=== PATIENT | female | born 1985 | race African-American/Black ===

== ENCOUNTER 2022-10-08 15:48 | Outpatient (RCR) | payer OTHER, SELFPAY ==
--- NOTE | 2022-10-08 16:32 | HP.PTEVAL ---
Patient's Visit Information MICHAEL CARDENAS is a 37 year old F referred to Physical Therapy by BANG Buchanan with a diagnosis of BPV. Date of Evaluation: 10/08/22 Physical Therapist: Flavio Honeycutt, FIONA, OCS, CSCS - Visit Plan Frequency: 1-2x /Week Duration: 2-4 Weeks Plan: 1-2x/week for 2-4 weeks as needed for. Positional treatments as needed(R baltazar today). monitor oculomotor for need for adaptation ex - Subjective Vertigo for a week since last Friday. Was at work and sat down for lunch and did not feel good. Got dizzy and nauseous and went home that day and dizzyness increased. laid out on in bed as she would spin if she moved. Friday had a friend take [facility] as dizzyness subsided but nausea did not. Gave meclizine and did not help at all. is slowly improving but not fast and has been up and down. Went back to work yesterday and today for 3 hours. Worse as she works. 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 Lays on couch when she goes home. Has handicapped 13 yo dtr and hard to take care of changing her diaper. It is terrrible. works evenings. spinning most of time, no more nausea now. Spinning is worse with turning head, walking, riding in car. Not driving and cannot. has tried Baltazar and does not get dizzy. - Objective Walks slow and not confidently but I back to PT [facility] room. Trasnfers I, holds head very still. Hesitant to move it too much. Cervical aROM is slow but WNL and without pain, feels stiff. - L Hallpike tiffany. + r hallpike tiffany with slight up torsional nystagmus and asyymetrical dizzyness for 15 seconds. Treated with Baltazar and then much better test and feeling. Walked out slowly but more steady than at arrival. - ocular tilt. - skew eye deviation. no nystagmus with gaze or spontaneous. 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 For the Purpose of:: To increase tolerance to activity/condition/position, To improve ability of physical actions for home/community/work/leisure Thank you for the opportunity to evaluate your patient. For Medicare and Medicare HMO plans, please review the plan of care and approve it. It will need to be FAXED BACK to us at [phone] for Medicare purposes. For Medicare only, by signing this I certify the plan of care. Please let me know if there are questions or concerns regarding this plan of care. Physician Signature: Date:
--- NOTE | 2022-12-03 12:59 | HP.PT.NRP ---
MICHAEL CARDENAS was seen in my office for initial evaluation on 10/08/22. The following Plan of Care was established for this patient: Initial Frequency: 1-2x /Week Initial Duration: 2-4 Weeks Patient/Client Instruction: Educate patient on: Condition, Plan of Care For the Purpose of:: To increase tolerance to activity/condition/position, To improve ability of physical actions for home/community/work/leisure, To improve gait and locomotor functions For the Purpose of:: To increase tolerance to activity/condition/position, To improve ability of physical actions for home/community/work/leisure This patient was last seen in our office 10/08/22. Pertinent comments regarding their Physical therapy will appear below: Pt seen for IE and POC set. She was treated with Luis maneuver. She cancelled the rest of her visits. AT this point, it has been over 6 weeks and i will discontinue due to nonattendance. At this point I will be discontinuing this patient from physical therapy. I would be happy to see this patient again in the future if found appropriate by the physician. Thank you! Flavio Honeycutt, DPT, OCS, CSCS Balance/Gait/Functional tests - Balance/Special Test Scores Functional Gait Assessment Score: 19 % Disability: 36.6700 Dizziness Score: 84
== END 2022-10-08 19:00 | disposition home or self-care (01) ==
LOC: PT 15:48
PROVIDERS: Referring Provider Physician Assistant; Visit Provider Physician Assistant
DX: H81.10 Benign paroxysmal vertigo, unspecified ear (principal)
CPT/HCPCS: 97110; 97161

== ENCOUNTER 2022-11-08 19:08 | Emergency (ER) | payer OTHER, SELFPAY ==
[2022-11-08 19:09] VITALS: BP 113/75; PULSE 121; RESP 18; TEMP 37.3; O2SAT 98; BMI 48.1
== END 2022-11-08 21:41 | disposition left against medical advice (07) ==
LOC: ED 21:42
DX: R50.9 Fever, unspecified (principal); Z53.21 Procedure and treatment not carried out due to patient leaving prior to being seen by health care provider; Z20.822 Contact with and (suspected) exposure to COVID-19
CPT/HCPCS: 87811

== ENCOUNTER → 2025-01-27 | Outpatient (CLI) | payer OTHER, SELFPAY ==
--- NOTE | 2025-01-27 09:30 | RAD_ITS ---
PROCEDURE: RIGHT HIP INJECTION UNDER FLUOROSCOPY REASON FOR EXAM: RIGHT HIP PAIN. OSTEOARTHRITIS. NO KNOWN INJURY. TECHNIQUE: I was the proctoring radiologist for Nati Carrillo NP during this hip injection procedure. An overview of the procedure with the patient occurred in the imaging suite. The patient was given ample opportunity to ask questions regarding the procedure. The patient signed the informed consent form. The patient was positioned on the fluoroscopic table in the supine position. The needle puncture site was marked under fluoroscopy. Sterile preparation of the skin was performed as usual. Local anesthesia was accomplished with lidocaine 2%. A 25 gauge, 3-1/2 inch spinal needle was then advanced through the skin until the needle tip touched the hip cortex. A small amount of Isovue-300 contrast was injected to document appropriate position of the needle in the joint capsule. Following documentation of the needle tip position, a mixture of 2 mL (80 mg) Kenalog and 3 mL of 0.5% bupivicaine was injected into the joint capsule. COMPARISON: None. FINDINGS: Unremarkable hip injection under fluoroscopy. RAD/Inj/Asp Jarett Jt Should/Hip/Knee IMPRESSION: 1. SUCCESSFUL RIGHT HIP INJECTION under fluoroscopy as detailed above. Patient tolerated the procedure well. Thank you for this referral. Reading Location: [place] [address]
[2025-01-27] MEDS: Lidocaine 2% (5ml sdv) 5 ML VIAL.MPF INFILT (09:50)
[2025-01-27] MEDS: Triamcinolone Acetonide 40 MG/ML Vial 80 MG INTRAARTIC (09:55)
[2025-01-27] MEDS: Bupivacaine 0.5% PF 10 ML VIAL INTRAARTIC (09:55)
== END | disposition home or self-care (01) ==
PROVIDERS: Referring Provider Orthopaedic Surgery; Visit Provider Orthopaedic Surgery
DX: M25.551 Pain in right hip (principal); M16.11 Unilateral primary osteoarthritis, right hip; G89.29 Other chronic pain
CPT/HCPCS: 20610; 77002

== ENCOUNTER → 2025-05-10 | Outpatient (CLI) | payer OTHER, SELFPAY ==
--- NOTE | 2025-05-10 13:30 | RAD_ITS ---
PROCEDURE: INJ/ASP JARETT JT SHOULD/HIP/KNEE 05/10/2025 REASON FOR EXAM: UNILATERAL PRIMARY OSTEOARTHRITIS, RIGHT HIP TECHNIQUE: INJ/ASP JARETT JT SHOULD/HIP/KNEE. The procedure as well as the benefits and possible complications including infection and bleeding were explained to the patient. Informed consent was obtained. The overlying skin was prepped and draped in the usual sterile fashion. Following local anesthetic application, a 22 gauge spinal needle was placed into the hip joint. 2 cc of Isovue-300 was injected for confirmation. Following this, injection of medication was performed. The patient tolerated the procedure well. 1 minute and 59 seconds of fluoroscopy. 76.3 mGy. 3 spot images were submitted. COMPARISON: None FINDINGS: Successful right shoulder injection. RAD/Inj/Asp Jarett Jt Should/Hip/Knee IMPRESSION: Patient tolerated the procedure well. Reading Location: [place] [address]
[2025-05-10] MEDS: Lidocaine 2% (5ml sdv) 5 ML VIAL.MPF INFILT (13:45)
[2025-05-10] MEDS: Triamcinolone Acetonide 40 MG/ML Vial 80 MG OPERA.SITE (13:49)
[2025-05-10] MEDS: Bupivacaine Mpf 0.5% 30 ML VIAL OPERA.SITE (13:49)
--- NOTE | 2025-05-10 14:01 | PCM.OPRPT ---
Problems Associated Problem List Diagnoses (1) Right hip pain: (2) Unilateral primary osteoarthritis, right hip: Multi Select Codes Radiology Rad Xray Procedures: 18763 Inj Asp major Joint - Hip, Knee and 08974-10 Fluoroscopic guidance for needle placement Operative Report (Standard) Operative Information Date of Procedure: 05/10/25 Pre-Operative Diagnosis: Right hip pain Post-Operative Diagnosis: Right hip pain Surgery/Procedure Performed: Fluoroscopic guided right hip injection manager laundry: No Type of Anesthesia: Local Procedure Start Time: 13:38 Procedure Stop Time: 13:56 Select all DRAINS/GRAFTS/IMPLANTS that apply: None Estimated Blood Loss: 0 Specimen collected: No Description of surgery: PROCEDURE: Fluoroscopic Guided right hip injection ORDERING PROVIDER: Dr. Amado INDICATION: Female, 40 years old. Right hip pain. PROVIDER: ANTOLIN Carrasco FLUOROSCOPY TIME: 1 minutes/59 seconds. 43.5 mGy CONSENT: The risks, benefits, and alternatives to the procedure were explained to the patient. The specific risks of bleeding, infection, and neurovascular injury were detailed and accepted. Witnessed informed consent was obtained. TECHNIQUE: The right hip access site was prepped with chlorhexidine and draped in sterile fashion. 2% Lidocaine was administered subcutaneously for local anesthesia. A 22-gauge spinal needle was positioned under radiographic fluoroscopic localization. Approximately 2 cc of Isovue 300 instilled for localization purposes. Medication was then injected. MEDICATIONS: 80 mg of Kenalog and 3 ml of 0.5% bupivacaine. The spinal needle was removed, and a dressing was applied. The patient tolerated the procedure well without any immediate complications. The procedure was proctored by interventional radiologist Dr. Hemphill. IMPRESSION: Successful fluoroscopic guided right hip injection. Surgical Findings: None Complications Complications: No
== END | disposition home or self-care (01) ==
LOC: RAD 13:12
PROVIDERS: PCP Family Medicine; Referring Provider Orthopaedic Surgery; Visit Provider Orthopaedic Surgery
DX: M16.11 Unilateral primary osteoarthritis, right hip (principal)
CPT/HCPCS: 20610; 77002; Q9967

== ENCOUNTER 2025-05-12 05:30 | Day surgery (SDC) | payer OTHER, SELFPAY ==
--- NOTE | 2025-04-26 12:54 | PCM.HP.BLA ---
History and Physical Date of Admission: 05/12/25 HPI: The patient is a 39 year old female presenting for pre-operative visit. She is scheduled for TLH, bilateral salpingectomy with left oophorectomy, for menorrhagia, fe def anemia, subserous fibroids, dyspareunia on 05/12/25. Procedure discussed along with risks, benefits and complications. Other alternatives discussed for management. Consent form signed? Yes. ? ? PAST MEDICAL HISTORY PAST MEDICAL HISTORYDiagnosisDate?Acute pain of both hips03/01/2022?Cymbalta has helped. 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 Sandoval ?Iron deficiency [id number]/24/2022?Low iron01/23/2021?Muscle spasm05/19/2013?MVP (mitral valve prolapse)02/10/2014?On 2 D echo 01/2014 ?Pain in joint, ankle and foot02/19/2012?Pseudotumor cerebri??Right hip pain06/25/2021?Saw Ortho (Dr. Amado) Told bone on bone.?Routine gynecological examination??Dr Flood?Valvular heart [id number]/10/2014?2D echo 01/2014: 1+ MVI and TI ?Vitamin D mtzolpqobn07/20/2014 ? ? PAST SURGICAL HISTORY PAST SURGICAL HISTORYProcedureLateralityDate?2D ECHO (EXEP)??EF=60%, mild MVP, +1 MVI and TI? DELIVERY ONLY???, low cervical? DELIVERY ONLY?07/07/2017?LIGATE FALLOPIAN TUBE?2017?at csection?PAST SURGICAL HISTORY OF?08/2000?TENDON REPAIR RIGHT WRIST?STRESS ECHO?02/13/2021?normal?TONSILLECTOMY PRIMARY/SECONDARY <AGE 12?02/2014?Tonsillectomy ? ? ? CURRENT MEDICATIONS Current Outpatient MedicationsMedicationSigDispenseRefill?norethindrone (AYGESTIN) 5 mg tabletTAKE 1 TABLET BY MOUTH EVERY DAY90 tablet3?zonisamide (ZONEGRAN) 50 mg capsuleTake 1 capsule by mouth once daily.90 capsule0?acetaminophen (TYLENOL ARTHRITIS ORAL)Take 2 tablets by mouth two times a day as needed.???meloxicam (MOBIC) 15 mg tabletTake 1 tablet by mouth once daily.30 tablet6?No current facility-administered medications for this visit. ? ? ALLERGIES: Diamox [Acetazolamide] ? PERSONAL HISTORY: SOCIAL HISTORY Social History?Tobacco Use?Smoking status:Never?Smokeless tobacco:NeverVaping Use?Vaping status:Never UsedSubstance Use Topics?Alcohol use:Yes??Comment: Occasionally, not while ?Drug use:No ? FAMILY HISTORY: FAMILY HISTORY FAMILY HISTORY ProblemRelationAge of Onset?SeizuresMother?? tonic-clonic, quiescent off medication?No Known ProblemsFather??No Known ProblemsSister??No Known ProblemsSister??No Known ProblemsSister??No Known ProblemsBrother??No Known ProblemsBrother??No Known ProblemsBrother??COPDMaternal Grandmother??DiabetesMaternal Grandfather??HypertensionMaternal Grandfather??HeartMaternal Grandfather?? had a difibulator?HypertensionPaternal Grandmother??other (Other)Paternal Grandmother?? No breast/electrical tech/project manager cancer?AneurysmPaternal Grandfather??other (cask gene mutation)Daughter??Coronary Artery DiseaseNo Family History? ? ? REVIEW OF SYMPTOMS: GENERAL: denies fevers or chills ENDOCRINOLOGY: has not been on steroids Cardiology : denies palpitations or chest pain Respiratory: denies SOB or cough Hematology: denies history of prolonged bleeding or easy bruising or VTE Allergy: Denies history of personal or family history of allergy to anesthesia ? PHYSICAL EXAMINATION: ? VITALS: Blood pressure 134/90, height 157.5 cm (5' 2), weight 104.3 kg (230 lb), last menstrual period 02/10/2025. ? GENERAL: The patient is well nourished, well hydrated in no acute distress. , The patient is oriented to time, place, and person. NECK: Supple. No lynphadenopathy, normal thyroid, no thyromegaly. LUNGS: Clear to auscultation bilaterally. no wheezes, rhonchi or rales HEART: Regular rate and rhythm, Normal heart sounds, and No murmurs or gallops ? Pelvic US: 01/21/25 Uterus Uterus: Visualized Uterus position: anteverted cervix, axial fundus Description of uterine malformations: none Myometrium: heterogeneous Endometrium: homogenous, borders of the endo not well defined Cervix details: cystic lesions identified suggesting superficial Nabothian cysts Uterus length 107 mm Uterus width 58 mm Uterus height 45 mm Uterus Vol 147.0 cm? Endometrial thickness, total 4.0 mm Fibroids: Fibroids identified Uterine fibroid D1 11 mm Uterine fibroid D2 11 mm Uterine fibroid D3 13 mm Uterine fibroid mean 11.7 mm Uterine fibroid vol 0.824 cm? Uterine fibroids findings: Left lateral posterior wall. Subserous Right Ovary Rt ovary: Visualized Rt ovary morphology: premenopausal normal follicular Rt ovary D1 33 mm Rt ovary D2 17 mm Rt ovary D3 14 mm Rt ovary Vol 4.0 cm? Left Ovary Lt ovary: Visualized Lt ovary morphology: premenopausal normal follicular Lt ovary D1 32 mm Lt ovary D2 30 mm Lt ovary D3 19 mm Lt ovary Vol 9.6 cm? Cul de Sac Visualized. no free fluid visualized ? ? IMPRESSION: menorrhagia, dyspareunia, fe def.anemia, subserosal fibroids ? PLAN: The risks/benefits/alternatives and personal involved for the planned TLH, LSO, right salpingectomy were reviewed with the patient. Her questions were answered to her satisfaction and she desires to proceed. Consent was signed. I reviewed with her postop instructions and expectations. ? ? I have reviewed and updated past medical and surgical history, medications and allergies Assessment & Plan Assessment/Plan (1) Menorrhagia: QUALIFIERS: Menorrhagia type: with regular cycle Qualified Code(s): N92.0 - Excessive and frequent menstruation with regular cycle (2) Dyspareunia: (3) Submucous uterine fibroid: (4) Fe deficiency anemia: QUALIFIERS: Iron deficiency anemia type: chronic blood loss Qualified Code(s): D50.0 - Iron deficiency anemia secondary to blood loss (chronic)
--- NOTE | 2025-04-29 10:16 | PAT.ANESEVAL ---
Pre-Assessment Diagnosis/Proposed Procedure Planned Operative Procedure(s): ERAS, Hysterectomy,TLH, bilateral salpingectomy, left oophorectomy, cystoscopy Anesthesia History Anesthesia History - children's counselor: Anesthesia History - children's counselor Hx Hospitalization No 04/29/25 08:25 Any Problems With Anesthesia Yes: PONV 04/29/25 08:25 Cholinesterase deficiency No 04/29/25 08:25 You/Your Family Experience No 04/29/25 08:25 fever (hyperthermia) with Relationship Recent Exposure to Contagious Disease Does patient have nerve No 04/29/25 08:25 stimulator Patient instructed to have device shut off --Does patient have Pacemaker or ICD? When Was Last Pacemaker Check QUESTION #4 FULL TEXT: You/Your Family Experience fever (hyperthermia) with Anesthesia Last Oral Intake Last Oral intake: Last Oral Intake NPO since Meds taken in AM with sips of water? Meds patient instructed to take am of surgery PONV PONV - children's counselor: PONV - children's counselor Female Yes 04/29/25 08:25 HX of Motion Sickness No 04/29/25 08:25 HX of N/V After Surgery No 04/29/25 08:25 Non-Smoker Yes 04/29/25 08:25 Duration of Surgery greater Yes 04/29/25 08:25 than 60 minutes Number of Risk Factors 3 04/29/25 08:25 PONV Score Moderate Risk 04/29/25 08:25 Height & Weight Height & Weight: Anesthesia: Height & Weight Height 5 ft 2 in 11/08/22 19:09 Respiratory Assessment Respiratory Assessment - children's counselor: Respiratory Tract Infection Hx - children's counselor Hx Respiratory Tract Infection No 04/29/25 08:25 STOP Sleep Apnea STOP Sleep Apnea - children's counselor: STOP Sleep Apnea - children's counselor Hx Hypertension No 04/29/25 08:25 Hx Sleep Apnea No 04/29/25 08:25 CPAP BIPAP Do you snore loudly (louder No 04/29/25 08:25 than talking or can be heard Do you often feel tired/ No 04/29/25 08:25 fatigued/ sleepy during daytime? Has anyone observed you stop No 04/29/25 08:25 breathing during sleep? STOP Results Negative 04/29/25 08:25 QUESTION #5 FULL TEXT : Do you snore loudly (louder than talking or can be heard through closed doors)? 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 Specify any problems Hx of Preganancy in last 3 No 04/29/25 08:25 Months Nurse Filling Out Transfusion MGRIKARENITH 04/29/25 08:25 & Questions: Date: 04/29/25 04/29/25 08:25 Time: 08:27 04/29/25 08:25 Patient unable to answer at this time (ie. confused, unrespo /Reproduction History /Reproductive History - children's counselor: /Reproductive Hx- children's counselor Hx Now No 04/29/25 08:25 Gestational Age (in weeks): EDC: Hx Hx Para Hx Section SAB No 04/29/25 08:25 [facility] Medical History (Updated 04/29/25 @ 08:36 by Love Olivo) Wears glasses Alcohol use Rash Low iron Migraine headache Non-smoker History of echocardiogram PONV (postoperative nausea and vomiting) BPPV (benign paroxysmal positional vertigo) Home Medications ?Medication ?Instructions ?Recorded ?Last Taken ?Type kjawuxfcdq-gvgfyuinzglci-gltktbeg 1 tab PO Q6H PRN Headache #40 tabs 07/10/17 Unknown Rx 50 mg-325 mg-40 mg tablet meclizine 25 mg tablet 25 mg PO TID PRN dizziness #30 tabs 10/03/22 Unknown Rx Allergy/AdvReac Type Severity Reaction Status Date / Time No Known Allergies Allergy Verified 04/29/25 08:22 Surgical History (Updated 04/29/25 @ 08:25 by Love Olivo) History of tonsillectomy and adenoidectomy History of Social History (Updated 07/31/18 @ 11:34 by Johnny CUENCA, PA) Smoking Status: Never smoker Audit: Pertinent Findings Pertinent Findings Echo (EF%) pertinent findings: 02/07/2014. EF 60%. Recommendation Anesthesia Recommendation Anesthesia recommendation: OPTIMIZED for anesthesia
[2025-05-05 09:28] LABS: Hematocrit 40.5 % (37-47); Hemoglobin 13.2 g/dL (12.0-15.0); Mean Corp Hgb Conc 32.6 g/dL (32-36); Mean Corpuscular Hgb 28.3 pg (27.0-32.0); Mean Corpuscular Volume 86.7 fL (81-99); Mean Platelet Vol. 10.7 fl (6.2-12.0); Platelet Count 395 K/mm3 (150-450); RBC Distribution Width CV 18.3 % (11.6-14.6); Red Blood Count 4.67 M/mm3 (4.2-5.4)
[2025-05-05 09:32] LABS: Prothrombin Time (Protime)PT. 13.4 SECONDS (11.7-14.9)
[2025-05-05 09:33] LABS: Partial Thromboplast Time 27.5 Seconds (24.1-36.2)
[2025-05-05 09:56] LABS: Magnesium 2.2 mg/dL (1.5-2.2)
[2025-05-12] VITALS (11 sets, daily range): BP systolic 108–158; BP diastolic 70–89; PULSE 65–84; RESP 14–16; TEMP 36.1–36.7; O2SAT 96–100; BMI 42.7
--- OUTSIDE RECORDS SUMMARY | 2025-05-12 05:33 | XMS RPT_ITS | CCD ---
Author Organization [facility] Care Team Providers Care Elastic Tape Inserter Name Role Phone Sanket Cruz MD Primary Care Provider MD Romulo Templeton Primary Care Provider Unavaila MD Romulo Valdez Referring Provider Unavailable BANG Elliott Attending Provider Sanket Cruz MD Primary Care Provider Sanket Cruz MD Primary Care Provider Sanket Cruz MD Primary Care Provider Milind DEPOSITING MACHINE OPERATOR.Funmilayo FELIX Unavailable Shena Dwyer PA-C Unavailable Mine Doty MD Unavailable Care Physician, No Primary Primary Care Provider Unavailable Dr. Erick Brownlee MD Attending Provider Dr. Erick Brownlee MD Referring Provider Sanket Cruz MD Primary Care Provider Sanket Cruz MD Primary Care Provider Draganhaussabiha DEPOSITING MACHINE OPERATOR.TYPESETTERS PRINTERAbadTanya Unavailable Milind DEPOSITING MACHINE OPERATOR.TYPESETTERS PRINTER Funmilayo Unavailable Heenaoble DEPOSITING MACHINE OPERATOR.ELVIRA Funmilayo Unavailable Shena Dwyer PA-C Unavailable SANKET CRUZ Primary Care Unavailable SANKET CRUZ Primary Care Unavailable FUNMILAYO DAVIES Referring Unavailable SANKET CRUZ Primary Care Unavailable FUNMILAYO DAVIES Referring Unavailable SANKET CRUZ Primary Care Unavailable MINE DOTY Referring Unavailable NANCY, SANKET A Primary Care Unavailable TANYA VERNON Attending Unavailable NANCY, SANKET A Primary Care Unavailable SORENMINE Referring Unavailable MINE DOTY Attending Unavailable NANCY, SANKET A Primary Care Unavailable SHENA DWYER Referring Unavailable GRANT, PETRA Attending Unavailable NANCY, SANKET A Primary Care Unavailable GRANT, PETRA Referring Unavailable NANCY, SANKET A Primary Care Unavailable GRANT, PETRA Referring Unavailable NANCY, SANKET A Primary Care Unavailable NANCY, SANKET A Attending Unavailable NANCY, SANKET A Primary Care Unavailable NANCY, SANKET A Primary Care Unavailable GRANT, PETRA Referring Unavailable NANCY, SANKET A Primary Care Unavailable GRANT, PETRA Referring Unavailable NANCY, SANKET A Primary Care Unavailable SOREN, MINE Referring Unavailable TIM YIP Attending Unavailable NANCY, SANKET A Primary Care Unavailable SHENA DWYER Attending Unavailable NANCY, SANKET A Primary Care Unavailable SHENA DWYER Referring Unavailable NANCY, SANKET A Primary Care Unavailable NANCY, SANKET A Attending Unavailable NANCY, SANKET A Primary Care Unavailable TIM YIP Attending Unavailable NANCY, SANKET A Primary Care Unavailable NANCY, SANKET A Primary Care Unavailable NANCY, SANKET A Referring Unavailable NANCY, SANKET A Primary Care Unavailable NANCY, SANKET A Referring Unavailable ERICK BROWNLEE Attending Unavailable NANCY, SANKET A Primary Care Unavailable MINE DOTY Attending Unavailable NANCY, SANKET A Primary Care Unavailable SOREN, MINE Referring Unavailable NANCY, SANKET A Primary Care Unavailable GRANT, PETRA Referring Unavailable NANCY, SANKET A Primary Care Unavailable GRANT, PETRA Referring Unavailable Nancy, Sanket Primary Care Unavailable Tim Yip Attending Unavailable Tim Yip Referring Unavailable Care Physician, No Primary Primary Care Unava ilable Erick Brownlee Attending Unavailable Erick Brownlee Referring Unavailable Nancy, Sanket Primary Care Unavailable Erick Brownlee Attending Unavailable Erick Brownlee Referring Unavailable BROOKE DUNCAN Attending Unavailable NANCY, SANKET A Primary Care Unavailable DAKAVITHAHAUSSABIHA, TANYA Referring Unavailable BROOKE DUNCAN Attending Unavailable NANCY, SANKET A Primary Care Unavailable NANCY, SANKET A Primary Care Unavailable ABAD VERNONISTEN Referring Unavailable Shena Dwyer PA-C Unavailable [phone] Allergies Allergy Classification Reported Allergen(s) Allergy Type Date of Onset Reaction(s) Facility (20 sources) acetaZOLAMIDE; Translations: [ACETAZOLAMIDE] Drug Allergy 05-16-2016 Other: See Comments [facility] Work Phone: Medications Current Medications Medication Drug Class(es) Dates Sig (Normalized) Sig (Original) acetaminophen 325 mg / butalbital 50 mg / caffeine 40 mg oral tablet (3 sources) Barbiturate, Central Nervous System Stimulant, Methylxanthine Start: 07-10-2017 Butalbital-Aceta minophen-Caff 1 TABLET tablet Active 1 {tbl} PO EVERY 6 HOURS as needed for Headache July 10, 2017 12:00am Start: 07-10-2017 take 1 tablet by king th every six hours Nlnkxtnyhp-Zfpvtmxjxtwna-Hxmo Active 1 T ABLET PO EVERY 6 HOURS July 09, 2017 11:00pm amoxicillin 875 mg / clavulanate 125 mg oral tablet (2 sources) Penicillin-class Antibacterial Start: 02-25-2025 End: 03-04-2025 take 1 tablet by mouth twice daily amoxicillin-clavulanate potassium (AUGMENTIN) 875-125 mg per tablet Indications: Acute otitis media, left Take 1 tablet by mouth two times a day for 7 days. 14 tablet 02/25/2025 03/04/2025 Active cefadroxil 500 mg oral capsule (1 source) Cephalosporin Antibacterial Start: 10-24-2022 End: 10-31-2022 take 1 capsule by mouth twice daily cefADROxil (DURICEF) 500 mg capsule Take 1 capsule by mouth twice daily for 7 days. 14 capsule 0 10/24/2022 10/31/2022 Active Comment on above: Take 1 capsule by mouth twice daily for 7 days. colistin 3 mg/ml / hydrocortisone 10 mg/ml / neomycin 3.3 mg/ml / thonzonium bromide 0.5 mg/ml otic suspension (1 source) Aminoglycoside Antibacterial, Corticosteroid Start: 10-24-2022 End: 10-31-2022 Ajwvwyoi-Ssemhl-JG-Thonz onium (CORTISPORIN-TC) otic suspension Use 3 Drops in the right ear three times daily for 7 days. (Disp 1 bottle) 10 mL 0 10/24/2022 10/31/2022 Active Comment on above: Use 3 Drops in the right ear three times daily for 7 days. (Disp 1 bottle) iv contrast (will be provided with radiology test) (2 sources) Start: 02-17-2025 End: 02-18-2025 inject 1 dose intravenously once iv contrast (will be provided with radiology test) MRI Brain Inject, intravenously, once for 1 dose.No IV access, insert saline lock prior to beginning of sedation, infusion, injection of imaging exam.Discontinue saline lock post exam. If Pt. has a central line or IVAD, may access for administration according to line specific nursing protocol.Once exam is complete flush line and de-access according to line specific nursing protocol in the MR contrast administration guidelines link 1 Each 02/17/2025 02/18/2025 Active Start: 02-17-2025 End: 02-18-2025 iv contrast (will be provide d with radiology test) MRV Brain Inject, intravenously, once for 1 dose. No IV access, insert saline lock prior to the beginning of sedation, infusion, injection of imaging exam. Discontinue saline lock post exam. If Pt. has a central line or IVAD, may access for administration according to line specific nursing protocol. Once exam is complete flush line and de-access according to line specific nursing protocol in the MR contrast administration guidelines link. 1 Each 02/17/2025 02/18/2025 Active meclizine hydrochloride 25 mg oral tablet (3 sources) Antiemetic Start: 10-03-2022 take 1 tablet by mouth three times daily as needed for dizziness Meclizine 25 mg tablet Active 25 mg PO THREE TIMES A DAY as needed for dizziness October 03, 2022 1:00am meloxicam 15 mg oral tablet (20 sources) Nonsteroidal Anti-inflammatory Drug Start: 12-02-2024 take 1 tablet by mouth once daily meloxicam (MOBIC) 15 mg tablet Take 1 tablet by mouth once daily. 30 tablet 6 12/02/2024 Active norethindrone acetate 5 mg oral tablet (20 sources) Start: 02-03-2025 End: 03-29-2025 take 1 tablet by mouth once daily norethindrone (AYGESTIN) 5 mg tablet TAKE 1 TABLET BY MOUTH EVERY DAY 90 tablet 3 03/29/2025 Active oxyCODONE hydrochloride 5 mg oral tablet (3 sources) Opioid Agonist Start: 07-11-2017 take 1 tablet by mouth every six hours as needed for pain Oxycodone 5 MG tablet Active 5 mg PO EVERY 6 HOURS NEEDED as needed for Pain July 11, 2017 12:00am DO NOT TAKE WITHIN 6 HOURS OF FIORICET perflutren lipid microspheres 1.3 mL in NaCl (PF) 0.9% 10 mL injection (DEFINITY) (6 sources) Start: 12-20-2020 End: 03-21-2022 perflutren lipid microspheres 1.3 mL in NaCl (PF) 0.9% 10 mL injection (DEFINITY) Prenatabs FA (3 sources) Start: 07-07-2017 Prenatabs FA Active 1 {tbl} PO DAILY July 07, 2017 12:00am Start: 07-07-2017 take 1 tablet by king th once daily Prenatabs FA Active 1 TABLET PO DAILY July 06, 2017 11:00pm 125 ml sodium chloride 9 mg/ml prefilled syringe (6 sources) Start: 12-20-2020 End: 03-21-2022 sodium chloride 0.9 % (flush) 10 mL (BD POSIFLUSH) zonisamide 50 mg oral capsule (20 sources) Anti-epileptic Agent Start: 02-17-2025 End: 06-09-2025 take 1 capsule by mouth once daily zonisamide (ZONEGRAN) 50 mg capsule Take 1 capsule by mouth once daily. 90 capsule 03/11/2025 06/09/2025 Active Start: 08-15-2022 End: 10-24-2022 take 1 capsule by mouth once daily zonisamide (ZONEGRAN) 25 mg capsule Take 1 capsule by mouth once daily for 10 days. 10 capsule 0 08/15/2022 10/24/2022 Discontinued Start: 07-02-2022 End: 09-30-2022 take 1 capsule by mouth once daily zonisamide (ZONEGRAN) 100 mg capsule Indications: Pseudotumor cerebri , Chronic intractable headache, unspecified headache type Take 1 capsule by mouth once daily. 30 capsule 2 07/02/2022 08/15/2022 Discontinued Start: 04-29-2022 End: 07-02-2022 zonisamide (ZONEGRAN) 50 mg capsule Indications: Pseudotumor cerebri , Chronic intractable headache, unspecified headache type Take 1 capsule at bedtime for 2 weeks. After 2 weeks increase to 2 capsules at bedtime. 60 capsule 2 04/29/2022 07/02/2022 Discontinued Comment on above: Take 1 capsule at be dtime for 2 weeks. After 2 weeks increase to 2 capsules at bedtime. Take 1 capsule by mo uth once daily. Take 1 capsule by mo uth once daily for 10 days. Completed/Discontinued Medications Medication Drug Class(es) Dates Sig (Normalized) Sig (Original) acetaminophen 500 mg oral tablet (20 sources) Start: 02-14-2022 End: 12-02-2024 take 2 tablets by mouth every six hours as needed acetaminophen (TYLENOL EXTRA STRENGTH) 500 mg tablet Take 2 tablets by mouth every 6 hours as needed (pain). FOR PAIN. 02/14/2022 12/02/2024 Discontinued (Other) take 2 tablets by mo uth twice daily as needed acetaminophen (TYLENOL ARTHRITIS ORAL) T luzmaria 2 tablets by mouth two times a day as needed. Active Comment on above: Take 2 tablets by mo uth every 6 hours as needed (pain). FOR PAIN. cholecalciferol 0.05 mg oral capsule (20 sources) Vitamin D Start: End: take 1 capsule by mouth once daily Cholecalciferol, Vitamin D3, 50 mcg (2,000 unit) cap Take 1 capsule by mouth once daily. 07/26/2021 12/02/2024 Discontinued (Other) Comment on above: Take 1 capsule by mo uth once daily. ciprofloxacin 3 mg/ml ophthalmic solution (12 sources) Quinolone Antimicrobial Start: End: take 3 drop(s) into the eye(s) twice daily ciprofloxacin HCl (CILOXAN) 0.3 % ophthalmic solution 3 drops to affected ear twice a day for 7 days 10 mL 11/08/2022 10/20/2024 Discontinued Comment on above: 3 drops to affected ear twice a day for 7 days DULoxetine 30 mg delayed release oral capsule (20 sources) Serotonin and Norepinephrine Reuptake Inhibitor Start: End: take 1 capsule by mouth once daily DULoxetine (CYMBALTA) 30 mg capsule Indications: Anxiety with depression Take 1 capsule by mouth once daily. 90 capsule 1 10/24/2022 12/02/2024 Discontinued (Other) Comment on above: Take 1 capsule by [facility] once daily. 24 hr ferrous sulfate 142 mg extended release oral tablet (20 sources) Start: End: take 1 tablet by mouth once daily Ferrous Sulfate (SLOW FE) 142 mg (45 mg iron) TbER Take 1 tablet by mouth once daily. 01/23/2021 12/02/2024 Discontinued (Other) Comment on above: Take 1 tablet by [facility] once daily. ibuprofen 600 mg oral tablet (20 sources) Nonsteroidal Anti-inflammatory Drug Start: End: take 1 tablet by mouth every six hours as needed ibuprofen (MOTRIN) 600 mg tablet Take 1 tablet by mouth every 6 hours as needed (pain). FOR PAIN. 02/14/2022 12/02/2024 Discontinued (Other) Comment on above: Take 1 tablet by [facility] every 6 hours as needed (pain). FOR PAIN. 10 ml iron sucrose 20 mg/ml injection (5 sources) Parenteral Iron Replacement Start: End: 200 mg, INTRAVENOUS, ONCE, 1 dose, On Fri02/25/25 at 1330, Please conduct a 30 minute post dose observation. Start: 02-23-2025 End: 02-23-2025 200 mg, INTRAVENOUS, ONCE, 1 dose, On Fri02/23/25 at 1330, Please conduct a 30 minute post dose observation. Start: 02-21-2025 End: 02-21-2025 200 mg, INTRAVENOUS, ONCE, 1 dose, On Fri02/21/25 at 1430, Please conduct a 30 minute post dose observation. Start: 02-16-2025 End: 02-16-2025 200 mg, INTRAVENOUS, ONCE, 1 dose, On Fri02/16/25 at 1030, Please conduct a 30 minute post dose observation. Start: 02-14-2025 End: 02-14-2025 200 mg, INTRAVENOUS, ONCE, 1 dose, On Fri02/14/25 at 0830, Please conduct a 30 minute post dose observation. methylPREDNISolone (10 sources) Corticosteroid Start: 04-29-2022 End: 10-24-2022 methylPREDNISolone (MEDROL, SHEILA,) 4 mg Dose-Pack Take as directed on package. 1 Package 0 04/29/2022 10/24/2022 Discontinued Start: 04-29-2022 methylPREDNISo lone (MEDROL, SHEILA,) 4 mg Dose-Pack Take as directed on package. 1 Package 0 04/29/2022 Suspended Start: 04-29-2022 methylPREDNISo lone (MEDROL, SHEILA,) 4 mg Dose-Pack Take as directed on package. 1 Package 0 04/29/2022 Active Comment on above: Take as directed on package. omeprazole 20 mg delayed release oral capsule (16 sources) Proton Pump Inhibitor Start: 06-25-20 End: 10-24-20 take 1 capsule by mouth once daily before breakfast omeprazole (PRILOSEC) 20 mg capsule Indications: GERD without esophagitis Take 1 capsule by mouth daily before breakfast. 1/2 hr before meal. 30 capsule 5 06/25/2021 10/24/2022 Discontinued Comment on above: Take 1 capsule by mo [facility] daily before breakfast. 1/2 hr before meal. prednisoLONE acetate 10 mg/ml ophthalmic suspension (12 sources) Corticosteroid Start: 11-08-20 End: 10-20-20 prednisoLONE acetate (PRED FORTE) 1 % ophthalmic suspension 3 drops to affected ear three times a day. For 7 days 10 mL 11/08/2022 10/20/2024 Discontinued Comment on above: 3 drops to affected ear three times a day. For 7 days topiramate 25 mg oral tablet (14 sources) Start: 11-19-20 End: 10-20-20 take 1 tablet by mouth twice daily topiramate (TOPAMAX) 25 mg tablet TAKE 1 TABLET BY MOUTH TWICE DAILY. START TOPAMAX AFTER STOPPING ZONEGRAN. 60 tablet 2 11/19/2022 10/20/2024 Discontinued Start: 08-15-2022 End: 11-13-2022 take 1 tablet by mouth twice daily topiramate (TOPAMAX) 25 mg tablet Take 1 tablet by mouth twice daily. Start Topamax after stopping Zonegran. 60 tablet 2 08/15/2022 11/13/2022 Active Comment on above: [facility] Start Topamax after stopping Zonegran. Problems Active Problems Problem Classification Problem Date Documented Date Episodic/Chronic Abdominal pain (20 sources) Pain in female pelvis; Translations: [Pelvic and perineal pain] Onset: 02-24-2025 Episodic Anxiety disorders (20 sources) Mixed anxiety and depressive disorder; Translations: [Other specified anxiety disorders] Onset: 06-25-2021 09-25-2021 Chronic Benign neoplasm of uterus (20 sources) Subserous leiomyoma of uterus; Translations: [Subserosal leiomyoma of uterus] Onset: 02-24-2025 02-24-2025 Episodic Conditions associated with dizziness or vertigo (5 sources) Benign paroxysmal positional vertigo; Translations: [Benign paroxysmal vertigo, unspecified ear] Episodic Deficiency and other anemia (20 sources) Iron deficiency anemia due to blood loss; Translations: [Iron deficiency anemia secondary to blood loss (chronic)] Onset: 10-24-2022 02-14-2025 Chronic Deficiency and other anemia (2 sources) Iron deficiency anemia secondary to blood loss (chronic); Translations: [Iron deficiency anemia due to chronic blood loss] Onset: 02-14-2025 Chronic Deficiency and other anemia (20 sources) Iron deficiency anemia; Translations: [Iron deficiency anemia, unspecified] Onset: 10-24-2022 Episodic Esophageal disorders (20 sources) Gastroesophageal reflux disease without esophagitis; Translations: [Gastro-esophageal reflux disease without esophagitis] Onset: 06-25-2021 09-25-2021 Chronic Fever of unknown origin (1 source) Fever; Translations: [Fever, unspecified] 10-20-2024 Episodic Headache; including migraine (8 sources) Headache; Translations: [Headaches] Episodic Headache; including migraine (1 source) Headache; including migraine; Translations: [Chronic intractable headache, unspecified headache type] Onset: 02-17-2025 Heart valve disorders (20 sources) Mitral valve prolapse; Translations: [Nonrheumatic mitral (valve) prolapse] Onset: 02-10-2014 11-19-2021 Chronic Malaise and fatigue (2 sources) Fatigue; Translations: [Chronic fatigue, unspecified] Onset: 01-31-2025 01-31-2025 Chronic Nutritional deficiencies (20 sources) Vitamin D deficiency; Translations: [Vitamin D deficiency, unspecified] Onset: 02-10-2014 08-04-2014 Chronic Osteoarthritis (20 sources) Arthritis of right hip; Translations: [Unilateral primary osteoarthritis, right hip] Onset: 12-30-2024 12-30-2024 Chronic Other ear and sense organ disorders (1 source) Acute otitis externa of right ear; Translations: [Unspecified acute noninfective otitis externa, right ear] Episodic Other ear and sense organ disorders (3 sources) Otalgia, right ear; Translations: [Otalgia, unspecified] Onset: 03-03-2025 10-20-2024 Episodic Other ear and sense organ disorders (1 source) Tinnitus of vascular origin; Translations: [Pulsatile tinnitus, left ear] 04-07-2025 Episodic Other ear and sense organ disorders (1 source) Pulsatile tinnitus, left ear; Translations: [Pulsatile tinnitus, left ear] Onset: 04-07-2025 Episodic Other female genital disorders (20 sources) Dyspareunia; Translations: [Dyspareunia] Onset: 04-05-2013 08-04-2014 Chronic Other female genital disorders (3 sources) Abnormal uterine bleeding; Translations: [Abnormal uterine and vaginal bleeding, unspecified] 01-20-2025 Chronic Other female genital disorders (20 sources) Deep pain on intercourse; Translations: [Deep dyspareunia] Onset: 04-05-2013 02-24-2025 Chronic Other female genital disorders (1 source) Abnormal uterine and vaginal bleeding, unspecified; Translations: [Abnormal uterine bleeding (AUB)] Onset: 01-21-2025 Chronic Other nervous system disorders (20 sources) Benign intracranial hypertension; Translations: [Benign intracranial hypertension] Onset: 11-14-2015 06-25-2021 Chronic Other nervous system disorders (2 sources) Mass of body structure; Translations: [Benign intracranial hypertension] Chronic Other nervous system disorders (3 sources) Benign intracranial hypertension; Translations: [IIH (idiopathic intracranial hypertension)] Onset: 05-06-2022 Chronic Other nervous system disorders (2 sources) Other chronic pain; Translations: [Chronic intractable headache, unspecified headache type] Onset: 12-02-2024 Chronic Other non-traumatic joint disorders (2 sources) Pain in right hip; Translations: [Chronic right hip pain] Onset: 12-02-2024 Episodic Other nutritional; endocrine; and metabolic disorders (20 sources) Morbid obesity; Translations: [Morbid (severe) obesity due to excess calories] Onset: 08-04-2014 08-17-2015 Chronic Other nutritional; endocrine; and metabolic disorders (1 source) Severe obesity; Translations: [Class 3 severe obesity with serious comorbidity and body mass index (BMI) of 40.0 to 44.9 in adult, unspecified obesity type] 04-07-2025 Chronic Other nutritional; endocrine; and metabolic disorders (1 source) Body mass index (BMI) 40.0-44.9, adult; Translations: [Class 3 severe obesity with serious comorbidity and body mass index (BMI) of 40.0 to 44.9 in adult, unspecified obesity type] Onset: 04-07-2025 Chronic Other nutritional; endocrine; and metabolic disorders (2 sources) Weight loss; Translations: [Abnormal weight loss] 01-31-2025 Episodic Other screening for suspected conditions (not mental disorders or infectious disease) (4 sources) MRI scan abnormal; Translations: [Abnormal findings on diagnostic imaging of other specified body structures] Onset: 04-07-2025 03-25-2025 Chronic Other screening for suspected conditions (not mental disorders or infectious disease) (13 sources) Mammography abnormal; Translations: [Other abnormal and inconclusive findings on diagnostic imaging of breast] Onset: 01-31-2025 09-16-2023 Episodic Otitis media and related conditions (4 sources) Acute right otitis media; Translations: [Otitis media, unspecified, right ear] Onset: 03-03-2025 Episodic Leanna-; endo-; and myocarditis; cardiomyopathy (except that caused by tuberculosis or sexually transmitted disease) (20 sources) Heart valve disorder; Translations: [Endocarditis, valve unspecified] Onset: 02-10-2014 11-19-2021 Chronic Residual codes; unclassified (1 source) Behavior finding; Translations: [Other sleep apnea] Chronic Residual codes; unclassified (1 source) Intolerant of heat; Translations: [Other general symptoms and signs] Episodic Rheumatoid arthritis and related disease (20 sources) Inflammatory polyarthropathy; Translations: [Inflammatory polyarthropathy] Onset: 02-10-2014 06-25-2021 Chronic Unclassified (1 source) Class 3 severe obesity with serious comorbidity and body mass index (BMI) of 40.0 to 44.9 in adult, unspecified obesity type; Translations: [Class 3 severe obesity with serious comorbidity and body mass index (BMI) of 40.0 to 44.9 in adult, unspecified obesity type] Onset: 04-07-2025 Past or Other Problems Problem Classification Problem Date Documented Date Episodic/Chronic Contraceptive and procreative management (20 sources) Sterilization requested; Translations: [Encounter for sterilization] Onset: 05-09-2017 Resolved: 08-12-2017 08-12-2017 Episodic Deficiency and other anemia (1 source) Iron deficiency anemia, unspecified; Translations: [Iron deficiency anemia, unspecified iron deficiency anemia type] Onset: 10-24-2022 Episodic Diabetes mellitus without complication (20 sources) High hemoglobin A1c level; Translations: [Other abnormal glucose] Onset: 07-26-2021 07-26-2021 Episodic Early or threatened labor (20 sources) False labor before 37 completed weeks of gestation, unspecified trimester; Translations: [Threatened premature labor, antepartum condition or complication] Onset: 10-04-2008 Resolved: 12-28-2008 12-28-2008 Episodic Malaise and fatigue (3 sources) Malaise and fatigue; Translations: [Other malaise] Onset: 01-20-2025 01-20-2025 Episodic Menstrual disorders (20 sources) Menorrhagia; Translations: [Excessive and frequent menstruation with regular cycle] Onset: 05-16-2016 Resolved: 04-28-2017 04-28-2017 Chronic Nonmalignant breast conditions (5 sources) Lump in left breast; Translations: [Unspecified lump in the left breast, unspecified quadrant] Onset: 11-03-2024 10-09-2023 Episodic Nutritional deficiencies (20 sources) Serum iron low; Translations: [Iron deficiency] Onset: 01-23-2021 01-23-2021 Episodic Other aftercare (20 sources) Patient encounter status; Translations: [salvage determiner (current) use of non-steroidal anti-inflammatories (NSAID)] Onset: 08-04-2014 08-04-2014 Episodic Other aftercare (20 sources) salvage determiner current use of non-steroidal anti-inflammatory drug; Translations: [salvage determiner (current) use of non-steroidal anti-inflammatories (NSAID)] Onset: 08-04-2014 08-04-2014 Episodic Other circulatory disease (20 sources) H/O: heart disorder; Translations: [Personal history of other diseases of the circulatory system] Onset: 12-12-2016 12-20-2020 Episodic Other complications of (3 sources) Nausea and vomiting; Translations: [Vomiting of , unspecified] Onset: 12-12-2016 Resolved: 08-12-2017 08-12-2017 Episodic Other complications of (20 sources) Vomiting of , unspecified; Translations: [Unspecified vomiting of , unspecified as to episode of care or not applicable] Onset: 12-12-2016 Resolved: 08-12-2017 08-12-2017 Episodic Other connective tissue disease (20 sources) Spasm; Translations: [Other muscle spasm] Onset: 05-19-2013 06-25-2021 Episodic Other female genital disorders (20 sources) History of premature labor; Translations: [Personal history of pre-term labor] Onset: 12-12-2016 Resolved: 08-12-2017 08-12-2017 Episodic Other infections; including parasitic (20 sources) Personal history of other infectious and parasitic diseases; Translations: [History of 2019 novel coronavirus disease (COVID-19)] Onset: 11-01-2020 12-20-2020 Episodic Other non-traumatic joint disorders (20 sources) Arthralgia of the ankle and/or foot; Translations: [Pain in unspecified ankle and joints of unspecified foot] Onset: 02-19-2012 06-25-2021 Episodic Other non-traumatic joint disorders (20 sources) Pain in right hip joint; Translations: [Pain in right hip] Onset: 06-25-2021 06-25-2021 Episodic Other non-traumatic joint disorders (20 sources) Hip pain; Translations: [Pain in right hip] Onset: 06-25-2021 Episodic Other and delivery including normal (20 sources) Normal in primigravida; Translations: [Encounter for supervision of normal first , unspecified trimester] Onset: 04-08-2008 Resolved: 12-28-2008 12-28-2008 Episodic Residual codes; unclassified (20 sources) Family history of hereditary disease; Translations: [Family history of other specified conditions] Onset: 12-12-2016 12-20-2020 Episodic Results Test Name Value Interpretation Reference Range Facility DBT Breast - left diagnostic for implanton 05-10-2025 IMPRESSION: There is no mammographic or sonographic evidence of malignancy. Return to annual screening mammogram is recommended. Annual mammogram will be due in 1 year. BI-RADS Category 2: Benign RISK: Based on the Tyrer-Cuzick (TC) risk assessment model, this patient has a 11.4% lifetime risk of developing breast cancer, meaning they are at average risk for developing breast cancer. However, this is only an estimate based on available history provided on the patient's questionnaire. We encourage all patients to talk with their providers about these results, further recommendations for managing breast health, and appropriate supplemental screening options if the patient has dense breast tissue. Interpreting Radiologist: Yanci Segura M.D. Electronically signed on: 05/10/2025 Director Of Partner Marketing: TULIO Transcribe Date/Time: May 10 2025 8:17A Dictated by: YANCI SEGURA MD This examination was interpreted and the report reviewed and electronically signed by: YANCI SEGURA MD on May 10 2025 9:02AM [facility] DIVISION OF RADIOLOGY * * *Final Report* * * DATE OF EXAM: May 10 2025 8:29AM [facility] 0628 - [facility] [employer] LT / PROCEDURE REASON: Abnormal mammogram * * * * Physician Interpretation * * * * RESULT: [place] [address] #[id number] - [facility] [employer] #[id number] - [facility] [employer] BREAST LTD LT HISTORY: 40 year-old patient presents for short term follow-up of left breast findings described on prior mammogram. Patient states no personal history of breast cancer. COMPARISON STUDIES: The present examination has been compared to prior imaging studies dated 10/08/2023 (mammogram), 04/13/2024 (ultrasound), 04/13/2024 (mammogram), 11/03/2024 (ultrasound) and 11/03/2024 (mammogram). MAMMOGRAM TECHNIQUE: The study was acquired using full field digital technology and interpreted from soft copy. Digital Breast Tomosynthesis (DBT) images were obtained and used to assist in the interpretation of this examination. MAMMOGRAM FINDINGS: The breast is heterogeneously dense, which may obscure small masses. There is a stable focal asymmetry measuring 0.6 cm in the left breast at 3 o'clock. No suspicious masses, calcifications or other abnormalities are seen in the left breast. ULTRASOUND TECHNIQUE: Targeted ultrasound of the indicated area was performed. Nava scale images were saved. ULTRASOUND FINDINGS: Ultrasound demonstrates a stable complicated cyst measuring 0.6 cm in the left breast at 3 o'clock. There are no suspicious findings in the imaged area. DIVISION OF RADIOLOGY Provider, Dayanna Almarazfrancis garcia Bowdle - 05/10/2025 * * *Final Report* * * DATE OF EXAM: May 10 2025 8:29AM [facility] 0628 - [facility] DI[facility] W DIANN LT / PROCEDURE REASON: Abnormal mammogram * * * * Physician Interpretation * * * * RESULT: [place] [address] #[id number] - [facility] DIAG W DIANN LT #[id number] - [facility] US BREAST LTD LT HISTORY: 40 year-old patient presents for short term follow-up of left breast findings described on prior mammogram. Patient states no personal history of breast cancer. COMPARISON STUDIES: The present examination has been compared to prior imaging studies dated 10/08/2023 (mammogram), 04/13/2024 (ultrasound), 04/13/2024 (mammogram), 11/03/2024 (ultrasound) and 11/03/2024 (mammogram). MAMMOGRAM TECHNIQUE: The study was acquired using full field digital technology and interpreted from soft copy. Digital Breast Tomosynthesis (DBT) images were obtained and used to assist in the interpretation of this examination. MAMMOGRAM FINDINGS: The breast is heterogeneously dense, which may obscure small masses. There is a stable focal asymmetry measuring 0.6 cm in the left breast at 3 o'clock. No suspicious masses, calcifications or other abnormalities are seen in the left breast. ULTRASOUND TECHNIQUE: Targeted ultrasound of the indicated area was performed. Nava scale images were saved. ULTRASOUND FINDINGS: Ultrasound demonstrates a stable complicated cyst measuring 0.6 cm in the left breast at 3 o'clock. There are no suspicious findings in the imaged area. IMPRESSION IMPRESSION: There is no mammographic or sonographic evidence of malignancy. Return to annual screening mammogram is recommended. Annual mammogram will be due in 1 year. BI-RADS Category 2: Benign RISK: Based on the Tyrer-Cuzick (TC) risk assessment model, this patient has a 11.4% lifetime risk of developing breast cancer, meaning they are at average risk for developing breast cancer. However, this is only an estimate based on available history provided on the patient's questionnaire. We encourage all patients to talk with their providers about these results, further recommendations for managing breast health, and appropriate supplemental screening options if the patient has dense breast tissue. Interpreting Radiologist: Yanci Segura M.D. Electronically signed on: 05/10/2025 Director Of Partner Marketing: TULIO Transcribe Date/Time: May 10 2025 8:17A Dictated by: YANCI SEGURA MD This examination was interpreted and the report reviewed and electronically signed by: YANCI SEGURA MD on May 10 2025 9:02AM EST [facility] No Panel InformationOrdered By: [facility] Provider on 05-10-2025 [facility] No Panel Informationon 05-10 Radiology Study observation (narrative) [facility] US Breast - left limitedon 0 05-10-2025 IMPRESSION: There is no mammographic or sonographic evidence of malignancy. Return to annual screening mammogram is recommended. Annual mammogram will be due in 1 year. BI-RADS Category 2: Benign RISK: Based on the Tyrer-Cuzick (TC) risk assessment model, this patient has a 11.4% lifetime risk of developing breast cancer, meaning they are at average risk for developing breast cancer. However, this is only an estimate based on available history provided on the patient's questionnaire. We encourage all patients to talk with their providers about these results, further recommendations for managing breast health, and appropriate supplemental screening options if the patient has dense breast tissue. Interpreting Radiologist: Yanci Segura M.D. Electronically signed on: 05/10/2025 Director Of Partner Marketing: TULIO Transcribe Date/Time: May 10 2025 8:47A Dictated by : YANCI SEGURA MD This examination was interpreted and the report reviewed and electronically signed by: YANCI SEGURA MD on May 10 2025 9:02AM EST DIVISION OF RADIOLOGY * * *Final Report* * * DATE OF EXAM: May 10 2025 8:57AM [facility] 0593 - [facility] BREAST LTD LT / PROCEDURE REASON: Abnormal mammogram * * * * Physician Interpretation * * * * [facility] [address] [place] [address] #[id number] - [facility] DIAG W DIANN LT #[id number] - [facility] [employer] BREAST LTD LT HISTORY: 40 year-old patient presents for short term follow-up of left breast findings described on prior mammogram. Patient states no personal history of breast cancer. COMPARISON STUDIES: The present examination has been compared to prior imaging studies dated 10/08/2023 (mammogram), 04/13/2024 (ultrasound), 04/13/2024 (mammogram), 11/03/2024 (ultrasound) and 11/03/2024 (mammogram). MAMMOGRAM TECHNIQUE: The study was acquired using full field digital technology and interpreted from soft copy. Digital Breast Tomosynthesis (DBT) images were obtained and used to assist in the interpretation of this examination. MAMMOGRAM FINDINGS: The breast is heterogeneously dense, which may obscure small masses. There is a stable focal asymmetry measuring 0.6 cm in the left breast at 3 o'clock. No suspicious masses, calcifications or other abnormalities are seen in the left breast. ULTRASOUND TECHNIQUE: Targeted ultrasound of the indicated area was performed. Nava scale images were saved. ULTRASOUND FINDINGS: Ultrasound demonstrates a stable complicated cyst measuring 0.6 cm in the left breast at 3 o'clock. There are no suspicious findings in the imaged area. DIVISION OF RADIOLOGY Provider, [facility] - 05/10/2025 * * *Final Report* * * DATE OF EXAM: May 10 2025 8:57AM [facility] 0593 - [facility] [employer] BREAST [employer] LT / PROCEDURE REASON: Abnormal mammogram * * * * Physician Interpretation * * * * [facility] [address] [place] [address] #[id number] - [facility] DIAG W DIANN LT #[id number] - [facility] [employer] BREAST LTD LT HISTORY: 40 year-old patient presents for short term follow-up of left breast findings described on prior mammogram. Patient states no personal history of breast cancer. COMPARISON STUDIES: The present examination has been compared to prior imaging studies dated 10/08/2023 (mammogram), 04/13/2024 (ultrasound), 04/13/2024 (mammogram), 11/03/2024 (ultrasound) and 11/03/2024 (mammogram). MAMMOGRAM TECHNIQUE: The study was acquired using full field digital technology and interpreted from soft copy. Digital Breast Tomosynthesis (DBT) images were obtained and used to assist in the interpretation of this examination. MAMMOGRAM FINDINGS: The breast is heterogeneously dense, which may obscure small masses. There is a stable focal asymmetry measuring 0.6 cm in the left breast at 3 o'clock. No suspicious masses, calcifications or other abnormalities are seen in the left breast. ULTRASOUND TECHNIQUE: Targeted ultrasound of the indicated area was performed. Nava scale images were saved. ULTRASOUND FINDINGS: Ultrasound demonstrates a stable complicated cyst measuring 0.6 cm in the left breast at 3 o'clock. There are no suspicious findings in the imaged area. IMPRESSION IMPRESSION: There is no mammographic or sonographic evidence of malignancy. Return to annual screening mammogram is recommended. Annual mammogram will be due in 1 year. BI-RADS Category 2: Benign RISK: Based on the Tyrer-Cuzick (TC) risk assessment model, this patient has a 11.4% lifetime risk of developing breast cancer, meaning they are at average risk for developing breast cancer. However, this is only an estimate based on available history provided on the patient's questionnaire. We encourage all patients to talk with their providers about these results, further recommendations for managing breast health, and appropriate supplemental screening options if the patient has dense breast tissue. Interpreting Radiologist: Yanci Segura M.D. Electronically signed on: 05/10/2025 Director Of Partner Marketing: TULIO Transcribe Date/Time: May 10 2025 8:47A Dictated by : YANCI SEGURA MD This examination was interpreted and the report reviewed and electronically signed by: YANCI SEGURA MD on May 10 2025 9:02AM EST [facility] CBC-Complete Blood Cnt No Di ffon 05-05-2025 Erythrocyte distribution width (RBC) [Ratio] 18.3 % High 11.6-14.6 [facility] Comment on above: Performed By: #### B TSPAT, L300.4310, L100.0500, L501.5200, L300.3900 #### [facility] Laboratory [address] [place], [address] Hematocrit (Bld) [Volume fraction] 40.5 % Normal 37-47 [facility] Comment on above: Performed By: #### B TSPAT, L300.4310, L100.0500, L501.5200, L300.3900 #### [facility] [address] [place], [address] Hemoglobin (Bld) [Mass/Vol] 13.2 g/dL Normal 12.0-15.0 [facility] Comment on above: Performed By: #### B TSPAT, L300.4310, L100.0500, L501.5200, L300.3900 #### [facility] [address] [place], [address] MCH (RBC) [Entitic mass] 28.3 pg Normal 27.0-32.0 [facility] Comment on above: Performed By: #### B TSPAT, L300.4310, L100.0500, L501.5200, L300.3900 #### [facility] [address] [place], [address] MCHC (RBC) [Mass/Vol] 32.6 g/dL Normal 32-36 [facility] Comment on above: Performed By: #### B TSPAT, L300.4310, L100.0500, L501.5200, L300.3900 #### [facility] [address] [place], [address] MCV (RBC) [Entitic vol] 86.7 fL Normal 81-99 [facility] Comment on above: Performed By: #### B TSPAT, L300.4310, L100.0500, L501.5200, L300.3900 #### [facility] [address] [place], [address] Platelet mean volume (Bld) [Entitic vol] 10.7 fL Normal 6.2-12.0 [facility] Comment on above: Performed By: #### B TSPAT, L300.4310, L100.0500, L501.5200, L300.3900 #### [facility] [address] [place], [address] Platelets (Bld) [#/Vol] 395 10*3/uL Normal 150-450 [facility] Comment on above: Performed By: #### B TSPAT, L300.4310, L100.0500, L501.5200, L300.3900 #### [facility] [address] [place], [address] RBC (Bld) [#/Vol] 4.67 10*6/uL Normal 4.2-5.4 [facility] Comment on above: Performed By: #### B TSPAT, L300.4310, L100.0500, L501.5200, L300.3900 #### [facility] [address] [place], [address] RDW SD 58.0 fl High 35.1-43.9 [facility] Comment on above: Performed By: #### B TSPAT, L300.4310, L100.0500, L501.5200, L300.3900 #### [facility] [address] [place], [address] WBC (Bld) [#/Vol] 9.0 10*3/uL Normal 4.4-11.0 [facility] Comment on above: Performed By: #### B TSPAT, L300.4310, L100.0500, L501.5200, L300.3900 #### [facility] [address] [place], [address] Magnesiumon 05-05-2025 Magnesium [Mass/Vol] 2.2 mg/dL Normal 1.5-2.2 [facility] Comment on above: Performed By: #### B TSPAT, L300.4310, L100.0500, L501.5200, L300.3900 #### [facility] [address] [place], [address] Partial Thromboplast Timeon 05-05-2025 aPTT Coag (Bld) [Time] 27.5 s Normal 24.1-36.2 [facility] Comment on above: Performed By: #### B TSPAT, L300.4310, L100.0500, L501.5200, L300.3900 #### [facility] [address] [place], [address] Prothrombin Time w/INRon INR Coag (PPP) [Relative time] 1.0 {INR} Normal [facility] Comment on above: Performed By: #### B TSPAT, L300.4310, L100.0500, L501.5200, L300.3900 #### [facility] [address] [place], [address] PT Coag (PPP) [Time] 13.4 s Normal 11.7-14.9 [facility] Comment on above: Performed By: #### B TSPAT, L300.4310, L100.0500, L501.5200, L300.3900 #### [facility] [address] [place], [address] Type AND Screen - PAT ONLYon 05-05-2025 ABO and Rh group Nom (Bld) Blood group O Rh(D) positive Normal [facility] Comment on above: Order Comment: Surge ry Date: 05/12/25 Reason for Laboratory Test PREOP [id number] No N N S HYSTERECTOMY Performed By: #### B TSPAT, L300.4310, L100.0500, L501.5200, L300.3900 #### [facility] [address] [place], [address] MR/PATAayushTrista 04-29-2025 MR/SINDHU [facility] Medical Records Department [address] [place] [address] PAT - Anesthesia 04/29/25 1016 MR#: [id number] Acct: [id number] Name: MICHAEL CASTRO Rep #: [id number] : 1985 40 From: Eligio Khan MD PCP: Dr. Sanket Cruz MD Status:PRE SDC Y Race: AA [place] [facility] [place]-Assessment Diagnosis/Proposed Procedure Planned Operative Procedure(s): ERAS, Hysterectomy,TLH, bilateral salpingectomy, left oophorectomy, cystoscopy Anesthesia History Anesthesia History - media intern: Anesthesia History - media intern Hx Hospitalization No 04/29/25 08:25 Any Problems With Anesthesia Yes: PONV 04/29/25 08:25 Cholinesterase deficiency No 04/29/25 08:25 You/Your Family Experience No 04/29/25 08:25 fever (hyperthermia) with Relationship Recent Exposure to Contagious Disease Does patient have nerve No 04/29/25 08:25 stimulator Patient instructed to have device shut off --Does patient have Pacemaker or ICD? When Was Last Pacemaker Check QUESTION #4 FULL TEXT: You/Your Family Experience fever (hyperthermia) with Anesthesia Last Oral Intake Last Oral intake: Last Oral Intake NPO since Meds taken in AM with sips of water? Meds patient instructed to take am of surgery PONV PONV - media intern: PONV - media intern Female Yes 04/29/25 08:25 HX of Motion Sickness No 04/29/25 08:25 HX of N/V After Surgery No 04/29/25 08:25 Non-Smoker Yes 04/29/25 08:25 Duration of Surgery greater Yes 04/29/25 08:25 than 60 minutes Number of Risk Factors 3 04/29/25 08:25 PONV Score Moderate Risk 04/29/25 08:25 Height Weight Height Weight: Anesthesia: Height Weight Height 5 ft 2 in 11/08/22 19:09 Respiratory Assessment Respiratory Assessment - media intern: Respiratory Tract Infection Hx - media intern Hx Respiratory Tract Infection No 04/29/25 08:25 STOP Sleep Apnea STOP Sleep Apnea - media intern: STOP Sleep Apnea - media intern Hx Hypertension No 04/29/25 08:25 Hx Sleep Apnea No 04/29/25 08:25 CPAP BIPAP Do you snore loudly (louder No 04/29/25 08:25 than talking or can be heard Do you often feel tired/ No 04/29/25 08:25 fatigued/ sleepy during daytime? Has anyone observed you stop No 04/29/25 08:25 breathing during sleep? STOP Results Negative 04/29/25 08:25 QUESTION #5 FULL TEXT : Do you snore loudly (louder than talking or can be heard through closed doors)? 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 Specify any problems Hx of Preganancy in last 3 No 04/29/25 08:25 Months Nurse Filling Out Transfusion MARGO 04/29/25 08:25 Questions: Date: 04/29/25 04/29/25 08:25 Time: 08:27 04/29/25 08:25 Patient unable to answer at this time (ie. confused, unrespo /Reproductio n History /Reproductiv e History - media intern: /Reproductiv e Hx- media intern Hx Now No 04/29/25 08:25 Gestational Age (in weeks): EDC: Hx Hx Para Hx Section SAB No 04/29/25 08:25 PFSH Medical History (Updated 04/29/25 @ 08:36 by Love Olivo) Wears glasses Alcohol use Rash Low iron Migraine headache Non-smoker History of echocardiogram PONV (postoperative nausea and vomiting) BPPV (benign paroxysmal positional vertigo) Home Medications ???Medication ???Instructions ???Recorded ???Last Taken ???Type butalbital-acetaminop hen-caffeine 1 tab PO Q6H PRN Headache #40 tab s 07/10/17 Unknown Rx 50 mg-325 mg-40 mg tablet meclizine 25 mg tablet 25 mg PO TID PRN dizziness #30 tab s 10/03/22 Unknown Rx Allergy/AdvReac Type Severity Reaction Status Date / Time No Known Allergies Allergy Verified 04/29/25 08:22 Surgical History (Updated 04/29/25 @ 08:25 by Love Olivo) History of tonsillectomy and adenoidectomy History of Social History (Updated 07/31/18 @ 11:34 by Johnny CUENCA, BANG) Smoking Status: Never smoker (more content not included)... [facility] 04-28-2025 [facility] Telephone ([facility]) MICHAEL CASTRO ([id number]) 1985 F Date Time Provider Department 04/28/25 [facility] During your visit today, we recorded the following information about you: Candice Powell RN 04/28/2025 9:00 AM Signed Received message from pt, pt had LP on 04/26, yesterday around 3 pm when waking from a nap, pt experience intense headache, lowed whirring sound, like a helicopter in my head. Pain worse when standing or sitting, some relief when laying, whirring noise does not stop. Pt has slight neck stiffness, waves of nausea, light sensitivity and dizziness. Candice Powell RN 04/28/2025 12:12 PM Signed Spoke with pt, reviewed message from provider- Please have her stay preferentially supine and hydrate for the next 1-2 days for starters. Caffeine ok. OP was 17. Probably low pressure. Pt verbalized understanding, will call pt tomorrow with update. Brooke Duncan MD 04/29/2025 6:53 AM Signed Maya's LP shows an OP of 17 cm H2O. Post procedurally she has headaches with characteristics suggestive of low intracranial pressure. It is unclear to me that venous sinus stenting is indicated at this point in time if her OP is well within normal. Zonisamide seems to be working to lower the pressure to the targeted range at this time, and further lowering of ICP with CSF drainage appears to have worsened her symptoms. We will set up a follow up to discuss this but at this time I would hold back on pursuing venous stenting as it may cause other issues if her presenting symptoms at this time are not associated with an increased pressure. Brooke Duncan MD Staff, Neuroendovascular Intervention Candice Powell RN 04/29/2025 11:18 AM Signed Spoke with pt, pt states pain slightly less, still unable to sit for long periods of time. Advise pt as discussed yesterday to lay supine for today and tomorrow. Schedule pt VV f/u with Dr Duncan on 05/05 at 10:00 Joss Melvin 04/29/2025 3:42 PM Signed Received clinical notes from [facility]. Scanned in chart. Brooke Duncan MD 04/30/2025 3:12 PM Signed Optometry notes reviewed. Bilateral optic disc elevation noted. OCT done but findings not detailed. Stated impression of papilledema based on findings. Significance and chronicity of the stated findings are both unclear to me based on the report. This is particularly in consideration of her normal OP on the recent LP. She will be seeing Dr Gomez on 06/06. Brooke Duncan MD Staff, Neuroendovascular Intervention Allergies As of Date: 04/28/2025 Noted Allergy Reaction DIAMOX (ACETAZOLAMIDE) 05/16/2016 14 - Other: See Comments Comments: Numbness in hands and feet Date Reviewed: 04/26/2025 Reviewed by: Angie Crawford, RN - Fully Assessed Reason for Visit: Senior Manager Mmcoe - Other [4503] Cmt: message Prescriptions as of 04/30/2025 - norethindrone (AYGESTIN) 5 mg tablet TAKE 1 TABLET BY MOUTH EVERY DAY - zonisamide (ZONEGRAN) 50 mg capsule Take 1 capsule by mouth once daily. - acetaminophen (TYLENOL ARTHRITIS ORAL) Take 2 tablets by mouth two times a day as needed. - meloxicam (MOBIC) 15 mg tablet Take 1 tablet by mouth once daily. 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] 10/04/2008 12/28/2008 Pain in joint, ankle and foot [M25.579] 02/19/2012 Deep dyspareunia [N94.12] 04/05/2013 Muscle spasm [M62.838] 05/19/2013 Routine gynecological examination [Z01.419] 10/26/2014 Inflammatory polyarthropathy (HCC) [M06.4] 02/10/2014 Vitamin D deficiency [E55.9] 02/10/2014 MVP (mitral valve prolapse) [I34.1] 02/10/2014 Valvular heart disease [I38] 02/10/2014 Well adult exam [Z00.00] 08/04/2014 NSAID long-term use [Z79.1] 08/04/2014 Morbid obesity (HCC) [E66.01] 08/04/2014 Pseudotumor cerebri [G93.2] 11/14/2015 Menorrhagia with regular cycle [N92.0] 05/16/2016 04/28/2017 Encounter for screening for cardiovascular diso*05/16/2016 History of delivery, currently pregnan*12/12/2016 08/12/2017 History of labor [Z87.51] 12/12/2016 08/12/2017 Family history of genetic disease [Z84.89] 12/12/2016 Nausea and vomiting during [O21.9] 12/12/2016 08/12/2017 History of mitral valve disorder [Z86.79] 12/12/2016 Patient requested diagnostic testing [Z01.89] 12/12/2016 01/14/2017 Request for sterilization [Z30.2] 05/09/2017 08/12/2017 History of 2019 novel coronavirus disease (COVI*11/01/2020 Low iron [E61.1] 01/23/2021 Right hip pain [M25.551] 06/25/2021 Anxiety with depression [F41.8] 06/25/2021 GERD without esophagitis [K21.9] 06/25/2021 Elevated hemoglobin A1c [R73.09] 07/26/2021 Acute pain of both hips [M25.551, M25.552] 03/01/2022 Medication management [Z79.899] 03/01/2022 Iron deficiency anemia due to chronic blood los*12 (more content not included)... Normal [facility] BRIEF OP NOTon 04-26-2025 BRIEF OP NOT HNO ID: [id number] Author: SHARI TEE PA-C Service: Interventional Radiology Author Type: Physician Balcony Worker Type: Brief Op Note Filed: 04/26/2025 11:00 Note Text: LUMBAR PUNCTURE BRIEF OPERATIVE / PROCEDURE NOTE LOG ID: [id number] SURGERY/PROCEDURE DATE: 04/26/25 Incision/Procedure Start Time: 10:38 AM Incision Close/Procedure End Time: 10:52 AM PROCEDURALIST(S) AND RAIL CAR PAINTER/SANDBLASTER(S): Surgeon(s) and Role: Shari Tee PA-C SURGERY/PROCEDURE(S): fluoroscopic guided LP ANESTHESIA: Local 5cc of 1% lidocaine FINDINGS: successful LP at L3-4. [place] to clear CSF. OP 17. ESTIMATED BLOOD LOSS: <1 mls SPECIMENS: 3.5cc of clear CSF sent in 1 vial. Specimen obtained, labeled and verified with Knockup Worker (RT); RT verbalized specimen sent to lab. COMPLICATIONS: None CLOSURE TECHNIQUE: N/A PRE-OP/PRE-PROCEDURE DIAGNOSIS: IIH (idiopathic intracranial hypertension) [G93.2] POST-OP/POST-PROCEDUR E DIAGNOSIS: Same as Preop SIGNATURE: Shari Tee PA-C PATIENT NAME: Michael Castro DATE: 04/26/25 TIME: 10:57 AM Normal [facility] CSF MANUAL DIFFon 04-26-2025 DIF TTL, CSF 100 cells counted Normal [facility] Comment on above: Order Comment: Speci men Type: CEREBROSPINAL FLUID SPECIMENOrdering Facility: [facility] Address: [address] [place] [address] Performed By: #### L [id number], 11528-6 ####[facility] LABCLIA [id number] [address] [place] [address] [place] LYMPH%, CSF 72 % Normal 50-90 [facility] Comment on above: Order Comment: Speci men Type: CEREBROSPINAL FLUID SPECIMENOrdering Facility: [facility] Address: [address] [place] [address] Performed By: #### L [id number], 90638-1 ####[facility] LABCLIA [id number] [address] [place] [address] [place] MONO%, CSF 4 % Low 10-50 [facility] Comment on above: Order Comment: Speci men Type: CEREBROSPINAL FLUID SPECIMENOrdering Facility: [facility] Address: [address] [place] [address] Performed By: #### L [id number], 04386-5 ####[facility] LABCLIA [id number] [address], [place] [address] [place] NEUT%, CSF 24 % High 0-3 [facility] Comment on above: Order Comment: Speci men Type: CEREBROSPINAL FLUID SPECIMENOrdering Facility: [facility] Address: [address] [place] [address] Performed By: #### L [id number], 86599-3 ####[facility] LABCLIA [id number] [address], [place] [address] [place] Cell count panel (CSF)on Clarity (CSF) Clear Normal Clear [facility] Comment on above: Order Comment: Speci men Type: CEREBROSPINAL FLUID SPECIMENOrdering Facility: [facility] Address: [address] [place] [address] Performed By: #### L [id number], 00367-5 ####[facility] LABCLIA [id number] [address], [facility] [place] Clarity (Unsp spec) Not Indicated Normal Clear Cl [facility] Comment on above: Order Comment: Speci men Type: CEREBROSPINAL FLUID SPECIMENOrdering Facility: [facility] Address: [address] [place] [address] Performed By: #### L [id number], 46627-3 ####[facility] LABCLIA [id number] [address] Color (CSF) Colorless Normal Colorless [facility] Comment on above: Order Comment: Speci men Type: CEREBROSPINAL FLUID SPECIMENOrdering Facility: [facility] Address: [address] [place] [address] Performed By: #### L [id number], 57398-1 ####[facility] LABCLIA [id number] [place] [address] [place] Color (Spun CSF) Not Indicated Normal Colorless [facility] Comment on above: Order Comment: Speci men Type: CEREBROSPINAL FLUID SPECIMENOrdering Facility: [facility] Address: [address] [place] [address] Performed By: #### L UL8915, 23003-7 ####[facility] LABCLIA [id number] [place] [address] [place] CSF TUBE NUMBER Tube 1 Normal [facility] Comment on above: Order Comment: Speci men Type: CEREBROSPINAL FLUID SPECIMENOrdering Facility: [facility] Address: [address] [place] [address] Performed By: #### L [id number], 22098-1 ####[facility] LABCLIA [id number] [place] [address] [place] RBC Manual cnt (CSF) [#/Vol] 514 cells/uL High 0-5 [facility] Comment on above: Order Comment: Speci men Type: CEREBROSPINAL FLUID SPECIMENOrdering Facility: [facility] Address: [address] [place] [address] Performed By: #### L [id number], 00344-9 ####[facility] LABCLIA [id number] [address] [place] WBC Manual cnt (CSF) [#/Vol] 1 cells/uL Normal 0-5 [facility] Comment on above: Order Comment: Speci men Type: CEREBROSPINAL FLUID SPECIMENOrdering Facility: [facility] Address: [address] [place] [address] Performed By: #### L [id number], 32147-3 ####[facility] LABIA [id number] [address] [place] Glucose CSF-mCncon 5 Glucose (CSF) [Mass/Vol] 59 mg/dL Normal 40-70 [facility] Comment on above: Order Comment: Speci men Type: CEREBROSPINAL FLUID SPECIMENOrdering Facility: [facility] Address: [address] [place] [address] Result Comment: Lumb ar CSF glucose values of healthy patients are approximately 60% of the plasma values and must always be compared with a concurrently measured plasma value for adequate clinical interpretation. References: 1. Glucose HK (GLUC3) [package insert V 12.0 [place] Citizen]. [employer], [place], [place]. March 2016. 2. Levi Vazquez, Gonzalo, H. (2015). Chapter 7: Glucose and Lactate. Noe Estrada al.(eds.), Cerebrospinal Fluid in Clinical Neurology. [place]: [employer]. Performed By: #### 2 880-3, 2342-4 ####[facility] LABCLIA [id number] [place] [address] [place] IR LP FOR DRAINAGE (PRESSURE )on 04-26-2025 IR LP FOR DRAINAGE (PRESSURE) * * *Final Report* * * * * * SEE BOTTOM OF REPORT FOR ADDENDED TEXT * * * DATE OF EXAM: Apr 26 2025 11:01AM NDA 0853 - IR LP FOR DRAINAGE (PRESSURE) / PROCEDURE REASON: IIH (idiopathic intracranial hypertension) [G93.2 (ICD-10-CM)] * * * * Physician Interpretation * * * * * * * * * * * * ORIGINAL REPORT * * * * * * * * PROCEDURE: Diagnostic Lumbar Puncture Under Fluoroscopic Guidance HISTORY: The patient is a 40 years year old Female who presented with IIH- idiopathic intracranial hypertension . Consent: The risks, benefits, treatment options, potential complications, equipment, and personnel to be involved were discussed with the patient. All of her questions were answered and consent was obtained prior to procedure. The patient indicated she was willing to proceed. General: A) Medication Reconciliation: The patient's medications and allergies were reviewed in the electronic medical record and reconciled to the proposed procedure/treatment. B) Pre-Procedure Medications: Medication #1: None C) Positioning: The patient was placed Prone on the fluoroscopy table. D) The Lumbar dorsal soft tissues. were then sterile prepped and draped. E) Time Out: A time out was performed immediately prior to procedure start with the nursing, and interventional team, correctly identifying the name, medical record number, procedure, anatomy (including marking of site and side), patient position, procedure consent form, relevant diagnostic and radiology test results, antibiotic administration, safety precautions, and procedure-specific equipment needs. Timeout Affirmation (if attending not present): PA, RN, and RT present. F) Anesthesia Type: administration of local anesthesia. Local Anesthesia: 5 mL 1% Lidocaine G) Anesthesia Was Administered For A Total Of None. H) Patient Monitoring: N/A TECHNIQUE/RESULT: A) Access Site: 15 cm 20 gauge spinal needle from a L3-4 approach at the L4-L5 level. B) Counting reference: Lumbosacral junction. For the purposes of this report, L4-5 is considered the level of the iliac crest. C) Procedure Details: Using sterile procedure, local anesthesia was introduced to the skin and subcutaneous tissues as outlined above. Diagnostic Volume: 3.5 mL of CSF was withdrawn and forwarded to the lab for analysis. Opening pressure was recorded at 17 cm H2O CSF Color: Clear D) Estimated Blood Loss: <1 mL E) Type of Removed Specimens: CSF F) Number of Specimens vials: 1 Fluoroscopic Radiation Summary: Fluoroscopic guidance was performed in conjunction with the machine technician. Plane A, Air Kerma: 25.6 mGy Dose Area Product (DAP): 1481.7 mGy*cm2 Fluoro time: 0:05 min: sec Post-Procedure: Conclusion: The patient was transferred to the Radiology Recovery Room in stable condition and observed for approximately 60 minutes. Immediate Complications: None. Delayed Complications (will be reported as an addendum to the original report): None apparent at this time Timeout Time and Procedure Start Time: 1038 Procedure End Time and Sign Out Time: 1052 IMPRESSION: TECHNICALLY SUCCESSFUL DIAGNOSTIC LUMBAR PUNCTURE. The procedure was performed by: Shari Tee PA-C * * * * * * * * ADDENDUM #1 * * * * * * * * addendum: 15 cm ?20 gauge spinal needle ?from a left paramedian approach at the L3-L4 level. Director Of Partner Marketing: JACKIE Transcribe Date/Time: Apr 26 2025 3:30P Dictated by : SHARI TEE PA-C This examination was interpreted and the report reviewed and electronically signed by: SHARI TEE PA-C on Apr 26 2025 1:06PM EST This document has been addended by: SHARI TEE PA-C on Apr 26 2025 3:30PM EST Normal [facility] NURSING PROGon 04-26-2025 NURSING PROG HNO ID: [id number] Author: JANINE DIXON RN Service: ? Author Type: Registered Nurse Type: Nursing Progress Note Filed: 04/27/2025 11:07 Note Text: Completed post procedure phone call. Michael Castro is feeling well and has returned to her baseline diet and activity. Denies questions or concerns related to her appointment on 04/26/2025 and had no surgical site concerns. Janine Dixon RN, BSN Normal [facility] PT EDon 04-26-2025 PT ED HNO ID: [id number] Author: SHAWN METZGER RN Service: Nursing Author Type: Registered Nurse Type: Patient Education Filed: 04/26/2025 10:44 Note Text: AMBULATORY PATIENT EDUCATION TOPIC: Survival Skills: SURVIVAL SKILLS: Complication Prevention READINESS TO LEARN COGNITIVE ABILITY: Alert and oriented MOTIVATION TO LEARN: Interested FAMILY SUPPORT: High - Very involved in pt care INSTRUCTION PROVIDED TO: Patient PATIENT LEARNS BEST BY: Verbal Instruction FACTORS AFFECTING LEARNING: None PHYSICAL LIMITATIONS AFFECTING LEARNING: None LEARNING RESPONSE DIAGNOSIS: IIH (idiopathic intracranial hypertension) [G93.2] METHOD OF INSTRUCTION: Verbal instruction PATIENT / FAMILY RESPONSE: Verbalizes understanding of: POST-PROCEDURE INSTRUCTIONS-Correct actions to take to reduce post procedure complications FOLLOW-UP PLAN: Reinforce - Repeat previous content SUPPLEMENTAL MATERIAL: None REFERRAL (RECOMMENDATION): None Electronically Signed By: Shawn Metzger RN In Department: HOSP MAIN [id number] Normal [facility] Prot CSF-mCncon 04-26-2025 Protein (CSF) [Mass/Vol] 22 mg/dL Normal 15-45 [facility] Comment on above: Order Comment: Speci men Type: CEREBROSPINAL FLUID SPECIMENOrdering Facility: [facility] Address: [address] [place] [address] Result Comment: The sample contains red blood cells, which may indicate blood contamination due to a traumatic lumbar puncture. This may falsely increase the concentration of protein in CSF and invalidate the protein result. Interpret CSF protein with caution and within the context of the red blood cell count, if available. Performed By: #### 2 880-3, 2342-4 ####[facility] LABCLIA [id number] [place] [address] [place] CBC W Auto Differential pane l (Bld)on 04-22-2025 Basophils (Bld) [#/Vol] 0.05 10*3/uL Normal <0.11 [facility] Comment on above: Order Comment: Speci men Type: BLOOD SPECIMENOrdering Facility: [facility] Address: [address] [place] [address] Performed By: #### 5 7021-8 ####[facility] [id number] [place] [address] [place] Basophils/100 WBC (Bld) 0.5 % Normal [facility] Comment on above: Order Comment: Speci men Type: BLOOD SPECIMENOrdering Facility: [facility] Address: [address] [place] [address] Performed By: #### 5 7021-8 ####[facility] [id number] [place] [address] [place] Differential cell count method Nom (Bld) Auto Normal [facility] Comment on above: Order Comment: Speci men Type: BLOOD SPECIMENOrdering Facility: [facility] Address: [address] [place] [address] Performed By: #### 5 7021-8 ####[facility]ITALJOSH [id number] [place] [address] [place] Eosinophils (Bld) [#/Vol] 0.12 10*3/uL Normal <0.46 [facility] Comment on above: Order Comment: Speci men Type: BLOOD SPECIMENOrdering Facility: [facility] Address: [address] [place] [address] Performed By: #### 5 7021-8 ####[facility]ITALGARCIABEAVER VALLEY [facility] [id number] [place] [address] [place] Eosinophils/100 WBC (Bld) 1.2 % Normal [facility] Comment on above: Order Comment: Speci men Type: BLOOD SPECIMENOrdering Facility: [facility] Address: [address] [place] [address] Performed By: #### 5 7021-8 ####[facility] [id number] [place] [address] [place] Erythrocyte distribution width (RBC) [Ratio] 20.2 % High 11.5-15.0 [facility] Comment on above: Order Comment: Speci men Type: BLOOD SPECIMENOrdering Facility: [facility] Address: [address] [place] [address] Performed By: #### 5 7021-8 ####[facility]ITALNCLIA [id number] [place] [address] [place] Hematocrit (Bld) [Volume fraction] 39.8 % Normal 36.0-46.0 [facility] Comment on above: Order Comment: Speci men Type: BLOOD SPECIMENOrdering Facility: [facility] Address: [address] [place] [address] Performed By: #### 5 7021-8 ####[facility] HALLEWNVLIA [id number] [place] [address] [place] Hemoglobin (Bld) [Mass/Vol] 12.8 g/dL Normal 11.5-15.5 [facility] Comment on above: Order Comment: Speci men Type: BLOOD SPECIMENOrdering Facility: [facility] Address: [address] [place] [address] Performed By: #### 5 7021-8 ####[facility] HOSPITALLIA [id number] [place] [address] [place] Immature granulocytes (Bld) [#/Vol] 10*3/uL Normal <0.10 [facility] Comment on above: Order Comment: Speci men Type: BLOOD SPECIMENOrdering Facility: [facility] Address: [address] [place] [address] Performed By: #### 5 7021-8 ####[facility] [id number] [place] [address] [place] Immature granulocytes/100 WBC (Bld) 0.2 % Normal [facility] Comment on above: Order Comment: Speci men Type: BLOOD SPECIMENOrdering Facility: [facility] Address: [address] [place] [address] Performed By: #### 5 7021-8 ####[facility] [id number] [place] [address] [place] Lymphocytes (Bld) [#/Vol] 3.61 10*3/uL Normal 1.00-4.00 [facility] Comment on above: Order Comment: Speci men Type: BLOOD SPECIMENOrdering Facility: [facility] Address: [address] [place] [address] Performed By: #### 5 7021-8 ####[facility] HOSPITALLIA [id number] [place] [address] [place] Lymphocytes/100 WBC (Bld) 37.3 % Normal [facility] Comment on above: Order Comment: Speci men Type: BLOOD SPECIMENOrdering Facility: [facility] Address: [address] [place] [address] Performed By: #### 5 7021-8 ####[facility]ITALNCBEAVER [facility] [id number] [address] [place] [facility] MCH (RBC) [Entitic mass] 27.4 pg Normal 26.0-34.0 [facility] Comment on above: Order Comment: Speci men Type: BLOOD SPECIMENOrdering Facility: [facility] Address: [address] [place] [address] Performed By: #### 5 7021-8 ####[facility] [id number] [place] [address] [place] MCHC (RBC) [Mass/Vol] 32.2 g/dL Normal 30.5-36.0 [facility] Comment on above: Order Comment: Speci men Type: BLOOD SPECIMENOrdering Facility: [facility] Address: [address] [place] [address] Performed By: #### 5 7021-8 ####[facility] [id number] [place] [address] [place] MCV (RBC) [Entitic vol] 85.0 fL Normal 80.0-100.0 [facility] Comment on above: Order Comment: Speci men Type: BLOOD SPECIMENOrdering Facility: [facility] Address: [address] [place] [address] Performed By: #### 5 7021-8 ####[facility]OSPITALNCLI [id number] [place] [address] [place] Monocytes (Bld) [#/Vol] 0.56 10*3/uL Normal <0.87 [facility] Comment on above: Order Comment: Speci men Type: BLOOD SPECIMENOrdering Facility: [facility] Address: [address] [place] [address] Performed By: #### 5 7021-8 ####[facility] HOSPITALRINAA [id number] [place] [address] [place] Monocytes/100 WBC (Bld) 5.8 % Normal [facility] Comment on above: Order Comment: Speci men Type: BLOOD SPECIMENOrdering Facility: [facility] Address: [address] [place] [address] Performed By: #### 5 7021-8 ####[facility]OSPITALNCJENA [id number] [place] [address] [place] Neutrophils (Bld) [#/Vol] 5.33 10*3/uL Normal 1.45-7.50 [facility] Comment on above: Order Comment: Speci men Type: BLOOD SPECIMENOrdering Facility: [facility] Address: [address] [place] [address] Performed By: #### 5 7021-8 ####[facility] [id number] [place] [address] [place] Neutrophils/100 WBC (Bld) 55.0 % Normal [facility] Comment on above: Order Comment: Speci men Type: BLOOD SPECIMENOrdering Facility: [facility] Address: [address] [place] [address] Performed By: #### 5 7021-8 ####[facility] HOSPITALLIA [id number] [place] [address] [place] Nucleated RBC (Bld) [#/Vol] 10*3/uL Normal <0.01 [facility] Comment on above: Order Comment: Speci men Type: BLOOD SPECIMENOrdering Facility: [facility] Address: [address] [place] [address] Performed By: #### 5 7021-8 ####[facility] ERTOWNCLIA [id number] [place] [address] [place] Nucleated RBC/100 WBC (Bld) [Ratio] 0.0 /100 WBC Normal [facility] Comment on above: Order Comment: Speci men Type: BLOOD SPECIMENOrdering Facility: [facility] Address: [address] [place] [address] Performed By: #### 5 7021-8 ####[facility] HALLEALIQUIPPARINAA [id number] [place] [address] [place] Platelet mean volume (Bld) [Entitic vol] 10.6 fL Normal 9.0-12.7 [facility] Comment on above: Order Comment: Speci men Type: BLOOD SPECIMENOrdering Facility: [facility] Address: [address] [place] [address] Performed By: #### 5 7021-8 ####[facility] HOSPITALGARCIAA [id number] [place] [address] [place] Platelets (Bld) [#/Vol] 357 10*3/uL Normal 150-400 [facility] Comment on above: Order Comment: Speci men Type: BLOOD SPECIMENOrdering Facility: [facility] Address: [address] [place] [address] Performed By: #### 5 7021-8 ####[facility] HALLEALIQUIPPAGARCIALIA [id number] [place] [address] [place] RBC (Bld) [#/Vol] 4.68 10*6/uL Normal 3.90-5.20 [facility] Comment on above: Order Comment: Speci men Type: BLOOD SPECIMENOrdering Facility: [facility] Address: [address] [place] [address] Performed By: #### 5 7021-8 ####[facility]ITALNCLIA [id number] [place] [address] [place] WBC (Bld) [#/Vol] 9.69 10*3/uL Normal 3.70-11.00 [facility] Comment on above: Order Comment: Speci men Type: BLOOD SPECIMENOrdering Facility: [facility] Address: [address] [place] [address] Performed By: #### 5 7021-8 ####[facility] [id number] [place] [address] [place] Ferritin SerPl-ncon 2024 Ferritin [Mass/Vol] 79.9 ng/mL Normal 14.7-205.1 [facility] Comment on above: Order Comment: Speci men Type: BLOOD SPECIMENOrdering Facility: [facility] Address: [address] [place] [address] Performed By: #### 5 0190-8, 2275-4 ####[facility] LABCLIA [id number] [place] [address] [place] Iron and Iron binding capaci panelon 04-22-2025 Iron [Mass/Vol] 88 ug/dL Normal 41-186 [facility] Comment on above: Order Comment: Speci men Type: BLOOD SPECIMENOrdering Facility: [facility] Address: [address] [place] [address] Performed By: #### 5 0190-8, 2275-4 ####[facility] LABCLIA [id number] [place] [address] [place] Iron binding capacity [Mass/Vol] 407 ug/dL High 232-386 [facility] Comment on above: Order Comment: Speci men Type: BLOOD SPECIMENOrdering Facility: [facility] Address: [address] [place] [address] Performed By: #### 5 0190-8, 2275- ####[facility] LABCLIA [id number] [place] [address] [place] Iron/TIBC [Molar ratio] 21.6 % Normal 15.0-57.[address] [facility] Comment on above: Order Comment: Speci men Type: BLOOD SPECIMENOrdering Facility: [facility] Address: [address] [place] [address] Performed By: #### 5 0190-8, 2276-4 ####[facility] LABCLIA [id number] [address] STATES OF [facility] Pathology biopsy report Jacob (Tiss)Ordered By: Angela Ashraf on 04-22-2025 Case Report Surgical Pathology Report Case: [id number] Authorizing Provider: Tim Yip MD Collected: 04/21/2025 03:27 PM Ordering Location: OB/Gynecology Received: 04/21/2025 04:21 PM Pathologist: Angela Ashraf MD Specimen: Endometrium, Biopsy [facility] Work Phone: Clinical History [id number] b XGvDaLjIzArDvXsKqt7DL FzjxA1Ffw3EUBtDCopjL9 lZRPfXVkpC2ibvtUzgNOz GTFgIRa9nN0hkQupnY6fL uVyFyJuVJDcVQ2xcrSxRO wbUYJ9aAXfGNYgH4TvEVJ iJ1jwsKJwTZNpbnI4 [facility] Work Phone: Disclaimer x6kzbTZpIPRwz4tkJJVv b GFuZzEwMzNcZnRuYmpcdW MxIHtccnRmMVxlcGljMTE oHPIhl3rmq5wcjUKqHBEx p1vdw5XpoSSudWQjUAehg LVxrpIoxt34dGX4gS42GJ 5yVIHqSmU0AUAiztV9Utj 3CFMgFEKtaIOlM679u5uv r9fsreOsnXY8UWArKMBcA 7EcLX6pWEKiuPVjP91sqT IlUNM2WMQzGQKmmMWuKNV vKCC1GNNqdKUoS7peTYDg UR1xkpkeWTicTJyzYZDxw CQ5QNZnlAXwB4LgRDRvKS bbBDRvgeq4TbFpFa0prOS yhHxiYQifX7eerL9rEqY1 KPzfQ8vkeF0dPJj5NElcV QOcyXC0rxX4WFXsbGJmL1 ZgkR4mNYLiAC8utjo1t0h pGKK6UXwaRCMtZeE1wiS2 NDBccGFyZFxwbGFpblxiX KUzAVCbH5WoNAwmRz7dJC DcnhdcKAY7EZoyoZWhMSL sg1ZqVMrBDAnlMUwzD8so pH0wtgxmhWWlVGSbTAFeC KBKWXKcu6BkBA9cNPYitU AaMQF4CLTxz4HgL7Dgd5B uaF2igE6jjWtzvV6hbGWm oXCgyJrtmG9bjS5qKmh5d 1Chl6KsfmZtQXHwBEZffK NhtV0rDD7mLkYbib6czOC 0WKx0XyYpVTx0SGEvv32m gZZepRKalZW3KLKzKTLfR GRldGVybWluZWQgYnkgdG viOZKhzgVlkq8kdhzmhKQ ta2NllB9unOI1vKZexM6j J6kiztNeWD3eXVTnzV2vH ydzIFJvYmVydCBKLiBUb2 4tzNGpJCCzmCcrgS8nuBB kozHwRUKyc2OzsT5cdESX KEUmV1vqKTUKGDScirLgV P73HIxGXGkgOBYcqAG8sf GYp2KloBIoeSagKHqvz46 yW2GcOLOedRSCi5YobGDk eTgwVwkovymyLMARUEL7l 31cVK2ywGb4FMqlCO8nnw K1JEnho2XudASgZTJMdyW bXB4vAzb0VBRyHUSanLIx kRTQGF10QENvRJ6eihAzt zAMMIKzzYzgTe5nqQpgHP 9bxFe0JZtgHB5xHJKgtA6 kNPput6OmtQWuIPGubgHn TP0wbb2lxsDdp09ndFO8E C39KRdewEtnD7rMCQRxDG J1fWFysKIxdHIgEG8dWQE wnfBml6PiZC0fLNFdJINj QDUxj9DtXU2leQGdp4Sud ZV4TYOdYMUzFTGsBTPrIV Awz8EkQMNrjl93BPMyWra apSstMTASAN9iHlLnGYxD GHrgECGuH9ZvVACmBZM0a mFsbrLLYWrIGOZuXMA5XV zeTjnqDAB6scYaYTWth1S jTVplN6pcJ50xmZfzqSw5 dFR3ZBY6vN9mRuTEcXLoM LJ9YPL6hiYqolCnlBNpLZ Hea1WkC5cyhzfdMUuasII pjA8vSRFuMSRhYYDnAVPg y8IyXGVym2HlLyUxpvArQ TIlLNRrRJBbuH64KIS8oG zdyMgejpKlYH3dYMLgxxW bADIgCORmwP4sNH1vmKGn tsZsBA4vAH8lN7H9tUDtD SJzagUez9xdXZE5MMepGL FwcHJvcHJpYXRlbHkuXHB hcn19 [facility] Work Phone: FINAL DIAGNOSIS i4rhoBKkNXQwvEAcOQNd N jquezQqQIOavJIpR1Ffss gsFImcMB7zMP2gyDjmwNU zgZIhKQUjCdXsa7roh250 zRBbp6tkGFDPwroyiMs6u DdfJ90vj4G6VkjpT78wjT WfNUW1CYBiEOSodQGhRRF mNRK9SIYyuPLsQ4dpVEOe XL1gkmfbMThlFMweZAEsi BC3CYPrhTMfN7DzWSNzVZ asMWEahfg5PkLpGa5msDD yeTcyMFxwYXJkXHBsYWlu CHOzDdFeHW6ff01kmFKrq V9hMSGew4LorRmzACRdSV 9cfO6qxoHtaRHfrJE7ugR 7mJVfTHZeSS34NGE7aXHx GuoafXDxRUCiKVspQW83x yRmHfMcqmMvwRh1EVQhla HpuQG1muk9mTRlcpYbHH6 xi8OcuvEzmN8bcGPmoP== [facility] Work Phone: Gross Description i9oxpBVtNZPkrYVFGYNi M GXdFK2snWwvsIt6mRnxLJ GpjgH6mMAaSIsve6bdYPI 2c3fumqYJPzooLWEzXP1p TVpdIUMrNA0qVeRzXCJtM mYxXHBhcGVydzEyMjQwXH ZecCDwhLU7MZEtJL9iodm qPNdpWXqlJPKxpzJ4FMXj xELaJ9IjWKOyII5toqmlQ BU5VLVYBpbyKa2vvSSbnE tcZjFcZmNoYXJzZXQwXGZ zk8yfebMHuqieaJw5uQ4E IFMhS4GeTR4Yj2ooNGInf BNmPPM1FBcsg7snBNkhFJ X4VFBvXPGmBBHaEB0CThZ wVQe9OxuqIdgfItO0QVp1 JEFFDZToTEO2LCT3QYQtB Es2AUwkMHeffSRwEBOmNW JcBUAwBIxowsP3d2reSUC pnWKyWMN7VEtkx8gwHZmy YDB7ZKCgWxTaJWBhYU4PO pGxLEn5StgwFqliVnL3IQ j2WYDDNkEcTmUaQsQfMrC gCGccHSt6SMf9KWtDQxZu TZurSoe8QoG6DMC9IMS8H yBcXHQgMiBcXHNzIDMgXF hspLZsOB4qsJftXIRxGY1 KMVOqKEiwVJEjFkPrPC7m IZ6cg30feYIrpG3zZWIuo 3BzeVxsdHJjaFxmczIyXH KbksDANuudCLUdZL8SWLY jNLenJMv0txLwFKAvLaHy ECEhY90rr5YSi8ZqIV8NN Ba0ikKwgqIGYcfxksDuXJ NcL4XbhiEzFOktYBDdjr2 boWfmBYVjTDQebLs0fHOv CFD5XI8du3avwKRnxN5jr XZlMSRka8jjSUKaw4W2VR UdHBBjMXF2DSLhX26wvdD eRC9cUVSrp5R9KBEyJN3o uFJoOCyqnDgvsJYhqX6tp RJxXQ7rTWcpwTL7qK3pxV JuzMB1JINfYGpeOMlbwqA jSJMvvpaumF2aYE07TMcb ZP17BVobEK1zZONgNzBKq 0AnmQz2TOX7Lm3kiPOdRX DdlePnhhRcX0Gvo6T2qFX wIIimPDSlVUjvyUHcCV5K UYJdGZU3JGL5ULYqLEE5Q Fa6SnnlVY5mfGGvIM5SYT BhciANClxzYTMwXGVwaWN Bg0MvKHANFeotv6PwHFI9 QY4ebcG4lD8lKDGcpxErm s4bZRWklTNSfKC5UQfduq VnG6lzrtpcZKK3MFGsHKA 7B7yaYPRKrcCbTZBJqWY8 BZyhhaVeCU0FNMR8AXv2U SysOSGrN12wu9VOo1Krg8 dxdEfrc1YjfCHhPJ63KOX lxZQrKMB1GQ5ocWqxAUOf DQpccGFyZCANClxwbGFpb iANCn0= [facility] Work Phone: Performing Lab n8wlmOMcAUOrdBHzTSZo M whsypLfTNTakWUtV6Ajdv jrLKzeEX3eFR4mbZfrbOX pfDXmLZMpKeXfr0hoo680 uDScg6rjAMIVghzfwQj1w BtwA24ox6T1YddhV38fwW OtHTL6VKYtCSGpsCPeQWJ oLCP2DQZvjYIwI1poQEMs OX5zhlkaOWfeZIlfHQEqy UU9UKJxhZJwH4ZnMBZuBU xwBGLmjwe6EqJpDb7ewBB agKfwAZtlW1knyA5jAoH5 FTaaO0auhA7rEPw6NQjlP ZFcpRP4rwF0QZWpeNBkU1 YziH3cTWQuQJ2ktrh5v6i nUHT3TKjmTXTgAnZ9ofI3 NDBccGFyZFxwbGFpblxmc vBtQHNjVInrh7C5kAJgqL 81BTLhpjS9RPCpy22bwSH eEf9ieXFuCAG6GvBTxIV6 WQtujqPwG1gpjjkwEK0rt O1aV6WrjNXhZGpyi5CpqU ApEWznYr1cDAUseegaNPl 9PSMcWHYexGvkMKS3QZ88 ZSwgRGVzayBMMjEsIENsZ DCzsYSmUZURYJG7GXM3VE YlAWSWFHEjDDJ7CJV6KBE wOTRccGFyIFxwYXIgTGFi g9UkoX9kmYDCiUZkB9Mdx beaM6FfbOVyGEuzpjViH0 tzLCBNRFxwYXJ9 [facility] Work Phone: [facility] Work Phone: CNOVon 04-21-2025 CNOV Office Visit (OBGYWM ) MICHAEL CASTRO ([id number]) 1985 F Date Time Provider Department 04/21/25 2:50 PM TIM YIP OBGYWCandace During your visit today, we recorded the following information about you: Blood pressure Weight Height Last Period 134/90 104.3 kg 1.575 m 02/10/25 Tim Yip MD 04/26/2025 12:53 PM Signed Pre-Op History and Physical HPI: The patient is a 39 year old female presenting for pre-operative visit. She is scheduled for TLH, bilateral salpingectomy with left oophorectomy, for menorrhagia, fe def anemia, subserous fibroids, dyspareunia on 05/12/25. Procedure discussed along with risks, benefits and complications. Other alternatives discussed for management. Consent form signed? Yes. PAST MEDICAL HISTORY Diagnosis Date Acute pain of both hips 03/01/2022 Cymbalta has helped. Anxiety with depression 06/25/2021 Arthritis of right hip 12/30/2024 X-ray 12/2024: mild Elevated hemoglobin A1c 07/26/2021 GERD without esophagitis 06/25/2021 Hip pain 07/11/2014 History of 2019 novel coronavirus disease (COVID-19) 11/01/2020 10/27/2020 Inflammatory polyarthropathy (HCC) 02/10/[address] Sandoval Iron deficiency anemia 10/24/2022 Low iron 01/23/2021 Muscle spasm 05/19/2013 MVP (mitral valve prolapse) 02/10/2014 On 2 D echo 01/2014 Pain in joint, ankle and foot 02/19/2012 Pseudotumor cerebri Right hip pain 06/25/2021 Saw Ortho (Dr. Brownlee) Told bone on bone. Routine gynecological examination Dr Doty Valvular heart disease 02/10/2014 2D echo 01/2014: 1+ MVI and TI Vitamin D deficiency 02/10/2014 PAST SURGICAL HISTORY Procedure Laterality Date 2D ECHO (EXEP) 3'17'2014 EF=60%, mild MVP, +1 MVI and TI DELIVERY ONLY , low cervical DELIVERY ONLY 07/07/2017 LIGATE FALLOPIAN TUBE 2017 at [facility] PAST SURGICAL HISTORY OF 08/2000 TENDON REPAIR RIGHT WRIST STRESS ECHO 02/13/2021 normal TONSILLECTOMY PRIMARY/SECONDARY Tonsillectomy Current Outpatient Medications Medication Sig Dispense Refill norethindrone (AYGESTIN) 5 mg tablet TAKE 1 TABLET BY MOUTH EVERY DAY 90 tablet 3 zonisamide (ZONEGRAN) 50 mg capsule Take 1 capsule by mouth once daily. 90 capsule 0 acetaminophen (TYLENOL ARTHRITIS ORAL) Take 2 tablets by mouth two times a day as needed. meloxicam (MOBIC) 15 mg tablet Take 1 tablet by mouth once daily. 30 tablet 6 No current facility-administered medications for this visit. ALLERGIES: Diamox [Acetazolamide] PERSONAL HISTORY: Social History Tobacco Use Smoking status: Never Smokeless tobacco: Never Vaping Use Vaping status: Never Used Substance Use Topics Alcohol use: Yes Comment: Occasionally, not while Drug use: No FAMILY HISTORY: FAMILY HISTORY Problem Relation Age of Onset Seizures Mother tonic-clonic, quiescent off medication No Known Problems Father No Known Problems Sister No Known Problems Sister No Known Problems Sister No Known Problems Brother No Known Problems Brother No Known Problems Brother COPD Maternal Grandmother Diabetes Maternal Grandfather Hypertension Maternal Grandfather Heart Maternal Grandfather had a difibulator Hypertension Paternal Grandmother other (Other) Paternal Grandmother 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 GENERAL: The patient is well nourished, well hydrated in no acute distress. , The patient is oriented to time, place, and person. NECK: Supple. No lynphadenopathy, normal thyroid, no thyromegaly. LUNGS: Clear to auscultation bilaterally. no wheezes, rhonchi or rales HEART: Regular rate and rhythm, Normal heart sounds, and No murmurs or gallops Pelvic US: 01/21/25 Uterus Uterus: Visualized Uterus position: anteverted cervix, axial fundus Description of uterine malformations: none Myometrium: heterogeneous Endometrium: homogenous, borders of the endo not well defined Cervix details: cystic lesions identified suggesting superficial Nabothian cysts Uterus length 107 mm Uterus width 58 mm Uterus height 45 mm Uterus Vol 147.0 cm? Endometrial thickness, total 4.0 mm Fibroids: Fibroids identified Uterine fibroid D1 11 mm Uterine fibroid D2 11 mm Uterine fibroid D3 13 mm Uterine fibroid mean 11.7 mm Uterine fibroid vol 0.824 cm? Uterin (more content not included)... Normal [facility] HISTORY PHYSICALon HISTORY PHYSICAL HNO ID: [id number] Author: TIM YIP MD Service: ? Author Type: Physician Type: H&P Filed: 04/26/2025 12:53 Note Text: Pre-Op History and Physical HPI: The patient is a 39 year old female presenting for pre-operative visit. She is scheduled for TLH, bilateral salpingectomy with left oophorectomy, for menorrhagia, fe def anemia, subserous fibroids, dyspareunia on 05/12/25. Procedure discussed along with risks, benefits and complications. Other alternatives discussed for management. Consent form signed? Yes. PAST MEDICAL HISTORY Diagnosis Date Acute pain of both hips 03/01/2022 Cymbalta has helped. Anxiety with depression 06/25/2021 Arthritis of right hip 12/30/2024 X-ray 12/2024: mild Elevated hemoglobin A1c 07/26/2021 GERD without esophagitis 06/25/2021 Hip pain 07/11/2014 History of 2019 novel coronavirus disease (COVID-19) 11/01/2020 10/27/2020 Inflammatory polyarthropathy (HCC) 02/10/[address] Sandoval Iron deficiency anemia 10/24/2022 Low iron 01/23/2021 Muscle spasm 05/19/2013 MVP (mitral valve prolapse) 02/10/2014 On 2 D echo 01/2014 Pain in joint, ankle and foot 02/19/2012 Pseudotumor cerebri Right hip pain 06/25/2021 Saw Ortho (Dr. Brownlee) Told bone on bone. Routine gynecological examination Dr Doty Valvular heart disease 02/10/2014 2D echo 01/2014: 1+ MVI and TI Vitamin D deficiency 02/10/2014 PAST SURGICAL HISTORY Procedure Laterality Date 2D ECHO (EXEP) ' EF=60%, mild MVP, +1 MVI and TI DELIVERY ONLY , low cervical DELIVERY ONLY 07/07/2017 LIGATE FALLOPIAN TUBE [facility] PAST SURGICAL HISTORY OF 08/2000 TENDON REPAIR RIGHT WRIST STRESS ECHO 02/13/2021 normal TONSILLECTOMY PRIMARY/SECONDARY Tonsillectomy Current Outpatient Medications Medication Sig Dispense Refill norethindrone (AYGESTIN) 5 mg tablet TAKE 1 TABLET BY MOUTH EVERY DAY 90 tablet 3 zonisamide (ZONEGRAN) 50 mg capsule Take 1 capsule by mouth once daily. 90 capsule 0 acetaminophen (TYLENOL ARTHRITIS ORAL) Take 2 tablets by mouth two times a day as needed. meloxicam (MOBIC) 15 mg tablet Take 1 tablet by mouth once daily. 30 tablet 6 No current facility-administered medications for this visit. ALLERGIES: Diamox [Acetazolamide] PERSONAL HISTORY: Social History Tobacco Use Smoking status: Never Smokeless tobacco: Never Vaping Use Vaping status: Never Used Substance Use Topics Alcohol use: Yes Comment: Occasionally, not while Drug use: No FAMILY HISTORY: FAMILY HISTORY Problem Relation Age of Onset Seizures Mother tonic-clonic, quiescent off medication No Known Problems Father No Known Problems Sister No Known Problems Sister No Known Problems Sister No Known Problems Brother No Known Problems Brother No Known Problems Brother COPD Maternal Grandmother Diabetes Maternal Grandfather Hypertension Maternal Grandfather Heart Maternal Grandfather had a difibulator Hypertension Paternal Grandmother other (Other) Paternal Grandmother 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 GENERAL: The patient is well nourished, well hydrated in no acute distress. , The patient is oriented to time, place, and person. NECK: Supple. No lynphadenopathy, normal thyroid, no thyromegaly. LUNGS: Clear to auscultation bilaterally. no wheezes, rhonchi or rales HEART: Regular rate and rhythm, Normal heart sounds, and No murmurs or gallops Pelvic US: 01/21/25 Uterus Uterus: Visualized Uterus position: anteverted cervix, axial fundus Description of uterine malformations: none Myometrium: heterogeneous Endometrium: homogenous, borders of the endo not well defined Cervix details: cystic lesions identified suggesting superficial Nabothian cysts Uterus length 107 mm Uterus width 58 mm Uterus height 45 mm Uterus Vol 147.0 cm? Endometrial thickness, total 4.0 mm Fibroids: Fibroids identified Uterine fibroid D1 11 mm Uterine fibroid D2 11 mm Uterine fibroid D3 13 mm Uterine fibroid mean 11.7 mm Uterine fibroid vol 0.824 cm? Uterine fibroids findings: Left lateral posterior wall. Subserous Right Ovary Rt ovary: Visualized Rt ovary morphology: premenopausal normal follicular Rt ovary D1 33 mm Rt ovary D2 17 mm Rt ovary D3 14 mm Rt ovary Vol 4.0 cm? Left Ovary Lt ovary: Visualized Lt ovary morphology (more content not included)... Normal [facility] Pathology biopsy report Jacob (Tiss)on 04-21-2025 AP DISCLAIMER Normal [facility] Comment on above: Order Comment: Speci men Type: TISSUE SPECIMENOrdering Facility: [facility] Address: [address] [place] [address] Result Comment: Rach glez Developed Test (LDT) Disclaimer: Performance characteristics of immunohistochemical, immunofluorescent, and chromogenic in-situ hybridization tests have been determined by the performing laboratory within [facility]'s [facility] Pathology and Laboratory Medicine Department ([facility], [facility], [facility], [facility], [facility], [facility], or [facility]) in a manner consistent with CLIA requirements. One or more of these tests may not have been cleared or approved by the FDA. [facility] is regulated under CLIA as qualified to perform high-complexity testing. These tests are used for clinical purposes. These should not be regarded as investigational or for research. Positive and negative controls stain appropriately. Performed By: #### 6 6121-5 ####[facility] LABCLIA [id number] [place] [address] [place] CASE REPORT Normal [facility] Comment on above: Order Comment: Speci men Type: TISSUE SPECIMENOrdering Facility: [facility] Address: [address] [place] [address] Result Comment: [facility] Pathology Report Case: [id number] Authorizing Provider: Tim Yip MD Collected: 04/21/2025 03:27 PM Ordering Location: OB/Gynecology Received: 04/21/2025 04:21 PM Pathologist: Angela Ashraf MD Specimen: Endometrium, Biopsy Performed By: #### 6 6121-5 ####[facility] LABIA [id number] [address] STATES OF [place] CLINICAL HISTORY menorrhagia with regular cycles Normal [facility] Comment on above: Order Comment: Speci men Type: TISSUE SPECIMENOrdering Facility: [facility] Address: [address] [place] [address] Performed By: #### 6 6121-5 ####[facility] LABIA [id number] [address] OF [facility] FINAL DIAGNOSIS Normal [facility] Comment on above: Order Comment: Speci men Type: TISSUE SPECIMENOrdering Facility: [facility] Address: [address] [place] [address] Result Comment: Endo metrium, biopsy: Predominantly mucus with scant superficial fragments of inactive endometrium and endocervix. at 1546 EDT Performed By: #### 6 6121-5 ####[facility] LABCLIA [id number] [place] [id number] [place] FINAL PERFORMING LAB Normal [facility] Comment on above: Order Comment: Speci men Type: TISSUE SPECIMENOrdering Facility: [facility] Address: [address] [place] [address] Result Comment: Diag nostic interpretation performed at: [facility], [address] [place] [address], Desk [place] [address] CLIA# [id number] Research Software Engineer: James Caicedo MD Performed By: #### 6 6121-5 ####[facility] LABCLIA [id number] [place] [address] [place] GROSS DESCRIPTION Normal [facility] Comment on above: Order Comment: Speci men Type: TISSUE SPECIMENOrdering Facility: [facility] Address: [address] [place] [address] Result Comment: A. E ndometrium, Biopsy Received in formalin are multiple morales-white to morales-brown, soft feathery segments of tissue admixed with mucinous and gelatinous material aggregating to 1.9 x 1.8 x 0.2 cm. Totally submitted in one cassette. DB April 21, 2025 9:38 PM Gross examination performed at [facility], [address] [place] [address] Performed By: #### 6 6121-5 ####[facility] LABCLIA [id number] [address] OF [place] CNOVon 04-07-2025 CNOV Office Visit (NEV) MICHAEL CASTRO ([id number]) 1985 F Date Time Provider Department 04/07/25 8:00 AM [facility] During your visit today, we recorded the following information about you: Pulse Blood pressure Weight Height 71/minute 131/82 104.8 kg 1.575 m Brooke Duncan MD 04/24/2025 11:21 AM Signed [facility] Initial Visit Michael Castro CC#: [id number] Date of Service: 04/07/2025 Primary Care Provider: Sanket Cruz MD The patient was referred by Tanya Vernon AP* for opinion regarding IIH with venous stenosis. I will provide a written report of my findings to the referring through letter, e communication, or epic. OUTPATIENT CONSULTATION Reason for Visit: Maya is a 39-year-old female with a history of idiopathic intracranial hypertension (IIH), presenting for evaluation of chronic headaches, pulsatile tinnitus, and visual disturbances. Handedness: Right Hypertension N Coronary Artery Disease N Diabetes N Obesity NA Dyslipidemia NA Tobacco Use (Please Update Smoking History) NA Stroke NA Intracranial Aneurysm NA Onset of symptoms: - Date: May 2015 - The patient initially experienced right > left retro-orbital and bitemporal headaches, pulsatile tinnitus with straining and when supine, and episodic left facial spasms. Episodes of facial drooping and paralysis lasted 30 seconds to 1 minute, accompanied by blurry vision and vertigo. - Facial spasm resolved by early 2015. She had two episodes of disabling vertigo since 2014. Otherwise not an on-going symptom. - In late 2014, an MRI of the brain identified findings consistent with idiopathic intracranial hypertension. She was on Diamox at the time. Routinely followed up by ophthalmology for visual field assessments. She had difficulty tolerating Diamox due to numbness and tingling; discontinued by her PCP in 2014. - By early 2015, she had persistent pulsatile tinnitus with interval resolution of facial twitching and numbness. She was seen by ophthalmology in summer 2015 and did not have papilledema at that time. During her in 2016, her headaches largely resolved, and her symptoms improved. She had an epidural which was complicated by a spinal leak but an EBP was not offered due to concerns for increased ICP after patch. - Her headaches resumed and did not resolve since then. However she does experience relief in severe headaches for about 6 months after each LP. - In 2019, she had a COVID infection, after which her headaches worsened. She was placed on topiramate but discontinued it due to adverse effects. She was then started on zonisamide 50 mg daily, titrated up to 100 mg daily, which she could not tolerate, leading to a reduction back to 50 mg daily. - By January 2025, she experienced worsening headaches through 2023 to 2024. She continues to have daily headaches associated with photophobia, dizziness, and visual burring about twice weekly, and bright visual scotomata described as starbursts. - Pulsatile tinnitus is primarily on the left, worsening with supine posture, lifting or straining. - She has two daughters, aged 16 (Vidhya) and 7 years. Vidhya is disabled and weighs 90 lb, so Maya does have to lift her as part of her care. She and her work different shifts. When alone, her friend Fiorella comes by to help her. 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 Needs hip injections which provide relief for 6 weeks to 2 months. Takes Meloxicam. - Zonegran does not touch her headaches. Caffeine does. She takes up to 8 shots of espresso / day. Down to 1 after LP. Weight history: Current BMI: 42.07 kg/m2 Notable vascular risk factors: impaired glucose tolerance Lumbar puncture history: Date: 10/20/2015 Opening pressure: 24.5 cmH2O Closing pressure: 16 cmH2O CSF normal: Yes Complicated by CSF leak Date: 05/30/22 Opening pressure: 29 cmH2O Closing pressure: <15 cmH2O CSF normal: Yes Relief in symptoms post LP Another one requested by ELVIRA Vernon (Headache); pending Diagnosis of Idiopathic Intracranial Hypertension (IIH) - Modified Dandy criteria Symptoms/ signs of intracranial hypertension (headaches, nausea/ vomiting, transient visual obscuration, papilledema): Yes No localizing neurological signs except for abducens palsy, unilateral or bilateral: Yes Elevated ICP (CSF opening pressure >25 cmH2O) on lumbar puncture with a normal CSF composition: Yes Neuroimaging without alternate etiology for intracranial hypertension: Yes Patient awake and alert: Yes No other explanation for increased intracranial hypertension: Yes Current symptoms: Cerebral Venous Disorder Severity Scale Symptoms Scores Headache Head / eye pressure, base of head pain 3 - Severe or debilitating sympto (more content not included)... Normal [facility]28-[facility] MICHAEL CASTRO ([id number]) 1985 F Date Time Provider Department 03/28/25 [facility] today, we recorded the following information about you: Yadi Johnson 03/28/2025 6:20 PM Signed ENDOVASCULAR INTAKE Patient name: Michael Castro When was triage completed? 03.28.25 What diagnosis are you looking to be seen for within our center? 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 (referring provider) Tanya Vernon, JOSUÉ.TYPESETTERS PRINTER Has your referring provider recommended a specific provider in our department? no Is this a second opinion? Have you been recommended for surgery or procedure for this condition? No + yes a LP If yes, have you scheduled this procedure at another facility? No as order hasn't been placed yet If yes, when is the procedure scheduled? no Where have you had any imaging for this diagnosis in the past year? These include images such as ultrasounds, MRIs, CTs, or angiograms of the head, brain, neck, carotids, or spine. [facility] Have you had any surgeries or procedures for this condition? yes If yes, where was it done and when? Who performed the surgery or procedure? 2021 possibly LP at [facility] Does any of the following pertain to you? Family history of brain aneurysm? no Polycystic kidney disease or other genetic kidney disease? Not applicable if chronic kidney disease. no Connective tissue disease such as fibromuscular dysplasia or Dylon-Danlos Syndrome? no Do you prefer in-person or virtual appointment? Out of state residents must be in [place] at the time of their virtual visit. In person Specific day of the week or time of day? Mondays preferred but will make anything work Do you prefer to be notified of your appointment by phone or Boxxethart message? Phone + ok to LVM Thank you for speaking with me today. Your information will now be forwarded to our [facility] practice provider team to review and provide scheduling recommendations. Please allow 3 business days to hear back from us. If you do not, feel free to call back [phone] for an update. Yadi Johnson 03/28/2025 6:20 PM Signed OSH imaging/records received from [facility]: March 28, 2025 -Records AND Imaging available in Chart Allergies As of Date: 03/28/2025 Noted Allergy Reaction DIAMOX (ACETAZOLAMIDE) 05/16/2016 14 - Other: See Comments Comments: Numbness in hands and feet Date Reviewed: 03/24/2025 Reviewed by: Tanya Vernon APRN.TYPESETTERS PRINTER - Fully Assessed Reason for Visit: Future Appointment [256] Cmt: New Patient [place] Any Prescriptions as of 03/29/2025 - norethindrone (AYGESTIN) 5 mg tablet TAKE 1 TABLET BY MOUTH EVERY DAY - zonisamide (ZONEGRAN) 50 mg capsule Take 1 capsule by mouth once daily. - acetaminophen (TYLENOL ARTHRITIS ORAL) Take 2 tablets by mouth two times a day as needed. - meloxicam (MOBIC) 15 mg tablet Take 1 tablet by mouth once daily. Problem List As Of Date 03/28/2025 Noted Resolved SUPERVIS NORMAL 1ST PREG [Z34.00] 04/08/2008 12/28/2008 THRT [facility]LEY LABOR-ANTEPART [O47.00] 10/04/2008 12/28/2008 Pain in joint, ankle and foot [M25.579] 02/19/2012 Deep dyspareunia [N94.12] 04/05/2013 Muscle spasm [M62.838] 05/19/2013 Routine gynecological examination [Z01.419] 10/26/2014 Inflammatory polyarthropathy (HCC) [M06.4] 02/10/2014 Vitamin D deficiency [E55.9] 02/10/2014 MVP (mitral valve prolapse) [I34.1] 02/10/2014 Valvular heart disease [I38] 02/10/2014 Well adult exam [Z00.00] 08/04/2014 NSAID long-term use [Z79.1] 08/04/2014 Morbid obesity (HCC) [E66.01] 08/04/2014 Pseudotumor cerebri [G93.2] 11/14/2015 Menorrhagia with regular cycle [N92.0] 05/16/2016 04/28/2017 Encounter for screening for cardiovascular diso*05/16/2016 History of delivery, currently pregnan*12/12/2016 08/12/2017 History of labor [Z87.51] 12/12/2016 08/12/2017 Family history of genetic disease [Z84.89] 12/12/2016 Nausea and vomiting during [O21.9] 12/12/2016 08/12/2017 History of mitral valve disorder [Z86.79] 12/12/2016 Patient requested diagnostic testing [Z01.89] 12/12/2016 01/14/2017 Request for sterilization [Z30.2] 05/09/2017 08/12/2017 History of 2019 novel coronavirus disease (COVI*11/01/2020 Low iron [E61.1] 01/23/2021 Right hip pain [M25.551] 06/25/2021 Anxiety with depression [F41.8] 06/25/2021 GERD without esophagitis [K21.9] 06/25/2021 Elevated hemoglobin A1c [R73.09] 07/26/2021 Acute pain of both hips [M25.551, M25.552] 03/01/2022 Medication managem (more content not included)... Normal [facility] MRA BRAIN WO IVCONon 025 MRA BRAIN WO IVCON * * *Final Report* * * DATE OF EXAM: Mar 18 2025 2:14PM LDM 0272 - MRA BRAIN WO IVCON / PROCEDURE REASON: IIH (idiopathic intracranial hypertension) * * * * Physician Interpretation * * * * EXAMINATION: MRI BRAIN WO/W IVCON, MRV BRAIN WO/W IVCON, MRA BRAIN WO IVCON CLINICAL HISTORY: Chronic headaches, unilateral tinnitus, and idiopathic intracranial hypertension. Left facial paralysis. TECHNIQUE: Intracranial mass protocol with and without gadolinium with supplemental fat-suppressed 2-D axial T2 and high-resolution 3-D T2 images of the posterior fossa. Intracranial 3D mohj-sz-hezmzf MRA, 2-D kuuj-rs-dlrhoc intracranial MRV and gadolinium enhanced sagittal gradient echo volume acquisition of the intracranial venous circulation with post-processing performed at the modality and 2D multiplanar and 3D maximum intensity projections were created, reviewed and archived. MQ: MRAB_4 Contrast: 20 (accession [id number]), 20ml (accession [id number]), 20 (accession [id number]) mL Dotarem IV COMPARISON: 05/13/2022. RESULT: BRAIN: Acute Change: There is no evidence of an acute intracranial process. Hemorrhage: No evidence of prior parenchymal hemorrhage on the gradient echo images. Mass Lesion/ Mass Effect: There is no evidence of an intracranial mass or extra-axial fluid collection. No abnormal parenchymal or leptomeningeal enhancement is noted otherwise following gadolinium administration. Chronic Change: The white matter remains within normal limits of signal intensity for age. Parenchyma: No significant volume loss for age. The brain parenchyma is otherwise within normal limits of signal intensity and morphology. Ventricles: Normal caliber and morphology. Skull Base: Again noted is a partially empty sella and distention of the sheath of each optic nerve as reported in setting of idiopathic intracranial hypertension. The inner ear structures are within normal limits of morphology on the high-resolution 3-D T2 images. No evidence of a soft tissue mass in either IAC region. No abnormal enhancement is noted otherwise along the course of the 7/8 cranial nerve complexes or inner ear complexes. Craniocervical junction is normal. No significant marrow replacement process in the skull base. Vasculature: There appears to be short segment severe luminal narrowing in the distal left transverse sinus and long segment severe luminal narrowing in the mid and distal right transverse sinus on the gadolinium-enhanced volume acquisition. The ventral superior the superior sagittal sinus also appears to be diminutive if patent. Other: A moderate amount of retained fluid is noted in left mastoid air cells. INTRACRANIAL MRA: The distal vertebral arteries are patent and essentially equivalent in caliber. The distal vertebral and basilar arteries are within normal limits of caliber and configuration. The PICAs, AICAs, SCA's and outreach director are patent without evidence of focal significant stenosis, abrupt vessel occlusion, aneurysm or vascular malformation in the posterior intracranial circulation. Each PCOM is patent but relatively small in caliber. The distal ICAs are patent and within normal limits of caliber and configuration. The proximal ACAs and MCAs are patent. Left A1 segment is mildly hypoplastic. The proximal ACAs and MCAs are within normal limits of caliber and configuration. No evidence of focal significant stenosis, abrupt vessel occlusion, aneurysm or vascular malformation in the anterior intracranial circulation. INTRACRANIAL MRV: The ventral third of the superior sagittal sinus is again noted to be diminutive in caliber while there is normal flow-related enhancement in the dorsal two thirds of the superior sagittal sinus. There is also flow-related enhancement in the straight sinus and both transverse and both sigmoid sinuses but there appears to be persistent short segment moderate luminal narrowing in the distal left transverse and proximal left sigmoid sinuses and long segment severe luminal narrowing in the distal right transverse and proximal right sigmoid sinuses. On the gadolinium-enhanced acquisition, the ventral third of the superior sagittal sinus is diminutive in caliber and apparently supplemented by cortical veins but there is normal uniform enhancement of the dorsal two thirds of the superior sagittal sinus and straight sinus. There appears to be short segment severe luminal narrowing in the distal left transverse and proximal left sigmoid sinuses and long segment severe luminal narrowing in the distal right transverse and proximal right sigmoid sinuses. There is uniform enhancement of the vein of Edilberto, internal cerebral veins, each basal vein of Rober, and the proximal internal jugular veins. IMPRESSION: Findings compatible with the clinical history of idiopathic intracranial hypertension without significant change since 2021. Oth (more content not included)... Normal [facility] MRI BRAIN WO/W IVCONon 03-18 MRI BRAIN WO/W IVCON * * *Final Report* * * DATE OF EXAM: Mar 18 2025 2:11PM LD 0295 - MRI BRAIN WO/W IVCON / PROCEDURE REASON: IIH (idiopathic intracranial hypertension) * * * * Physician Interpretation * * * * EXAMINATION: MRI BRAIN WO/W IVCON, MRV BRAIN WO/W IVCON, MRA BRAIN WO IVCON CLINICAL HISTORY: Chronic headaches, unilateral tinnitus, and idiopathic intracranial hypertension. Left facial paralysis. TECHNIQUE: Intracranial mass protocol with and without gadolinium with supplemental fat-suppressed 2-D axial T2 and high-resolution 3-D T2 images of the posterior fossa. Intracranial 3D ygiy-lz-uvgbwb MRA, 2-D khsy-ds-cicqkz intracranial MRV and gadolinium enhanced sagittal gradient echo volume acquisition of the intracranial venous circulation with post-processing performed at the modality and 2D multiplanar and 3D maximum intensity projections were created, reviewed and archived. MQ: MRAB_4 Contrast: 20 (accession [id number]), 20ml (accession [id number]), 20 (accession [id number]) mL Dotarem IV COMPARISON: 05/13/2022. RESULT: BRAIN: Acute Change: There is no evidence of an acute intracranial process. Hemorrhage: No evidence of prior parenchymal hemorrhage on the gradient echo images. Mass Lesion/ Mass Effect: There is no evidence of an intracranial mass or extra-axial fluid collection. No abnormal parenchymal or leptomeningeal enhancement is noted otherwise following gadolinium administration. Chronic Change: The white matter remains within normal limits of signal intensity for age. Parenchyma: No significant volume loss for age. The brain parenchyma is otherwise within normal limits of signal intensity and morphology. Ventricles: Normal caliber and morphology. Skull Base: Again noted is a partially empty sella and distention of the sheath of each optic nerve as reported in setting of idiopathic intracranial hypertension. The inner ear structures are within normal limits of morphology on the high-resolution 3-D T2 images. No evidence of a soft tissue mass in either IAC region. No abnormal enhancement is noted otherwise along the course of the 7/8 cranial nerve complexes or inner ear complexes. Craniocervical junction is normal. No significant marrow replacement process in the skull base. Vasculature: There appears to be short segment severe luminal narrowing in the distal left transverse sinus and long segment severe luminal narrowing in the mid and distal right transverse sinus on the gadolinium-enhanced volume acquisition. The ventral superior the superior sagittal sinus also appears to be diminutive if patent. Other: A moderate amount of retained fluid is noted in left mastoid air cells. INTRACRANIAL MRA: The distal vertebral arteries are patent and essentially equivalent in caliber. The distal vertebral and basilar arteries are within normal limits of caliber and configuration. The PICAs, AICAs, SCA's and outreach director are patent without evidence of focal significant stenosis, abrupt vessel occlusion, aneurysm or vascular malformation in the posterior intracranial circulation. Each PCOM is patent but relatively small in caliber. The distal ICAs are patent and within normal limits of caliber and configuration. The proximal ACAs and MCAs are patent. Left A1 segment is mildly hypoplastic. The proximal ACAs and MCAs are within normal limits of caliber and configuration. No evidence of focal significant stenosis, abrupt vessel occlusion, aneurysm or vascular malformation in the anterior intracranial circulation. INTRACRANIAL MRV: The ventral third of the superior sagittal sinus is again noted to be diminutive in caliber while there is normal flow-related enhancement in the dorsal two thirds of the superior sagittal sinus. There is also flow-related enhancement in the straight sinus and both transverse and both sigmoid sinuses but there appears to be persistent short segment moderate luminal narrowing in the distal left transverse and proximal left sigmoid sinuses and long segment severe luminal narrowing in the distal right transverse and proximal right sigmoid sinuses. On the gadolinium-enhanced acquisition, the ventral third of the superior sagittal sinus is diminutive in caliber and apparently supplemented by cortical veins but there is normal uniform enhancement of the dorsal two thirds of the superior sagittal sinus and straight sinus. There appears to be short segment severe luminal narrowing in the distal left transverse and proximal left sigmoid sinuses and long segment severe luminal narrowing in the distal right transverse and proximal right sigmoid sinuses. There is uniform enhancement of the vein of Edilberto, internal cerebral veins, each basal vein of Robre, and the proximal internal jugular veins. IMPRESSION: Findings compatible with the clinical history of idiopathic intracranial hypertension without significant change since 2021. O (more content not included)... Normal [facility] MRV BRAIN WO/W IVCONon 03-18 MRV BRAIN WO/W IVCON * * *Final Report* * * DATE OF EXAM: Mar 18 2025 2:21PM [facility] 0336 - MRV BRAIN WO/W IVCON / PROCEDURE REASON: IIH (idiopathic intracranial hypertension) * * * * Physician Interpretation * * * * EXAMINATION: MRI BRAIN WO/W IVCON, MRV BRAIN WO/W IVCON, MRA BRAIN WO IVCON CLINICAL HISTORY: Chronic headaches, unilateral tinnitus, and idiopathic intracranial hypertension. Left facial paralysis. TECHNIQUE: Intracranial mass protocol with and without gadolinium with supplemental fat-suppressed 2-D axial T2 and high-resolution 3-D T2 images of the posterior fossa. Intracranial 3D pxph-ke-nyzluj MRA, 2-D gowb-iq-vgdrji intracranial MRV and gadolinium enhanced sagittal gradient echo volume acquisition of the intracranial venous circulation with post-processing performed at the modality and 2D multiplanar and 3D maximum intensity projections were created, reviewed and archived. MQ: MRAB_4 Contrast: 20 (accession [id number]), 20ml (accession [id number]), 20 (accession [id number]) mL Dotarem IV COMPARISON: 05/13/2022. RESULT: BRAIN: Acute Change: There is no evidence of an acute intracranial process. Hemorrhage: No evidence of prior parenchymal hemorrhage on the gradient echo images. Mass Lesion/ Mass Effect: There is no evidence of an intracranial mass or extra-axial fluid collection. No abnormal parenchymal or leptomeningeal enhancement is noted otherwise following gadolinium administration. Chronic Change: The white matter remains within normal limits of signal intensity for age. Parenchyma: No significant volume loss for age. The brain parenchyma is otherwise within normal limits of signal intensity and morphology. Ventricles: Normal caliber and morphology. Skull Base: Again noted is a partially empty sella and distention of the sheath of each optic nerve as reported in setting of idiopathic intracranial hypertension. The inner ear structures are within normal limits of morphology on the high-resolution 3-D T2 images. No evidence of a soft tissue mass in either IAC region. No abnormal enhancement is noted otherwise along the course of the 7/8 cranial nerve complexes or inner ear complexes. Craniocervical junction is normal. No significant marrow replacement process in the skull base. Vasculature: There appears to be short segment severe luminal narrowing in the distal left transverse sinus and long segment severe luminal narrowing in the mid and distal right transverse sinus on the gadolinium-enhanced volume acquisition. The ventral superior the superior sagittal sinus also appears to be diminutive if patent. Other: A moderate amount of retained fluid is noted in left mastoid air cells. INTRACRANIAL MRA: The distal vertebral arteries are patent and essentially equivalent in caliber. The distal vertebral and basilar arteries are within normal limits of caliber and configuration. The PICAs, AICAs, SCA's and outreach director are patent without evidence of focal significant stenosis, abrupt vessel occlusion, aneurysm or vascular malformation in the posterior intracranial circulation. Each PCOM is patent but relatively small in caliber. The distal ICAs are patent and within normal limits of caliber and configuration. The proximal ACAs and MCAs are patent. Left A1 segment is mildly hypoplastic. The proximal ACAs and MCAs are within normal limits of caliber and configuration. No evidence of focal significant stenosis, abrupt vessel occlusion, aneurysm or vascular malformation in the anterior intracranial circulation. INTRACRANIAL MRV: The ventral third of the superior sagittal sinus is again noted to be diminutive in caliber while there is normal flow-related enhancement in the dorsal two thirds of the superior sagittal sinus. There is also flow-related enhancement in the straight sinus and both transverse and both sigmoid sinuses but there appears to be persistent short segment moderate luminal narrowing in the distal left transverse and proximal left sigmoid sinuses and long segment severe luminal narrowing in the distal right transverse and proximal right sigmoid sinuses. On the gadolinium-enhanced acquisition, the ventral third of the superior sagittal sinus is diminutive in caliber and apparently supplemented by cortical veins but there is normal uniform enhancement of the dorsal two thirds of the superior sagittal sinus and straight sinus. There appears to be short segment severe luminal narrowing in the distal left transverse and proximal left sigmoid sinuses and long segment severe luminal narrowing in the distal right transverse and proximal right sigmoid sinuses. There is uniform enhancement of the vein of Edilberto, internal cerebral veins, each basal vein of Rober, and the proximal internal jugular veins. IMPRESSION: Findings compatible with the clinical history of idiopathic intracranial hypertension without significant change since 2021. O (more content not included)... Normal [facility] CNOVon 03-03-2025 CNOV Office Visit (FAMPWS ) NAVEEDMICHAEL YANG ([id number]) 1985 F Date Time Provider Department 03/03/25 2:20 [facility] During your visit today, we recorded the following information about you: Pulse Blood pressure Weight Height 82/minute 118/76 103.3 kg 1.563 m Sanket Cruz MD 03/03/2025 8:52 PM Signed Chief Complaint Patient presents with: Follow Up HPI Michaelmaciej Castro is a 39 year old female who presents here today for follow up. Patient with hx of Iron def anemia and has seen hematology and had iron infusions every other day for two weeks. Has not noted much improvement in her fatigue. However still bleeding heavily and has her Hyst set up for May 12 Has a MRI scheduled on 03/18/2025. Has been having increasing head pressure and pressure behind her eyes. Has been on antibiotics for a double ear infection and does not feel like the meds have helped the right at all. The left feels better. No drainage, chills. Last night felt hot in her face and ears. Office visit 01/31/2025 yearly Recently saw PCP and was referred to ortho. Injection was done last week. Has been dealing with chronic fatigue. Ready to come up with a definitive cause and plans to follow up on the testing. Recent labs +anemia. Recently told to start iron. However she has never been able to tolerate oral iron. Being worked up for frequent heavy menstrual bleeding. Recent US showed fibroids. 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 Has had significant weight loss over the years. . States she has not specifically been trying. Really struggling with her day to day tasks. Some days struggling to care for her child. She also has a follow up with neuro. Reports chronic daily Headaches. Suspects she will end up needed another spinal puncture to release excess fluid. Last one in 2021 Past medical history, appointments, medications, allergies reviewed. Previous Medical History PAST MEDICAL HISTORY Diagnosis Date Acute pain of both hips 03/01/2022 Cymbalta has helped. Anxiety with depression 06/25/2021 Arthritis of right hip 12/30/2024 X-ray 12/2024: mild Elevated hemoglobin A1c 07/26/2021 GERD without esophagitis 06/25/2021 Hip pain 07/11/2014 History of 2019 novel coronavirus disease (COVID-19) 11/01/2020 10/27/2020 Inflammatory polyarthropathy (HCC) 02/10/[address] Sandoval Iron deficiency anemia 10/24/2022 Low iron 01/23/2021 Muscle spasm 05/19/2013 MVP (mitral valve prolapse) 02/10/2014 On 2 D echo 01/2014 Pain in joint, ankle and foot 02/19/2012 Pseudotumor cerebri Right hip pain 06/25/2021 Saw Ortho (Dr. Brownlee) Told bone on bone. Routine gynecological examination Dr Doty Valvular heart disease 02/10/2014 2D echo 01/2014: 1+ MVI and TI Vitamin D deficiency 02/10/2014 Previous Surgical History PAST SURGICAL HISTORY Procedure Laterality Date 2D ECHO (EXEP) EF=60%, mild MVP, +1 MVI and TI DELIVERY ONLY , low cervical DELIVERY ONLY 07/07/2017 LIGATE FALLOPIAN TUBE 2017 at [facility] PAST SURGICAL HISTORY OF 08/2000 TENDON REPAIR RIGHT WRIST STRESS ECHO 02/13/2021 normal TONSILLECTOMY PRIMARY/SECONDARY Tonsillectomy Family History FAMILY HISTORY Problem Relation Age of Onset Seizures Mother tonic-clonic, quiescent off medication No Known Problems Father No Known Problems Sister No Known Problems Sister No Known Problems Sister No Known Problems Brother No Known Problems Brother No Known Problems Brother COPD Maternal Grandmother Diabetes Maternal Grandfather Hypertension Maternal Grandfather Heart Maternal Grandfather had a difibulator Hypertension Paternal Grandmother other (Other) Paternal Grandmother No breast/hand bobbin cleaner cancer Aneurysm Paternal Grandfather other (cask gene mutation) Daughter Coronary Artery Disease No Family History Patient Allergies ALLERGIES Allergen Reactions Diamox [Acetazolami* Other: See Comments Numbness in hands and feet Current Medications Current Outpatient Medications on File Prior to Visit Medication Sig amoxicillin-clavulana te potassium (AUGMENTIN) 875-125 mg per tablet Take 1 tablet by mouth two times a day for 7 days. zonisamide (ZONEGRAN) 50 mg capsule Take 1 capsule by mouth once daily. norethindrone (AYGESTIN) 5 mg tablet Take 1 tablet by mouth once daily. acetaminophen (TYLENOL ARTHRITIS ORAL) Take 2 tablets by mouth two times a day as needed. meloxicam (MOBIC) 15 mg tablet Take 1 tablet by mouth once daily. No current facility-administered medications on file prior to visit. Social History Social History Tobacco Use Smoking status: Never Smokeless tobacco: Never Vaping Use Vaping status: Never Used Substance Use Topics Alcohol use: Yes Comment: Occasionally, not while pregnan (more content not included)... Normal [facility] CNOVon 02-25-2025 CNOV Office Visit (UCWSTR ) MICHAEL CASTRO ([id number]) 1985 F Date Time Provider Department 02/25/25 2:30 PM [facility] During your visit today, we recorded the following information about you: Temperature Pulse Respiration Blood pressure 97.7 degrees 79/minute 18/minute 154/89 Weight 104.8 kg Sidra Doty APRN.TYPESETTERS PRINTER 02/25/2025 2:36 PM Signed [facility] Subjective Michael Castro is a 39 year old female. Patient presents with: Ear Problem: Bilateral pain, L feels full of water x6 days Patient came in with complaints of bilateral ear pain. Patient says the left hurts worse than the right. Patient says they feel full. Patient denies any other symptoms. The history is provided by the patient. No service loss control consultant was used. Ear Problem Review of Systems Constitutional: Negative. HENT: Positive for ear pain. Objective BP 154/89 Pulse 79 Temp 36.5 ?C (97.7 ?F) Resp 18 Wt 104.8 kg (231 lb 0.7 oz) LMP 01/18/2025 (Exact Date) SpO2 100% BMI 42.93 kg/m? Physical Exam Constitutional: Appearance: Normal appearance. HENT: Right Ear: External ear normal. Tympanic membrane is erythematous. Left Ear: External ear normal. Tympanic membrane is erythematous and bulging. Mouth/Throat: Mouth: Mucous membranes are moist. Eyes: Pupils: Pupils are equal, round, and reactive to light. Cardiovascular: Rate and Rhythm: Normal rate and regular rhythm. Heart sounds: Normal heart sounds. Pulmonary: Effort: Pulmonary effort is normal. Breath sounds: Normal breath sounds. Neurological: Mental Status: She is alert. PAST MEDICAL HISTORY Diagnosis Date Acute pain of both hips 03/01/2022 Cymbalta has helped. Anxiety with depression 06/25/2021 Arthritis of right hip 12/30/2024 X-ray 12/2024: mild Elevated hemoglobin A1c 07/26/2021 GERD without esophagitis 06/25/2021 Hip pain 07/11/2014 History of 2019 novel coronavirus disease (COVID-19) 11/01/2020 10/27/2020 Inflammatory polyarthropathy (HCC) 02/10/[address] Sandoval Iron deficiency anemia 10/24/2022 Low iron 01/23/2021 Muscle spasm 05/19/2013 MVP (mitral valve prolapse) 02/10/2014 On 2 D echo 01/2014 Pain in joint, ankle and foot 02/19/2012 Pseudotumor cerebri Right hip pain 06/25/2021 Saw Ortho (Dr. Brownlee) Told bone on bone. Routine gynecological examination Dr Doty Valvular heart disease 02/10/2014 2D echo 01/2014: 1+ MVI and TI Vitamin D deficiency 02/10/2014 PAST SURGICAL HISTORY Procedure Laterality Date 2D ECHO (EXEP) EF=60%, mild MVP, +1 MVI and TI DELIVERY ONLY , low cervical DELIVERY ONLY 07/07/2017 LIGATE FALLOPIAN TUBE 2017 at csection PAST SURGICAL HISTORY OF 08/2000 TENDON REPAIR RIGHT WRIST STRESS ECHO 02/13/2021 normal TONSILLECTOMY PRIMARY/SECONDARY Tonsillectomy ALLERGIES Diamox [Acetazolamide] MEDICATIONS zonisamide (ZONEGRAN) 50 mg capsule Take 1 capsule by mouth once daily. norethindrone (AYGESTIN) 5 mg tablet Take 1 tablet by mouth once daily. acetaminophen (TYLENOL ARTHRITIS ORAL) Take 2 tablets by mouth two times a day as needed. meloxicam (MOBIC) 15 mg tablet Take 1 tablet by mouth once daily. amoxicillin-clavulana te potassium (AUGMENTIN) 875-125 mg per tablet Take 1 tablet by mouth two times a day for 7 days. FAMILY HISTORY Problem Relation Age of Onset Seizures Mother tonic-clonic, quiescent off medication No Known Problems Father No Known Problems Sister No Known Problems Sister No Known Problems Sister No Known Problems Brother No Known Problems Brother No Known Problems Brother COPD Maternal Grandmother Diabetes Maternal Grandfather Hypertension Maternal Grandfather Heart Maternal Grandfather had a difibulator Hypertension Paternal Grandmother other (Other) Paternal Grandmother No breast/hand bobbin cleaner cancer Aneurysm Paternal Grandfather other (cask gene mutation) Daughter Coronary Artery Disease No Family History Social History Tobacco Use Smoking status: Never Smokeless tobacco: Never Vaping Use Vaping status: Never Used Substance Use Topics Alcohol use: Yes Comment: Occasionally, not while Drug use: No {ASSESSMENT/PLAN: 1. Acute otitis media, left - ICD9: 382.9, ICD10: H66.92 - Will begin treatment with as per antibiotic as written, see orders - Supportive care with plenty of fluids, rest, and analgesia prn. - AMOXICILLIN 875 MG-POTASSIUM CLAVULANATE 125 MG TABLET Sidra Doty APRN.TYPESETTERS PRINTER History and Record Review External record(s) reviewed: no prior records. Disposition The patient was discharged. Procedures Referring Provider: PETRA GRANT [[id number]] Allergies As of Date: 02/25/2025 Noted Allergy Reaction DIAMOX (ACETAZOLAMIDE) 05/16/2016 14 - Other: See Comments Comments: Numbness in hands and feet Date Revi (more content not included)... Normal [facility] CNOVon 02-24-2025 CNOV Office Visit (OBGYWM ) NAVEEDMICHAEL YANG ([id number]) 1985 F Date Time Provider Department 02/24/25 11:10 AM TIM YIP OBGYWM During your visit today, we recorded the following information about you: Blood pressure Weight 132/86 102.5 kg Tim Yip MD 02/24/2025 1:56 PM Signed Michael Lucioparas is a 39 year old female who presents for problem visit for f/u heavy menses. . HPI: Menses have always been heavy but worse since AUG. and having anemia, low fe and fatigue. Had iron transfusions. Has some edema around menses, cramping and breast tenderness. Cramping limits activity. Meloxicam. USes tylenol as well but doesn't help as much. Some pain w/ intercourse on left side, crampign worse on left as well. Pain w/ orgasm. No bleeding after intercourse. Menses last 7-8 days and change protection q 2 hrs at heaviest. Taking aygestin and helped this cycle (still taking it and on menses now) No pain w/ urination or BM. WHen on period constipation. Has tried IUD and couldn't get it in, tried preprocedure meds and still couldn't get it in. Not a good combined hormonal contraceptive candate w/ her medical comorbidities and she declines. OB History Gravida4 Para2 Term1 Preterm1 AB2 Living2 SAB1 IAB0 Ectopic0 Multiple0 Live Births2 Convex Grinder History LMP: 01/18/2025 (Exact Date), Having periods Age at Menarche: 8 Age at First : Age at Menopause: Convex Grinder History Comments: Sexual Activity: Yes; Male; one clean tatoo, no transfusions Contraception: Tubal Ligation Menstrual Tracking History Flowsheet Row Office Visit from 01/20/2025 in OB/Gynecology Period Cycle (Days) 6 Period Duration (Days) 6 Menstrual Flow Heavy PAST MEDICAL HISTORY Diagnosis Date Acute pain of both hips 03/01/2022 Cymbalta has helped. Anxiety with depression 06/25/2021 Arthritis of right hip 12/30/2024 X-ray 12/2024: mild Elevated hemoglobin A1c 07/26/2021 GERD without esophagitis 06/25/2021 Hip pain 07/11/2014 History of 2019 novel coronavirus disease (COVID-19) 11/01/2020 10/27/2020 Inflammatory polyarthropathy (HCC) 02/10/[address] Sandoval Iron deficiency anemia 10/24/2022 Low iron 01/23/2021 Muscle spasm 05/19/2013 MVP (mitral valve prolapse) 02/10/2014 On 2 D echo 01/2014 Pain in joint, ankle and foot 02/19/2012 Pseudotumor cerebri Right hip pain 06/25/2021 Saw Ortho (Dr. Brownlee) Told bone on bone. Routine gynecological examination Dr Doty Valvular heart disease 02/10/2014 2D echo 01/2014: 1+ MVI and TI Vitamin D deficiency 02/10/2014 PAST SURGICAL HISTORY Procedure Laterality Date 2D ECHO (EXEP) ''2013 EF=60%, mild MVP, +1 MVI and TI DELIVERY ONLY , low cervical DELIVERY ONLY 07/07/2017 LIGATE FALLOPIAN TUBE 2017 at csection PAST SURGICAL HISTORY OF 08/2000 TENDON REPAIR RIGHT WRIST STRESS ECHO 02/13/2021 normal TONSILLECTOMY PRIMARY/SECONDARY Tonsillectomy FAMILY HISTORY Problem Relation Age of Onset Seizures Mother tonic-clonic, quiescent off medication No Known Problems Father No Known Problems Sister No Known Problems Sister No Known Problems Sister No Known Problems Brother No Known Problems Brother No Known Problems Brother COPD Maternal Grandmother Diabetes Maternal Grandfather Hypertension Maternal Grandfather Heart Maternal Grandfather had a difibulator Hypertension Paternal Grandmother other (Other) Paternal Grandmother No breast/hand bobbin cleaner cancer Aneurysm Paternal Grandfather other (cask gene mutation) Daughter Coronary Artery Disease No Family History Social History Tobacco Use Smoking status: Never Smokeless tobacco: Never Vaping Use Vaping status: Never Used Substance Use Topics Alcohol use: Yes Comment: Occasionally, not while Drug use: No Current Outpatient Medications Medication Sig zonisamide (ZONEGRAN) 50 mg capsule Take 1 capsule by mouth once daily. norethindrone (AYGESTIN) 5 mg tablet Take 1 tablet by mouth once daily. acetaminophen (TYLENOL ARTHRITIS ORAL) Take 2 tablets by mouth two times a day as needed. meloxicam (MOBIC) 15 mg tablet Take 1 tablet by mouth once daily. No current facility-administered medications for this visit. Allergies As of Date: 02/24/2025 Allergen Noted Reaction DIAMOX [ACETAZOLAMIDE] 05/16/2016 Other: See Comments Fully Assessed 02/24/2025 REAllergies and current medication updated:Yes SENSITIVE EXAM: The sensitive examination was discussed with the Patient or Patient's Authorized Purchasing Internship. As applicable, any other physician, advance practice provider, medical student, or other health professional student that will be observing or involved in the sensitive examination for educational or training purposes was discussed with the Patient or Authorized Purchasing Internship. The Patient or Authorized Purchasing Internship has (more content not included)... [facility] Telephone (NOAH) MICHAEL CASTRO ([id number]) 1985 F Date Time Provider Department 02/22/25 ADELINA ELMORE During your visit today, we recorded the following information about you: Adelina Elmore LISW 02/22/2025 11:06 AM Signed [facility] 1st time treatment report. Pt has a non-oncology regimen. No social work follow up indicated. PAULINE Montes-Lety Allergies As of Date: 02/22/2025 Noted Allergy Reaction DIAMOX (ACETAZOLAMIDE) 05/16/2016 14 - Other: See Comments Comments: Numbness in hands and feet Date Reviewed: 02/17/2025 Reviewed by: Tanya Vernon APRN.TYPESETTERS PRINTER - Fully Assessed Reason for Visit: Social Work Services [507] 1st Time Treatment Report [Other] Prescriptions as of 02/22/2025 - zonisamide (ZONEGRAN) 50 mg capsule Take 1 capsule by mouth once daily. - norethindrone (AYGESTIN) 5 mg tablet Take 1 tablet by mouth once daily. - acetaminophen (TYLENOL ARTHRITIS ORAL) Take 2 tablets by mouth two times a day as needed. - meloxicam (MOBIC) 15 mg tablet Take 1 tablet by mouth once daily. Meds Comments as of 04/08/2008: All medications reviewed April 08, 2008 Sara Akers Rn Problem List As Of Date 02/22/2025 Noted Resolved SUPERVIS NORMAL 1ST PREG [Z34.00] 04/08/2008 12/28/2008 THRT RILEY LABOR-ANTEPART [O47.00] 10/04/2008 12/28/2008 Pain in joint, ankle and foot [M25.579] 02/19/2012 Dyspareunia [TJQ0680] 04/05/2013 Muscle spasm [M62.838] 05/19/2013 Routine gynecological examination [Z01.419] 10/26/2014 Inflammatory polyarthropathy (HCC) [M06.4] 02/10/2014 Vitamin D deficiency [E55.9] 02/10/2014 MVP (mitral valve prolapse) [I34.1] 02/10/2014 Valvular heart disease [I38] 02/10/2014 Well adult exam [Z00.00] 08/04/2014 NSAID long-term use [Z79.1] 08/04/2014 Morbid obesity (HCC) [E66.01] 08/04/2014 Pseudotumor cerebri [G93.2] 11/14/2015 Menorrhagia with regular cycle [N92.0] 05/16/2016 04/28/2017 Encounter for screening for cardiovascular diso*05/16/2016 History of delivery, currently pregnan*12/12/2016 08/12/2017 History of labor [Z87.51] 12/12/2016 08/12/2017 Family history of genetic disease [Z84.89] 12/12/2016 Nausea and vomiting during [O21.9] 12/12/2016 08/12/2017 History of mitral valve disorder [Z86.79] 12/12/2016 Patient requested diagnostic testing [Z01.89] 12/12/2016 01/14/2017 Request for sterilization [Z30.2] 05/09/2017 08/12/2017 History of 2019 novel coronavirus disease (COVI*11/01/2020 Low iron [E61.1] 01/23/2021 Right hip pain [M25.551] 06/25/2021 Anxiety with depression [F41.8] 06/25/2021 GERD without esophagitis [K21.9] 06/25/2021 Elevated hemoglobin A1c [R73.09] 07/26/2021 Acute pain of both hips [M25.551, M25.552] 03/01/2022 Medication management [Z79.899] 03/01/2022 Iron deficiency anemia due to chronic blood los*10/24/2022 Arthritis of right hip [M16.11] 12/30/2024 Encounter Status:Closed by ADELINA ELMORE on 02/22/25 Normal [facility] CNCOon 02-15-2025 CNCO Letter Text Normal [facility] CNPNon 02-15-2025 CNPN Telephone (ABDON) MICHAEL CASTRO ([id number]) 1985 F Date Time Provider Department 02/15/25 DAMIEN SHAVER JR During your visit today, we recorded the following information about you: Raquel Shannon 02/15/2025 1:11 PM Signed LVM for the patient about canceled appt. gave the patient ph# [phone] to call to reschedule appt Sent the patient a MyChart message. Shalonda Guerrero LPN 02/15/2025 1:30 PM Signed Patient calling to reschedule her appt with Neurology if possible to see someone on 02/18/2025. Assisted with transfer to home care scheduler to get appt set up. Merlene Pineda 02/15/2025 1:58 PM Signed Scheduled patient with neurology PAUL at [facility] on 02/17/25. Please notify patient if scheduled incorrectly and needs to be seen elsewhere. Allergies As of Date: 02/15/2025 Noted Allergy Reaction DIAMOX (ACETAZOLAMIDE) 05/16/2016 14 - Other: See Comments Comments: Numbness in hands and feet Date Reviewed: 02/14/2025 Reviewed by: Shalonda Duff RN - Fully Assessed Reason for Visit: Appointment Rescheduled [1024] Appointment Cancelled [1023] Prescriptions as of 02/15/2025 - norethindrone (AYGESTIN) 5 mg tablet Take 1 tablet by mouth once daily. - acetaminophen (TYLENOL ARTHRITIS ORAL) Take 2 tablets by mouth two times a day as needed. - meloxicam (MOBIC) 15 mg tablet Take 1 tablet by mouth once daily. Meds Comments as of 04/08/2008: All medications reviewed /April 08, 2008 Sara Akers Rn Problem List As Of Date 02/15/2025 Noted Resolved SUPERVIS NORMAL 1ST PREG [Z34.00] 04/08/2008 12/28/2008 THRT RILEY LABOR-ANTEPART [O47.00] 10/04/2008 12/28/2008 Pain in joint, ankle and foot [M25.579] 02/19/2012 Dyspareunia [MVT5374] 04/05/2013 Muscle spasm [M62.838] 05/19/2013 Routine gynecological examination [Z01.419] 10/26/2014 Inflammatory polyarthropathy (HCC) [M06.4] 02/10/2014 Vitamin D deficiency [E55.9] 02/10/2014 MVP (mitral valve prolapse) [I34.1] 02/10/2014 Valvular heart disease [I38] 02/10/2014 Well adult exam [Z00.00] 08/04/2014 NSAID long-term use [Z79.1] 08/04/2014 Morbid obesity (HCC) [E66.01] 08/04/2014 Pseudotumor cerebri [G93.2] 11/14/2015 Menorrhagia with regular cycle [N92.0] 05/16/2016 04/28/2017 Encounter for screening for cardiovascular diso*05/16/2016 History of delivery, currently pregnan*12/12/2016 08/12/2017 History of labor [Z87.51] 12/12/2016 08/12/2017 Family history of genetic disease [Z84.89] 12/12/2016 Nausea and vomiting during [O21.9] 12/12/2016 08/12/2017 History of mitral valve disorder [Z86.79] 12/12/2016 Patient requested diagnostic testing [Z01.89] 12/12/2016 01/14/2017 Request for sterilization [Z30.2] 05/09/2017 08/12/2017 History of 2019 novel coronavirus disease (COVI*11/01/2020 Low iron [E61.1] 01/23/2021 Right hip pain [M25.551] 06/25/2021 Anxiety with depression [F41.8] 06/25/2021 GERD without esophagitis [K21.9] 06/25/2021 Elevated hemoglobin A1c [R73.09] 07/26/2021 Acute pain of both hips [M25.551, M25.552] 03/01/2022 Medication management [Z79.899] 03/01/2022 Iron deficiency anemia due to chronic blood los*10/24/2022 Arthritis of right hip [M16.11] 12/30/2024 Encounter Status:Closed by RAQUEL SHANNON on 02/15/25 [facility] CNOVSPon 02-10-2025 CNOVSP Visit (SP) Office (HEMAWS) MICHAEL CASTRO ([id number]) 1985 F Date Time Provider Department 3/20/25 10:30 AM PETRA GRANT During your visit today, we recorded the following information about you: Temperature Pulse Blood pressure Weight 98.1 degrees 75/minute 144/86 105.7 kg Height 1.563 m Petra Grant 02/14/2025 9:59 AM Signed Progress Note Michael Castro 1985 Encounter date: 02/10/2025 HPI: Michael Castro is a 39 year old female presenting as a new referral for iron deficiency. She is fatigued. Feels that it is worse lately. She has tried PO iron in several formulations for several years. Unable to tolerate due to GI symptoms. Feels like lead sitting in stomach. Causes nausea and vomiting. Heavy menses. Periods are every 3 weeks last 7 days. Saturating 1 pad/hr. Passing large clots. 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 She is on norethindrone in efforts to slow bleeding. Planning for possible hysterectomy. She does have lower abd pains on a regular basis, generalized, stable. Constipation. Denies hematuria or hematochezia. Denies hx of abd surgeries, no GERD. No prior colonoscopy. Ice cravings all day long for as long as I can remember. Does not follow any particular dietary restrictions. Tried to eat primarily iron rich foods. No RLS. No hx of iron infusions or blood transfusions. No known personal or family hx of blood disorders or cancers. No PAST MEDICAL HISTORY Diagnosis Date Acute pain of both hips 03/01/2022 Cymbalta has helped. Anxiety with depression 06/25/2021 Arthritis of right hip 12/30/2024 X-ray 12/2024: mild Elevated hemoglobin A1c 07/26/2021 GERD without esophagitis 06/25/2021 Hip pain 07/11/2014 History of 2019 novel coronavirus disease (COVID-19) 11/01/2020 10/27/2020 Inflammatory polyarthropathy (HCC) 02/10/[address] Sandoval Iron deficiency anemia 10/24/2022 Low iron 01/23/2021 Muscle spasm 05/19/2013 MVP (mitral valve prolapse) 02/10/2014 On 2 D echo 01/2014 Pain in joint, ankle and foot 02/19/2012 Pseudotumor cerebri Right hip pain 06/25/2021 Saw Ortho (Dr. Brownlee) Told bone on bone. Routine gynecological examination Dr Doty Valvular heart disease 02/10/2014 2D echo 01/2014: 1+ MVI and TI Vitamin D deficiency 02/10/2014 PAST SURGICAL HISTORY Procedure Laterality Date 2D ECHO (EXEP) EF=60%, mild MVP, +1 MVI and TI DELIVERY ONLY , low cervical DELIVERY ONLY 07/07/2017 LIGATE FALLOPIAN TUBE 2017 at csection PAST SURGICAL HISTORY OF 08/2000 TENDON REPAIR RIGHT WRIST STRESS ECHO 02/13/2021 normal TONSILLECTOMY PRIMARY/SECONDARY Tonsillectomy Current Outpatient Medications Medication Sig Dispense Refill norethindrone (AYGESTIN) 5 mg tablet Take 1 tablet by mouth once daily. 50 tablet 1 acetaminophen (TYLENOL ARTHRITIS ORAL) Take 2 tablets by mouth two times a day as needed. meloxicam (MOBIC) 15 mg tablet Take 1 tablet by mouth once daily. 30 tablet 6 No current facility-administered medications for this visit. 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 Appears well. HEENT: Normocephalic, no sclera icterus, external ears normal Neck: Supple, No JVD Chest: Clear bilaterally, no wheezes, not labored. Heart: Normal S1 and S2, no abnormal sounds Abdomen: Soft, nontender, nondistended Extremities: No cyanosis, clubbing, gross deformities Neurological: Cranial nerves II through XII are intact bilaterally no focal deficits. Skin: Warm and dry with no rashes or ulcerations. Nodes: No palpable adenopathy in the cervical, supraclavicular, infraclavicular regions. Hematologic: no bruising or petechiae. Psychiatric: Alert and oriented x3. I have performed the physical exam today (02/10/2025) and have edited the note to correlate with current findings. Lab Results Component Value Date WBC 12.17 (H) 01/31/2025 HB 10.1 (L) 01/31/2025 MCV 77.2 (L) 01/31/2025 PLT 478 (H) 01/31/2025 Lab Re (more content not included)... Normal [facility] CNOVon 02-03-2025 CNOV Office Visit (OBGYWM ) MICHAEL CASTRO ([id number]) 1985 F Date Time Provider Department 02/03/25 9:20 AM MINE DOTY OBLISBET During your visit today, we recorded the following information about you: Blood pressure Weight Height 136/74 104.8 kg 1.556 m Mine Doty MD 02/03/2025 12:39 PM Signed Maya is a 39 year old who presents for a pap and follow up. HPI: Patient states she is unable to tolerate PO iron. She has tried different formulations in the past. Patient reports pelvic pain in addition to her heavy menses. OB History Gravida4 Para2 Term1 Preterm1 AB2 Living2 SAB1 IAB0 Ectopic0 Multiple0 Live Births2 Convex Grinder History LMP: 01/18/2025 (Exact Date), Having periods Age at Menarche: 8 Age at First : Age at Menopause: Convex Grinder History Comments: Sexual Activity: Yes; Male; one clean tatoo, no transfusions Contraception: Tubal Ligation Menstrual Tracking History Flowsheet Row Office Visit from 01/20/2025 in OB/Gynecology Period Cycle (Days) 6 Period Duration (Days) 6 Menstrual Flow Heavy PAST MEDICAL HISTORY Diagnosis Date Acute pain of both hips 03/01/2022 Cymbalta has helped. Anxiety with depression 06/25/2021 Arthritis of right hip 12/30/2024 X-ray 12/2024: mild Elevated hemoglobin A1c 07/26/2021 GERD without esophagitis 06/25/2021 Hip pain 07/11/2014 History of 2019 novel coronavirus disease (COVID-19) 11/01/2020 10/27/2020 Inflammatory polyarthropathy (HCC) 02/10/[address] Sandoval Iron deficiency anemia 10/24/2022 Low iron 01/23/2021 Muscle spasm 05/19/2013 MVP (mitral valve prolapse) 02/10/2014 On 2 D echo 01/2014 Pain in joint, ankle and foot 02/19/2012 Pseudotumor cerebri Right hip pain 06/25/2021 Saw Ortho (Dr. Brownlee) Told bone on bone. Routine gynecological examination Dr Doty Valvular heart disease 02/10/2014 2D echo 01/2014: 1+ MVI and TI Vitamin D deficiency 02/10/2014 PAST SURGICAL HISTORY Procedure Laterality Date 2D ECHO (EXEP) EF=60%, mild MVP, +1 MVI and TI DELIVERY ONLY , low cervical DELIVERY ONLY 07/07/2017 LIGATE FALLOPIAN TUBE 2017 at csection PAST SURGICAL HISTORY OF 08/2000 TENDON REPAIR RIGHT WRIST STRESS ECHO 02/13/2021 normal TONSILLECTOMY PRIMARY/SECONDARY Tonsillectomy FAMILY HISTORY Problem Relation Age of Onset Seizures Mother tonic-clonic, quiescent off medication No Known Problems Father Diabetes Maternal Grandfather Hypertension Maternal Grandfather Heart Maternal Grandfather had a difibulator Hypertension Paternal Grandmother other (Other) Paternal Grandmother 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 No bloating, early satiety, indigestion, or increased flatulence. Bladder: No dysuria, gross hematuria, urinary frequency, urinary urgency, or incontinence. Breast: No breast lumps, nipple d/c, overlying skin changes, redness or skin retraction. Allergies and current medication updated:Yes SENSITIVE EXAM: The sensitive examination was discussed with the Patient or Patient's Authorized Purchasing Internship. As applicable, any other physician, advance practice provider, medical student, or other health professional student that will be observing or involved in the sensitive examination for educational or training purposes was discussed with the Patient or Authorized Purchasing Internship. The Patient or Authorized Purchasing Internship has agreed to proceed with the sensitive examination. (Sensitive examination includes inspection and/or palpation of the breasts, pelvis, prostate and anorectal regions). EXAM: BP 136/74 Ht 5' 1.25 (1.56m) Wt 231 lb (104.8kg) LMP 01/18/2025 BMI 43.28 kg/(m2). GENERAL: pleasant, female in no apparent distress BREAST: soft, non-tender, symmetric, no dominant mass, normal nipple-areolar complex, no lymphadenopathy, and no nipple discharge CHEST: Normal inspiratory effort ABDOMEN: soft, non-tender, and no masses PELVIC: external genitalia normal, normal Bartholin's glands, urethra, [place]'s glands, no vulvar lesions, no cervical lesions, good vaginal support, physiologic discharge present, normal appearing perineal body and perianal region BIMANUAL: uterus normal size, shape and consistency, no adnexal masses, and non-tender RECTOVAGINAL: deferred. NEURO: alert and oriented x3,exam grossly non-focal EXTREMITIES: normal ASSESSMENT/PLAN: 1) Health maintenance: Pap done with HPV. (more content not included)... Normal [facility] HIGH RISK HUMAN PAPILLOMA AMENA (HPV), PCR FOR DETECTION AND GENOTYPINGon 02-03-2025 HPV 16 Ag Ql (Unsp spec) Not detected Normal Not detected [facility] Comment on above: Order Comment: Speci men Type: FLUID SPECIMENOrdering Facility: [facility] Address: [address] [place] [address] Performed By: #### H PVHRT ####[facility] LABCLIA [id number] [place] [address] [place] HPV 18 Ag Ql (Unsp spec) Not detected Normal Not detected [facility] Comment on above: Order Comment: Speci men Type: FLUID SPECIMENOrdering Facility: [facility] Address: [address] [place] [address] Performed By: #### H PVHRT ####[facility] LABCLIA [id number] [place] [address] [place] HPV 31+33+35+39+45+51+52+56 +58+59+66+68 DNA AURA+probe Ql (Cvx) Not detected Normal Not detected [facility] Comment on above: Order Comment: Speci men Type: FLUID SPECIMENOrdering Facility: [facility] Address: [address] [place] [address] Result Comment: High Risk HPV Other Type includes HPV types 31, 33, 35, 39, 45, 51, 52, 56, 58, 59, 66 and 68. Performed By: #### H PVHRT ####[facility] LABCLIA [id number] [place] [address] [place] PAP TESTon 02-03-2025 ADEQUACY Normal [facility] Comment on above: Order Comment: Speci men Type: FLUID SPECIMENOrdering Facility: [facility] Address: [address] [place] [address] Result Comment: Sati sfactory for interpretation. No endocervical component Performed By: #### L [id number] ####[facility] LABCLIA [id number] [address] [place] CASE REPORT Normal [facility] Comment on above: Order Comment: Speci men Type: FLUID SPECIMENOrdering Facility: [facility] Address: [address] [place] [address] Result Comment: Gyne cologic Cytology Report Case: [id number] Authorizing Provider: Mine Doty MD Collected: 02/03/2025 10:06 AM Ordering Location: OB/Gynecology Received: 02/03/2025 11:42 AM First Screen: Carol Ann Hernández, CT, ASCP Rescreen: Lisa Nugent, CT, ASCP Specimen: Pap Test, ThinPrep, Cervix Performed By: #### L [id number] ####[facility] LABCLIA [id number] [address] [address] [place] CLINICAL HISTORY, CYTOLOGY, HEAD GOLF COACH Routine Exam Normal [facility] Comment on above: Order Comment: Speci men Type: FLUID SPECIMENOrdering Facility: [facility] Address: [address] [place], [place] [address] Performed By: #### L [id number] ####[facility] LABCLIA [id number] [address] [address] [place] CYTOLOGY PAP OTHER INTERPRETATION Predominance of coccobacilli consistent with shift in vaginal zainab. Normal [facility] Comment on above: Order Comment: Speci men Type: FLUID SPECIMENOrdering Facility: [facility] Address: [address] [place] [address] Performed By: #### L [id number] ####[facility] LABCLIA [id number] [place] [id number] [place] FINAL PERFORMING LAB Normal [facility] Comment on above: Order Comment: Speci men Type: FLUID SPECIMENOrdering Facility: [facility] Address: [address] [place] [address] Result Comment: Tech nical component, sales correspondence clerk screening performed at [facility], [address] [place] [address] [place] [address] CLIA# [id number] Diagnostic interpretation performed at [facility], [address] [place] [address] [place] [address] CLIA# [id number] Research Software Engineer: James Caicedo M.D. Performed By: #### L [id number] ####[facility] LABCLIA [id number] [address] [address] [place] INTERPRETATION, CYTOLOGY, HEAD GOLF COACH Normal [facility] Comment on above: Order Comment: Speci men Type: FLUID SPECIMENOrdering Facility: [facility] Address: [address] [place], [place] [address] Result Comment: Nega tive for intraepithelial lesion or malignancy. at 1251 EDT Performed By: #### L [id number] ####[facility] LABCLIA [id number] [address] [place] [address] [place] LMP 01/18/2025 Normal [facility] Comment on above: Order Comment: Speci men Type: FLUID SPECIMENOrdering Facility: [facility] Address: [address] [place] [address] Performed By: #### L [id number] ####[facility] LABCLIA [id number] [address] [place] [address] [place] PAP DISCLAIMER COMMENT The Pap Smear is a screening test for cervical cancer. False negative results occur with all screening tests, emphasizing the need for rescreening at recommended intervals, and clinical correlation. Normal [facility] Comment on above: Order Comment: Speci men Type: FLUID SPECIMENOrdering Facility: [facility] Address: [address] [place] [address] Performed By: #### L [id number] ####[facility] LABCLIA [id number] [address] [place] [address] [place] PAP SLICER MACHINE OPERATOR COMMENT This specimen has been analyzed by the ThinPrep Imaging System, an automated imaging and review system, which assists the laboratory in evaluating cells on ThinPrep Pap tests. Following automated imaging, selected gutierres from every slide are reviewed by a sales correspondence clerk. Normal [facility] Comment on above: Order Comment: Speci men Type: FLUID SPECIMENOrdering Facility: [facility] Address: [address] [place] [address] Performed By: #### L [id number] ####[facility] LABIA [id number] [address] [address] [place] 25([place])D3 [facility] 2024 25-hydroxyvitamin D3 [Mass/Vol] 38.1 ng/mL Normal 31.0-80.0 [facility] Comment on above: Order Comment: Speci men Type: BLOOD SPECIMENOrdering Facility: [facility] Address: [address] [place] [address] Result Comment: Clas sification of 25 [place] Vitamin D status: Deficiency/Insufficiency: < or = 30 ng/ml. Sufficiency/Optimal Levels: 31-80 ng/mL Toxicity: > 100 ng/mL. Test performed by chemiluminescent immunoassay. Performed By: #### 1 989-3 ####[facility] [id number] [place] [address] [place] BREANN BY IFA WITH REFLEXon Nuclear Ab Ql (S) Negative Normal Negative [facility] Comment on above: Order Comment: Speci men Type: BLOOD SPECIMENOrdering Facility: [facility] Address: [address] [place] [address] Result Comment: Anti -nuclear antibody test is used as an aid in diagnosis of systemic autoimmune diseases. Where positive and clinically warranted, follow-up using disease-specific testing is recommended. Low positive titers are not uncommon with advanced age, certain chronic infections, and malignancies among others. Test methodology: Indirect fluorescence immunoassay (IFA) using HEp-2 cells. Performed By: #### A NAIFR ####[facility] [id number] [place] [address] [place] CBC W Auto Differential pane l (Bld)on 01-31-2025 Basophils (Bld) [#/Vol] 0.05 10*3/uL Normal <0.11 [facility] Comment on above: Order Comment: Speci men Type: BLOOD SPECIMENOrdering Facility: [facility] Address: [address] [place] [address] Performed By: #### 5 7021-8 ####[facility] LABIA [id number] [place] [address] [place] Basophils/100 WBC (Bld) 0.4 % Normal C [facility] Comment on above: Order Comment: Speci men Type: BLOOD SPECIMENOrdering Facility: [facility] Address: [address] [place] [address] Performed By: #### 5 7021-8 ####[facility] LABCLIA [id number] [place] [address] [place] Differential cell count method Nom (Bld) Auto Normal [facility] Comment on above: Order Comment: Speci men Type: BLOOD SPECIMENOrdering Facility: [facility] Address: [address] [place] [address] Performed By: #### 5 7021-8 ####[facility] LABCLIA [id number] [place] [address] [place] Eosinophils (Bld) [#/Vol] 0.07 10*3/uL Normal <0.46 [facility] Comment on above: Order Comment: Speci men Type: BLOOD SPECIMENOrdering Facility: [facility] Address: [address] [place] [address] Performed By: #### 5 7021-8 ####[facility] LABCLIA [id number] [place] [address] [place] Eosinophils/100 WBC (Bld) 0.6 % Normal [facility] Comment on above: Order Comment: Speci men Type: BLOOD SPECIMENOrdering Facility: [facility] Address: [address] [place] [address] Performed By: #### 5 7021-8 ####[facility] LABCLIA [id number] [place] [address] [place] Erythrocyte distribution width (RBC) [Ratio] 18.4 % High 11.5-15.0 [facility] Comment on above: Order Comment: Speci men Type: BLOOD SPECIMENOrdering Facility: [facility] Address: [address] [place] [address] Performed By: #### 5 7021-8 ####[facility] LABCLIA [id number] [place] [id number] [place] Hematocrit (Bld) [Volume fraction] 34.6 % Low 36.0-46.0 [facility] Comment on above: Order Comment: Speci men Type: BLOOD SPECIMENOrdering Facility: [facility] Address: [address] [place] [address] Performed By: #### 5 7021-8 ####[facility] LABCLIA [id number] [address] [address] [place] Hemoglobin (Bld) [Mass/Vol] 10.1 g/dL Low 11.5-15.5 [facility] Comment on above: Order Comment: Speci men Type: BLOOD SPECIMENOrdering Facility: [facility] Address: [address] [place] [address] Performed By: #### 5 7021-8 ####[facility] LABCLIA [id number] [place] [address] [place] Immature granulocytes (Bld) [#/Vol] 0.04 10*3/uL Normal <0.10 [facility] Comment on above: Order Comment: Speci men Type: BLOOD SPECIMENOrdering Facility: [facility] Address: [address] [place] [address] Performed By: #### 5 7021-8 ####[facility] LABCLIA [id number] [place] [address] [place] Immature granulocytes/100 WBC (Bld) 0.3 % Normal [facility] Comment on above: Order Comment: Speci men Type: BLOOD SPECIMENOrdering Facility: [facility] Address: [address] [place] [address] Performed By: #### 5 7021-8 ####[facility] LABCLIA [id number] [place] [address] [place] Lymphocytes (Bld) [#/Vol] 3.18 10*3/uL Normal 1.00-4.00 [facility] Comment on above: Order Comment: Speci men Type: BLOOD SPECIMENOrdering Facility: [facility] Address: [address] [place] [address] Performed By: #### 5 7021-8 ####[facility] LABCLIA [id number] [place] [address] [place] Lymphocytes/100 WBC (Bld) 26.1 % Normal [facility] Comment on above: Order Comment: Speci men Type: BLOOD SPECIMENOrdering Facility: [facility] Address: [address] [place] [address] Performed By: #### 5 7021-8 ####[facility] LABIA [id number] [place] [address] [place] MCH (RBC) [Entitic mass] 22.5 pg Low 26.0-34.0 [facility] Comment on above: Order Comment: Speci men Type: BLOOD SPECIMENOrdering Facility: [facility] Address: [address] [place] [address] Performed By: #### 5 7021-8 ####[facility] LABIA [id number] [place] [address] [place] MCHC (RBC) [Mass/Vol] 29.2 g/dL Low 30.5-36.0 Enrique [facility] Comment on above: Order Comment: Speci men Type: BLOOD SPECIMENOrdering Facility: [facility] Address: [address] [place] [address] Performed By: #### 5 7021-8 ####[facility] LABIA [id number] [place] [address] [place] MCV (RBC) [Entitic vol] 77.2 fL Low 80.0-100.[address] [facility] Comment on above: Order Comment: Speci men Type: BLOOD SPECIMENOrdering Facility: [facility] Address: [address] [place] [address] Performed By: #### 5 7021-8 ####[facility] LABIA [id number] [place] [address] [place] Monocytes (Bld) [#/Vol] 0.66 10*3/uL Normal <0.87 [facility] Comment on above: Order Comment: Speci men Type: BLOOD SPECIMENOrdering Facility: [facility] Address: [address] [place] [address] Performed By: #### 5 7021-8 ####[facility] LABCLIA [id number] [place] [address] [place] Monocytes/100 WBC (Bld) 5.4 % Normal [facility] Comment on above: Order Comment: Speci men Type: BLOOD SPECIMENOrdering Facility: [facility] Address: [address] [place] [address] Performed By: #### 5 7021-8 ####[facility] LABCLIA [id number] [place] [address] [place] Neutrophils (Bld) [#/Vol] 8.17 10*3/uL High 1.45-7.50 [facility] Comment on above: Order Comment: Speci men Type: BLOOD SPECIMENOrdering Facility: [facility] Address: [address] [place] [address] Performed By: #### 5 7021-8 ####[facility] LABCLIA [id number] [place] [address] [place] Neutrophils/100 WBC (Bld) 67.2 % Normal [facility] Comment on above: Order Comment: Speci men Type: BLOOD SPECIMENOrdering Facility: [facility] Address: [address] [place] [address] Performed By: #### 5 7021-8 ####[facility] LABCLIA [id number] [place] [address] [place] Nucleated RBC (Bld) [#/Vol] 10*3/uL Normal <0.01 [facility] Comment on above: Order Comment: Speci men Type: BLOOD SPECIMENOrdering Facility: [facility] Address: [address] [place] [address] Performed By: #### 5 7021-8 ####[facility] LABCLIA [id number] [address] [place] [address] [place] Nucleated RBC/100 WBC (Bld) [Ratio] 0.0 /100 WBC Normal [facility] Comment on above: Order Comment: Speci men Type: BLOOD SPECIMENOrdering Facility: [facility] Address: [address] [place] [address] Performed By: #### 5 7021-8 ####[facility] LABCLIA [id number] [address], [place] [address] [place] Platelet mean volume (Bld) [Entitic vol] 11.4 fL Normal 9.0-12.7 [facility] Comment on above: Order Comment: Speci men Type: BLOOD SPECIMENOrdering Facility: [facility] Address: [address] [place] [address] Performed By: #### 5 7021-8 ####[facility] LABCLIA [id number] [place] [id number] [place] Platelets (Bld) [#/Vol] 478 10*3/uL High 150-400 [facility] Comment on above: Order Comment: Speci men Type: BLOOD SPECIMENOrdering Facility: [facility] Address: [address] [place] [address] Performed By: #### 5 7021-8 ####[facility] LABCLIA [id number] [address] [place] [address] [place] RBC (Bld) [#/Vol] 4.48 10*6/uL Normal 3.90-5.20 [facility] Comment on above: Order Comment: Speci men Type: BLOOD SPECIMENOrdering Facility: [facility] Address: [address] [place] [address] Performed By: #### 5 7021-8 ####[facility] LABCLIA [id number] [place] [address] [place] WBC (Bld) [#/Vol] 12.17 10*3/uL High 3.70-11.00 [facility] Comment on above: Order Comment: Speci men Type: BLOOD SPECIMENOrdering Facility: [facility] Address: [address] [place] [address] Performed By: #### 5 7021-8 ####[facility] LABCLIA [id number] [place] [id number] [place] CNCOon 01-31-2025 CNCO Letter Text Normal [facility] CNOVon 01-31-2025 CNOV Office Visit (ROSA MARIAPWS ) MICHAEL CASTRO ([id number]) 1985 F Date Time Provider Department 01/31/25 11:40 AM SHENA DWYER During your visit today, we recorded the following information about you: Temperature Pulse Respiration Blood pressure 97.3 degrees 80/minute 18/minute 112/82 Weight Height 104.3 kg 1.555 m Shena Dwyer PA-C 01/31/2025 11:52 AM Addendum Chief Complaint Patient presents with: Yearly Exam HPI Michael Castro is a 39 year old female who presents here today for physical. Patient with hx as below. Recently saw PCP and was referred to ortho. Injection was done last week. Has been dealing with chronic fatigue. Ready to come up with a definitive cause and plans to follow up on the testing. Recent labs +anemia. Recently told to start iron. However she has never been able to tolerate oral iron. Being worked up for frequent heavy menstrual bleeding. Recent US showed fibroids. 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 Has had significant weight loss over the years. . States she has not specifically been trying. Really struggling with her day to day tasks. Some days struggling to care for her child. She also has a follow up with neuro. Reports chronic daily Headaches. Suspects she will end up needed another spinal puncture to release excess fluid. Last one in 2021 Last 10 Encounter Wt Readings: Date: Wt: 01/31/2025 104.3 kg (230 lb) 10/20/2024 108.5 kg (239 lb 3.2 oz) 02/26/2023 119.4 kg (263 lb 3.2 oz) Past medical history, appointments, medications, allergies reviewed. Previous Medical History PAST MEDICAL HISTORY Diagnosis Date Acute pain of both hips 03/01/2022 Cymbalta has helped. Anxiety with depression 06/25/2021 Arthritis of right hip 12/30/2024 X-ray 12/2024: mild Elevated hemoglobin A1c 07/26/2021 GERD without esophagitis 06/25/2021 Hip pain 07/11/2014 History of 2019 novel coronavirus disease (COVID-19) 11/01/2020 10/27/2020 Inflammatory polyarthropathy (HCC) 02/10/[address] Sandoval Iron deficiency anemia 10/24/2022 Low iron 01/23/2021 Muscle spasm 05/19/2013 MVP (mitral valve prolapse) 02/10/2014 On 2 D echo 01/2014 Pain in joint, ankle and foot 02/19/2012 Pseudotumor cerebri Right hip pain 06/25/2021 Saw Ortho (Dr. Brownlee) Told bone on bone. Routine gynecological examination Dr Doty Valvular heart disease 02/10/2014 2D echo 01/2014: 1+ MVI and TI Vitamin D deficiency 02/10/2014 Previous Surgical History PAST SURGICAL HISTORY Procedure Laterality Date 2D ECHO (EXEP) EF=60%, mild MVP, +1 MVI and TI DELIVERY ONLY , low cervical DELIVERY ONLY 07/07/2017 LIGATE FALLOPIAN TUBE 2017 at csection PAST SURGICAL HISTORY OF 08/2000 TENDON REPAIR RIGHT WRIST STRESS ECHO 02/13/2021 normal TONSILLECTOMY PRIMARY/SECONDARY Tonsillectomy Family History FAMILY HISTORY Problem Relation Age of Onset Seizures Mother tonic-clonic, quiescent off medication No Known Problems Father Diabetes Maternal Grandfather Hypertension Maternal Grandfather Heart Maternal Grandfather had a difibulator Hypertension Paternal Grandmother other (Other) Paternal Grandmother No 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 meloxicam (MOBIC) 15 mg tablet Take 1 tablet by mouth once daily. No current facility-administered medications on file prior to visit. Social History Social History Tobacco Use Smoking status: Never Smokeless tobacco: Never Vaping Use Vaping status: Never Used Substance Use Topics Alcohol use: Yes Comment: Occasionally, not while Drug use: No Review of Symptoms REVIEW OF SYSTEMS See HPI No chest pain or shortness of breath. EXAM: BP 112/82 (BP Site: Left Arm, BP Position: Sitting, BP Cuff Size: Regular Adult) Pulse 80 Temp 36.3 ?C (97.3 ?F) Resp 18 Ht 155.5 cm (5' 1.22) Wt 104.3 kg (230 lb) LMP 01/18/2025 (Exact Date) SpO2 100% BMI 43.15 kg/m? General Appearance: Well appearing, alert, in no acute distress, well-hydrated, well nourished. and Obese. Skin: Skin color, texture, turgor normal, no suspicious rashes or lesions. Head: Normocephalic, no masses, lesions, tenderness or abnormalities. Eyes: Anicteric sclera. Pupils are equally round and reactive to light. Extraocular movements are intact. . Ears: External ears normal, canals clear, TMs pearly barnett. Nose/Sinuses: (more content not included)... Normal [facility] 01-31-2025 CNPN Telephone (4CQ) MICHAEL CASTRO ([id number]) 1985 F Date Time Provider Department 01/31/25 ANKUR SEARS 4CQ During your visit today, we recorded the following information about you: Ankur Sears, PSS 01/31/2025 11:41 AM Signed Patient was referred to Hematology by Shena Dywer for Iron deficiency anemia, unspecified iron deficiency anemia type [D50.9]; Weight loss [R63.4]. Please advise. Kala Kay 01/31/2025 12:30 PM Signed This has been scheduled for02/10, date and time per pt. Kala Kay Allergies As of Date: 01/31/2025 Noted Allergy Reaction DIAMOX (ACETAZOLAMIDE) 05/16/2016 14 - Other: See Comments Comments: Numbness in hands and feet Date Reviewed: 01/31/2025 Reviewed by: Sarah Evans LPN - Fully Assessed Prescriptions as of 01/31/2025 - acetaminophen (TYLENOL ARTHRITIS ORAL) Take 2 tablets by mouth two times a day as needed. - meloxicam (MOBIC) 15 mg tablet Take 1 tablet by mouth once daily. Meds Comments as of 04/08/2008: All medications reviewed today/April 08, 2008 Sara Akers Rn Problem List As Of Date 01/31/2025 Noted Resolved SUPERVIS NORMAL 1ST PREG [Z34.00] 04/08/2008 12/28/2008 THRT [facility]-ANTEPART [O47.00] 10/04/2008 12/28/2008 Pain in joint, ankle and foot [M25.579] 02/19/2012 Dyspareunia [BWG3355] 04/05/2013 Muscle spasm [M62.838] 05/19/2013 Routine gynecological examination [Z01.419] 10/26/2014 Inflammatory polyarthropathy (HCC) [M06.4] 02/10/2014 Vitamin D deficiency [E55.9] 02/10/2014 MVP (mitral valve prolapse) [I34.1] 02/10/2014 Valvular heart disease [I38] 02/10/2014 Well adult exam [Z00.00] 08/04/2014 NSAID long-term use [Z79.1] 08/04/2014 Morbid obesity (HCC) [E66.01] 08/04/2014 Pseudotumor cerebri [G93.2] 11/14/2015 Menorrhagia with regular cycle [N92.0] 05/16/2016 04/28/2017 Encounter for screening for cardiovascular diso*05/16/2016 History of delivery, currently pregnan*12/12/2016 08/12/2017 History of labor [Z87.51] 12/12/2016 08/12/2017 Family history of genetic disease [Z84.89] 12/12/2016 Nausea and vomiting during [O21.9] 12/12/2016 08/12/2017 History of mitral valve disorder [Z86.79] 12/12/2016 Patient requested diagnostic testing [Z01.89] 12/12/2016 01/14/2017 Request for sterilization [Z30.2] 05/09/2017 08/12/2017 History of 2019 novel coronavirus disease (COVI*11/01/2020 Low iron [E61.1] 01/23/2021 Right hip pain [M25.551] 06/25/2021 Anxiety with depression [F41.8] 06/25/2021 GERD without esophagitis [K21.9] 06/25/2021 Elevated hemoglobin A1c [R73.09] 07/26/2021 Acute pain of both hips [M25.551, M25.552] 03/01/2022 Medication management [Z79.899] 03/01/2022 Iron deficiency anemia [D50.9] 10/24/2022 Arthritis of right hip [M16.11] 12/30/2024 Encounter Status:Closed by KALA KAY on 01/31/25 Normal [facility] Comprehensive metabolic 2000 panelon 01-31-2025 Albumin [Mass/Vol] 4.5 g/dL Normal 3.9-4.9 [facility] Comment on above: Order Comment: Speci men Type: BLOOD SPECIMENOrdering Facility: [facility] Address: [address] [place] [address] [place] [address] Performed By: #### 2 4323-8, 2132-9, 2284-8, LIPNF ####[facility] LABCLIA [id number] [place] [address] [place] ALP [Catalytic activity/Vol] 80 U/L Normal 34-123 [facility] Comment on above: Order Comment: Speci men Type: BLOOD SPECIMENOrdering Facility: [facility] Address: [address] [place] [address] Performed By: #### 2 4323-8, 2132-07, 2284-06, LIPNF ####[facility]CL[facility] [id number] [place] [address] [place] ALT [Catalytic activity/Vol] 14 U/L Normal 7-38 [facility] Comment on above: Order Comment: Speci men Type: BLOOD SPECIMENOrdering Facility: [facility] Address: [address] [place] [address] Performed By: #### 2 432-8, 2132-07, 2284-06, LIPNF ####[facility]CLIA [id number] [place] [address] [place] Anion gap [Moles/Vol] 12 mmol/L Normal 8-15 [facility] Comment on above: Order Comment: Speci men Type: BLOOD SPECIMENOrdering Facility: [facility] Address: [address] [place] [address] Performed By: #### 2 432-8, 2132-07, 2284-06, LIPNF ####[facility]CLIA [id number] [place] [address] [place] AST [Catalytic activity/Vol] 15 U/L Normal 13-35 [facility] Comment on above: Order Comment: Speci men Type: BLOOD SPECIMENOrdering Facility: [facility] Address: [address] [place] [address] Performed By: #### 2 4323-8, 2132-07, 2284-06, LIPNF ####[facility]CL[facility] [id number] [address] [address] [place] Bilirubin [Mass/Vol] 0.4 mg/dL Normal 0.2-1.3 [facility] Comment on above: Order Comment: Speci men Type: BLOOD SPECIMENOrdering Facility: [facility] Address: [address] [place] [address] Performed By: #### 2 4323-8, 2132-07, 2284-06, LIPNF ####[facility] [id number] [address] [address] [place] Calcium [Mass/Vol] 9.2 mg/dL Normal 8.5-10.2 [facility] Comment on above: Order Comment: Speci men Type: BLOOD SPECIMENOrdering Facility: [facility] Address: [address] [place], [place] [address] Performed By: #### 2 4323-8, 2132-07, 2284-06, LIPNF ####[facility]CL[facility] [id number] [address] [address] [place] Chloride [Moles/Vol] 101 mmol/L Normal 98-107 [facility] Comment on above: Order Comment: Speci men Type: BLOOD SPECIMENOrdering Facility: [facility] Address: [address] [place] [address] Performed By: #### 2 432-8, 2132-07, 2284-06, LIPNF ####[facility]CL[facility] [id number] [address] [address] [place] CO2 [Moles/Vol] 26 mmol/L Normal 22-30 [facility] Comment on above: Order Comment: Speci men Type: BLOOD SPECIMENOrdering Facility: [facility] Address: [address] [place] [address] Performed By: #### 2 4323-8, 2132-07, 2284-06, LIPNF ####[facility]CL[facility] [id number] [address] [address] [place] Creatinine [Mass/Vol] 0.78 mg/dL Normal 0.58-0.96 [facility] Comment on above: Order Comment: Speci men Type: BLOOD SPECIMENOrdering Facility: [facility] Address: [address] [place] [address] Performed By: #### 2 4323-8, 2131-9, 8, LIPNF ####[facility]CLIA [id number] [place] [address] [place] Creatinine and Glomerular filtration rate.predicted panel (S/P/Bld) 98 mL/min/1.73m??? Normal >=60 [facility] Comment on above: Order Comment: Demetrio kenneth Type: BLOOD SPECIMENOrdering Facility: [facility] Address: [address] [place] [address] Result Comment: Brandy mated Glomerular Filtration Rate (eGFR) is calculated using the 2020 CKD-EPI creatinine equation. This equation utilizes serum creatinine, sex, and age as parameters. The creatinine assay has traceable calibration to isotope dilution-mass spectrometry. Refer to KDIGO guidelines for clinical interpretation. In patients with unstable renal function, e.g. those with acute kidney injury, the eGFR may not accurately reflect actual GFR. Performed By: #### 2 4323-8, 2131-9, 8, LIPNF ####[facility] LABCLIA [id number] [place] [address] [place] Glucose [Mass/Vol] 79 mg/dL Normal 74-99 [facility] Comment on above: Order Comment: Demetrio kenneht Type: BLOOD SPECIMENOrdering Facility: [facility] Address: [address] [place] [address] Result Comment: The [place] Diabetes Association (ADA) provides guidance for cutoff values for fasting glucose and random glucose. The ADA defines fasting as no caloric intake for at least 8 hours. Fasting plasma glucose results between 100 to 125 mg/dL indicate increased risk for diabetes (prediabetes). Fasting plasma glucose results greater than or equal to 126 mg/dL meet the criteria for diagnosis of diabetes. In the absence of unequivocal hyperglycemia, results should be confirmed by repeat testing. In a patient with classic symptoms of hyperglycemia or hyperglycemic crisis, random plasma glucose results greater than or equal to 200 mg/dL meet the criteria for diagnosis of diabetes. Reference: Standards of Medical Care in Diabetes 2016, [place] Diabetes Association. Diabetes Care. 2016.39(Suppl 1). Performed By: #### 2 3-8, 2132-07, 2284-06, LIPNF ####[facility]CLIA [id number] [address] [place] [address] [place] Potassium [Moles/Vol] 4.5 mmol/L Normal 3.7-5.1 [facility] Comment on above: Order Comment: Speci men Type: BLOOD SPECIMENOrdering Facility: [facility] Address: [address] [place], [place] [address] Performed By: #### 2 4323-8, 2132-07, 2284-06, LIPNF ####[facility]CL[facility] [id number] [address] [address] [place] Protein [Mass/Vol] 7.5 g/dL Normal 6.3-8.0 [facility] Comment on above: Order Comment: Speci men Type: BLOOD SPECIMENOrdering Facility: [facility] Address: [address] [place], [place] [address] Performed By: #### 2 432-8, 2132-07, 2284-06, LIPNF ####[facility] LABIA [id number] [address] [address] [place] Sodium [Moles/Vol] 139 mmol/L Normal 136-144 [facility] Comment on above: Order Comment: Speci men Type: BLOOD SPECIMENOrdering Facility: [facility] Address: [address] [place] [address] Performed By: #### 2 4323-8, 2132-07, 2284-06, LIPNF ####[facility]CL[facility] [id number] [address] [address] [place] Urea nitrogen [Mass/Vol] 13 mg/dL Normal 7-21 [facility] Comment on above: Order Comment: Speci men Type: BLOOD SPECIMENOrdering Facility: [facility] Address: [address] [place] [address] Performed By: #### 2 4323-8, 9, 2284-06, LIPNF ####[facility] LABIA [id number] [address] [address] [place] Folate SerPl-mCncon 02-01-20 25 Folate [Mass/Vol] 8.7 ng/mL Normal >4.7 [facility] Comment on above: Order Comment: Demetrio men Type: BLOOD SPECIMENOrdering Facility: [facility] Address: [address] [place] [address] Performed By: #### 2 4323-8, 2132-07, 2284-06, LIPNF ####[facility] LABIA [id number] [address] [place] [address] [place] HbA1c (Bld)on 01-31-2025 Average glucose Estimated from glycated hemoglobin (Bld) [Mass/Vol] 114 mg/dL Normal [facility] Comment on above: Order Comment: Demetrio cooper Type: BLOOD SPECIMENOrdering Facility: [facility] Address: [address] [place] [address] Result Comment: eAG: (Estimated average glucose) is a calculated value from HgbA1c and is accounts payable representative of the average blood glucose level in the last 2-3 month period. Performed By: #### 5 5454-3 ####[facility] [id number] [place] [id number] [place] [facility] HbA1c (Bld) [Mass fraction] 5.6 % Normal 4.3-5.6 [facility] Comment on above: Order Comment: Demetrio cooper Type: BLOOD SPECIMENOrdering Facility: [facility] Address: [address] [place] [address] Result Comment: [place] Diabetes Association guidelines indicate that patients with HgbA1c in the range 5.7-6.4% are at increased risk for development of diabetes, and intervention by lifestyle modification may be beneficial. HgbA1c greater or equal to 6.5% is considered diagnostic of diabetes. Performed By: #### 5 5454-3 ####[facility]CLIA [id number] [place] [address] [place] LIPID PANEL, NONFASTINGon Cholesterol [Mass/Vol] 200 mg/dL High <200 [facility] Comment on above: Order Comment: Speci men Type: BLOOD SPECIMENOrdering Facility: [facility] Address: [address] [place] [address] Result Comment: <200 mg/dL, Desirable 200-239 mg/dL, Borderline high >239 mg/dL, High Performed By: #### 2 4323-8, 2132-07, 2284-06, LIPNF ####[facility]CLIA [id number] [address] STATES OF [facility] HDL CHOLESTEROL, NF 63 mg/dL Normal >39 [facility] Comment on above: Order Comment: Speci men Type: BLOOD SPECIMENOrdering Facility: [facility] Address: [address] [place] [address] Result Comment: 40-5 9 mg/dL, Acceptable >59 mg/dL, High: Negative risk factor for coronary heart disease <40 mg/dL, Low: Positive risk factor for coronary heart disease Performed By: #### 2 4323-8, 2132-07, 2284-06, LIPNF ####[facility] LABIA [id number] [place] [address] [place] LDL CHOLESTEROL, NF 120 mg/dL High <100 [facility] Comment on above: Order Comment: Speci [facility] Type: BLOOD SPECIMENOrdering Facility: [facility] Address: [address] [place] [address] Result Comment: <100 mg/dL, Optimal 100-129 mg/dL, Near optimal/above optimal 130-159 mg/dL, Borderline high 160-189 mg/dL, High >189 mg/dL, Very high Secondary prevention optimal LDL Cholesterol levels are recommended to be < 70 mg/dL Performed By: #### 2 3-8, 2132-07, 2284-06, LIPNF ####[facility]CLIA [id number] [address] [address] [place] LDL/HDL RATIO, NF 1.90 mg/dL Normal <2.54 [facility] Comment on above: Order Comment: Speci men Type: BLOOD SPECIMENOrdering Facility: [facility] Address: [address] [place] [address] Result Comment: Refe rence: 1. National Cholesterol Education Program ATP III Guideline At-A-Glance Quick Desk Reference: National Heart, Lung, and Blood Bowdle. National Institutes of Health. 2001: NIH Publication No. 01-3305. 2. An International Atherosclerosis Society position paper: global recommendations for the management of dyslipidemia: executive summary, Atherosclerosis. 2014: 232(2):410-413. Performed By: #### 2 3-8, 2132-07, 2284-06, LIPNF ####[facility] LABIA [id number] [place] [address] [place] NON HDL CHOL, NF 137 mg/dL High <130 [facility] Comment on above: Order Comment: Speci men Type: BLOOD SPECIMENOrdering Facility: [facility] Address: [address] [place] [address] Result Comment: <130 mg/dL, Optimal 130-159 mg/dL, Near optimal/above optimal 160-189 mg/dL, Borderline high 190-219 mg/dL, High >219 mg/dL, Very high Secondary prevention optimal non HDL Cholesterol levels are recommended to be <100 mg/dL Performed By: #### 2 4323-8, 9, 2284-06, LIPNF ####[facility] LABIA [id number] [address] [address] [place] T CHOL/HDL RATIO NF 3.17 mg/dL Normal <5.10 [facility] Comment on above: Order Comment: Speci men Type: BLOOD SPECIMENOrdering Facility: [facility] Address: [address] [place] [address] Performed By: #### 2 4323-8, 9, 2284-06, LIPNF ####[facility] LABCLIA [id number] [facility] [address] [place] [address] [place] TRIGLYCERIDES, NF 86 mg/dL Normal <150 [facility] Comment on above: Order Comment: Speci men Type: BLOOD SPECIMENOrdering Facility: [facility] Address: [address] [place] [address] Result Comment: <150 mg/dL, Normal 150-199 mg/dL, Borderline high 200-499 mg/dL, High >499 mg/dL, Very high Performed By: #### 2 4323-8, 9, 2284-06, LIPNF ####[facility]CLIA [id number] [address], [facility] [place] VLDL CHOLESTEROL, NF 17 mg/dL Normal <30 [facility] Comment on above: Order Comment: Speci men Type: BLOOD SPECIMENOrdering Facility: [facility] Address: [address] [place] [address] Performed By: #### 2 4323-8, 9, 2284-06, LIPNF ####[facility] LABCLIA [id number] [place] [address] [place] Urinalysis complete panel (U )on 01-31-2025 BACTERIA UL 3634.2 uL High Negative [facility] Comment on above: Order Comment: Speci men Type: URINE SPECIMENOrdering Facility: [facility] Address: [address] [place] [address] Performed By: #### 2 4356-8 ####[facility] LABCLIA [id number] [place] [id number] [place] Bilirubin Ql (U) Negative Normal Negative [facility] Comment on above: Order Comment: Speci men Type: URINE SPECIMENOrdering Facility: [facility] Address: [address] [place] [address] Performed By: #### 2 4356-8 ####[facility]CL[facility] [id number] [place] [address] [place] Clarity (Unsp spec) Clear Normal Clear [facility] Comment on above: Order Comment: Speci men Type: URINE SPECIMENOrdering Facility: [facility] Address: [address] [place] [address] Performed By: #### 2 4356-8 ####[facility]CL[facility] [id number] [place] [address] [place] Color (U) Yellow Normal Yellow [facility] Comment on above: Order Comment: Speci men Type: URINE SPECIMENOrdering Facility: [facility] Address: [address] [place] [address] Performed By: #### 2 4356-8 ####[facility] LABIA [id number] [place] [address] [place] Epithelial cells LM.HPF (Urine sed) [#/Area] Moderate Normal [facility] Comment on above: Order Comment: Speci men Type: URINE SPECIMENOrdering Facility: [facility] Address: [address] [place] [address] Performed By: #### 2 4356-8 ####[facility] LABCLIA [id number] [place] [address] [place] Glucose Test strip (U) [Mass/Vol] Negative Normal Negative [facility] Comment on above: Order Comment: Speci men Type: URINE SPECIMENOrdering Facility: [facility] Address: [address] [place] [address] Performed By: #### 2 4356-8 ####[facility] LABCLIA [id number] [place] [id number] [place] Hemoglobin Ql (U) Negative Normal Negative [facility] Comment on above: Order Comment: Speci men Type: URINE SPECIMENOrdering Facility: [facility] Address: [address] [place] [address] Performed By: #### 2 4356-8 ####[facility]CLIA [id number] [address], [place] [address] [place] Hyaline casts (Urine sed) [#/Area] 0 /[LPF] Normal 0 /LPF [facility] Comment on above: Order Comment: Speci men Type: URINE SPECIMENOrdering Facility: [facility] Address: [address] [place] [address] Performed By: #### 2 4356-8 ####[facility]CLIA [id number] [place] [address] [place] Ketones Ql (U) Negative Normal Negative [facility] Comment on above: Order Comment: Speci men Type: URINE SPECIMENOrdering Facility: [facility] Address: [address] [place] [address] Performed By: #### 2 4356-8 ####[facility]CLIA [id number] [address], [place] [address] [place] Leukocyte esterase Test strip Ql (U) Negative Normal Negative [facility] Comment on above: Order Comment: Speci men Type: URINE SPECIMENOrdering Facility: [facility] Address: [address] [place] [address] Performed By: #### 2 4356-8 ####[facility] LABCLIA [id number] [place] [id number] [place] Nitrite Ql (U) Negative Normal Negative [facility] Comment on above: Order Comment: Speci men Type: URINE SPECIMENOrdering Facility: [facility] Address: [address] [place] [address] Performed By: #### 2 4356-8 ####[facility] LABCLIA [id number] [place] [id number] [place] pH (U) 6.0 [pH] Normal <8.5 [facility] Comment on above: Order Comment: Speci men Type: URINE SPECIMENOrdering Facility: [facility] Address: [address] [place] [address] Performed By: #### 2 4356-8 ####[facility] LABIA [id number] [place] [address] [place] Protein (U) [Mass/Vol] Negative Normal Negative [facility] Comment on above: Order Comment: Speci men Type: URINE SPECIMENOrdering Facility: [facility] Address: [address] [place] [address] Performed By: #### 2 4356-8 ####[facility] [id number] [place] [address] [place] RBC LM.HPF (Urine sed) [#/Area] 0-2 /HPF Normal 0-2 /HPF [facility] Comment on above: Order Comment: Speci men Type: URINE SPECIMENOrdering Facility: [facility] Address: [address] [place] [address] Performed By: #### 2 4356-8 ####[facility] [id number] [place] [address] [place] Specific gravity (U) [Rel density] 1.025 Normal 1.005-1.030 [facility] Comment on above: Order Comment: Speci men Type: URINE SPECIMENOrdering Facility: [facility] Address: [address] [place] [address] Performed By: #### 2 4356-8 ####[facility] LABIA [id number] [place] [address] [place] Urobilinogen Ql (U) 0.2 EU/dL Normal 0.2-1.0 EU/dL [facility] Comment on above: Order Comment: Speci men Type: URINE SPECIMENOrdering Facility: [facility] Address: [address] [place] [address] Performed By: #### 2 4356-8 ####[facility] LABCLIA [id number] [place] [id number] [place] WBC LM.HPF (Urine sed) [#/Area] 0-5 /HPF Normal 0-5 /HPF [facility] Comment on above: Order Comment: Speci men Type: URINE SPECIMENOrdering Facility: [facility] Address: [address] [place] [address] Performed By: #### 2 4356-8 ####[facility]CL[facility] [id number] [address] [address] [place] Vit B12 SerPl-mCncon 025 Cobalamin (Vitamin B12) [Mass/Vol] 984 pg/mL Normal 232-1245 [facility] Comment on above: Order Comment: Speci men Type: BLOOD SPECIMENOrdering Facility: [facility] Address: [address] [place] [address] Performed By: #### 2 4323-8, 2132-9, 2284-8, LIPNF ####[facility] [id number] [place] [id number] [place] Inj/Asp Jarett Jt Should/Hip/Kn eeon 01-27-2025 Inj/Asp Jarett Jt Should/Hip/Knee [facility] [address] [place] [id number] Inj/Asp Jarett Jt Should/Hip/Knee MR#: [id number] Acct: [id number] Name: MICHAEL CASTRO Rep #: [id number] : 1985 F 39 From: Flavio Cloud MD PCP: Care Physician,No Primary Status: REG CLI Study: Inj/Asp Jarett Jt Should/Hip/Knee Date of Exam: 0 01/27/25 Exam# [id number] Ordering Dr: Erick Brownlee MD PROCEDURE: RIGHT HIP INJECTION UNDER FLUOROSCOPY REASON FOR EXAM: RIGHT HIP PAIN. OSTEOARTHRITIS. NO KNOWN INJURY. TECHNIQUE: I was the proctoring radiologist for Nati Carrillo NP during this hip injection procedure. An overview of the procedure with the patient occurred in the imaging suite. The patient was given ample opportunity to ask questions regarding the procedure. The patient signed the informed consent form. The patient was positioned on the fluoroscopic table in the supine position. The needle puncture site was marked under fluoroscopy. Sterile preparation of the skin was performed as usual. Local anesthesia was accomplished with lidocaine 2%. A 25 gauge, 3-1/2 inch spinal needle was then advanced through the skin until the needle tip touched the hip cortex. A small amount of Isovue-300 contrast was injected to document appropriate position of the needle in the joint capsule. Following documentation of the needle tip position, a mixture of 2 mL (80 mg) Kenalog and 3 mL of 0.5% bupivicaine was injected into the joint capsule. COMPARISON: None. FINDINGS: Unremarkable hip injection under fluoroscopy. RAD/Inj/Asp Jarett Jt Should/Hip/Knee IMPRESSION: 1. SUCCESSFUL RIGHT HIP INJECTION under fluoroscopy as detailed above. Patient tolerated the procedure well. Thank you for this referral. Reading Location: [place] [address] CC: Dr. Erick Brownlee MD; No Primary Care Physician Director Of Partner Marketing: Signed Normal [facility] 01-24-2025 Indication Abnormal uterine bleeding Impression Anteverted cervix, axial fundus fibroid uterus that measures 107 mm x 45 mm x 58 mm. The largest fibroids are described below. Fibroid(s): Size 11 mm x 11 mm x 13 mm. Mean 11.7 mm. Vol 0.824 cm . Left lateral posterior wall. Subserous Endometrium measures 4 mm. Both ovaries are visualized and appear normal with follicular change. No adnexal masses were observed. There is no free fluid visualized in the peritoneal cavity. Recommendations Follow up as clinically indicated. History Medical History Surgery: section x 2 Surgery: Tubal ligation Menstrual History LMP on 01/17/2025. Cycle: irregular cycle. Contraception: tubal sterilization Method Transabdominal, transvaginal, 3D ultrasound examination, Color Doppler examination. View: Suboptimal view: due to axial uterine orientation Uterus Uterus: Visualized Uterus position: anteverted cervix, axial fundus Description of uterine malformations: none Myometrium: heterogeneous Endometrium: homogenous, borders of the endo not well defined Cervix details: cystic lesions identified suggesting superficial Nabothian cysts Uterus length 107 mm Uterus width 58 mm Uterus height 45 mm Uterus Vol 147.0 cm Endometrial thickness, total 4.0 mm Fibroids: Fibroids identified Uterine fibroid D1 11 mm Uterine fibroid D2 11 mm Uterine fibroid D3 13 mm Uterine fibroid mean 11.7 mm Uterine fibroid vol 0.824 cm Uterine fibroids findings: Left lateral posterior wall. Subserous Right Ovary Rt ovary: Visualized Rt ovary morphology: premenopausal normal follicular Rt ovary D1 33 mm Rt ovary D2 17 mm Rt ovary D3 14 mm Rt ovary Vol 4.0 cm Left Ovary Lt ovary: Visualized Lt ovary morphology: premenopausal normal follicular Lt ovary D1 32 mm Lt ovary D2 30 mm Lt ovary D3 19 mm Lt ovary Vol 9.6 cm Cul de Sac Visualized. no free fluid visualized Performed By: Sarah Duggan RDMS Read By: Ela Croft M.D. MATERNAL MEDICINE [facility] US [place] 01-21-2025 Radiology Study observation (narrative) [facility] CBC W Auto Differential pane l (Bld)on 01-20-2025 Basophils (Bld) [#/Vol] 0.06 10*3/uL [facility] Basophils/100 WBC (Bld) 0.7 % [facility] Differential cell count method Nom (Bld) Auto [facility] Eosinophils (Bld) [#/Vol] 0.15 10*3/uL [facility] Eosinophils/100 WBC (Bld) 1.8 % [facility] Erythrocyte distribution width (RBC) [Ratio] 18.3 % High 11.5 - 15.0 % [facility] Hematocrit (Bld) [Volume fraction] 32.4 % Low 36.0 - 46.0 % [facility] Hemoglobin (Bld) [Mass/Vol] 9.6 g/dL Low 11.5 - 15.5 g/dL [facility] Immature granulocytes (Bld) [#/Vol] [facility] Immature granulocytes/100 WBC (Bld) 0.2 % [facility] Interpretation and review of laboratory results Abnormal [facility] Lymphocytes (Bld) [#/Vol] 2.16 10*3/uL [facility] Lymphocytes/100 WBC (Bld) 25.4 % [facility] MCH (RBC) [Entitic mass] 22.4 pg Low 26.0 - 34.0 pg [facility] MCHC (RBC) [Mass/Vol] 29.6 g/dL Low 30.5 - 36.0 g/dL [facility] MCV (RBC) [Entitic vol] 75.5 fL Low 80.0 - 100.0 fL [facility] Monocytes (Bld) [#/Vol] 0.59 10*3/uL [facility] Monocytes/100 WBC (Bld) 6.9 % [facility] Neutrophils (Bld) [#/Vol] 5.52 10*3/uL [facility] Neutrophils/100 WBC (Bld) 65 % [facility] Nucleated RBC (Bld) [#/Vol] NINF [facility] Nucleated RBC/100 WBC (Bld) [Ratio] 0 % /100 WBC [facility] Platelet mean volume (Bld) [Entitic vol] 9.8 fL 9.0 - 12.7 fL [facility] Platelets (Bld) [#/Vol] 454 10*3/uL High [facility] RBC (Bld) [#/Vol] 4.29 10*6/uL 3.90 - 5.2 0 m/uL [facility] WBC (Bld) [#/Vol] 8.5 10*3/uL [facility] Basophils (Bld) [#/Vol] 0.06 10*3/uL Normal <0.11 [facility] Comment on above: Order Comment: Speci men Type: BLOOD SPECIMENOrdering Facility: [facility] Address: [address] [place] [address] Performed By: #### 5 7021-8 ####[facility] [id number] [address] STATES OF [facility] Basophils/100 WBC (Bld) 0.7 % Normal C [facility] Comment on above: Order Comment: Speci men Type: BLOOD SPECIMENOrdering Facility: [facility] Address: [address] [place] [address] Performed By: #### 5 7021-8 ####[facility] [id number] [place] [address] [place] Differential cell count method Nom (Bld) Auto Normal [facility] Comment on above: Order Comment: Speci men Type: BLOOD SPECIMENOrdering Facility: [facility] Address: [address] [place] [address] Performed By: #### 5 7021-8 ####[facility] [id number] [place] [address] [place] Eosinophils (Bld) [#/Vol] 0.15 10*3/uL Normal <0.46 [facility] Comment on above: Order Comment: Speci men Type: BLOOD SPECIMENOrdering Facility: [facility] Address: [address] [place] [address] Performed By: #### 5 7021-8 ####[facility] [id number] [place] [address] [place] Eosinophils/100 WBC (Bld) 1.8 % Normal [facility] Comment on above: Order Comment: Speci men Type: BLOOD SPECIMENOrdering Facility: [facility] Address: [address] [place] [address] Performed By: #### 5 7021-8 ####[facility] [id number] [place] [address] [place] Erythrocyte distribution width (RBC) [Ratio] 18.3 % High 11.5-15.0 [facility] Comment on above: Order Comment: Speci men Type: BLOOD SPECIMENOrdering Facility: [facility] Address: [address] [place] [address] Performed By: #### 5 7021-8 ####[facility] [id number] [place] [address] [place] Hematocrit (Bld) [Volume fraction] 32.4 % Low 36.0-46.0 [facility] Comment on above: Order Comment: Speci men Type: BLOOD SPECIMENOrdering Facility: [facility] Address: [address] [place] [address] Performed By: #### 5 7021-8 ####[facility] [id number] [place] [address] [place] Hemoglobin (Bld) [Mass/Vol] 9.6 g/dL Low 11.5-15.5 [facility] Comment on above: Order Comment: Speci men Type: BLOOD SPECIMENOrdering Facility: [facility] Address: [address] [place] [address] Performed By: #### 5 7021-8 ####[facility] [id number] [place] [address] [place] Immature granulocytes (Bld) [#/Vol] 10*3/uL Normal <0.10 [facility] Comment on above: Order Comment: Speci men Type: BLOOD SPECIMENOrdering Facility: [facility] Address: [address] [place] [address] Performed By: #### 5 7021-8 ####[facility] [id number] [place] [address] [place] Immature granulocytes/100 WBC (Bld) 0.2 % Normal [facility] Comment on above: Order Comment: Speci men Type: BLOOD SPECIMENOrdering Facility: [facility] Address: [address] [place] [address] Performed By: #### 5 7021-8 ####[facility] HOSPITALLIA [id number] [place] [address] [place] Lymphocytes (Bld) [#/Vol] 2.16 10*3/uL Normal 1.00-4.00 [facility] Comment on above: Order Comment: Speci men Type: BLOOD SPECIMENOrdering Facility: [facility] Address: [address] [place] [address] Performed By: #### 5 7021-8 ####[facility] HALLEVICKYA [id number] [place] [address] [place] Lymphocytes/100 WBC (Bld) 25.4 % Normal [facility] Comment on above: Order Comment: Speci men Type: BLOOD SPECIMENOrdering Facility: [facility] Address: [address] [place] [address] Performed By: #### 5 7021-8 ####[facility]OSPITALGARCIASHAI [id number] [place] [address] [place] MCH (RBC) [Entitic mass] 22.4 pg Low 26.0-34.0 [facility] Comment on above: Order Comment: Speci men Type: BLOOD SPECIMENOrdering Facility: [facility] Address: [address] [place] [address] Performed By: #### 5 7021-8 ####[facility] HOSPITALGARCIASeema [id number] [place] [address] [place] MCHC (RBC) [Mass/Vol] 29.6 g/dL Low 30.5-36.0 Enrique [facility] Comment on above: Order Comment: Speci men Type: BLOOD SPECIMENOrdering Facility: [facility] Address: [address] [place] [address] Performed By: #### 5 7021-8 ####[facility]ITALJOSH [id number] [place] [address] [place] MCV (RBC) [Entitic vol] 75.5 fL Low 80.0-100.[address] [facility] Comment on above: Order Comment: Speci men Type: BLOOD SPECIMENOrdering Facility: [facility] Address: [address] [place] [address] Performed By: #### 5 7021-8 ####[facility] HOSPITALNCLIA [id number] [place] [address] [place] Monocytes (Bld) [#/Vol] 0.59 10*3/uL Normal <0.87 [facility] Comment on above: Order Comment: Speci men Type: BLOOD SPECIMENOrdering Facility: [facility] Address: [address] [place] [address] Performed By: #### 5 7021-8 ####[facility] HOSPITALNCA [id number] [place] [address] [place] Monocytes/100 WBC (Bld) 6.9 % Normal [facility] Comment on above: Order Comment: Speci men Type: BLOOD SPECIMENOrdering Facility: [facility] Address: [address] [place] [address] Performed By: #### 5 7021-8 ####[facility] HOSPITALNCLI [id number] [place] [address] [place] Neutrophils (Bld) [#/Vol] 5.52 10*3/uL Normal 1.45-7.50 [facility] Comment on above: Order Comment: Speci men Type: BLOOD SPECIMENOrdering Facility: [facility] Address: [address] [place] [address] Performed By: #### 5 7021-8 ####[facility] [id number] [place] [address] [place] Neutrophils/100 WBC (Bld) 65.0 % Normal [facility] Comment on above: Order Comment: Speci men Type: BLOOD SPECIMENOrdering Facility: [facility] Address: [address] [place] [address] Performed By: #### 5 7021-8 ####[facility]ITALNCLIA [id number] [place] [address] [place] Nucleated RBC (Bld) [#/Vol] 10*3/uL Normal <0.01 [facility] Comment on above: Order Comment: Speci men Type: BLOOD SPECIMENOrdering Facility: [facility] Address: [address] [place] [address] Performed By: #### 5 7021-8 ####[facility] [id number] [place] [address] [place] Nucleated RBC/100 WBC (Bld) [Ratio] 0.0 /100 WBC Normal [facility] Comment on above: Order Comment: Speci men Type: BLOOD SPECIMENOrdering Facility: [facility] Address: [address] [place] [address] Performed By: #### 5 7021-8 ####[facility] HALLEALIQUIPPANCLIA [id number] [place] [address] [place] Platelet mean volume (Bld) [Entitic vol] 9.8 fL Normal 9.0-12.7 [facility] Comment on above: Order Comment: Speci men Type: BLOOD SPECIMENOrdering Facility: [facility] Address: [address] [place] [address] Performed By: #### 5 7021-8 ####[facility]ITALNCLIA [id number] [place] [address] [place] Platelets (Bld) [#/Vol] 454 10*3/uL High 150-400 [facility] Comment on above: Order Comment: Speci men Type: BLOOD SPECIMENOrdering Facility: [facility] Address: [address] [place] [address] Performed By: #### 5 7021-8 ####[facility]ITALNCLIA [id number] [place] [address] [place] RBC (Bld) [#/Vol] 4.29 10*6/uL Normal 3.90-5.20 [facility] Comment on above: Order Comment: Speci men Type: BLOOD SPECIMENOrdering Facility: [facility] Address: [address] [place] [address] Performed By: #### 5 7021-8 ####[facility] ISA MILLTOWNCLIA [id number] [place] [address] [place] WBC (Bld) [#/Vol] 8.50 10*3/uL Normal 3.70-11.00 [facility] Comment on above: Order Comment: Speci men Type: BLOOD SPECIMENOrdering Facility: [facility] Address: [address] [place] [address] Performed By: #### 5 7021-8 ####[facility] ISAALECIA NERITOWNCLIA [id number] [place], [place] [id number] [place] [address] [place] CNOVon 01-20-2025 CNOV Office Visit (OBGYWM ) MICHAEL CASTRO ([id number]) 1985 F Date Time Provider Department 01/20/25 8:30 AM MINE DOTY During your visit today, we recorded the following information about you: Blood pressure Weight Height Last Period 124/82 104.8 kg 1.562 m 01/18/25 Mine Doty MD 01/20/2025 10:13 AM Signed Michael Lucioparas is a 39 year old female who presents for problem visit. HPI: Patient presents with menses concerns. Last 2 menses were 12/26 and then 01/17. Menses are about every 3 weeks since July. Menses last about 5 days. Flow is heavy and she changes a pad every 2-4 hours. Patient also reports pain with menses and orgasm. She reports feeling drained. Her iron levels are low. OB History Gravida4 Para2 Term1 Preterm1 AB2 Living2 SAB1 IAB0 Ectopic0 Multiple0 Live Births2 Convex Grinder History LMP: 01/18/2025 (Exact Date), Having periods Age at Menarche: 8 Age at First : Age at Menopause: Convex Grinder History Comments: Sexual Activity: Yes; Male; one clean tatoo, no transfusions Contraception: Tubal Ligation Menstrual Tracking History Flowsheet Row Office Visit from 01/20/2025 in OB/Gynecology Period Cycle (Days) 6 Period Duration (Days) 6 Menstrual Flow Heavy PAST MEDICAL HISTORY Diagnosis Date Acute pain of both hips 03/01/2022 Cymbalta has helped. Anxiety with depression 06/25/2021 Arthritis of right hip 12/30/2024 X-ray 12/2024: mild Elevated hemoglobin A1c 07/26/2021 GERD without esophagitis 06/25/2021 Hip pain 07/11/2014 History of 2019 novel coronavirus disease (COVID-19) 11/01/2020 10/27/2020 Inflammatory polyarthropathy (HCC) 02/10/[address] Sandoval Iron deficiency anemia 10/24/2022 Low iron 01/23/2021 Muscle spasm 05/19/2013 MVP (mitral valve prolapse) 02/10/2014 On 2 D echo 01/2014 Pain in joint, ankle and foot 02/19/2012 Pseudotumor cerebri Right hip pain 06/25/2021 Saw Ortho (Dr. Brownlee) Told bone on bone. Routine gynecological examination Dr Doty Valvular heart disease 02/10/2014 2D echo 01/2014: 1+ MVI and TI Vitamin D deficiency 02/10/2014 PAST SURGICAL HISTORY Procedure Laterality Date 2D ECHO (EXEP) ''2013 EF=60%, mild MVP, +1 MVI and TI DELIVERY ONLY , low cervical DELIVERY ONLY 07/07/2017 LIGATE FALLOPIAN TUBE 2017 at csection PAST SURGICAL HISTORY OF 08/2000 TENDON REPAIR RIGHT WRIST STRESS ECHO 02/13/2021 normal TONSILLECTOMY PRIMARY/SECONDARY Tonsillectomy FAMILY HISTORY Problem Relation Age of Onset Seizures Mother tonic-clonic, quiescent off medication No Known Problems Father Diabetes Maternal Grandfather Hypertension Maternal Grandfather Heart Maternal Grandfather had a difibulator Hypertension Paternal Grandmother other (Other) Paternal Grandmother No breast/hand 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 meloxicam (MOBIC) 15 mg tablet Take 1 tablet by mouth once daily. No current facility-administered medications for this visit. Allergies As of Date: 01/20/2025 Allergen Noted Reaction DIAMOX [ACETAZOLAMIDE] 05/16/2016 Other: See Comments Fully Assessed 01/20/2025 Allergies and current medication updated:Yes SENSITIVE EXAM: Sensitive exam not performed. EXAM: BP 124/82 Ht 5' 1.5 (1.56m) Wt 231 lb (104.8kg) LMP 01/18/2025 BMI 42.95 kg/(m2). GENERAL: pleasant, female in no apparent distress ASSESSMENT AND PLAN: Assessment AND Plan Abnormal mammogram Orders: SARATH DIAGNOSTIC LEFT; Future US BREAST LTD LEFT; Future Abnormal uterine bleeding (AUB) Orders: PELVIC US WHI; Future IRON AND TIBC; Future FERRITIN; Future THYROID STIMULATING HORMONE; Future COMPLETE BLOOD COUNT AND DIFFERENTIAL; Future Malaise and fatigue Orders: IRON AND TIBC; Future FERRITIN; Future THYROID STIMULATING HORMONE; Future COMPLETE BLOOD COUNT AND DIFFERENTIAL; Future Pap AND pelvic exam at next visit. Medical Decision Making: Problems: Moderate: New problem with uncertain prognosis Data: Unique test(s) ordered: 3+ Risk: Low: Low risk from testing/treatment Medical Decision Making Level: 4 - Moderate Mine Doty MD Allergies As of Date: 01/20/2025 Noted Allergy Reaction DIAMOX (ACETAZOLAMIDE) 05/16/2016 14 - Other: See Comments Comments: Numbness in hands and feet Date Reviewed: 01/20/2025 Reviewed by: Mine Doty MD - Fully Assessed Reason for Visit: excessive menses [Other] P (more content not included)... Normal [facility] Ferritin SerPl-mCncon 2024 Ferritin [Mass/Vol] 9.4 ng/mL Low 14.7-205.1 [facility] Comment on above: Order Comment: Speci men Type: BLOOD SPECIMENOrdering Facility: [facility] Address: [address] [place] [address] Performed By: #### 2 276-4, 06708-2, 3016-3 ####[facility] LABORATORYCLIA [id number] [place] [address] [place] Iron and Iron binding capaci ty panelon 01-20-2025 Iron [Mass/Vol] 24 ug/dL Low 41-186 [facility] Comment on above: Order Comment: Speci men Type: BLOOD SPECIMENOrdering Facility: [facility] Address: [address] [place] [address] Performed By: #### 2 276-4, 09344-0, 3016-3 ####[facility] LABORATORYCLIA [id number] [address] STATES [place] Iron binding capacity [Mass/Vol] 439 ug/dL High 232-386 [facility] Comment on above: Order Comment: Demetrio cooper Type: BLOOD SPECIMENOrdering Facility: [facility] Address: [address] [place] [address] Performed By: #### 2 276-4, 74620-4, 3016-3 ####[facility] LABORATORYCLIA [id number] [address] STATES [facility] Iron saturation [Mass fraction] 5.5 % Low 15.0-57.0 [facility] Comment on above: Order Comment: Speci men Type: BLOOD SPECIMENOrdering Facility: [facility] Address: [address] [place] [address] Performed By: #### 2 276-4, 05406-7, 3016-3 ####[facility] LABORATORYCLIA [id number] [place] [id number] [place] TSH SerPl-aCncon 01-20-2025 TSH Qn 0.985 m[IU]/L Normal 0.270-4.200 [facility] Comment on above: Order Comment: Speci men Type: BLOOD SPECIMENOrdering Facility: [facility] Address: [address] [place] [address] Result Comment: If t he patient is , TSH reference range varies by gestational period: First Trimester (weeks 9-12): 0.180-2.990 mIU/L Second Trimester: 0.110-3.980 mIU/L Third Trimester: 0.480-4.710 mIU/L Sivakumar Hidalgo et al. A Practical Approach for the Verifications and Determination of Site- and Trimester-Specific Reference Intervals for Thyroid Function tests in . Thyroid, 2019:29:3:412-420. Josiah Atkinson et al. 2017 Guidelines of the [place] [employer] for the Diagnosis and Management of Thyroid Disease during and the . Thyroid, 2017:27:3:315-389. Performed By: #### 2 276-4, 16151-8, 3016-3 ####[facility] LABORATORYCLIA [id number] [address] CNOVon 01-03-2025 CNOV Office Visit (ORTHWS ) MICHAEL CASTRO ([id number]) 1985 F Date Time Provider Department 01/03/25 2:15 PM ERICK BROWNLEE During your visit today, we recorded the following information about you: Erick Brownlee MD 01/17/2025 12:57 PM Signed Erick Brownlee MD Department of Orthopaedics Orthopaedics [address] [place] [address] Dept: [phone] Dept January 03, 2025 CHIEF COMPLAINT: New and Pain of the Right Hip (Referred by Dr Cruz /Last seen 07/11/14 Right ankle and hip pain) HPI Patient here for evaluation right hip pain. Patient states her pain is on the lateral aspect. Some days her hips are tight that she has difficulty sitting. 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 She does do a lot of heavy lifting at work. Her 16 year old daughter is a special needs child that weighs 88 pounds and has difficulty carrying her. Taking Mobic for the pain and feels helps her pain some. Feels it makes her pain duller. Has been getting monthly massages and feels those help as well. X-rays done on 12/28/24. ASSESSMENT: M16.11 Primary osteoarthritis of right hip (primary encounter diagnosis) M25.551, G89.29 Chronic right hip pain PLAN: Patient does have a bit of dysplasia and arthritic changes in the right hip. She would like to try a cortisone injection first. Will get her scheduled for that at the local hospital. FOLLOW UP INSTRUCTIONS: See how things respond to an initial injection. Will continue to monitor patient for Chronic right hip pain Primary osteoarthritis of right hip (primary encounter diagnosis), patient to schedule visit as per follow up discussed. Ms. Michael Castro was advised as to contrast therapies and/or to take analgesics/anti-infla mmatories as needed and all contraindications were reviewed. OBJECTIVE: Ms. Michael Castro is a pleasant 39 year old in no apparent distress. Gen:LMP 04/21/2022 nl development, obese, no deformities ENT: Normocephalic, normal hearing, moist mucosa CV: Pulses:Radial= 2+ and symmetric, capillary refill < 2 secs, no peripheral edema/varicosities Skin: no rash, bruising or lesions. Good turgor. Psych: cooperative and appropriate, alert and oriented x 3, good mood and affect. Musculoskeletal: Antalgia to the right. She has overall good range of motion but does have some pain with endrange of flexion and internal rotation of about 110 degrees and 25 degrees. IMAGING: Impression IMPRESSION: No acute osseous abnormality Director Of Partner Marketing: [facility] Transcribe Date/Time: Dec 30 2024 1:52P Dictated by : LILIYA DENTON MD This examination was interpreted and the report reviewed and electronically signed by: LILIYA DENTON MD on Dec 30 2024 1:54PM EST Results-Findings * * *Final Report* * * DATE OF EXAM: Dec 28 2024 2:25PM WOX [id number] - XR HIP 3V PELV+ AP/LAT RT / PROCEDURE REASON: multiple diagnoses * * * * Physician Interpretation * * * * EXAMINATION: XR HIP 3V PELV+ AP/LAT RT CLINICAL HISTORY: Chronic right hip pain Technique: XR HIP 3V PELV+ AP/LAT RT -- RIGHT with 3 views on 3 images Comparison: X-ray pelvis 03/07/2014 RESULT: No acute fracture or dislocation. Mild right hip joint space narrowing with a superior acetabular osteophyte. Supporting Subjective Information Below: Past Medical History: PAST MEDICAL HISTORY Diagnosis Date Acute pain of both hips 03/01/2022 Cymbalta has helped. Anxiety with depression 06/25/2021 Arthritis of right hip 12/30/2024 X-ray 12/2024: mild Elevated hemoglobin A1c 07/26/2021 GERD without esophagitis 06/25/2021 Hip pain 07/11/2014 History of 2019 novel coronavirus disease (COVID-19) 11/01/2020 10/27/2020 Inflammatory polyarthropathy (HCC) 02/10/[address] Sandoval Iron deficiency anemia 10/24/2022 Low iron 01/23/2021 Muscle spasm 05/19/2013 MVP (mitral valve prolapse) 02/10/2014 On 2 D echo 01/2014 Pain in joint, ankle and foot 02/19/2012 Pseudotumor cerebri Right hip pain 06/25/2021 Saw Ortho (Dr. Brownlee) Told bone on bone. Routine gynecological examination Dr Doty Valvular heart disease 02/10/2014 2D echo 01/2014: 1+ MVI and TI Vitamin D deficiency 02/10/2014 Past Surgical History: PAST SURGICAL HISTORY Procedure Laterality Date 2D ECHO (EXEP) ''2013 EF=60%, mild MVP, +1 MVI and TI DELIVERY ONLY , low cervical DELIVERY ONLY 07/07/2017 PAST SURGICAL HISTORY OF 08/2000 TENDON REPAIR RIGHT WRIST STRESS ECHO 02/13/2021 normal TONSILLECTOMY PRIMARY/SECONDARY Tonsillectomy Family History: FAMILY HISTORY Problem Relation Age of Onset Seizures Mother tonic-clonic, quiescent off medication No Known Problems Father Diabetes Maternal Grandfather Hypertension Maternal Grandfather Heart Maternal Grandfather (more content not included)... Normal [facility] CNPNon 12-30-2024 [facility] MICHAEL CASTRO ([id number]) 1985 F Date Time Provider Department 12/30/24 SANKET CRUZ During your visit today, we recorded the following information about you: Sanket Cruz MD 12/30/2024 8:42 PM Signed Let patient know the hip x-ray shows mild arthritis. Sarah Evans LPN 12/31/2024 8:39 AM Signed Left message for pt to contact office. CHACORTA Brown Michelle, RN 12/31/2024 8:42 AM Signed PATIENT NOTIFIED OF INFORMATION Allergies As of Date: 12/30/2024 Noted Allergy Reaction DIAMOX (ACETAZOLAMIDE) 05/16/2016 14 - Other: See Comments Comments: Numbness in hands and feet Date Reviewed: 12/02/2024 Reviewed by: Sanket Cruz MD - Fully Assessed Reason for Visit: Results [95] Primary Visit Diagnosis:Arthritis of right hip [M16.11] Prescriptions as of 12/31/2024 - meloxicam (MOBIC) 15 mg tablet Take 1 tablet by mouth once daily. 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] 10/04/2008 12/28/2008 Pain in joint, ankle and foot [M25.579] 02/19/2012 Dyspareunia [[id number]] 04/05/2013 Muscle spasm [M62.838] 05/19/2013 Routine gynecological examination [Z01.419] 10/26/2014 Inflammatory polyarthropathy (HCC) [M06.4] 02/10/2014 Vitamin D deficiency [E55.9] 02/10/2014 MVP (mitral valve prolapse) [I34.1] 02/10/2014 Valvular heart disease [I38] 02/10/2014 Well adult exam [Z00.00] 08/04/2014 NSAID long-term use [Z79.1] 08/04/2014 Morbid obesity (HCC) [E66.01] 08/04/2014 Pseudotumor cerebri [G93.2] 11/14/2015 Menorrhagia with regular cycle [N92.0] 05/16/2016 04/28/2017 Encounter for screening for cardiovascular diso*05/16/2016 History of delivery, currently pregnan*12/12/2016 08/12/2017 History of labor [Z87.51] 12/12/2016 08/12/2017 Family history of genetic disease [Z84.89] 12/12/2016 Nausea and vomiting during [O21.9] 12/12/2016 08/12/2017 History of mitral valve disorder [Z86.79] 12/12/2016 Patient requested diagnostic testing [Z01.89] 12/12/2016 01/14/2017 Request for sterilization [Z30.2] 05/09/2017 08/12/2017 History of 2019 novel coronavirus disease (COVI*11/01/2020 Low iron [E61.1] 01/23/2021 Right hip pain [M25.551] 06/25/2021 Anxiety with depression [F41.8] 06/25/2021 GERD without esophagitis [K21.9] 06/25/2021 Elevated hemoglobin A1c [R73.09] 07/26/2021 Acute pain of both hips [M25.551, M25.552] 03/01/2022 Medication management [Z79.899] 03/01/2022 Iron deficiency anemia [D50.9] 10/24/2022 Arthritis of right hip [M16.11] 12/30/2024 Encounter Status:Closed by DILAN JONES on 12/31/24 [facility] XR HIP 3V PELV+ AP/LAT RTon 12-28-2024 XR HIP 3V PELV+ AP/LAT RT * * *Final Report* * * DATE OF EXAM: Dec 28 2024 2:25PM [id number] - XR HIP 3V PELV+ AP/LAT RT / PROCEDURE REASON: multiple diagnoses * * * * Physician Interpretation * * * * EXAMINATION: XR HIP 3V PELV+ AP/LAT RT CLINICAL HISTORY: Chronic right hip pain Technique: XR HIP 3V PELV+ AP/LAT RT -- RIGHT with 3 views on 3 images Comparison: X-ray pelvis 03/07/2014 RESULT: No acute fracture or dislocation. Mild right hip joint space narrowing with a superior acetabular osteophyte. IMPRESSION: No acute osseous abnormality Director Of Partner Marketing: JACKIE Transcribe Date/Time: Dec 30 2024 1:52P Dictated by : LILIYA DENTON MD This examination was interpreted and the report reviewed and electronically signed by: LILIYA DENTON MD on Dec 30 2024 1:54PM EST [id number] Normal [facility] CNOVon 12-02-2024 CNOV Office Visit ([facility] ) MICHAEL CASTRO ([id number]) 1985 F Date Time Provider Department 12/02/24 11:00 AM [facility] CR[facility]Z [facility] During your visit today, we recorded the following information about you: Pulse Blood pressure Weight Height 71/minute 136/80 105.2 kg 1.588 m Sanket Cruz MD 12/02/2024 8:11 PM Signed Chief Complaint No chief complaint on file. LIZZETTE Castro is a 39 year old female who presents here today for patient requesting referral for ortho for hip. Which Hip? left Has been a constant issue since about 2013. She did see ortho and was told she may need a hip replacement at some time but advised to loose weight and to try to manage the pain with NSAID's for as long as possible and that was just over 10 years ago. Now she is to the point where the hip will lock up and has pain at 10/10 and it will bring tears to her eyes. She is also having episodes where it feels like the hip gives out and it's week and almost falls. Patient has not been seen in office since 2021. Needs physical scheduled. Past medical history, appointments, medications, allergies reviewed. Previous Medical History PAST MEDICAL HISTORY Diagnosis Date Acute pain of both hips 03/01/2022 Cymbalta has helped. Anxiety with depression 06/25/2021 Elevated hemoglobin A1c 07/26/2021 GERD without esophagitis 06/25/2021 Hip pain 07/11/2014 History of 2019 novel coronavirus disease (COVID-19) 11/01/2020 10/27/2020 Inflammatory polyarthropathy (HCC) 02/10/[address] Sandoval Iron deficiency anemia 10/24/2022 Low iron 01/23/2021 Muscle spasm 05/19/2013 MVP (mitral valve prolapse) 02/10/2014 On 2 D echo 01/2014 Pain in joint, ankle and foot 02/19/2012 Pseudotumor cerebri Right hip pain 06/25/2021 Saw Ortho (Dr. Brownlee) Told bone on bone. Routine gynecological examination Dr Doty Valvular heart disease 02/10/2014 2D echo 01/2014: 1+ MVI and TI Vitamin D deficiency 02/10/2014 Previous Surgical History PAST SURGICAL HISTORY Procedure Laterality Date 2D ECHO (EXEP) EF=60%, mild MVP, +1 MVI and TI DELIVERY ONLY , low cervical DELIVERY ONLY 07/07/2017 PAST SURGICAL HISTORY OF 08/2000 TENDON REPAIR RIGHT WRIST STRESS ECHO 02/13/2021 normal TONSILLECTOMY PRIMARY/SECONDARY Tonsillectomy Family History FAMILY HISTORY Problem Relation Age of Onset Seizures Mother tonic-clonic, quiescent off medication Diabetes Maternal Grandfather Hypertension Maternal Grandfather Heart Maternal Grandfather had a difibulator Hypertension Paternal Grandmother other (Other) Paternal Grandmother No breast/hand bobbin 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 acetaminophen (TYLENOL EXTRA STRENGTH) 500 mg tablet Take 2 tablets by mouth every 6 hours as needed (pain). FOR PAIN. ibuprofen (MOTRIN) 600 mg tablet Take 1 tablet by mouth every 6 hours as needed (pain). FOR PAIN. Cholecalciferol, Vitamin D3, 50 mcg (2,000 unit) cap Take 1 capsule by mouth once daily. Ferrous Sulfate (SLOW FE) 142 mg (45 mg iron) TbER Take 1 tablet by mouth once daily. No current facility-administered medications on file prior to visit. Social History Social History Tobacco Use Smoking status: Never Smokeless tobacco: Never Vaping Use Vaping status: Never Used Substance Use Topics Alcohol use: Yes Comment: Occasionally, not while Drug use: No Review of Symptoms REVIEW OF SYSTEMS See HPI EXAM: BP 136/80 Pulse 71 Ht 158.8 cm (5' 2.5) Wt 105.2 kg (232 lb) LMP 04/21/2022 (Exact Date) SpO2 98% BMI 41.76 kg/m? General Appearance: Well appearing, alert, in no acute distress, well-hydrated, well nourished.. Musculoskeletal: right hip: has pain with palpation to the anterior hip joint and over the lateral greater trochanter. Has pain with flexion, extention, internal/external rotation and abduction of the hip. No crepitus. . Health Maintenance List Cervical Cancer Screening due on 02/24/2024 Influenza Vaccine(1) due on 07/25/2024 Covid-19 Vaccine(3 - 2023- season) due on 07/25/2024 Mammogram Screening due on 11/03/2025 DTaP,Tdap,Td Vaccine(2 - Td or Tdap) due on 06/05/2027 HIV Screening Completed HPV Vaccine Aged Out Hepatitis B Vaccine Discontinued Hepatitis C Screening Discontinued Data reviewed A/P ASSESSMENT/PLAN: 1. Chronic right hip pain - ICD9: 719.45, 338.29, ICD10: M25.551, G89.29 Check - XR HIP GENERAL 3V PELV/AP/LAT RIGHT - place on Mobic 15 mg a (more content not included)... Normal [facility] [place] 11-04-2024 CNPN Telephone ([facility]) MICHAEL CASTRO ([id number]) 1985 F Date Time Provider Department 11/04/24 FUNMILAYO DAVIES During your visit today, we recorded the following information about you: Funmilayo Davies APRN.[employer] 11/04/2024 8:58 AM Signed Please let patient know her mammogram shows a stable cyst. 6 month follow up recommended. I have placed order for patient to schedule. Scott Patterson MA 11/04/2024 9:53 AM Signed Pt notified and verbalized understanding Scott Patterson MA Allergies As of Date: 11/04/2024 Noted Allergy Reaction DIAMOX (ACETAZOLAMIDE) 05/16/2016 14 - Other: See Comments Comments: Numbness in hands and feet Date Reviewed: 10/20/2024 Reviewed by: Beatriz Serrano MA - Fully Assessed Reason for Visit: Results [95] Primary Visit Diagnosis:Breast cyst, left [N60.02] Order(s):[facility] SCREENING W DIANN [[id number]] Order #: [id number] FUTURE Prescriptions as of 11/04/2024 - DULoxetine (CYMBALTA) 30 mg capsule Take 1 capsule by mouth once daily. - acetaminophen (TYLENOL EXTRA STRENGTH) 500 mg tablet Take 2 tablets by mouth every 6 hours as needed (pain). FOR PAIN. - ibuprofen (MOTRIN) 600 mg tablet Take 1 tablet by mouth every 6 hours as needed (pain). FOR PAIN. - Cholecalciferol, Vitamin D3, 50 mcg (2,000 unit) cap Take 1 capsule by mouth once daily. - Ferrous Sulfate (SLOW FE) 142 mg (45 mg iron) TbER Take 1 tablet by mouth once daily. 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] 10/04/2008 12/28/2008 Pain in joint, ankle and foot [M25.579] 02/19/2012 Dyspareunia [[id number]] 04/05/2013 Muscle spasm [M62.838] 05/19/2013 Routine gynecological examination [Z01.419] 10/26/2014 Inflammatory polyarthropathy (HCC) [M06.4] 02/10/2014 Vitamin D deficiency [E55.9] 02/10/2014 MVP (mitral valve prolapse) [I34.1] 02/10/2014 Valvular heart disease [I38] 02/10/2014 Well adult exam [Z00.00] 08/04/2014 NSAID long-term use [Z79.1] 08/04/2014 Morbid obesity (HCC) [E66.01] 08/04/2014 Pseudotumor cerebri [G93.2] 11/14/2015 Menorrhagia with regular cycle [N92.0] 05/16/2016 04/28/2017 Encounter for screening for cardiovascular diso*05/16/2016 History of delivery, currently pregnan*12/12/2016 08/12/2017 History of labor [Z87.51] 12/12/2016 08/12/2017 Family history of genetic disease [Z84.89] 12/12/2016 Nausea and vomiting during [O21.9] 12/12/2016 08/12/2017 History of mitral valve disorder [Z86.79] 12/12/2016 Patient requested diagnostic testing [Z01.89] 12/12/2016 01/14/2017 Request for sterilization [Z30.2] 05/09/2017 08/12/2017 History of 2019 novel coronavirus disease (COVI*11/01/2020 Low iron [E61.1] 01/23/2021 Right hip pain [M25.551] 06/25/2021 Anxiety with depression [F41.8] 06/25/2021 GERD without esophagitis [K21.9] 06/25/2021 Elevated hemoglobin A1c [R73.09] 07/26/2021 Acute pain of both hips [M25.551, M25.552] 03/01/2022 Medication management [Z79.899] 03/01/2022 Iron deficiency anemia [D50.9] 10/24/2022 Encounter Status:Closed by SCOTT PATTERSON CMA on 11/04/24 Normal [facility] SARATH DIAG W DIANN Dong 2023 [facility] DIAG W DIANN BLAYNE * * *Final Report* * * DATE OF EXAM: Nov 03 2024 8:20AM [id number] - [facility] DIAG W DIANN BLAYNE / PROCEDURE REASON: Mass of left breast, unspecified quadrant * * * * Physician Interpretation * * * * RESULT: [facility] [address] [place] [address] #[id number] - [facility] YOUSUF CISNEROS #[id number] - [facility] US BREAST LTD LT HISTORY: Patient is 39 years old and is seen for diagnostic evaluation of is asymptomatic in the right breast and area of clinical concern in the left breast. Patient states no personal history of breast cancer. Patient states no personal history of other cancers. COMPARISON STUDIES: The present examination has been compared to prior imaging studies dated 09/15/2023 (mammogram), 10/08/2023 (ultrasound), 10/08/2023 (mammogram), 04/13/2024 (mammogram) and 04/13/2024 (ultrasound). MAMMOGRAM TECHNIQUE: The study was acquired using full field digital technology and interpreted from soft copy. Digital Breast Tomosynthesis (DBT) images were obtained and used to assist in the interpretation of this examination. Computer-aided detection was utilized by the radiologist in the interpretation of this examination. MAMMOGRAM FINDINGS: The breasts are heterogeneously dense, which may obscure small masses. There is a stable isodense focal asymmetry measuring 0.6 cm with circumscribed margins in the left breast at 3 o'clock. No suspicious masses, calcifications or other abnormalities are seen in the right breast. ULTRASOUND TECHNIQUE: Targeted ultrasound of the indicated area was performed. Nava scale images were saved. ULTRASOUND FINDINGS: Ultrasound demonstrates a stable oval complicated cyst measuring 0.6 cm in the left breast at 3 o'clock. Internal echotexture is hypoechoic. Color flow imaging demonstrates vascularity is not present. IMPRESSION: Stable complicated cyst in the left breast is probably benign. A follow-up in 6 months is recommended. BI-RADS Category 3: Probably Benign RISK: Based on the Tyrer-Cuzick (TC) risk assessment model, this patient has a 11.5% lifetime risk of developing breast cancer, meaning they are at average risk for developing breast cancer. However, this is only an estimate based on available history provided on the patient's questionnaire. We encourage all patients to talk with their providers about these results, further recommendations for managing breast health, and appropriate supplemental screening options if the patient has dense breast tissue. Interpreting Radiologist: Yanci Segura M.D. Electronically signed on: 11/03/2024 Director Of Partner Marketing: TULIO Transcribe Date/Time: Nov 03 2024 8:01A Dictated by: YANCI SEGURA MD This examination was interpreted and the report reviewed and electronically signed by: YANCI SEGURA MD on Nov 03 2024 9:04AM EST [id number] Normal [facility] US BREAST LTD LTon 11-03 [facility] US BREAST LTD LT * * *Final Report* * * DATE OF EXAM: Nov 03 2024 8:58AM [id number] - [facility] DeepField BREAST LTD LT / PROCEDURE REASON: Mass of left breast, unspecified quadrant * * * * Physician Interpretation * * * * [place] [address] #[id number] - [facility] DIAG W DIANN BLAYNE #[id number] - [facility] DeepField BREAST LTD LT HISTORY: Patient is 39 years old and is seen for diagnostic evaluation of is asymptomatic in the right breast and area of clinical concern in the left breast. Patient states no personal history of breast cancer. Patient states no personal history of other cancers. COMPARISON STUDIES: The present examination has been compared to prior imaging studies dated 09/15/2023 (mammogram), 10/08/2023 (ultrasound), 10/08/2023 (mammogram), 04/13/2024 (mammogram) and 04/13/2024 (ultrasound). MAMMOGRAM TECHNIQUE: The study was acquired using full field digital technology and interpreted from soft copy. Digital Breast Tomosynthesis (DBT) images were obtained and used to assist in the interpretation of this examination. Computer-aided detection was utilized by the radiologist in the interpretation of this examination. MAMMOGRAM FINDINGS: The breasts are heterogeneously dense, which may obscure small masses. There is a stable isodense focal asymmetry measuring 0.6 cm with circumscribed margins in the left breast at 3 o'clock. No suspicious masses, calcifications or other abnormalities are seen in the right breast. ULTRASOUND TECHNIQUE: Targeted ultrasound of the indicated area was performed. Nava scale images were saved. ULTRASOUND FINDINGS: Ultrasound demonstrates a stable oval complicated cyst measuring 0.6 cm in the left breast at 3 o'clock. Internal echotexture is hypoechoic. Color flow imaging demonstrates vascularity is not present. IMPRESSION: Stable complicated cyst in the left breast is probably benign. A follow-up in 6 months is recommended. BI-RADS Category 3: Probably Benign RISK: Based on the Tyrer-Cuzick (TC) risk assessment model, this patient has a 11.5% lifetime risk of developing breast cancer, meaning they are at average risk for developing breast cancer. However, this is only an estimate based on available history provided on the patient's questionnaire. We encourage all patients to talk with their providers about these results, further recommendations for managing breast health, and appropriate supplemental screening options if the patient has dense breast tissue. Interpreting Radiologist: Yanci Segura M.D. Electronically signed on: 11/03/2024 Director Of Partner Marketing: TULIO Transcribe Date/Time: Nov 03 2024 8:57A Dictated by : YANCI SEGURA MD This examination was interpreted and the report reviewed and electronically signed by: YANCI SEGURA MD on Nov 03 2024 9:04AM EST [id number] Normal [facility] CNOVon 10-20-2024 CNOV Office Visit (WSTR ) MICHAEL CASTRO ([id number]) 1985 F Date Time Provider Department 10/20/24 1:30 PM [facility] During your visit today, we recorded the following information about you: Temperature Pulse Respiration Blood pressure 97.9 degrees 78/minute 16/minute 122/80 Weight 108.5 kg Chapo Shore MD 10/20/2024 2:20 PM Signed Patient presents with: Ear Pain: right x 1 week, fever x 2 days HPI: Feeling right ear pain for 1 week. Fever up to 101 today. Positive symptoms: Right Earache, pain radiates to the right neck, Fever, Negative symptoms: Cough, Sore throat, Nasal Congestion, Rhinorrhea, hearing change, otorrhea, dental pain OTC: Tylenol MEDICATIONS: Current Outpatient Medications Medication Sig DULoxetine (CYMBALTA) 30 mg capsule Take 1 capsule by mouth once daily. acetaminophen (TYLENOL EXTRA STRENGTH) 500 mg tablet Take 2 tablets by mouth every 6 hours as needed (pain). FOR PAIN. ibuprofen (MOTRIN) 600 mg tablet Take 1 tablet by mouth every 6 hours as needed (pain). FOR PAIN. Cholecalciferol, Vitamin D3, 50 mcg (2,000 unit) cap Take 1 capsule by mouth once daily. Ferrous Sulfate (SLOW FE) 142 mg (45 mg iron) TbER Take 1 tablet by mouth once daily. No current facility-administered medications for this visit. ALLERGIES: ALLERGIES Allergen Reactions Diamox [Acetazolami* Other: See Comments Numbness in hands and feet VITALS: BP 122/80 Pulse 78 Temp 36.6 ?C (97.9 ?F) Resp 16 Wt 108.5 kg (239 lb 3.2 oz) LMP 04/21/2022 (Exact Date) SpO2 100% BMI 43.40 kg/m? PHYSICAL EXAM: GEN: Pleasant, in no acute distress. HEENT: PERRL, EOMI, conjunctiva clear Ears: canals clear. TMs without erythema, bulge, or effusion. TMJs non-tender to palpation. Sinuses: non-tender frontal sinus, non-tender maxillary sinuses Throat: moist mucous membranes, mild erythema, no exudate Neck: supple, no thyromegaly, no lymphadenopathy HEART: regular rate and rhythm, no murmurs LUNGS: clear to auscultation, no wheezes or crackles, no increased WOB ASSESSMENT/PLAN: 1. Otalgia, right ear - ICD9: 388.70, ICD10: H92.01 (primary diagnosis) 2. Fever, unspecified fever cause - ICD9: 780.60, ICD10: R50.9 - STREP A MOLECULAR (POC) - negative. Unclear source of otalgia. Exam is benign. Consider dentist evaluation if pain persists. Continue supportive care with ibuprofen, acetaminophen, and heat. No obvious source for fever. Monitor for additional symptoms. Chapo Shore MD Allergies As of Date: 10/20/2024 Noted Allergy Reaction DIAMOX (ACETAZOLAMIDE) 05/16/2016 14 - Other: See Comments Comments: Numbness in hands and feet Date Reviewed: 10/20/2024 Reviewed by: Beatriz Serrano MA - Fully Assessed Reason for Visit: Ear Pain [817] Cmt: right x 1 week, fever x 2 days Primary Visit Diagnosis:Otalgia, right ear [H92.01] Other Visit Diagnosis:Fever, unspecified fever cause [R50.9] Order(s):STREP A MOLECULAR (POC) [[id number]] Order #: [id number]. #:[id number] Prescriptions as of 10/20/2024 - DULoxetine (CYMBALTA) 30 mg capsule Take 1 capsule by mouth once daily. - acetaminophen (TYLENOL EXTRA STRENGTH) 500 mg tablet Take 2 tablets by mouth every 6 hours as needed (pain). FOR PAIN. - ibuprofen (MOTRIN) 600 mg tablet Take 1 tablet by mouth every 6 hours as needed (pain). FOR PAIN. - Cholecalciferol, Vitamin D3, 50 mcg (2,000 unit) cap Take 1 capsule by mouth once daily. - Ferrous Sulfate (SLOW FE) 142 mg (45 mg iron) TbER Take 1 tablet by mouth once daily. Meds Comments as of 04/08/2008: All medications reviewed April 08, 2008 Sara Akers Rn Problem List As Of Date 10/20/2024 Noted Resolved SUPERVIS NORMAL 1ST PREG [Z34.00] 04/08/2008 12/28/2008 THRT RILEY LABOR-ANTEPART [O47.00] 10/04/2008 12/28/2008 Pain in joint, ankle and foot [M25.579] 02/19/2012 Dyspareunia [[id number]] 04/05/2013 Muscle spasm [M62.838] 05/19/2013 Routine gynecological examination [Z01.419] 10/26/2014 Inflammatory polyarthropathy (HCC) [M06.4] 02/10/2014 Vitamin D deficiency [E55.9] 02/10/2014 MVP (mitral valve prolapse) [I34.1] 02/10/2014 Valvular heart disease [I38] 02/10/2014 Well adult exam [Z00.00] 08/04/2014 NSAID long-term use [Z79.1] 08/04/2014 Morbid obesity (HCC) [E66.01] 08/04/2014 Pseudotumor cerebri [G93.2] 11/14/2015 Menorrhagia with regular cycle [N92.0] 05/16/2016 04/28/2017 Encounter for screening for cardiovascular diso*05/16/2016 History of delivery, currently pregnan*12/12/2016 08/12/2017 History of labor [Z87.51] 12/12/2016 08/12/2017 Family history of genetic disease [Z84.89] 12/12/2016 Nausea and vomiting during [O21.9] 12/12/2016 08/12/2017 History of mitral valve disorder [Z86.79] 12/12/2016 Patient requested diagnostic testing [Z01.89] 12/12/2016 01/14/2017 Request for steriliza (more content not included)... Normal [facility] STREP A MOLECULAR (POC)on Procedural Control Valid [facility] Strep A (POCT) Negative Negative [facility] DBT Breast - left diagnostic for implanton 04-13-2024 * * *Final Report* * * DATE OF EXAM: Apr 13 2024 8:30AM [id number] - SARATH cVidyaG W DIANN LT / PROCEDURE REASON: multiple diagnoses * * * * Physician Interpretation * * * * RESULT: #[id number] - [facility] cVidyaG W DIANN LT #[id number] - [facility] BREAST [facility] LT UNILATERAL LEFT DIGITAL DIAGNOSTIC MAMMOGRAM TOMOSYNTHESIS WITH CAD: 04/13/2024 HISTORY: 6 month follow up no issues /priors available for comparison Multiple Diagnoses Multiple Diagnoses. RESULT: TECHNIQUE: The study was acquired using full field digital technology and interpreted from soft copy. Digital Breast Tomosynthesis (DBT) images were obtained and used to assist in the interpretation of this examination. Current study was also evaluated with a Computer Aided Detection (CAD). Comparison is made to exams dated: 10/08/2023 mammogram and 09/15/2023 mammogram - [facility]. The left breast is heterogeneously dense, which may obscure small masses. There is a stable 6 mm oval asymmetry in the left breast at 3 o'clock middle depth. No other significant masses or calcifications are seen in the breast. DIVISION OF RADIOLOGY Provider, [facility] - 04/13/2024 * * *Final Report* * * DATE OF EXAM: Apr 13 2024 8:30AM [id number] - [facility] GENNAROG W DIANN LT / PROCEDURE REASON: multiple diagnoses * * * * Physician Interpretation * * * * RESULT: #[id number] - [facility] DIAG W DIANN LT #[id number] - [facility] US BREAST LTD LT UNILATERAL LEFT DIGITAL DIAGNOSTIC MAMMOGRAM TOMOSYNTHESIS WITH CAD: 04/13/2024 HISTORY: 6 month follow up no issues /priors available for comparison Multiple Diagnoses Multiple Diagnoses. RESULT: TECHNIQUE: The study was acquired using full field digital technology and interpreted from soft copy. Digital Breast Tomosynthesis (DBT) images were obtained and used to assist in the interpretation of this examination. Current study was also evaluated with a Computer Aided Detection (CAD). Comparison is made to exams dated: 10/08/2023 mammogram and 09/15/2023 mammogram - [facility]. The left breast is heterogeneously dense, which may obscure small masses. There is a stable 6 mm oval asymmetry in the left breast at 3 o'clock middle depth. No other significant masses or calcifications are seen in the breast. IMPRESSION IMPRESSION: PROBABLY BENIGN - SHORT TERM INTERVAL FOLLOW-UP RECOMMENDED The stable 6 mm oval asymmetry in the left breast is probably benign. LIMITED ULTRASOUND OF LEFT BREAST: 04/13/2024 RESULT: Comparison is made to exams dated: 10/08/2023 mammogram and 09/15/2023 mammogram - [facility]. Color flow and real-time ultrasound of the left breast 3 o'clock region were performed. Nava scale images of the real-time examination were reviewed. There is a 0.7 cm x 0.4 cm x 0.4 cm lobulated cyst in the left breast at 3 o'clock middle depth. This lobulated cyst is hypoechoic. This abnormality is not significantly changed and correlates with mammography findings. Color flow imaging demonstrates that there is no vascularity present. IMPRESSION: PROBABLY BENIGN - SHORT TERM INTERVAL FOLLOW-UP RECOMMENDED The 0.7 cm x 0.4 cm x 0.4 cm lobulated cyst in the left breast is consistent with a complicated cyst and is probably benign. A follow-up mammogram and an ultrasound in 6 months is recommended to demonstrate stability. Yanci garnett/claudia:04/13/2024 09:52:30 Multiple national specialty organizations have released breast cancer screening guidelines for women at average risk for developing breast cancer - guidelines that are based on both evidence and opinion, yet differ on when to start and how often to screen for breast cancer. With representation from Breast Imaging, Internal Medicine, Women's Health, Family Medicine, and Medical/Surgical Oncology, the [facility] has carefully reviewed the data and reached the following consensus: 1) All women should engage in shared decision-making with their providers to decide when to start and how often to screen; 2) All women should have the opportunity to start screening mammography at age 40; 3) For women ages 45-55, we recommend annual screening mammograms; 4) For women ages 55 and over, we support both the transition from an annual to a biennial interval if this aligns more with patient's values and preferences, or continuation with annual screening; 5) All women should discuss with their providers when to stop screening mammograms. Occupational Therapy Director(s): Jeana Cochran, [facility]; RT Rossana(R)(M), [facility] OVERALL STUDY BIRADS: 3 Probably benign finding - short term interval follow-up recommended Director Of Partner Marketing: Claudia Transcribe Date/Time: Apr 13 2024 8:01A Dictated by: YANCI SEGURA MD This examination was interpreted and the report reviewed and electronically signed by: YANCI SEGURA MD on Apr 13 2024 9:52AM [facility] No Panel Informationon 04-13 IMPRESSION: PROBABLY BENIGN - SHORT TERM INTERVAL FOLLOW-UP RECOMMENDED The stable 6 mm oval asymmetry in the left breast is probably benign. LIMITED ULTRASOUND OF LEFT BREAST: 04/13/2024 RESULT: Comparison is made to exams dated: 10/08/2023 mammogram and 09/15/2023 mammogram - [facility]. Color flow and real-time ultrasound of the left breast 3 o'clock region were performed. Nava scale images of the real-time examination were reviewed. There is a 0.7 cm x 0.4 cm x 0.4 cm lobulated cyst in the left breast at 3 o'clock middle depth. This lobulated cyst is hypoechoic. This abnormality is not significantly changed and correlates with mammography findings. Color flow imaging demonstrates that there is no vascularity present. IMPRESSION: PROBABLY BENIGN - SHORT TERM INTERVAL FOLLOW-UP RECOMMENDED The 0.7 cm x 0.4 cm x 0.4 cm lobulated cyst in the left breast is consistent with a complicated cyst and is probably benign. A follow-up mammogram and an ultrasound in 6 months is recommended to demonstrate stability. Yanci garnett/claudia:04/13/2024 09:52:30 Multiple national specialty organizations have released breast cancer screening guidelines for women at average risk for developing breast cancer - guidelines that are based on both evidence and opinion, yet differ on when to start and how often to screen for breast cancer. With representation from Breast Imaging, Internal Medicine, Women's Health, Family Medicine, and Medical/Surgical Oncology, the [facility] has carefully reviewed the data and reached the following consensus: 1) All women should engage in shared decision-making with their providers to decide when to start and how often to screen; 2) All women should have the opportunity to start screening mammography at age 40; 3) For women ages 45-55, we recommend annual screening mammograms; 4) For women ages 55 and over, we support both the transition from an annual to a biennial interval if this aligns more with patient's values and preferences, or continuation with annual screening; 5) All women should discuss with their providers when to stop screening mammograms. Occupational Therapy Director(s): Jeana Cochran, [facility]; Ginny Tijerina RT(R)(M), [facility] OVERALL STUDY BIRADS: 3 Probably benign finding - short term interval follow-up recommended Director Of Partner Marketing: Claudia Transcribe Date/Time: Apr 13 2024 8:01A Dictated by : YANCI SEGURA MD This examination was interpreted and the report reviewed and electronically signed by: YANCI SEGURA MD on Apr 13 2024 9:52AM [facility] DIVISION OF RADIOLOGY Radiology Study observation (narrative) [facility] Panel InformationOrdered By: [facility] Provider on 04-13-2024 [facility] US Breast - left limitedon 0 04-13-2024 * * *Final Report* * * DATE OF EXAM: Apr 13 2024 8:40AM U [id number] - [facility] BREAST LTD LT / PROCEDURE REASON: multiple diagnoses * * * * Physician Interpretation * * * * #[id number] - [facility] DIAG W DIANN LT #[id number] - [facility] DeepField BREAST LTD LT UNILATERAL LEFT DIGITAL DIAGNOSTIC MAMMOGRAM TOMOSYNTHESIS WITH CAD: 04/13/2024 HISTORY: 6 month follow up no issues /priors available for comparison Multiple Diagnoses Multiple Diagnoses. RESULT: TECHNIQUE: The study was acquired using full field digital technology and interpreted from soft copy. Digital Breast Tomosynthesis (DBT) images were obtained and used to assist in the interpretation of this examination. Current study was also evaluated with a Computer Aided Detection (CAD). Comparison is made to exams dated: 10/08/2023 mammogram and 09/15/2023 mammogram - [facility]. The left breast is heterogeneously dense, which may obscure small masses. There is a stable 6 mm oval asymmetry in the left breast at 3 o'clock middle depth. No other significant masses or calcifications are seen in the breast. DIVISION OF RADIOLOGY Provider, [facility] - 04/13/2024 * * *Final Report* * * DATE OF EXAM: Apr 13 2024 8:40AM U [id number] - Mobile Location, IP BREAST [facility] LT / PROCEDURE REASON: multiple diagnoses * * * * Physician Interpretation * * * * #[id number] - [facility] DIAG W DIANN LT #[id number] - [facility] DeepField BREAST LTD LT UNILATERAL LEFT DIGITAL DIAGNOSTIC MAMMOGRAM TOMOSYNTHESIS WITH CAD: 04/13/2024 HISTORY: 6 month follow up no issues /priors available for comparison Multiple Diagnoses Multiple Diagnoses. RESULT: TECHNIQUE: The study was acquired using full field digital technology and interpreted from soft copy. Digital Breast Tomosynthesis (DBT) images were obtained and used to assist in the interpretation of this examination. Current study was also evaluated with a Computer Aided Detection (CAD). Comparison is made to exams dated: 10/08/2023 mammogram and 09/15/2023 mammogram - [facility]. The left breast is heterogeneously dense, which may obscure small masses. There is a stable 6 mm oval asymmetry in the left breast at 3 o'clock middle depth. No other significant masses or calcifications are seen in the breast. IMPRESSION IMPRESSION: PROBABLY BENIGN - SHORT TERM INTERVAL FOLLOW-UP RECOMMENDED The stable 6 mm oval asymmetry in the left breast is probably benign. LIMITED ULTRASOUND OF LEFT BREAST: 04/13/2024 RESULT: Comparison is made to exams dated: 10/08/2023 mammogram and 09/15/2023 mammogram - [facility]. Color flow and real-time ultrasound of the left breast 3 o'clock region were performed. Nava scale images of the real-time examination were reviewed. There is a 0.7 cm x 0.4 cm x 0.4 cm lobulated cyst in the left breast at 3 o'clock middle depth. This lobulated cyst is hypoechoic. This abnormality is not significantly changed and correlates with mammography findings. Color flow imaging demonstrates that there is no vascularity present. IMPRESSION: PROBABLY BENIGN - SHORT TERM INTERVAL FOLLOW-UP RECOMMENDED The 0.7 cm x 0.4 cm x 0.4 cm lobulated cyst in the left breast is consistent with a complicated cyst and is probably benign. A follow-up mammogram and an ultrasound in 6 months is recommended to demonstrate stability. Yanci garnett/claudia:04/13/2024 09:52:30 Multiple national specialty organizations have released breast cancer screening guidelines for women at average risk for developing breast cancer - guidelines that are based on both evidence and opinion, yet differ on when to start and how often to screen for breast cancer. With representation from Breast Imaging, Internal Medicine, Women's Health, Family Medicine, and Medical/Surgical Oncology, the [facility] has carefully reviewed the data and reached the following consensus: 1) All women should engage in shared decision-making with their providers to decide when to start and how often to screen; 2) All women should have the opportunity to start screening mammography at age 40; 3) For women ages 45-55, we recommend annual screening mammograms; 4) For women ages 55 and over, we support both the transition from an annual to a biennial interval if this aligns more with patient's values and preferences, or continuation with annual screening; 5) All women should discuss with their providers when to stop screening mammograms. Occupational Therapy Director(s): Jeana Cochran, [facility]; RT Rossana(R)(M)[facility] OVERALL STUDY BIRADS: 3 Probably benign finding - short term interval follow-up recommended Director Of Partner Marketing: Claudia Transcribe Date/Time: Apr 13 2024 8:01A Dictated by : YANCI SEGURA MD This examination was interpreted and the report reviewed and electronically signed by: YANCI SEGURA MD on Apr 13 2024 9:52AM EST [facility] SARATH DIAG W DIANN LEFTon 10-08 [facility] US BREAST LTD LEFTon 023 [facility] SARATH SCREENINGon 09-15-2023 [facility] GLUCOSE CSFon 05-30-2022 Glucose (CSF) [Mass/Vol] 60 mg/dL 40 - 70 mg/dL [facility] PROTEIN CSFon 05-30-2022 Protein (CSF) [Mass/Vol] 18 mg/dL 15 - 45 mg/dL [facility] No Panel Informationon 05-13 [facility] No Panel Informationon 02-15 [facility] COVID-19 virus antigen assay SARS-CoV-2 (COVID-19) Ag IA.rapid Ql (Resp) [facility] Work Phone: Vital Signs Date Time Vital Sign Value Performing Clinician Facility 04-21-2025 14:42-0400 Body height 157.5 cm Tim Yip MD Work Phone: [facility] 04-21-2025 14:42-0400 Body mass index (BMI) [Ratio] 42.07 kg/m2 Tim Yip MD Work Phone: [facility] 04-21-2025 14:42-0400 Body weight 104.33 kg Tim Yip MD Work Phone: [facility] 04-21-2025 14:42-0400 Diastolic blood pressure 90 mm[Hg] Tim Yip MD Work Phone: [facility] 04-21-2025 14:42-0400 Systolic blood pressure 134 mm[Hg] Tim Yip MD Work Phone: [facility] 04-07-2025 08:02-0400 Body height 157.5 cm Brooke Duncan MD Work Phone: [facility] 04-07-2025 08:02-0400 Body mass index (BMI) [Ratio] 42.26 kg/m2 Brooke Duncan MD Work Phone: [facility] 04-07-2025 08:02-0400 Body weight 104.8 kg Brooke Duncan MD Work Phone: [facility] 04-07-2025 08:02-0400 Diastolic blood pressure 82 mm[Hg] Brooke Duncan MD Work Phone: [facility] 04-07-2025 08:02-0400 Heart rate 71 /min Brooke Duncan MD Work Phone: [facility] 04-07-2025 08:02-0400 SaO2% (BldA) [Mass fraction] 99 % Brooke Duncan MD Work Phone: [facility] 04-07-2025 08:02-0400 Systolic blood pressure 131 mm[Hg] Brooke Duncan MD Work Phone: [facility] 03-03-2025 14:05-0400 Body height 156.3 cm Sanket Cruz MD Work Phone: [facility] 03-03-2025 14:05-0400 Body mass index (BMI) [Ratio] 42.32 kg/m2 Sanket Cruz MD Work Phone: [facility] 03-03-2025 14:05-0400 Body weight 103.33 kg Sanket Cruz MD Work Phone: [facility] 03-03-2025 14:05-0400 Diastolic blood pressure 76 mm[Hg] Sanket Cruz MD Work Phone: [facility] 03-03-2025 14:05-0400 Heart rate 82 /min Sanket Cruz MD Work Phone: [facility] 03-03-2025 14:05-0400 SaO2% (BldA) [Mass fraction] 98 % Sanket Cruz MD Work Phone: [facility] 03-03-2025 14:05-0400 Systolic blood pressure 118 mm[Hg] Sanket Cruz MD Work Phone: [facility] 02-25-2025 14:07-0400 Body mass index (BMI) [Ratio] 42.93 kg/m2 Sidra Doty APRN.[employer]ETTER[employer]INTER Work Phone: [facility] 02-25-2025 14:070400 Body temperature 97.7 [degF] Sidra Doty APRN.TYP[employer]ETTER[employer] PRINTER Work Phone: [facility] 02-25-2025 14:07-0400 Body weight 104.8 kg Sidra Doty APRN.T[employer]ETTER[employer] PRINTER Work Phone: [facility] 02-25-2025 14:07-0400 Diastolic blood pressure 89 mm[Hg] Sidra Doty APRN.T[employer]ETTER[employer] PRINTER Work Phone: [facility] 02-25-2025 14:07-0400 Heart rate 79 /min Sidra Doty APRN.[employer] PRINTER Work Phone: [facility] 02-25-2025 14:07-0400 Respiratory rate 18 /min Sidra Doty APRN.T[employer] PRINTER Work Phone: [facility] 02-25-2025 14:07-0400 SaO2% (BldA) [Mass fraction] 100 % Sidra Doty APRN.T[employer]ETTER[employer] PRINTER Work Phone: [facility] 02-25-2025 14:07-0400 Systolic blood pressure 154 mm[Hg] Sidra Doty APRN.TYP[employer]ETTER[employer] PRINTER Work Phone: [facility] 02-25-2025 13:22-0400 Body temperature 98.6 [degF] Treatment Wstr Work Phone: [facility] 02-25-2025 13:22-0400 Diastolic blood pressure 85 mm[Hg] Treatment Wstr Work Phone: [facility] 02-25-2025 13:22-0400 Heart rate 80 /min Treatment Wstr Work Phone: [facility] 02-25-2025 13:22-0400 Respiratory rate 18 /min Treatment Wstr Work Phone: [facility] 02-25-2025 13:22-0400 SaO2% (BldA) [Mass fraction] 99 % Treatment Wstr Work Phone: [facility] 02-25-2025 13:22-0400 Systolic blood pressure 132 mm[Hg] Treatment Wstr Work Phone: [facility] 02-24-2025 11:20-0400 Body mass index (BMI) [Ratio] 41.99 kg/m2 Tim Yip MD Work Phone: [facility] 02-24-2025 11:20-0400 Body weight 102.51 kg Tim Yip MD Work Phone: [facility] 02-24-2025 11:20-0400 Diastolic blood pressure 86 mm[Hg] Tim Yip MD Work Phone: [facility] 02-24-2025 11:20-0400 Systolic blood pressure 132 mm[Hg] Tim Yip MD Work Phone: [facility] 02-23-2025 13:18-0400 Body temperature 98.2 [degF] Treatment Wstr Work Phone: [facility] 02-23-2025 13:18-0400 Diastolic blood pressure 76 mm[Hg] Treatment Wstr Work Phone: [facility] 02-23-2025 13:18-0400 Heart rate 85 /min Treatment Wstr Work Phone: [facility] 02-23-2025 13:18-0400 Respiratory rate 16 /min Treatment Wstr Work Phone: [facility] 02-23-2025 13:18-0400 SaO2% (BldA) [Mass fraction] 100 % Treatment Wstr Work Phone: [facility] 02-23-2025 13:18-0400 Systolic blood pressure 108 mm[Hg] Treatment Wstr Work Phone: [facility] 02-21-2025 13:59-0400 Body temperature 98.6 [degF] Treatment Wstr Work Phone: [facility] 02-21-2025 13:59-0400 Diastolic blood pressure 85 mm[Hg] Treatment Wstr Work Phone: [facility] 02-21-2025 13:59-0400 Heart rate 89 /min Treatment Wstr Work Phone: [facility] 02-21-2025 13:59-0400 SaO2% (BldA) [Mass fraction] 98 % Treatment Wstr Work Phone: [facility] 02-21-2025 13:59-0400 Systolic blood pressure 146 mm[Hg] Treatment Wstr Work Phone: [facility] 02-16-2025 10:35-0400 Body temperature 98.71 [degF] Treatment Wstr Work Phone: [facility] 02-16-2025 10:35-0400 Diastolic blood pressure 84 mm[Hg] Treatment Wstr Work Phone: [facility] 02-16-2025 10:35-0400 Heart rate 66 /min Treatment Wstr Work Phone: [facility] 02-16-2025 10:35-0400 SaO2% (BldA) [Mass fraction] 100 % Treatment Wstr Work Phone: [facility] 02-16-2025 10:35-0400 Systolic blood pressure 135 mm[Hg] Treatment Wstr Work Phone: [facility] 02-14-2025 07:47-0400 Body temperature 97.39 [degF] Treatment Wstr Work Phone: [facility] 02-14-2025 07:47-0400 Diastolic blood pressure 83 mm[Hg] Treatment Wstr Work Phone: [facility] 02-14-2025 07:47-0400 Heart rate 79 /min Treatment Wstr Work Phone: [facility] 02-14-2025 07:47-0400 SaO2% (BldA) [Mass fraction] 100 % Treatment Wstr Work Phone: [facility] 02-14-2025 07:47-0400 Systolic blood pressure 137 mm[Hg] Treatment Wstr Work Phone: [facility] 02-10-2025 10:23-0400 Body height 156.3 cm Petramckenna Grant Work Phone: [facility] 02-10-2025 10:23-0400 Body mass index (BMI) [Ratio] 43.29 kg/m2 Petramckenna Grant Work Phone: [facility] 02-10-2025 10:23-0400 Body temperature 98.1 [degF] Petarmckenna Grant Work Phone: [facility] 02-10-2025 10:23-0400 Body weight 105.69 kg Petra Grant Work Phone: [facility] 02-10-2025 10:23-0400 Diastolic blood pressure 86 mm[Hg] Petramckenna Grant Work Phone: [facility] 02-10-2025 10:23-0400 Heart rate 75 /min Petramckenna Grant Work Phone: [facility] 02-10-2025 10:23-0400 SaO2% (BldA) [Mass fraction] 100 % Petra Grant Work Phone: [facility] 02-10-2025 10:23-0400 Systolic blood pressure 144 mm[Hg] Petra Grant Work Phone: [facility] 02-03-2025 09:29-0400 Body height 155.6 cm Mine Doty MD Work Phone: [facility] 02-03-2025 09:29-0400 Body mass index (BMI) [Ratio] 43.29 kg/m2 Mine Doty MD Work Phone: [facility] 02-03-2025 09:29-0400 Body weight 104.78 kg Mine Doty MD Work Phone: [facility] 02-03-2025 09:29-0400 Diastolic blood pressure 74 mm[Hg] Mine Doty MD Work Phone: [facility] 02-03-2025 09:29-0400 Systolic blood pressure 136 mm[Hg] Mine Doty MD Work Phone: [facility] 01-31-2025 10:51-0400 Body height 155.5 cm Shena Dwyer PA-C Work Phone: [facility] 01-31-2025 10:51-0400 Body mass index (BMI) [Ratio] 43.15 kg/m2 Shena Dwyer PA-C Work Phone: [facility] 01-31-2025 10:51-0400 Body temperature 97.3 [degF] Shena Dwyer PA-C Work Phone: [facility] 01-31-2025 10:51-0400 Body weight 104.33 kg Shena Dwyer PA-C Work Phone: [facility] 01-31-2025 10:51-0400 Diastolic blood pressure 82 mm[Hg] Shena Dwyer PA-C Work Phone: [facility] 01-31-2025 10:51-0400 Heart rate 80 /min Shena Dwyer PA-C Work Phone: [facility] 01-31-2025 10:51-0400 Respiratory rate 18 /min Shena Dwyer PA-C Work Phone: [facility] 01-31-2025 10:51-0400 SaO2% (BldA) [Mass fraction] 100 % Shena Dwyer PA-C Work Phone: [facility] 01-31-2025 10:51-0400 Systolic blood pressure 112 mm[Hg] Shena Dwyer PA-C Work Phone: [facility] 01-20-2025 08:27-0500 Body height 156.2 cm Mine Doty MD Work Phone: [facility] 01-20-2025 08:27-0500 Body mass index (BMI) [Ratio] 42.94 kg/m2 Mine Doty MD Work Phone: [facility] 01-20-2025 08:27-0500 Body weight 104.78 kg Mine Doty MD Work Phone: [facility] 01-20-2025 08:27-0500 Diastolic blood pressure 82 mm[Hg] Mine Doty MD Work Phone: [facility] 01-20-2025 08:27-0500 Systolic blood pressure 124 mm[Hg] Mine Doty MD Work Phone: [facility] 12-02-2024 11:42-0500 Body height 158.8 cm Sanket Cruz MD Work Phone: [facility] 12-02-2024 11:42-0500 Body mass index (BMI) [Ratio] 41.76 kg/m2 Sanket Cruz MD Work Phone: [facility] 12-02-2024 11:42-0500 Body weight 105.23 kg Sanket Cruz MD Work Phone: [facility] 12-02-2024 11:42-0500 Diastolic blood pressure 80 mm[Hg] Sanket Cruz MD Work Phone: [facility] 12-02-2024 11:42-0500 Heart rate 71 /min Sanket Cruz MD Work Phone: [facility] 12-02-2024 11:42-0500 SaO2% (BldA) [Mass fraction] 98 % Sanket Cruz MD Work Phone: [facility] 12-02-2024 11:42-0500 Systolic blood pressure 136 mm[Hg] Sanket Cruz MD Work Phone: [facility] 10-20-2024 13:43-0500 Body mass index (BMI) [Ratio] 43.4 kg/m2 Chapo Shore MD Work Phone: [facility] 10-20-2024 13:43-0500 Body temperature 97.9 [degF] Chapo Shore MD Work Phone: [facility] 10-20-2024 13:43-0500 Body weight 108.5 kg Chapo Shore MD Work Phone: [facility] 10-20-2024 13:43-0500 Diastolic blood pressure 80 mm[Hg] Chapo Shore MD Work Phone: [facility] 10-20-2024 13:43-0500 Heart rate 78 /min Chapo Shore MD Work Phone: [facility] 10-20-2024 13:43-0500 Respiratory rate 16 /min Chapo Shore MD Work Phone: [facility] 10-20-2024 13:43-0500 SaO2% (BldA) [Mass fraction] 100 % Chapo Shore MD Work Phone: [facility] 10-20-2024 13:43-0500 Systolic blood pressure 122 mm[Hg] Chapo Shore MD Work Phone: [facility] 11-08-2022 19:09-0500 Body height 157.48 cm MD Romulo Templeton [facility] Work Phone: 11-08-2022 19:09-0500 Body mass index (BMI) [Ratio] 48.1 kg/m2 MD Romulo Templeton [facility] Work Phone: 11-08-2022 19:09-0500 Body temperature 99.1 [degF] MD Romulo Templeton [facility] Work Phone: 11-08-2022 19:09-0500 Body weight 119.29 kg MD Romulo [place] [facility] Work Phone: 11-08-2022 19:09-0500 Diastolic blood pressure 75 mm[Hg] MD Romulo Templeton [facility] Work Phone: 11-08-2022 19:09-0500 Heart rate 121 /min MD Romulo Templeton [facility] Work Phone: 11-08-2022 19:09-0500 Respiratory rate 18 /min MD Romulo Templeton [facility] Work Phone: 11-08-2022 19:09-0500 SaO2% (BldA) [Mass fraction] 98 % MD Romulo Templeton [facility] Work Phone: 11-08-2022 19:09-0500 Systolic blood pressure 113 mm[Hg] MD Romulo Templeton [facility] Work Phone: 10-24-2022 10:30-0500 Body height 158.1 cm Sanket Cruz MD Work Phone: [facility] 10-24-2022 10:30-0500 Body weight 119.3 kg Sanket Cruz MD Work Phone: [facility] 10-24-2022 10:30-0500 Diastolic blood pressure 86 mm[Hg] Sanket Cruz MD Work Phone: [facility] 10-24-2022 10:30-0500 Heart rate 70 /min Sanket Cruz MD Work Phone: [facility] 10-24-2022 10:30-0500 Respiratory rate 16 /min Sanket Cruz MD Work Phone: [facility] 10-24-2022 10:30-0500 Systolic blood pressure 118 mm[Hg] Sanket Cruz MD Work Phone: [facility] 10-03-2022 15:45-0500 Body temperature 98 [degF] MD Romulo Templeton [facility] Work Phone: 10-03-2022 15:45-0500 Diastolic blood pressure 78 mm[Hg] MD Romulo Templeton [facility] Work Phone: 10-03-2022 15:45-0500 Heart rate 97 /min MD Romulo Templeton [facility] Work Phone: 10-03-2022 15:45-0500 Respiratory rate 14 /min MD Romulo Templeton [facility] Work Phone: 10-03-2022 15:45-0500 SaO2% (BldA) [Mass fraction] 99 % MD Romulo Templeton [facility] Work Phone: 10-03-2022 15:45-0500 Systolic blood pressure 124 mm[Hg] MD Romulo Templeton [facility] Work Phone: 05-30-2022 11:20-0400 Diastolic blood pressure 60 mm[Hg] Zenobia Sullinger DEPOSITING MACHINE OPERATOR.[employer] Work Phone: [facility] 05-30-2022 11:20-0400 Heart rate 64 /min Zenobia Sullinger DEPOSITING MACHINE OPERATOR.TYPESETTERS PRINTER Work Phone: [facility] 05-30-2022 11:20-0400 Respiratory rate 18 /min Zenobia Sullinger DEPOSITING MACHINE OPERATOR.T[employer]ETTER[employer] PRINTER Work Phone: [facility] 05-30-2022 11:20-0400 SaO2% (BldA) [Mass fraction] 98 % Zenobia Sullinger DEPOSITING MACHINE OPERATOR.T[employer]ETTER[employer] PRINTER Work Phone: [facility] 05-30-2022 11:20-0400 Systolic blood pressure 128 mm[Hg] Zenobia Sullinger DEPOSITING MACHINE OPERATOR.T[employer]ETTER[employer] PRINTER Work Phone: [facility] 05-30-2022 08:38-0400 Body temperature 98.2 [degF] Zenobia Sullinger DEPOSITING MACHINE OPERATOR.TYP[employer]ETTER[employer] PRINTER Work Phone: [facility] 03-01-2022 09:52-0400 Body weight 120.66 kg Sanket Cruz MD Work Phone: [facility] 03-01-2022 09:52-0400 Diastolic blood pressure 84 mm[Hg] Sanket Cruz MD Work Phone: [facility] 03-01-2022 09:52-0400 Heart rate 78 /min Sanket Cruz MD Work Phone: [facility] 03-01-2022 09:52-0400 Respiratory rate 12 /min Sanket Cruz MD Work Phone: [facility] 03-01-2022 09:52-0400 Systolic blood pressure 126 mm[Hg] Sanket Cruz MD Work Phone: [facility] 02-14-2022 08:18-0400 Body weight 121.11 kg Mine Doty MD Work Phone: [facility] 02-14-2022 08:18-0400 Diastolic blood pressure 90 mm[Hg] Mine Doty MD Work Phone: [facility] 02-14-2022 08:18-0400 Systolic blood pressure 120 mm[Hg] Mine Doty MD Work Phone: [facility] Encounters Encounter Date Encounter Type Care Provider Facility Start: 05-12-2025 ambulatory [facility] Facility :[facility] Start: 05-10-2025 ambulatory [facility] Facility :[facility] Start: 05-10-2025 End: 05-10-2025 Subsequent hospital visit by physician [facility] Work Phone: Radiology Comment on above: Abnormal mammogram [ R92.8] Start: 05-05-2025 End: 05-05-2025 ambulatory BROOKE DUNCAN Facility:[facility] Start: 05-05-2025 Encounter for other preprocedural examination Tim Yip [facility] Start: 04-29-2025 End: 04-29-2025 Orders Only Petra Grant Work Phone: Hematology/Oncology Comment on above: Low iron (Primary Dx ); Iron deficiency anemia, unspecified iron deficiency anemia type; Iron deficiency anemia due to chronic blood loss Start: 04-28-2025 End: 04-28-2025 ambulatory Brooke Duncan MD Work Phone: NEUROLOGY Comment on above: Symptoms Start: 04-28-2025 End: 04-28-2025 Telephone encounter Brooke Duncan MD Work Phone: [facility] Comment on above: Senior Manager Mmcoe - O ther (MC message) Start: 04-26-2025 End: 04-26-2025 [facility]ulatory [facility] Facility[facility] Start: 04-22-2025 End: 04-22-2025 ambulatory [facility] Start: 04-21-2025 End: 04-21-2025 Patient encounter procedure Tim Yip MD Work Phone: OB/Gynecology Comment on above: Menorrhagia with reg ular cycle (Primary Dx); Iron deficiency anemia due to chronic blood loss; Fibroids, subserous; Deep dyspareunia Start: 04-21-2025 End: 04-21-2025 ambulatory SANKET CRUZ Facility:[facility] Start: 04-07-2025 End: 04-07-2025 Patient encounter procedure Brooke Duncan MD Work Phone: NEUROLOGY Comment on above: IIH (idiopathic intr acranial hypertension) (Primary Dx); Abnormal MRI; Pulsatile tinnitus, left ear; 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; Class 3 severe obesity with serious comorbidity and body mass index (BMI) of 40.0 to 44.9 in adult, unspecified obesity type Start: 04-07-2025 End: 04-07-2025 ambulatory BROOKE DUNCAN Facility:[facility] Start: 03-28-2025 End: 04-07-2025 ambulatory Tanya Vernon APRN.[employer] Work Phone: Neurology Comment on above: Lumbar Puncture Injection Start: 03-28-2025 End: 03-29-2025 Refill Mine Doty MD Work Phone: OB/Gynecology Comment on above: Med Change Request Start: 03-28-2025 End: 03-29-2025 Telephone encounter Neurology Provider [facility] Comment on above: Future Appointment ( New Patient [place] Any) Start: 03-24-2025 End: 03-25-2025 Follow-up encounter Tanya Vernon APRN.[employer] PR[employer] Work Phone: Neurology Start: 03-18-2025 ambulatory SANKET Martínez ty:[facility] Start: 03-11-2025 End: 03-11-2025 Refill Tanya Vernon APRN.[employer] PRINTER Work Phone: Neurology Comment on above: Med Change Request Start: 03-03-2025 End: 03-03-2025 Patient encounter procedure Sanket Cruz MD Work Phone: [facility] Comment on above: Acute otitis media, bilateral (Primary Dx); Right ear pain; Iron deficiency anemia due to chronic blood loss; Pseudotumor cerebri; Vitamin D deficiency; Inflammatory polyarthropathy (HCC); Fibroids, subserous Start: 03-03-2025 End: 03-03-2025 ambulatory [facility] Start: 03-02-2025 End: 03-23-2025 Admission to same day surgery center Tim Yip MD Work Phone: OB/Gynecology Comment on above: Surgery scheduling Start: 03-02-2025 End: 03-23-2025 ambulatory Tim Yip MD Work Phone: OB/Gynecology Start: 02-25-2025 End: 02-25-2025 Patient encounter procedure Sidra Doty APRN.[facility] Work Phone: [facility] Comment on above: Acute otitis media, left (Primary Dx) Start: 02-25-2025 End: 04-05-2025 ambulatory Treatment Rm 14 [facility] Work Phone: Hematology/Oncology Comment on above: Iron deficiency anem ia due to chronic blood loss (Primary Dx); Low iron Primary osteoarthrit is of right hip (Primary Dx); Iron deficiency anemia due to chronic blood loss; Low iron Start: 02-24-2025 End: 02-24-2025 ambulatory [facility] Start: 02-24-2025 End: 02-24-2025 Patient encounter procedure Tim Yip MD Work Phone: OB/Gynecology Comment on above: Iron deficiency anem ia due to chronic blood loss (Primary Dx); Menorrhagia with regular cycle; Fibroids, subserous; Deep dyspareunia; Chronic pelvic pain in female Start: 02-23-2025 End: 02-23-2025 ambulatory Treatment Rm 14 [facility] Work Phone: Hematology/Oncology Comment on above: Iron deficiency anem ia due to chronic blood loss (Primary Dx); Low iron Start: 02-22-2025 End: 02-22-2025 Telephone encounter Adelina CARPENTER Hematology/Oncology Comment on above: Social Work Services ; 1st Time Treatment Report Start: 02-21-2025 End: 02-21-2025 ambulatory Treatment Rm 15 [facility] [employer] Work Phone: Hematology/Oncology Comment on above: Iron deficiency anem ia due to chronic blood loss (Primary Dx); Low iron Start: 02-17-2025 End: 02-17-2025 ambulatory Tanya Vernon APRN.[employer] Work Phone: Neurology Comment on above: IIH (idiopathic intr acranial hypertension) (Primary Dx); Chronic intractable headache, unspecified headache type Start: 02-17-2025 End: 02-17-2025 Telemedicine consultation with patient Tanya Vernon APRN.[employer] Work Phone: Neurology Start: 02-16-2025 End: 02-16-2025 ambulatory Treatment Rm 15 [facility] [employer] Work Phone: Hematology/Oncology Comment on above: Iron deficiency anem ia due to chronic blood loss (Primary Dx); Low iron Start: 02-15-2025 End: 02-15-2025 Telephone encounter Damien Shaver MD Work Phone: Neurology Comment on above: Appointment Reschedu led; Appointment Cancelled Start: 02-14-2025 End: 02-14-2025 ambulatory Treatment Rm 14 [facility] [employer] Work Phone: Hematology/Oncology Comment on above: Iron deficiency anem ia due to chronic blood loss (Primary Dx); Low iron Start: 02-10-2025 End: 02-10-2025 ambulatory Petra Grant Work Phone: Hematology/Oncology Comment on above: Iron deficiency anem ia due to chronic blood loss (Primary Dx); Iron deficiency anemia, unspecified iron deficiency anemia type Start: 02-10-2025 End: 02-10-2025 Patient encounter procedure Petra Grant Work Phone: Hematology/Oncology Start: 02-09-2025 End: 02-09-2025 ambulatory Amaris Hopper RNdeck cadet [place] [id number] Comment on above: Blood Management Start: 02-03-2025 End: 02-03-2025 ambulatory SANKET CRUZ Facility:[facility] Start: 02-03-2025 End: 02-03-2025 Patient encounter procedure Mine Doty MD Work Phone: OB/Gynecology Comment on above: Encounter for screen ing for malignant neoplasm of cervix (Primary Dx); Special screening examination for human papillomavirus (HPV); Encounter for gynecological examination (general) (routine) without abnormal findings; Iron deficiency anemia, unspecified iron deficiency anemia type Start: 02-03-2025 End: 02-03-2025 Patient encounter status Mine Doty MD Work Phone: [facility] Start: 02-02-2025 End: 02-02-2025 ambulatory Shena Dwyer PA-C Work Phone: [facility] Comment on above: Urine test result Start: 02-01-2025 End: 02-01-2025 Follow-up encounter Shena Dwyer PA-C Work Phone: [facility] Start: 01-31-2025 End: 01-31-2025 Telephone encounter Ankur Sears [address] Start: 01-31-2025 End: 01-31-2025 Patient encounter procedure Shena Dwyer PA-C Work Phone: [facility] Comment on above: Well adult exam ([place] Dx); Vitamin D deficiency; Low iron; Morbid obesity (HCC); Inflammatory polyarthropathy (HCC); Elevated hemoglobin A1c; MVP (mitral valve prolapse); Anxiety with depression; Medication management; Chronic fatigue; Iron deficiency anemia, unspecified iron deficiency anemia type; Encounter for lipid screening for cardiovascular disease; Weight loss; Pseudotumor cerebri Start: 01-31-2025 End: 01-31-2025 Patient encounter status Shena Dwyer PA-C Work Phone: [facility] Start: 01-31-2025 End: 01-31-2025 ambulatory SANKET CRUZ Facility:[facility] Start: 01-27-2025 End: 01-27-2025 ambulatory Primary Care Physician [facility] Work Phone: Start: 01-27-2025 End: 01-27-[address] Erick Brownlee MD -Radiology, [facility] Work Phone: Start: 01-27-2025 End: 01-27-2025 ambulatory No Primary Care Physician Facility:[facility] Start: 01-21-2025 End: 03-23-2025 Follow-up encounter Mine Doty MD Work Phone: OB/Gynecology Start: 01-21-2025 End: 01-21-2025 ambulatory Physician Ne[facility] [employer] Work Phone: OB/Gynecology Start: 01-21-2025 End: 01-21-2025 Patient encounter procedure [employer] [facility] OB/Gynecology Start: 01-20-2025 End: 01-20-2025 ambulatory SANKET CRUZ Facility:[facility] Start: 01-20-2025 End: 01-20-2025 Patient encounter procedure Mine Doty MD Work Phone: OB/Gynecology Comment on above: Abnormal mammogram ( Primary Dx); Abnormal uterine bleeding (AUB); Malaise and fatigue Start: 01-03-2025 End: 01-03-2025 ambulatory SANKET CRUZ Facility:[facility] Start: 01-03-2025 End: 01-03-2025 Patient encounter procedure Erick Brownlee MD Work Phone: Orthopaedics Comment on above: Primary osteoarthrit is of right hip (Primary Dx); Chronic right hip pain Start: 12-30-2024 End: 12-31-2024 Telephone encounter Sanket Cruz MD Work Phone: [facility] Comment on above: Results Start: 12-28-2024 End: 12-28-2024 ambulatory SANKET CRUZ Facility:[facility] Start: 12-28-2024 End: 12-28-2024 Subsequent hospital visit by physician [facility] Work Phone: Radiology Comment on above: Chronic right hip pa in [M25.551, G89.29] Start: 12-02-2024 End: 12-02-2024 Patient encounter procedure Sanket Cruz MD Work Phone: [facility] Comment on above: Chronic right hip pa in (Primary Dx) Start: 12-02-2024 End: 12-02-2024 ambulatory SANKET CRUZ Facility:[facility] Start: 11-04-2024 End: 11-04-2024 Telephone encounter Funmilayo Davies APRN.[employer] Work Phone: [facility] Comment on above: Results Start: 11-03-2024 End: 11-03-2024 ambulatory SANKET Seema NANCY Facility:[facility] Start: 10-20-2024 End: 10-20-2024 ambulatory [facility]ET [facility] Facility:[facility] Start: 10-20-2024 End: 10-20-2024 Office outpatient visit 15 minutes Chapo Shore MD Work Phone: [facility] Comment on above: Otalgia, right ear ( Primary Dx); Fever, unspecified fever cause Start: 04-13-2024 Telephone encounter Funmilayo smith APRN.[employer]ET[employer] PRINTER Work Phone: [facility] Comment on above: Results Start: 04-13-2024 End: 04-13-2024 Subsequent hospital visit by physician [facility] Work Phone: Radiology Comment on above: Mass of left breast, unspecified quadrant [N63.20] Start: 10-08-2023 Telephone encounter Sanket Cruz MD Work Phone: [facility] Comment on above: Results Start: 10-08-2023 End: 10-08-2023 Subsequent hospital visit by physician [facility] 1 Work Phone: Radiology Comment on above: Abnormal mammogram [ R92.8] Start: 09-16-2023 Documentation procedure Mammog daniel Coordinator [facility] Start: 09-16-2023 Letter encounter Mammography Coordinator [facility] Department Start: 09-16-2023 Telephone encounter Sanket Cruz MD Work Phone: [facility] Comment on above: Results; Appointment Start: 09-15-2023 End: 09-15-2023 Subsequent hospital visit by physician Screen Mammo [facility] Mammogram Comment on above: Encounter for screen ing mammogram for breast cancer [Z12.31] Start: 11-16-2022 Refill Tanya johnson APRN.[employer] PRINTER Work Phone: Neurology Comment on above: Refill Request Start: 11-08-2022 End: 11-08-2022 Emergency department patient visit MD [facility] Start: 11-07-2022 ambulatory Sanket bojorquez MD Work Phone: [facility] Comment on above: Vertigo Start: 10-24-2022 End: 10-24-2022 Patient encounter procedure Sanket Cruz MD Work Phone: [facility] Comment on above: Well adult exam ([facility] Dx); Anxiety with depression; GERD without esophagitis; Elevated hemoglobin A1c; Inflammatory polyarthropathy (HCC); Pseudotumor cerebri; MVP (mitral valve prolapse); Acute otitis externa of right ear, unspecified type; Acute otitis media, right; Iron deficiency anemia, unspecified iron deficiency anemia type Start: 10-24-2022 End: 10-24-2022 Patient encounter status Sanket Cruz MD Work Phone: [facility] Start: 10-08-2022 End: 10-08-2022 ambulatory [facility] Work Phone: Start: 10-08-2022 End: 10-08-2022 Discharged Recurring MD Sebastian [facility] Therapy Start: 10-08-2022 Registered Recurring MD Sebastian [facility] Start: 10-03-2022 End: 10-03-2022 Patient encounter procedure MD Romulo Templeton [facility] Start: 09-07-2022 Refill Tanya johnson APRN.[employer] Work Phone: Neurology Comment on above: Refill Request Start: 08-15-2022 End: 08-15-2022 ambulatory Tanya Vernon APRN.[employer] Work Phone: Neurology Comment on above: Chronic intractable headache, unspecified headache type (Primary Dx); Pseudotumor cerebri; Sleep apnea-like behavior Start: 08-15-2022 End: 08-15-2022 Telemedicine consultation with patient Tanya Vernon APRN.[employer] PR[employer] Work Phone: [facility] Start: 07-01-2022 Refill Damien ahmadi MD Work Phone: Neurology Comment on above: Med Change Request Start: 05-30-2022 Telephone encounter Damien Shaver MD Work Phone: Neurology Comment on above: Results Start: 05-30-2022 End: 05-30-2022 Subsequent hospital visit by physician Zenobia Wetzel APRN.[employer] PR[employer] Work Phone: [id number] Comment on above: Pseudotumor cerebri [G93.2] Start: 05-23-2022 Orders Only Damien ahmadi MD Work Phone: Neurology Comment on above: Chronic intractable headache, unspecified headache type (Primary Dx); Pseudotumor Start: 05-23-2022 Refill Damien ahmadi MD Work Phone: Neurology Comment on above: error Start: 05-15-2022 Telephone encounter Damien Shaver MD Work Phone: Neurology Comment on above: Results - Mri Start: 05-13-2022 End: 05-13-2022 Subsequent hospital visit by physician Mri [facility] (I-Stat/1.5t) Work Phone: Radiology Comment on above: Pseudotumor cerebri [G93.2] Start: 03-01-2022 End: 03-01-2022 Patient encounter procedure Sanket Cruz MD Work Phone: [facility] Comment on above: GERD without esophag itis (Primary Dx); Anxiety with depression; Elevated hemoglobin A1c; Pseudotumor cerebri; Inflammatory polyarthropathy (HCC); Acute pain of both hips; Vitamin D deficiency; Morbid obesity (HCC); Low iron; Headaches; Heat intolerance; Encounter for screening for cardiovascular disorders; Medication management Start: 02-15-2022 ambulatory Mine Cardoso Work Phone: OB/Gynecology Comment on above: Question regarding U S FEMALE PELVIS TRANSVAG Start: 02-15-2022 Telephone encounter Mine boogie MD Work Phone: OB/Gynecology Comment on above: Fever Start: 02-15-2022 End: 02-15-2022 Subsequent hospital visit by physician [facility] Work Phone: Radiology Comment on above: Pelvic pain in femal e [R10.2] Start: 02-14-2022 End: 02-14-2022 Patient encounter procedure Mine Doty MD Work Phone: OB/Gynecology Comment on above: Pelvic pain in femal e (Primary Dx) Start: 02-11-2022 E-mail encounter fro m caregiver Mine Doty MD Work Phone: [facility] Start: 02-11-2022 Patient encounter procedure Mine Doty MD Work Phone: OB/Gynecology Comment on above: Request an Appointme nt Start: 06-25-2021 Patient encounter status Julien Doty MD Work Phone: [facility] Work Phone: Start: 12-12-2016 End: 01-14-2017 Patient requested procedure Funmilayo Davies APRN.[employer] PR[employer] Work Phone: [facility] End: 10-26-2014 Patient encounter status Funmilayo Davies APRN.[employer] PRINTER Work Phone: [facility] Procedures Date Procedure Procedure Detail Performing Clinician Start: 05-10-2025 Us breast uni real t eli with image limited Mine Doty MD Work Phone: Start: 05-10-2025 Digital breast tomosynthesis unilateral Mine Doty MD Work Phone: Start: 04-21-2025 Level iv surg pathol ogy gross&microscopic exam Tim Yip MD Work Phone: Start: 01-27-2025 Procedure on extremity No Primary Care Physician Start: 01-21-2025 Us pelvic nonobstetr ic real-time image complete Mine Doty MD Work Phone: Start: 10-20-2024 STREP A MOLECULAR (POC) Chapo Shore MD Work Phone: Start: 04-13-2024 Digital breast tomosynthesis unilateral Sanket Cruz MD Work Phone: Start: 10-08-2023 Us breast uni real t eli with image limited Sanket Cruz MD Work Phone: Start: 10-08-2023 Digital breast tomosynthesis unilateral Sanket Cruz MD Work Phone: Start: 09-15-2023 Screening mammograph y bi 2-view breast inc cad Bulk Order Provider Start: 05-30-2022 Glucose body fluid o ther than blood Damien Shaver MD Work Phone: Start: 05-13-2022 Mra head w/o contrst material Damien Shaver MD Work Phone: Start: 02-15-2022 Us pelvic nonobstetr ic image dcmtn limited/f/u Mine Doty MD Work Phone: Start: 12-12-2016 End: 08-12-2017 H/O: section History of delivery, currently Funmilayo Davies [employer] PRINTER Work Phone: Viral antigen assay MD Romulo Templeton Plan of Treatment Date Care Activity Detail Author Start: 02-03-2030 Screening for malign ant neoplasm of cervix Cervical Cancer Screening [facility] Start: 06-05-2027 Urine microalbumin profile [facility] Start: 02-07-2026 End: 02-07-2026 Patient encounter procedure 02/07/2026 1:20 PM EDT Office Visit OB/Gynecology [address] [place] [address] Mine Doty MD [address] [place] [id number] Annual OB/Gynecology Comment on above: Annual Start: 01-31-2026 Covid-19 Vaccine ( season) Covid-19 Vaccine ( season) [facility] Comment on above: Postponed from 07/25 (Declined at this time) Start: 11-03-2025 Screening for malign ant neoplasm of breast Mammogram Screening [facility] Start: 09-05-2025 End: 09-05-2025 Patient encounter procedure 09/05/2025 2:00 PM EDT Office Visit Family [facility] [address] [place], [place] [id number] Sanket Cruz MD [address] [place], [place] [address] 6 month follow up [facility] Comment on above: 6 month follow up Start: 07-25-2025 Influenza vaccination Influenz a Vaccine (Season Ended) [facility] Start: 06-22-2025 End: 06-22-2025 Patient encounter procedure 06/22/2025 10:50 AM EDT Office Visit OB/Gynecology [address] [place], [place] [id number] Tim Yip MD [address] [place], [place] [id number] POST OP OB/Gynecology Comment on above: POST OP Start: 06-06-2025 End: 06-06-2025 Patient encounter procedure 06/06/2025 9:00 AM EDT Office Visit [facility] Ophthalmology [address] [address] Ashkan Gomez, DO [address] [place], [place] [id number] [facility] Ophthalmology Comment on above: [facility] Start: 05-23-2025 Influenza vaccination Influenza Vacc ine (#1) [facility] Comment on above: Postponed from 07/25 (Declined at this time) Start: 05-19-2025 End: 05-19-2025 Patient encounter procedure 05/19/2025 9:20 AM EDT Office Visit OB/Gynecology [address] [place], [place] [id number] Tim Yip MD [address] [place], [place] [id number] POST OP OB/Gynecology Comment on above: POST OP Start: 05-10-2025 End: 05-10-2025 Patient encounter procedure Mammogram Comment on above: Abnormal mammogram [ R92.8] Comp- LT 6 month f/u Start: 05-05-2025 End: 05-05-2025 ambulatory 05/05/2025 10:20 AM EDT [facility] NEUROLOGY [address] [place] [address] Brooke Duncan MD [address] [place] [address] vv per JT NEUROLOGY Comment on above: vv per JT Start: 05-02-2025 End: 05-02-2025 Patient encounter procedure 05/02/2025 7:30 AM EDT Appointment Mammogram [address] [place] [address] Mammogram Start: 04-26-2025 End: 04-26-2025 Admission to same day surgery center 04/26/2025 10:30 AM EDT - 04/26/2025 11:30 AM EDT Surgery Angio [address] [place] [address] BACK JOINER [address] [place] [address] SPINAL PUNCTURE LUMBAR DIAGNOSTIC Angio Comment on above: SPINAL PUNCTURE LUMB AR DIAGNOSTIC Start: 04-26-2025 Subsequent hospital visit by physician 04/26/2025 10:30 AM EDT Hospital Encounter Angio [address] [place] [address] BACK JOINER [address] [place] [address] IIH (idiopathic intracranial hypertension) [G93.2] Angio Comment on above: IIH (idiopathic intr acranial hypertension) [G93.2] Start: 04-26-2025 End: 04-26-2025 Diagnostic lumbar spinal puncture MC ANGIO HB6 Start: 04-22-2025 End: 04-22-2025 ambulatory 04/22/2025 7:00 AM EDT Results Only Isa Reynoldswn [facility] Laboratory [address] [place] [address] CBC/IRON STUDIES/FERRITIN Isa [facility] Comment on above: CBC/IRON STUDIES/RADHAMES RITIN Start: 04-21-2025 End: 04-21-2025 Patient encounter procedure 04/21/2025 2:50 PM EDT Office Visit OB/Gynecology [address] [place] [address] Tim Yip MD [address] [place] [address] surgery 05/12 @ [facility] OB/Gynecology Comment on above: surgery 05/12 @ [facility] Start: 04-07-2025 End: 04-07-2025 Patient encounter procedure 04/07/2025 8:00 AM EDT Office Visit NEUROLOGY [address] [facility] [place] [address] Brooke Duncan MD [address] [place] [address] [facility] NEUROLOGY Comment on above: [facility] Start: 03-18-2025 End: 03-18-2025 Patient encounter procedure 03/18/2025 1:15 PM EDT Appointment [facility] [address] [place], [place] [id number] MRI BRAIN WO/W IVCON [facility] Comment on above: MRI BRAIN WO/W IVCON Start: 03-03-2025 End: 03-03-2025 Patient encounter procedure 03/03/2025 2:20 PM EDT Office Visit Family Medicine Isa [address] [place] [address] Sanket Cruz MD [address] [facility] [address] follow up Family Medicine Isa Comment on above: follow up Start: 02-25-2025 End: 02-25-2025 ambulatory 02/25/2025 1:30 PM EDT [facility] Hematology/Oncology [address] [place], [place] [address] 2ND FLOOR Hematology/Oncology Comment on above: 2ND FLOOR Start: 02-24-2025 End: 02-24-2025 Patient encounter procedure 02/24/2025 11:10 AM EDT Office Visit OB/Gynecology [address] [place] [address] Tim Yip MD [address] [place] [address] Consult for hysterectomy (02/08/25 [facility] OB/Gynecology Comment on above: Consult for hysterec nancy (02/08/25 [facility]) Start: 02-23-2025 End: 02-23-2025 ambulatory 02/23/2025 1:30 PM EDT Infusion Center Hematology/Oncology [address] [place] [address] 2ND FLOOR Hematology/Oncology Comment on above: 2ND FLOOR Start: 02-21-2025 End: 02-21-2025 ambulatory 02/21/2025 2:00 PM EDT Infusion Center Hematology/Oncology [address] [place], [place] [address] 2ND FLOOR Hematology/Oncology Comment on above: 2ND FLOOR Start: 02-18-2025 End: 02-18-2025 Patient encounter procedure 02/18/2025 3:20 PM EDT Office Visit Neurology [address] [place] [address] Damien Shaver Jr., MD [address] [place], [place] [id number] Pressure and fluid built back up in head Neurology Comment on above: Pressure and fluid b uilt back up in head Start: 02-17-2025 End: 02-17-2025 Patient encounter procedure 02/17/2025 8:00 AM EDT Office Visit Neurology [address] [phone] Brianna Rush APRN.TYPESETTERS PRINTER [address] [place] [address] Pressure and fluid built back up in head (no availability with established neurology team until June 2025) Neurology Comment on above: Pressure and fluid b uilt back up in head (no availability with established neurology team until June 2025) Start: 02-17-2025 End: 02-17-2025 ambulatory 02/17/2025 7:00 AM EDT [facility] Neurology [address] [address] Tanya Vernon APRN.TYPESETTERS PRINTER [address] [address] Pressure and fluid built back up in head (no availability with established neurology team until June 2025) Neurology Comment on above: Pressure and fluid b uilt back up in head (no availability with established neurology team until June 2025) Start: 02-16-2025 End: 02-16-2025 ambulatory 02/16/2025 10:30 AM EDT [facility] Hematology/Oncology [address] [place] [address] 2ND FLOOR Hematology/Oncology Comment on above: 2ND FLOOR Start: 02-10-2025 End: 02-10-2025 ambulatory Hematology/Oncology Comment on above: 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 [address] US follow up OB/Gynecology Comment on above: US follow up Start: 01-31-2025 End: 05-02-2025 25-hydroxyvitamin D3 [Mass/volume] in Serum or Plasma [facility] Comment on above: Expected: 01/31/2025 , Expires: 05/02/2025 Start: 01-31-2025 End: 05-02-2025 BREANN BY IFA WITH REFLEX [facility] Comment on above: Expected: 01/31/2025 , Expires: 05/02/2025 Start: 01-31-2025 End: 05-02-2025 CBC W Auto Differential panel - Blood [facility] Work Phone: Comment on above: Expected: 01/31/2025 , Expires: 05/02/2025 Start: 01-31-2025 End: 05-02-2025 Cobalamin (Vitamin B12) [Mass/volume] in Serum or Plasma [facility] Comment on above: Expected: 01/31/2025 , Expires: 05/02/2025 Start: 01-31-2025 End: 05-02-2025 Comprehensive metabolic 2000 panel - Serum or Plasma [facility] Comment on above: Expected: 01/31/2025 , Expires: 05/02/2025 Start: 01-31-2025 End: 05-02-2025 Folate [Mass/volume] in Serum or Plasma [facility] Comment on above: Expected: 01/31/2025 , Expires: 05/02/2025 Start: 01-31-2025 End: 05-02-2025 Hemoglobin A1c in Blood [facility] Comment on above: Expected: 01/31/2025 , Expires: 05/02/2025 Start: 01-31-2025 End: 05-02-2025 LIPID PANEL, NONFASTING [facility] Comment on above: Expected: 01/31/2025 , Expires: 05/02/2025 Start: 01-31-2025 End: 05-02-2025 Urinalysis complete panel - Urine [facility] Comment on above: Expected: 01/31/2025 , Expires: 05/02/2025 Start: 01-31-2025 End: 01-31-2025 Patient encounter procedure 01/31/2025 11:40 AM EDT Office Visit Family Medicine Isa [address] [place] [id number] Shena Dwyer PA-C [address] [facility] [place] [phone] physical Family Medicine Isa Comment on above: physical Start: 01-21-2025 End: 01-21-2025 ambulatory 01/21/2025 8:30 AM EST Procedure OB/Gynecology [address] [place] [address] Remote, Physician Neonatology [facility] [address] [place] [address] Abnormal uterine bleeding (AUB) [N93.9] OB/Gynecology Comment on above: Abnormal uterine ble eding (AUB) [N93.9] Start: 01-20-2025 End: 04-21-2025 Ferritin [Mass/volume] in Serum or Plasma [facility] Comment on above: Expected: 01/20/2025 , Expires: 04/21/2025 Start: 01-20-2025 End: 04-21-2025 Iron and Iron binding capacity panel - Serum or Plasma [facility] Comment on above: Expected: 01/20/2025 , Expires: 04/21/2025 Start: 01-20-2025 End: 04-21-2025 Thyrotropin [Units/volume] in Serum or Plasma [facility] Comment on above: Expected: 01/20/2025 , Expires: 04/21/2025 Start: 01-20-2025 End: 01-20-2026 US Pelvis PELVIC US [facility] Anc Imaging Routine Abnormal uterine bleeding (AUB) Expected: 01/20/2025, Expires: 01/20/2026 [facility] Comment on above: Expected: 01/20/2025 , Expires: 01/20/2026 Start: 01-20-2025 End: 01-20-2025 Patient encounter procedure 01/20/2025 8:30 AM EST Office Visit OB/Gynecology [address] [place] [address] Mine Doty MD [address] [place] [id number] annual, last seen 2019 OB/Gynecology Comment on above: annual, last seen Start: 01-03-2025 End: 01-03-2025 Patient encounter procedure 01/03/2025 2:15 PM EST Office Visit Orthopaedics [address] [place] [id number] Erick Brownlee MD [address] [place] [address] Chronic right hip pain [M25.551, G89.29] Orthopaedics Comment on above: Chronic right hip pa in [M25.551, G89.29] Start: 11-03-2024 End: 11-03-2024 Patient encounter procedure Mammogram Comment on above: Comp- 6 month fu, BL now due, Mass of left breast, unspecified quadrant [N63.20] Mass of left breast, unspecified quadrant [N63.20] Start: 10-14-2024 End: 05-13-2025 MG Breast - bilateral Diagnostic SARATH DIAGNOSTIC BILATERAL Radiology Routine Mass of left breast, unspecified quadrant Expected: 10/14/2024, Expires: 05/13/2025 [facility] Work Phone: Comment on above: Expected: 10/14/2024 , Expires: 05/13/2025 Start: 10-14-2024 End: 05-13-2025 US Breast - left limited US BREAST LTD LEFT Radiology Routine Mass of left breast, unspecified quadrant Expected: 10/14/2024, Expires: 05/13/2025 [facility] Comment on above: Expected: 10/14/2024 , Expires: 05/13/2025 Start: 09-15-2024 Mammography Mammogram Screening [facility] Start: 09-15-2024 Screening for malign ant neoplasm of breast Mammogram Screening [facility] Start: 07-25-2024 Covid-19 Vaccine ( season) Covid-19 Vaccine () [facility] Start: 07-25-2024 Influenza vaccination [facility] Start: 04-08-2024 End: 11-07-2024 SARATH DIAGNOSTIC LEFT SARATH DIAGNOSTIC LEFT Radiology Routine Mass of left breast, unspecified quadrant Abnormal mammogram Expected: 04/08/2024, Expires: 11/07/2024 [facility] Work Phone: Comment on above: Expected: 04/08/2024 , Expires: 11/07/2024 Start: 04-08-2024 End: 11-07-2024 US BREAST LTD LEFT US BREAST LTD LEFT Radiology Routine Mass of left breast, unspecified quadrant Abnormal mammogram Expected: 04/08/2024, Expires: 11/07/2024 [facility] Work Phone: Comment on above: Expected: 04/08/2024 , Expires: 11/07/2024 Start: 02-24-2024 HPV TESTING HPV TESTING [facility] Start: 02-24-2024 PAP TESTING PAP TESTING [facility] Start: 02-24-2024 Screening for malign ant neoplasm of cervix [facility] Start: 10-24-2023 COVID-19 VACCINE (3 - Booster for Pfizer series) COVID-19 VACCINE (3 - Booster for Pfizer series) [facility] Comment on above: Postponed from 06/01 (Declined at this time) Start: 07-25-2023 Covid-19 Vaccine () Covid-19 Vaccine () [facility] Start: 07-25-2023 Influenza vaccination Influenza Vacc ine (#1) [facility] Start: 04-11-2023 End: 06-11-2023 CBC W Auto Differential panel - Blood CBC + DIFF Lab Routine Iron deficiency anemia, unspecified iron deficiency anemia type Expected: 04/11/2023, Expires: 06/11/2023 [facility] Work Phone: Comment on above: Expected: 04/11/2023 , Expires: 06/11/2023 Start: 04-11-2023 End: 06-11-2023 Hemoglobin A1c in Blood HGB A1C Lab Routine Elevated hemoglobin A1c Expected: 04/11/2023, Expires: 06/11/2023 [facility] Work Phone: Comment on above: Expected: 04/11/2023 , Expires: 06/11/2023 Start: 04-11-2023 End: 06-11-2023 Iron and Iron binding capacity panel - Serum or Plasma IRON + TIBC Lab Routine Iron deficiency anemia, unspecified iron deficiency anemia type Expected: 04/11/2023, Expires: 06/11/2023 [facility] Work Phone: Comment on above: Expected: 04/11/2023 , Expires: 06/11/2023 Start: 11-24-2022 End: 01-24-2023 Iron and Iron binding capacity panel - Serum or Plasma IRON + TIBC Lab Routine Iron deficiency anemia, unspecified iron deficiency anemia type Expected: 11/24/2022, Expires: 01/24/2023 [facility] Work Phone: Comment on above: Expected: 11/24/2022 , Expires: 01/24/2023 Start: 11-08-2022 [facility] Work Phone: Start: 10-03-2022 Patient referral [facility] Work Phone: Start: 08-16-2022 End: 10-16-2022 CBC W Auto Differential panel - Blood CBC + DIFF Lab Routine Low iron Medication management Expected: 08/16/2022, Expires: 10/16/2022 [facility] Work Phone: Comment on above: Expected: 08/16/2022 , Expires: 10/16/2022 Start: 08-16-2022 End: 10-16-2022 Hemoglobin A1c/Hemoglobin.total in Blood HGB A1C Lab Routine Elevated hemoglobin A1c Expected: 08/16/2022, Expires: 10/16/2022 [facility] Work Phone: Comment on above: Expected: 08/16/2022 , Expires: 10/16/2022 Start: 08-16-2022 End: 10-16-2022 IRON + TIBC IRON + TIBC Lab Routine Low iron Expected: 08/16/2022, Expires: 10/16/2022 [facility] Work Phone: Comment on above: Expected: 08/16/2022 , Expires: 10/16/2022 Start: 08-16-2022 End: 10-16-2022 LIPID PANEL, NONFASTING LIPID PANEL, NONFASTING Lab Routine Encounter for screening for cardiovascular disorders Expected: 08/16/2022, Expires: 10/16/2022 [facility] Work Phone: Comment on above: Expected: 08/16/2022 , Expires: 10/16/2022 Start: 08-16-2022 End: 10-16-2022 Magnesium [Mass/volume] in Serum or Plasma MAGNESIUM BLD Lab Routine GERD without esophagitis Medication management Expected: 08/16/2022, Expires: 10/16/2022 [facility] Work Phone: Comment on above: Expected: 08/16/2022 , Expires: 10/16/2022 Start: 08-16-2022 End: 10-16-2022 VITAMIN B12 BLOOD VITAMIN B12 BLOOD Lab Routine Medication management Expected: 08/16/2022, Expires: 10/16/2022 [facility] Work Phone: Comment on above: Expected: 08/16/2022 , Expires: 10/16/2022 Start: 08-16-2022 End: 10-16-2022 VITAMIN D 25 HYDROXY VITAMIN D 25 HYDROXY Lab Routine Vitamin D deficiency Expected: 08/16/2022, Expires: 10/16/2022 [facility] Work Phone: Comment on above: Expected: 08/16/2022 , Expires: 10/16/2022 Start: 07-25-2022 Influenza vaccination [facility] Start: 05-23-2022 End: 07-23-2022 Glucose [Mass/volume] in Cerebral spinal fluid GLUCOSE CSF Lab Routine Chronic intractable headache, unspecified headache type Pseudotumor Expected: 05/23/2022, Expires: 07/23/2022 [facility] Work Phone: Comment on above: Expected: 05/23/2022 , Expires: 07/23/2022 Start: 05-23-2022 End: 07-23-2022 Protein [Mass/volume] in Cerebral spinal fluid PROTEIN CSF Lab Routine Chronic intractable headache, unspecified headache type Pseudotumor Expected: 05/23/2022, Expires: 07/23/2022 [facility] Work Phone: Comment on above: Expected: 05/23/2022 , Expires: 07/23/2022 Start: 03-01-2022 End: 05-01-2022 Hemoglobin A1c/Hemoglobin.total in Blood [facility] Work Phone: Comment on above: Expected: 03/01/2022 , Expires: 05/01/2022 Start: 03-01-2022 End: 05-01-2022 T4 FREE/FREE THYROX [facility] Work Phone: Comment on above: Expected: 03/01/2022 , Expires: 05/01/2022 Start: 03-01-2022 End: 05-01-2022 Thyrotropin [Units/volume] in Serum or Plasma [facility] Work Phone: Comment on above: Expected: 03/01/2022 , Expires: 05/01/2022 Start: 09-06-2021 COVID-19 VACCINE (3 - Booster for Pfizer series) COVID-19 VACCINE (3 - Booster for Pfizer series) [facility] Start: 07-25-2021 Influenza vaccination INFLUENZA (#1) [facility] Start: 06-01-2021 COVID-19 VACCINE (3 - Booster for Pfizer series) COVID-19 VACCINE (3 - Booster for Pfizer series) [facility] Start: 1985 HEPATITIS B (1 of 3 - 3-dose series) HEPATITIS B (1 of 3 - 3-dose series) [facility] End: 04-29-2026 CBC W Auto Differential panel - Blood COMPLETE BLOOD COUNT AND DIFFERENTIAL Lab STAT Low iron Iron deficiency anemia, unspecified iron deficiency anemia type Iron deficiency anemia due to chronic blood loss Every 3 months for 4 Occurrences starting 04/29/2025 until 04/29/2026 [facility] Work Phone: Comment on above: Every 3 months for 4 Occurrences starting 04/29/2025 until 04/29/2026 Cell count panel - Cerebral spinal fluid CSF CELL COUNT Lab Routine Chronic intractable headache, unspecified headache type Pseudotumor Ordered: 05/23/2022 [facility] Work Phone: Comment on above: Ordered: 05/23/2022 Cell count panel - Cerebral spinal fluid CSF CELL COUNT Lab Routine IIH (idiopathic intracranial hypertension) Ordered: 03/29/2025 [facility] Comment on above: Ordered: 03/29/2025 CSF ROUT ANALYSIS CSF ROUT JOSÉ SIS Lab Routine IIH (idiopathic intracranial hypertension) Ordered: 03/29/2025 [facility] Work Phone: Comment on above: Ordered: 03/29/2025 End: 12-04-2025 DBT Breast - bilateral screening SARATH SCREENING W DIANN Radiology Routine Breast cyst, left 1 Occurrences starting 11/04/2024 until 12/04/2025 [facility] Work Phone: Comment on above: 1 Occurrences starti ng 11/04/2024 until 12/04/2025 Endometrial bx w/wo endocervix bx w/o dilat spx ENDOMETRIAL BIOPSY Procedures Routine Menorrhagia with regular cycle Ordered: 04/21/2025 [facility] Work Phone: Comment on above: Ordered: 04/21/2025 End: 04-29-2026 Ferritin [Mass/volume] in Serum or Plasma FERRITIN Lab Routine Low iron Iron deficiency anemia, unspecified iron deficiency anemia type Iron deficiency anemia due to chronic blood loss Every 3 months for 4 Occurrences starting 04/29/2025 until 04/29/2026 [facility] Comment on above: Every 3 months for 4 Occurrences starting 04/29/2025 until 04/29/2026 Glucose [Mass/volume ] in Cerebral spinal fluid GLUCOSE CSF Lab Routine IIH (idiopathic intracranial hypertension) Ordered: 03/29/2025 [facility] Comment on above: Ordered: 03/29/2025 End: 01-31-2026 Guidance for injection of Hip IMAGING GUIDED HIP INJECTION RIGHT Radiology Routine Chronic right hip pain Primary osteoarthritis of right hip 1 Occurrences starting 01/03/2025 until 01/31/2026 [facility] Work Phone: Comment on above: 1 Occurrences starti ng 01/03/2025 until 01/31/2026 End: 05-06-2026 Guidance for injection of Hip IMAGING GUIDED HIP INJECTION RIGHT Radiology Routine Primary osteoarthritis of right hip 1 Occurrences starting 04/05/2025 until 05/06/2026 [facility] Work Phone: Comment on above: 1 Occurrences starti ng 04/05/2025 until 05/06/2026 End: 04-29-2026 Iron and Iron binding capacity panel - Serum or Plasma IRON AND TIBC Lab Routine Low iron Iron deficiency anemia, unspecified iron deficiency anemia type Iron deficiency anemia due to chronic blood loss Every 3 months for 4 Occurrences starting 04/29/2025 until 04/29/2026 [facility] Comment on above: Every 3 months for 4 Occurrences starting 04/29/2025 until 04/29/2026 End: 10-15-2024 SARATH DIAGNOSTIC LEFT SARATH DIAGNOSTIC LEFT Radiology Routine Abnormal mammogram 1 Occurrences starting 09/16/2023 until 10/15/2024 [facility] Work Phone: Comment on above: 1 Occurrences starti ng 09/16/2023 until 10/15/2024 End: 02-19-2026 MG Breast - left Diagnostic for implant SARATH DIAGNOSTIC LEFT Radiology Routine Abnormal mammogram 1 Occurrences starting 01/20/2025 until 02/19/2026 [facility] Work Phone: Comment on above: 1 Occurrences starti ng 01/20/2025 until 02/19/2026 End: 03-19-2026 MR Brain WO and W contrast IV MRI BRAIN WO/W IVCON Radiology Routine IIH (idiopathic intracranial hypertension) 1 Occurrences starting 02/17/2025 until 03/19/2026 [facility] Work Phone: Comment on above: 1 Occurrences starti ng 02/17/2025 until 03/19/2026 End: 03-19-2026 MRA Head veins WO and W contrast IV MRV BRAIN WO/W IVCON Radiology Routine IIH (idiopathic intracranial hypertension) 1 Occurrences starting 02/17/2025 until 03/19/2026 [facility] Comment on above: 1 Occurrences starti ng 02/17/2025 until 03/19/2026 End: 03-19-2026 MRA Head vessels WO contrast MRA BRAIN WO IVCON Radiology Routine IIH (idiopathic intracranial hypertension) 1 Occurrences starting 02/17/2025 until 03/19/2026 [facility] Comment on above: 1 Occurrences starti ng 02/17/2025 until 03/19/2026 PAP TEST PAP TEST Lab Jeny kearns Encounter for screening for malignant neoplasm of cervix Special screening examination for human papillomavirus (HPV) 02/03/2025 10:06 AM EDT [facility] Work Phone: Patient referral [facility] Work Phone: PELVIC US WHI PELVIC US WHI An c Imaging Routine Pelvic pain in female Ordered: 02/14/2022 [facility] Work Phone: Comment on above: Ordered: 02/14/2022 Protein [Mass/volume ] in Cerebral spinal fluid PROTEIN CSF Lab Routine IIH (idiopathic intracranial hypertension) Ordered: 03/29/2025 [facility] Comment on above: Ordered: 03/29/2025 RF Guidance for flui d aspiration of Lumbar spine space IR LP FOR DRAINAGE (PRESSURE) Radiology Routine IIH (idiopathic intracranial hypertension) Ordered: 04/15/2025 [facility] Work Phone: Comment on above: Ordered: 04/15/2025 Therapeutic spinal puncture drainage csf LUMBAR PUNCTURE Procedures Routine Pseudotumor cerebri Ordered: 05/16/2022 [facility] Work Phone: Comment on above: Ordered: 05/16/2022 Therapeutic spinal puncture drainage csf LUMBAR PUNCTURE Procedures Routine IIH (idiopathic intracranial hypertension) Ordered: 03/29/2025 [facility] Comment on above: Ordered: 03/29/2025 End: 02-19-2026 US Breast - left limited US BREAST LTD LEFT Radiology Routine Abnormal mammogram 1 Occurrences starting 01/20/2025 until 02/19/2026 [facility] Comment on above: 1 Occurrences starti ng 01/20/2025 until 02/19/2026 End: 10-15-2024 US BREAST LTD LEFT US BREAST LTD LEFT Radiology Routine Abnormal mammogram 1 Occurrences starting 09/16/2023 until 10/15/2024 [facility] Work Phone: Comment on above: 1 Occurrences starti ng 09/16/2023 until 10/15/2024 End: 03-16-2023 Us pelvic nonobstetric image dcmtn limited/f/u US FEMALE PELVIS TRANSABD LTD Radiology Routine Pelvic pain in female 1 Occurrences starting 02/14/2022 until 03/16/2023 [facility] Work Phone: Comment on above: 1 Occurrences starti ng 02/14/2022 until 03/16/2023 End: 03-16-2023 Us transvaginal US FEMALE PELVIS TRANSVAG Radiology Routine Pelvic pain in female 1 Occurrences starting 02/14/2022 until 03/16/2023 [facility] Work Phone: Comment on above: 1 Occurrences starti ng 02/14/2022 until 03/16/2023 End: 01-01-2026 XR Pelvis and Hip - right AP and Lateral frog XR HIP GENERAL 3V PELV/AP/LAT RIGHT Radiology Routine Chronic right hip pain 1 Occurrences starting 12/02/2024 until 01/01/2026 [facility] Work Phone: Comment on above: 1 Occurrences starti ng 12/02/2024 until 01/01/2026 XR Pelvis and Hip - right AP and Lateral frog XR HIP GENERAL 3V PELV/AP/LAT RIGHT Radiology Routine Chronic right hip pain 12/28/2024 2:25 PM EST [facility] Work Phone: [facility] Immunizations Immunization Date Immunization Notes Care Provider Fa [facility] 08-24-2022 influenza, seasonal, injectable Sanket Cruz MD Work Phone: [facility] 08-24-2022 influenza virus vaccine, unspecified formulation Sanket Cruz MD Work Phone: [facility] 08-31-2020 influenza virus vaccine, unspecified formulation Sanket Cruz MD Work Phone: [facility] 09-17-2019 influenza virus vaccine, unspecified formulation Sanket Cruz MD Work Phone: [facility] 08-24-2018 influenza virus vaccine, unspecified formulation Sanket Cruz MD Work Phone: [facility] 06-05-2017 tetanus toxoid, redu jeff diphtheria toxoid, and acellular pertussis vaccine, adsorbed Mine Doty MD Work Phone: [facility] 10-12-2008 influenza virus vaccine, unspecified formulation Mine Doty MD Work Phone: [facility] Work Phone: Payers Date Payer Category Payer Self-pay [id number] 2023 Private Health Insurance [id number] 2019 Private Health Insurance AETNA A ETNA CHOICE POS II [id number] 2019-Present [phone] [address] [place] [address] POS [id number] 2019 Private Health Insurance [id number] Private Health Insurance AETNA [id number] Unknown ANTHEM [id number] Unknown [id number] Unknown [id number] Unknown [id number] Social History Date Type Detail Facility Start: 12-17-2011 End: 09-23-2022 Tobacco smoking status VAIS Never smoked tobacco [facility] Work Phone: Start: 02-14-2022 End: 05-05-2025 Alcohol intake Current drinker of alcohol (finding) [facility] Start: 04-18-2021 End: 10-23-2022 History SDOH Alcohol Frequency 2 [facility] Start: 04-18-2021 End: 10-23-2022 History SDOH Alcohol Std Drinks 1 [facility] Start: 12-12-2016 History SDOH Alcohol Comment Occasionally, not while [facility] Start: 04-18-2021 End: 10-23-2022 History SDOH Social Connections Living 3 [facility] Start: 04-18-2021 End: 10-23-2022 History SDOH Financial 4 [facility] Start: 04-17-2021 Education 15 [facility] Start: 1985 Sex Assigned At Not on file [facility] Start: 02-04-2022 End: 10-24-2022 Exposure to SARS-CoV-2 (event) Not sure [facility] Start: 12-17-2011 End: 09-23-2022 Tobacco use and exposure Smokeless tobacco non-user [facility] Work Phone: Start: 10-23-2022 History SDOH Social Connections Meetings 98 [facility] Start: 10-03-2022 Tobacco smoking status NHIS Unknown if ever smoked [facility] Work Phone: Start: 07-07-2017 None [facility] Start: 1985 Sex Assigned At Female [facility] Work Phone: Start: 10-22-2022 End: 04-24-2023 History of Social function [facility] Start: 10-22-2022 End: 04-24-2023 Social connection and isolation panel [facility] Do you belong to any clubs or organizations such as temple groups, unions, fraternal or athletic groups, or school groups? No [facility] How often do you att end meetings of the clubs or organizations you belong to? Patient refused [facility] Are you now , , , , never or living with a partner? [facility] How often to you hav e a drink containing alcohol? Monthly or less [facility] How many standard dr inks containing alcohol do you have on a typical day? 1 or 2 [facility] How often do you hav e 6 or more drinks on 1 occasion? Never [facility] How hard is it for y ou to pay for the very basics like food, housing, medical care, and heating Not very hard [facility] Do you feel stress - tense, restless, nervous, or anxious, or unable to sleep at night because your mind is troubled all the time - these days [OSQ] To some extent [facility] (I/We) worried wheildefonso er (my/our) food would run out before (I/we) got money to buy more. Never true [facility] The food that (I/we) bought just didn't last, and (I/we) didn't have money to get more. Sometimes true [facility] In the past 12 month s, was there a time when you were not able to pay the mortgage or rent on time? Yes [facility] Start: 04-06-2024 Gender identity Identifies as female gender (finding) [facility] Start: 04-06-2024 Sexual orientation Heterosexual (finding) [facility] How hard is it for y ou to pay for the very basics like food, housing, medical care, and heating Somewhat hard [facility] Do you feel stress - tense, restless, nervous, or anxious, or unable to sleep at night because your mind is troubled all the time - these days [OSQ] Rather much [facility] Start: 02-08-2025 Sex Female (finding) [facility] Functional Status Date Assessment Result Facility 06-23-2015 Are you deaf, or do you have serious difficulty hearing No 06/23/2015 8:44 AM Jordyn Biggs Ma No [facility] 06-23-2015 Are you blind, or do you have serious difficulty seeing, even when wearing glasses No 06/23/2015 8:44 AM Jordyn Biggs Ma No [facility] 06-23-2015 Do you have serious difficulty walking or climbing stairs No 06/23/2015 8:44 AM Jordyn Biggs Ma No [facility] 06-23-2015 Do you have difficul ty dressing or bathing No 06/23/2015 8:44 AM Jordyn Biggs Ma No [facility] 06-23-2015 Because of a physica l, mental, or emotional condition, do you have difficulty doing errands alone such as visiting a physician's office or shopping No 06/23/2015 8:44 AM Jordyn Biggs Ma No [facility] Mental Status Date Assessment Result Facility 06-23-2015 Because of a physica l, mental, or emotional condition, do you have serious difficulty concentrating, remembering, or making decisions No 06/23/2015 8:44 AM Jordyn Biggs Ma No [facility] Clinical Notes 05-09-2017 to 05-10-2025 Jeana Cochran RDMS - 05/10/2025 8:30 AM Lyla Fernandez Mammo Tech - 05/10/2025 8:00 AM EDTTelephone Encounter - Candice Powell RN - 04/28/2025 12:09 PM EDTPatient Instructions Note Date & Type Note Facility 05-10-2025 History of Present illness Narrative Radiology Service Progress Note PATIENT NAME: Michael Castro DATE OF SERVICE: May 10, 2025 TIME: 2:52 PM PATIENT IDENTITY VERIFICATION COMPLETED USING TWO (2) IDENTIFIERS: Name and Date of confirmed by patient verbally. FALL SCREENING: Has the patient had 2 falls in the last year or 1 fall with injury or currently using an Ambulatory Assistive Device (Walker, Cane, Wheelchair, Crutches, etc.)? No PATIENT GENDER DATA: Assigned female at . status: : No status: NO. PATIENT RELEVANT IMPLANT DATA REVIEWED: Not Applicable PATIENT PRESENTS WITH AN IMPLANTABLE OR ATTACHED HVAC MECHANIC: No RADIOLOGY DEPARTMENT: Ultrasound PERIPHERAL IV DATA: Not applicable SIGNED BY: Jeana Cochran RDMS RVT May 10, 2025 2:52 PM documented in this encounter [facility] 05-10-2025 History of Present illness Narrative Radiology Service Progress Note PATIENT NAME: Michael Castro DATE OF SERVICE: May 10, 2025 TIME: 9:13 AM PATIENT IDENTITY VERIFICATION COMPLETED USING TWO (2) IDENTIFIERS: Name and Date of confirmed by patient verbally. FALL SCREENING: Has the patient had 2 falls in the last year or 1 fall with injury or currently using an Ambulatory Assistive Device (Walker, Cane, Wheelchair, Crutches, etc.)? No PATIENT GENDER DATA: Assigned female at . status: : No status: NO. PATIENT RELEVANT IMPLANT DATA REVIEWED: Not Applicable PATIENT PRESENTS WITH AN IMPLANTABLE OR ATTACHED HVAC MECHANIC: No RADIOLOGY DEPARTMENT: Mammography PERIPHERAL IV DATA: Not applicable SIGNED BY: Karen Morales Tech May 10, 2025 9:13 AM documented in this encounter [facility] 04-28-2025 Telephone encounter Note Spoke with pt, reviewed message from provider- Please have her stay preferentially supine and hydrate for the next 1-2 days for starters. Caffeine ok. OP was 17. Probably low pressure. Pt verbalized understanding, will call pt tomorrow with update. [facility] 04-28-2025 Miscellaneous Notes Spoke with pt, reviewed message from provider- Please have her stay preferentially supine and hydrate for the next 1-2 days for starters. Caffeine ok. OP was 17. Probably low pressure. Pt verbalized understanding, will call pt tomorrow with update. Received MC message from pt, pt had LP on 04/26, yesterday around 3 pm when waking from a nap, pt experience intense headache, lowed whirring sound, like a helicopter in my head. Pain worse when standing or sitting, some relief when laying, whirring noise does not stop. Pt has slight neck stiffness, waves of nausea, light sensitivity and dizziness. documented in this encounter [facility] 04-28-2025 Telephone encounter Note See telephone encounter [facility] 04-28-2025 Miscellaneous Notes See telephone encounter documented in this encounter [facility] 04-28-2025 Telephone encounter Note Received MC message from pt, pt had LP on 04/26, yesterday around 3 pm when waking from a nap, pt experience intense headache, lowed whirring sound, like a helicopter in my head. Pain worse when standing or sitting, some relief when laying, whirring noise does not stop. Pt has slight neck stiffness, waves of nausea, light sensitivity and dizziness. [facility] 04-26-2025 Note [facility] Medical Records Department [address] [place] [address] History Physical Exam 04/26/25 1254 MR#: [id number] Acct: [id number] Name: MICHAEL CASTRO Rep #: [id number] : 1985 40 From: Tim Yip MD PCP: Care Physician,No Primary Status:PRE [place] [facility] [place] and Physical Date of Admission: 05/12/25 HPI: The patient is a 39 year old female presenting for pre-operative visit. She is scheduled for TLH, bilateral salpingectomy with left oophorectomy, for menorrhagia, fe def anemia, subserous fibroids, dyspareunia on 05/12/25. Procedure discussed along with risks, benefits and complications. Other alternatives discussed for management. Consent form signed? Yes. ? PAST MEDICAL HISTORY PAST MEDICAL HISTORYDiagnosisDate???Acute pain of both hips03/01/2022???Cymbalta has helped. ???Anxiety with dhzeitaega72/02/2021???Arthritis of right hip12/30/2024???X-ray 12/2024: mild?Elevated hemoglobin A1c07/26/2021???GERD without zdtsjiggrwq01/02/2021???Hip pain07/11/2014???History of 2019 novel coronavirus disease (COVID-19)11/01/2020???10/27/2020?? ?Inflammatory polyarthropathy (HCC)02/10/2014???Sees Dr. Sandoval ???Iron deficiency [id number]/24/2022???Low iron01/23/2021???Muscle spasm05/19/2013???MVP (mitral valve prolapse)02/10/2014???On 2 D echo 01/2014 ???Pain in joint, ankle and foot02/19/2012???Pseudotumor cerebri?Right hip pain06/25/2021???Saw Ortho (Dr. Brownlee) Told bone on bone.???Routine gynecological examination?Dr Doty???Valvular heart jhiokjr7502/10/2014???2D echo 01/2014: 1+ MVI and TI ???Vitamin D gpezviyvzz19/20/2014 ? PAST SURGICAL HISTORY PAST SURGICAL HISTORYProcedureLateralityDate???2 D ECHO (EXEP)?EF=60%, mild MVP, +1 MVI and TI??? DELIVERY ONLY?, low cervical??? DELIVERY ONLY???07/07/2017???LIGATE FALLOPIAN TUBE???2017???at csection???PAST SURGICAL HISTORY OF???08/2000???TENDON REPAIR RIGHT WRIST???STRESS ECHO???02/13/2021???normal???TONSI LLECTOMY PRIMARY/SECONDARY ? CURRENT MEDICATIONS Current Outpatient MedicationsMedicationSigDispenseRe fill???norethindrone (AYGESTIN) 5 mg tabletTAKE 1 TABLET BY MOUTH EVERY DAY90 tablet3???zonisamide (ZONEGRAN) 50 mg capsuleTake 1 capsule by mouth once daily.90 capsule0???acetaminophen (TYLENOL ARTHRITIS ORAL)Take 2 tablets by mouth two times a day as needed.?meloxicam (MOBIC) 15 mg tabletTake 1 tablet by mouth once daily.30 tablet6???No current facility-administered medications for this visit. ? ALLERGIES: Diamox [Acetazolamide] ??? PERSONAL HISTORY: SOCIAL HISTORY Social History???Tobacco Use???Smoking status:Never???Smokeless tobacco:NeverVaping Use???Vaping status:Never UsedSubstance Use Topics???Alcohol use:Yes?Comment: Occasionally, not while ???Drug use:No ??? FAMILY HISTORY: FAMILY HISTORY FAMILY HISTORY ProblemRelationAge of Onset???SeizuresMother? tonic-clonic, quiescent off medication???No Known ProblemsFather?No Known ProblemsSister?No Known ProblemsSister?No Known ProblemsSister?No Known ProblemsBrother?No Known ProblemsBrother?No Known ProblemsBrother?COPDMaternal Grandmother?DiabetesMaternal Grandfather?HypertensionMater nal Grandfather?HeartMaternal Grandfather? had a difibulator???HypertensionPaternal Grandmother?other (Other)Paternal Grandmother? No breast/hand bobbin cleaner cancer???AneurysmPaternal Grandfather?other (cask gene mutation)Daughter?Coronary Artery DiseaseNo Family History? REVIEW OF SYMPTOMS: GENERAL: denies fevers or chills ENDOCRINOLOGY: has not been on steroids Cardiology : denies palpitations or chest pain Respiratory: denies SOB or cough Hematology: denies history of prolonged bleeding or easy bruising or VTE Allergy: Denies history of personal or family history of allergy to anesthesia ??? PHYSICAL EXAMINATION: ??? VITALS: Blood pressure 134/90, height 157.5 cm (5' 2), weight 104.3 kg (230 lb), last menstrual period 02/10/2025. ??? GENERAL: The patient is well nourished, well hydrated in no acute distress. , The patient is oriented to time, place, and person. NECK: Supple. No lynphadenopathy, normal thyroid, no thyromegaly. LUNGS: Clear to auscultation bilaterally. no wheezes, rhonchi or rales HEART: Regular rate and rhythm, Normal heart sounds, and No murmurs or gallops ??? Pelvic US: 01/21/25 Uterus Uterus: Visualized Uterus position: anteverted cervix, axial fundus Description of uterine malformations: none Myometrium: heterogeneous Endometrium: homogenous, borders of the endo not well defined Cervix details: cystic lesions identified suggesting superficial Nabothian cysts Uterus length 107 mm Uterus width 58 mm Uterus heig (more content not included)... [facility] 04-26-2025 History of Present illness Narrative Michael Castro is a 40 year old female who presents for problem visit for discussion of heavy menses.. HPI: 40 YOf w/ heavy menses, cram;ping, deep dyspareunia. No new c/o today. Aygestin helped slow bleeding. No new c/o. OB History Gravida4 Para2 Term1 Preterm1 AB2 Living2 SAB1 IAB0 Ectopic0 Multiple0 Live Births2 Convex Grinder History LMP: 02/10/2025 (Exact Date), Having periods Age at Menarche: 8 Age at First : Age at Menopause: Convex Grinder History Comments: Sexual Activity: Yes; Male; one clean tatoo, no transfusions Contraception: Tubal Ligation Menstrual Tracking History Flowsheet Row Office Visit from 01/20/2025 in OB/Gynecology Period Cycle (Days) 6 Period Duration (Days) 6 Menstrual Flow Heavy PAST MEDICAL HISTORY Diagnosis Date Acute pain of both hips 03/01/2022 Cymbalta has helped. Anxiety with depression 06/25/2021 Arthritis of right hip 12/30/2024 X-ray 12/2024: mild Elevated hemoglobin A1c 07/26/2021 GERD without esophagitis 06/25/2021 Hip pain 07/11/2014 History of 2019 novel coronavirus disease (COVID-19) 11/01/2020 10/27/2020 Inflammatory polyarthropathy (HCC) 02/10/[address] Sandoval Iron deficiency anemia 10/24/2022 Low iron 01/23/2021 Muscle spasm 05/19/2013 MVP (mitral valve prolapse) 02/10/2014 On 2 D echo 01/2014 Pain in joint, ankle and foot 02/19/2012 Pseudotumor cerebri Right hip pain 06/25/2021 Saw Ortho (Dr. Brownlee) Told bone on bone. Routine gynecological examination Dr Doty Valvular heart disease 02/10/2014 2D echo 01/2014: 1+ MVI and TI Vitamin D deficiency 02/10/2014 PAST SURGICAL HISTORY Procedure Laterality Date 2D ECHO (EXEP) EF=60%, mild MVP, +1 MVI and TI DELIVERY ONLY , low cervical DELIVERY ONLY 07/07/2017 LIGATE FALLOPIAN TUBE 2017 at csection PAST SURGICAL HISTORY OF 08/2000 TENDON REPAIR RIGHT WRIST STRESS ECHO 02/13/2021 normal TONSILLECTOMY PRIMARY/SECONDARY <AGE 12 02/2014 Tonsillectomy FAMILY HISTORY Problem Relation Age of Onset Seizures Mother tonic-clonic, quiescent off medication No Known Problems Father No Known Problems Sister No Known Problems Sister No Known Problems Sister No Known Problems Brother No Known Problems Brother No Known Problems Brother COPD Maternal Grandmother Diabetes Maternal Grandfather Hypertension Maternal Grandfather Heart Maternal Grandfather had a difibulator Hypertension Paternal Grandmother other (Other) Paternal Grandmother No breast/hand bobbin cleaner cancer Aneurysm Paternal Grandfather other (cask gene mutation) Daughter Coronary Artery Disease No Family History Social History Tobacco Use Smoking status: Never Smokeless tobacco: Never Vaping Use Vaping status: Never Used Substance Use Topics Alcohol use: Yes Comment: Occasionally, not while Drug use: No No current facility-administered medications for this visit. No current outpatient medications on file. Facility-Administered Medications Ordered in Other Visits Medication Dose Route Frequency acetaminophen 650 mg tab(s) (TYLENOL) 650 mg ORAL q 4 H PRN ondansetron orally disintegrating 4 mg tab(s) (ZOFRAN ODT) 4 mg ORAL q 6 H PRN Allergies As of Date: 04/21/2025 Allergen Noted Reaction DIAMOX [ACETAZOLAMIDE] 05/16/2016 Other: See Comments Fully Assessed 04/07/2025 Allergies and current medication updated:Yes SENSITIVE EXAM: The sensitive examination was discussed with the Patient or Patient's Authorized Purchasing Internship. As applicable, any other physician, advance practice provider, medical student, or other health professional student that will be observing or involved in the sensitive examination for educational or training purposes was discussed with the Patient or Authorized Purchasing Internship. The Patient or Authorized Purchasing Internship has agreed to proceed with the sensitive examination. (Sensitive examination includes inspection and/or palpation of the breasts, pelvis, prostate and anorectal regions). EXAM: BP 134/90 Ht 5' 2 (1.58m) Wt 230 lb (104.3kg) LMP 02/10/2025 BMI 42.06 kg/(m^2). GENERAL: pleasant, female in no apparent distress HEENT: Normocephalic, atraumatic, mucus membranes moist, and no lesions ABDOMEN: soft, non-tender, no hernia, and no masses PELVIC: external genitalia normal, normal Bartholin's glands, urethra, [place]'s glands, no vulvar lesions, no cervical lesions, good vaginal support, physiologic discharge present, normal appearing perineal body and perianal region BIMANUAL: uterus normal size, shape and consistency, no adnexal masses, and non-tender ASSESSMENT AND PLAN: Assessment & Plan Iron deficiency anemia due to chronic blood loss cont. aygestin to control bleeding s/p IV fe Orders: SURGICAL PATHOLOGY Menorrhagia with regular cycle r/b/a to various options reviewed, desires to proceed w/ hysterectomy, decision for surgery today. Orders: ENDOMETRIAL BIOPSY SURGICAL PATHOLOGY Fibroids, subserous Orders: SURGICAL PATHOLOGY Tim Yip MD documented in this encounter [facility] 04-26-2025 Note HNO ID: [id number] Author: TIM YIP MD Service: ? Author Type: Physician Type: Progress Notes Filed: 04/26/2025 12:53 Note Text: Michael Castro is a 40 year old female who presents for problem visit for discussion of heavy menses.. HPI: 40 YOf w/ heavy menses, cram;ping, deep dyspareunia. No new c/o today. Aygestin helped slow bleeding. No new c/o. OB History Gravida4 Para2 Term1 Preterm1 AB2 Living2 SAB1 IAB0 Ectopic0 Multiple0 Live Births2 Convex Grinder History LMP: 02/10/2025 (Exact Date), Having periods Age at Menarche: 8 Age at First : Age at Menopause: Convex Grinder History Comments: Sexual Activity: Yes; Male; one clean tatoo, no transfusions Contraception: Tubal Ligation Menstrual Tracking History Flowsheet Row Office Visit from 01/20/2025 in OB/Gynecology Period Cycle (Days) 6 Period Duration (Days) 6 Menstrual Flow Heavy PAST MEDICAL HISTORY Diagnosis Date Acute pain of both hips 03/01/2022 Cymbalta has helped. Anxiety with depression 06/25/2021 Arthritis of right hip 12/30/2024 X-ray 12/2024: mild Elevated hemoglobin A1c 07/26/2021 GERD without esophagitis 06/25/2021 Hip pain 07/11/2014 History of 2019 novel coronavirus disease (COVID-19) 11/01/2020 10/27/2020 Inflammatory polyarthropathy (HCC) 02/10/[address] Sandoval Iron deficiency anemia 10/24/2022 Low iron 01/23/2021 Muscle spasm 05/19/2013 MVP (mitral valve prolapse) 02/10/2014 On 2 D echo 01/2014 Pain in joint, ankle and foot 02/19/2012 Pseudotumor cerebri Right hip pain 06/25/2021 Saw Ortho (Dr. Brownlee) Told bone on bone. Routine gynecological examination Dr Doty Valvular heart disease 02/10/2014 2D echo 01/2014: 1+ MVI and TI Vitamin D deficiency 02/10/2014 PAST SURGICAL HISTORY Procedure Laterality Date 2D ECHO (EXEP) EF=60%, mild MVP, +1 MVI and TI DELIVERY ONLY , low cervical DELIVERY ONLY 07/07/2017 LIGATE FALLOPIAN TUBE 2017 at csection PAST SURGICAL HISTORY OF 08/2000 TENDON REPAIR RIGHT WRIST STRESS ECHO 02/13/2021 normal TONSILLECTOMY PRIMARY/SECONDARY Tonsillectomy FAMILY HISTORY Problem Relation Age of Onset Seizures Mother tonic-clonic, quiescent off medication No Known Problems Father No Known Problems Sister No Known Problems Sister No Known Problems Sister No Known Problems Brother No Known Problems Brother No Known Problems Brother COPD Maternal Grandmother Diabetes Maternal Grandfather Hypertension Maternal Grandfather Heart Maternal Grandfather had a difibulator Hypertension Paternal Grandmother other (Other) Paternal Grandmother No breast/hand bobbin cleaner cancer Aneurysm Paternal Grandfather other (cask gene mutation) Daughter Coronary Artery Disease No Family History Social History Tobacco Use Smoking status: Never Smokeless tobacco: Never Vaping Use Vaping status: Never Used Substance Use Topics Alcohol use: Yes Comment: Occasionally, not while Drug use: No No current facility-administered medications for this visit. No current outpatient medications on file. Facility-Administered Medications Ordered in Other Visits Medication Dose Route Frequency acetaminophen 650 mg tab(s) (TYLENOL) 650 mg ORAL q 4 H PRN ondansetron orally disintegrating 4 mg tab(s) (ZOFRAN ODT) 4 mg ORAL q 6 H PRN Allergies As of Date: 04/21/2025 Allergen Noted Reaction DIAMOX [ACETAZOLAMIDE] 05/16/2016 Other: See Comments Fully Assessed 04/07/2025 Allergies and current medication updated:Yes SENSITIVE EXAM: The sensitive examination was discussed with the Patient or Patient's Authorized Purchasing Internship. As applicable, any other physician, advance practice provider, medical student, or other health professional student that will be observing or involved in the sensitive examination for educational or training purposes was discussed with the Patient or Authorized Purchasing Internship. The Patient or Authorized Purchasing Internship has agreed to proceed with the sensitive examination. (Sensitive examination includes inspection and/or palpation of the breasts, pelvis, prostate and anorectal regions). EXAM: BP 134/90 Ht 5' 2 (1.58m) Wt 230 lb (104.3kg) LMP 02/10/2025 BMI 42.06 kg/(m2). GENERAL: pleasant, female in no apparent distress HEENT: Normocephalic, atraumatic, mucus membranes moist, and no lesions ABDOMEN: soft, non-tender, no hernia, and no masses PELVIC: external genitalia normal, normal Bartholin's glands, urethra, [place]'s glands, no vulvar lesions, no cervical lesions, good vaginal support, physiologic discharge present, normal appearing perineal body and perianal region BIMANUAL: uterus normal size, shape and consistency, no adnexal masses, and non-tender ASSESSMENT AND PLAN: Assessment AND Plan Iron deficiency anemia due to chronic blood loss cont. aygestin to control bleeding s/p IV fe Orders: SURGICAL PATHOLOGY Menorrhagia with reg (more content not included)... [facility] 04-21-2025 History and physical note Pre-Op History and Physical HPI: The patient is a 39 year old female presenting for pre-operative visit. She is scheduled for TLH, bilateral salpingectomy with left oophorectomy, for menorrhagia, fe def anemia, subserous fibroids, dyspareunia on 05/12/25. Procedure discussed along with risks, benefits and complications. Other alternatives discussed for management. Consent form signed? Yes. PAST MEDICAL HISTORY Diagnosis Date Acute pain of both hips 03/01/2022 Cymbalta has helped. Anxiety with depression 06/25/2021 Arthritis of right hip 12/30/2024 X-ray 12/2024: mild Elevated hemoglobin A1c 07/26/2021 GERD without esophagitis 06/25/2021 Hip pain 07/11/2014 History of 2019 novel coronavirus disease (COVID-19) 11/01/2020 10/27/2020 Inflammatory polyarthropathy (HCC) 02/10/[address] Sandoval Iron deficiency anemia 10/24/2022 Low iron 01/23/2021 Muscle spasm 05/19/2013 MVP (mitral valve prolapse) 02/10/2014 On 2 D echo 01/2014 Pain in joint, ankle and foot 02/19/2012 Pseudotumor cerebri Right hip pain 06/25/2021 Saw Ortho (Dr. Brownlee) Told bone on bone. Routine gynecological examination Dr Doty Valvular heart disease 02/10/2014 2D echo 01/2014: 1+ MVI and TI Vitamin D deficiency 02/10/2014 PAST SURGICAL HISTORY Procedure Laterality Date 2D ECHO (EXEP) EF=60%, mild MVP, +1 MVI and TI DELIVERY ONLY , low cervical DELIVERY ONLY 07/07/2017 LIGATE FALLOPIAN TUBE 2017 at csection PAST SURGICAL HISTORY OF 08/2000 TENDON REPAIR RIGHT WRIST STRESS ECHO 02/13/2021 normal TONSILLECTOMY PRIMARY/SECONDARY Tonsillectomy Current Outpatient Medications Medication Sig Dispense Refill norethindrone (AYGESTIN) 5 mg tablet TAKE 1 TABLET BY MOUTH EVERY DAY 90 tablet 3 zonisamide (ZONEGRAN) 50 mg capsule Take 1 capsule by mouth once daily. 90 capsule 0 acetaminophen (TYLENOL ARTHRITIS ORAL) Take 2 tablets by mouth two times a day as needed. meloxicam (MOBIC) 15 mg tablet Take 1 tablet by mouth once daily. 30 tablet 6 No current facility-administered medications for this visit. ALLERGIES: Diamox [Acetazolamide] PERSONAL HISTORY: Social History Tobacco Use Smoking status: Never Smokeless tobacco: Never Vaping Use Vaping status: Never Used Substance Use Topics Alcohol use: Yes Comment: Occasionally, not while Drug use: No FAMILY HISTORY: FAMILY HISTORY Problem Relation Age of Onset Seizures Mother tonic-clonic, quiescent off medication No Known Problems Father No Known Problems Sister No Known Problems Sister No Known Problems Sister No Known Problems Brother No Known Problems Brother No Known Problems Brother COPD Maternal Grandmother Diabetes Maternal Grandfather Hypertension Maternal Grandfather Heart Maternal Grandfather had a difibulator Hypertension Paternal Grandmother other (Other) Paternal Grandmother 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 GENERAL: The patient is well nourished, well hydrated in no acute distress. , The patient is oriented to time, place, and person. NECK: Supple. No lynphadenopathy, normal thyroid, no thyromegaly. LUNGS: Clear to auscultation bilaterally. no wheezes, rhonchi or rales HEART: Regular rate and rhythm, Normal heart sounds, and No murmurs or gallops Pelvic US: 01/21/25 Uterus Uterus: Visualized Uterus position: anteverted cervix, axial fundus Description of uterine malformations: none Myometrium: heterogeneous Endometrium: homogenous, borders of the endo not well defined Cervix details: cystic lesions identified suggesting superficial Nabothian cysts Uterus length 107 mm Uterus width 58 mm Uterus height 45 mm Uterus Vol 147.0 cm Endometrial thickness, total 4.0 mm Fibroids: Fibroids identified Uterine fibroid D1 11 mm Uterine fibroid D2 11 mm Uterine fibroid D3 13 mm Uterine fibroid mean 11.7 mm Uterine fibroid vol 0.824 cm Uterine fibroids findings: Left lateral posterior wall. Subserous Right Ovary Rt ovary: Visualized Rt ovary morphology: premenopausal normal follicular Rt ovary D1 33 mm Rt ovary D2 17 mm Rt ovary D3 14 mm Rt ovary Vol 4.0 cm Left Ovary Lt ovary: Visualized Lt ovary morphology: premenopausal normal follicular Lt ovary D1 32 mm Lt ovary D2 30 mm Lt ovary D3 19 mm Lt ovary Vol 9.6 cm Cul de Sac Visualized. no free fluid visualized IMPRESSION: menorrhagia, dyspareunia, fe def.anemia, subserosal fibroids PLAN: The risks/benefits/alternatives and personal involved for the planned TLH, LSO, right salpingectomy were reviewed with the patient. Her questions were answered to her satisfaction and she desires to proceed. Consent was signed. I reviewed with her postop instructions and expectations. I have reviewed and updated past medical and surgical history, medications and allergies Tim Yip M.D. [facility] 04-21-2025 History and physical note Pre-Op History and Physical HPI: The patient is a 39 year old female presenting for pre-operative visit. She is scheduled for TLH, bilateral salpingectomy with left oophorectomy, for menorrhagia, fe def anemia, subserous fibroids, dyspareunia on 05/12/25. Procedure discussed along with risks, benefits and complications. Other alternatives discussed for management. Consent form signed? Yes. PAST MEDICAL HISTORY Diagnosis Date Acute pain of both hips 03/01/2022 Cymbalta has helped. Anxiety with depression 06/25/2021 Arthritis of right hip 12/30/2024 X-ray 12/2024: mild Elevated hemoglobin A1c 07/26/2021 GERD without esophagitis 06/25/2021 Hip pain 07/11/2014 History of 2019 novel coronavirus disease (COVID-19) 11/01/2020 10/27/2020 Inflammatory polyarthropathy (HCC) 02/10/[address] Sandoval Iron deficiency anemia 10/24/2022 Low iron 01/23/2021 Muscle spasm 05/19/2013 MVP (mitral valve prolapse) 02/10/2014 On 2 D echo 01/2014 Pain in joint, ankle and foot 02/19/2012 Pseudotumor cerebri Right hip pain 06/25/2021 Saw Ortho (Dr. Brownlee) Told bone on bone. Routine gynecological examination Dr Doty Valvular heart disease 02/10/2014 2D echo 01/2014: 1+ MVI and TI Vitamin D deficiency 02/10/2014 PAST SURGICAL HISTORY Procedure Laterality Date 2D ECHO (EXEP) ' EF=60%, mild MVP, +1 MVI and TI DELIVERY ONLY , low cervical DELIVERY ONLY 07/07/2017 LIGATE FALLOPIAN TUBE 2017 at [facility] PAST SURGICAL HISTORY OF 08/2000 TENDON REPAIR RIGHT WRIST STRESS ECHO 02/13/2021 normal TONSILLECTOMY PRIMARY/SECONDARY <AGE 10 02/2014 Tonsillectomy Current Outpatient Medications Medication Sig Dispense Refill norethindrone (AYGESTIN) 5 mg tablet TAKE 1 TABLET BY MOUTH EVERY DAY 90 tablet 3 zonisamide (ZONEGRAN) 50 mg capsule Take 1 capsule by mouth once daily. 90 capsule 0 acetaminophen (TYLENOL ARTHRITIS ORAL) Take 2 tablets by mouth two times a day as needed. meloxicam (MOBIC) 15 mg tablet Take 1 tablet by mouth once daily. 30 tablet 6 No current facility-administered medications for this visit. ALLERGIES: Diamox [Acetazolamide] PERSONAL HISTORY: Social History Tobacco Use Smoking status: Never Smokeless tobacco: Never Vaping Use Vaping status: Never Used Substance Use Topics Alcohol use: Yes Comment: Occasionally, not while Drug use: No FAMILY HISTORY: FAMILY HISTORY Problem Relation Age of Onset Seizures Mother tonic-clonic, quiescent off medication No Known Problems Father No Known Problems Sister No Known Problems Sister No Known Problems Sister No Known Problems Brother No Known Problems Brother No Known Problems Brother COPD Maternal Grandmother Diabetes Maternal Grandfather Hypertension Maternal Grandfather Heart Maternal Grandfather had a difibulator Hypertension Paternal Grandmother other (Other) Paternal Grandmother 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 GENERAL: The patient is well nourished, well hydrated in no acute distress. , The patient is oriented to time, place, and person. NECK: Supple. No lynphadenopathy, normal thyroid, no thyromegaly. LUNGS: Clear to auscultation bilaterally. no wheezes, rhonchi or rales HEART: Regular rate and rhythm, Normal heart sounds, and No murmurs or gallops Pelvic US: 01/21/25 Uterus Uterus: Visualized Uterus position: anteverted cervix, axial fundus Description of uterine malformations: none Myometrium: heterogeneous Endometrium: homogenous, borders of the endo not well defined Cervix details: cystic lesions identified suggesting superficial Nabothian cysts Uterus length 107 mm Uterus width 58 mm Uterus height 45 mm Uterus Vol 147.0 cm Endometrial thickness, total 4.0 mm Fibroids: Fibroids identified Uterine fibroid D1 11 mm Uterine fibroid D2 11 mm Uterine fibroid D3 13 mm Uterine fibroid mean 11.7 mm Uterine fibroid vol 0.824 cm Uterine fibroids findings: Left lateral posterior wall. Subserous Right Ovary Rt ovary: Visualized Rt ovary morphology: premenopausal normal follicular Rt ovary D1 33 mm Rt ovary D2 17 mm Rt ovary D3 14 mm Rt ovary Vol 4.0 cm Left Ovary Lt ovary: Visualized Lt ovary morphology: premenopausal normal follicular Lt ovary D1 32 mm Lt ovary D2 30 mm Lt ovary D3 19 mm Lt ovary Vol 9.6 cm Cul de Sac Visualized. no free fluid visualized IMPRESSION: menorrhagia, dyspareunia, fe def.anemia, subserosal fibroids PLAN: The risks/benefits/alternatives and personal involved for the planned TLH, LSO, right salpingectomy were reviewed with the patient. Her questions were answered to her satisfaction and she desires to proceed. Consent was signed. I reviewed with her postop instructions and expectations. I have reviewed and updated past medical and surgical history, medications and allergies Tim Yip M.D. documented in this encounter [facility] 04-07-2025 Instructions Brooke Duncan MD - 04/07/2025 9:33 AM EDT We discussed your idiopathic intracranial hypertension (IIH) and associated symptoms: - We discussed the possibility of a stent placement to address venous narrowing seen on imaging, which may be contributing to your symptoms. This would involve a diagnostic procedure to confirm the narrowing and assess pressure gradients, followed by stent placement if indicated. - The stent procedure would require pre-procedure blood thinners (Plavix and aspirin) and post-procedure management of post-procedure headaches. Recovery typically involves at least 2 weeks of reduced activity. - We also discussed the risks of the procedure, including bleeding, vein injury, and stroke, though these risks are low. We discussed your upcoming medical procedures and timeline: - Please schedule for a hip injection in April to manage pain from degenerative joint disease. - You are scheduled for a hysterectomy on May 12 due to fibroids and heavy bleeding. Blood thinners for the stent procedure will not be started until you are fully cleared by your medical billing coder. - A lumbar puncture will be scheduled at [facility] to provide temporary symptom relief ahead of your hysterectomy. We discussed additional considerations: - Please schedule for an eye exam fore your stenting procedure - We discussed reducing your caffeine intake (currently 8 cups daily) in the [place] [facility] to lower your risk of osteoporosis and improve overall health. Next steps: - Proceed with your scheduled hip injection and hysterectomy. Ensure you follow up with your medical billing coder for post-operative clearance. - My team will coordinate with [facility] to schedule your lumbar puncture after your hysterectomy recovery. - Once cleared, we will proceed with the stent evaluation and potential placement. My team will assist with scheduling and pre-procedure instructions. - Continue to monitor your symptoms and notify us of any significant changes. Please reach out with any questions or concerns as we move forward with your care plan. documented in this encounter [facility] 04-07-2025 History of Present illness Narrative Images from the original note were not included. [facility] Initial Visit Michael Castro CC#: [id number] Date of Service: 04/07/2025 Primary Care Provider: Sanket Cruz MD The patient was referred by Tanya Vernon AP* for opinion regarding IIH with venous stenosis. I will provide a written report of my findings to the referring through letter, e communication, or epic. OUTPATIENT CONSULTATION Reason for Visit: Maya is a 39-year-old female with a history of idiopathic intracranial hypertension (IIH), presenting for evaluation of chronic headaches, pulsatile tinnitus, and visual disturbances. Handedness: Right Hypertension N Coronary Artery Disease N Diabetes N Obesity NA Dyslipidemia NA Tobacco Use (Please Update Smoking History) NA Stroke NA Intracranial Aneurysm NA Onset of symptoms: - Date: May 2015 - The patient initially experienced right > left retro-orbital and bitemporal headaches, pulsatile tinnitus with straining and when supine, and episodic left facial spasms. Episodes of facial drooping and paralysis lasted 30 seconds to 1 minute, accompanied by blurry vision and vertigo. - Facial spasm resolved by early 2015. She had two episodes of disabling vertigo since 2014. Otherwise not an on-going symptom. - In late 2014, an MRI of the brain identified findings consistent with idiopathic intracranial hypertension. She was on Diamox at the time. Routinely followed up by ophthalmology for visual field assessments. She had difficulty tolerating Diamox due to numbness and tingling; discontinued by her PCP in 2014. - By early 2015, she had persistent pulsatile tinnitus with interval resolution of facial twitching and numbness. She was seen by ophthalmology in summer 2015 and did not have papilledema at that time. During her in 2016, her headaches largely resolved, and her symptoms improved. She had an epidural which was complicated by a spinal leak but an EBP was not offered due to concerns for increased ICP after patch. - Her headaches resumed and did not resolve since then. However she does experience relief in severe headaches for about 6 months after each LP. - In 2019, she had a COVID infection, after which her headaches worsened. She was placed on topiramate but discontinued it due to adverse effects. She was then started on zonisamide 50 mg daily, titrated up to 100 mg daily, which she could not tolerate, leading to a reduction back to 50 mg daily. - By January 2025, she experienced worsening headaches through 2023 to 2024. She continues to have daily headaches associated with photophobia, dizziness, and visual burring about twice weekly, and bright visual scotomata described as starbursts. - Pulsatile tinnitus is primarily on the left, worsening with supine posture, lifting or straining. - She has two daughters, aged 16 (Vidhya) and 7 years. Vidhya is disabled and weighs 90 lb, so Maya does have to lift her as part of her care. She and her work different shifts. When alone, her friend Fiorella comes by to help her. 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 Needs hip injections which provide relief for 6 weeks to 2 months. Takes Meloxicam. - Zonegran does not touch her headaches. Caffeine does. She takes up to 8 shots of espresso / day. Down to 1 after LP. Weight history: Current BMI: 42.07 kg/m2 Notable vascular risk factors: impaired glucose tolerance Lumbar puncture history: Date: 10/20/2015 Opening pressure: 24.5 cmH2O Closing pressure: 16 cmH2O CSF normal: Yes Complicated by CSF leak Date: 05/30/22 Opening pressure: 29 cmH2O Closing pressure: <15 cmH2O CSF normal: Yes Relief in symptoms post LP Another one requested by ELVIRA Vernon (Headache); pending Diagnosis of Idiopathic Intracranial Hypertension (IIH) - Modified Dandy criteria Symptoms/ signs of intracranial hypertension (headaches, nausea/ vomiting, transient visual obscuration, papilledema): Yes No localizing neurological signs except for abducens palsy, unilateral or bilateral: Yes Elevated ICP (CSF opening pressure >25 cmH2O) on lumbar puncture with a normal CSF composition: Yes Neuroimaging without alternate etiology for intracranial hypertension: Yes Patient awake and alert: Yes No other explanation for increased intracranial hypertension: Yes Current symptoms: Cerebral Venous Disorder Severity Scale Symptoms Scores Headache Head / eye pressure, base of head pain 3 - Severe or debilitating symptoms that interfere with ability to function / work most days Cognitive dysfunction Brain fog, poor memory, difficulty thinking, word-finding difficulty 3 - Severe or debilitating symptoms that interfere with ability to function / work most days Tinnitus Sound in ear, including whooshing or high-pitched ring 2 - Moderate symptoms that interfere with ability to work or ADLs, but still able to function most days Dizziness Balance difficulties, vertigo, disequilibrium 1 - Mild symptoms that interfere slightly with ADLs but still able to function 2 episodes in the last 2 years that were limiting Visual symptoms Blurry or cloudy vision, visual spotting, loss of vision 2 - Moderate symptoms that interfere with ability to work or ADLs, but still able to function most days Involuntary motor episodes Catatonia, seizures, locked-in, shaking spells 0 - Not present Disability due to symptoms Receiving disability benefits, inability to work or attend school full-time due to symptoms 4 - Yes Total score Mild (0-5); Moderate (6-12); Severe (>12) 15 Treatment history: Acetazolamide Current dose: NA Max Dose: unknown Adverse effects: Sensory symptoms Tolerated: No, discontinued in early 2015 Topiramate Current dose: 0 mg AM / 0 mg PM Max Dose: 50 mg BID Adverse effects: night terrors and nightmares Tolerated: No Zonisamide - for headache Current dose: 50 mg daily Max Dose: 100 mg daily Adverse effects: None at current dose Tolerated: Yes but not effective, even at high dose Has not tried diuretic Current treatment team: - Headache: Tanya Vernon [employer] - Neuro-ophthalmology / Ophthalmology: Patricia FUENTES, appointment in May - Neurosurgery: NA - Weight management (Endocrinology / Bariatric surgery): NA - Neuroendovascular: Brooke Duncan MD - 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: Dr Tim Yip MD Past Medical History: ACTIVE PROBLEM LIST Pain in Joint, Ankle and Foot Deep Dyspareunia Muscle Spasm Inflammatory Polyarthropathy (Hcc) Vitamin D Deficiency Mvp (Mitral Valve Prolapse) Valvular Heart Disease Well Adult Exam Nsaid Long-Term Use Morbid Obesity (Hcc) Pseudotumor Cerebri Encounter for Screening for Cardiovascular Disorders Family History of Genetic Disease History of Mitral Valve Disorder History of 2019 Novel Coronavirus Disease (Covid-19) Low Iron Right Hip Pain Anxiety With Depression Gerd Without Esophagitis Elevated Hemoglobin A1c Acute Pain of Both Hips Medication Management Iron Deficiency Anemia Due to Chronic Blood Loss Arthritis of Right Hip Chronic Pelvic Pain in Female Fibroids, Subserous PAST SURGICAL HISTORY Procedure Laterality Date 2D ECHO (EXEP) EF=60%, mild MVP, +1 MVI and TI DELIVERY ONLY , low cervical DELIVERY ONLY 07/07/2017 LIGATE FALLOPIAN TUBE 2017 at csection PAST SURGICAL HISTORY OF 08/2000 TENDON REPAIR RIGHT WRIST STRESS ECHO 02/13/2021 normal TONSILLECTOMY PRIMARY/SECONDARY <AGE 10 02/2014 Tonsillectomy Allergies: Diamox [Acetazolamide] Medications: Current Outpatient Medications Medication Sig norethindrone (AYGESTIN) 5 mg tablet TAKE 1 TABLET BY MOUTH EVERY DAY zonisamide (ZONEGRAN) 50 mg capsule Take 1 capsule by mouth once daily. acetaminophen (TYLENOL ARTHRITIS ORAL) Take 2 tablets by mouth two times a day as needed. meloxicam (MOBIC) 15 mg tablet Take 1 tablet by mouth once daily. No current facility-administered medications for this visit. Social History Tobacco Use Smoking status: Never Smokeless tobacco: Never Vaping Use Vaping status: Never Used Substance Use Topics Alcohol use: Yes Comment: Occasionally, not while Drug use: No Review of Systems Head: (+) daily headaches (temporal, retro-orbital) Eyes: (+) blurred vision, (+) photophobia, (+) starburst Ears/Nose/Mouth/Throat: (+) pulsatile tinnitus (left) Musculoskeletal: (+) right hip pain Neurological: (+) dizziness/vertigo, (+) memory difficulty, (+) cognitive difficulty Patient Entered Questionnaires 04/04/2025 Health Status Impact by Stroke or CVD Impact Somewhat PROMIS/NeuroQoL Score Percentiles 04/04/2025 Physical Health Physical Function Percentile 8 Sleep Percentile 24* Fatigue Percentile 14 Pain Interference Percentile 4 04/04/2025 PROMIS SOCIAL ROLE SCORE Social Role Satisfaction Percentile 31 04/04/2025 Mental Health General Self-Efficacy Percentile 38 02/24/2025 12/01/2024 10/22/2022 PROMIS Global Health Scale Physical Health Percentile 10 10 41 Mental Health Percentile 3 9 13 Patient-reported Percentiles provide an indication of how a patient's score ranks in relation to the [place] general population. > 31st percentile is within normal limits or better * < 31st percentile is at least SD worse than population, which may be clinically relevant < 16th percentile is at least 1 SD worse than population and warrants attention Descriptive Summary for PROMIS Physical Function T-score = 36 (Percentile 8) Much difficulty - Carry a laundry basket up a flight of stairs. Some difficulty - Walk at a normal speed. Unable - Walk more than a mile (1.6 km). Depression Screenin04/04/2025 12/01/2024 10/22/2022 PHQ-9 Score 5 6 6 Self-Harm Response Not at all Not at all Not at all PHQ-9 Scores: PHQ-9 Self-Harm (Item 9) Response: 0 - 9 No to Mild depression 0 - Not at all 10 - 14 Moderate depression 1 - Several Days > 15 Severe depression 2 - More than half the days 3 - Nearly every day 02/15/2025 Sleep Apnea Probability Score Probability (%) 20 (Sleep study not recommended) PHYSICAL EXAMINATION BP 131/82 (BP Site: Left Arm, BP Position: Sitting, BP Cuff Size: Extra Large Adult) Pulse 71 Ht 157.5 cm (5' 2) Wt 104.8 kg (231 lb 0.7 oz) LMP 01/18/2025 (Exact Date) SpO2 99% BMI 42.26 kg/m General: The patient was well-groomed, appeared to be of stated age, and was in no acute distress. Cardiovascular: Regular heart rate and rhythm. Radial pulses normal. Respiratory: Normal breaths and breathing effort. No apparent dyspnea on exam. Head and neck: Atraumatic and normocephalic. Normal and symmetric cervical range of motion. With left neck pressure, decreased/ resolved PT. With right jugular pressure, no change in left PT. Integuments: No hematoma or ecchymoses. Neurological exam: - Awake, alert, aware of events. Oriented to date/ month/ year; self; place. Provided own history. - Language normal in fluency, conversational comprehension and to 2-step crossed commands, word and sentence repetition, and naming. No paraphasias. - Normal visual gutierres OU to confrontation. DARIO. Extraocular movements full, conjugate, and with normal accomodation and no nystagmus or drift. - Facial movements normal. Normal speech; no dysarthria. Normal and symmetric palate rise. Normal head turn and sternocleidomastoid activation. Midline tongue protrusion. - Normal tone, bulk and power in bilateral upper and lower extremities. No pronator drift. No adventitious movements. - Normal primary sensory modalities (proprioception, touch). No spatial inattention or extinction. - Normal truncal and appendicular coordination. - Normal stance and gait RESULTS IMAGING I have independently reviewed and interpreted the following imaging studies and laboratory test results. MRI brain wo/w con MRA brain wo con MRV brain wo/w con (03/18/2025) Findings compatible with the clinical history of idiopathic intracranial hypertension without significant change since 2021. Otherwise normal study. Normal intracranial MRA. No evidence of intracranial aneurysm, vascular malformation or significant large vessel intracranial occlusive disease. MRI/V brain wo con (05/13/2025) 1. No acute intracranial findings. 2. Constellation of findings suggestive of intracranial hypertension, including flattening of the pituitary, dilation of the bilateral optic nerve sheaths, and narrowing of the dural venous sinuses. Labs Glucose (mg/dL) Date Value 01/31/2025 79 12/20/2020 76 Potassium (mmol/L) Date Value 01/31/2025 4.5 12/20/2020 3.9 Sodium (mmol/L) Date Value 01/31/2025 139 12/20/2020 139 Chloride (mmol/L) Date Value 01/31/2025 101 12/20/2020 100 CO2 (mmol/L) Date Value 01/31/2025 26 12/20/2020 27 Creatinine (mg/dL) Date Value 01/31/2025 0.78 12/20/2020 0.78 BUN (mg/dL) Date Value 01/31/2025 13 12/20/2020 14 Anion Gap (mmol/L) Date Value 01/31/2025 12 12/20/2020 12 Calcium (mg/dL) Date Value 12/20/2020 9.4 Calcium, Total (mg/dL) Date Value 01/31/2025 9.2 Protein, Total (g/dL) Date Value 01/31/2025 7.5 12/20/2020 7.7 Albumin (g/dL) Date Value 01/31/2025 4.5 12/20/2020 4.4 Bilirubin, Total (mg/dL) Date Value 01/31/2025 0.4 12/20/2020 0.3 Alkaline Phosphatase (U/L) Date Value 01/31/2025 80 12/20/2020 80 AST (U/L) Date Value 01/31/2025 15 12/20/2020 24 ALT (U/L) Date Value 01/31/2025 14 12/20/2020 18 Hemoglobin (g/dL) Date Value 04/22/2025 12.8 09/25/2021 12.6 Hematocrit (%) Date Value 04/22/2025 39.8 09/25/2021 41.9 WBC (k/uL) Date Value 04/22/2025 9.69 09/25/2021 8.19 Stroke Mechanism and Scales IMPRESSION # IIH (idiopathic intracranial hypertension) (G93.2) Chronic condition with persistent symptoms including daily headaches, photophobia, dizziness, and visual disturbances. Previous treatments with acetazolamide, topiramate, and zonisamide were poorly tolerated or ineffective. Lumbar punctures provided temporary relief. Recent MRI shows venous sinus stenosis. - Discussed potential for venous sinus stenting to alleviate symptoms. We would wait until after her neuro-ophthalmology consultation with Dr Gomez to confirm this. - Will coordinate with patient's medical billing coder Dr. Yip to schedule the procedure after recovery from upcoming hysterectomy. Per Dr. Yip, she may initiate dual antiplatelet therapy 1 week after the hysterectomy. (High risk patient would be eligible for anticoagulation as early as 2 days after the procedure.) - Ordered lumbar puncture to be performed at [facility] prior to stenting procedure. - May consider Lasix as interim management, though less effective than the carbonic anhydrase inhibitors. - Advised patient to reduce caffeine intake to prevent potential osteoporosis. # Abnormal MRI (R93.89) MRI reveals venous sinus stenosis contributing to increased intracranial pressure. - Confirmed findings with diagnostic venography and pressure measurements during stenting procedure. # Pulsatile tinnitus, left ear (H93.A2) Chronic symptom exacerbated by changes in head position and physical exertion, likely related to increased intracranial pressure. - Anticipate improvement post-venous sinus stenting. # 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 (M16.31) Degenerative condition requiring periodic corticosteroid injections for pain management. - Scheduled for next corticosteroid injection on April 29 at [facility]. - Will coordinate timing of stenting procedure to minimize interruption of pain management. # Class 3 severe obesity with serious comorbidity and body mass index (BMI) of 40.0 to 44.9 in adult, unspecified obesity type (E66.813) Current weight 231 lbs, BMI 40.0-44.9. Previous weight loss of 70 lbs over the last 3 years did not significantly impact IIH symptoms. - Continue weight management efforts. - Discussed potential benefits of further weight loss on intracranial pressure. Recording using [employer] software for draft documentation of the visit was discussed with the patient/authorized accounts payable representative; all questions welcomed and answered. Patient/authorized accounts payable representative agreed to proceed SIGNATURE Brooke Duncan MD Staff, Neuroendovascular Intervention documented in this encounter [facility] 04-07-2025 Note HNO ID: [id number] Author: BROOKE DUNCAN MD Service: ? Author Type: Physician Type: Progress Notes Filed: 04/24/2025 11:21 Note Text: [facility] Initial Visit Michael S Gloria [facility]#: [id number] Date of Service: 04/07/2025 Primary Care Provider: Sanket Cruz MD The patient was referred by Tanya Vernon AP* for opinion regarding IIH with venous stenosis. I will provide a written report of my findings to the referring through letter, e communication, or epic. OUTPATIENT CONSULTATION Reason for Visit: Maya is a 39-year-old female with a history of idiopathic intracranial hypertension (IIH), presenting for evaluation of chronic headaches, pulsatile tinnitus, and visual disturbances. Handedness: Right Hypertension N Coronary Artery Disease N Diabetes N Obesity NA Dyslipidemia NA Tobacco Use (Please Update Smoking History) NA Stroke NA Intracranial Aneurysm NA Onset of symptoms: - Date: May 2015 - The patient initially experienced right > left retro-orbital and bitemporal headaches, pulsatile tinnitus with straining and when supine, and episodic left facial spasms. Episodes of facial drooping and paralysis lasted 30 seconds to 1 minute, accompanied by blurry vision and vertigo. - Facial spasm resolved by early 2015. She had two episodes of disabling vertigo since 2014. Otherwise not an on-going symptom. - In late 2014, an MRI of the brain identified findings consistent with idiopathic intracranial hypertension. She was on Diamox at the time. Routinely followed up by ophthalmology for visual field assessments. She had difficulty tolerating Diamox due to numbness and tingling; discontinued by her PCP in 2014. - By early 2015, she had persistent pulsatile tinnitus with interval resolution of facial twitching and numbness. She was seen by ophthalmology in summer 2015 and did not have papilledema at that time. During her in 2016, her headaches largely resolved, and her symptoms improved. She had an epidural which was complicated by a spinal leak but an EBP was not offered due to concerns for increased ICP after patch. - Her headaches resumed and did not resolve since then. However she does experience relief in severe headaches for about 6 months after each LP. - In 2019, she had a COVID infection, after which her headaches worsened. She was placed on topiramate but discontinued it due to adverse effects. She was then started on zonisamide 50 mg daily, titrated up to 100 mg daily, which she could not tolerate, leading to a reduction back to 50 mg daily. - By January 2025, she experienced worsening headaches through 2023 to 2024. She continues to have daily headaches associated with photophobia, dizziness, and visual burring about twice weekly, and bright visual scotomata described as starbursts. - Pulsatile tinnitus is primarily on the left, worsening with supine posture, lifting or straining. - She has two daughters, aged 16 (Vidhya) and 7 years. Vidhya is disabled and weighs 90 lb, so Maya does have to lift her as part of her care. She and her work different shifts. When alone, her friend Fiorella comes by to help her. 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 Needs hip injections which provide relief for 6 weeks to 2 months. Takes Meloxicam. - Zonegran does not touch her headaches. Caffeine does. She takes up to 8 shots of espresso / day. Down to 1 after LP. Weight history: Current BMI: 42.07 kg/m2 Notable vascular risk factors: impaired glucose tolerance Lumbar puncture history: Date: 10/20/2015 Opening pressure: 24.5 cmH2O Closing pressure: 16 cmH2O CSF normal: Yes Complicated by CSF leak Date: 05/30/22 Opening pressure: 29 cmH2O Closing pressure: <15 cmH2O CSF normal: Yes Relief in symptoms post LP Another one requested by ELVIRA Vernon (Headache); pending Diagnosis of Idiopathic Intracranial Hypertension (IIH) - Modified Dandy criteria Symptoms/ signs of intracranial hypertension (headaches, nausea/ vomiting, transient visual obscuration, papilledema): Yes No localizing neurological signs except for abducens palsy, unilateral or bilateral: Yes Elevated ICP (CSF opening pressure >25 cmH2O) on lumbar puncture with a normal CSF composition: Yes Neuroimaging without alternate etiology for intracranial hypertension: Yes Patient awake and alert: Yes No other explanation for increased intracranial hypertension: Yes Current symptoms: Cerebral Venous Disorder Severity Scale Symptoms Scores Headache Head / eye pressure, base of head pain 3 - Severe or debilitating symptoms that interfere with ability to function / work most days Cognitive dysfunction Brain fog, poor memory, difficulty thinking, word-finding difficulty 3 - Severe or debilitating symptoms that interfere with ability to function / work most days Tinnitus Sound in ear, i (more content not included)... [facility] 03-29-2025 Telephone encounter Note LP order placed. [facility] 03-29-2025 Miscellaneous Notes LP order placed. New LP order needed. documented in this encounter [facility] 03-28-2025 Telephone encounter Note OSH imaging/records received from [facility]: March 28, 2025 -Records & Imaging available in Chart [facility] 03-28-2025 Miscellaneous Notes OSH imaging/records received from [facility]: March 28, 2025 -Records & Imaging available in Chart ENDOVASCULAR INTAKE Patient name: Michael Castro When was triage completed? 03.28.25 What diagnosis are you looking to be seen for within our center? 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 (referring provider) Tanya Vernon APRN.ELVIRA Has your referring provider recommended a specific provider in our department? no Is this a second opinion? Have you been recommended for surgery or procedure for this condition? No + yes a LP If yes, have you scheduled this procedure at another facility? No as order hasn't been placed yet If yes, when is the procedure scheduled? no Where have you had any imaging for this diagnosis in the past year? These include images such as ultrasounds, MRIs, CTs, or angiograms of the head, brain, neck, carotids, or spine. [facility] Have you had any surgeries or procedures for this condition? yes If yes, where was it done and when? Who performed the surgery or procedure? 2021 possibly LP at [facility] Does any of the following pertain to you? Family history of brain aneurysm? no Polycystic kidney disease or other genetic kidney disease? Not applicable if chronic kidney disease. no Connective tissue disease such as fibromuscular dysplasia or Dylon-Danlos Syndrome? no Do you prefer in-person or virtual appointment? Out of state residents must be in [place] at the time of their virtual visit. In person Specific day of the week or time of day? Mondays preferred but will make anything work Do you prefer to be notified of your appointment by phone or Boxxethart message? Phone + ok to M Thank you for speaking with me today. Your information will now be forwarded to our endovascular advance practice provider team to review and provide scheduling recommendations. Please allow 3 business days to hear back from us. If you do not, feel free to call back [phone] for an update. documented in this encounter [facility] 03-28-2025 Telephone encounter Note ENDOVASCULAR INTAKE Patient name: Michael Castro When was triage completed? 5.5.25 What diagnosis are you looking to be seen for within our center? 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 (referring provider) Tanya Vernon APRN.TYPESETTERS PRINTER Has your referring provider recommended a specific provider in our department? no Is this a second opinion? Have you been recommended for surgery or procedure for this condition? No + yes a LP If yes, have you scheduled this procedure at another facility? No as order hasn't been placed yet If yes, when is the procedure scheduled? no Where have you had any imaging for this diagnosis in the past year? These include images such as ultrasounds, MRIs, CTs, or angiograms of the head, brain, neck, carotids, or spine. [facility] Have you had any surgeries or procedures for this condition? yes If yes, where was it done and when? Who performed the surgery or procedure? 2021 possibly LP at [facility] Does any of the following pertain to you? Family history of brain aneurysm? no Polycystic kidney disease or other genetic kidney disease? Not applicable if chronic kidney disease. no Connective tissue disease such as fibromuscular dysplasia or Dylon-Danlos Syndrome? no Do you prefer in-person or virtual appointment? Out of state residents must be in [place] at the time of their virtual visit. In person Specific day of the week or time of day? Mondays preferred but will make anything work Do you prefer to be notified of your appointment by phone or Boxxethart message? Phone + ok to [facility] Thank you for speaking with me today. Your information will now be forwarded to our endovascular advance practice provider team to review and provide scheduling recommendations. Please allow 3 business days to hear back from us. If you do not, feel free to call back [phone] for an update. T [facility] 03-28-2025 Telephone encounter Note New LP order needed. [facility] 03-28-2025 Telephone encounter Note Pharmacy requesting 90 days. Last annual 02/03/25 with JEREMY Requested Prescriptions Pending Prescriptions Disp Refills norethindrone (AYGESTIN) 5 mg tablet [Pharmacy Med Name: NORETHINDRONE 5 MG TABLET] 90 tablet 3 Sig: TAKE 1 TABLET BY MOUTH EVERY DAY Beena Marvin RN [facility] 03-28-2025 Miscellaneous Notes Pharmacy requesting 90 days. Last annual 02/03/25 with KJ Requested Prescriptions Pending Prescriptions Disp Refills norethindrone (AYGESTIN) 5 mg tablet [Pharmacy Med Name: NORETHINDRONE 5 MG TABLET] 90 tablet 3 Sig: TAKE 1 TABLET BY MOUTH EVERY DAY Beena Marvin RN documented in this encounter [facility] 03-24-2025 Telephone encounter Note Call to patient. Informed her of message from provider. She is OK with cerebrovascular consult. She states she has an appointment with her established entry level software developer at the end of April but that was the soonest she could get in with them. I provided her with the number to [facility] scheduling to see if any appointments were available sooner whether it is with ophthalmology or neuro-ophthalmology. She verbalized understanding. [facility] 03-24-2025 Miscellaneous Notes Call to patient. Informed her of message from provider. She is OK with cerebrovascular consult. She states she has an appointment with her established entry level software developer at the end of April but that was the soonest she could get in with them. I provided her with the number to [facility] scheduling to see if any appointments were available sooner whether it is with ophthalmology or neuro-ophthalmology. She verbalized understanding. documented in this encounter [facility] 03-18-2025 Note HNO ID: [id number] Author: CHAPO MINAYA RT(Dana) Service: ? Author Type: Technologist Type: Progress Notes Filed: 03/18/2025 14:07 Note Text: Radiology Service Progress Note DATE OF SERVICE: March 18, 2025 TIME: 2:05 PM PATIENT IDENTITY VERIFICATION COMPLETED USING TWO (2) STANDARD IDENTIFIERS: Name and Date of confirmed by patient verbally. FALL SCREENING: Has the patient had 2 falls in the last year or 1 fall with injury or currently using an Ambulatory Assistive Device (Walker, Cane, Wheelchair, Crutches, etc.)? No PATIENT GENDER DATA: Assigned female at . status: : No status: NO. PATIENT RELEVANT IMPLANT DATA REVIEWED: Not Applicable PATIENT PRESENTS WITH AN IMPLANTABLE OR ATTACHED HVAC MECHANIC: No ALLERGIES: Reviewed and unchanged CONTRAST ALLERGY: NO. EXAM: MRI - CONTRAST TYPE: GROUP II PERIPHERAL IV DATA: Ambulatory: A peripheral IV was started in the Right antecubital site with a Butterfly: 22 gauge. RADIOLOGY DEPARTMENT: MR; Exam(s) Completed: Head: Routine Brain IAC/CPA [place] MRA Sagittal Sinus MRV. Lavender Administered: No SIGNATURE: RT Alvaro(R) PATIENT NAME: Michael Castro DATE: March 18, 2025 TIME: 2:05 PM [facility] 03-11-2025 Telephone encounter Note Prescription Refill Information The patient has been identified by name and date of : Yes Caregiver verified no other encounters exist for this prescription request: Yes Caregiver confirmed with patient/requestor that no other refills are due, in the near future, with this provider at this time: Yes The last office visit in the department: 02/17/2025 w/Tanya Vernon CNP Does the patient have a future office visit with this provider/department: No Requested Prescriptions Pending Prescriptions Disp Refills zonisamide (ZONEGRAN) 50 mg capsule [Pharmacy Med Name: ZONISAMIDE 50 MG CAPSULE] 90 capsule 1 Sig: TAKE 1 CAPSULE BY MOUTH EVERY DAY Last ordered: 02/17/2025 Routing to provider. Evangelina Matos RN March 11, 2025 8:51 AM [facility] 03-11-2025 Miscellaneous Notes Prescription Refill Information The patient has been identified by name and date of : Yes Caregiver verified no other encounters exist for this prescription request: Yes Caregiver confirmed with patient/requestor that no other refills are due, in the near future, with this provider at this time: Yes The last office visit in the department: 02/17/2025 w/Tanya Vernon CNP Does the patient have a future office visit with this provider/department: No Requested Prescriptions Pending Prescriptions Disp Refills zonisamide (ZONEGRAN) 50 mg capsule [Pharmacy Med Name: ZONISAMIDE 50 MG CAPSULE] 90 capsule 1 Sig: TAKE 1 CAPSULE BY MOUTH EVERY DAY Last ordered: 02/17/2025 Routing to provider. Evangelina Matos RN March 11, 2025 8:51 AM documented in this encounter [facility] 03-03-2025 History of Present illness Narrative Chief Complaint Patient presents with: Follow Up HPI Michael Castro is a 39 year old female who presents here today for follow up. Patient with hx of Iron def anemia and has seen hematology and had iron infusions every other day for two weeks. Has not noted much improvement in her fatigue. However still bleeding heavily and has her Hyst set up for May 12 Has a MRI scheduled on 03/18/2025. Has been having increasing head pressure and pressure behind her eyes. Has been on antibiotics for a double ear infection and does not feel like the meds have helped the right at all. The left feels better. No drainage, chills. Last night felt hot in her face and ears. Office visit 01/31/2025 yearly Recently saw PCP and was referred to ortho. Injection was done last week. Has been dealing with chronic fatigue. Ready to come up with a definitive cause and plans to follow up on the testing. Recent labs +anemia. Recently told to start iron. However she has never been able to tolerate oral iron. Being worked up for frequent heavy menstrual bleeding. Recent US showed fibroids. 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 Has had significant weight loss over the years. . States she has not specifically been trying. Really struggling with her day to day tasks. Some days struggling to care for her child. She also has a follow up with neuro. Reports chronic daily Headaches. Suspects she will end up needed another spinal puncture to release excess fluid. Last one in 2021 Past medical history, appointments, medications, allergies reviewed. Previous Medical History PAST MEDICAL HISTORY Diagnosis Date Acute pain of both hips 03/01/2022 Cymbalta has helped. Anxiety with depression 06/25/2021 Arthritis of right hip 12/30/2024 X-ray 12/2024: mild Elevated hemoglobin A1c 07/26/2021 GERD without esophagitis 06/25/2021 Hip pain 07/11/2014 History of 2019 novel coronavirus disease (COVID-19) 11/01/2020 10/27/2020 Inflammatory polyarthropathy (HCC) 02/10/[address] Sandoval Iron deficiency anemia 10/24/2022 Low iron 01/23/2021 Muscle spasm 05/19/2013 MVP (mitral valve prolapse) 02/10/2014 On 2 D echo 01/2014 Pain in joint, ankle and foot 02/19/2012 Pseudotumor cerebri Right hip pain 06/25/2021 Saw Ortho (Dr. Brownlee) Told bone on bone. Routine gynecological examination Dr Doty Valvular heart disease 02/10/2014 2D echo 01/2014: 1+ MVI and TI Vitamin D deficiency 02/10/2014 Previous Surgical History PAST SURGICAL HISTORY Procedure Laterality Date 2D ECHO (EXEP) EF=60%, mild MVP, +1 MVI and TI DELIVERY ONLY , low cervical DELIVERY ONLY 07/07/2017 LIGATE FALLOPIAN TUBE 2017 at csection PAST SURGICAL HISTORY OF 08/2000 TENDON REPAIR RIGHT WRIST STRESS ECHO 02/13/2021 normal TONSILLECTOMY PRIMARY/SECONDARY <AGE 12 02/2014 Tonsillectomy Family History FAMILY HISTORY Problem Relation Age of Onset Seizures Mother tonic-clonic, quiescent off medication No Known Problems Father No Known Problems Sister No Known Problems Sister No Known Problems Sister No Known Problems Brother No Known Problems Brother No Known Problems Brother COPD Maternal Grandmother Diabetes Maternal Grandfather Hypertension Maternal Grandfather Heart Maternal Grandfather had a difibulator Hypertension Paternal Grandmother other (Other) Paternal Grandmother No breast/hand bobbin cleaner cancer Aneurysm Paternal Grandfather other (cask gene mutation) Daughter Coronary Artery Disease No Family History Patient Allergies ALLERGIES Allergen Reactions Diamox [Acetazolami* Other: See Comments Numbness in hands and feet Current Medications Current Outpatient Medications on File Prior to Visit Medication Sig amoxicillin-clavulanate potassium (AUGMENTIN) 875-125 mg per tablet Take 1 tablet by mouth two times a day for 7 days. zonisamide (ZONEGRAN) 50 mg capsule Take 1 capsule by mouth once daily. norethindrone (AYGESTIN) 5 mg tablet Take 1 tablet by mouth once daily. acetaminophen (TYLENOL ARTHRITIS ORAL) Take 2 tablets by mouth two times a day as needed. meloxicam (MOBIC) 15 mg tablet Take 1 tablet by mouth once daily. No current facility-administered medications on file prior to visit. Social History Social History Tobacco Use Smoking status: Never Smokeless tobacco: Never Vaping Use Vaping status: Never Used Substance Use Topics Alcohol use: Yes Comment: Occasionally, not while Drug use: No Review of Symptoms REVIEW OF SYSTEMS See HPI EXAM: BP 118/76 Pulse 82 Ht 156.3 cm (5' 1.52) Wt 103.3 kg (227 lb 12.8 oz) LMP 01/18/2025 (Exact Date) SpO2 98% BMI 42.32 kg/m Last 15 Encounter Wt Readings: Date: Wt: 03/03/2025 103.3 kg (227 lb 12.8 oz) 02/25/2025 104.8 kg (231 lb 0.7 oz) 02/24/2025 102.5 kg (226 lb) 02/10/2025 105.7 kg (233 lb) 02/03/2025 104.8 kg (231 lb) 01/31/2025 104.3 kg (230 lb) 01/20/2025 104.8 kg (231 lb) 12/02/2024 105.2 kg (232 lb) 10/20/2024 108.5 kg (239 lb 3.2 oz) 02/26/2023 119.4 kg (263 lb 3.2 oz) 10/24/2022 119.3 kg (263 lb) 09/23/2022 119.3 kg (263 lb) 04/29/2022 120.7 kg (266 lb) 03/01/2022 120.7 kg (266 lb) 02/14/2022 121.1 kg (267 lb) General Appearance: Well appearing, alert, in no acute distress, well-hydrated, well nourished.. Ears: External ears normal, canals clear, on the right there is a small area of irritation that is tender to touch on the inferior wall. Not infected and looks like either some dry wax or dry skin may have been pulled away. The TM's are normal except on the right slightly opaque but light reflex is normal and no erythema. . Neck: Supple, no adenopathy; thyroid symmetric, normal size, no bruits. Lungs: Lungs clear to auscultation. No wheezing, rhonchi, rales.. Heart: RRR without murmur, gallop, or rubs. No ectopy. Abdomen: Normal abdominal exam, Abdomen soft, non-tender. Bowel sounds normal. No masses, organomegaly. Extremities: No deformities, edema, skin discoloration,Good capillary refill. . Health Maintenance List Influenza Vaccine(1) due on 05/23/2025 Covid-19 Vaccine(3 - season) due on 01/31/2026 Mammogram Screening due on 11/03/2025 DTaP,Tdap,Td Vaccine(2 - Td or Tdap) due on 06/05/2027 Cervical Cancer Screening due on 02/03/2030 HIV Screening Completed Hepatitis B Vaccine Discontinued Hepatitis C Screening Discontinued Data reviewed Latest Ref Rng 01/20/2025 01/31/2025 Protein, Total 6.3 - 8.0 g/dL 7.5 Albumin 3.9 - 4.9 g/dL 4.5 Calcium 8.5 - 10.2 mg/dL 9.2 Bilirubin, Total 0.2 - 1.3 mg/dL 0.4 Alkaline Phosphatase 34 - 123 U/L 80 AST 13 - 35 U/L 15 ALT 7 - 38 U/L 14 Glucose 74 - 99 mg/dL 79 BUN 7 - 21 mg/dL 13 Creatinine 0.58 - 0.96 mg/dL 0.78 Sodium 136 - 144 mmol/L 139 Potassium 3.7 - 5.1 mmol/L 4.5 Chloride 98 - 107 mmol/L 101 CO2 22 - 30 mmol/L 26 Anion Gap 8 - 15 mmol/L 12 eGFR >=60 mL/min/1.73m 98 Total Cholesterol, Nonfasting <200 mg/dL 200 (H) Triglycerides, Nonfasting <150 mg/dL 86 HDL Cholesterol, Nonfasting >39 mg/dL 63 LDL Cholesterol, Nonfasting <100 mg/dL 120 (H) Non HDL Cholesterol, Nonfasting <130 mg/dL 137 (H) VLDL Cholesterol, Nonfasting <30 mg/dL 17 Total Chol/HDL Ratio, Nonfasting <5.10 mg/dL 3.17 LDL/HDL Ratio, Nonfasting <2.54 mg/dL 1.90 Iron 41 - 186 ug/dL 24 (L) TIBC 232 - 386 ug/dL 439 (H) Transferrin Saturation 15.0 - 57.0 % 5.5 (L) Hemoglobin A1C 4.3 - 5.6 % 5.6 Estimated Average Glucose mg/dL 114 Vitamin B12 232 - 1,245 pg/mL 984 BREANN Negative Negative Folate >4.7 ng/mL 8.7 Vitamin D 25 Hydroxy 31.0 - 80.0 ng/mL 38.1 A/P ASSESSMENT/PLAN: 1. Acute otitis media, bilateral - ICD9: 382.9, ICD10: H66.93 (primary diagnosis) Resolving. Patient to complete Augmentin 2. Right ear pain - ICD9: 388.70, ICD10: H92.01 - new issue, advised her it does not look infected but just irritated and should resolve. 3. Iron deficiency anemia due to chronic blood loss - ICD9: 280.0, ICD10: D50.0 - seeing hematology, S/P iron infusions. - as per #7 4. Pseudotumor cerebri - ICD9: 348.2, ICD10: G93.2 - following with Neuro and has MRI in the near future. 5. Vitamin D deficiency - ICD9: 268.9, ICD10: E55.9 - level is good. Not needing replacement 6. Inflammatory polyarthropathy (HCC) - ICD9: 714.9, ICD10: M06.4 - BREANN ok will monitor 7. Fibroids, subserous - ICD9: 218.2, ICD10: D25.2 - most like source of Iron def anemia. Gen surg eval being held off on until hyst completed on 05/12/2025 to see if this correct the iron def anemia. F/u 6 months routine. Sooner if issues. Sanket Cruz MD documented in this encounter [facility] 03-03-2025 Note HNO ID: [id number] Author: SANKET CRUZ MD Service: ? Author Type: Physician Type: Progress Notes Filed: 03/03/2025 20:52 Note Text: Chief Complaint Patient presents with: Follow Up HPI Michael Castro is a 39 year old female who presents here today for follow up. Patient with hx of Iron def anemia and has seen hematology and had iron infusions every other day for two weeks. Has not noted much improvement in her fatigue. However still bleeding heavily and has her Hyst set up for May 12 Has a MRI scheduled on 03/18/2025. Has been having increasing head pressure and pressure behind her eyes. Has been on antibiotics for a double ear infection and does not feel like the meds have helped the right at all. The left feels better. No drainage, chills. Last night felt hot in her face and ears. Office visit 01/31/2025 yearly Recently saw PCP and was referred to ortho. Injection was done last week. Has been dealing with chronic fatigue. Ready to come up with a definitive cause and plans to follow up on the testing. Recent labs +anemia. Recently told to start iron. However she has never been able to tolerate oral iron. Being worked up for frequent heavy menstrual bleeding. Recent US showed fibroids. 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 Has had significant weight loss over the years. . States she has not specifically been trying. Really struggling with her day to day tasks. Some days struggling to care for her child. She also has a follow up with neuro. Reports chronic daily Headaches. Suspects she will end up needed another spinal puncture to release excess fluid. Last one in 2021 Past medical history, appointments, medications, allergies reviewed. Previous Medical History PAST MEDICAL HISTORY Diagnosis Date Acute pain of both hips 03/01/2022 Cymbalta has helped. Anxiety with depression 06/25/2021 Arthritis of right hip 12/30/2024 X-ray 12/2024: mild Elevated hemoglobin A1c 07/26/2021 GERD without esophagitis 06/25/2021 Hip pain 07/11/2014 History of 2019 novel coronavirus disease (COVID-19) 11/01/2020 10/27/2020 Inflammatory polyarthropathy (HCC) 02/10/[address] Sandoval Iron deficiency anemia 10/24/2022 Low iron 01/23/2021 Muscle spasm 05/19/2013 MVP (mitral valve prolapse) 02/10/2014 On 2 D echo 01/2014 Pain in joint, ankle and foot 02/19/2012 Pseudotumor cerebri Right hip pain 06/25/2021 Saw Ortho (Dr. Brownlee) Told bone on bone. Routine gynecological examination Dr Doty Valvular heart disease 02/10/2014 2D echo 01/2014: 1+ MVI and TI Vitamin D deficiency 02/10/2014 Previous Surgical History PAST SURGICAL HISTORY Procedure Laterality Date 2D ECHO (EXEP) EF=60%, mild MVP, +1 MVI and TI DELIVERY ONLY , low cervical DELIVERY ONLY 07/07/2017 LIGATE FALLOPIAN TUBE 2017 at csection PAST SURGICAL HISTORY OF 08/2000 TENDON REPAIR RIGHT WRIST STRESS ECHO 02/13/2021 normal TONSILLECTOMY PRIMARY/SECONDARY Tonsillectomy Family History FAMILY HISTORY Problem Relation Age of Onset Seizures Mother tonic-clonic, quiescent off medication No Known Problems Father No Known Problems Sister No Known Problems Sister No Known Problems Sister No Known Problems Brother No Known Problems Brother No Known Problems Brother COPD Maternal Grandmother Diabetes Maternal Grandfather Hypertension Maternal Grandfather Heart Maternal Grandfather had a difibulator Hypertension Paternal Grandmother other (Other) Paternal Grandmother No breast/hand bobbin cleaner cancer Aneurysm Paternal Grandfather other (cask gene mutation) Daughter Coronary Artery Disease No Family History Patient Allergies ALLERGIES Allergen Reactions Diamox [Acetazolami* Other: See Comments Numbness in hands and feet Current Medications Current Outpatient Medications on File Prior to Visit Medication Sig amoxicillin-clavulanate potassium (AUGMENTIN) 875-125 mg per tablet Take 1 tablet by mouth two times a day for 7 days. zonisamide (ZONEGRAN) 50 mg capsule Take 1 capsule by mouth once daily. norethindrone (AYGESTIN) 5 mg tablet Take 1 tablet by mouth once daily. acetaminophen (TYLENOL ARTHRITIS ORAL) Take 2 tablets by mouth two times a day as needed. meloxicam (MOBIC) 15 mg tablet Take 1 tablet by mouth once daily. No current facility-administered medications on file prior to visit. Social History Social History Tobacco Use Smoking status: Never Smokeless tobacco: Never Vaping Use Vaping status: Never Used Substance Use Topics Alcohol use: Yes Comment: Occasionally, not while Drug use: No Review of Symptoms REVIEW OF SYSTEMS See HPI EXAM: BP 118/76 Pulse 82 Ht 156.3 cm (5' 1.52) Wt 103.3 kg (227 lb 12.8 oz) LMP 01/18/2025 (Exact Date) SpO2 98% BMI 42.32 kg/m? Last 15 Encounter Wt Readings: Date: Wt: 03/03/2025 (more content not included)... [facility] 02-25-2025 Note HNO ID: [id number] Author: SIDRA DOTY APRN.TYPESETTERS PRINTER Service: ? Author Type: Nurse Practitioner Type: Progress Notes Filed: 02/25/2025 14:36 Note Text: [facility] Subjective Michael Castro is a 39 year old female. Patient presents with: Ear Problem: Bilateral pain, L feels full of water x6 days Patient came in with complaints of bilateral ear pain. Patient says the left hurts worse than the right. Patient says they feel full. Patient denies any other symptoms. The history is provided by the patient. No service loss control consultant was used. Ear Problem Review of Systems Constitutional: Negative. HENT: Positive for ear pain. Objective BP 154/89 Pulse 79 Temp 36.5 ?C (97.7 ?F) Resp 18 Wt 104.8 kg (231 lb 0.7 oz) LMP 01/18/2025 (Exact Date) SpO2 100% BMI 42.93 kg/m? Physical Exam Constitutional: Appearance: Normal appearance. HENT: Right Ear: External ear normal. Tympanic membrane is erythematous. Left Ear: External ear normal. Tympanic membrane is erythematous and bulging. Mouth/Throat: Mouth: Mucous membranes are moist. Eyes: Pupils: Pupils are equal, round, and reactive to light. Cardiovascular: Rate and Rhythm: Normal rate and regular rhythm. Heart sounds: Normal heart sounds. Pulmonary: Effort: Pulmonary effort is normal. Breath sounds: Normal breath sounds. Neurological: Mental Status: She is alert. PAST MEDICAL HISTORY Diagnosis Date Acute pain of both hips 03/01/2022 Cymbalta has helped. Anxiety with depression 06/25/2021 Arthritis of right hip 12/30/2024 X-ray 12/2024: mild Elevated hemoglobin A1c 07/26/2021 GERD without esophagitis 06/25/2021 Hip pain 07/11/2014 History of 2019 novel coronavirus disease (COVID-19) 11/01/2020 10/27/2020 Inflammatory polyarthropathy (HCC) 02/10/[address] Sandoval Iron deficiency anemia 10/24/2022 Low iron 01/23/2021 Muscle spasm 05/19/2013 MVP (mitral valve prolapse) 02/10/2014 On 2 D echo 01/2014 Pain in joint, ankle and foot 02/19/2012 Pseudotumor cerebri Right hip pain 06/25/2021 Saw Ortho (Dr. Brownlee) Told bone on bone. Routine gynecological examination Dr Doty Valvular heart disease 02/10/2014 2D echo 01/2014: 1+ MVI and TI Vitamin D deficiency 02/10/2014 PAST SURGICAL HISTORY Procedure Laterality Date 2D ECHO (EXEP) EF=60%, mild MVP, +1 MVI and TI DELIVERY ONLY , low cervical DELIVERY ONLY 07/07/2017 LIGATE FALLOPIAN TUBE 2017 at csection PAST SURGICAL HISTORY OF 08/2000 TENDON REPAIR RIGHT WRIST STRESS ECHO 02/13/2021 normal TONSILLECTOMY PRIMARY/SECONDARY Tonsillectomy ALLERGIES Diamox [Acetazolamide] MEDICATIONS zonisamide (ZONEGRAN) 50 mg capsule Take 1 capsule by mouth once daily. norethindrone (AYGESTIN) 5 mg tablet Take 1 tablet by mouth once daily. acetaminophen (TYLENOL ARTHRITIS ORAL) Take 2 tablets by mouth two times a day as needed. meloxicam (MOBIC) 15 mg tablet Take 1 tablet by mouth once daily. amoxicillin-clavulanate potassium (AUGMENTIN) 875-125 mg per tablet Take 1 tablet by mouth two times a day for 7 days. FAMILY HISTORY Problem Relation Age of Onset Seizures Mother tonic-clonic, quiescent off medication No Known Problems Father No Known Problems Sister No Known Problems Sister No Known Problems Sister No Known Problems Brother No Known Problems Brother No Known Problems Brother COPD Maternal Grandmother Diabetes Maternal Grandfather Hypertension Maternal Grandfather Heart Maternal Grandfather had a difibulator Hypertension Paternal Grandmother other (Other) Paternal Grandmother No breast/hand bobbin cleaner cancer Aneurysm Paternal Grandfather other (cask gene mutation) Daughter Coronary Artery Disease No Family History Social History Tobacco Use Smoking status: Never Smokeless tobacco: Never Vaping Use Vaping status: Never Used Substance Use Topics Alcohol use: Yes Comment: Occasionally, not while Drug use: No {ASSESSMENT/PLAN: 1. Acute otitis media, left - ICD9: 382.9, ICD10: H66.92 - Will begin treatment with as per antibiotic as written, see orders - Supportive care with plenty of fluids, rest, and analgesia prn. - AMOXICILLIN 875 MG-POTASSIUM CLAVULANATE 125 MG TABLET Sidra Doty APRN.TYPESETTERS PRINTER History and Record Review External record(s) reviewed: no prior records. Disposition The patient was discharged. Procedures [facility] 02-25-2025 History of Present illness Narrative [facility] Subjective Michael Castro is a 39 year old female. Patient presents with: Ear Problem: Bilateral pain, L feels full of water x6 days Patient came in with complaints of bilateral ear pain. Patient says the left hurts worse than the right. Patient says they feel full. Patient denies any other symptoms. The history is provided by the patient. No service loss control consultant was used. Ear Problem Review of Systems Constitutional: Negative. HENT: Positive for ear pain. Objective BP 154/89 Pulse 79 Temp 36.5 C (97.7 F) Resp 18 Wt 104.8 kg (231 lb 0.7 oz) LMP 01/18/2025 (Exact Date) SpO2 100% BMI 42.93 kg/m Physical Exam Constitutional: Appearance: Normal appearance. HENT: Right Ear: External ear normal. Tympanic membrane is erythematous. Left Ear: External ear normal. Tympanic membrane is erythematous and bulging. Mouth/Throat: Mouth: Mucous membranes are moist. Eyes: Pupils: Pupils are equal, round, and reactive to light. Cardiovascular: Rate and Rhythm: Normal rate and regular rhythm. Heart sounds: Normal heart sounds. Pulmonary: Effort: Pulmonary effort is normal. Breath sounds: Normal breath sounds. Neurological: Mental Status: She is alert. PAST MEDICAL HISTORY Diagnosis Date Acute pain of both hips 03/01/2022 Cymbalta has helped. Anxiety with depression 06/25/2021 Arthritis of right hip 12/30/2024 X-ray 12/2024: mild Elevated hemoglobin A1c 07/26/2021 GERD without esophagitis 06/25/2021 Hip pain 07/11/2014 History of 2019 novel coronavirus disease (COVID-19) 11/01/2020 10/27/2020 Inflammatory polyarthropathy (HCC) 02/10/[address] Sandoval Iron deficiency anemia 10/24/2022 Low iron 01/23/2021 Muscle spasm 05/19/2013 MVP (mitral valve prolapse) 02/10/2014 On 2 D echo 01/2014 Pain in joint, ankle and foot 02/19/2012 Pseudotumor cerebri Right hip pain 06/25/2021 Saw Ortho (Dr. Brownlee) Told bone on bone. Routine gynecological examination Dr Doty Valvular heart disease 02/10/2014 2D echo 01/2014: 1+ MVI and TI Vitamin D deficiency 02/10/2014 PAST SURGICAL HISTORY Procedure Laterality Date 2D ECHO (EXEP) EF=60%, mild MVP, +1 MVI and TI DELIVERY ONLY , low cervical DELIVERY ONLY 07/07/2017 LIGATE FALLOPIAN TUBE 2017 at csection PAST SURGICAL HISTORY OF 08/2000 TENDON REPAIR RIGHT WRIST STRESS ECHO 02/13/2021 normal TONSILLECTOMY PRIMARY/SECONDARY <AGE 10 02/2014 Tonsillectomy ALLERGIES Diamox [Acetazolamide] MEDICATIONS zonisamide (ZONEGRAN) 50 mg capsule Take 1 capsule by mouth once daily. norethindrone (AYGESTIN) 5 mg tablet Take 1 tablet by mouth once daily. acetaminophen (TYLENOL ARTHRITIS ORAL) Take 2 tablets by mouth two times a day as needed. meloxicam (MOBIC) 15 mg tablet Take 1 tablet by mouth once daily. amoxicillin-clavulanate potassium (AUGMENTIN) 875-125 mg per tablet Take 1 tablet by mouth two times a day for 7 days. FAMILY HISTORY Problem Relation Age of Onset Seizures Mother tonic-clonic, quiescent off medication No Known Problems Father No Known Problems Sister No Known Problems Sister No Known Problems Sister No Known Problems Brother No Known Problems Brother No Known Problems Brother COPD Maternal Grandmother Diabetes Maternal Grandfather Hypertension Maternal Grandfather Heart Maternal Grandfather had a difibulator Hypertension Paternal Grandmother other (Other) Paternal Grandmother No breast/hand bobbin cleaner cancer Aneurysm Paternal Grandfather other (cask gene mutation) Daughter Coronary Artery Disease No Family History Social History Tobacco Use Smoking status: Never Smokeless tobacco: Never Vaping Use Vaping status: Never Used Substance Use Topics Alcohol use: Yes Comment: Occasionally, not while Drug use: No {ASSESSMENT/PLAN: 1. Acute otitis media, left - ICD9: 382.9, ICD10: H66.92 - Will begin treatment with as per antibiotic as written, see orders - Supportive care with plenty of fluids, rest, and analgesia prn. - AMOXICILLIN 875 MG-POTASSIUM CLAVULANATE 125 MG TABLET Sidra Doty APRN.TYPESETTERS PRINTER History and Record Review External record(s) reviewed: no prior records. Disposition The patient was discharged. Procedures documented in this encounter [facility] 02-24-2025 Note HNO ID: [id number] Author: TIM YIP MD Service: ? Author Type: Physician Type: Progress Notes Filed: 02/24/2025 13:56 Note Text: Michael Castro is a 39 year old female who presents for problem visit for f/u heavy menses. . HPI: Menses have always been heavy but worse since AUG. and having anemia, low fe and fatigue. Had iron transfusions. Has some edema around menses, cramping and breast tenderness. Cramping limits activity. Meloxicam. USes tylenol as well but doesn't help as much. Some pain w/ intercourse on left side, crampign worse on left as well. Pain w/ orgasm. No bleeding after intercourse. Menses last 7-8 days and change protection q 2 hrs at heaviest. Taking aygestin and helped this cycle (still taking it and on menses now) No pain w/ urination or BM. WHen on period constipation. Has tried IUD and couldn't get it in, tried preprocedure meds and still couldn't get it in. Not a good combined hormonal contraceptive candate w/ her medical comorbidities and she declines. OB History Gravida4 Para2 Term1 Preterm1 AB2 Living2 SAB1 IAB0 Ectopic0 Multiple0 Live Births2 Convex Grinder History LMP: 01/18/2025 (Exact Date), Having periods Age at Menarche: 8 Age at First : Age at Menopause: Convex Grinder History Comments: Sexual Activity: Yes; Male; one clean tatoo, no transfusions Contraception: Tubal Ligation Menstrual Tracking History Flowsheet Row Office Visit from 01/20/2025 in OB/Gynecology Period Cycle (Days) 6 Period Duration (Days) 6 Menstrual Flow Heavy PAST MEDICAL HISTORY Diagnosis Date Acute pain of both hips 03/01/2022 Cymbalta has helped. Anxiety with depression 06/25/2021 Arthritis of right hip 12/30/2024 X-ray 12/2024: mild Elevated hemoglobin A1c 07/26/2021 GERD without esophagitis 06/25/2021 Hip pain 07/11/2014 History of 2019 novel coronavirus disease (COVID-19) 11/01/2020 10/27/2020 Inflammatory polyarthropathy (HCC) 02/10/[address] Sandoval Iron deficiency anemia 10/24/2022 Low iron 01/23/2021 Muscle spasm 05/19/2013 MVP (mitral valve prolapse) 02/10/2014 On 2 D echo 01/2014 Pain in joint, ankle and foot 02/19/2012 Pseudotumor cerebri Right hip pain 06/25/2021 Saw Ortho (Dr. Brownlee) Told bone on bone. Routine gynecological examination Dr Doty Valvular heart disease 02/10/2014 2D echo 01/2014: 1+ MVI and TI Vitamin D deficiency 02/10/2014 PAST SURGICAL HISTORY Procedure Laterality Date 2D ECHO (EXEP) EF=60%, mild MVP, +1 MVI and TI DELIVERY ONLY , low cervical DELIVERY ONLY 07/07/2017 LIGATE FALLOPIAN TUBE 2017 at csection PAST SURGICAL HISTORY OF 08/2000 TENDON REPAIR RIGHT WRIST STRESS ECHO 02/13/2021 normal TONSILLECTOMY PRIMARY/SECONDARY Tonsillectomy FAMILY HISTORY Problem Relation Age of Onset Seizures Mother tonic-clonic, quiescent off medication No Known Problems Father No Known Problems Sister No Known Problems Sister No Known Problems Sister No Known Problems Brother No Known Problems Brother No Known Problems Brother COPD Maternal Grandmother Diabetes Maternal Grandfather Hypertension Maternal Grandfather Heart Maternal Grandfather had a difibulator Hypertension Paternal Grandmother other (Other) Paternal Grandmother No breast/hand bobbin cleaner cancer Aneurysm Paternal Grandfather other (cask gene mutation) Daughter Coronary Artery Disease No Family History Social History Tobacco Use Smoking status: Never Smokeless tobacco: Never Vaping Use Vaping status: Never Used Substance Use Topics Alcohol use: Yes Comment: Occasionally, not while Drug use: No Current Outpatient Medications Medication Sig zonisamide (ZONEGRAN) 50 mg capsule Take 1 capsule by mouth once daily. norethindrone (AYGESTIN) 5 mg tablet Take 1 tablet by mouth once daily. acetaminophen (TYLENOL ARTHRITIS ORAL) Take 2 tablets by mouth two times a day as needed. meloxicam (MOBIC) 15 mg tablet Take 1 tablet by mouth once daily. No current facility-administered medications for this visit. Allergies As of Date: 02/24/2025 Allergen Noted Reaction DIAMOX [ACETAZOLAMIDE] 05/16/2016 Other: See Comments Fully Assessed 02/24/2025 REAllergies and current medication updated:Yes SENSITIVE EXAM: The sensitive examination was discussed with the Patient or Patient's Authorized Purchasing Internship. As applicable, any other physician, advance practice provider, medical student, or other health professional student that will be observing or involved in the sensitive examination for educational or training purposes was discussed with the Patient or Authorized Purchasing Internship. The Patient or Authorized Purchasing Internship has agreed to proceed with the sensitive examination. (Sensitive examination includes inspection and/or palpation of the breasts, pelvis, prostate and anorectal regions). EXAM: BP 132/86 Wt 226 lb (102.5kg) LMP 01/18/2025 GENERAL: pl (more content not included)... [facility] 02-24-2025 History of Present illness Narrative Michael Castro is a 39 year old female who presents for problem visit for f/u heavy menses. . HPI: Menses have always been heavy but worse since AUG. and having anemia, low fe and fatigue. Had iron transfusions. Has some edema around menses, cramping and breast tenderness. Cramping limits activity. Meloxicam. USes tylenol as well but doesn't help as much. Some pain w/ intercourse on left side, crampign worse on left as well. Pain w/ orgasm. No bleeding after intercourse. Menses last 7-8 days and change protection q 2 hrs at heaviest. Taking aygestin and helped this cycle (still taking it and on menses now) No pain w/ urination or BM. WHen on period constipation. Has tried IUD and couldn't get it in, tried preprocedure meds and still couldn't get it in. Not a good combined hormonal contraceptive candate w/ her medical comorbidities and she declines. OB History Gravida4 Para2 Term1 Preterm1 AB2 Living2 SAB1 IAB0 Ectopic0 Multiple0 Live Births2 Convex Grinder History LMP: 01/18/2025 (Exact Date), Having periods Age at Menarche: 8 Age at First : Age at Menopause: Convex Grinder History Comments: Sexual Activity: Yes; Male; one clean tatoo, no transfusions Contraception: Tubal Ligation Menstrual Tracking History Flowsheet Row Office Visit from 01/20/2025 in OB/Gynecology Period Cycle (Days) 6 Period Duration (Days) 6 Menstrual Flow Heavy PAST MEDICAL HISTORY Diagnosis Date Acute pain of both hips 03/01/2022 Cymbalta has helped. Anxiety with depression 06/25/2021 Arthritis of right hip 12/30/2024 X-ray 12/2024: mild Elevated hemoglobin A1c 07/26/2021 GERD without esophagitis 06/25/2021 Hip pain 07/11/2014 History of 2019 novel coronavirus disease (COVID-19) 11/01/2020 10/27/2020 Inflammatory polyarthropathy (HCC) 02/10/[address] Sandoval Iron deficiency anemia 10/24/2022 Low iron 01/23/2021 Muscle spasm 05/19/2013 MVP (mitral valve prolapse) 02/10/2014 On 2 D echo 01/2014 Pain in joint, ankle and foot 02/19/2012 Pseudotumor cerebri Right hip pain 06/25/2021 Saw Ortho (Dr. Brownlee) Told bone on bone. Routine gynecological examination Dr Doty Valvular heart disease 02/10/2014 2D echo 01/2014: 1+ MVI and TI Vitamin D deficiency 02/10/2014 PAST SURGICAL HISTORY Procedure Laterality Date 2D ECHO (EXEP) ' EF=60%, mild MVP, +1 MVI and TI DELIVERY ONLY , low cervical DELIVERY ONLY 07/07/2017 LIGATE FALLOPIAN TUBE 2017 at csection PAST SURGICAL HISTORY OF 08/2000 TENDON REPAIR RIGHT WRIST STRESS ECHO 02/13/2021 normal TONSILLECTOMY PRIMARY/SECONDARY <AGE 10 02/2014 Tonsillectomy FAMILY HISTORY Problem Relation Age of Onset Seizures Mother tonic-clonic, quiescent off medication No Known Problems Father No Known Problems Sister No Known Problems Sister No Known Problems Sister No Known Problems Brother No Known Problems Brother No Known Problems Brother COPD Maternal Grandmother Diabetes Maternal Grandfather Hypertension Maternal Grandfather Heart Maternal Grandfather had a difibulator Hypertension Paternal Grandmother other (Other) Paternal Grandmother No breast/hand bobbin cleaner cancer Aneurysm Paternal Grandfather other (cask gene mutation) Daughter Coronary Artery Disease No Family History Social History Tobacco Use Smoking status: Never Smokeless tobacco: Never Vaping Use Vaping status: Never Used Substance Use Topics Alcohol use: Yes Comment: Occasionally, not while Drug use: No Current Outpatient Medications Medication Sig zonisamide (ZONEGRAN) 50 mg capsule Take 1 capsule by mouth once daily. norethindrone (AYGESTIN) 5 mg tablet Take 1 tablet by mouth once daily. acetaminophen (TYLENOL ARTHRITIS ORAL) Take 2 tablets by mouth two times a day as needed. meloxicam (MOBIC) 15 mg tablet Take 1 tablet by mouth once daily. No current facility-administered medications for this visit. Allergies As of Date: 02/24/2025 Allergen Noted Reaction DIAMOX [ACETAZOLAMIDE] 05/16/2016 Other: See Comments Fully Assessed 02/24/2025 REAllergies and current medication updated:Yes SENSITIVE EXAM: The sensitive examination was discussed with the Patient or Patient's Authorized Purchasing Internship. As applicable, any other physician, advance practice provider, medical student, or other health professional student that will be observing or involved in the sensitive examination for educational or training purposes was discussed with the Patient or Authorized Purchasing Internship. The Patient or Authorized Purchasing Internship has agreed to proceed with the sensitive examination. (Sensitive examination includes inspection and/or palpation of the breasts, pelvis, prostate and anorectal regions). EXAM: BP 132/86 Wt 226 lb (102.5kg) LMP 01/18/2025 GENERAL: pleasant, female in no apparent distress ABDOMEN: soft, non-tender, no hernia, no masses, and c/s is low transverse on abd. wall PELVIC: external genitalia normal, normal Bartholin's glands, urethra, [place]'s glands, no vulvar lesions, no cervical lesions, good vaginal support, normal appearing perineal body and perianal region, moderate red blood BIMANUAL: uterus normal size, shape and consistency, no adnexal masses, uterus tender, mobile, anteflexed, left adenxa very tender, right nontender, no masses noted ASSESSMENT AND PLAN: Assessment & Plan Iron deficiency anemia due to chronic blood loss Menorrhagia with regular cycle Fibroids, subserous Deep dyspareunia Chronic pelvic pain in female Could not do IUD or EMB due to r/b/a of hysterectomy w/ or w/o LSO. Strongly desires LSO. D/w her there could be underlying endometrial ca that is undiagnosed, low likelihood but cannot biopsy in office and could do hysteroscopy D&C or know that if ca is found at time of surgery may need hand bobbin cleaner onc to do staging later. Elects for TLH, LSO, right salpingectomy and cyso locally. D/w her short and terminal superintendent risks. D/w her that this may not resolve pain/dysparuenia but seems clinically her uterus and ovary are most of her pain on exam. Cont. FE infusions and aygestin to control bleeding until surgery. reviewed CBC/TSH/US/PAP/HRHPV Tim Yip MD . documented in this encounter [facility] 02-22-2025 Telephone encounter Note Pt noted on [facility] 1st time treatment report. Pt has a non-oncology regimen. No social work follow up indicated. DASH Montes [facility] 02-22-2025 Miscellaneous Notes Pt noted on [facility] 1st time treatment report. Pt has a non-oncology regimen. No social work follow up indicated. DASH Montes documented in this encounter [facility] 02-17-2025 Instructions Tanya Vernon APRN.TYPESETTERS PRINTER - 02/17/2025 7:43 AM EDT Schedule MRI, MRA, and MRV brain. Consult placed to ophthalmology to evaluate for papilledema if you are unable to schedule alessandra with your current provider. Begin Zonegran 50mg once daily at bedtime. documented in this encounter [facility] 02-17-2025 History of Present illness Narrative Images from the original note were not included. [facility] [place] Follow-up Visit Follow-up note February 17, 2025 HPI: Ms. Castro presents today for a follow-up visit. Per her previous visit on 08/15/22: R51.9, G89.29 Chronic intractable headache, unspecified headache type (primary encounter diagnosis) G93.2 Pseudotumor cerebri G47.39 Sleep apnea-like behavior Comment: Patient previously seen for history of pseudotumor and headaches with resolution of symptoms in 2016 but recurrence after COVID infection in 2019. MRI/V of brain completed in interim to evaluate further for etiology of headaches (pseudotumor, intracranial lesion, sinus thrombosis). Results suggestive of intracranial hypertension. HSAT also ordered (as untreated SARAN may exacerbate migraines and ICP) and pt reports completion of testing, however, results not available in chart. Will determine why results not available. At time of last appointment she was started on Zonegran 50mg with titration up to 100mg. However, as symptoms persisted she ultimately underwent LP. Following LP she reports significant improvement of headaches and now only occurring two days per week to less severe degree. She does report that upon increasing Zonegran to 100mg she experienced worsening of SE and had to decrease back down to 50mg dose. Today she still notes SE even with 50mg dose and would prefer to trial alternative medication. On further discussion she reports that Topamax managed symptoms in the past upon initial diagnosis and she tolerated medication well without SE. Reports medication was discontinued due to and was not restarted after. After discussion she would like to transition from Zonegran to Topamax. On review of chart appears she was taking 50mg Topamax BID in past. Will transition and titrate up slowly to 50mg BID. If at any time headaches worsen she is aware she is to notify office. Had her last LP in 2021. Things were going well for a while after that. Over the last 6 mos to one year sx became worse. Increased head pressure and headaches behind her eyes. Headaches wake her at night. Does a lot of bending and lifting for work which makes sx worse. Feels fluid buildup is back. HAMMOND behind R eye; stabbing. Also in synagogue. + photophobia. Head feels heavy. Tinnitus in L ear; worse when supine but can happen when upright. Can be pulsatile when laying down nightly. No n/v. Occasional dizziness with headache. Sometimes sees star bursts in visions/dancing lights. No blurred or double vision. No HAMMOND with coughing, sneezing, BM. Sometimes worse with sneezing. Laying down helps her headaches. If a headache becomes severe states her face will freeze in places. L paralysis and will twitch. States this is the same as previous headaches; states last time was more facial drooping whereas now it is more frozen. Otherwise same location. She is not taking Topamax any longer d/t SE. Was drowsy and tired. Now having a headache daily. Last all day. Used to take Excedrin and caffeine which would help but now that she is taking meloxicam she cannot take Excedrin. Over the past two months has been unbearable. Was taking OTC medications daily every 6-8 hours. Relieves sharp stabbing. Was taking daily for about one year. Last eye appt was 03/2024. Cannot recall if she was told she had papilledema. Getting iron infusions which have made the headache worse. States all she does is sleep. Having hysterectomy d/t ongoing bleeding. Job is stressful. Can make headaches worse. No renal stone. No glaucoma hx. PAST MEDICAL HISTORY Diagnosis Date Acute pain of both hips 03/01/2022 Cymbalta has helped. Anxiety with depression 06/25/2021 Arthritis of right hip 12/30/2024 X-ray 12/2024: mild Elevated hemoglobin A1c 07/26/2021 GERD without esophagitis 06/25/2021 Hip pain 07/11/2014 History of 2019 novel coronavirus disease (COVID-19) 11/01/2020 10/27/2020 Inflammatory polyarthropathy (HCC) 02/10/[address] Sandoval Iron deficiency anemia 10/24/2022 Low iron 01/23/2021 Muscle spasm 05/19/2013 MVP (mitral valve prolapse) 02/10/2014 On 2 D echo 01/2014 Pain in joint, ankle and foot 02/19/2012 Pseudotumor cerebri Right hip pain 06/25/2021 Saw Ortho (Dr. Brownlee) Told bone on bone. Routine gynecological examination Dr Doty Valvular heart disease 02/10/2014 2D echo 01/2014: 1+ MVI and TI Vitamin D deficiency 02/10/2014 PAST SURGICAL HISTORY Procedure Laterality Date 2D ECHO (EXEP) EF=60%, mild MVP, +1 MVI and TI DELIVERY ONLY , low cervical DELIVERY ONLY 07/07/2017 LIGATE FALLOPIAN TUBE 2017 at [facility] PAST SURGICAL HISTORY OF 08/2000 TENDON REPAIR RIGHT WRIST STRESS ECHO 02/13/2021 normal TONSILLECTOMY PRIMARY/SECONDARY <AGE 10 02/2014 Tonsillectomy Current Outpatient Medications on File Prior to Visit Medication Sig norethindrone (AYGESTIN) 5 mg tablet Take 1 tablet by mouth once daily. acetaminophen (TYLENOL ARTHRITIS ORAL) Take 2 tablets by mouth two times a day as needed. meloxicam (MOBIC) 15 mg tablet Take 1 tablet by mouth once daily. Current Facility-Administered Medications on File Prior to Visit Medication NaCl 0.9% iv infusion diphenhydrAMINE 50 mg injection (BENADRYL) hydrocortisone sodium succinate (PF) 100 mg injection (Solu-CORTEF) EPINEPHrine HCl (PF) 1 mg/mL (1 mL) 0.3 mg injection Social History Tobacco Use Smoking status: Never Smokeless tobacco: Never Vaping Use Vaping status: Never Used Substance Use Topics Alcohol use: Yes Comment: Occasionally, not while Drug use: No ALLERGIES Allergen Reactions Diamox [Acetazolami* Other: See Comments Numbness in hands and feet Review of Systems: Cardiopulmonary: denies chest pain, palpitations Respiratory: denies shortness of breath GI/: denies recent nausea, vomiting, diarrhea, constipation, incontinence Musculoskeletal: denies weakness Back/spine: denies low back or cervical pains Neuro: denies tremors, loss of feeling, dizziness, seizure, blackout, paresthesia, facial paresthesia, facial weakness, difficulty in speech, slurring of words, dysarthria, dysphagia, memory loss, + headache, vision changes, loss of hearing Physical Exam: There were no vitals filed for this visit. Patient is alert and in no distress. Dress is appropriate. Mood is appropriate Breathing appears regular and unstressed Neurologic examination: Exam is observational at best. General Appearance: well appearing, in no acute distress Mental status evaluation during the interview and examination showed normal level of consciousness, orientation, language, memory, praxis, and higher intellectual function Affect: Normal Speech: normal Cranial Nerves: III, IV, -EOMI: full. VII-face is symmetric without evidence of weakness. VIII-hearing intact. XII-tongue protrudes midline with normal movements. Labs/studies: MRI Report MRI BRAIN WO IVCON Exam End: 05/13/2022 8:48 AM (Final result) Narrative: * * *Final Report* * * DATE OF EXAM: May 13 2022 8:20AM [id number] - MRI BRAIN WO IVCON / PROCEDURE REASON: multiple diagnoses * * * * Physician Interpretation * * * * EXAMINATION: MRI BRAIN WO IVCON, MRV BRAIN WO IVCON CLINICAL HISTORY: Chronic intractable headache. TECHNIQUE: Routine noncontrast MRI protocol including diffusion images. [id number] MRV without contrast was also obtained with 2-D multiplanar and 3-D maximum intensity projections calculated on the imaging workstation under physician supervision. MQ: [id number] COMPARISON: CT/CTA head 07/24/2015 RESULT: Acute Change: There is no evidence of restricted diffusion to suggest an acute infarct. Hemorrhage: No evidence of prior parenchymal hemorrhage on the gradient echo images. Mass Lesion/ Mass Effect: No evidence of an intracranial mass or extra-axial fluid collection. No significant mass effect. Chronic Change: The white matter is within normal limits of signal intensity for age. Parenchyma: No significant volume loss for age. The brain parenchyma is otherwise within normal limits of signal intensity and morphology. Ventricles: Normal caliber and morphology. Skull Base: There is flattening of the pituitary, greater than expected for age. Craniocervical junction is patent. No evidence of pathologic marrow infiltration. Vasculature: Major intracranial arterial structures, and dural venous sinuses show typical flow void, suggesting patency by spin echo criteria. Other: The paranasal sinuses are clear. The optic nerve sheaths are enlarged. The orbits and globes are otherwise unremarkable. Visualized extracranial soft tissues are unremarkable. Incidental hyperostosis frontalis interna. MRV: There is tapered narrowing of the anterior superior sagittal sinus, as well as the bilateral transverse and sigmoid sinuses, which can be seen in the setting of intracranial hypertension. No discrete dural venous sinus thrombosis is identified. Impression: IMPRESSION: 1. No acute intracranial findings. 2. Constellation of findings suggestive of intracranial hypertension, including flattening of the pituitary, dilation of the bilateral optic nerve sheaths, and narrowing of the dural venous sinuses. Director Of Partner Marketing: JACKIE Transcribe Date/Time: May 13 2022 10:36A Dictated by : ALYCIA JERONIMO MD This examination was interpreted and the report reviewed and electronically signed by: ALYCIA JERONIMO MD on May 13 2022 10:45AM EST Assessment/Plan: G93.2 IIH (idiopathic intracranial hypertension) (primary encounter diagnosis) R51.9, G89.29 Chronic intractable headache, unspecified headache type Comment: Patient last seen in 07/2022 for a history of IIH. Initial dx with resolution was in 2016 with recurrence in 2019 after COVID infxn. Last imaging including MRI/V of brain completed in 04/2022 demonstrating findings suggestive of IIH. She underwent LP with OP of 29. Following LP headaches improved. During follow up OV she was transitioned from Zonegran to Topamax 50mg BID. No further follow up at that time. At time of appointment today she reports worsening of headaches over the past 6-12 months (stopped TPX due to SE). Headaches are occurring daily and can last all day. Headaches are localized to R retro-orbital/temporal region. She reports associated photophobia, occasional dizziness, and occasional visual disturbance described as starbursts. She denies blurred vision, double vision, photophobia, N/V. She does endorse L pulsatile tinnitus worse when supine. She also reports paralysis of L face and L facial twitching. Notably, headaches improve when supine. Given history of IIH, concern at this time would be for increased ICP. However, she denies blurred vision, headaches improve when supine, tinnitus is unilateral, and L facial paralysis which would raise suspicion for other alternative process as well including migraine headache or vessel abnormality. It should also be noted that she has dx of KRISTINE (will be undergoing hysterectomy) and has increased stress at work which may contribute to worsening of headaches. After discussion, will proceed with plan below. -MRI/V brain WO/W to evaluate for findings suggestive of IIH. -MRA brain WO given report of unilateral pulsatile tinnitus. -Consult to ophthalmology to evaluate for papilledema. -Begin Zonegran 50mg daily at bedtime (SE with Topamax and Diamox) for management of headaches (consider both migraine and IIH). -Discussed HSAT, however, d/t upcoming surgical procedure and other dx defers until time of follow up. Should headache persist despite medication and imaging/ophthalmology exam suggest IIH, may proceed with LP. She will follow up after completion of imaging and updated eye exam. [facility] on 02/17/25 MRI BRAIN WO/W IVCON MRV BRAIN WO/W IVCON MRA BRAIN WO IVCON CONSULT TO OPHTHALMOLOGY Tanya Vernon APRN.TYPESETTERS PRINTER I spent a total of 40 minutes on the date of the service which included preparing to see the patient, [id number] patient care, completing clinical documentation, obtaining and/or reviewing separately obtained history, performing a medically appropriate examination, counseling and educating the patient/family/caregiver, and ordering medications, tests, or procedures. documented in this encounter [facility] 02-17-2025 Note HNO ID: [id number] Author: TANYA VERNON APRN.CNP Service: ? Author Type: Nurse Practitioner Type: Progress Notes Filed: 02/17/2025 07:43 Note Text: [facility] [place] Follow-up Visit Follow-up note February 17, 2025 HPI: Ms. Castro presents today for a follow-up visit. Per her previous visit on 08/15/22: R51.9, G89.29 Chronic intractable headache, unspecified headache type (primary encounter diagnosis) G93.2 Pseudotumor cerebri G47.39 Sleep apnea-like behavior Comment: Patient previously seen for history of pseudotumor and headaches with resolution of symptoms in 2016 but recurrence after COVID infection in 2019. MRI/V of brain completed in interim to evaluate further for etiology of headaches (pseudotumor, intracranial lesion, sinus thrombosis). Results suggestive of intracranial hypertension. HSAT also ordered (as untreated SARAN may exacerbate migraines and ICP) and pt reports completion of testing, however, results not available in chart. Will determine why results not available. At time of last appointment she was started on Zonegran 50mg with titration up to 100mg. However, as symptoms persisted she ultimately underwent LP. Following LP she reports significant improvement of headaches and now only occurring two days per week to less severe degree. She does report that upon increasing Zonegran to 100mg she experienced worsening of SE and had to decrease back down to 50mg dose. Today she still notes SE even with 50mg dose and would prefer to trial alternative medication. On further discussion she reports that Topamax managed symptoms in the past upon initial diagnosis and she tolerated medication well without SE. Reports medication was discontinued due to and was not restarted after. After discussion she would like to transition from Zonegran to Topamax. On review of chart appears she was taking 50mg Topamax BID in past. Will transition and titrate up slowly to 50mg BID. If at any time headaches worsen she is aware she is to notify office. Had her last LP in 2021. Things were going well for a while after that. Over the last 6 mos to one year sx became worse. Increased head pressure and headaches behind her eyes. Headaches wake her at night. Does a lot of bending and lifting for work which makes sx worse. Feels fluid buildup is back. HAMMOND behind R eye; stabbing. Also in synagogue. + photophobia. Head feels heavy. Tinnitus in L ear; worse when supine but can happen when upright. Can be pulsatile when laying down nightly. No n/v. Occasional dizziness with headache. Sometimes sees star bursts in visions/dancing lights. No blurred or double vision. No HAMMOND with coughing, sneezing, BM. Sometimes worse with sneezing. Laying down helps her headaches. If a headache becomes severe states her face will freeze in places. L paralysis and will twitch. States this is the same as previous headaches; states last time was more facial drooping whereas now it is more frozen. Otherwise same location. She is not taking Topamax any longer d/t SE. Was drowsy and tired. Now having a headache daily. Last all day. Used to take Excedrin and caffeine which would help but now that she is taking meloxicam she cannot take Excedrin. Over the past two months has been unbearable. Was taking OTC medications daily every 6-8 hours. Relieves sharp stabbing. Was taking daily for about one year. Last eye appt was 03/2024. Cannot recall if she was told she had papilledema. Getting iron infusions which have made the headache worse. States all she does is sleep. Having hysterectomy d/t ongoing bleeding. Job is stressful. Can make headaches worse. No renal stone. No glaucoma hx. PAST MEDICAL HISTORY Diagnosis Date Acute pain of both hips 03/01/2022 Cymbalta has helped. Anxiety with depression 06/25/2021 Arthritis of right hip 12/30/2024 X-ray 12/2024: mild Elevated hemoglobin A1c 07/26/2021 GERD without esophagitis 06/25/2021 Hip pain 07/11/2014 History of 2019 novel coronavirus disease (COVID-19) 11/01/2020 10/27/2020 Inflammatory polyarthropathy (HCC) 02/10/[address] Sandoval Iron deficiency anemia 10/24/2022 Low iron 01/23/2021 Muscle spasm 05/19/2013 MVP (mitral valve prolapse) 02/10/2014 On 2 D echo 01/2014 Pain in joint, ankle and foot 02/19/2012 Pseudotumor cerebri Right hip pain 06/25/2021 Saw Ortho (Dr. Brownlee) Told bone on bone. Routine gynecological examination Dr Doty Valvular heart disease 02/10/2014 2D echo 01/2014: 1+ MVI and TI Vitamin D deficiency 02/10/2014 PAST SURGICAL HISTORY Procedure Laterality Date 2D ECHO (EXEP) EF=60%, mild MVP, +1 MVI and TI DELIVERY ONLY , low cervical DELIVERY ONLY 07/07/2017 LIGATE FALLOPIAN TUBE 2017 at csection PAST SURGICAL HISTORY OF 08/2000 TENDON REPAIR RIGHT WRIST STRESS ECHO 02/13/2021 normal TONSILLECTOMY PRIMARY/SECONDARY To (more content not included)... [facility] 02-15-2025 Telephone encounter Note Scheduled patient with neurology PAUL at [facility] on 02/17/25. Please notify patient if scheduled incorrectly and needs to be seen elsewhere. [facility] 02-15-2025 Miscellaneous Notes Scheduled patient with neurology PAUL at [facility] on 02/17/25. Please notify patient if scheduled incorrectly and needs to be seen elsewhere. Patient calling to reschedule her appt with Neurology if possible to see someone on 02/18/2025. Assisted with transfer to home care scheduler to get appt set up. LVM for the patient about canceled appt. gave the patient ph# [phone] to call to reschedule appt Sent the patient a [employer] message. documented in this encounter [facility] 02-15-2025 Telephone encounter Note Patient calling to reschedule her appt with Neurology if possible to see someone on 02/18/2025. Assisted with transfer to home care scheduler to get appt set up. [facility] 02-15-2025 Telephone encounter Note LVM for the patient about canceled appt. gave the patient ph# [phone] to call to reschedule appt Sent the patient a [employer] message. [facility] Work Phone: 02-10-2025 Note HNO ID: [id number] Author: PETRA GRANT, ? Service: ? Author Type: Nurse Practitioner Type: Progress Notes Filed: 02/14/2025 09:59 Note Text: Progress Note Michael Castro 1985 Encounter date: 02/10/2025 HPI: Michael Castro is a 39 year old female presenting as a new referral for iron deficiency. She is fatigued. Feels that it is worse lately. She has tried PO iron in several formulations for several years. Unable to tolerate due to GI symptoms. Feels like lead sitting in stomach. Causes nausea and vomiting. Heavy menses. Periods are every 3 weeks last 7 days. Saturating 1 pad/hr. Passing large clots. 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 She is on norethindrone in efforts to slow bleeding. Planning for possible hysterectomy. She does have lower abd pains on a regular basis, generalized, stable. Constipation. Denies hematuria or hematochezia. Denies hx of abd surgeries, no GERD. No prior colonoscopy. Ice cravings all day long for as long as I can remember. Does not follow any particular dietary restrictions. Tried to eat primarily iron rich foods. No RLS. No hx of iron infusions or blood transfusions. No known personal or family hx of blood disorders or cancers. No PAST MEDICAL HISTORY Diagnosis Date Acute pain of both hips 03/01/2022 Cymbalta has helped. Anxiety with depression 06/25/2021 Arthritis of right hip 12/30/2024 X-ray 12/2024: mild Elevated hemoglobin A1c 07/26/2021 GERD without esophagitis 06/25/2021 Hip pain 07/11/2014 History of 2019 novel coronavirus disease (COVID-19) 11/01/2020 10/27/2020 Inflammatory polyarthropathy (HCC) 02/10/[address] Sandoval Iron deficiency anemia 10/24/2022 Low iron 01/23/2021 Muscle spasm 05/19/2013 MVP (mitral valve prolapse) 02/10/2014 On 2 D echo 01/2014 Pain in joint, ankle and foot 02/19/2012 Pseudotumor cerebri Right hip pain 06/25/2021 Saw Ortho (Dr. Brownlee) Told bone on bone. Routine gynecological examination Dr Doty Valvular heart disease 02/10/2014 2D echo 01/2014: 1+ MVI and TI Vitamin D deficiency 02/10/2014 PAST SURGICAL HISTORY Procedure Laterality Date 2D ECHO (EXEP) ''2013 EF=60%, mild MVP, +1 MVI and TI DELIVERY ONLY , low cervical DELIVERY ONLY 07/07/2017 LIGATE FALLOPIAN TUBE 2017 at csection PAST SURGICAL HISTORY OF 08/2000 TENDON REPAIR RIGHT WRIST STRESS ECHO 02/13/2021 normal TONSILLECTOMY PRIMARY/SECONDARY Tonsillectomy Current Outpatient Medications Medication Sig Dispense Refill norethindrone (AYGESTIN) 5 mg tablet Take 1 tablet by mouth once daily. 50 tablet 1 acetaminophen (TYLENOL ARTHRITIS ORAL) Take 2 tablets by mouth two times a day as needed. meloxicam (MOBIC) 15 mg tablet Take 1 tablet by mouth once daily. 30 tablet 6 No current facility-administered medications for this visit. 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 Appears well. HEENT: Normocephalic, no sclera icterus, external ears normal Neck: Supple, No JVD Chest: Clear bilaterally, no wheezes, not labored. Heart: Normal S1 and S2, no abnormal sounds Abdomen: Soft, nontender, nondistended Extremities: No cyanosis, clubbing, gross deformities Neurological: Cranial nerves II through XII are intact bilaterally no focal deficits. Skin: Warm and dry with no rashes or ulcerations. Nodes: No palpable adenopathy in the cervical, supraclavicular, infraclavicular regions. Hematologic: no bruising or petechiae. Psychiatric: Alert and oriented x3. I have performed the physical exam today (02/10/2025) and have edited the note to correlate with current findings. Lab Results Component Value Date WBC 12.17 (H) 01/31/2025 HB 10.1 (L) 01/31/2025 MCV 77.2 (L) 01/31/2025 PLT 478 (H) 01/31/2025 Lab Results Component Value Date NA 139 01/31/2025 K 4.5 01/31/2025 CO2 26 01/31/2025 BUN 13 01/31/2025 CREAT 0.78 01/31/2025 TBILI 0.4 01/31/2025 TPROT 7.5 01/31/2025 ALB 4.5 01/31/2025 ALKPHOS 80 01/31/2025 ALT 14 01/31/2025 AST 15 01/31/2025 Ferritin Date Value Ref Ran (more content not included)... [facility] 02-10-2025 History of Present illness Narrative Progress Note Michael Castro 1985 Encounter date: 02/10/2025 HPI: Michael Castro is a 39 year old female presenting as a new referral for iron deficiency. She is fatigued. Feels that it is worse lately. She has tried PO iron in several formulations for several years. Unable to tolerate due to GI symptoms. Feels like lead sitting in stomach. Causes nausea and vomiting. Heavy menses. Periods are every 3 weeks last 7 days. Saturating 1 pad/hr. Passing large clots. 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 She is on norethindrone in efforts to slow bleeding. Planning for possible hysterectomy. She does have lower abd pains on a regular basis, generalized, stable. Constipation. Denies hematuria or hematochezia. Denies hx of abd surgeries, no GERD. No prior colonoscopy. Ice cravings all day long for as long as I can remember. Does not follow any particular dietary restrictions. Tried to eat primarily iron rich foods. No RLS. No hx of iron infusions or blood transfusions. No known personal or family hx of blood disorders or cancers. No PAST MEDICAL HISTORY Diagnosis Date Acute pain of both hips 03/01/2022 Cymbalta has helped. Anxiety with depression 06/25/2021 Arthritis of right hip 12/30/2024 X-ray 12/2024: mild Elevated hemoglobin A1c 07/26/2021 GERD without esophagitis 06/25/2021 Hip pain 07/11/2014 History of 2019 novel coronavirus disease (COVID-19) 11/01/2020 10/27/2020 Inflammatory polyarthropathy (HCC) 02/10/[address] Sandoval Iron deficiency anemia 10/24/2022 Low iron 01/23/2021 Muscle spasm 05/19/2013 MVP (mitral valve prolapse) 02/10/2014 On 2 D echo 01/2014 Pain in joint, ankle and foot 02/19/2012 Pseudotumor cerebri Right hip pain 06/25/2021 Saw Ortho (Dr. Brownlee) Told bone on bone. Routine gynecological examination Dr Doty Valvular heart disease 02/10/2014 2D echo 01/2014: 1+ MVI and TI Vitamin D deficiency 02/10/2014 PAST SURGICAL HISTORY Procedure Laterality Date 2D ECHO (EXEP) ''2013 EF=60%, mild MVP, +1 MVI and TI DELIVERY ONLY , low cervical DELIVERY ONLY 07/07/2017 LIGATE FALLOPIAN TUBE 2017 at [facility] PAST SURGICAL HISTORY OF 08/2000 TENDON REPAIR RIGHT WRIST STRESS ECHO 02/13/2021 normal TONSILLECTOMY PRIMARY/SECONDARY <AGE 10 02/2014 Tonsillectomy Current Outpatient Medications Medication Sig Dispense Refill norethindrone (AYGESTIN) 5 mg tablet Take 1 tablet by mouth once daily. 50 tablet 1 acetaminophen (TYLENOL ARTHRITIS ORAL) Take 2 tablets by mouth two times a day as needed. meloxicam (MOBIC) 15 mg tablet Take 1 tablet by mouth once daily. 30 tablet 6 No current facility-administered medications for this visit. 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 Appears well. HEENT: Normocephalic, no sclera icterus, external ears normal Neck: Supple, No JVD Chest: Clear bilaterally, no wheezes, not labored. Heart: Normal S1 and S2, no abnormal sounds Abdomen: Soft, nontender, nondistended Extremities: No cyanosis, clubbing, gross deformities Neurological: Cranial nerves II through XII are intact bilaterally no focal deficits. Skin: Warm and dry with no rashes or ulcerations. Nodes: No palpable adenopathy in the cervical, supraclavicular, infraclavicular regions. Hematologic: no bruising or petechiae. Psychiatric: Alert and oriented x3. I have performed the physical exam today (02/10/2025) and have edited the note to correlate with current findings. Lab Results Component Value Date WBC 12.17 (H) 01/31/2025 HB 10.1 (L) 01/31/2025 MCV 77.2 (L) 01/31/2025 PLT 478 (H) 01/31/2025 Lab Results Component Value Date NA 139 01/31/2025 K 4.5 01/31/2025 CO2 26 01/31/2025 BUN 13 01/31/2025 CREAT 0.78 01/31/2025 TBILI 0.4 01/31/2025 TPROT 7.5 01/31/2025 ALB 4.5 01/31/2025 ALKPHOS 80 01/31/2025 ALT 14 01/31/2025 AST 15 01/31/2025 Ferritin Date Value Ref Range Status 01/20/2025 9.4 (L) 14.7 - 205.1 ng/mL Final 01/22/2021 19.6 14.7 - 205.1 ng/mL Final 05/16/2016 34.2 9.0 - 150.0 ng/mL Final Iron Date Value Ref Range Status 01/20/2025 24 (L) 41 - 186 ug/dL Final 10/22/2022 31 (L) 41 - 186 ug/dL Final 09/25/2021 87 41 - 186 ug/dL Final 07/21/2021 35 (L) 41 - 186 ug/dL Final 01/22/2021 47 41 - 186 ug/dL Final TIBC Date Value Ref Range Status 01/20/2025 439 (H) 232 - 386 ug/dL Final 10/22/2022 398 (H) 232 - 386 ug/dL Final 09/25/2021 390 (H) 232 - 386 ug/dL Final 07/21/2021 425 (H) 232 - 386 ug/dL Final 01/22/2021 390 (H) 232 - 386 ug/dL Final Transferrin Saturation Date Value Ref Range Status 01/20/2025 5.5 (L) 15.0 - 57.0 % Final 10/22/2022 7.8 (L) 15.0 - 57.0 % Final 09/25/2021 22 15 - 57 % Final 07/21/2021 8 (L) 15 - 57 % Final 01/22/2021 12 (L) 15 - 57 % Final Assessment and Plan: Ms. Castro is a pleasant 39 year old woman presenting as a new referral for iron deficiency anemia Iron deficiency anemia - Hgb 10.1 on 3/10/25 - likely due to chronic blood loss associated with menorrhagia, malabsorption - has been iron deficient for several years, unable to tolerate PO iron due to GI side effects - following with [facility] for bleeding - encouraged screening scopes when able - plan for IV iron sucrose 200mg x5 - discussed possible need to repeat series due to ongoing bleeding and severity of iron deficiency, pt acknowledged - advised to call with any questions or concerns. Petra Grant APRN.T[employer]TER[employer] PRINTER I spent a total of 45 minutes on the date of the service which included preparing to see the patient, [id number] patient care, completing clinical documentation, obtaining and/or reviewing separately obtained history, performing a medically appropriate examination, and ordering medications, tests, or procedures. Portions of this note including HPI, ROS, impression/plan may have been copied forward as to provide important historical information essential in contributing to medical decision making. Documentation has been reviewed and edited as necessary to support clinical decision making for today's visit and to reflect my own independent evaluation of this patient. documented in this encounter [facility] 02-09-2025 Note HNO ID: [id number] Author: AMARIS HOPPER, RN Service: ? Author Type: Registered Nurse Type: Progress Notes Filed: 02/09/2025 09:39 Note Text: Blood Management referred on 02/03/2025 - patient has appointment with hematology on 02/10/2025. Anemia management will be deferred to hematology per Blood Management guidelines. Referral closed. [facility] 02-09-2025 History of Present illness Narrative Blood Management referred on 02/03/2025 - patient has appointment with hematology on 02/10/2025. Anemia management will be deferred to hematology per Blood Management guidelines. Referral closed. documented in this encounter [facility] 02-03-2025 Note HNO ID: [id number] Author: MINE DOTY MD Service: ? Author Type: Physician Type: Progress Notes Filed: 02/03/2025 12:39 Note Text: Maya is a 39 year old who presents for a pap and follow up. HPI: Patient states she is unable to tolerate PO iron. She has tried different formulations in the past. Patient reports pelvic pain in addition to her heavy menses. OB History Gravida4 Para2 Term1 Preterm1 AB2 Living2 SAB1 IAB0 Ectopic0 Multiple0 Live Births2 Convex Grinder History LMP: 01/18/2025 (Exact Date), Having periods Age at Menarche: 8 Age at First : Age at Menopause: Convex Grinder History Comments: Sexual Activity: Yes; Male; one clean tatoo, no transfusions Contraception: Tubal Ligation Menstrual Tracking History Flowsheet Row Office Visit from 01/20/2025 in OB/Gynecology Period Cycle (Days) 6 Period Duration (Days) 6 Menstrual Flow Heavy PAST MEDICAL HISTORY Diagnosis Date Acute pain of both hips 03/01/2022 Cymbalta has helped. Anxiety with depression 06/25/2021 Arthritis of right hip 12/30/2024 X-ray 12/2024: mild Elevated hemoglobin A1c 07/26/2021 GERD without esophagitis 06/25/2021 Hip pain 07/11/2014 History of 2019 novel coronavirus disease (COVID-19) 11/01/2020 10/27/2020 Inflammatory polyarthropathy (HCC) 02/10/[address] Sandoval Iron deficiency anemia 10/24/2022 Low iron 01/23/2021 Muscle spasm 05/19/2013 MVP (mitral valve prolapse) 02/10/2014 On 2 D echo 01/2014 Pain in joint, ankle and foot 02/19/2012 Pseudotumor cerebri Right hip pain 06/25/2021 Saw Ortho (Dr. Brownlee) Told bone on bone. Routine gynecological examination Dr Doty Valvular heart disease 02/10/2014 2D echo 01/2014: 1+ MVI and TI Vitamin D deficiency 02/10/2014 PAST SURGICAL HISTORY Procedure Laterality Date 2D ECHO (EXEP) ' EF=60%, mild MVP, +1 MVI and TI DELIVERY ONLY , low cervical DELIVERY ONLY 07/07/2017 LIGATE FALLOPIAN TUBE 2017 at csection PAST SURGICAL HISTORY OF 08/2000 TENDON REPAIR RIGHT WRIST STRESS ECHO 02/13/2021 normal TONSILLECTOMY PRIMARY/SECONDARY Tonsillectomy FAMILY HISTORY Problem Relation Age of Onset Seizures Mother tonic-clonic, quiescent off medication No Known Problems Father Diabetes Maternal Grandfather Hypertension Maternal Grandfather Heart Maternal Grandfather had a difibulator Hypertension Paternal Grandmother other (Other) Paternal Grandmother 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 No bloating, early satiety, indigestion, or increased flatulence. Bladder: No dysuria, gross hematuria, urinary frequency, urinary urgency, or incontinence. Breast: No breast lumps, nipple d/c, overlying skin changes, redness or skin retraction. Allergies and current medication updated:Yes SENSITIVE EXAM: The sensitive examination was discussed with the Patient or Patient's Authorized Purchasing Internship. As applicable, any other physician, advance practice provider, medical student, or other health professional student that will be observing or involved in the sensitive examination for educational or training purposes was discussed with the Patient or Authorized Purchasing Internship. The Patient or Authorized Purchasing Internship has agreed to proceed with the sensitive examination. (Sensitive examination includes inspection and/or palpation of the breasts, pelvis, prostate and anorectal regions). EXAM: BP 136/74 Ht 5' 1.25 (1.56m) Wt 231 lb (104.8kg) LMP 01/18/2025 BMI 43.28 kg/(m2). GENERAL: pleasant, female in no apparent distress BREAST: soft, non-tender, symmetric, no dominant mass, normal nipple-areolar complex, no lymphadenopathy, and no nipple discharge CHEST: Normal inspiratory effort ABDOMEN: soft, non-tender, and no masses PELVIC: external genitalia normal, normal Bartholin's glands, urethra, [place]'s glands, no vulvar lesions, no cervical lesions, good vaginal support, physiologic discharge present, normal appearing perineal body and perianal region BIMANUAL: uterus normal size, shape and consistency, no adnexal masses, and non-tender RECTOVAGINAL: deferred. NEURO: alert and oriented x3,exam grossly non-focal EXTREMITIES: normal ASSESSMENT/PLAN: 1) Health maintenance: Pap done with HPV. Mammogram follow up ordered. Nutrition, exercise and routine health maintenance exams reviewed. 2) Contraception: tubal sterilization. Contraceptive options reviewed and information provided. 3) Heavy menses AND pelvic pain - reviewed pelvic U (more content not included)... [facility] 02-03-2025 History of Present illness Narrative Maya is a 39 year old who presents for a pap and follow up. HPI: Patient states she is unable to tolerate PO iron. She has tried different formulations in the past. Patient reports pelvic pain in addition to her heavy menses. OB History Gravida4 Para2 Term1 Preterm1 AB2 Living2 SAB1 IAB0 Ectopic0 Multiple0 Live Births2 Convex Grinder History LMP: 01/18/2025 (Exact Date), Having periods Age at Menarche: 8 Age at First : Age at Menopause: Convex Grinder History Comments: Sexual Activity: Yes; Male; one clean tatoo, no transfusions Contraception: Tubal Ligation Menstrual Tracking History Flowsheet Row Office Visit from 01/20/2025 in OB/Gynecology Period Cycle (Days) 6 Period Duration (Days) 6 Menstrual Flow Heavy PAST MEDICAL HISTORY Diagnosis Date Acute pain of both hips 03/01/2022 Cymbalta has helped. Anxiety with depression 06/25/2021 Arthritis of right hip 12/30/2024 X-ray 12/2024: mild Elevated hemoglobin A1c 07/26/2021 GERD without esophagitis 06/25/2021 Hip pain 07/11/2014 History of 2019 novel coronavirus disease (COVID-19) 11/01/2020 10/27/2020 Inflammatory polyarthropathy (HCC) 02/10/[address] Sandoval Iron deficiency anemia 10/24/2022 Low iron 01/23/2021 Muscle spasm 05/19/2013 MVP (mitral valve prolapse) 02/10/2014 On 2 D echo 01/2014 Pain in joint, ankle and foot 02/19/2012 Pseudotumor cerebri Right hip pain 06/25/2021 Saw Ortho (Dr. Brownlee) Told bone on bone. Routine gynecological examination Dr Doty Valvular heart disease 02/10/2014 2D echo 01/2014: 1+ MVI and TI Vitamin D deficiency 02/10/2014 PAST SURGICAL HISTORY Procedure Laterality Date 2D ECHO (EXEP) EF=60%, mild MVP, +1 MVI and TI DELIVERY ONLY , low cervical DELIVERY ONLY 07/07/2017 LIGATE FALLOPIAN TUBE 2017 at csection PAST SURGICAL HISTORY OF 08/2000 TENDON REPAIR RIGHT WRIST STRESS ECHO 02/13/2021 normal TONSILLECTOMY PRIMARY/SECONDARY <AGE 10 02/2014 Tonsillectomy FAMILY HISTORY Problem Relation Age of Onset Seizures Mother tonic-clonic, quiescent off medication No Known Problems Father Diabetes Maternal Grandfather Hypertension Maternal Grandfather Heart Maternal Grandfather had a difibulator Hypertension Paternal Grandmother other (Other) Paternal Grandmother 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 No bloating, early satiety, indigestion, or increased flatulence. Bladder: No dysuria, gross hematuria, urinary frequency, urinary urgency, or incontinence. Breast: No breast lumps, nipple d/c, overlying skin changes, redness or skin retraction. Allergies and current medication updated:Yes SENSITIVE EXAM: The sensitive examination was discussed with the Patient or Patient's Authorized Purchasing Internship. As applicable, any other physician, advance practice provider, medical student, or other health professional student that will be observing or involved in the sensitive examination for educational or training purposes was discussed with the Patient or Authorized Purchasing Internship. The Patient or Authorized Purchasing Internship has agreed to proceed with the sensitive examination. (Sensitive examination includes inspection and/or palpation of the breasts, pelvis, prostate and anorectal regions). EXAM: BP 136/74 Ht 5' 1.25 (1.56m) Wt 231 lb (104.8kg) LMP 01/18/2025 BMI 43.28 kg/(m^2). GENERAL: pleasant, female in no apparent distress BREAST: soft, non-tender, symmetric, no dominant mass, normal nipple-areolar complex, no lymphadenopathy, and no nipple discharge CHEST: Normal inspiratory effort ABDOMEN: soft, non-tender, and no masses PELVIC: external genitalia normal, normal Bartholin's glands, urethra, [place]'s glands, no vulvar lesions, no cervical lesions, good vaginal support, physiologic discharge present, normal appearing perineal body and perianal region BIMANUAL: uterus normal size, shape and consistency, no adnexal masses, and non-tender RECTOVAGINAL: deferred. NEURO: alert and oriented x3,exam grossly non-focal EXTREMITIES: normal ASSESSMENT/PLAN: 1) Health maintenance: Pap done with HPV. Mammogram follow up ordered. Nutrition, exercise and routine health maintenance exams reviewed. 2) Contraception: tubal sterilization. Contraceptive options reviewed and information provided. 3) Heavy menses & pelvic pain - reviewed pelvic US. Discussed R/B/A of management options. She will start norethindrone 5mg daily but was advised she can take up to tid for heavy menses. Also patient wishes to schedule a surgical consult to discuss ablation or hysterectomy. 4) Anemia - blood management referral for IV iron. 5) Follow up one year or sooner as needed. Mine Doty MD documented in this encounter [facility] 02-01-2025 Telephone encounter Note Pt notified of results and instructions. Sarah Evans LPN [facility] 02-01-2025 Miscellaneous Notes Pt notified of results and instructions. Sarah Evans LPN Breann was negative. Continue as previously discussed. Pt notified of results with verbalized understanding. Sarah Evans LPN Hemoglobin has improved some. Still anemic. Cholesterol is okay. A1c is normal at 5.6%. this has improved since previous lab checks. Metabolic panel is normal Vitamin levels are wnl. There's one lab that I'm waiting on yet. Thanks. Shena Dwyer PA-C documented in this encounter [facility] 02-01-2025 Telephone encounter Note Breann was negative. Continue as previously discussed. [facility] Work Phone: 02-01-2025 Telephone encounter Note Pt notified of results with verbalized understanding. Sarah Evans LPN [facility] 02-01-2025 Telephone encounter Note Hemoglobin has improved some. Still anemic. Cholesterol is okay. A1c is normal at 5.6%. this has improved since previous lab checks. Metabolic panel is normal Vitamin levels are wnl. There's one lab that I'm waiting on yet. Thanks. Shena Dwyer PA-C [facility] 01-31-2025 Telephone encounter Note This has been scheduled for02/10, date and time per pt. Kala Kay [facility] 01-31-2025 Miscellaneous Notes This has been scheduled for02/10, date and time per pt. Kala Kay Patient was referred to Hematology by Shena Dwyer for Iron deficiency anemia, unspecified iron deficiency anemia type [D50.9]; Weight loss [R63.4]. Please advise. documented in this encounter [facility] 01-31-2025 Telephone encounter Note Patient was referred to Hematology by Shena Dwyer for Iron deficiency anemia, unspecified iron deficiency anemia type [D50.9]; Weight loss [R63.4]. Please advise. [facility] 01-31-2025 Note HNO ID: [id number] Author: SHENA DWYER PA-C Service: ? Author Type: Physician [place] Worker Type: Progress Notes Filed: 01/31/2025 11:52 Note Text: Chief Complaint Patient presents with: Yearly Exam HPI Michael Castro is a 39 year old female who presents here today for physical. Patient with hx as below. Recently saw PCP and was referred to ortho. Injection was done last week. Has been dealing with chronic fatigue. Ready to come up with a definitive cause and plans to follow up on the testing. Recent labs +anemia. Recently told to start iron. However she has never been able to tolerate oral iron. Being worked up for frequent heavy menstrual bleeding. Recent US showed fibroids. 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 Has had significant weight loss over the years. . States she has not specifically been trying. Really struggling with her day to day tasks. Some days struggling to care for her child. She also has a follow up with neuro. Reports chronic daily Headaches. Suspects she will end up needed another spinal puncture to release excess fluid. Last one in 2021 Last 10 Encounter Wt Readings: Date: Wt: 01/31/2025 104.3 kg (230 lb) 10/20/2024 108.5 kg (239 lb 3.2 oz) 02/26/2023 119.4 kg (263 lb 3.2 oz) Past medical history, appointments, medications, allergies reviewed. Previous Medical History PAST MEDICAL HISTORY Diagnosis Date Acute pain of both hips 03/01/2022 Cymbalta has helped. Anxiety with depression 06/25/2021 Arthritis of right hip 12/30/2024 X-ray 12/2024: mild Elevated hemoglobin A1c 07/26/2021 GERD without esophagitis 06/25/2021 Hip pain 07/11/2014 History of 2019 novel coronavirus disease (COVID-19) 11/01/2020 10/27/2020 Inflammatory polyarthropathy (HCC) 02/10/[address] Sandoval Iron deficiency anemia 10/24/2022 Low iron 01/23/2021 Muscle spasm 05/19/2013 MVP (mitral valve prolapse) 02/10/2014 On 2 D echo 01/2014 Pain in joint, ankle and foot 02/19/2012 Pseudotumor cerebri Right hip pain 06/25/2021 Saw Ortho (Dr. Brownlee) Told bone on bone. Routine gynecological examination Dr Doty Valvular heart disease 02/10/2014 2D echo 01/2014: 1+ MVI and TI Vitamin D deficiency 02/10/2014 Previous Surgical History PAST SURGICAL HISTORY Procedure Laterality Date 2D ECHO (EXEP) EF=60%, mild MVP, +1 MVI and TI DELIVERY ONLY , low cervical DELIVERY ONLY 07/07/2017 LIGATE FALLOPIAN TUBE 2017 at csection PAST SURGICAL HISTORY OF 08/2000 TENDON REPAIR RIGHT WRIST STRESS ECHO 02/13/2021 normal TONSILLECTOMY PRIMARY/SECONDARY Tonsillectomy Family History FAMILY HISTORY Problem Relation Age of Onset Seizures Mother tonic-clonic, quiescent off medication No Known Problems Father Diabetes Maternal Grandfather Hypertension Maternal Grandfather Heart Maternal Grandfather had a difibulator Hypertension Paternal Grandmother other (Other) Paternal Grandmother No 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 meloxicam (MOBIC) 15 mg tablet Take 1 tablet by mouth once daily. No current facility-administered medications on file prior to visit. Social History Social History Tobacco Use Smoking status: Never Smokeless tobacco: Never Vaping Use Vaping status: Never Used Substance Use Topics Alcohol use: Yes Comment: Occasionally, not while Drug use: No Review of Symptoms REVIEW OF SYSTEMS See HPI No chest pain or shortness of breath. EXAM: BP 112/82 (BP Site: Left Arm, BP Position: Sitting, BP Cuff Size: Regular Adult) Pulse 80 Temp 36.3 ?C (97.3 ?F) Resp 18 Ht 155.5 cm (5' 1.22) Wt 104.3 kg (230 lb) LMP 01/18/2025 (Exact Date) SpO2 100% BMI 43.15 kg/m? General Appearance: Well appearing, alert, in no acute distress, well-hydrated, well nourished. and Obese. Skin: Skin color, texture, turgor normal, no suspicious rashes or lesions. Head: Normocephalic, no masses, lesions, tenderness or abnormalities. Eyes: Anicteric sclera. Pupils are equally round and reactive to light. Extraocular movements are intact. . Ears: External ears normal, canals clear, TMs pearly barnett. Nose/Sinuses: Nares normal, septum midline, mucosa normal, no drainage or sinus tenderness. Oropharynx: Lips, mucosa, and tongue normal, teeth and gums normal, oropharynx normal. Neck: Supple, no adenopathy; thyroid symmetric, normal size, no bruits. Lungs: Lungs clear to auscultation. No wheezing, rhonchi, rales.. Hea (more content not included)... [facility] 01-31-2025 History of Present illness Narrative Chief Complaint Patient presents with: Yearly Exam HPI Michael Castro is a 39 year old female who presents here today for physical. Patient with hx as below. Recently saw PCP and was referred to ortho. Injection was done last week. Has been dealing with chronic fatigue. Ready to come up with a definitive cause and plans to follow up on the testing. Recent labs +anemia. Recently told to start iron. However she has never been able to tolerate oral iron. Being worked up for frequent heavy menstrual bleeding. Recent US showed fibroids. 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 Has had significant weight loss over the years. . States she has not specifically been trying. Really struggling with her day to day tasks. Some days struggling to care for her child. She also has a follow up with neuro. Reports chronic daily Headaches. Suspects she will end up needed another spinal puncture to release excess fluid. Last one in 2021 Last 10 Encounter Wt Readings: Date: Wt: 01/31/2025 104.3 kg (230 lb) 10/20/2024 108.5 kg (239 lb 3.2 oz) 02/26/2023 119.4 kg (263 lb 3.2 oz) Past medical history, appointments, medications, allergies reviewed. Previous Medical History PAST MEDICAL HISTORY Diagnosis Date Acute pain of both hips 03/01/2022 Cymbalta has helped. Anxiety with depression 06/25/2021 Arthritis of right hip 12/30/2024 X-ray 12/2024: mild Elevated hemoglobin A1c 07/26/2021 GERD without esophagitis 06/25/2021 Hip pain 07/11/2014 History of 2019 novel coronavirus disease (COVID-19) 11/01/2020 10/27/2020 Inflammatory polyarthropathy (HCC) 02/10/[address] Sandoval Iron deficiency anemia 10/24/2022 Low iron 01/23/2021 Muscle spasm 05/19/2013 MVP (mitral valve prolapse) 02/10/2014 On 2 D echo 01/2014 Pain in joint, ankle and foot 02/19/2012 Pseudotumor cerebri Right hip pain 06/25/2021 Saw Ortho (Dr. Brownlee) Told bone on bone. Routine gynecological examination Dr Doty Valvular heart disease 02/10/2014 2D echo 01/2014: 1+ MVI and TI Vitamin D deficiency 02/10/2014 Previous Surgical History PAST SURGICAL HISTORY Procedure Laterality Date 2D ECHO (EXEP) ' EF=60%, mild MVP, +1 MVI and TI DELIVERY ONLY , low cervical DELIVERY ONLY 07/07/2017 LIGATE FALLOPIAN TUBE 2017 at csection PAST SURGICAL HISTORY OF 08/2000 TENDON REPAIR RIGHT WRIST STRESS ECHO 02/13/2021 normal TONSILLECTOMY PRIMARY/SECONDARY <AGE 10 02/2014 Tonsillectomy Family History FAMILY HISTORY Problem Relation Age of Onset Seizures Mother tonic-clonic, quiescent off medication No Known Problems Father Diabetes Maternal Grandfather Hypertension Maternal Grandfather Heart Maternal Grandfather had a difibulator Hypertension Paternal Grandmother other (Other) Paternal Grandmother No 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 meloxicam (MOBIC) 15 mg tablet Take 1 tablet by mouth once daily. No current facility-administered medications on file prior to visit. Social History Social History Tobacco Use Smoking status: Never Smokeless tobacco: Never Vaping Use Vaping status: Never Used Substance Use Topics Alcohol use: Yes Comment: Occasionally, not while Drug use: No Review of Symptoms REVIEW OF SYSTEMS See HPI No chest pain or shortness of breath. EXAM: BP 112/82 (BP Site: Left Arm, BP Position: Sitting, BP Cuff Size: Regular Adult) Pulse 80 Temp 36.3 C (97.3 F) Resp 18 Ht 155.5 cm (5' 1.22) Wt 104.3 kg (230 lb) LMP 01/18/2025 (Exact Date) SpO2 100% BMI 43.15 kg/m General Appearance: Well appearing, alert, in no acute distress, well-hydrated, well nourished. and Obese. Skin: Skin color, texture, turgor normal, no suspicious rashes or lesions. Head: Normocephalic, no masses, lesions, tenderness or abnormalities. Eyes: Anicteric sclera. Pupils are equally round and reactive to light. Extraocular movements are intact. . Ears: External ears normal, canals clear, TMs pearly barnett. Nose/Sinuses: Nares normal, septum midline, mucosa normal, no drainage or sinus tenderness. Oropharynx: Lips, mucosa, and tongue normal, teeth and gums normal, oropharynx normal. Neck: Supple, no adenopathy; thyroid symmetric, normal size, no bruits. Lungs: Lungs clear to auscultation. No wheezing, rhonchi, rales.. Heart: RRR without murmur, gallop, or rubs. No ectopy. Abdomen: Normal abdominal exam, Abdomen soft, non-tender. Bowel sounds normal. No masses, organomegaly. Extremities: No deformities, edema, skin discoloration, clubbing or cyanosis. Good capillary refill. . Musculoskeletal: No joint swelling, deformity, or tenderness. Neurologic: Gait normal. Reflexes normal and symmetric. Sensation grossly intact.. Health Maintenance List Cervical Cancer Screening due on 02/24/2024 Influenza Vaccine(1) due on 05/23/2025 Covid-19 Vaccine(3 - season) due on 01/31/2026 Mammogram Screening due on 11/03/2025 DTaP,Tdap,Td Vaccine(2 - Td or Tdap) due on 06/05/2027 HIV Screening Completed Hepatitis B Vaccine Discontinued Hepatitis C Screening Discontinued Data reviewed Latest Ref Rng 01/20/2025 WBC 3.70 - 11.00 k/uL 8.50 RBC 3.90 - 5.20 m/uL 4.29 Hemoglobin 11.5 - 15.5 g/dL 9.6 (L) Hematocrit 36.0 - 46.0 % 32.4 (L) MCV 80.0 - 100.0 fL 75.5 (L) MCH 26.0 - 34.0 pg 22.4 (L) MCHC 30.5 - 36.0 g/dL 29.6 (L) RDW-CV 11.5 - 15.0 % 18.3 (H) Platelet Count 150 - 400 k/uL 454 (H) MPV 9.0 - 12.7 fL 9.8 Neut% % 65.0 Abs Neut (ANC) 1.45 - 7.50 k/uL 5.52 Lymph% % 25.4 Abs Lymph 1.00 - 4.00 k/uL 2.16 [place]% % 6.9 Abs [place] <0.87 k/uL 0.59 Eosin% % 1.8 Abs Eosin <0.46 k/uL 0.15 Baso% % 0.7 Abs Baso <0.11 k/uL 0.06 Immature Gran % % 0.2 IMMATURE GRANS (ABS) <0.10 k/uL <0.03 NRBC /100 WBC 0.0 Absolute nRBC <0.01 k/uL <0.01 DTYPE Auto Iron 41 - 186 ug/dL 24 (L) TIBC 232 - 386 ug/dL 439 (H) Transferrin Saturation 15.0 - 57.0 % 5.5 (L) Ferritin 14.7 - 205.1 ng/mL 9.4 (L) TSH 0.270 - 4.200 mIU/L 0.985 Legend: (L) Low (H) High ASSESSMENT/PLAN: 1. Well adult exam - ICD9: V70.0, ICD10: Z00.00 (primary diagnosis) - Counseled on healthy diet and regular exercise 2. Vitamin D deficiency - ICD9: 268.9, ICD10: E55.9 check - VITAMIN D 25 HYDROXY 3. Low iron - ICD9: 280.9, ICD10: E61.1 Consult to hematology for help in getting iron levels up. 4. Morbid obesity (HCC) - ICD9: 278.01, ICD10: E66.01 Weight decreasing - Behavioral intervention 5. Inflammatory polyarthropathy (HCC) - ICD9: 714.9, ICD10: M06.4 May need follow up with rheumatology 6. Elevated hemoglobin A1c - ICD9: 790.29, ICD10: R73.09 Check: - HEMOGLOBIN A1C - URINALYSIS, WITH MICROSCOPIC 7. MVP (mitral valve prolapse) - ICD9: 424.0, ICD10: I34.1 No new symptoms 8. Anxiety with depression - ICD9: 300.4, ICD10: F41.8 Stable. Consider change in management in future. 9. Medication management - ICD9: V58.69, ICD10: Z79.899 10. Chronic fatigue - ICD9: 780.79, ICD10: R53.82 Check: - COMPREHENSIVE METABOLIC PANEL - VITAMIN B12 - BREANN BY IFA WITH REFLEX 11. Iron deficiency anemia, unspecified iron deficiency anemia type - ICD9: 280.9, ICD10: D50.9 - COMPLETE BLOOD COUNT AND DIFFERENTIAL - FOLATE, SERUM - CONSULT TO GENERAL SURGERY - CONSULT TO HEMATOLOGY 12. Encounter for lipid screening for cardiovascular disease - ICD9: V77.91, V81.2, ICD10: Z13.220, Z13.6 - LIPID PANEL, NONFASTING 13. Weight loss - ICD9: 783.21, ICD10: R63.4 - CONSULT TO GENERAL SURGERY 14. Pseudotumor cerebri - ICD9: 348.2, ICD10: G93.2 Continue with neuro. FMLA for intermittent leave filled out for patient's multiple specialty appointments. Shena Dwyer PA-C documented in this encounter [facility] 03-06-2025 Radiology Diagnostic study note [facility] Imaging Services [address] [place] [address] Inj/Asp Jarett Jt Should/Hip/Knee MR#: [id number] Acct: [id number] Name: MICHAEL CASTRO Rep #: [id number] : 1985 F 39 From: Jen Cloud MD PCP: Care Physician,No Primary Status: REG CLI Study:Inj/Asp Jarett Jt Should/Hip/Knee Date of Exam: 01/27/25 Exam# [id number] Ordering Dr: Montez Brownlee MD PROCEDURE: RIGHT HIP INJECTION UNDER FLUOROSCOPY REASON FOR EXAM: RIGHT HIP PAIN. OSTEOARTHRITIS. NO KNOWN INJURY. TECHNIQUE: I was the proctoring radiologist for Nati Carrillo NP during this hip injection procedure. An overview of the procedure with the patient occurred in the imaging suite. The patient was given ample opportunity to ask questions regarding the procedure. The patient signed the informed consent form. The patient was positioned on the fluoroscopic table in the supine position. The needle puncture site was marked under fluoroscopy. Sterile preparation of the skin was performed as usual. Local anesthesia was accomplished with lidocaine 2%. A 25 gauge, 3-1/2 inch spinal needle was then advanced through the skin until the needle tip touched the hip cortex. A small amount of Isovue-300 contrast was injected to document appropriate position of the needle in the joint capsule. Following documentation of the needle tip position, a mixture of 2 mL (80 mg) Kenalog and 3 mL of 0.5% bupivicaine was injected into the joint capsule. COMPARISON: None. FINDINGS: Unremarkable hip injection under fluoroscopy. RAD/Inj/Asp Jarett Jt Should/Hip/Knee IMPRESSION: 1. SUCCESSFUL RIGHT HIP INJECTION under fluoroscopy as detailed above. Patient tolerated the procedure well. Thank you for this referral. Reading Location: [place] [address] CC: Dr. Erick Brownlee MD; No Primary Care Physician ~ Director Of Partner Marketing: Signed [facility] 01-24-2025 Note HNO ID: [id number] Author: ELA CROFT MD Service: ? Author Type: Physician Type: Progress Notes Filed: 01/24/2025 14:57 Note Text: Michael Castro is a 39 year old female who presented for hand bobbin cleaner ultrasound today. Encounter Diagnosis ICD-10-CM 1. Abnormal uterine bleeding (AUB) N93.9 Please see report under imaging tab. Ela Croft MD January 24, 2025 2:54 PM [facility] 01-24-2025 History of Present illness Narrative Michael Castro is a 39 year old female who presented for hand bobbin cleaner ultrasound today. Encounter Diagnosis ICD-10-CM 1. Abnormal uterine bleeding (AUB) N93.9 Please see report under imaging tab. Ela Croft MD January 24, 2025 2:54 PM documented in this encounter [facility] 01-20-2025 Note HNO ID: [id number] Author: MINE DOTY MD Service: ? Author Type: Physician Type: Progress Notes Filed: 01/20/2025 10:13 Note Text: Michael Castro is a 39 year old female who presents for problem visit. HPI: Patient presents with menses concerns. Last 2 menses were 12/26 and then 01/17. Menses are about every 3 weeks since July. Menses last about 5 days. Flow is heavy and she changes a pad every 2-4 hours. Patient also reports pain with menses and orgasm. She reports feeling drained. Her iron levels are low. OB History Gravida4 Para2 Term1 Preterm1 AB2 Living2 SAB1 IAB0 Ectopic0 Multiple0 Live Births2 Convex Grinder History LMP: 01/18/2025 (Exact Date), Having periods Age at Menarche: 8 Age at First : Age at Menopause: Convex Grinder History Comments: Sexual Activity: Yes; Male; one clean tatoo, no transfusions Contraception: Tubal Ligation Menstrual Tracking History Flowsheet Row Office Visit from 01/20/2025 in OB/Gynecology Period Cycle (Days) 6 Period Duration (Days) 6 Menstrual Flow Heavy PAST MEDICAL HISTORY Diagnosis Date Acute pain of both hips 03/01/2022 Cymbalta has helped. Anxiety with depression 06/25/2021 Arthritis of right hip 12/30/2024 X-ray 12/2024: mild Elevated hemoglobin A1c 07/26/2021 GERD without esophagitis 06/25/2021 Hip pain 07/11/2014 History of 2019 novel coronavirus disease (COVID-19) 11/01/2020 10/27/2020 Inflammatory polyarthropathy (HCC) 02/10/[address] Sandoval Iron deficiency anemia 10/24/2022 Low iron 01/23/2021 Muscle spasm 05/19/2013 MVP (mitral valve prolapse) 02/10/2014 On 2 D echo 01/2014 Pain in joint, ankle and foot 02/19/2012 Pseudotumor cerebri Right hip pain 06/25/2021 Saw Ortho (Dr. Brownlee) Told bone on bone. Routine gynecological examination Dr Doty Valvular heart disease 02/10/2014 2D echo 01/2014: 1+ MVI and TI Vitamin D deficiency 02/10/2014 PAST SURGICAL HISTORY Procedure Laterality Date 2D ECHO (EXEP) ' EF=60%, mild MVP, +1 MVI and TI DELIVERY ONLY , low cervical DELIVERY ONLY 07/07/2017 LIGATE FALLOPIAN TUBE 2017 at csection PAST SURGICAL HISTORY OF 08/2000 TENDON REPAIR RIGHT WRIST STRESS ECHO 02/13/2021 normal TONSILLECTOMY PRIMARY/SECONDARY Tonsillectomy FAMILY HISTORY Problem Relation Age of Onset Seizures Mother tonic-clonic, quiescent off medication No Known Problems Father Diabetes Maternal Grandfather Hypertension Maternal Grandfather Heart Maternal Grandfather had a difibulator Hypertension Paternal Grandmother other (Other) Paternal Grandmother No breast/hand 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 meloxicam (MOBIC) 15 mg tablet Take 1 tablet by mouth once daily. No current facility-administered medications for this visit. Allergies As of Date: 01/20/2025 Allergen Noted Reaction DIAMOX [ACETAZOLAMIDE] 05/16/2016 Other: See Comments Fully Assessed 01/20/2025 Allergies and current medication updated:Yes SENSITIVE EXAM: Sensitive exam not performed. EXAM: BP 124/82 Ht 5' 1.5 (1.56m) Wt 231 lb (104.8kg) LMP 01/18/2025 BMI 42.95 kg/(m2). GENERAL: pleasant, female in no apparent distress ASSESSMENT AND PLAN: Assessment AND Plan Abnormal mammogram Orders: SARATH DIAGNOSTIC LEFT; Future US BREAST LTD LEFT; Future Abnormal uterine bleeding (AUB) Orders: PELVIC US WHI; Future IRON AND TIBC; Future FERRITIN; Future THYROID STIMULATING HORMONE; Future COMPLETE BLOOD COUNT AND DIFFERENTIAL; Future Malaise and fatigue Orders: IRON AND TIBC; Future FERRITIN; Future THYROID STIMULATING HORMONE; Future COMPLETE BLOOD COUNT AND DIFFERENTIAL; Future Pap AND pelvic exam at next visit. Medical Decision Making: Problems: Moderate: New problem with uncertain prognosis Data: Unique test(s) ordered: 3+ Risk: Low: Low risk from testing/treatment Medical Decision Making Level: 4 - Moderate Mine Doty MD [facility] 01-20-2025 History of Present illness Narrative Michael Castro is a 39 year old female who presents for problem visit. HPI: Patient presents with menses concerns. Last 2 menses were / and then 01/17. Menses are about every 3 weeks since July. Menses last about 5 days. Flow is heavy and she changes a pad every 2-4 hours. Patient also reports pain with menses and orgasm. She reports feeling drained. Her iron levels are low. OB History Gravida4 Para2 Term1 Preterm1 AB2 Living2 SAB1 IAB0 Ectopic0 Multiple0 Live Births2 Convex Grinder History LMP: 01/18/2025 (Exact Date), Having periods Age at Menarche: 8 Age at First : Age at Menopause: Convex Grinder History Comments: Sexual Activity: Yes; Male; one clean tatoo, no transfusions Contraception: Tubal Ligation Menstrual Tracking History Flowsheet Row Office Visit from 01/20/2025 in OB/Gynecology Period Cycle (Days) 6 Period Duration (Days) 6 Menstrual Flow Heavy PAST MEDICAL HISTORY Diagnosis Date Acute pain of both hips 03/01/2022 Cymbalta has helped. Anxiety with depression 06/25/2021 Arthritis of right hip 12/30/2024 X-ray 12/2024: mild Elevated hemoglobin A1c 07/26/2021 GERD without esophagitis 06/25/2021 Hip pain 07/11/2014 History of 2019 novel coronavirus disease (COVID-19) 11/01/2020 10/27/2020 Inflammatory polyarthropathy (HCC) 02/10/[address] Sandoval Iron deficiency anemia 10/24/2022 Low iron 01/23/2021 Muscle spasm 05/19/2013 MVP (mitral valve prolapse) 02/10/2014 On 2 D echo 01/2014 Pain in joint, ankle and foot 02/19/2012 Pseudotumor cerebri Right hip pain 06/25/2021 Saw Ortho (Dr. Brownlee) Told bone on bone. Routine gynecological examination Dr Doty Valvular heart disease 02/10/2014 2D echo 01/2014: 1+ MVI and TI Vitamin D deficiency 02/10/2014 PAST SURGICAL HISTORY Procedure Laterality Date 2D ECHO (EXEP) EF=60%, mild MVP, +1 MVI and TI DELIVERY ONLY , low cervical DELIVERY ONLY 07/07/2017 LIGATE FALLOPIAN TUBE 2017 at csection PAST SURGICAL HISTORY OF 08/2000 TENDON REPAIR RIGHT WRIST STRESS ECHO 02/13/2021 normal TONSILLECTOMY PRIMARY/SECONDARY <AGE 12 02/2014 Tonsillectomy FAMILY HISTORY Problem Relation Age of Onset Seizures Mother tonic-clonic, quiescent off medication No Known Problems Father Diabetes Maternal Grandfather Hypertension Maternal Grandfather Heart Maternal Grandfather had a difibulator Hypertension Paternal Grandmother other (Other) Paternal Grandmother No breast/hand 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 meloxicam (MOBIC) 15 mg tablet Take 1 tablet by mouth once daily. No current facility-administered medications for this visit. Allergies As of Date: 01/20/2025 Allergen Noted Reaction DIAMOX [ACETAZOLAMIDE] 05/16/2016 Other: See Comments Fully Assessed 01/20/2025 Allergies and current medication updated:Yes SENSITIVE EXAM: Sensitive exam not performed. EXAM: BP 124/82 Ht 5' 1.5 (1.56m) Wt 231 lb (104.8kg) LMP 01/18/2025 BMI 42.95 kg/(m^2). GENERAL: pleasant, female in no apparent distress ASSESSMENT AND PLAN: Assessment & Plan Abnormal mammogram Orders: SARATH DIAGNOSTIC LEFT; Future US BREAST LTD LEFT; Future Abnormal uterine bleeding (AUB) Orders: PELVIC US WHI; Future IRON AND TIBC; Future FERRITIN; Future THYROID STIMULATING HORMONE; Future COMPLETE BLOOD COUNT AND DIFFERENTIAL; Future Malaise and fatigue Orders: IRON AND TIBC; Future FERRITIN; Future THYROID STIMULATING HORMONE; Future COMPLETE BLOOD COUNT AND DIFFERENTIAL; Future Pap & pelvic exam at next visit. Medical Decision Making: Problems: Moderate: New problem with uncertain prognosis Data: Unique test(s) ordered: 3+ Risk: Low: Low risk from testing/treatment Medical Decision Making Level: 4 - Moderate Mine Doty MD documented in this encounter [facility] 01-04-2025 Note HNO ID: [id number] Author: MAGGI STALLINGS MA Service: ? Author Type: Odd Job Laborer Type: Progress Notes Filed: 01/17/2025 12:57 Note Text: Referral done in computer. Order faxed to [facility] pharmacy, radiology, and scheduling. [facility] 01-04-2025 History of Present illness Narrative Referral done in computer. Order faxed to [facility] pharmacy, radiology, and scheduling. Erick Brownlee MD Department of Orthopaedics Orthopaedics [address] [facility] [address] Dept: [phone] Dept January 03, 2025 CHIEF COMPLAINT: New and Pain of the Right Hip (Referred by Dr Cruz /Last seen 07/11/14 Right ankle and hip pain) HPI Patient here for evaluation right hip pain. Patient states her pain is on the lateral aspect. Some days her hips are tight that she has difficulty sitting. 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 She does do a lot of heavy lifting at work. Her 16 year old daughter is a special needs child that weighs 88 pounds and has difficulty carrying her. Taking Mobic for the pain and feels helps her pain some. Feels it makes her pain duller. Has been getting monthly massages and feels those help as well. X-rays done on 12/28/24. ASSESSMENT: M16.11 Primary osteoarthritis of right hip (primary encounter diagnosis) M25.551, G89.29 Chronic right hip pain PLAN: Patient does have a bit of dysplasia and arthritic changes in the right hip. She would like to try a cortisone injection first. Will get her scheduled for that at the local hospital. FOLLOW UP INSTRUCTIONS: See how things respond to an initial injection. Will continue to monitor patient for Chronic right hip pain Primary osteoarthritis of right hip (primary encounter diagnosis), patient to schedule visit as per follow up discussed. Ms. Michael Castro was advised as to contrast therapies and/or to take analgesics/anti-inflammatories as needed and all contraindications were reviewed. OBJECTIVE: Ms. Michael Castro is a pleasant 39 year old in no apparent distress. Gen:LMP 04/21/2022 nl development, obese, no deformities ENT: Normocephalic, normal hearing, moist mucosa CV: Pulses:Radial= 2+ and symmetric, capillary refill < 2 secs, no peripheral edema/varicosities Skin: no rash, bruising or lesions. Good turgor. Psych: cooperative and appropriate, alert and oriented x 3, good mood and affect. Musculoskeletal: Antalgia to the right. She has overall good range of motion but does have some pain with endrange of flexion and internal rotation of about 110 degrees and 25 degrees. IMAGING: Impression IMPRESSION: No acute osseous abnormality Director Of Partner Marketing: JACKIE Transcribe Date/Time: Dec 30 2024 1:52P Dictated by : LILIYA DENTON MD This examination was interpreted and the report reviewed and electronically signed by: LILIYA DENTON MD on Dec 30 2024 1:54PM EST Results-Findings * * *Final Report* * * DATE OF EXAM: Dec 28 2024 2:25PM WOX [id number] - XR HIP 3V PELV+ AP/LAT RT / PROCEDURE REASON: multiple diagnoses * * * * Physician Interpretation * * * * EXAMINATION: XR HIP 3V PELV+ AP/LAT RT CLINICAL HISTORY: Chronic right hip pain Technique: XR HIP 3V PELV+ AP/LAT RT -- RIGHT with 3 views on 3 images Comparison: X-ray pelvis 03/07/2014 RESULT: No acute fracture or dislocation. Mild right hip joint space narrowing with a superior acetabular osteophyte. Supporting Subjective Information Below: Past Medical History: PAST MEDICAL HISTORY Diagnosis Date Acute pain of both hips 03/01/2022 Cymbalta has helped. Anxiety with depression 06/25/2021 Arthritis of right hip 12/30/2024 X-ray 12/2024: mild Elevated hemoglobin A1c 07/26/2021 GERD without esophagitis 06/25/2021 Hip pain 07/11/2014 History of 2019 novel coronavirus disease (COVID-19) 11/01/2020 10/27/2020 Inflammatory polyarthropathy (HCC) 02/10/[address] Sandoval Iron deficiency anemia 10/24/2022 Low iron 01/23/2021 Muscle spasm 05/19/2013 MVP (mitral valve prolapse) 02/10/2014 On 2 D echo 01/2014 Pain in joint, ankle and foot 02/19/2012 Pseudotumor cerebri Right hip pain 06/25/2021 Saw Ortho (Dr. Brownlee) Told bone on bone. Routine gynecological examination Dr Doty Valvular heart disease 02/10/2014 2D echo 01/2014: 1+ MVI and TI Vitamin D deficiency 02/10/2014 Past Surgical History: PAST SURGICAL HISTORY Procedure Laterality Date 2D ECHO (EXEP) ' EF=60%, mild MVP, +1 MVI and TI DELIVERY ONLY , low cervical DELIVERY ONLY 07/07/2017 PAST SURGICAL HISTORY OF 08/2000 TENDON REPAIR RIGHT WRIST STRESS ECHO 02/13/2021 normal TONSILLECTOMY PRIMARY/SECONDARY <AGE 10 02/2014 Tonsillectomy Family History: FAMILY HISTORY Problem Relation Age of Onset Seizures Mother tonic-clonic, quiescent off medication No Known Problems Father Diabetes Maternal Grandfather Hypertension Maternal Grandfather Heart Maternal Grandfather had a difibulator Hypertension Paternal Grandmother other (Other) Paternal Grandmother No breast/hand bobbin cleaner cancer Aneurysm Paternal Grandfather other (cask gene mutation) Daughter Coronary Artery Disease No Family History Social History: Social History Tobacco Use Smoking status: Never Smokeless tobacco: Never Vaping Use Vaping status: Never Used Substance Use Topics Alcohol use: Yes Comment: Occasionally, not while Drug use: No Medications: Current Outpatient Medications Medication Sig acetaminophen (TYLENOL ARTHRITIS ORAL) Take 2 tablets by mouth two times a day as needed. meloxicam (MOBIC) 15 mg tablet Take 1 tablet by mouth once daily. No current facility-administered medications for this visit. Allergies: Diamox [Acetazolamide] ROS: General (negative for fatigue, malaise, weight loss/gain) HEENT (negative for headache, earache, recent vision changes, sinus pain, sore throat) Respiratory (no recent shortness of breath, hemoptysis) CV (negative for chest tightness, palpitations) Musculoskeletal (see HPI) Psych (no depression, anxiety) Erick Brownlee MD documented in this encounter [facility] 01-03-2025 Note HNO ID: [id number] Author: ERICK BROWNLEE MD Service: ? Author Type: Physician Type: Progress Notes Filed: 01/17/2025 12:57 Note Text: Erick Brownlee MD Department of Orthopaedics Orthopaedics [address] [facility] [address] Dept: [phone] Dept January 03, 2025 CHIEF COMPLAINT: New and Pain of the Right Hip (Referred by Dr Cruz /Last seen 07/11/14 Right ankle and hip pain) HPI Patient here for evaluation right hip pain. Patient states her pain is on the lateral aspect. Some days her hips are tight that she has difficulty sitting. 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 She does do a lot of heavy lifting at work. Her 16 year old daughter is a special needs child that weighs 88 pounds and has difficulty carrying her. Taking Mobic for the pain and feels helps her pain some. Feels it makes her pain duller. Has been getting monthly massages and feels those help as well. X-rays done on 12/28/24. ASSESSMENT: M16.11 Primary osteoarthritis of right hip (primary encounter diagnosis) M25.551, G89.29 Chronic right hip pain PLAN: Patient does have a bit of dysplasia and arthritic changes in the right hip. She would like to try a cortisone injection first. Will get her scheduled for that at the local hospital. FOLLOW UP INSTRUCTIONS: See how things respond to an initial injection. Will continue to monitor patient for Chronic right hip pain Primary osteoarthritis of right hip (primary encounter diagnosis), patient to schedule visit as per follow up discussed. Ms. Michael Castro was advised as to contrast therapies and/or to take analgesics/anti-inflammatories as needed and all contraindications were reviewed. OBJECTIVE: Ms. Michael Castro is a pleasant 39 year old in no apparent distress. Gen:LMP 04/21/2022 nl development, obese, no deformities ENT: Normocephalic, normal hearing, moist mucosa CV: Pulses:Radial= 2+ and symmetric, capillary refill < 2 secs, no peripheral edema/varicosities Skin: no rash, bruising or lesions. Good turgor. Psych: cooperative and appropriate, alert and oriented x 3, good mood and affect. Musculoskeletal: Antalgia to the right. She has overall good range of motion but does have some pain with endrange of flexion and internal rotation of about 110 degrees and 25 degrees. IMAGING: Impression IMPRESSION: No acute osseous abnormality Director Of Partner Marketing: [facility] Transcribe Date/Time: Dec 30 2024 1:52P Dictated by : LILIYA DENTON MD This examination was interpreted and the report reviewed and electronically signed by: LILIYA DENTON MD on Dec 30 2024 1:54PM EST Results-Findings * * *Final Report* * * DATE OF EXAM: Dec 28 2024 2:25PM WOX [id number] - XR HIP 3V PELV+ AP/LAT RT / PROCEDURE REASON: multiple diagnoses * * * * Physician Interpretation * * * * EXAMINATION: XR HIP 3V PELV+ AP/LAT RT CLINICAL HISTORY: Chronic right hip pain Technique: XR HIP 3V PELV+ AP/LAT RT -- RIGHT with 3 views on 3 images Comparison: X-ray pelvis 03/07/2014 RESULT: No acute fracture or dislocation. Mild right hip joint space narrowing with a superior acetabular osteophyte. Supporting Subjective Information Below: Past Medical History: PAST MEDICAL HISTORY Diagnosis Date Acute pain of both hips 03/01/2022 Cymbalta has helped. Anxiety with depression 06/25/2021 Arthritis of right hip 12/30/2024 X-ray 12/2024: mild Elevated hemoglobin A1c 07/26/2021 GERD without esophagitis 06/25/2021 Hip pain 07/11/2014 History of 2019 novel coronavirus disease (COVID-19) 11/01/2020 10/27/2020 Inflammatory polyarthropathy (HCC) 02/10/[address] Sandoval Iron deficiency anemia 10/24/2022 Low iron 01/23/2021 Muscle spasm 05/19/2013 MVP (mitral valve prolapse) 02/10/2014 On 2 D echo 01/2014 Pain in joint, ankle and foot 02/19/2012 Pseudotumor cerebri Right hip pain 06/25/2021 Saw Ortho (Dr. Brownlee) Told bone on bone. Routine gynecological examination Dr Doty Valvular heart disease 02/10/2014 2D echo 01/2014: 1+ MVI and TI Vitamin D deficiency 02/10/2014 Past Surgical History: PAST SURGICAL HISTORY Procedure Laterality Date 2D ECHO (EXEP) EF=60%, mild MVP, +1 MVI and TI DELIVERY ONLY , low cervical DELIVERY ONLY 07/07/2017 PAST SURGICAL HISTORY OF 08/2000 TENDON REPAIR RIGHT WRIST STRESS ECHO 02/13/2021 normal TONSILLECTOMY PRIMARY/SECONDARY Tonsillectomy Family History: FAMILY HISTORY Problem Relation Age of Onset Seizures Mother tonic-clonic, quiescent off medication No Known Problems Father Diabetes Maternal Grandfather Hypertension Maternal Grandfather Heart Maternal Grandfather had a difibulator Hypertension Paternal Grandmother other (Other) Paternal Grandmother No breast/hand bobbin cleaner cancer Aneurysm Paternal Grandfather other (cask gene mutation) Daughter Coronary Artery (more content not included)... [facility] 12-31-2024 Telephone encounter Note PATIENT NOTIFIED OF INFORMATION [facility] 12-31-2024 Miscellaneous Notes PATIENT NOTIFIED OF INFORMATION Left message for pt to contact office. Sarah Evans LPN Let patient know the hip x-ray shows mild arthritis. documented in this encounter [facility] 12-31-2024 Telephone encounter Note Left message for pt to contact office. Sarah Evans LPN [facility] 12-30-2024 Telephone encounter Note Let patient know the hip x-ray shows mild arthritis. [facility] 12-28-2024 History of Present illness Narrative Radiology Service Progress Note PATIENT NAME: Michael Castro DATE OF SERVICE: December 28, 2024 TIME: 2:17 PM PATIENT IDENTITY VERIFICATION COMPLETED USING TWO (2) IDENTIFIERS: Name and Date of confirmed by patient verbally. FALL SCREENING: Has the patient had 2 falls in the last year or 1 fall with injury or currently using an Ambulatory Assistive Device (Walker, Cane, Wheelchair, Crutches, etc.)? No PATIENT GENDER DATA: Assigned female at . status: : No status: NO. PATIENT RELEVANT IMPLANT DATA REVIEWED: Not Applicable PATIENT PRESENTS WITH AN IMPLANTABLE OR ATTACHED HVAC MECHANIC: No RADIOLOGY DEPARTMENT: General X-ray: Exam(s) Completed: Pelvis X-Ray: Pelvis with Hip Right PERIPHERAL IV DATA: Not applicable SIGNED BY: RT Kristy(R) December 28, 2024 2:17 PM documented in this encounter [facility] 12-28-2024 Note HNO ID: [id number] Author: SARA CANALES RT(Dana) Service: Radiology Author Type: Technologist Type: Progress Notes Filed: 12/28/2024 14:25 Note Text: Radiology Service Progress Note PATIENT NAME: Michael Castro DATE OF SERVICE: December 28, 2024 TIME: 2:17 PM PATIENT IDENTITY VERIFICATION COMPLETED USING TWO (2) IDENTIFIERS: Name and Date of confirmed by patient verbally. FALL SCREENING: Has the patient had 2 falls in the last year or 1 fall with injury or currently using an Ambulatory Assistive Device (Walker, Cane, Wheelchair, Crutches, etc.)? No PATIENT GENDER DATA: Assigned female at . status: : No status: NO. PATIENT RELEVANT IMPLANT DATA REVIEWED: Not Applicable PATIENT PRESENTS WITH AN IMPLANTABLE OR ATTACHED HVAC MECHANIC: No RADIOLOGY DEPARTMENT: General X-ray: Exam(s) Completed: Pelvis X-Ray: Pelvis with Hip Right PERIPHERAL IV DATA: Not applicable SIGNED BY: RT Kristy(R) December 28, 2024 2:17 PM [facility] 12-02-2024 History of Present illness Narrative Chief Complaint No chief complaint on file. HPI Micheal Castro is a 39 year old female who presents here today for patient requesting referral for ortho for hip. Which Hip? left Has been a constant issue since about 2013. She did see ortho and was told she may need a hip replacement at some time but advised to loose weight and to try to manage the pain with NSAID's for as long as possible and that was just over 10 years ago. Now she is to the point where the hip will lock up and has pain at 10/10 and it will bring tears to her eyes. She is also having episodes where it feels like the hip gives out and it's week and almost falls. Patient has not been seen in office since 2021. Needs physical scheduled. Past medical history, appointments, medications, allergies reviewed. Previous Medical History PAST MEDICAL HISTORY Diagnosis Date Acute pain of both hips 03/01/2022 Cymbalta has helped. Anxiety with depression 06/25/2021 Elevated hemoglobin A1c 07/26/2021 GERD without esophagitis 06/25/2021 Hip pain 07/11/2014 History of 2019 novel coronavirus disease (COVID-19) 11/01/2020 10/27/2020 Inflammatory polyarthropathy (HCC) 02/10/[address] Sandoval Iron deficiency anemia 10/24/2022 Low iron 01/23/2021 Muscle spasm 05/19/2013 MVP (mitral valve prolapse) 02/10/2014 On 2 D echo 01/2014 Pain in joint, ankle and foot 02/19/2012 Pseudotumor cerebri Right hip pain 06/25/2021 Saw Ortho (Dr. Brownlee) Told bone on bone. Routine gynecological examination Dr Doty Valvular heart disease 02/10/2014 2D echo 01/2014: 1+ MVI and TI Vitamin D deficiency 02/10/2014 Previous Surgical History PAST SURGICAL HISTORY Procedure Laterality Date 2D ECHO (EXEP) ' EF=60%, mild MVP, +1 MVI and TI DELIVERY ONLY , low cervical DELIVERY ONLY 07/07/2017 PAST SURGICAL HISTORY OF 08/2000 TENDON REPAIR RIGHT WRIST STRESS ECHO 02/13/2021 normal TONSILLECTOMY PRIMARY/SECONDARY <AGE 10 02/2014 Tonsillectomy Family History FAMILY HISTORY Problem Relation Age of Onset Seizures Mother tonic-clonic, quiescent off medication Diabetes Maternal Grandfather Hypertension Maternal Grandfather Heart Maternal Grandfather had a difibulator Hypertension Paternal Grandmother other (Other) Paternal Grandmother No breast/hand bobbin 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 acetaminophen (TYLENOL EXTRA STRENGTH) 500 mg tablet Take 2 tablets by mouth every 6 hours as needed (pain). FOR PAIN. ibuprofen (MOTRIN) 600 mg tablet Take 1 tablet by mouth every 6 hours as needed (pain). FOR PAIN. Cholecalciferol, Vitamin D3, 50 mcg (2,000 unit) cap Take 1 capsule by mouth once daily. Ferrous Sulfate (SLOW FE) 142 mg (45 mg iron) TbER Take 1 tablet by mouth once daily. No current facility-administered medications on file prior to visit. Social History Social History Tobacco Use Smoking status: Never Smokeless tobacco: Never Vaping Use Vaping status: Never Used Substance Use Topics Alcohol use: Yes Comment: Occasionally, not while Drug use: No Review of Symptoms REVIEW OF SYSTEMS See HPI EXAM: BP 136/80 Pulse 71 Ht 158.8 cm (5' 2.5) Wt 105.2 kg (232 lb) LMP 04/21/2022 (Exact Date) SpO2 98% BMI 41.76 kg/m General Appearance: Well appearing, alert, in no acute distress, well-hydrated, well nourished.. Musculoskeletal: right hip: has pain with palpation to the anterior hip joint and over the lateral greater trochanter. Has pain with flexion, extention, internal/external rotation and abduction of the hip. No crepitus. . Health Maintenance List Cervical Cancer Screening due on 02/24/2024 Influenza Vaccine(1) due on 07/25/2024 Covid-19 Vaccine( - 2023- season) due on 07/25/2024 Mammogram Screening due on 11/03/2025 DTaP,Tdap,Td Vaccine(2 - Td or Tdap) due on 06/05/2027 HIV Screening Completed HPV Vaccine Aged Out Hepatitis B Vaccine Discontinued Hepatitis C Screening Discontinued Data reviewed A/P ASSESSMENT/PLAN: 1. Chronic right hip pain - ICD9: 719.45, 338.29, ICD10: M25.551, G89.29 Check - XR HIP GENERAL 3V PELV/AP/LAT RIGHT - place on Mobic 15 mg a day. - CONSULT TO ORTHOPAEDICS: Dr. Brownlee who she has seen in the past. Requested Prescriptions Signed Prescriptions Disp Refills meloxicam (MOBIC) 15 mg tablet 30 tablet 6 Sig: Take 1 tablet by mouth once daily. F/u 2-3 months for WAE. Discussed importance of routine f/u Sanket Cruz MD documented in this encounter [facility] 12-02-2024 Note HNO ID: [id number] Author: SANKET CRUZ MD Service: ? Author Type: Physician Type: Progress Notes Filed: 12/02/2024 20:11 Note Text: Chief Complaint No chief complaint on file. HPI Michael Castro is a 39 year old female who presents here today for patient requesting referral for ortho for hip. Which Hip? left Has been a constant issue since about 2013. She did see ortho and was told she may need a hip replacement at some time but advised to loose weight and to try to manage the pain with NSAID's for as long as possible and that was just over 10 years ago. Now she is to the point where the hip will lock up and has pain at 10/10 and it will bring tears to her eyes. She is also having episodes where it feels like the hip gives out and it's week and almost falls. Patient has not been seen in office since 2021. Needs physical scheduled. Past medical history, appointments, medications, allergies reviewed. Previous Medical History PAST MEDICAL HISTORY Diagnosis Date Acute pain of both hips 03/01/2022 Cymbalta has helped. Anxiety with depression 06/25/2021 Elevated hemoglobin A1c 07/26/2021 GERD without esophagitis 06/25/2021 Hip pain 07/11/2014 History of 2019 novel coronavirus disease (COVID-19) 11/01/2020 10/27/2020 Inflammatory polyarthropathy (HCC) 02/10/[address] Sandoval Iron deficiency anemia 10/24/2022 Low iron 01/23/2021 Muscle spasm 05/19/2013 MVP (mitral valve prolapse) 02/10/2014 On 2 D echo 01/2014 Pain in joint, ankle and foot 02/19/2012 Pseudotumor cerebri Right hip pain 06/25/2021 Saw Ortho (Dr. Brownlee) Told bone on bone. Routine gynecological examination Dr Doty Valvular heart disease 02/10/2014 2D echo 01/2014: 1+ MVI and TI Vitamin D deficiency 02/10/2014 Previous Surgical History PAST SURGICAL HISTORY Procedure Laterality Date 2D ECHO (EXEP) EF=60%, mild MVP, +1 MVI and TI DELIVERY ONLY , low cervical DELIVERY ONLY 07/07/2017 PAST SURGICAL HISTORY OF 08/2000 TENDON REPAIR RIGHT WRIST STRESS ECHO 02/13/2021 normal TONSILLECTOMY PRIMARY/SECONDARY Tonsillectomy Family History FAMILY HISTORY Problem Relation Age of Onset Seizures Mother tonic-clonic, quiescent off medication Diabetes Maternal Grandfather Hypertension Maternal Grandfather Heart Maternal Grandfather had a difibulator Hypertension Paternal Grandmother other (Other) Paternal Grandmother No breast/hand bobbin 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 acetaminophen (TYLENOL EXTRA STRENGTH) 500 mg tablet Take 2 tablets by mouth every 6 hours as needed (pain). FOR PAIN. ibuprofen (MOTRIN) 600 mg tablet Take 1 tablet by mouth every 6 hours as needed (pain). FOR PAIN. Cholecalciferol, Vitamin D3, 50 mcg (2,000 unit) cap Take 1 capsule by mouth once daily. Ferrous Sulfate (SLOW FE) 142 mg (45 mg iron) TbER Take 1 tablet by mouth once daily. No current facility-administered medications on file prior to visit. Social History Social History Tobacco Use Smoking status: Never Smokeless tobacco: Never Vaping Use Vaping status: Never Used Substance Use Topics Alcohol use: Yes Comment: Occasionally, not while Drug use: No Review of Symptoms REVIEW OF SYSTEMS See HPI EXAM: BP 136/80 Pulse 71 Ht 158.8 cm (5' 2.5) Wt 105.2 kg (232 lb) LMP 04/21/2022 (Exact Date) SpO2 98% BMI 41.76 kg/m? General Appearance: Well appearing, alert, in no acute distress, well-hydrated, well nourished.. Musculoskeletal: right hip: has pain with palpation to the anterior hip joint and over the lateral greater trochanter. Has pain with flexion, extention, internal/external rotation and abduction of the hip. No crepitus. . Health Maintenance List Cervical Cancer Screening due on 02/24/2024 Influenza Vaccine(1) due on 07/25/2024 Covid-19 Vaccine(2023- season) due on 07/25/2024 Mammogram Screening due on 11/03/2025 DTaP,Tdap,Td Vaccine(2 - Td or Tdap) due on 06/05/2027 HIV Screening Completed HPV Vaccine Aged Out Hepatitis B Vaccine Discontinued Hepatitis C Screening Discontinued Data reviewed A/P ASSESSMENT/PLAN: 1. Chronic right hip pain - ICD9: 719.45, 338.29, ICD10: M25.551, G89.29 Check - XR HIP GENERAL 3V PELV/AP/LAT RIGHT - place on Mobic 15 mg a day. - CONSULT TO ORTHOPAEDICS: Dr. Brownlee who she has seen in the past. Requested Prescriptions Signed Prescriptions Disp Refills meloxicam (MOBIC) 15 mg tablet 30 tablet 6 Sig: Take 1 tablet by mouth once daily. F/u 2-3 months for WAE. Discussed importance o (more content not included)... [facility] 11-04-2024 Telephone encounter Note Pt notified and verbalized understanding Scott Patterson MA [facility] 11-04-2024 Miscellaneous Notes Pt notified and verbalized understanding Scott Patterson MA Please let patient know her mammogram shows a stable cyst. 6 month follow up recommended. I have placed order for patient to schedule. documented in this encounter [facility] 11-04-2024 Telephone encounter Note Please let patient know her mammogram shows a stable cyst. 6 month follow up recommended. I have placed order for patient to schedule. [facility] 11-03-2024 Note HNO ID: [id number] Author: QI LAWSON RDMS Service: ? Author Type: Cellophane Bath Mixer Type: Progress Notes Filed: 11/03/2024 10:09 Note Text: Radiology Service Progress Note PATIENT NAME: Michael Castro DATE OF SERVICE: November 03, 2024 TIME: 10:09 AM PATIENT IDENTITY VERIFICATION COMPLETED USING TWO (2) IDENTIFIERS: Name and Date of confirmed by patient verbally. FALL SCREENING: Has the patient had 2 falls in the last year or 1 fall with injury or currently using an Ambulatory Assistive Device (Walker, Cane, Wheelchair, Crutches, etc.)? No PATIENT GENDER DATA: Female. status: : No status: NO. PATIENT RELEVANT IMPLANT DATA REVIEWED: Not Applicable PATIENT PRESENTS WITH AN IMPLANTABLE OR ATTACHED HVAC MECHANIC: No RADIOLOGY DEPARTMENT: Ultrasound PERIPHERAL IV DATA: Not applicable SIGNED BY: Qi Lawson RDMS November 03, 2024 10:09 AM [facility] 11-03-2024 Note HNO ID: [id number] Author: TANYA HERRERA RT(R) Service: ? Author Type: Technologist Type: Progress Notes Filed: 11/03/2024 08:23 Note Text: Radiology Service Progress Note PATIENT NAME: Michael Castro DATE OF SERVICE: November 03, 2024 TIME: 8:23 AM PATIENT IDENTITY VERIFICATION COMPLETED USING TWO (2) IDENTIFIERS: Name and Date of confirmed by patient verbally. FALL SCREENING: Has the patient had 2 falls in the last year or 1 fall with injury or currently using an Ambulatory Assistive Device (Walker, Cane, Wheelchair, Crutches, etc.)? No PATIENT GENDER DATA: Female. status: : No status: NO. PATIENT RELEVANT IMPLANT DATA REVIEWED: Not Applicable PATIENT PRESENTS WITH AN IMPLANTABLE OR ATTACHED HVAC MECHANIC: No RADIOLOGY DEPARTMENT: Mammography PERIPHERAL IV DATA: Not applicable SIGNED BY: RT Karely(R) November 03, 2024 8:23 AM [facility] 10-20-2024 Note HNO ID: [id number] Author: CHAPO SHORE MD Service: ? Author Type: Physician Type: Progress Notes Filed: 10/20/2024 14:20 Note Text: Patient presents with: Ear Pain: right x 1 week, fever x 2 days HPI: Feeling right ear pain for 1 week. Fever up to 101 today. Positive symptoms: Right Earache, pain radiates to the right neck, Fever, Negative symptoms: Cough, Sore throat, Nasal Congestion, Rhinorrhea, hearing change, otorrhea, dental pain OTC: Tylenol MEDICATIONS: Current Outpatient Medications Medication Sig DULoxetine (CYMBALTA) 30 mg capsule Take 1 capsule by mouth once daily. acetaminophen (TYLENOL EXTRA STRENGTH) 500 mg tablet Take 2 tablets by mouth every 6 hours as needed (pain). FOR PAIN. ibuprofen (MOTRIN) 600 mg tablet Take 1 tablet by mouth every 6 hours as needed (pain). FOR PAIN. Cholecalciferol, Vitamin D3, 50 mcg (2,000 unit) cap Take 1 capsule by mouth once daily. Ferrous Sulfate (SLOW FE) 142 mg (45 mg iron) TbER Take 1 tablet by mouth once daily. No current facility-administered medications for this visit. ALLERGIES: ALLERGIES Allergen Reactions Diamox [Acetazolami* Other: See Comments Numbness in hands and feet VITALS: BP 122/80 Pulse 78 Temp 36.6 ?C (97.9 ?F) Resp 16 Wt 108.5 kg (239 lb 3.2 oz) LMP 04/21/2022 (Exact Date) SpO2 100% BMI 43.40 kg/m? PHYSICAL EXAM: GEN: Pleasant, in no acute distress. HEENT: PERRL, EOMI, conjunctiva clear Ears: canals clear. TMs without erythema, bulge, or effusion. TMJs non-tender to palpation. Sinuses: non-tender frontal sinus, non-tender maxillary sinuses Throat: moist mucous membranes, mild erythema, no exudate Neck: supple, no thyromegaly, no lymphadenopathy HEART: regular rate and rhythm, no murmurs LUNGS: clear to auscultation, no wheezes or crackles, no increased WOB ASSESSMENT/PLAN: 1. Otalgia, right ear - ICD9: 388.70, ICD10: H92.01 (primary diagnosis) 2. Fever, unspecified fever cause - ICD9: 780.60, ICD10: R50.9 - STREP A MOLECULAR (POC) - negative. Unclear source of otalgia. Exam is benign. Consider dentist evaluation if pain persists. Continue supportive care with ibuprofen, acetaminophen, and heat. No obvious source for fever. Monitor for additional symptoms. Chapo Shore MD [facility] 10-20-2024 History of Present illness Narrative Patient presents with: Ear Pain: right x 1 week, fever x 2 days HPI: Feeling right ear pain for 1 week. Fever up to 101 today. Positive symptoms: Right Earache, pain radiates to the right neck, Fever, Negative symptoms: Cough, Sore throat, Nasal Congestion, Rhinorrhea, hearing change, otorrhea, dental pain OTC: Tylenol MEDICATIONS: Current Outpatient Medications Medication Sig DULoxetine (CYMBALTA) 30 mg capsule Take 1 capsule by mouth once daily. acetaminophen (TYLENOL EXTRA STRENGTH) 500 mg tablet Take 2 tablets by mouth every 6 hours as needed (pain). FOR PAIN. ibuprofen (MOTRIN) 600 mg tablet Take 1 tablet by mouth every 6 hours as needed (pain). FOR PAIN. Cholecalciferol, Vitamin D3, 50 mcg (2,000 unit) cap Take 1 capsule by mouth once daily. Ferrous Sulfate (SLOW FE) 142 mg (45 mg iron) TbER Take 1 tablet by mouth once daily. No current facility-administered medications for this visit. ALLERGIES: ALLERGIES Allergen Reactions Diamox [Acetazolami* Other: See Comments Numbness in hands and feet VITALS: BP 122/80 Pulse 78 Temp 36.6 C (97.9 F) Resp 16 Wt 108.5 kg (239 lb 3.2 oz) LMP 04/21/2022 (Exact Date) SpO2 100% BMI 43.40 kg/m PHYSICAL EXAM: GEN: Pleasant, in no acute distress. HEENT: PERRL, EOMI, conjunctiva clear Ears: canals clear. TMs without erythema, bulge, or effusion. TMJs non-tender to palpation. Sinuses: non-tender frontal sinus, non-tender maxillary sinuses Throat: moist mucous membranes, mild erythema, no exudate Neck: supple, no thyromegaly, no lymphadenopathy HEART: regular rate and rhythm, no murmurs LUNGS: clear to auscultation, no wheezes or crackles, no increased WOB ASSESSMENT/PLAN: 1. Otalgia, right ear - ICD9: 388.70, ICD10: H92.01 (primary diagnosis) 2. Fever, unspecified fever cause - ICD9: 780.60, ICD10: R50.9 - STREP A MOLECULAR (POC) - negative. Unclear source of otalgia. Exam is benign. Consider dentist evaluation if pain persists. Continue supportive care with ibuprofen, acetaminophen, and heat. No obvious source for fever. Monitor for additional symptoms. Chapo Shore MD documented in this encounter [facility] 04-13-2024 Telephone encounter Note Phoned patient and updated her on results and recommendations. Patient voiced understanding. [facility] 04-13-2024 Miscellaneous Notes Phoned patient and updated her on results and recommendations. Patient voiced understanding. Please let patient know her mammogram is negative for malignancy, but does show cyst as identified in previous mammograms. It is recommended patient have mammogram and US in 6 months. documented in this encounter [facility] 04-13-2024 Telephone encounter Note Please let patient know her mammogram is negative for malignancy, but does show cyst as identified in previous mammograms. It is recommended patient have mammogram and US in 6 months. [facility] 04-13-2024 History of Present illness Narrative Radiology Service Progress Note PATIENT NAME: Michael Castro DATE OF SERVICE: April 13, 2024 TIME: 2:15 PM PATIENT IDENTITY VERIFICATION COMPLETED USING TWO (2) IDENTIFIERS: Name and Date of confirmed by patient verbally. FALL SCREENING: Has the patient had 2 falls in the last year or 1 fall with injury or currently using an Ambulatory Assistive Device (Walker, Cane, Wheelchair, Crutches, etc.)? No PATIENT GENDER DATA: Female. status: : No status: NO. PATIENT RELEVANT IMPLANT DATA REVIEWED: Not Applicable PATIENT PRESENTS WITH AN IMPLANTABLE OR ATTACHED HVAC MECHANIC: No RADIOLOGY DEPARTMENT: Ultrasound PERIPHERAL IV DATA: Not applicable SIGNED BY: Jeana Cochran RDMS RVT April 13, 2024 2:15 PM documented in this encounter [facility] 04-13-2024 History of Present illness Narrative Radiology Service Progress Note PATIENT NAME: Michael Castro DATE OF SERVICE: April 13, 2024 TIME: 8:31 AM PATIENT IDENTITY VERIFICATION COMPLETED USING TWO (2) IDENTIFIERS: Name and Date of confirmed by patient verbally. FALL SCREENING: Has the patient had 2 falls in the last year or 1 fall with injury or currently using an Ambulatory Assistive Device (Walker, Cane, Wheelchair, Crutches, etc.)? No PATIENT GENDER DATA: Female. status: : No status: NO. PATIENT RELEVANT IMPLANT DATA REVIEWED: Not Applicable PATIENT PRESENTS WITH AN IMPLANTABLE OR ATTACHED HVAC MECHANIC: No RADIOLOGY DEPARTMENT: Mammography PERIPHERAL IV DATA: Not applicable SIGNED BY: Ginny Tijerina [email or web address] April 13, 2024 8:31 AM documented in this encounter [facility] 10-09-2023 Miscellaneous Notes Pt returned call and notified that orders are placed to repeat mammo/ultrasound in 6 months. Given phone # to call and schedule. TC to pt. LM to call office, ask for triage nurse to get results. Lennie Lr LPN Let patient know I apologies. I did not see the amendment. So thank her for pointing this out. I have placed orders o poncho a repeat mammogram and US in 6 months of the left breast. Pt notified of same. States after she got home she got a call from the [facility] advising that the radiologist had changed his mind and was wanting to recheck again in 6 months. He was going to put an addendum in so Dr Cruz could place orders. Advised pt she would be contacted once Dr Cruz reviews this. Sarah Evans LPN Let patient know the additional images of the left breast showed a benign breast tissue. Can return to normal yearly Mammos. documented in this encounter [facility] 10-08-2023 History of Present illness Narrative Radiology Service Progress Note PATIENT NAME: Michael Castro DATE OF SERVICE: October 08, 2023 TIME: 9:55 AM PATIENT IDENTITY VERIFICATION COMPLETED USING TWO (2) IDENTIFIERS: Name and Date of confirmed by patient verbally. FALL SCREENING: Has the patient had 2 falls in the last year or 1 fall with injury or currently using an Ambulatory Assistive Device (Walker, Cane, Wheelchair, Crutches, etc.)? No PATIENT GENDER DATA: Female. status: : No status: NO. PATIENT RELEVANT IMPLANT DATA REVIEWED: Not Applicable RADIOLOGY DEPARTMENT: Ultrasound PERIPHERAL IV DATA: Not applicable SIGNED BY: Qi Lawson RDMS October 08, 2023 9:55 AM documented in this encounter [facility] 10-08-2023 History of Present illness Narrative Radiology Service Progress Note PATIENT NAME: Michael Castro DATE OF SERVICE: October 08, 2023 TIME: 8:57 AM PATIENT IDENTITY VERIFICATION COMPLETED USING TWO (2) IDENTIFIERS: Name and Date of confirmed by patient verbally. FALL SCREENING: Has the patient had 2 falls in the last year or 1 fall with injury or currently using an Ambulatory Assistive Device (Walker, Cane, Wheelchair, Crutches, etc.)? No PATIENT GENDER DATA: Female. status: : No status: NO. PATIENT RELEVANT IMPLANT DATA REVIEWED: Not Applicable RADIOLOGY DEPARTMENT: Mammography PERIPHERAL IV DATA: Not applicable SIGNED BY: RT Karely(Dana) October 08, 2023 8:57 AM documented in this encounter [facility] 09-16-2023 Miscellaneous Notes Pt called and is notified of providers results and instructions. Pt voices understanding. Transferred to scheduled to set up appt for L breast US and diagnostic. Yady Quezada, RN Let patient know mammogram shows an asymmetry in the left breast and needs additional testing. Orders placed. documented in this encounter [facility] 09-16-2023 Miscellaneous Notes September 16, 2023 PID: [id number] Michael Castro [address] [place] [address] Dear Ms. Castro, Your recent breast imaging exam on 09/15/2023 showed a possible finding that requires additional imaging studies for a complete evaluation. Most such findings are probably benign (not cancer). Your mammogram demonstrates that you have dense breast tissue, which could hide abnormalities. Dense breast tissue, in and of itself, is a relatively common condition. Therefore, this information is not provided to cause undue concern; rather, it is to raise your awareness and promote discussion with your health care provider regarding the presence of dense breast tissue in addition to other risk factors. If you have a healthcare provider who ordered/prescribed your screening mammogram: Please call [phone] or [phone]: [phone] to schedule an appointment for your additional imaging (if you have not already done so). If you DO NOT have a healthcare provider (ie you did not have an order/prescription for your screening mammogram): Please call to schedule an appointment for your additional imaging (if you have not already done so). You must have an order/prescription from your physician when calling to schedule your appointment. If your order/prescription is not electronic, you must bring the hard copy with you on the day of your exam to avoid delays. Your imaging studies and reports are kept on file at [facility] as part of your permanent medical record, and are available for your continuing care. Thank you for allowing us to help in meeting your health care needs. Sincerely, Dr. Dangelo Interpreting Radiologist [facility] (Additional imaging) documented in this encounter [facility] 09-15-2023 History of Present illness Narrative Radiology Service Progress Note PATIENT NAME: Michael Castro DATE OF SERVICE: September 15, 2023 TIME: 2:23 PM PATIENT IDENTITY VERIFICATION COMPLETED USING TWO (2) IDENTIFIERS: Name and Date of confirmed by patient verbally. FALL SCREENING: Has the patient had 2 falls in the last year or 1 fall with injury or currently using an Ambulatory Assistive Device (Walker, Cane, Wheelchair, Crutches, etc.)? No PATIENT GENDER DATA: Female. status: : No status: NO. PATIENT RELEVANT IMPLANT DATA REVIEWED: Not Applicable RADIOLOGY DEPARTMENT: Mammography PERIPHERAL IV DATA: Not applicable SIGNED BY: Nicol TracyMuut Mahnaz September 15, 2023 2:23 PM documented in this encounter [facility] 11-19-2022 Miscellaneous Notes Pharmacy escripts requesting the following refill: Requested Prescriptions Pending Prescriptions Disp Refills topiramate (TOPAMAX) 25 mg tablet [Pharmacy Med Name: TOPIRAMATE 25 MG TABLET] 60 tablet 2 Sig: TAKE 1 TABLET BY MOUTH TWICE DAILY. START TOPAMAX AFTER STOPPING ZONEGRAN. Please review. JONES: 08/15/2022 NOV: None. Hollie Chamberlain CMA documented in this encounter [facility] 11-08-2022 Miscellaneous Notes Patient was notified Aliza Peoples Ma Let patient know I sent two ea drops to the pharmacy. Would not repeat the oral antibiotic at this time. The following approved medication requests have been transmitted electronically. Requested Prescriptions Signed Prescriptions Disp Refills ciprofloxacin HCl (CILOXAN) 0.3 % ophthalmic solution 10 mL 0 Si drops to affected ear twice a day for 7 days prednisoLONE acetate (PRED FORTE) 1 % ophthalmic suspension 10 mL 0 Si drops to affected ear three times a day. For 7 days Sanket Cruz MD documented in this encounter [facility] 10-24-2022 Instructions Sanket Cruz MD - 10/24/2022 11:15 AM EST Please get iron labs drawn on or after 11/24/2022. Do not need to fast. Start taking your Iron every other day. Please get labs done on or after 04/11/2023 prior to your next visit. documented in this encounter [facility] 10-24-2022 History of Present illness Narrative Chief Complaint Patient presents with: Physical HPI Michael Castro is a 37 year old female who presents here today for Physical. Patient with hx of pseudotumor cerebri, MPV, inflammatory polyarthropathy (used to see Dr. Richardson), low Iron, elevated A1c, anxiety with Depression, GERD, low iron, morbid obesity, Vit D def as well as those reviewed and addressed below and in ROS. Patient has been doing well on current dose of the cymbalta just tired after taking it. Patient just had COVID again for the third time back in August. Continues to have right ear pain. Past medical history, appointments, medications, allergies reviewed. Previous Medical History PAST MEDICAL HISTORY Diagnosis Date Acute pain of both hips 03/01/2022 Cymbalta has helped. Anxiety with depression 06/25/2021 Elevated hemoglobin A1c 07/26/2021 GERD without esophagitis 06/25/2021 Hip pain 07/11/2014 History of 2019 novel coronavirus disease (COVID-19) 11/01/2020 10/27/2020 Inflammatory polyarthropathy (HCC) 02/10/[address] Sandoval Low iron 01/23/2021 Muscle spasm 05/19/2013 MVP (mitral valve prolapse) 02/10/2014 On 2 D echo 01/2014 Pain in joint, ankle and foot 02/19/2012 Pseudotumor cerebri Right hip pain 06/25/2021 Saw Ortho (Dr. Brownlee) Told bone on bone. Routine gynecological examination Dr Doty Valvular heart disease 02/10/2014 2D echo 01/2014: 1+ MVI and TI Vitamin D deficiency 02/10/2014 Previous Surgical History PAST SURGICAL HISTORY Procedure Laterality Date 2D ECHO (EXEP) EF=60%, mild MVP, +1 MVI and TI DELIVERY ONLY , low cervical DELIVERY ONLY 07/07/2017 PAST SURGICAL HISTORY OF 08/2000 TENDON REPAIR RIGHT WRIST STRESS ECHO 02/13/2021 normal TONSILLECTOMY PRIMARY/SECONDARY <AGE 12 02/2014 Tonsillectomy Family History FAMILY HISTORY Problem Relation Age of Onset Seizures Mother tonic-clonic, quiescent off medication Diabetes Maternal Grandfather Hypertension Maternal Grandfather Heart Maternal Grandfather had a difibulator Hypertension Paternal Grandmother other (Other) Paternal Grandmother No breast/hand bobbin cleaner cancer Aneurysm Paternal Grandfather other (cask gene mutation) Daughter Coronary Artery Disease No Family History Patient Allergies ALLERGIES Allergen Reactions Diamox [Acetazolami* Other: See Comments Numbness in hands and feet Current Medications Current Outpatient Medications on File Prior to Visit Medication Sig zonisamide (ZONEGRAN) 25 mg capsule Take 1 capsule by mouth once daily for 10 days. topiramate (TOPAMAX) 25 mg tablet Take 1 tablet by mouth twice daily. Start Topamax after stopping Zonegran. methylPREDNISolone (MEDROL, SHEILA,) 4 mg Dose-Pack Take as directed on package. DULoxetine (CYMBALTA) 30 mg capsule Take 1 capsule by mouth once daily. acetaminophen (TYLENOL EXTRA STRENGTH) 500 mg tablet Take 2 tablets by mouth every 6 hours as needed (pain). FOR PAIN. ibuprofen (MOTRIN) 600 mg tablet Take 1 tablet by mouth every 6 hours as needed (pain). FOR PAIN. Cholecalciferol, Vitamin D3, 50 mcg (2,000 unit) cap Take 1 capsule by mouth once daily. omeprazole (PRILOSEC) 20 mg capsule Take 1 capsule by mouth daily before breakfast. 1/2 hr before meal. (Patient not taking: No sig reported) Ferrous Sulfate (SLOW FE) 142 mg (45 mg iron) TbER Take 1 tablet by mouth once daily. No current facility-administered medications on file prior to visit. Social History Social History Tobacco Use Smoking status: Never Smokeless tobacco: Never Vaping Use Vaping Use: Never used Substance Use Topics Alcohol use: Yes Comment: Occasionally, not while Drug use: No Review of Symptoms REVIEW OF SYSTEMS GENERAL: No weight loss, malaise or fevers HEENT: Negative for frequent or significant headaches, No changes in hearing or vision, no nose bleeds or other nasal problems. The right ear has still been painful since having COVID. NECK: Negative for lumps, goiter, pain and significant neck swelling RESPIRATORY: Negative for cough, hemoptysis, wheezing, COPD, dyspnea or shortness of breath CARDIOVASCULAR: Negative for chest pain, leg swelling, hypertension, CHF or palpitations GI: No nausea, vomiting, or diarrhea and No heartburn or reflux symptoms : No history of dysuria, blood MUSCULOSKELETAL: hips have been better over all. SKIN: Negative for lesions, rash, and itching PSYCH: Negative for sleep disturbance, mood disorder and recent psychosocial stressors. See HPI HEMATOLOGY/LYMPHOLOGY: Negative for prolonged bleeding, bruising easily or swollen nodes ENDOCRINE: Negative for cold or heat intolerance, polyuria, polydipsia and goiter NEURO: No history of headaches, syncope, paralysis, seizures or tremors EXAM: BP 118/86 (BP Site: Right Arm, BP Position: Sitting, BP Cuff Size: Large Adult) Pulse 70 Resp 16 Ht 158.1 cm (5' 2.25) Wt 119.3 kg (263 lb) LMP 04/21/2022 (Exact Date) BMI 47.72 kg/m Last 5 Encounter Wt Readings: Date: Wt: 10/24/2022 119.3 kg (263 lb) 09/23/2022 119.3 kg (263 lb) 04/29/2022 120.7 kg (266 lb) 03/01/2022 120.7 kg (266 lb) 02/14/2022 121.1 kg (267 lb) General Appearance: Well appearing, alert, in no acute distress, well-hydrated, well nourished. and Morbidly obese. Skin: Skin color, texture, turgor normal, no suspicious rashes or lesions. Head: Normocephalic, no masses, lesions, tenderness or abnormalities. Eyes: Anicteric sclera. Pupils are equally round and reactive to light. Extraocular movements are intact. . Ears: the left ear, canal and TM were normal. The right canal was tender on exam and with pulling on the helix. The TM was opaque with slightly decreased light reflex compared to the left. TM not erythematous. . Neck: Supple, no adenopathy; thyroid symmetric, normal size, no bruits. Lungs: Lungs clear to auscultation. No wheezing, rhonchi, rales.. Heart: RRR without murmur, gallop, or rubs. No ectopy. Abdomen: Normal abdominal exam, Abdomen soft, non-tender. Bowel sounds normal. No masses, organomegaly. Extremities: No deformities, edema, skin discoloration, Good capillary refill. . Musculoskeletal: Muscular strength intact, No joint swelling, deformity, or tenderness. Peripheral Pulses: Normal. Neurologic: Gait normal. Reflexes normal and symmetric. Sensation to light touch and crainal nerves 2-12 intact.. Health Maintenance List HEPATITIS B(1 of 3 - 3-dose series) Never done COVID-19 VACCINE(3 - Booster for Pfizer series) due on 06/01/2021 INFLUENZA(1) due on 07/25/2022 PAP TESTING due on 02/24/2024 HPV TESTING due on 02/24/2024 DTAP,TDAP,TD(2 - Td or Tdap) due on 06/05/2027 HIV SCREENING Completed HEPATITIS C SCREENING Discontinued Data reviewed Component Latest Ref Rng & Units 09/25/2021 03/01/2022 10/22/2022 WBC 3.70 - 11.00 k/uL 8.19 13.05 (H) RBC 3.90 - 5.20 m/uL 4.89 4.28 Hemoglobin 11.5 - 15.5 g/dL 12.6 11.5 Hematocrit 36.0 - 46.0 % 41.9 36.5 MCV 80.0 - 100.0 fL 85.7 85.3 MCH 26.0 - 34.0 pg 25.8 (L) 26.9 MCHC 30.5 - 36.0 g/dL 30.1 (L) 31.5 RDW-CV 11.5 - 15.0 % 16.5 (H) 14.5 Platelet Count 150 - 400 k/uL 431 (H) 484 (H) MPV 9.0 - 12.7 fL 11.2 10.2 Neut% % 55.4 53.1 Abs Neut (ANC) 1.45 - 7.50 k/uL 4.54 6.94 Lymph% % 36.8 38.8 Abs Lymph 1.00 - 4.00 k/uL 3.01 5.06 (H) [place]% % 5.1 5.4 Abs [place] <0.87 k/uL 0.42 0.71 Eosin% % 2.3 1.5 Abs Eosin <0.46 k/uL 0.19 0.19 Baso% % 0.4 0.8 Abs Baso <0.11 k/uL 0.03 0.10 Immature Gran % % 0.4 IMMATURE GRANS (ABS) <0.10 k/uL 0.05 NRBC /100 WBC 0.0 Absolute nRBC <0.01 k/uL <0.01 <0.01 DTYPE Auto Nucleated Reds 0 /100 WBC 0.0 Diff Type Auto Diff Protein, Total 6.3 - 8.0 g/dL 7.3 Albumin 3.9 - 4.9 g/dL 4.3 Calcium 8.5 - 10.2 mg/dL 9.1 Bilirubin, Total 0.2 - 1.3 mg/dL 0.3 Alkaline Phosphatase 34 - 123 U/L 69 AST 13 - 35 U/L 22 ALT 7 - 38 U/L 22 Glucose 74 - 99 mg/dL 67 (L) BUN 7 - 21 mg/dL 11 Creatinine 0.58 - 0.96 mg/dL 0.65 Sodium 136 - 144 mmol/L 139 Potassium 3.7 - 5.1 mmol/L 4.1 Chloride 97 - 105 mmol/L 100 CO2 22 - 30 mmol/L 24 Anion Gap 9 - 18 mmol/L 15 eGFR >=60 mL/min/1.73m 115 Total Cholesterol, Nonfasting <200 mg/dL 193 Triglycerides, Nonfasting <150 mg/dL 104 HDL Cholesterol, Nonfasting >39 mg/dL 53 LDL Cholesterol, Nonfasting <100 mg/dL 119 (H) Non HDL Cholesterol, Nonfasting <130 mg/dL 140 (H) VLDL Cholesterol, Nonfasting <30 mg/dL 21 Total Chol/HDL Ratio, Nonfasting <5.10 mg/dL 3.64 LDL/HDL Ratio, Nonfasting <2.54 mg/dL 2.25 Iron 41 - 186 ug/dL 87 31 (L) TIBC 232 - 386 ug/dL 390 (H) 398 (H) Transferrin Saturation 15.0 - 57.0 % 22 7.8 (L) Hemoglobin A1C 4.3 - 5.6 % 5.8 (H) 5.7 (H) Estimated Average Glucose mg/dL 120 117 Vitamin D 25 Hydroxy 31.0 - 80.0 ng/mL 38.0 40.3 TSH 0.270 - 4.200 mIU/L 1.650 Magnesium 1.7 - 2.3 mg/dL 1.9 A/P ASSESSMENT/PLAN: 1. Well adult exam - ICD9: V70.0, ICD10: Z00.00 (primary diagnosis) - Counseled on healthy diet and regular exercise - Calcium intake with supplements or by diet of 1000 mg/day for under 50, 8354-7782 mg/day for 50+ - Follow up for annual exam in one year 2. Anxiety with depression - ICD9: 300.4, ICD10: F41.8 Cont - DULOXETINE 30 MG CAPSULE,DELAYED RELEASE (advised trying to take at night to see if fatigue reduces). 3. GERD without esophagitis - ICD9: 530.81, ICD10: K21.9 - controlled with diet. 4. Elevated hemoglobin A1c - ICD9: 790.29, ICD10: R73.09 - improved. Patient to cont work on life style changes. 5. Inflammatory polyarthropathy (HCC) - ICD9: 714.9, ICD10: M06.4 - stable 6. Pseudotumor cerebri - ICD9: 348.2, ICD10: G93.2 - management per neuro 7. MVP (mitral valve prolapse) - ICD9: 424.0, ICD10: I34.1 - no active issues 8. Acute otitis externa of right ear, unspecified type - ICD9: 380.10, ICD10: H60.501 New - will treat with cortisporin Otic 9. Acute otitis media, right - ICD9: 382.9, ICD10: H66.91 New - will Tx with Duricef 500 mg twice ad ay for 7 days 10. Iron deficiency anemia, unspecified iron deficiency anemia type - ICD9: 280.9, ICD10: D50.9 - advised patient to change her Iron to one every other day along with her Vit C. Will recheck Iron levels in a month. The following approved medication requests have been transmitted electronically. Requested Prescriptions Signed Prescriptions Disp Refills DULoxetine (CYMBALTA) 30 mg capsule 90 capsule 1 Sig: Take 1 capsule by mouth once daily. cefADROxil (DURICEF) 500 mg capsule 14 capsule 0 Sig: Take 1 capsule by mouth twice daily for 7 days. Cqstsurn-Tnewxw-DP-Thonzonium (CORTISPORIN-TC) otic suspension 10 mL 0 Sig: Use 3 Drops in the right ear three times daily for 7 days. (Disp 1 bottle) F/u routine 6 month routine check A1c, CBC and Iron prior Sanket Cruz MD documented in this encounter [facility] 09-09-2022 Miscellaneous Notes Still has refills available. Last office visit: 08/15/22 Next appointment scheduled: No future appointments scheduled at this time. Last labs: 03/01/22 Assessment/Plan: R51.9, G89.29 Chronic intractable headache, unspecified headache type (primary encounter diagnosis) G93.2 Pseudotumor cerebri G47.39 Sleep apnea-like behavior Comment: Patient previously seen for history of pseudotumor and headaches with resolution of symptoms in 2016 but recurrence after COVID infection in 2019. MRI/V of brain completed in interim to evaluate further for etiology of headaches (pseudotumor, intracranial lesion, sinus thrombosis). Results suggestive of intracranial hypertension. HSAT also ordered (as untreated SARAN may exacerbate migraines and ICP) and pt reports completion of testing, however, results not available in chart. Will determine why results not available. At time of last appointment she was started on Zonegran 50mg with titration up to 100mg. However, as symptoms persisted she ultimately underwent LP. Following LP she reports significant improvement of headaches and now only occurring two days per week to less severe degree. She does report that upon increasing Zonegran to 100mg she experienced worsening of SE and had to decrease back down to 50mg dose. Today she still notes SE even with 50mg dose and would prefer to trial alternative medication. On further discussion she reports that Topamax managed symptoms in the past upon initial diagnosis and she tolerated medication well without SE. Reports medication was discontinued due to and was not restarted after. After discussion she would like to transition from Zonegran to Topamax. On review of chart appears she was taking 50mg Topamax BID in past. Will transition and titrate up slowly to 50mg BID. If at any time headaches worsen she is aware she is to notify office. Tanya Vernon APRN.[employer] Pharmacy escripts requesting the following refill: Requested Prescriptions Pending Prescriptions Disp Refills topiramate (TOPAMAX) 25 mg tablet [Pharmacy Med Name: TOPIRAMATE 25 MG TABLET] 60 tablet 2 Sig: TAKE 1 TABLET BY MOUTH TWICE DAILY. START TOPAMAX AFTER STOPPING ZONEGRAN. JONES: 08/15/2022 NOV: None Please review. Hollie Chamberlain CMA documented in this encounter [facility] 08-15-2022 History of Present illness Narrative Images from the original note were not included. [facility] Neurologic [place] Follow-up Virtual Visit Follow-up note This visit was conducted via virtual platform. August 15, 2022 HPI: Ms. Castro presents today for a follow-up visit. Per her previous visit with Dr. Shaver on 04/29/22: ASSESSMENT/PLAN: 1. Chronic intractable headache, unspecified headache type - ICD9: 784.0, ICD10: R51.9, G89.29 (primary diagnosis) 2. Pseudotumor cerebri - ICD9: 348.2, ICD10: G93.2 3. Sleep apnea-like behavior - ICD9: 780.59, ICD10: G47.39 Patient with known history of pseudotumor and headaches, with resolution of such symptoms in 2016 at which time the patient was evaluated by neurology as above. However, recurrence of headaches since having COVID in 2020. Etiology of headaches at this time uncertain. History suggestive of migrainous type headaches with headaches primarily involving the R emma cranium and associated with photophobia. That said, exam suggestive of possible mild papilledema. At this time, patient not taking significant vitamin quantities, not taking OCP and not endorsing other risk factors for increased intracranial pressure although noted BMI of 48.9. That said, feel new imaging study appropriate and will get MRI brain to evaluate for pseudotumor or other intracranial lesion that might be cause of headaches as well as MRV to evaluate for possible sinus thrombosis as cause of increased ICP. At this time patient is not wanting LP but will reconsider if headaches were to worsen or not improve with therapy. I will also have patient undergo HSAT as untreated SARAN might provoke ICP as well as migraines. Finally I have asked patient to follow up with her entry level software developer ALESSANDRA to better evaluate for papilledema. From treatment standpoint, will place patient on Zonegran 50mg QHS that will be titrated up to 100mg QHS after 2 weeks. SE and ADRs reviewed with pt. Note that Zonegran may lower ICP but also act as a migraine preventative. In addition will provide medrol dose sheila to break headache cycle and again, possibly lower intracranial pressure. Pt will follow up in 4 weeks of sooner as needed such as for worsening headache or visual changes. Pt understands the need to contact us immediately for any decline in status. Pt agrees with plan above. She states that headaches have been better. Improved directly after lumbar puncture. Did have a mild headache following the LP. Only has a headache a couple of times per week; roughly twice per week. Less severe than prior. Headaches are now much more manageable. She has been taking Zonegran 50mg. Had increased up to 100mg but wasn't doing well with this dose. Had increased SE and ultimately did resume 50mg dose. Reports she felt very out of it and jittery, especially at night/in the evening. Unsure if medication is providing relief of sx at this time. No side effects with past use of Topamax. Had stopped medication due to in 2015 and never restarted the medication after giving . Denies new speech changes, vision changes, weakness, numbness, tingling. Denies other new concerns. PAST MEDICAL HISTORY Diagnosis Date Acute pain of both hips 03/01/2022 Cymbalta has helped. Anxiety with depression 06/25/2021 Elevated hemoglobin A1c 07/26/2021 GERD without esophagitis 06/25/2021 Hip pain 07/11/2014 History of 2019 novel coronavirus disease (COVID-19) 11/01/2020 10/27/2020 Inflammatory polyarthropathy (HCC) 02/10/[address] Sandoval Low iron 01/23/2021 Muscle spasm 05/19/2013 MVP (mitral valve prolapse) 02/10/2014 On 2 D echo 01/2014 Pain in joint, ankle and foot 02/19/2012 Pseudotumor cerebri Right hip pain 06/25/2021 Saw Ortho (Dr. Brownlee) Told bone on bone. Routine gynecological examination Dr Doty Valvular heart disease 02/10/2014 2D echo 01/2014: 1+ MVI and TI Vitamin D deficiency 02/10/2014 PAST SURGICAL HISTORY Procedure Laterality Date 2D ECHO (EXEP) EF=60%, mild MVP, +1 MVI and TI DELIVERY ONLY , low cervical DELIVERY ONLY 07/07/2017 PAST SURGICAL HISTORY OF 08/2000 TENDON REPAIR RIGHT WRIST STRESS ECHO 02/13/2021 normal TONSILLECTOMY PRIMARY/SECONDARY <AGE 12 02/2014 Tonsillectomy Current Outpatient Medications on File Prior to Visit Medication Sig zonisamide (ZONEGRAN) 100 mg capsule Take 1 capsule by mouth once daily. methylPREDNISolone (MEDROL, SHEILA,) 4 mg Dose-Pack Take as directed on package. DULoxetine (CYMBALTA) 30 mg capsule Take 1 capsule by mouth once daily. acetaminophen (TYLENOL EXTRA STRENGTH) 500 mg tablet Take 2 tablets by mouth every 6 hours as needed (pain). FOR PAIN. ibuprofen (MOTRIN) 600 mg tablet Take 1 tablet by mouth every 6 hours as needed (pain). FOR PAIN. Cholecalciferol, Vitamin D3, 50 mcg (2,000 unit) cap Take 1 capsule by mouth once daily. omeprazole (PRILOSEC) 20 mg capsule Take 1 capsule by mouth daily before breakfast. 1/2 hr before meal. (Patient not taking: Reported on 04/29/2022 ) Ferrous Sulfate (SLOW FE) 142 mg (45 mg iron) TbER Take 1 tablet by mouth once daily. No current facility-administered medications on file prior to visit. Social History Tobacco Use Smoking status: Never Smokeless tobacco: Never Vaping Use Vaping Use: Never used Substance Use Topics Alcohol use: Yes Comment: Occasionally, not while Drug use: No ALLERGIES Allergen Reactions Diamox [Acetazolami* Other: See Comments Numbness in hands and feet Review of Systems: Cardiopulmonary: denies chest pain, palpitations Respiratory: denies shortness of breath GI/: denies recent nausea, vomiting, diarrhea, constipation, incontinence Musculoskeletal: denies weakness Neuro: denies tremors, loss of feeling, dizziness, seizure, blackout, paresthesia, facial paresthesia, facial weakness, difficulty in speech, slurring of words, dysarthria, dysphagia, memory loss, + headache, vision changes, loss of hearing unless otherwise noted in HPI. Physical Exam: Patient is alert and in no distress. Dress is appropriate. Mood is appropriate Breathing appears regular and unstressed Neurologic examination: Limited exam due to virtual platform. Cognitively intact. No deficits. No formal MMSE performed. CN: extraocular movements intact with no nystagmus, face is symmetric with no facial droop, hearing intact bilaterally, shoulder shrug is symmetric. Motor exam shows 5/5 strength symmetric through the upper and lower extremities in all groups observed. Coordination: No dysmetria on finger to nose. No tremors noted. No drift seen. Gait normal in stance and pattern. Labs/studies: MRI Report MRI BRAIN WO IVCON Exam End: 05/13/2022 8:48 AM (Final result) Narrative: * * *Final Report* * * DATE OF EXAM: May 13 2022 8:20AM [facility] [id number] - MRI BRAIN WO IVCON / PROCEDURE REASON: multiple diagnoses * * * * Physician Interpretation * * * * EXAMINATION: MRI BRAIN WO IVCON, MRV BRAIN WO IVCON CLINICAL HISTORY: Chronic intractable headache. TECHNIQUE: Routine noncontrast MRI protocol including diffusion images. [id number] MRV without contrast was also obtained with 2-D multiplanar and 3-D maximum intensity projections calculated on the imaging workstation under physician supervision. MQ: [id number] COMPARISON: CT/CTA head 07/24/2015 RESULT: Acute Change: There is no evidence of restricted diffusion to suggest an acute infarct. Hemorrhage: No evidence of prior parenchymal hemorrhage on the gradient echo images. Mass Lesion/ Mass Effect: No evidence of an intracranial mass or extra-axial fluid collection. No significant mass effect. Chronic Change: The white matter is within normal limits of signal intensity for age. Parenchyma: No significant volume loss for age. The brain parenchyma is otherwise within normal limits of signal intensity and morphology. Ventricles: Normal caliber and morphology. Skull Base: There is flattening of the pituitary, greater than expected for age. Craniocervical junction is patent. No evidence of pathologic marrow infiltration. Vasculature: Major intracranial arterial structures, and dural venous sinuses show typical flow void, suggesting patency by spin echo criteria. Other: The paranasal sinuses are clear. The optic nerve sheaths are enlarged. The orbits and globes are otherwise unremarkable. Visualized extracranial soft tissues are unremarkable. Incidental hyperostosis frontalis interna. MRV: There is tapered narrowing of the anterior superior sagittal sinus, as well as the bilateral transverse and sigmoid sinuses, which can be seen in the setting of intracranial hypertension. No discrete dural venous sinus thrombosis is identified. Impression: IMPRESSION: 1. No acute intracranial findings. 2. Constellation of findings suggestive of intracranial hypertension, including flattening of the pituitary, dilation of the bilateral optic nerve sheaths, and narrowing of the dural venous sinuses. Director Of Partner Marketing: [facility] Transcribe Date/Time: May 13 2022 10:36A Dictated by : ALYCIA JERONIMO MD This examination was interpreted and the report reviewed and electronically signed by: ALYCIA JERONIMO MD on May 13 2022 10:45AM EST Component Latest Ref Rng & Units 12/20/2020 09/25/2021 03/01/2022 05/30/2022 WBC 3.70 - 11.00 k/uL 8.19 RBC 3.90 - 5.20 m/uL 4.89 Hemoglobin 11.5 - 15.5 g/dL 12.6 Hematocrit 36.0 - 46.0 % 41.9 MCV 80.0 - 100.0 fL 85.7 MCH 26.0 - 34.0 pG 25.8 (L) MCHC 30.5 - 36.0 g/dL 30.1 (L) RDW-CV 11.5 - 15.0 % 16.5 (H) Platelet Count 150 - 400 k/uL 431 (H) MPV 9.0 - 12.7 fL 11.2 Neut% % 55.4 Abs Neut (ANC) 1.45 - 7.50 k/uL 4.54 Lymph% % 36.8 Abs Lymph 1.00 - 4.00 k/uL 3.01 [place]% % 5.1 Abs [place] <0.87 k/uL 0.42 Eosin% % 2.3 Abs Eosin <0.46 k/uL 0.19 Baso% % 0.4 Abs Baso <0.11 k/uL 0.03 Nucleated Reds 0 /100 WBC 0.0 Absolute nRBC <0.01 k/uL <0.01 Diff Type Auto Diff Protein, Total 6.3 - 8.0 g/dL 7.7 Albumin 3.9 - 4.9 g/dL 4.4 Calcium 8.5 - 10.2 mg/dL 9.4 Bilirubin, Total 0.2 - 1.3 mg/dL 0.3 Alkaline Phosphatase 34 - 123 U/L 80 AST 13 - 35 U/L 24 Glucose 74 - 99 mg/dL 76 BUN 7 - 21 mg/dL 14 Creatinine 0.58 - 0.96 mg/dL 0.78 Sodium 136 - 144 mmol/L 139 Potassium 3.7 - 5.1 mmol/L 3.9 Chloride 97 - 105 mmol/L 100 CO2 22 - 30 mmol/L 27 Anion Gap 9 - 18 mmol/L 12 ALT 7 - 38 U/L 18 eGFR- >60 eGFR-All Other Races . >60 CSF Tube Nbr Tube 2 Color, CSF Colorless Colorless Clarity, CSF Clear Clear Supernatant Color, CSF Colorless Not Indicated Supernatant Clarity, CSF Clear Not Indicated RBC, CSF 0 - 5 cells/uL 1 Total Nucleated Cells, CSF 0 - 5 cells/uL 1 DIF TTL, CSF cells counted 100 Lymph%, CSF 50 - 90 % 88 [place]%, CSF 10 - 50 % 9 (L) Macro%, CSF <1 % 3 (H) Hemoglobin A1C 4.3 - 5.6 % 5.8 (H) Estimated Average Glucose mg/dL 120 TSH 0.270 - 4.200 mIU/L 1.650 Free T4 0.9 - 1.7 ng/dL 1.2 Glucose, CSF 40 - 70 mg/dL 60 Protein, CSF 15 - 45 mg/dL 18 Assessment/Plan: R51.9, G89.29 Chronic intractable headache, unspecified headache type (primary encounter diagnosis) G93.2 Pseudotumor cerebri G47.39 Sleep apnea-like behavior Comment: Patient previously seen for history of pseudotumor and headaches with resolution of symptoms in 2017 but recurrence after COVID infection in 2020. MRI/V of brain completed in interim to evaluate further for etiology of headaches (pseudotumor, intracranial lesion, sinus thrombosis). Results suggestive of intracranial hypertension. HSAT also ordered (as untreated SARAN may exacerbate migraines and ICP) and pt reports completion of testing, however, results not available in chart. Will determine why results not available. At time of last appointment she was started on Zonegran 50mg with titration up to 100mg. However, as symptoms persisted she ultimately underwent LP. Following LP she reports significant improvement of headaches and now only occurring two days per week to less severe degree. She does report that upon increasing Zonegran to 100mg she experienced worsening of SE and had to decrease back down to 50mg dose. Today she still notes SE even with 50mg dose and would prefer to trial alternative medication. On further discussion she reports that Topamax managed symptoms in the past upon initial diagnosis and she tolerated medication well without SE. Reports medication was discontinued due to and was not restarted after. After discussion she would like to transition from Zonegran to Topamax. On review of chart appears she was taking 50mg Topamax BID in past. Will transition and titrate up slowly to 50mg BID. If at any time headaches worsen she is aware she is to notify office. Tanya Vernon APRN.ELVIRA I spent a total of 30 minutes on the date of the service which included preparing to see the patient, [id number] patient care, completing clinical documentation, obtaining and/or reviewing separately obtained history, performing a medically appropriate examination, counseling and educating the patient/family/caregiver, and ordering medications, tests, or procedures. documented in this encounter [facility] 07-02-2022 Miscellaneous Notes PATIENT NOTIFIED OF SAME. TC to patient with update from provider that prescription was changed from 2, 50mg tablets a day to 1, 100 mg tablet a day. No answer. Left VM to return call to office. BLAYNE Thomas Spoke with pt yes she is still taking this medication. Pt states she takes 2 once a day. Evi Dang LPN TC to patient with no answer. Left message to return call to office. Provider wants to check that pt is still taking medication and if so, how much. BLAYNE Thomas Patient has been identified by name and date of : Yes Pharmacy phones for refill(s): Pending Prescriptions Disp Refills ZONISAMIDE 50 MG CAPSULE 180 capsule 1 Sig: TAKE 1 CAPSULE AT BEDTIME FOR 2 WEEKS. AFTER 2 WEEKS INCREASE TO 2 CAPSULES AT BEDTIME. DANNI: Yes Date of last office visit in primary care: JONES 04/29/2022 Appointment scheduled 08/15/2022 Last 2 Encounter Wt Readings: Date: Wt: 04/29/2022 120.7 kg (266 lb) 03/01/2022 120.7 kg (266 lb) Pharmacy is requesting a 90 day prescription with diagnosis codes. Please advise. Thank you. BLAYNE Thomas documented in this encounter [facility] 05-30-2022 Miscellaneous Notes TC to patient who verbalizes understanding of providers message with no questions at this time. BLAYNE Thomas ----- Message from Damien Shaver Jr., MD sent at 05/30/2022 1:31 PM EDT ----- Per record: Successful lumbar puncture at L2-3, 21 cc of clear CSF removed in 4 vials OP: 29 (ELEVATED) CP: <15 documented in this encounter [facility] 05-30-2022 Miscellaneous Notes BRIEF OPERATIVE / PROCEDURE NOTE LOG ID: [id number] SURGERY/PROCEDURE DATE: 05/30/2022 INCISION/PROCEDURE START TIME: 10:49 AM INCISION CLOSE/PROCEDURE END TIME: 11:10 AM SURGEON(S)/PROCEDURALIST(S) AND RAIL CAR PAINTER/SANDBLASTER(S): Surgeon(s) and Role: * Zenobia Wetzel APRN.TYPESETTERS PRINTER - Primary Leighann Sandy PA-C -Balcony Worker No Additional Staff SURGERY/PROCEDURE(S): Diagnostic Lumbar Puncture ANESTHESIA: Local FINDINGS: Successful lumbar puncture at L2-3, 21 cc of clear CSF removed in 4 vials OP: 29 CP: <15 ESTIMATED BLOOD LOSS: Minimal SPECIMENS: 21 cc of clear CSF COMPLICATIONS: None PRE-OP/PRE-PROCEDURE DIAGNOSIS: Psuedotumor cerebri POST-OP/POST-PROCEDURE DIAGNOSIS: Same as Preop SIGNATURE: Leighann Sandy PA-C PATIENT NAME: Michael Castro DATE: May 30, 2022 TIME: 11:14 AM PAGER: [phone] AMBULATORY PATIENT EDUCATION TOPIC: Survival Skills: intraprocedural education READINESS TO LEARN COGNITIVE ABILITY: Alert and oriented MOTIVATION TO LEARN: Interested FAMILY SUPPORT: Moderate - Family present but overwhelmed INSTRUCTION PROVIDED TO: Patient PATIENT LEARNS BEST BY: Verbal Instruction FACTORS AFFECTING LEARNING: None PHYSICAL LIMITATIONS AFFECTING LEARNING: None LEARNING RESPONSE DIAGNOSIS: Dx Lumbar Puncture METHOD OF INSTRUCTION: Individual instruction PATIENT / FAMILY RESPONSE: Information received as demonstrated by interest and questions FOLLOW-UP PLAN: Complete - No need for follow-up SUPPLEMENTAL MATERIAL: None REFERRAL (RECOMMENDATION): None Electronically Signed By: Juan Jacques RN In Department: HB [id number] documented in this encounter [facility] 05-23-2022 Nurse Note IR Lumbar Puncture Pre Procedure Instructions - 05/30/2022 Michael Castro is scheduled for an appointment for LUMBAR PUNCTURE DIAGNOSTIC with local anesthetic scheduled on , May 30, 2022 at [facility], [address] [place] [address]. Arrival: [facility] Entrance. Arrive to [place] [address] Imaging Department by 8:30 am. Please bring your Photo ID and Insurance Card. Chronometer Adjuster/Transportation: If you will be arriving at [facility] via ambulance/medical transportation or public transportation/shuttle, you still need a responsible adult to accompany you to and from the procedure and recommended to stay with you for 24 hours after the procedure. You will need a responsible adult to accompany you to and from the procedure. Your speedboat driver is required to stay with you until you are taken into the procedure room. Please see updated Visitor Guidelines at [email or web address]. Labs: No labs needed per policy. Diet: This procedure is performed with local anesthetic. It is ok to eat a light meal prior to the procedure. Clothing: Wear comfortable clothing, you will not need to change into a hospital gown. Medications: You may take your prescribed medications as usual. Recovery expectations: You will be in the recovery room post procedure for a minimum of 1 hour(s). Special concerns: Can you lay on your stomach? Do you have a Neulasta Onpro Device or will you have one on the day of procedure? - If yes, Imaging Exam should be rescheduled Do you have any medication pumps or monitoring devices on your body? Do you have any questions, concerns? If you have any questions please call [phone], Neuro Interventional Radiology Alisha Agee RN documented in this encounter [facility] 05-16-2022 Miscellaneous Notes TC to patient who says she agrees with provider and would like to have the lumbar puncture. Patient also says that her headaches completely went away when she was taking the Prednisone but came back full force once the package was complete. Just wanted provider to be aware. Please advise. Thank you. BLAYNE Thomas Patient may benefit from lumbar puncture as she had in the past - for diagnosis and treatment. If she would like to schedule, please have her let us know and I can place order. We can also try to increase the Zonegran dose so long as she is not having side effects. However, as patient has not responded to medications or has had side effects from them in the past, and as she has has relief of symptoms will lumbar puncture in the past, then LP might be best option at this time. Damien Shaver MD Patient aware of results and states she is taking the Zonegran as ordered with no real relief noted. Also takes ibuprofen and tylenol PRN for pain and partially effective. Patient requesting DR. Shaver be made aware that patient has Eye Dr appointment on FridayMay 20. Tesha Godinez LPN ----- Message from Damien Shaver Jr., MD sent at 05/14/2022 12:56 PM EDT ----- Pt MRI does suggest intracranial HTN. Please contact pt to confirm still taking Zonegran and whether headaches have improved. If persist, and given side effects on Diamox and Topamax, may benefit from LP (which will also allow for pressure measurement). Damien Shaver MD documented in this encounter [facility] 05-13-2022 History of Present illness Narrative Radiology Service Progress Note PATIENT NAME: Michael Castro DATE OF SERVICE: May 13, 2022 TIME: 8:01 AM PATIENT IDENTITY VERIFICATION COMPLETED USING TWO (2) IDENTIFIERS: Name and Date of confirmed by patient verbally. FALL SCREENING: Has the patient had 2 falls in the last year or 1 fall with injury or currently using an Ambulatory Assistive Device (Walker, Cane, Wheelchair, Crutches, etc.)? No PATIENT GENDER DATA: Female. status: : No status: NO. PATIENT RELEVANT IMPLANT DATA REVIEWED: Yes RADIOLOGY DEPARTMENT: MR; Exam(s) Completed: Head: Routine Brain Sagittal Sinus MRV PERIPHERAL IV DATA: Not applicable SIGNED BY: RT Betzy(R) May 13, 2022 8:01 AM documented in this encounter [facility] 03-01-2022 Instructions Sanket Cruz MD - 03/01/2022 10:16 AM EDT Discussed weaning off the omeprazole 20 mg by doing 1 tab every other day for a month then one twice a week (Mon,Thur) for a month and then stop. Please get labs done on or after 08/16/2022 prior to your next visit. documented in this encounter [facility] 03-01-2022 History of Present illness Narrative Chief Complaint Patient presents with: Recheck: 5 months HPI Michael Castro is a 36 year old female who presents here today for Chronic Medical Conditions and Acute Complaints.. Patient with hx of pseudotumor cerebri, MPV, inflammatory polyarthropathy (used to see Dr. Richardson), low Iron, elevated A1c, anxiety with Depression, GERD, low iron, morbid obesity, Vit D def as well as those reviewed and addressed below and in ROS. No concerns today patient is doing well on omeprazole 20 mg daily. Last appointment was suggested if doing well could discuss weaning medication. Patient is also doing Cymbalta 30 mg and is tolerating well with no issue. Past medical history, appointments, medications, allergies reviewed. Previous Medical History PAST MEDICAL HISTORY Diagnosis Date Anxiety with depression 06/25/2021 Elevated hemoglobin A1c 07/26/2021 GERD without esophagitis 06/25/2021 Hip pain 07/11/2014 History of 2019 novel coronavirus disease (COVID-19) 11/01/2020 10/27/2020 Inflammatory polyarthropathy (HCC) 02/10/[address] Sandoval Low iron 01/23/2021 Muscle spasm 05/19/2013 MVP (mitral valve prolapse) 02/10/2014 On 2 D echo 01/2014 Pain in joint, ankle and foot 02/19/2012 Pseudotumor cerebri Right hip pain 06/25/2021 Saw Ortho (Dr. Brownlee) Told bone on bone. Routine gynecological examination Dr Doty Valvular heart disease 02/10/2014 2D echo 01/2014: 1+ MVI and TI Vitamin D deficiency 02/10/2014 Previous Surgical History PAST SURGICAL HISTORY Procedure Laterality Date 2D ECHO (EXEP) EF=60%, mild MVP, +1 MVI and TI DELIVERY ONLY , low cervical DELIVERY ONLY 07/07/2017 PAST SURGICAL HISTORY OF 08/2000 TENDON REPAIR RIGHT WRIST STRESS ECHO 02/13/2021 normal TONSILLECTOMY PRIMARY/SECONDARY <AGE 12 02/2014 Tonsillectomy Family History FAMILY HISTORY Problem Relation Age of Onset Seizures Mother tonic-clonic, quiescent off medication Diabetes Maternal Grandfather Hypertension Maternal Grandfather Heart Maternal Grandfather had a difibulator Hypertension Paternal Grandmother other (Other) Paternal Grandmother No breast/hand bobbin cleaner cancer Aneurysm Paternal Grandfather other (cask gene mutation) Daughter Coronary Artery Disease No Family History Patient Allergies ALLERGIES Allergen Reactions Diamox [Acetazolami* Other: See Comments Numbness in hands and feet Current Medications Current Outpatient Medications on File Prior to Visit Medication Sig acetaminophen (TYLENOL EXTRA STRENGTH) 500 mg tablet Take 2 tablets by mouth every 6 hours as needed (pain). FOR PAIN. ibuprofen (MOTRIN) 600 mg tablet Take 1 tablet by mouth every 6 hours as needed (pain). FOR PAIN. DULoxetine (CYMBALTA) 30 mg capsule Take 1 capsule by mouth once daily. Cholecalciferol, Vitamin D3, 50 mcg (2,000 unit) cap Take 1 capsule by mouth once daily. omeprazole (PRILOSEC) 20 mg capsule Take 1 capsule by mouth daily before breakfast. 1/2 hr before meal. Ferrous Sulfate (SLOW FE) 142 mg (45 mg iron) TbER Take 1 tablet by mouth once daily. Current Facility-Administered Medications on File Prior to Visit Medication perflutren lipid microspheres 1.3 mL in NaCl (PF) 0.9% 10 mL injection (DEFINITY) sodium chloride 0.9 % (flush) 10 mL (BD POSIFLUSH) Social History Social History Tobacco Use Smoking status: Never Smoker Smokeless tobacco: Never Used Vaping Use Vaping Use: Never used Substance Use Topics Alcohol use: Yes Comment: Occasionally, not while Drug use: No Review of Symptoms REVIEW OF SYSTEMS GENERAL: No weight loss, malaise. Last week of January had a fever and none since. NECK: Negative for lumps, goiter, pain and significant neck swelling RESPIRATORY: Negative for cough, hemoptysis, wheezing, COPD, dyspnea or shortness of breath CARDIOVASCULAR: Negative for chest pain, leg swelling, hypertension, CHF or palpitations GI: No nausea, vomiting, or diarrhea and No heartburn or reflux symptoms PSYCH: Negative for sleep disturbance, mood disorder and recent psychosocial stressors ENDOCRINE: Negative for cold, polyuria, polydipsia, goiter, Positive for heat intolerance: . NEURO: No history of syncope, paralysis, seizures or tremors. Has been getting daily headache's. Has not seen Neuro for her pseudotumor cerebri in several years. Musc: Patient has noted that since she has been on the cymbalta the pain in her hips is less and much more tolerable. EXAM: BP 126/84 Pulse 78 Resp 12 Wt 120.7 kg (266 lb) LMP 02/02/2022 BMI 48.95 kg/m Last 4 Encounter Wt Readings: Date: Wt: 03/01/2022 120.7 kg (266 lb) 02/14/2022 121.1 kg (267 lb) 12/03/2021 121.6 kg (268 lb) 09/25/2021 122.9 kg (271 lb) General Appearance: Well appearing, alert, in no acute distress, well-hydrated, well nourished. and Morbidly obese. Eyes: Anicteric sclera. Pupils are equally round and reactive to light. Extraocular movements are intact. . Neck: Supple, no adenopathy; thyroid symmetric, normal size, no bruits. Lungs: Lungs clear to auscultation. No wheezing, rhonchi, rales.. Heart: RRR without murmur, gallop, or rubs. No ectopy. Abdomen: Normal abdominal exam, Abdomen soft, non-tender. Bowel sounds normal. No masses, organomegaly. Extremities: No deformities, edema, skin discoloration, Peripheral Pulses: Normal. Health Maintenance List COVID-19 VACCINE(3 - Booster for Pfizer series) due on 09/06/2021 INFLUENZA(Season Ended) due on 07/25/2022 PAP TESTING due on 02/24/2024 HPV TESTING due on 02/24/2024 DTAP,TDAP,TD(2 - Td or Tdap) due on 06/05/2027 HIV SCREENING Completed MENINGOCOCCAL CONJUGATE Aged Out HEPATITIS C SCREENING Discontinued Data reviewed Component Latest Ref Rng & Units 07/21/2021 09/25/2021 WBC 3.70 - 11.00 k/uL 8.19 RBC 3.90 - 5.20 m/uL 4.89 Hemoglobin 11.5 - 15.5 g/dL 12.6 Hematocrit 36.0 - 46.0 % 41.9 MCV 80.0 - 100.0 fL 85.7 MCH 26.0 - 34.0 pG 25.8 (L) MCHC 30.5 - 36.0 g/dL 30.1 (L) RDW-CV 11.5 - 15.0 % 16.5 (H) Platelet Count 150 - 400 k/uL 431 (H) MPV 9.0 - 12.7 fL 11.2 Neut% % 55.4 Abs Neut (ANC) 1.45 - 7.50 k/uL 4.54 Lymph% % 36.8 Abs Lymph 1.00 - 4.00 k/uL 3.01 [place]% % 5.1 Abs [place] <0.87 k/uL 0.42 Eosin% % 2.3 Abs Eosin <0.46 k/uL 0.19 Baso% % 0.4 Abs Baso <0.11 k/uL 0.03 Nucleated Reds 0 /100 WBC 0.0 Absolute nRBC <0.01 k/uL <0.01 Diff Type Auto Diff Iron 41 - 186 ug/dL 87 TIBC 232 - 386 ug/dL 390 (H) Transferrin Saturation 15 - 57 % 22 Hemoglobin A1C 4.3 - 5.6 % 5.9 (H) Estimated Average Glucose mg/dL 123 Vitamin D 25 Hydroxy 31.0 - 80.0 ng/mL 38.0 A/P ASSESSMENT/PLAN: 1. GERD without esophagitis - ICD9: 530.81, ICD10: K21.9 (primary diagnosis) - Discussed weaning off the omeprazole 20 mg by doing 1 tab every other day for a month then one twice a week (Mon,Thur) for a month and then stop. 2. Anxiety with depression - ICD9: 300.4, ICD10: F41.8 Doing well. No changes - DULOXETINE 30 MG CAPSULE,DELAYED RELEASE Check - TSH BLD - T4 FREE/FREE THYROX 3. Elevated hemoglobin A1c - ICD9: 790.29, ICD10: R73.09 - Check A1c 4. Pseudotumor cerebri - ICD9: 348.2, ICD10: G93.2 - CONSULT TO NEUROLOGY 5. Inflammatory polyarthropathy (HCC) - ICD9: 714.9, ICD10: M06.4 - Cymbalta seems to be helping. Discussed increasing does to 30 mg twice a day and patient will consider this. 6. Acute pain of both hips - ICD9: 719.45, ICD10: M25.551, M25.552 - As per #5 7. Vitamin D deficiency - ICD9: 268.9, ICD10: E55.9 - Stable with replacement 8. Morbid obesity (HCC) - ICD9: 278.01, ICD10: E66.01 Stable - Behavioral intervention 9. Low iron - ICD9: 280.9, ICD10: E61.1 - Last labs good. No changes. 10. Headaches - ICD9: 784.0, ICD10: R51.9 - CONSULT TO NEUROLOGY 11. Heat intolerance - ICD9: 780.99, ICD10: R68.89 Check - TSH BLD - T4 FREE/FREE THYROX Signed Prescriptions Disp Refills DULoxetine (CYMBALTA) 30 mg capsule 90 capsule 1 Sig: Take 1 capsule by mouth once daily. DANNI: No F/u 6 months WAE check lipid, A1c, CBC, Iron, B12, Mg, Vit D prior Sanket Cruz MD documented in this encounter [facility] 02-15-2022 Miscellaneous Notes Patient notified and voiced understanding of below information and instructions. Suzanne Smith RN Patient's pelvic US is normal. Thus I do not think that any gynecologic process is causing her fever. I am sorry to hear that she is not feeling well. I would encourage her to be seen by primary care for further evaluation. She could go to urgent care today if needed. Mine Doty MD Patient had her pelvic ultrasound this morning for pelvic pain. States as the morning has progressed, she began not feeling well. Took her temperature. It's 100.5. Having chills too. Asking if this could be related to her pain. Ave Gallardo RN documented in this encounter [facility] 02-14-2022 History of Present illness Narrative Michael Castro is a 36 year old female who presents for problem visit. HPI: Patient presents with pain since the end of menses - 02/07/22. Pain is from her belly button to the LLQ. She feels pain with heaviness that something is going to come out. Pain is constant but varies in severity. At times the pain is stabbing and causes her to feel nauseated & dizzy. A hot bathtub and certain positions can make the pain a little better. She typically has pain with menses but this is different pain. OB History T1 L2 SAB1 IAB0 Ectopic0 Multiple0 Live Births2 Convex Grinder History LMP: 02/02/2022, Having periods Age at Menarche: Age at First : Age at Menopause: Convex Grinder History Comments: Sexual Activity: Yes; Male; one clean tatoo, no transfusions Contraception: Tubal Ligation PAST MEDICAL HISTORY Diagnosis Date Anxiety with depression 06/25/2021 Elevated hemoglobin A1c 07/26/2021 GERD without esophagitis 06/25/2021 Hip pain 07/11/2014 History of 2019 novel coronavirus disease (COVID-19) 11/01/2020 10/27/2020 Inflammatory polyarthropathy (HCC) 02/10/[address] Sandoval Low iron 01/23/2021 Muscle spasm 05/19/2013 MVP (mitral valve prolapse) 02/10/2014 On 2 D echo 01/2014 Pain in joint, ankle and foot 02/19/2012 Pseudotumor cerebri Right hip pain 06/25/2021 Saw Ortho (Dr. Brownlee) Told bone on bone. Routine gynecological examination Dr Doty Valvular heart disease 02/10/2014 2D echo 01/2014: 1+ MVI and TI Vitamin D deficiency 02/10/2014 PAST SURGICAL HISTORY Procedure Laterality Date 2D ECHO (EXEP) ' EF=60%, mild MVP, +1 MVI and TI DELIVERY ONLY , low cervical DELIVERY ONLY 07/07/2017 PAST SURGICAL HISTORY OF 08/2000 TENDON REPAIR RIGHT WRIST STRESS ECHO 02/13/2021 normal TONSILLECTOMY PRIMARY/SECONDARY <AGE 12 02/2014 Tonsillectomy FAMILY HISTORY Problem Relation Age of Onset Seizures Mother tonic-clonic, quiescent off medication Diabetes Maternal Grandfather Hypertension Maternal Grandfather Heart Maternal Grandfather had a difibulator Hypertension Paternal Grandmother other (Other) Paternal Grandmother No breast/hand 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 Cholecalciferol, Vitamin D3, 50 mcg (2,000 unit) cap Take 1 capsule by mouth once daily. omeprazole (PRILOSEC) 20 mg capsule Take 1 capsule by mouth daily before breakfast. 1/2 hr before meal. Ferrous Sulfate (SLOW FE) 142 mg (45 mg iron) TbER Take 1 tablet by mouth once daily. Current Facility-Administered Medications Medication Dose Route Frequency perflutren lipid microspheres 1.3 mL in NaCl (PF) 0.9% 10 mL injection (DEFINITY) INTRAVENOUS DIRECTED PRN sodium chloride 0.9 % (flush) 10 mL (BD POSIFLUSH) 10 mL INTRAVENOUS DIRECTED PRN Allergies As of Date: 02/14/2022 Allergen Noted Reaction DIAMOX [ACETAZOLAMIDE] 05/16/2016 Other: See Comments Fully Assessed 02/14/2022 REVIEW OF SYSTEMS Bladder: No dysuria, gross hematuria, urinary frequency, urinary urgency, or incontinence. Allergies and current medication updated:Yes EXAM: BP 120/90 Wt 267 lb (121.1kg) LMP 02/02/2022 GENERAL: pleasant, female in no apparent distress ABDOMEN: soft and no masses, minimal LLQ tenderness PELVIC: external genitalia normal, normal Bartholin's glands, urethra, [place]'s glands, no vulvar lesions, no cervical lesions, good vaginal support, physiologic discharge present, normal appearing perineal body and perianal region BIMANUAL: uterus & adnexa not discretely palpated as exam limited by obesity, patient with mild tenderness on exam ASSESSMENT AND PLAN: 36yo female with pelvic pain Check pelvic US Advised on tylenol & ibuprofen regularly to control pain Medical Decision Making: Problems: Moderate: New problem with uncertain prognosis Data: Unique test(s) ordered: 1 Risk: Low: Low risk from testing/treatment Medical Decision Making Level: 3 - Low Mine Doty MD documented in this encounter [facility] 05-09-2017 History of Past i llness Narrative Problem Noted Date Resolved Date Request for sterilization 05/09/20172016 Overview: 05/09/17 - patient requests tubal ligation - KJ History of delivery, currently 12/12/2016 08/12/2017 Overview: 01/14/17 - Risks/benefits/alternatives discussed with patient regarding trial of labor and potential for uterine rupture. Risks include but are not limited to maternal hemorrhage, risk of injury to adjacent organs including potential hysterectomy. risks discussed as well, including potential for permanent neurologic injury or . Overall uterine rupture risk is less than 1% after one section. Is a trial of labor contraindicated for this patient? No If no, calculate rate of success using pre-labor factors: http://www.bs.[facility].edu/mfmu/vagbirth.html Predicted chance of vaginal after : 23% Patient's plan for delivery mode: Repeat Mine Doty MD 12/12/2016Pt had a previous C section. She desires a . She will discuss this with Dr Doty at NOB appointment. C section operative report in Suite [address] Doty review. TKRN History of labor 12/12/2016 017 Overview: 12/12/2016Pt has a history of labor with her prior . She was given Terbutaline. She went on to deliver term. TKRN Nausea and vomiting during 12/12/2016 08/12/2017 Overview: 12/12/2016Patient is complaining of nausea in . She denies vomiting. Advised patient to call/come in if she is unable to keep any food or fluids down in a 24-hour period. Recommended Vitamin B6.TKRN Patient requested diagnostic testing 12/12/2016 01/14/2017 Overview: 12/12/2016Patient desires nuchal ultrasound. TKRN Menorrhagia with regular cycle 05/16/2016 0 04/28/2017 Threatened premature labor, antepartum(644.03) 1 12/04/2007 12/28/2008 Supervision of normal first 04/08/2008 12/28/2008 Routine gynecological examination 10/26/2014 Overview: Dr. Escobedo documented as of this encounter (statuses as of 02/14/2022) [facility] History of Past illness Narrative* Problem Noted Date Resolved Date Request for sterilization 05/09/20172016 Overview: 05/09/17 - patient requests tubal ligation - KJ History of delivery, currently 12/12/2016 08/12/2017 Overview: 01/14/17 - Risks/benefits/alternatives discussed with patient regarding trial of labor and potential for uterine rupture. Risks include but are not limited to maternal hemorrhage, risk of injury to adjacent organs including potential hysterectomy. risks discussed as well, including potential for permanent neurologic injury or . Overall uterine rupture risk is less than 1% after one section. Is a trial of labor contraindicated for this patient? No If no, calculate rate of success using pre-labor factors: http://www.[facility].edu/mu/vagbirth.html Predicted chance of vaginal after : 23% Patient's plan for delivery mode: Repeat Mine Doty MD 12/12/2016Pt had a previous C section. She desires a . She will discuss this with Dr Doty at NOB appointment. C section operative report in Suite [address] Doty review. TKRN History of labor 12/12/2016 017 Overview: 12/12/2016Pt has a history of labor with her prior . She was given Terbutaline. She went on to deliver term. TKRN Nausea and vomiting during 12/12/2016 08/12/2017 Overview: 12/12/2016Patient is complaining of nausea in . She denies vomiting. Advised patient to call/come in if she is unable to keep any food or fluids down in a 24-hour period. Recommended Vitamin B6.TKRN Patient requested diagnostic testing 12/12/2016 01/14/2017 Overview: 12/12/2016Patient desires nuchal ultrasound. TKRN Menorrhagia with regular cycle 05/16/2016 0 04/28/2017 Threatened premature labor, antepartum(644.03) 1 12/04/2007 12/28/2008 Supervision of normal first 04/08/2008 12/28/2008 Routine gynecological examination 10/26/2014 Overview: Dr. Escobedo documented as of this encounter (statuses as of 02/15/2022) [facility] History of Past illness Narrative* Problem Noted Date Resolved Date Request for sterilization 05/09/20172016 Overview: 05/09/17 - patient requests tubal ligation - KJ History of delivery, currently 12/12/2016 08/12/2017 Overview: 01/14/17 - Risks/benefits/alternatives discussed with patient regarding trial of labor and potential for uterine rupture. Risks include but are not limited to maternal hemorrhage, risk of injury to adjacent organs including potential hysterectomy. risks discussed as well, including potential for permanent neurologic injury or . Overall uterine rupture risk is less than 1% after one section. Is a trial of labor contraindicated for this patient? No If no, calculate rate of success using pre-labor factors: http://www.bs.[email or web address]/mfmu/vagbirth.html Predicted chance of vaginal after : 23% Patient's plan for delivery mode: Repeat Mine Doty MD 12/12/2016Pt had a previous C section. She desires a . She will discuss this with Dr Doty at NOB appointment. C section operative report in Suite [address] Doty review. TKRN History of labor 12/12/2016 017 Overview: 12/12/2016Pt has a history of labor with her prior . She was given Terbutaline. She went on to deliver term. TKRN Nausea and vomiting during 12/12/2016 08/12/2017 Overview: 12/12/2016Patient is complaining of nausea in . She denies vomiting. Advised patient to call/come in if she is unable to keep any food or fluids down in a 24-hour period. Recommended Vitamin B6.TKRN Patient requested diagnostic testing 12/12/2016 01/14/2017 Overview: 12/12/2016Patient desires nuchal ultrasound. TKRN Menorrhagia with regular cycle 05/16/2016 0 04/28/2017 Threatened premature labor, antepartum(644.03) 1 12/04/2007 12/28/2008 Supervision of normal first 04/08/2008 12/28/2008 Routine gynecological examination 10/26/2014 Overview: Dr. Escobedo documented as of this encounter (statuses as of 02/15/2022) [facility] History of Past illness Narrative* Problem Noted Date Resolved Date Request for sterilization 05/09/20172016 Overview: 05/09/17 - patient requests tubal ligation - KJ History of delivery, currently 12/12/2016 08/12/2017 Overview: 01/14/17 - Risks/benefits/alternatives discussed with patient regarding trial of labor and potential for uterine rupture. Risks include but are not limited to maternal hemorrhage, risk of injury to adjacent organs including potential hysterectomy. risks discussed as well, including potential for permanent neurologic injury or . Overall uterine rupture risk is less than 1% after one section. Is a trial of labor contraindicated for this patient? No If no, calculate rate of success using pre-labor factors: http://www.bs.[facility].edu/mfmu/vagbirth.html Predicted chance of vaginal after : 23% Patient's plan for delivery mode: Repeat Mine Doty MD 12/12/2016Pt had a previous C section. She desires a . She will discuss this with Dr Doty at NOB appointment. C section operative report in Suite [address] Doty review. TKRN History of labor 12/12/2016 017 Overview: 12/12/2016Pt has a history of labor with her prior . She was given Terbutaline. She went on to deliver term. TKRN Nausea and vomiting during 12/12/2016 08/12/2017 Overview: 12/12/2016Patient is complaining of nausea in . She denies vomiting. Advised patient to call/come in if she is unable to keep any food or fluids down in a 24-hour period. Recommended Vitamin B6.TKRN Patient requested diagnostic testing 12/12/2016 01/14/2017 Overview: 12/12/2016Patient desires nuchal ultrasound. TKRN Menorrhagia with regular cycle 05/16/2016 0 04/28/2017 Threatened premature labor, antepartum(644.03) 1 12/04/2007 12/28/2008 Supervision of normal first 04/08/2008 12/28/2008 Routine gynecological examination 10/26/2014 Overview: Dr. Escobedo documented as of this encounter (statuses as of 02/15/2022) [facility] History of Past illness Narrative* Problem Noted Date Resolved Date Request for sterilization 05/09/20172016 Overview: 05/09/17 - patient requests tubal ligation - KJ History of delivery, currently 12/12/2016 08/12/2017 Overview: 01/14/17 - Risks/benefits/alternatives discussed with patient regarding trial of labor and potential for uterine rupture. Risks include but are not limited to maternal hemorrhage, risk of injury to adjacent organs including potential hysterectomy. risks discussed as well, including potential for permanent neurologic injury or . Overall uterine rupture risk is less than 1% after one section. Is a trial of labor contraindicated for this patient? No If no, calculate rate of success using pre-labor factors: http://www.bs.[facility].edu/mfmu/vagbirth.html Predicted chance of vaginal after : 23% Patient's plan for delivery mode: Repeat Mine Doty MD 12/12/2016Pt had a previous C section. She desires a . She will discuss this with Dr Doty at NOB appointment. C section operative report in Suite [address] Doty review. TKRN History of labor 12/12/2016 017 Overview: 12/12/2016Pt has a history of labor with her prior . She was given Terbutaline. She went on to deliver term. TKRN Nausea and vomiting during 12/12/2016 08/12/2017 Overview: 12/12/2016Patient is complaining of nausea in . She denies vomiting. Advised patient to call/come in if she is unable to keep any food or fluids down in a 24-hour period. Recommended Vitamin B6.TKRN Patient requested diagnostic testing 12/12/2016 01/14/2017 Overview: 12/12/2016Patient desires nuchal ultrasound. TKRN Menorrhagia with regular cycle 05/16/2016 0 04/28/2017 Threatened premature labor, antepartum(644.03) 1 12/04/2007 12/28/2008 Supervision of normal first 04/08/2008 12/28/2008 Routine gynecological examination 10/26/2014 Overview: Dr. Escobedo documented as of this encounter (statuses as of 02/16/2022) [facility] History of Past illness Narrative* Problem Noted Date Resolved Date Request for sterilization 05/09/20172016 Overview: 05/09/17 - patient requests tubal ligation - KJ History of delivery, currently 12/12/2016 08/12/2017 Overview: 01/14/17 - Risks/benefits/alternatives discussed with patient regarding trial of labor and potential for uterine rupture. Risks include but are not limited to maternal hemorrhage, risk of injury to adjacent organs including potential hysterectomy. risks discussed as well, including potential for permanent neurologic injury or . Overall uterine rupture risk is less than 1% after one section. Is a trial of labor contraindicated for this patient? No If no, calculate rate of success using pre-labor factors: http://www.[email or web address]/mfmu/vagbirth.html Predicted chance of vaginal after : 23% Patient's plan for delivery mode: Repeat Mine Doty MD 12/12/2016Pt had a previous C section. She desires a . She will discuss this with Dr Doty at NOB appointment. C section operative report in Suite [address] Doty review. TKRN History of labor 12/12/2016 017 Overview: 12/12/2016Pt has a history of labor with her prior . She was given Terbutaline. She went on to deliver term. TKRN Nausea and vomiting during 12/12/2016 08/12/2017 Overview: 12/12/2016Patient is complaining of nausea in . She denies vomiting. Advised patient to call/come in if she is unable to keep any food or fluids down in a 24-hour period. Recommended Vitamin B6.TKRN Patient requested diagnostic testing 12/12/2016 01/14/2017 Overview: 12/12/2016Patient desires nuchal ultrasound. TKRN Menorrhagia with regular cycle 05/16/2016 0 04/28/2017 Threatened premature labor, antepartum(644.03) 1 12/04/2007 12/28/2008 Supervision of normal first 04/08/2008 12/28/2008 Routine gynecological examination 10/26/2014 Overview: Dr. Escobedo documented as of this encounter (statuses as of 03/01/2022) [facility] History of Past illness Narrative* Problem Noted Date Resolved Date Request for sterilization 05/09/20172016 Overview: 05/09/17 - patient requests tubal ligation - KJ History of delivery, currently 12/12/2016 08/12/2017 Overview: 01/14/17 - Risks/benefits/alternatives discussed with patient regarding trial of labor and potential for uterine rupture. Risks include but are not limited to maternal hemorrhage, risk of injury to adjacent organs including potential hysterectomy. risks discussed as well, including potential for permanent neurologic injury or . Overall uterine rupture risk is less than 1% after one section. Is a trial of labor contraindicated for this patient? No If no, calculate rate of success using pre-labor factors: http://www.[email or web address]/mfmu/vagbirth.html Predicted chance of vaginal after : 23% Patient's plan for delivery mode: Repeat Mine Doty MD 12/12/2016Pt had a previous C section. She desires a . She will discuss this with Dr Doty at NOB appointment. C section operative report in Suite [address] Doty review. TKRN History of labor 12/12/2016 017 Overview: 12/12/2016Pt has a history of labor with her prior . She was given Terbutaline. She went on to deliver term. TKRN Nausea and vomiting during 12/12/2016 08/12/2017 Overview: 12/12/2016Patient is complaining of nausea in . She denies vomiting. Advised patient to call/come in if she is unable to keep any food or fluids down in a 24-hour period. Recommended Vitamin B6.TKRN Patient requested diagnostic testing 12/12/2016 01/14/2017 Overview: 12/12/2016Patient desires nuchal ultrasound. TKRN Menorrhagia with regular cycle 05/16/2016 0 04/28/2017 Threatened premature labor, antepartum(644.03) 1 12/04/2007 12/28/2008 Supervision of normal first 04/08/2008 12/28/2008 Routine gynecological examination 10/26/2014 Overview: Dr. Escobedo documented as of this encounter (statuses as of 05/14/2022) [facility] History of Past illness Narrative* Problem Noted Date Resolved Date Request for sterilization 05/09/20172016 Overview: 05/09/17 - patient requests tubal ligation - KJ History of delivery, currently 12/12/2016 08/12/2017 Overview: 01/14/17 - Risks/benefits/alternatives discussed with patient regarding trial of labor and potential for uterine rupture. Risks include but are not limited to maternal hemorrhage, risk of injury to adjacent organs including potential hysterectomy. risks discussed as well, including potential for permanent neurologic injury or . Overall uterine rupture risk is less than 1% after one section. Is a trial of labor contraindicated for this patient? No If no, calculate rate of success using pre-labor factors: http://www.[email or web address]/mfmu/vagbirth.html Predicted chance of vaginal after : 23% Patient's plan for delivery mode: Repeat Mine Doty MD 12/12/2016Pt had a previous C section. She desires a . She will discuss this with Dr Doty at NOB appointment. C section operative report in Suite [address] Doty review. TKRN History of labor 12/12/2016 017 Overview: 12/12/2016Pt has a history of labor with her prior . She was given Terbutaline. She went on to deliver term. TKRN Nausea and vomiting during 12/12/2016 08/12/2017 Overview: 12/12/2016Patient is complaining of nausea in . She denies vomiting. Advised patient to call/come in if she is unable to keep any food or fluids down in a 24-hour period. Recommended Vitamin B6.TKRN Patient requested diagnostic testing 12/12/2016 01/14/2017 Overview: 12/12/2016Patient desires nuchal ultrasound. TKRN Menorrhagia with regular cycle 05/16/2016 0 04/28/2017 Threatened premature labor, antepartum(644.03) 1 12/04/2007 12/28/2008 Supervision of normal first 04/08/2008 12/28/2008 Routine gynecological examination 10/26/2014 Overview: Dr. Escobedo documented as of this encounter (statuses as of 05/16/2022) [facility] History of Past illness Narrative* Problem Noted Date Resolved Date Request for sterilization 05/09/20172016 Overview: 05/09/17 - patient requests tubal ligation - KJ History of delivery, currently 12/12/2016 08/12/2017 Overview: 01/14/17 - Risks/benefits/alternatives discussed with patient regarding trial of labor and potential for uterine rupture. Risks include but are not limited to maternal hemorrhage, risk of injury to adjacent organs including potential hysterectomy. risks discussed as well, including potential for permanent neurologic injury or . Overall uterine rupture risk is less than 1% after one section. Is a trial of labor contraindicated for this patient? No If no, calculate rate of success using pre-labor factors: http://www.bs.[facility]/mu/vagbirth.html Predicted chance of vaginal after : 23% Patient's plan for delivery mode: Repeat Mine Doty MD 12/12/2016Pt had a previous C section. She desires a . She will discuss this with Dr Doty at NOB appointment. C section operative report in Suite [address] Doty review. TKRN History of labor 12/12/2016 017 Overview: 12/12/2016Pt has a history of labor with her prior . She was given Terbutaline. She went on to deliver term. TKRN Nausea and vomiting during 12/12/2016 08/12/2017 Overview: 12/12/2016Patient is complaining of nausea in . She denies vomiting. Advised patient to call/come in if she is unable to keep any food or fluids down in a 24-hour period. Recommended Vitamin B6.TKRN Patient requested diagnostic testing 12/12/2016 01/14/2017 Overview: 12/12/2016Patient desires nuchal ultrasound. TKRN Menorrhagia with regular cycle 05/16/2016 0 04/28/2017 Threatened premature labor, antepartum(644.03) 1 12/04/2007 12/28/2008 Supervision of normal first 04/08/2008 12/28/2008 Routine gynecological examination 10/26/2014 Overview: Dr. Escobedo documented as of this encounter (statuses as of 05/23/2022) [facility] History of Past illness Narrative* Problem Noted Date Resolved Date Request for sterilization 05/09/20172016 Overview: 05/09/17 - patient requests tubal ligation - KJ History of delivery, currently 12/12/2016 08/12/2017 Overview: 01/14/17 - Risks/benefits/alternatives discussed with patient regarding trial of labor and potential for uterine rupture. Risks include but are not limited to maternal hemorrhage, risk of injury to adjacent organs including potential hysterectomy. risks discussed as well, including potential for permanent neurologic injury or . Overall uterine rupture risk is less than 1% after one section. Is a trial of labor contraindicated for this patient? No If no, calculate rate of success using pre-labor factors: http://www.bs.[facility]/mfmu/vagbirth.html Predicted chance of vaginal after : 23% Patient's plan for delivery mode: Repeat Mine Doty MD 12/12/2016Pt had a previous C section. She desires a . She will discuss this with Dr Doty at NOB appointment. C section operative report in Suite [address] Doty review. TKRN History of labor 12/12/2016 017 Overview: 12/12/2016Pt has a history of labor with her prior . She was given Terbutaline. She went on to deliver term. TKRN Nausea and vomiting during 12/12/2016 08/12/2017 Overview: 12/12/2016Patient is complaining of nausea in . She denies vomiting. Advised patient to call/come in if she is unable to keep any food or fluids down in a 24-hour period. Recommended Vitamin B6.TKRN Patient requested diagnostic testing 12/12/2016 01/14/2017 Overview: 12/12/2016Patient desires nuchal ultrasound. TKRN Menorrhagia with regular cycle 05/16/2016 0 04/28/2017 Threatened premature labor, antepartum(644.03) 1 12/04/2007 12/28/2008 Supervision of normal first 04/08/2008 12/28/2008 Routine gynecological examination 10/26/2014 Overview: Dr. Escobedo documented as of this encounter (statuses as of 05/30/2022) [facility] History of Past illness Narrative* Problem Noted Date Resolved Date Request for sterilization 05/09/20172016 Overview: 05/09/17 - patient requests tubal ligation - KJ History of delivery, currently 12/12/2016 08/12/2017 Overview: 01/14/17 - Risks/benefits/alternatives discussed with patient regarding trial of labor and potential for uterine rupture. Risks include but are not limited to maternal hemorrhage, risk of injury to adjacent organs including potential hysterectomy. risks discussed as well, including potential for permanent neurologic injury or . Overall uterine rupture risk is less than 1% after one section. Is a trial of labor contraindicated for this patient? No If no, calculate rate of success using pre-labor factors: http://www.bs.[facility]/mfmu/vagbirth.html Predicted chance of vaginal after : 23% Patient's plan for delivery mode: Repeat Mine Doty MD 12/12/2016Pt had a previous C section. She desires a . She will discuss this with Dr Doty at NOB appointment. C section operative report in Suite [address] Doty review. TKRN History of labor 12/12/2016 017 Overview: 12/12/2016Pt has a history of labor with her prior . She was given Terbutaline. She went on to deliver term. TKRN Nausea and vomiting during 12/12/2016 08/12/2017 Overview: 12/12/2016Patient is complaining of nausea in . She denies vomiting. Advised patient to call/come in if she is unable to keep any food or fluids down in a 24-hour period. Recommended Vitamin B6.TKRN Patient requested diagnostic testing 12/12/2016 01/14/2017 Overview: 12/12/2016Patient desires nuchal ultrasound. TKRN Menorrhagia with regular cycle 05/16/2016 0 04/28/2017 Threatened premature labor, antepartum(644.03) 1 12/04/2007 12/28/2008 Supervision of normal first 04/08/2008 12/28/2008 Routine gynecological examination 10/26/2014 Overview: Dr. Escobedo documented as of this encounter (statuses as of 05/31/2022) [facility] History of Past illness Narrative* Problem Noted Date Resolved Date Request for sterilization 05/09/20172016 Overview: 05/09/17 - patient requests tubal ligation - KJ History of delivery, currently 12/12/2016 08/12/2017 Overview: 01/14/17 - Risks/benefits/alternatives discussed with patient regarding trial of labor and potential for uterine rupture. Risks include but are not limited to maternal hemorrhage, risk of injury to adjacent organs including potential hysterectomy. risks discussed as well, including potential for permanent neurologic injury or . Overall uterine rupture risk is less than 1% after one section. Is a trial of labor contraindicated for this patient? No If no, calculate rate of success using pre-labor factors: http://www.[facility].edu/mfmu/vagbirth.html Predicted chance of vaginal after : 23% Patient's plan for delivery mode: Repeat Mine Doty MD 12/12/2016Pt had a previous C section. She desires a . She will discuss this with Dr Doty at NOB appointment. C section operative report in Suite [address] Doty review. TKRN History of labor 12/12/2016 017 Overview: 12/12/2016Pt has a history of labor with her prior . She was given Terbutaline. She went on to deliver term. TKRN Nausea and vomiting during 12/12/2016 08/12/2017 Overview: 12/12/2016Patient is complaining of nausea in . She denies vomiting. Advised patient to call/come in if she is unable to keep any food or fluids down in a 24-hour period. Recommended Vitamin B6.TKRN Patient requested diagnostic testing 12/12/2016 01/14/2017 Overview: 12/12/2016Patient desires nuchal ultrasound. TKRN Menorrhagia with regular cycle 05/16/2016 0 04/28/2017 Threatened premature labor, antepartum(644.03) 1 12/04/2007 12/28/2008 Supervision of normal first 04/08/2008 12/28/2008 Routine gynecological examination 10/26/2014 Overview: Dr. Escobedo documented as of this encounter (statuses as of 07/02/2022) [facility] History of Past illness Narrative* Problem Noted Date Resolved Date Request for sterilization 05/09/20172016 Overview: 05/09/17 - patient requests tubal ligation - KJ History of delivery, currently 12/12/2016 08/12/2017 Overview: 01/14/17 - Risks/benefits/alternatives discussed with patient regarding trial of labor and potential for uterine rupture. Risks include but are not limited to maternal hemorrhage, risk of injury to adjacent organs including potential hysterectomy. risks discussed as well, including potential for permanent neurologic injury or . Overall uterine rupture risk is less than 1% after one section. Is a trial of labor contraindicated for this patient? No If no, calculate rate of success using pre-labor factors: http://www.bs.[facility].edu/mfmu/vagbirth.html Predicted chance of vaginal after : 23% Patient's plan for delivery mode: Repeat Mine Doty MD 12/12/2016Pt had a previous C section. She desires a . She will discuss this with Dr Doty at NOB appointment. C section operative report in Suite [address] Doty review. TKRN History of labor 12/12/2016 017 Overview: 12/12/2016Pt has a history of labor with her prior . She was given Terbutaline. She went on to deliver term. TKRN Nausea and vomiting during 12/12/2016 08/12/2017 Overview: 12/12/2016Patient is complaining of nausea in . She denies vomiting. Advised patient to call/come in if she is unable to keep any food or fluids down in a 24-hour period. Recommended Vitamin B6.TKRN Patient requested diagnostic testing 12/12/2016 01/14/2017 Overview: 12/12/2016Patient desires nuchal ultrasound. TKRN Menorrhagia with regular cycle 05/16/2016 0 04/28/2017 Threatened premature labor, antepartum(644.03) 1 12/04/2007 12/28/2008 Supervision of normal first 04/08/2008 12/28/2008 Routine gynecological examination 10/26/2014 Overview: Dr. Escobedo documented as of this encounter (statuses as of 07/02/2022) [facility] History of Past illness Narrative* Problem Noted Date Resolved Date Request for sterilization 05/09/20172016 Overview: 05/09/17 - patient requests tubal ligation - KJ History of delivery, currently 12/12/2016 08/12/2017 Overview: 01/14/17 - Risks/benefits/alternatives discussed with patient regarding trial of labor and potential for uterine rupture. Risks include but are not limited to maternal hemorrhage, risk of injury to adjacent organs including potential hysterectomy. risks discussed as well, including potential for permanent neurologic injury or . Overall uterine rupture risk is less than 1% after one section. Is a trial of labor contraindicated for this patient? No If no, calculate rate of success using pre-labor factors: http://www.[facility].edu/mfmu/vagbirth.html Predicted chance of vaginal after : 23% Patient's plan for delivery mode: Repeat Mine Doty MD 12/12/2016Pt had a previous C section. She desires a . She will discuss this with Dr Doty at NOB appointment. C section operative report in Suite [address] Doty review. TKRN History of labor 12/12/2016 017 Overview: 12/12/2016Pt has a history of labor with her prior . She was given Terbutaline. She went on to deliver term. TKRN Nausea and vomiting during 12/12/2016 08/12/2017 Overview: 12/12/2016Patient is complaining of nausea in . She denies vomiting. Advised patient to call/come in if she is unable to keep any food or fluids down in a 24-hour period. Recommended Vitamin B6.TKRN Patient requested diagnostic testing 12/12/2016 01/14/2017 Overview: 12/12/2016Patient desires nuchal ultrasound. TKRN Menorrhagia with regular cycle 05/16/2016 0 04/28/2017 Threatened premature labor, antepartum(644.03) 1 12/04/2007 12/28/2008 Supervision of normal first 04/08/2008 12/28/2008 Routine gynecological examination 10/26/2014 Overview: Dr. Escobedo documented as of this encounter (statuses as of 08/15/2022) [facility] History of Past illness Narrative* Problem Noted Date Resolved Date Request for sterilization 05/09/20172016 Overview: 05/09/17 - patient requests tubal ligation - KJ History of delivery, currently 12/12/2016 08/12/2017 Overview: 01/14/17 - Risks/benefits/alternatives discussed with patient regarding trial of labor and potential for uterine rupture. Risks include but are not limited to maternal hemorrhage, risk of injury to adjacent organs including potential hysterectomy. risks discussed as well, including potential for permanent neurologic injury or . Overall uterine rupture risk is less than 1% after one section. Is a trial of labor contraindicated for this patient? No If no, calculate rate of success using pre-labor factors: http://www.[facility].edu/mfmu/vagbirth.html Predicted chance of vaginal after : 23% Patient's plan for delivery mode: Repeat Mine Doty MD 12/12/2016Pt had a previous C section. She desires a . She will discuss this with Dr Doty at NOB appointment. C section operative report in Suite [address] Doty review. TKRN History of labor 12/12/2016 017 Overview: 12/12/2016Pt has a history of labor with her prior . She was given Terbutaline. She went on to deliver term. TKRN Nausea and vomiting during 12/12/2016 08/12/2017 Overview: 12/12/2016Patient is complaining of nausea in . She denies vomiting. Advised patient to call/come in if she is unable to keep any food or fluids down in a 24-hour period. Recommended Vitamin B6.TKRN Patient requested diagnostic testing 12/12/2016 01/14/2017 Overview: 12/12/2016Patient desires nuchal ultrasound. TKRN Menorrhagia with regular cycle 05/16/2016 0 04/28/2017 Threatened premature labor, antepartum(644.03) 1 12/04/2007 12/28/2008 Supervision of normal first 04/08/2008 12/28/2008 Routine gynecological examination 10/26/2014 Overview: Dr. Escobedo documented as of this encounter (statuses as of 09/09/2022) [facility] History of Past illness Narrative* Problem Noted Date Resolved Date Request for sterilization 05/09/20172016 Overview: 05/09/17 - patient requests tubal ligation - KJ History of delivery, currently 12/12/2016 08/12/2017 Overview: 01/14/17 - Risks/benefits/alternatives discussed with patient regarding trial of labor and potential for uterine rupture. Risks include but are not limited to maternal hemorrhage, risk of injury to adjacent organs including potential hysterectomy. risks discussed as well, including potential for permanent neurologic injury or . Overall uterine rupture risk is less than 1% after one section. Is a trial of labor contraindicated for this patient? No If no, calculate rate of success using pre-labor factors: http://www.[facility].edu/mfmu/vagbirth.html Predicted chance of vaginal after : 23% Patient's plan for delivery mode: Repeat Mine Doty MD 12/12/2016Pt had a previous C section. She desires a . She will discuss this with Dr Doty at NOB appointment. C section operative report in Suite [address] Doty review. TKRN History of labor 12/12/2016 017 Overview: 12/12/2016Pt has a history of labor with her prior . She was given Terbutaline. She went on to deliver term. TKRN Nausea and vomiting during 12/12/2016 08/12/2017 Overview: 12/12/2016Patient is complaining of nausea in . She denies vomiting. Advised patient to call/come in if she is unable to keep any food or fluids down in a 24-hour period. Recommended Vitamin B6.TKRN Patient requested diagnostic testing 12/12/2016 01/14/2017 Overview: 12/12/2016Patient desires nuchal ultrasound. TKRN Menorrhagia with regular cycle 05/16/2016 0 04/28/2017 Threatened premature labor, antepartum(644.03) 1 12/04/2007 12/28/2008 Supervision of normal first 04/08/2008 12/28/2008 Routine gynecological examination 10/26/2014 Overview: Dr. Escobedo documented as of this encounter (statuses as of 10/24/2022) [facility] History of Past illness Narrative* Problem Noted Date Resolved Date Request for sterilization 05/09/20172016 Overview: 05/09/17 - patient requests tubal ligation - KJ History of delivery, currently 12/12/2016 08/12/2017 Overview: 2/21/17 - Risks/benefits/alternatives discussed with patient regarding trial of labor and potential for uterine rupture. Risks include but are not limited to maternal hemorrhage, risk of injury to adjacent organs including potential hysterectomy. risks discussed as well, including potential for permanent neurologic injury or . Overall uterine rupture risk is less than 1% after one section. Is a trial of labor contraindicated for this patient? No If no, calculate rate of success using pre-labor factors: http://www.[email or web address]/mfmu/vagbirth.html Predicted chance of vaginal after : 23% Patient's plan for delivery mode: Repeat Mine Doty MD 12/12/2016Pt had a previous C section. She desires a . She will discuss this with Dr Doty at NOB appointment. C section operative report in Suite [address] Doty review. TKRN History of labor 12/12/2016 017 Overview: 12/12/2016Pt has a history of labor with her prior . She was given Terbutaline. She went on to deliver term. TKRN Nausea and vomiting during 12/12/2016 08/12/2017 Overview: 12/12/2016Patient is complaining of nausea in . She denies vomiting. Advised patient to call/come in if she is unable to keep any food or fluids down in a 24-hour period. Recommended Vitamin B6.TKRN Patient requested diagnostic testing 12/12/2016 01/14/2017 Overview: 12/12/2016Patient desires nuchal ultrasound. TKRN Menorrhagia with regular cycle 05/16/2016 0 04/28/2017 Threatened premature labor, antepartum(644.03) 1 12/04/2007 12/28/2008 Supervision of normal first 04/08/2008 12/28/2008 Routine gynecological examination 10/26/2014 Overview: Dr. Escobedo documented as of this encounter (statuses as of 11/08/2022) [facility] History of Past illness Narrative* Problem Noted Date Resolved Date Request for sterilization 05/09/20172016 Overview: 05/09/17 - patient requests tubal ligation - KJ History of delivery, currently 12/12/2016 08/12/2017 Overview: 01/14/17 - Risks/benefits/alternatives discussed with patient regarding trial of labor and potential for uterine rupture. Risks include but are not limited to maternal hemorrhage, risk of injury to adjacent organs including potential hysterectomy. risks discussed as well, including potential for permanent neurologic injury or . Overall uterine rupture risk is less than 1% after one section. Is a trial of labor contraindicated for this patient? No If no, calculate rate of success using pre-labor factors: http://www.bs.[facility].edu/mfmu/vagbirth.html Predicted chance of vaginal after : 23% Patient's plan for delivery mode: Repeat Mine Doty MD 12/12/2016Pt had a previous C section. She desires a . She will discuss this with Dr Doty at NOB appointment. C section operative report in Suite [address] Doty review. TKRN History of labor 12/12/2016 017 Overview: 12/12/2016Pt has a history of labor with her prior . She was given Terbutaline. She went on to deliver term. TKRN Nausea and vomiting during 12/12/2016 08/12/2017 Overview: 12/12/2016Patient is complaining of nausea in . She denies vomiting. Advised patient to call/come in if she is unable to keep any food or fluids down in a 24-hour period. Recommended Vitamin B6.TKRN Patient requested diagnostic testing 12/12/2016 01/14/2017 Overview: 12/12/2016Patient desires nuchal ultrasound. TKRN Menorrhagia with regular cycle 05/16/2016 0 04/28/2017 Threatened premature labor, antepartum(644.03) 1 12/04/2007 12/28/2008 Supervision of normal first 04/08/2008 12/28/2008 Routine gynecological examination 10/26/2014 Overview: Dr. Escobedo documented as of this encounter (statuses as of 11/24/2022) [facility] History of Past illness Narrative* Problem Noted Date Diagnosed Date Resolved Date Request for sterilization 05/09/2017 Overview: 05/09/17 - patient requests tubal ligation - KJ History of delivery , currently 12/12/2016 08/12/2017 Overview: 01/14/17 - Risks/benefits/alternatives discussed with patient regarding trial of labor and potential for uterine rupture. Risks include but are not limited to maternal hemorrhage, risk of injury to adjacent organs including potential hysterectomy. risks discussed as well, including potential for permanent neurologic injury or . Overall uterine rupture risk is less than 1% after one section. Is a trial of labor contraindicated for this patient? No If no, calculate rate of success using pre-labor factors: http://www.bs.[facility]/mfmu/vagbirth.html Predicted chance of vaginal after : 23% Patient's plan for delivery mode: Repeat Mine Doty MD 12/12/2016Pt had a previous C section. She desires a . She will discuss this with Dr Doty at NOB appointment. C section operative report in Suite [address] Doty review. TKRN History of labor 12/12/2016 Overview: 12/12/2016Pt has a history of labor with her prior . She was given Terbutaline. She went on to deliver term. TKRN Nausea and vomiting during 12/12/2016 08/12/2017 Overview: 12/12/2016Patient is complaining of nausea in . She denies vomiting. Advised patient to call/come in if she is unable to keep any food or fluids down in a 24-hour period. Recommended Vitamin B6.TKRN Patient requested diagnostic testing 12/12/2016 01/14/2017 Overview: 12/12/2016Patient desires nuchal ultrasound. TKRN Menorrhagia with regular cycle 05/16/2016 04/28/2017 Threatened premature labor, antepartum(644.03) 10/04/2008 12/28/2008 Supervision of normal first 04/08/2008 12/28/2008 Routine gynecological examination 10/26/2014 Overview: Dr. Escobedo documented as of this encounter (statuses as of 09/16/2023) [facility] History of Past illness Narrative* Problem Noted Date Diagnosed Date Resolved Date Request for sterilization 05/09/2017 Overview: 05/09/17 - patient requests tubal ligation - KJ History of delivery , currently 12/12/2016 08/12/2017 Overview: 01/14/17 - Risks/benefits/alternatives discussed with patient regarding trial of labor and potential for uterine rupture. Risks include but are not limited to maternal hemorrhage, risk of injury to adjacent organs including potential hysterectomy. risks discussed as well, including potential for permanent neurologic injury or . Overall uterine rupture risk is less than 1% after one section. Is a trial of labor contraindicated for this patient? No If no, calculate rate of success using pre-labor factors: http://www.bs.[facility].edu/mfmu/vagbirth.html Predicted chance of vaginal after : 23% Patient's plan for delivery mode: Repeat Mine Doty MD 12/12/2016Pt had a previous C section. She desires a . She will discuss this with Dr Doty at NOB appointment. C section operative report in Suite [address] Doty review. TKRN History of labor 12/12/2016 Overview: 12/12/2016Pt has a history of labor with her prior . She was given Terbutaline. She went on to deliver term. TKRN Nausea and vomiting during 12/12/2016 08/12/2017 Overview: 12/12/2016Patient is complaining of nausea in . She denies vomiting. Advised patient to call/come in if she is unable to keep any food or fluids down in a 24-hour period. Recommended Vitamin B6.TKRN Patient requested diagnostic testing 12/12/2016 01/14/2017 Overview: 12/12/2016Patient desires nuchal ultrasound. TKRN Menorrhagia with regular cycle 05/16/2016 04/28/2017 Threatened premature labor, antepartum(644.03) 10/04/2008 12/28/2008 Supervision of normal first 04/08/2008 12/28/2008 Routine gynecological examination 10/26/2014 Overview: Dr. Escobedo documented as of this encounter (statuses as of 09/18/2023) [facility] History of Past illness Narrative* Problem Noted Date Diagnosed Date Resolved Date Request for sterilization 05/09/2017 Overview: 05/09/17 - patient requests tubal ligation - KJ History of delivery , currently 12/12/2016 08/12/2017 Overview: 01/14/17 - Risks/benefits/alternatives discussed with patient regarding trial of labor and potential for uterine rupture. Risks include but are not limited to maternal hemorrhage, risk of injury to adjacent organs including potential hysterectomy. risks discussed as well, including potential for permanent neurologic injury or . Overall uterine rupture risk is less than 1% after one section. Is a trial of labor contraindicated for this patient? No If no, calculate rate of success using pre-labor factors: http://www.[facility].edu/mfmu/vagbirth.html Predicted chance of vaginal after : 23% Patient's plan for delivery mode: Repeat Mine Doty MD 12/12/2016Pt had a previous C section. She desires a . She will discuss this with Dr Doty at NOB appointment. C section operative report in Suite [address] Doty review. TKRN History of labor 12/12/2016 Overview: 12/12/2016Pt has a history of labor with her prior . She was given Terbutaline. She went on to deliver term. TKRN Nausea and vomiting during 12/12/2016 08/12/2017 Overview: 12/12/2016Patient is complaining of nausea in . She denies vomiting. Advised patient to call/come in if she is unable to keep any food or fluids down in a 24-hour period. Recommended Vitamin B6.TKRN Patient requested diagnostic testing 12/12/2016 01/14/2017 Overview: 12/12/2016Patient desires nuchal ultrasound. TKRN Menorrhagia with regular cycle 05/16/2016 04/28/2017 Threatened premature labor, antepartum(644.03) 10/04/2008 12/28/2008 Supervision of normal first 04/08/2008 12/28/2008 Routine gynecological examination 10/26/2014 Overview: Dr. Escobedo documented as of this encounter (statuses as of 09/28/2023) [facility] History of Past illness Narrative* Problem Noted Date Diagnosed Date Resolved Date Request for sterilization 05/09/2017 Overview: 05/09/17 - patient requests tubal ligation - KJ History of delivery , currently 12/12/2016 08/12/2017 Overview: 01/14/17 - Risks/benefits/alternatives discussed with patient regarding trial of labor and potential for uterine rupture. Risks include but are not limited to maternal hemorrhage, risk of injury to adjacent organs including potential hysterectomy. risks discussed as well, including potential for permanent neurologic injury or . Overall uterine rupture risk is less than 1% after one section. Is a trial of labor contraindicated for this patient? No If no, calculate rate of success using pre-labor factors: http://www.[facility].edu/mfmu/vagbirth.html Predicted chance of vaginal after : 23% Patient's plan for delivery mode: Repeat Mine Doty MD 12/12/2016Pt had a previous C section. She desires a . She will discuss this with Dr Doty at NOB appointment. C section operative report in Suite [address] Doty review. TKRN History of labor 12/12/2016 Overview: 12/12/2016Pt has a history of labor with her prior . She was given Terbutaline. She went on to deliver term. TKRN Nausea and vomiting during 12/12/2016 08/12/2017 Overview: 12/12/2016Patient is complaining of nausea in . She denies vomiting. Advised patient to call/come in if she is unable to keep any food or fluids down in a 24-hour period. Recommended Vitamin B6.TKRN Patient requested diagnostic testing 12/12/2016 01/14/2017 Overview: 12/12/2016Patient desires nuchal ultrasound. TKRN Menorrhagia with regular cycle 05/16/2016 04/28/2017 Threatened premature labor, antepartum(644.03) 10/04/2008 12/28/2008 Supervision of normal first 04/08/2008 12/28/2008 Routine gynecological examination 10/26/2014 Overview: Dr. Escobedo documented as of this encounter (statuses as of 10/09/2023) [facility] History of Past illness Narrative* Problem Noted Date Diagnosed Date Resolved Date Request for sterilization 05/09/2017 Overview: 05/09/17 - patient requests tubal ligation - KJ History of delivery , currently 12/12/2016 08/12/2017 Overview: 01/14/17 - Risks/benefits/alternatives discussed with patient regarding trial of labor and potential for uterine rupture. Risks include but are not limited to maternal hemorrhage, risk of injury to adjacent organs including potential hysterectomy. risks discussed as well, including potential for permanent neurologic injury or . Overall uterine rupture risk is less than 1% after one section. Is a trial of labor contraindicated for this patient? No If no, calculate rate of success using pre-labor factors: http://www.bs.[email or web address]/mfmu/vagbirth.html Predicted chance of vaginal after : 23% Patient's plan for delivery mode: Repeat Mine Doty MD 12/12/2016Pt had a previous C section. She desires a . She will discuss this with Dr Doty at NOB appointment. C section operative report in Suite [address] Doty review. TKRN History of labor 12/12/2016 Overview: 12/12/2016Pt has a history of labor with her prior . She was given Terbutaline. She went on to deliver term. TKRN Nausea and vomiting during 12/12/2016 08/12/2017 Overview: 12/12/2016Patient is complaining of nausea in . She denies vomiting. Advised patient to call/come in if she is unable to keep any food or fluids down in a 24-hour period. Recommended Vitamin B6.TKRN Patient requested diagnostic testing 12/12/2016 01/14/2017 Overview: 12/12/2016Patient desires nuchal ultrasound. TKRN Menorrhagia with regular cycle 05/16/2016 04/28/2017 Threatened premature labor, antepartum(644.03) 10/04/2008 12/28/2008 Supervision of normal first 04/08/2008 12/28/2008 Routine gynecological examination 10/26/2014 Overview: Dr. Escobedo documented as of this encounter (statuses as of 10/09/2023) [facility] History of Past illness Narrative* Problem Noted Date Diagnosed Date Resolved Date Request for sterilization 05/09/2017 Overview: 05/09/17 - patient requests tubal ligation - KJ History of delivery , currently 12/12/2016 08/12/2017 Overview: 01/14/17 - Risks/benefits/alternatives discussed with patient regarding trial of labor and potential for uterine rupture. Risks include but are not limited to maternal hemorrhage, risk of injury to adjacent organs including potential hysterectomy. risks discussed as well, including potential for permanent neurologic injury or . Overall uterine rupture risk is less than 1% after one section. Is a trial of labor contraindicated for this patient? No If no, calculate rate of success using pre-labor factors: http://www.[email or web address]/mu/vagbirth.html Predicted chance of vaginal after : 23% Patient's plan for delivery mode: Repeat Mine Doty MD 12/12/2016Pt had a previous C section. She desires a . She will discuss this with Dr Doty at NOB appointment. C section operative report in Suite [address] Doty review. TKRN History of labor 12/12/2016 Overview: 12/12/2016Pt has a history of labor with her prior . She was given Terbutaline. She went on to deliver term. TKRN Nausea and vomiting during 12/12/2016 08/12/2017 Overview: 12/12/2016Patient is complaining of nausea in . She denies vomiting. Advised patient to call/come in if she is unable to keep any food or fluids down in a 24-hour period. Recommended Vitamin B6.TKRN Patient requested diagnostic testing 12/12/2016 01/14/2017 Overview: 12/12/2016Patient desires nuchal ultrasound. TKRN Menorrhagia with regular cycle 05/16/2016 04/28/2017 Threatened premature labor, antepartum(644.03) 10/04/2008 12/28/2008 Supervision of normal first 04/08/2008 12/28/2008 Routine gynecological examination 10/26/2014 Overview: Dr. Escobedo documented as of this encounter (statuses as of 10/09/2023) [facility] Pelvic pain in female- Primary Unspecified symptom associated with female genital organs [facility] Diagnosis Pelvic pain in female Unspecified symptom associated with female genital organs [facility] Diagnosis GERD without esophagitis- Primary Esophageal reflux Anxiety with depression Elevated hemoglobin A1c Other abnormal blood chemistry Pseudotumor cerebri Benign intracranial hypertension Inflammatory polyarthropathy (HCC) Unspecified inflammatory polyarthropathy Acute pain of both hips Vitamin D deficiency Unspecified vitamin D deficiency Morbid obesity (HCC) Morbid obesity Low iron Iron deficiency anemia, unspecified Headaches Heat intolerance Unspecified effects of heat and light Encounter for screening for cardiovascular disorders Screening for other and unspecified cardiovascular conditions Medication management Encounter for long-term (current) use of other medications [facility]* Diagnosis Pseudotumor cerebri Benign intracranial hypertension Chronic intractable headache, unspecified headache type [facility] Diagnosis Pseudotumor cerebri- Primary Benign intracranial hypertension [facility] Diagnosis Chronic intractable headache, unspecified headache type- Primary Pseudotumor Pseudotumor cerebri Benign intracranial hypertension [facility]* Diagnosis Chronic intractable headache, unspecified headache type Pseudotumor [facility] Diagnosis Pseudotumor cerebri Benign intracranial hypertension Chronic intractable headache, unspecified headache type [facility] Diagnosis Pseudotumor cerebri Benign intracranial hypertension Chronic intractable headache, unspecified headache type [facility] Diagnosis Chronic intractable headache, unspecified headache type- Primary Pseudotumor cerebri Benign intracranial hypertension Sleep apnea-like behavior [facility]* Diagnosis Well adult exam- Primary Routine general medical examination at a health care facility Anxiety with depression GERD without esophagitis Esophageal reflux Elevated hemoglobin A1c Other abnormal blood chemistry Inflammatory polyarthropathy (HCC) Unspecified inflammatory polyarthropathy Pseudotumor cerebri Benign intracranial hypertension MVP (mitral valve prolapse) Mitral valve disorders Acute otitis externa of right ear, unspecified type Acute otitis media, right Unspecified otitis media Iron deficiency anemia, unspecified iron deficiency anemia type documented in this encounter [facility] note* Diagnosis Onset Date Resolution Status BPPV (benign paroxysmal positional vertigo) acute [facility] Work Phone: Evaluation note* Diagnosis Abnormal mammogram- Primary Abnormal mammogram, unspecified documented in this encounter [facility] note* Diagnosis Encounter for screening mammogram for breast cancer documented in this encounter [facility] note* Diagnosis Abnormal mammogram Abnormal mammogram, unspecified documented in this encounter [facility] note* Diagnosis Abnormal mammogram Abnormal mammogram, unspecified documented in this encounter [facility] note* Diagnosis Mass of left breast, unspecified quadrant- Primary Abnormal mammogram Abnormal mammogram, unspecified documented in this encounter [facility] note* Diagnosis Mass of left breast, unspecified quadrant- Primary documented in this encounter [facility] note* Diagnosis Mass of left breast, unspecified quadrant Abnormal mammogram Abnormal mammogram, unspecified documented in this encounter [facility] note* Diagnosis Otalgia, right ear- Primary Fever, unspecified fever cause documented in this encounter [facility] note* Diagnosis Breast cyst, left- Primary documented in this encounter [facility] note* Diagnosis Chronic right hip pain- Primary Pain in joint, pelvic region and thigh documented in this encounter [facility] note* Diagnosis Chronic right hip pain Pain in joint, pelvic region and thigh documented in this encounter [facility] note* Diagnosis Arthritis of right hip- Primary documented in this encounter [facility] note* Diagnosis Primary osteoarthritis of right hip- Primary Primary localized osteoarthrosis, pelvic region and thigh Chronic right hip pain Pain in joint, pelvic region and thigh documented in this encounter [facility] note* Diagnosis Abnormal mammogram- Primary Abnormal mammogram, unspecified Abnormal uterine bleeding (AUB) Malaise and fatigue Other malaise and fatigue documented in this encounter [facility] note* Diagnosis Abnormal uterine bleeding (AUB) documented in this encounter [facility] note* Diagnosis Well adult exam- Primary Routine general medical examination at a health care facility Vitamin D deficiency Unspecified vitamin D deficiency Low iron Iron deficiency anemia, unspecified Morbid obesity (HCC) Morbid obesity Inflammatory polyarthropathy (HCC) Unspecified inflammatory polyarthropathy Elevated hemoglobin A1c Other abnormal blood chemistry MVP (mitral valve prolapse) Mitral valve disorders Anxiety with depression Medication management Encounter for long-term (current) use of other medications Chronic fatigue Other malaise and fatigue Iron deficiency anemia, unspecified iron deficiency anemia type Encounter for lipid screening for cardiovascular disease Screening for lipoid disorders Weight loss Loss of weight Pseudotumor cerebri Benign intracranial hypertension documented in this encounter [facility] note* Diagnosis Encounter for screening for malignant neoplasm of cervix- Primary Screening for malignant neoplasm of the cervix Special screening examination for human papillomavirus (HPV) Encounter for gynecological examination (general) (routine) without abnormal findings Iron deficiency anemia, unspecified iron deficiency anemia type documented in this encounter [facility] note* Diagnosis Iron deficiency anemia due to chronic blood loss- Primary Iron deficiency anemia secondary to blood loss (chronic) Low iron Iron deficiency anemia, unspecified documented in this encounter [facility] note* Diagnosis Iron deficiency anemia due to chronic blood loss- Primary Iron deficiency anemia secondary to blood loss (chronic) Iron deficiency anemia, unspecified iron deficiency anemia type documented in this encounter [facility] note* Diagnosis Iron deficiency anemia due to chronic blood loss- Primary Iron deficiency anemia secondary to blood loss (chronic) Low iron Iron deficiency anemia, unspecified Chronic intractable headache, unspecified headache type- Primary Pseudotumor cerebri Benign intracranial hypertension documented in this encounter [facility] note* Diagnosis IIH (idiopathic intracranial hypertension)- Primary Benign intracranial hypertension Chronic intractable headache, unspecified headache type documented in this encounter [facility] noteNo assessment information [facility] Work Phone: Evaluation [facility]* Diagnosis Iron deficiency anemia due to chronic blood loss- Primary Iron deficiency anemia secondary to blood loss (chronic) Low iron Iron deficiency anemia, unspecified documented in this encounter [facility] note* Diagnosis Iron deficiency anemia due to chronic blood loss- Primary Iron deficiency anemia secondary to blood loss (chronic) Low iron Iron deficiency anemia, unspecified documented in this encounter [facility] note* Diagnosis Iron deficiency anemia due to chronic blood loss- Primary Iron deficiency anemia secondary to blood loss (chronic) Menorrhagia with regular cycle Excessive or frequent menstruation Fibroids, subserous Subserous leiomyoma of uterus Deep dyspareunia Chronic pelvic pain in female Unspecified symptom associated with female genital organs * Assessment & Plan Note - Tim Yip MD - 02/24/2025 11:44 AM EDT Associated Problem(s): Iron deficiency anemia due to chronic blood loss * Assessment & Plan Note - Tim Yip MD - 02/24/2025 11:44 AM EDT Associated Problem(s): Fibroids, subserous * Assessment & Plan Note - Tim Yip MD - 02/24/2025 11:44 AM EDT Associated Problem(s): Deep dyspareunia * Assessment & Plan Note - Tim Yip MD - 02/24/2025 11:44 AM EDT Associated Problem(s): Chronic pelvic pain in female documented in this encounter [facility] note* Diagnosis Iron deficiency anemia due to chronic blood loss- Primary Iron deficiency anemia secondary to blood loss (chronic) Menorrhagia with regular cycle Excessive or frequent menstruation Fibroids, subserous Subserous leiomyoma of uterus Deep dyspareunia Chronic pelvic pain in female Unspecified symptom associated with female genital organs Iron deficiency anemia due to chronic blood loss- Primary Iron deficiency anemia secondary to blood loss (chronic) Low iron Iron deficiency anemia, unspecified documented in this encounter [facility] note* Diagnosis Iron deficiency anemia due to chronic blood loss- Primary Iron deficiency anemia secondary to blood loss (chronic) Menorrhagia with regular cycle Excessive or frequent menstruation Fibroids, subserous Subserous leiomyoma of uterus Deep dyspareunia Chronic pelvic pain in female Unspecified symptom associated with female genital organs Acute otitis media, left- Primary Unspecified otitis media documented in this encounter [facility] note* Diagnosis Iron deficiency anemia due to chronic blood loss- Primary Iron deficiency anemia secondary to blood loss (chronic) Menorrhagia with regular cycle Excessive or frequent menstruation Fibroids, subserous Subserous leiomyoma of uterus Deep dyspareunia Chronic pelvic pain in female Unspecified symptom associated with female genital organs Acute otitis media, bilateral- Primary Unspecified otitis media Right ear pain Otalgia, unspecified Iron deficiency anemia due to chronic blood loss Iron deficiency anemia secondary to blood loss (chronic) Pseudotumor cerebri Benign intracranial hypertension Vitamin D deficiency Unspecified vitamin D deficiency Inflammatory polyarthropathy (HCC) Unspecified inflammatory polyarthropathy Fibroids, subserous Subserous leiomyoma of uterus [facility] Diagnosis Iron deficiency anemia due to chronic blood loss- Primary Iron deficiency anemia secondary to blood loss (chronic) Menorrhagia with regular cycle Excessive or frequent menstruation Fibroids, subserous Subserous leiomyoma of uterus Deep dyspareunia Chronic pelvic pain in female Unspecified symptom associated with female genital organs Abnormal MRI- Primary Other nonspecific (abnormal) findings on radiological and other examinations of body structure IIH (idiopathic intracranial hypertension) Benign intracranial hypertension [facility] Diagnosis Iron deficiency anemia due to chronic blood loss- Primary Iron deficiency anemia secondary to blood loss (chronic) Menorrhagia with regular cycle Excessive or frequent menstruation Fibroids, subserous Subserous leiomyoma of uterus Deep dyspareunia Chronic pelvic pain in female Unspecified symptom associated with female genital organs IIH (idiopathic intracranial hypertension)- Primary Benign intracranial hypertension [facility] Diagnosis Iron deficiency anemia due to chronic blood loss- Primary Iron deficiency anemia secondary to blood loss (chronic) Menorrhagia with regular cycle Excessive or frequent menstruation Fibroids, subserous Subserous leiomyoma of uterus Deep dyspareunia Chronic pelvic pain in female Unspecified symptom associated with female genital organs Primary osteoarthritis of right hip- Primary Primary localized osteoarthrosis, pelvic region and thigh Iron deficiency anemia due to chronic blood loss Iron deficiency anemia secondary to blood loss (chronic) Low iron Iron deficiency anemia, unspecified [facility] Diagnosis Iron deficiency anemia due to chronic blood loss- Primary Iron deficiency anemia secondary to blood loss (chronic) Menorrhagia with regular cycle Excessive or frequent menstruation Fibroids, subserous Subserous leiomyoma of uterus Deep dyspareunia Chronic pelvic pain in female Unspecified symptom associated with female genital organs IIH (idiopathic intracranial hypertension)- Primary Benign intracranial hypertension Abnormal MRI Other nonspecific (abnormal) findings on radiological and other examinations of body structure Pulsatile tinnitus, left ear 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 Secondary localized osteoarthrosis, pelvic region and thigh Class 3 severe obesity with serious comorbidity and body mass index (BMI) of 40.0 to 44.9 in adult, unspecified obesity type IIH (idiopathic intracranial hypertension) Benign intracranial hypertension [facility]* Diagnosis Iron deficiency anemia due to chronic blood loss- Primary Iron deficiency anemia secondary to blood loss (chronic) Menorrhagia with regular cycle Excessive or frequent menstruation Fibroids, subserous Subserous leiomyoma of uterus Deep dyspareunia Chronic pelvic pain in female Unspecified symptom associated with female genital organs Menorrhagia with regular cycle- Primary Excessive or frequent menstruation Iron deficiency anemia due to chronic blood loss Iron deficiency anemia secondary to blood loss (chronic) Fibroids, subserous Subserous leiomyoma of uterus Deep dyspareunia Low iron- Primary Iron deficiency anemia, unspecified Iron deficiency anemia, unspecified iron deficiency anemia type Iron deficiency anemia due to chronic blood loss Iron deficiency anemia secondary to blood loss (chronic) [facility]* Diagnosis Iron deficiency anemia due to chronic blood loss- Primary Iron deficiency anemia secondary to blood loss (chronic) Menorrhagia with regular cycle Excessive or frequent menstruation Fibroids, subserous Subserous leiomyoma of uterus Deep dyspareunia Chronic pelvic pain in female Unspecified symptom associated with female genital organs Menorrhagia with regular cycle- Primary Excessive or frequent menstruation Iron deficiency anemia due to chronic blood loss Iron deficiency anemia secondary to blood loss (chronic) Fibroids, subserous Subserous leiomyoma of uterus Deep dyspareunia * Assessment & Plan Note - Tim Yip MD - 04/26/2025 12:09 PM EDT Associated Problem(s): Iron deficiency anemia due to chronic blood loss cont. aygestin to control bleeding s/p IV fe Orders: SURGICAL PATHOLOGY * Assessment & Plan Note - Tim Yip MD - 04/26/2025 12:09 PM EDT Associated Problem(s): Fibroids, subserous Orders: SURGICAL PATHOLOGY documented in this encounter [facility] note* Diagnosis Iron deficiency anemia due to chronic blood loss- Primary Iron deficiency anemia secondary to blood loss (chronic) Menorrhagia with regular cycle Excessive or frequent menstruation Fibroids, subserous Subserous leiomyoma of uterus Deep dyspareunia Chronic pelvic pain in female Unspecified symptom associated with female genital organs Menorrhagia with regular cycle- Primary Excessive or frequent menstruation Iron deficiency anemia due to chronic blood loss Iron deficiency anemia secondary to blood loss (chronic) Fibroids, subserous Subserous leiomyoma of uterus Deep dyspareunia Abnormal mammogram Abnormal mammogram, unspecified documented in this encounter [facility] note* Diagnosis Iron deficiency anemia due to chronic blood loss- Primary Iron deficiency anemia secondary to blood loss (chronic) Menorrhagia with regular cycle Excessive or frequent menstruation Fibroids, subserous Subserous leiomyoma of uterus Deep dyspareunia Chronic pelvic pain in female Unspecified symptom associated with female genital organs Menorrhagia with regular cycle- Primary Excessive or frequent menstruation Iron deficiency anemia due to chronic blood loss Iron deficiency anemia secondary to blood loss (chronic) Fibroids, subserous Subserous leiomyoma of uterus Deep dyspareunia Abnormal mammogram Abnormal mammogram, unspecified documented in this encounter [facility] for referral (narrative)* Diagnostic Procedure Only (Routine) - Pending Review Specialty Diagnoses / Procedures Referred By Brien scales Referred To Contact US IMAGING Diagnoses Pelvic pain in female Procedures US FEMALE PELVIS TRANSABD LTD US PELVIC NONOBSTETRIC IMAGE [facility] LIMITED/F/U Mine Doty MD [address] [place] [address] Us Imaging Referral ID Status Reason Start Date Expiration Date Visits Requested Visits Authorized [id number] Pending Review Auto-Generat ed Referral 02/14/2022 03/16/2023 1 1 * Diagnostic Procedure Only (Routine) - Authorized Specialty Diagnoses / Procedures Referred By Brien scales Referred To Contact US IMAGING Diagnoses Pelvic pain in female Procedures US FEMALE PELVIS TRANSVAG US TRANSVAGINAL Mine Doty MD [address] [place] [address] Us Imaging Referral ID Status Reason Start Date Expiration Date Visits Requested Visits Authorized [id number] Authorized Auto-Generat ed Referral 02/14/2022 03/16/2023 1 1 * Diagnostic Procedure Only (Routine) - Pending Review Specialty Diagnoses / Procedures Referred By Contac t Referred To Contact [facility] Diagnoses Pelvic pain in female Procedures PELVIC US WHI US PELVIC NONOBSTETRIC REAL-TIME IMAGE COMPLETE Mine Doty MD [address] [place] [address] [facility] [address] [place] [address] Referral ID Status Reason Start Date Expiration Date Visits Requested Visits Authorized [id number] Pending Review Auto-Generat ed Referral 02/14/2022 02/14/2023 1 1 [facility] for referral (narrative)* Diagnostic Procedure Only (Routine) - Closed Specialty Diagnoses / Procedures Referred By Contac t Referred To Contact US IMAGING Diagnoses Pelvic pain in female Procedures US FEMALE PELVIS TRANSABD LTD US PELVIC NONOBSTETRIC IMAGE [facility] LIMITED/F/U Mine Doty MD [address] [place] [address] Us Imaging Referral ID Status Reason Start Date Expiration Date V isits Requested Visits Authorized [id number] Closed Auto-Generate d Referral 02/15/2022 03/17/2022 1 1 * Diagnostic Procedure Only (Routine) - Closed Specialty Diagnoses / Procedures Referred By Contac t Referred To Contact US IMAGING Diagnoses Pelvic pain in female Procedures US FEMALE PELVIS TRANSVAG US TRANSVAGINAL Mine Doty MD [address] [place] [address] Us Imaging Referral ID Status Reason Start Date Expiration Date V isits Requested Visits Authorized [id number] Closed Auto-Generate d Referral 02/14/2022 03/16/2023 1 1 [facility] for referral (narrative)* Diagnostic Procedure Only (Routine) - Authorized Specialty Diagnoses / Procedures Referred By Brien t Referred To Contact BR IMAGING Diagnoses Abnormal mammogram Procedures US BREAST LTD LEFT US BREAST UNI REAL TIME WITH IMAGE LIMITED Sanket Cruz MD [address] [place] [address] Br Imaging [address] [place] [address] Referral ID Status Reason Start Date Expiration Date Visits Requested Visits Authorized [id number] Authorized Auto-Generat ed Referral 3 10/15/2024 1 1 * Diagnostic Procedure Only (Routine) - Authorized Specialty Diagnoses / Procedures Referred By Brien t Referred To Contact BR IMAGING Diagnoses Abnormal mammogram Procedures SARATH DIAGNOSTIC LEFT DIAGNOSTIC MAMMOGRAPHY COMPUTER-AIDED DETCJ UNI Sanket Cruz MD [address] [place] [address] [facility] [address] [address] Referral ID Status Reason Start Date Expiration Date Visits Requested Visits Authorized [id number] Authorized Auto-Generat ed Referral 3 10/15/2024 1 1 [facility] for referral (narrative)* Diagnostic Procedure Only (Routine) - Closed Specialty Diagnoses / Procedures Referred By Brien t Referred To Contact BR IMAGING Diagnoses Encounter for screening mammogram for breast cancer Procedures SARATH SCREENING SCREENING MAMMOGRAPHY BI 2-VIEW BREAST INC CAD Sanket Cruz MD [address] [place] [address] [facility] [address] [place] [address] Referral ID Status Reason Start Date Expiration Date V isits Requested Visits Authorized [id number] Closed Auto-Generate d Referral 05/28/2023 06/26/2024 1 1 [facility] for referral (narrative)* Diagnostic Procedure Only (Routine) - Closed Specialty Diagnoses / Procedures Referred By Brien scales Referred To Contact BR IMAGING Diagnoses Abnormal mammogram Procedures US BREAST LTD LEFT US BREAST UNI REAL TIME WITH IMAGE LIMITED Sanket Cruz MD [address] [place] [address] [facility] [address] [address] Referral ID Status Reason Start Date Expiration Date V isits Requested Visits Authorized [id number] Closed Auto-Generate d Referral 09/16/2023 10/15/2024 1 1 [facility] for referral (narrative)* Diagnostic Procedure Only (Routine) - Authorized Specialty Diagnoses / Procedures Referred By Brien scales Referred To Contact BR IMAGING Diagnoses Mass of left breast, unspecified quadrant Abnormal mammogram Procedures US BREAST LTD LEFT US BREAST UNI REAL TIME WITH IMAGE LIMITED Sanekt Cruz MD [address] [place] [address] [facility] [address] [address] Referral ID Status Reason Start Date Expiration Date Visits Requested Visits Authorized [id number] Authorized Auto-Generat ed Referral 04/08/2024 11/07/2024 1 1 * Diagnostic Procedure Only (Routine) - Authorized Specialty Diagnoses / Procedures Referred By Brien scales Referred To Contact BR IMAGING Diagnoses Mass of left breast, unspecified quadrant Abnormal mammogram Procedures SARATH DIAGNOSTIC LEFT DIAGNOSTIC MAMMOGRAPHY COMPUTER-AIDED DETCJ UNI Sanket Cruz MD [address] [place] [address] [facility] [address] [address] Referral ID Status Reason Start Date Expiration Date Visits Requested Visits Authorized [id number] Authorized Auto-Generat ed Referral 04/08/2024 11/07/2024 1 1 [facility] for referral (narrative)* Diagnostic Procedure Only (Routine) - Pending Review Specialty Diagnoses / Procedures Referred By Brien scales Referred To Contact BR IMAGING Diagnoses Mass of left breast, unspecified quadrant Procedures US BREAST LTD LEFT US BREAST UNI REAL TIME WITH IMAGE LIMITED Funmilayo Davies APRN.[employer] [address] [place], [place] [address] [facility] [address] [place] [address] Referral ID Status Reason Start Date Expiration Date Visits Requested Visits Authorized [id number] Pending Review Auto-Generat ed Referral 4 05/13/2025 1 1 * Diagnostic Procedure Only (Routine) - Pending Review Specialty Diagnoses / Procedures Referred By Brien scales Referred To Contact BR IMAGING Diagnoses Mass of left breast, unspecified quadrant Procedures SARATH DIAGNOSTIC BILATERAL DIAGNOSTIC MAMMOGRAPHY COMPUTER-AIDED DETCJ BI Funmilayo Davies APRN.[employer] PR[employer] [address] [place] [address] [facility] [address] [place] [address] Referral ID Status Reason Start Date Expiration Date Visits Requested Visits Authorized [id number] Pending Review Auto-Generat ed Referral 4 05/13/2025 1 1 [facility] for referral (narrative)* Diagnostic Procedure Only (Routine) - New Request Specialty Diagnoses / Procedures Referred By Brien scales Referred To Contact BR IMAGING Diagnoses Breast cyst, left Procedures SARATH SCREENING W DIANN SCREENING DIGITAL BREAST TOMOSYNTHESIS BI SCREENING MAMMOGRAPHY BI 2-VIEW BREAST INC CAD Funmilayo Davies APRN.[employer] PR[employer] [address] [place] [address] [facility] [address] [place] [address] Referral ID Status Reason Start Date Expiration Date Visits Requested Visits Authorized [id number] New Request Auto-Generat ed Referral 4 12/04/2025 1 1 [facility] for referral (narrative)No reason for referral information availableWThe [facility] Work Phone: Reason for visit Narrative* Diagnostic Procedure Only (Routine) - Closed Specialty Diagnoses / Procedures Referred By Brien t Referred To Contact US IMAGING Diagnoses Pelvic pain in female Procedures US FEMALE PELVIS TRANSVAG US TRANSVAGINAL Mine Doty MD [address] [place] [address] Us Imaging Referral ID Status Reason Start Date Expiration Date V isits Requested Visits Authorized [id number] Closed Auto-Generate d Referral 02/14/2022 03/16/2023 1 1 [facility] for visit Narrative* Auth/Cert Specialty Diagnoses / Procedures [facility] Referred To Contact [facility] Diagnoses Pseudotumor cerebri Procedures DIAGNOSTIC LUMBAR SPINAL PUNCTURE SPINAL PUNCTURE LUMBAR DIAGNOSTIC [facility] [address] [place] [address] Referral ID Status Reason Start Date Expiration Date Visits Re quested Visits Authorized [id number] 1 1 [facility] for visit Narrative* Diagnostic Procedure Only (Routine) - Closed Specialty Diagnoses / Procedures [facility] Referred To Contact BR IM[facility] Diagnoses Encounter for screening mammogram for breast cancer Procedures SARATH SCREENING SCREENING MAMMOGRAPHY BI 2-VIEW BREAST INC CAD Sanket Cruz MD [address] [place] [address] Br Imaging [address] [place] [address] Referral ID Status Reason Start Date Expiration Date V isits Requested Visits Authorized [id number] Closed Auto-Generate d Referral 05/28/2023 06/26/2024 1 1 [facility] for visit Narrative* Diagnostic Procedure Only (Routine) - Closed Specialty Diagnoses / Procedures [facility] Referred To Contact BR [facility] Diagnoses Abnormal mammogram Procedures SARATH DIAGNOSTIC LEFT DIAGNOSTIC MAMMOGRAPHY COMPUTER-AIDED DETCJ UNI Sanket Cruz MD [address] [place] [address] [facility] Imaging [address] [place] [address] Referral ID Status Reason Start Date Expiration Date V isits Requested Visits Authorized [id number] Closed Auto-Generate d Referral 09/16/2023 10/15/2024 1 1 [facility] for visit Narrative* Diagnostic Procedure Only (Routine) - Closed Specialty Diagnoses / Procedures Referred By Contac t Referred To Contact BR IMAGING Diagnoses Mass of left breast, unspecified quadrant Abnormal mammogram Procedures SARATH DIAGNOSTIC LEFT DIAGNOSTIC MAMMOGRAPHY COMPUTER-AIDED DETCJ UNI Sanket Cruz MD [address] [place] [address] [facility] Imaging [address] [place] [address] Referral ID Status Reason Start Date Expiration Date V isits Requested Visits Authorized [id number] Closed Auto-Generate d Referral 04/08/2024 11/07/2024 1 1 [facility] for visit Narrative* Diagnostic Procedure Only (Routine) - Closed Specialty Diagnoses / Procedures Referred By Contac t Referred To Contact XR IMAGING Diagnoses Chronic right hip pain Procedures XR HIP GENERAL 3V PELV/AP/LAT RIGHT RADEX HIP UNILATERAL WITH PELVIS 2-3 VIEWS Sanket Cruz MD [address] [place] [address] [place] [address] Referral ID Status Reason Start Date Expiration Date V isits Requested Visits Authorized [id number] Closed Auto-Generate d Referral 12/02/2024 01/01/2026 1 1 [facility] for visit Narrative* Diagnostic Procedure Only (Routine) - Closed Specialty Diagnoses / Procedures Referred By Contac t Referred To Contact [facility] Diagnoses Abnormal uterine bleeding (AUB) Procedures PELVIC US WHI US PELVIC NONOBSTETRIC REAL-TIME IMAGE COMPLETE Mine Doty MD [address] [place] [address] Phone: tel: fax: [facility] [address] [place] [address] Referral ID Status Reason Start Date Expiration Date V isits Requested Visits Authorized [id number] Closed Auto-Generate d Referral 01/20/2025 01/20/2026 1 1 [facility] for visit Narrative* [place] Prior Authorization (Routine) - Authorized Specialty Diagnoses / Procedures Referred By Brien t Referred To Contact Diagnoses Iron deficiency anemia due to chronic blood loss Low iron Procedures IRON SUCROSE INJECTION PER 1 MG Petra Grant [address] [place] [address] Phone: tel: fax: Petra Grant [address] [place] [address] Phone: tel: fax: Referral ID Status Reason Start Date Expiration Date V isits Requested Visits Authorized [id number] Authorized 02/14/2025 11/23/2025 0 99 [facility] for visit Narrative* Diagnostic Procedure Only (Routine) - Closed Specialty Diagnoses / Procedures Referred By Brien scales Referred To Contact BR IMAGING Diagnoses Abnormal mammogram Procedures SARATH DIAGNOSTIC LEFT DIAGNOSTIC MAMMOGRAPHY COMPUTER-AIDED DETCJ UNI Mine Doty MD [address] [place] [address] Phone: tel: fax: [facility] [address] [place] [address] Referral ID Status Reason Start Date Expiration Date V isits Requested Visits Authorized [id number] Closed Auto-Generate d Referral 01/20/2025 02/19/2026 1 1 [facility] Advance Directives Documents on File Type Date Recorded 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 Internship Expl 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 Advance Directive(s) Documents on File Type Date Recorded 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 Internship Expl anation Advance Directive(s) Documents on File Type Date Recorded 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 Internship Expl anation Advance Directive(s) Advance Directive(s) 05/23/2022 4:24 PM Documents on File Type Date Recorded 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 Internship Expl anation Advance Directive(s) Advance Directive(s) 05/23/2022 4:24 PM Advance Directive Response Recorded Date/ Time Living Will No July 06 7 11:37pm Power of Automobile Parts Assembler No July 06, 017 11:37pm Reason for Referral Specialty Diagnoses / Procedures Referred By Brien t Referred To Contact Neurology Diagnoses Pseudotumor cerebri Headaches Procedures CONSULT TO NEUROLOGY OFFICE/OUTPATIENT [facility] 60-74 MINUTES Sanket Cruz MD [address] [place] [address] Referral ID Status Reason Start Date Expiration Date Visits Requested Visits Authorized [id number] Pending Review PCP Requested Referral 03/01/2022 03/01/2023 1 1 Specialty Diagnoses / Procedures Referred By Contac t Referred To Contact MR IMAGING Diagnoses Pseudotumor cerebri Chronic intractable headache, unspecified headache type Procedures MRV BRAIN WO IVCON MRA, HEAD W/O CONTRAST Damien Shaver Jr., MD [address] [facility] [address] [place] [address] Mr Imaging Referral ID Status Reason Start Date Expiration Date V isits Requested Visits Authorized [id number] Closed Auto-Generate d Referral 04/29/2022 05/29/2023 1 1 Specialty Diagnoses / Procedures Referred By Contac t Referred To Contact MR IMAGING Diagnoses Pseudotumor cerebri Chronic intractable headache, unspecified headache type Procedures MRI BRAIN WO IVCON MRI BRAIN BRAIN STEM W/O CONTRAST MATERIAL Damien Shaver Jr., MD [address] [facility] [address] [place] [address] Mr Imaging Referral ID Status Reason Start Date Expiration Date V isits Requested Visits Authorized [id number] Closed Auto-Generate d Referral 04/29/2022 05/29/2023 1 1 Specialty Diagnoses / Procedures Referred By Contac t Referred To Contact Orthopedics Diagnoses Chronic right hip pain Procedures CONSULT TO ORTHOPAEDICS OFFICE/OUTPATIENT [facility] 60 MINUTES Sanket Cruz MD [address] [place] [address] Referral ID Status Reason Start Date Expiration Date Visits Requested Visits Authorized [id number] Authorized PCP Requested Referral 12/02/2024 12/02/2025 1 1 Specialty Diagnoses / Procedures Referred By Contac t Referred To Contact XR IMAGING Diagnoses Chronic right hip pain Procedures XR HIP GENERAL 3V PELV/AP/LAT RIGHT RADEX HIP UNILATERAL WITH PELVIS 2-3 VIEWS Sanket Cruz MD [address] [place] [address] [place] [address] Referral ID Status Reason Start Date Expiration Date Visits Requested Visits Authorized [id number] New Request Auto-Generat ed Referral 12/02/2024 01/01/2026 1 1 Medications Administered Section Inactive Administered Medications - up to 3 most recent administrations Medication Order MAR Action Action Date Dose Rate Site acetaminophen 650 mg tab(s) (TYLENOL) 650 mg, ORAL, EVERY 4 HOURS NEEDED, Starting on Tosha 05/30/22 at 1130, Until 05/31/22 at 0303, Mild Pain (1-3) - Enteral, If ordered PRN for pain, patient/guardian may elect to receive this medication for higher pain levels INSTEAD of the opioid, if preferred: Yes Given 05/30/2022 11:33 AM EDT 650 mg Chief Complaint and Reason for Visit Chief Complaint DIZZY, NAUSEA, VERTI GO? VERTIGO / RX HERE fever Reason for Visit BPPV (benign paroxys mal positional vertigo) Chief Complaint Admit Date RT HIP PAIN/OA January 27, 2025 8:50 am Summary Purpose Family History No Family History Records FoundNo Family History Records FoundNo Family History Records Found Additional Source Comments Source Comments (unrecognize d section and content) In the event this informatio n is protected by the Federal Confidentiality of Alcohol and Drug Abuse Patient Records regulations: The Federal rules restrict any use of the information to criminally investigate or prosecute any alcohol or drug abuse patient.[facility] the event this information is protected by the Federal Confidentiality of Alcohol and Drug Abuse Patient Records regulations: The Federal rules restrict any use of the information to criminally investigate or prosecute any alcohol or drug abuse patient.[facility] Center[facility] the event this information is protected by the Federal Confidentiality of Alcohol and Drug Abuse Patient Records regulations: The Federal rules restrict any use of the information to criminally investigate or prosecute any alcohol or drug abuse patient.[facility] Center[facility] the event this information is protected by the Federal Confidentiality of Alcohol and Drug Abuse Patient Records regulations: The Federal rules restrict any use of the information to criminally investigate or prosecute any alcohol or drug abuse patient.[facility] the event this information is protected by the Federal Confidentiality of Alcohol and Drug Abuse Patient Records regulations: The Federal rules restrict any use of the information to criminally investigate or prosecute any alcohol or drug abuse patient.[facility] Center[facility] the event this information is protected by the Federal Confidentiality of Alcohol and Drug Abuse Patient Records regulations: The Federal rules restrict any use of the information to criminally investigate or prosecute any alcohol or drug abuse patient.[facility] Center[facility] the event this information is protected by the Federal Confidentiality of Alcohol and Drug Abuse Patient Records regulations: The Federal rules restrict any use of the information to criminally investigate or prosecute any alcohol or drug abuse patient.[facility] Center[facility] the event this information is protected by the Federal Confidentiality of Alcohol and Drug Abuse Patient Records regulations: The Federal rules restrict any use of the information to criminally investigate or prosecute any alcohol or drug abuse patient.[facility] the event this information is protected by the Federal Confidentiality of Alcohol and Drug Abuse Patient Records regulations: The Federal rules restrict any use of the information to criminally investigate or prosecute any alcohol or drug abuse patient.[facility] Center[facility] the event this information is protected by the Federal Confidentiality of Alcohol and Drug Abuse Patient Records regulations: The Federal rules restrict any use of the information to criminally investigate or prosecute any alcohol or drug abuse patient.[facility] Center[facility] the event this information is protected by the Federal Confidentiality of Alcohol and Drug Abuse Patient Records regulations: The Federal rules restrict any use of the information to criminally investigate or prosecute any alcohol or drug abuse patient.[facility] Center[facility] the event this information is protected by the Federal Confidentiality of Alcohol and Drug Abuse Patient Records regulations: The Federal rules restrict any use of the information to criminally investigate or prosecute any alcohol or drug abuse patient.[facility] Center[facility] the event this information is protected by the Federal Confidentiality of Alcohol and Drug Abuse Patient Records regulations: The Federal rules restrict any use of the information to criminally investigate or prosecute any alcohol or drug abuse patient.[facility] Center[facility] the event this information is protected by the Federal Confidentiality of Alcohol and Drug Abuse Patient Records regulations: The Federal rules restrict any use of the information to criminally investigate or prosecute any alcohol or drug abuse patient.[facility] Center[facility] the event this information is protected by the Federal Confidentiality of Alcohol and Drug Abuse Patient Records regulations: The Federal rules restrict any use of the information to criminally investigate or prosecute any alcohol or drug abuse patient.[facility] Center[facility] the event this information is protected by the Federal Confidentiality of Alcohol and Drug Abuse Patient Records regulations: The Federal rules restrict any use of the information to criminally investigate or prosecute any alcohol or drug abuse patient.[facility] Center[facility] the event this information is protected by the Federal Confidentiality of Alcohol and Drug Abuse Patient Records regulations: The Federal rules restrict any use of the information to criminally investigate or prosecute any alcohol or drug abuse patient.[facility] CenterIn the event this information is protected by the Federal Confidentiality of Alcohol and Drug Abuse Patient Records regulations: The Federal rules restrict any use of the information to criminally investigate or prosecute any alcohol or drug abuse patient.[facility] CenterIn the event this information is protected by the Federal Confidentiality of Alcohol and Drug Abuse Patient Records regulations: The Federal rules restrict any use of the information to criminally investigate or prosecute any alcohol or drug abuse patient.[facility] CenterIn the event this information is protected by the Federal Confidentiality of Alcohol and Drug Abuse Patient Records regulations: The Federal rules restrict any use of the information to criminally investigate or prosecute any alcohol or drug abuse patient.[facility] CenterIn the event this information is protected by the Federal Confidentiality of Alcohol and Drug Abuse Patient Records regulations: The Federal rules restrict any use of the information to criminally investigate or prosecute any alcohol or drug abuse patient.[facility] CenterIn the event this information is protected by the Federal Confidentiality of Alcohol and Drug Abuse Patient Records regulations: The Federal rules restrict any use of the information to criminally investigate or prosecute any alcohol or drug abuse patient.[facility] CenterIn the event this information is protected by the Federal Confidentiality of Alcohol and Drug Abuse Patient Records regulations: The Federal rules restrict any use of the information to criminally investigate or prosecute any alcohol or drug abuse patient.[facility] CenterIn the event this information is protected by the Federal Confidentiality of Alcohol and Drug Abuse Patient Records regulations: The Federal rules restrict any use of the information to criminally investigate or prosecute any alcohol or drug abuse patient.[facility] CenterIn the event this information is protected by the Federal Confidentiality of Alcohol and Drug Abuse Patient Records regulations: The Federal rules restrict any use of the information to criminally investigate or prosecute any alcohol or drug abuse patient.[facility] CenterIn the event this information is protected by the Federal Confidentiality of Alcohol and Drug Abuse Patient Records regulations: The Federal rules restrict any use of the information to criminally investigate or prosecute any alcohol or drug abuse patient.[facility] CenterIn the event this information is protected by the Federal Confidentiality of Alcohol and Drug Abuse Patient Records regulations: The Federal rules restrict any use of the information to criminally investigate or prosecute any alcohol or drug abuse patient.[facility] CenterIn the event this information is protected by the Federal Confidentiality of Alcohol and Drug Abuse Patient Records regulations: The Federal rules restrict any use of the information to criminally investigate or prosecute any alcohol or drug abuse patient.[facility] CenterIn the event this information is protected by the Federal Confidentiality of Alcohol and Drug Abuse Patient Records regulations: The Federal rules restrict any use of the information to criminally investigate or prosecute any alcohol or drug abuse patient.[facility] CenterIn the event this information is protected by the Federal Confidentiality of Alcohol and Drug Abuse Patient Records regulations: The Federal rules restrict any use of the information to criminally investigate or prosecute any alcohol or drug abuse patient.[facility] CenterIn the event this information is protected by the Federal Confidentiality of Alcohol and Drug Abuse Patient Records regulations: The Federal rules restrict any use of the information to criminally investigate or prosecute any alcohol or drug abuse patient.[facility] CenterIn the event this information is protected by the Federal Confidentiality of Alcohol and Drug Abuse Patient Records regulations: The Federal rules restrict any use of the information to criminally investigate or prosecute any alcohol or drug abuse patient.[facility] CenterIn the event this information is protected by the Federal Confidentiality of Alcohol and Drug Abuse Patient Records regulations: The Federal rules restrict any use of the information to criminally investigate or prosecute any alcohol or drug abuse patient.[facility] CenterIn the event this information is protected by the Federal Confidentiality of Alcohol and Drug Abuse Patient Records regulations: The Federal rules restrict any use of the information to criminally investigate or prosecute any alcohol or drug abuse patient.[facility] CenterIn the event this information is protected by the Federal Confidentiality of Alcohol and Drug Abuse Patient Records regulations: The Federal rules restrict any use of the information to criminally investigate or prosecute any alcohol or drug abuse patient.[facility] CenterIn the event this information is protected by the Federal Confidentiality of Alcohol and Drug Abuse Patient Records regulations: The Federal rules restrict any use of the information to criminally investigate or prosecute any alcohol or drug abuse patient.[facility] CenterIn the event this information is protected by the Federal Confidentiality of Alcohol and Drug Abuse Patient Records regulations: The Federal rules restrict any use of the information to criminally investigate or prosecute any alcohol or drug abuse patient.[facility] CenterIn the event this information is protected by the Federal Confidentiality of Alcohol and Drug Abuse Patient Records regulations: The Federal rules restrict any use of the information to criminally investigate or prosecute any alcohol or drug abuse patient.[facility] CenterIn the event this information is protected by the Federal Confidentiality of Alcohol and Drug Abuse Patient Records regulations: The Federal rules restrict any use of the information to criminally investigate or prosecute any alcohol or drug abuse patient.[facility] CenterIn the event this information is protected by the Federal Confidentiality of Alcohol and Drug Abuse Patient Records regulations: The Federal rules restrict any use of the information to criminally investigate or prosecute any alcohol or drug abuse patient.[facility] CenterIn the event this information is protected by the Federal Confidentiality of Alcohol and Drug Abuse Patient Records regulations: The Federal rules restrict any use of the information to criminally investigate or prosecute any alcohol or drug abuse patient.[facility] CenterIn the event this information is protected by the Federal Confidentiality of Alcohol and Drug Abuse Patient Records regulations: The Federal rules restrict any use of the information to criminally investigate or prosecute any alcohol or drug abuse patient.[facility] CenterIn the event this information is protected by the Federal Confidentiality of Alcohol and Drug Abuse Patient Records regulations: The Federal rules restrict any use of the information to criminally investigate or prosecute any alcohol or drug abuse patient.[facility] CenterIn the event this information is protected by the Federal Confidentiality of Alcohol and Drug Abuse Patient Records regulations: The Federal rules restrict any use of the information to criminally investigate or prosecute any alcohol or drug abuse patient.[facility] CenterIn the event this information is protected by the Federal Confidentiality of Alcohol and Drug Abuse Patient Records regulations: The Federal rules restrict any use of the information to criminally investigate or prosecute any alcohol or drug abuse patient.[facility] CenterIn the event this information is protected by the Federal Confidentiality of Alcohol and Drug Abuse Patient Records regulations: The Federal rules restrict any use of the information to criminally investigate or prosecute any alcohol or drug abuse patient.[facility] CenterIn the event this information is protected by the Federal Confidentiality of Alcohol and Drug Abuse Patient Records regulations: The Federal rules restrict any use of the information to criminally investigate or prosecute any alcohol or drug abuse patient.[facility] CenterIn the event this information is protected by the Federal Confidentiality of Alcohol and Drug Abuse Patient Records regulations: The Federal rules restrict any use of the information to criminally investigate or prosecute any alcohol or drug abuse patient.[facility] CenterIn the event this information is protected by the Federal Confidentiality of Alcohol and Drug Abuse Patient Records regulations: The Federal rules restrict any use of the information to criminally investigate or prosecute any alcohol or drug abuse patient.[facility] CenterIn the event this information is protected by the Federal Confidentiality of Alcohol and Drug Abuse Patient Records regulations: The Federal rules restrict any use of the information to criminally investigate or prosecute any alcohol or drug abuse patient.[facility] CenterIn the event this information is protected by the Federal Confidentiality of Alcohol and Drug Abuse Patient Records regulations: The Federal rules restrict any use of the information to criminally investigate or prosecute any alcohol or drug abuse patient.[facility] CenterIn the event this information is protected by the Federal Confidentiality of Alcohol and Drug Abuse Patient Records regulations: The Federal rules restrict any use of the information to criminally investigate or prosecute any alcohol or drug abuse patient.[facility] CenterIn the event this information is protected by the Federal Confidentiality of Alcohol and Drug Abuse Patient Records regulations: The Federal rules restrict any use of the information to criminally investigate or prosecute any alcohol or drug abuse patient.[facility] CenterIn the event this information is protected by the Federal Confidentiality of Alcohol and Drug Abuse Patient Records regulations: The Federal rules restrict any use of the information to criminally investigate or prosecute any alcohol or drug abuse patient.[facility] CenterIn the event this information is protected by the Federal Confidentiality of Alcohol and Drug Abuse Patient Records regulations: The Federal rules restrict any use of the information to criminally investigate or prosecute any alcohol or drug abuse patient.[facility] CenterIn the event this information is protected by the Federal Confidentiality of Alcohol and Drug Abuse Patient Records regulations: The Federal rules restrict any use of the information to criminally investigate or prosecute any alcohol or drug abuse patient.[facility] CenterIn the event this information is protected by the Federal Confidentiality of Alcohol and Drug Abuse Patient Records regulations: The Federal rules restrict any use of the information to criminally investigate or prosecute any alcohol or drug abuse patient.[facility] CenterIn the event this information is protected by the Federal Confidentiality of Alcohol and Drug Abuse Patient Records regulations: The Federal rules restrict any use of the information to criminally investigate or prosecute any alcohol or drug abuse patient.[facility] CenterIn the event this information is protected by the Federal Confidentiality of Alcohol and Drug Abuse Patient Records regulations: The Federal rules restrict any use of the information to criminally investigate or prosecute any alcohol or drug abuse patient.[facility] CenterIn the event this information is protected by the Federal Confidentiality of Alcohol and Drug Abuse Patient Records regulations: The Federal rules restrict any use of the information to criminally investigate or prosecute any alcohol or drug abuse patient.[facility] CenterIn the event this information is protected by the Federal Confidentiality of Alcohol and Drug Abuse Patient Records regulations: The Federal rules restrict any use of the information to criminally investigate or prosecute any alcohol or drug abuse patient.[facility] CenterIn the event this information is protected by the Federal Confidentiality of Alcohol and Drug Abuse Patient Records regulations: The Federal rules restrict any use of the information to criminally investigate or prosecute any alcohol or drug abuse patient.[facility] CenterIn the event this information is protected by the Federal Confidentiality of Alcohol and Drug Abuse Patient Records regulations: The Federal rules restrict any use of the information to criminally investigate or prosecute any alcohol or drug abuse patient.[facility] CenterIn the event this information is protected by the Federal Confidentiality of Alcohol and Drug Abuse Patient Records regulations: The Federal rules restrict any use of the information to criminally investigate or prosecute any alcohol or drug abuse patient.[facility] CenterIn the event this information is protected by the Federal Confidentiality of Alcohol and Drug Abuse Patient Records regulations: The Federal rules restrict any use of the information to criminally investigate or prosecute any alcohol or drug abuse patient.[facility] CenterIn the event this information is protected by the Federal Confidentiality of Alcohol and Drug Abuse Patient Records regulations: The Federal rules restrict any use of the information to criminally investigate or prosecute any alcohol or drug abuse patient.[facility] CenterIn the event this information is protected by the Federal Confidentiality of Alcohol and Drug Abuse Patient Records regulations: The Federal rules restrict any use of the information to criminally investigate or prosecute any alcohol or drug abuse patient.[facility] CenterIn the event this information is protected by the Federal Confidentiality of Alcohol and Drug Abuse Patient Records regulations: The Federal rules restrict any use of the information to criminally investigate or prosecute any alcohol or drug abuse patient.[facility] CenterIn the event this information is protected by the Federal Confidentiality of Alcohol and Drug Abuse Patient Records regulations: The Federal rules restrict any use of the information to criminally investigate or prosecute any alcohol or drug abuse patient.[facility] Care Teams (unrecognized sec tion and content) Elastic Tape Inserter Relationship Specialty Start Date End Date Sanket Cruz MD [address] [place] [address] PCP - General Family Practice 08/17/15 Elastic Tape Inserter Relationship Specialty Start Date End Date Sanket Cruz MD [address] [place] [address] PCP - General Family Practice 08/17/15 Elastic Tape Inserter Relationship Specialty Start Date End Date Sanket Cruz MD [address] [place] [address] PCP - General Family Practice 08/17/15 Elastic Tape Inserter Relationship Specialty Start Date End Date Sanket Cruz MD [address] [place] [address] PCP - General Family Practice 08/17/15 Elastic Tape Inserter Relationship Specialty Start Date End Date Sanket Cruz MD [address] [place] [address] PCP - General Family Practice 08/17/15 Elastic Tape Inserter Relationship Specialty Start Date End Date Sanket Cruz MD [address] [place] [address] PCP - General Family Practice 08/17/15 Elastic Tape Inserter Relationship Specialty Start Date End Date Sanket Cruz MD [facility] [place] [address] PCP - General Family Practice 08/17/15 Elastic Tape Inserter Relationship Specialty Start Date End Date Sanket Cruz MD [facility] [place] [address] PCP - General Family Practice 08/17/15 Elastic Tape Inserter Relationship Specialty Start Date End Date Sanket Cruz MD [facility] [place] [address] PCP - General Family Practice 08/17/15 Elastic Tape Inserter Relationship Specialty Start Date End Date Sanket Cruz MD [facility] [place] [address] PCP - General Family Practice 08/17/15 Elastic Tape Inserter Relationship Specialty Start Date End Date Sanket Cruz MD [facility] [place] [address] PCP - General Family Practice 08/17/15 Elastic Tape Inserter Relationship Specialty Start Date End Date Sanket Cruz MD [facility] [place] [address] PCP - General Family Practice 08/17/15 Elastic Tape Inserter Relationship Specialty Start Date End Date Sanket Cruz MD [facility] [place] [address] PCP - General Family Medicine 08/17/15 Elastic Tape Inserter Relationship Specialty Start Date End Date Sanket Cruz MD [address] [place] [address] PCP - General Family Medicine 08/17/15 Elastic Tape Inserter Relationship Specialty Start Date End Date Sanket Cruz MD [address] [place] [address] PCP - General Family Medicine 08/17/15 Elastic Tape Inserter Relationship Specialty Start Date End Date Sanket Cruz MD [address] [place] [address] PCP - General Family Medicine 08/17/15 Elastic Tape Inserter Relationship Specialty Start Date End Date Sanket Cruz MD [address] [place] [address] PCP - General Family Medicine 08/17/15 Elastic Tape Inserter Relationship Specialty Start Date End Date Sanket Cruz MD [address] [place] [address] PCP - General Family Medicine 08/17/15 Elastic Tape Inserter Relationship Specialty Start Date End Date Sanket Cruz MD [address] [place] [address] PCP - General Family Medicine 08/17/15 Elastic Tape Inserter Relationship Specialty Start Date End Date Sanket Cruz MD [address] [place] [address] PCP - General Family Medicine 08/17/15 Elastic Tape Inserter Relationship Specialty Start Date End Date Sanket Cruz MD [address] [place] [address] PCP - General Family Medicine 08/17/15 Elastic Tape Inserter Relationship Specialty Start Date End Date Sanket Cruz MD [address] [place] [address] PCP - General Family Medicine 08/17/15 Elastic Tape Inserter Relationship Specialty Start Date End Date Sanket Cruz MD [address] [place] [address] PCP - General Family Medicine 08/17/15 Elastic Tape Inserter Relationship Specialty Start Date End Date Sanket Cruz MD [address] [place] [address] PCP - General Family Medicine 08/17/15 Elastic Tape Inserter Relationship Specialty Start Date End Date Sanket Cruz MD [address] [place] [address] PCP - General Family Medicine 08/17/15 Elastic Tape Inserter Relationship Specialty Start Date End Date Sanket Cruz MD [address] [place] [address] PCP - General Family Medicine 08/17/15 Funmilayo Davies APRN.TYPESETTERS PRINTER [address] [place] [address] [employer] Family Medicine 10/30/24 Shena Dwyer PA-C [address] [place] [address] [employer] Family Medicine 10/30/24 Elastic Tape Inserter Relationship Specialty Start Date End Date Sanket Cruz MD [address] [place] [address] PCP - General Family Medicine 08/17/15 Funmilayo Davies APRN.TYPESETTERS PRINTER [address] [facility] [place] [address] [employer] Family Medicine 10/30/24 Shena Dwyer PA-C [address] [place] [address] [employer] Family Medicine 10/30/24 Elastic Tape Inserter Relationship Specialty Start Date End Date Sanket Cruz MD [address] [place] [address] PCP - General Family Medicine 08/17/15 Funmilayo Davies APRN.TYPESETTERS PRINTER [address] [place] [address] [employer] Family Medicine 10/30/24 Shena Dwyer PA-C [address] [place] [address] [employer] Family Medicine 10/30/24 Elastic Tape Inserter Relationship Specialty Start Date End Date Sanket Cruz MD [address] [place] [address] PCP - General Family Medicine 08/17/15 Funmilayo Davies, JOSUÉ.TYPESETTERS PRINTER [address] [facility] [place] [address] [employer] Family Medicine 10/30/24 Shena Dwyer PA-C [address] [place] [address] [employer] Family Medicine 10/30/24 Elastic Tape Inserter Relationship Specialty Start Date End Date Sanket Cruz MD [address] [place] [address] PCP - General Family Medicine 08/17/15 Funmilayo Davies APRN.TYPESETTERS PRINTER [address] [place] [address] [employer] Family Medicine 10/30/24 Shena Dwyer PA-C [address] [place] [address] [employer] Family Medicine 10/30/24 Elastic Tape Inserter Relationship Specialty Start Date End Date Sanket Cruz MD [address] [place] [address] PCP - General Family Medicine 08/17/15 Funmilayo Davies APRN.TYPESETTERS PRINTER [address] [place] [address] [employer] Family Medicine 10/30/24 Shena Dwyer PA-C [address] [place] [address] [employer] Family [facility] 10/30/24 Elastic Tape Inserter Relationship Specialty Start Date End Date Sanket Cruz MD [address] [place] [address] PCP - General Family Medicine 08/17/15 Funmilayo Davies DEPOSITING MACHINE OPERATOR.TYPESETTERS PRINTER [address] [place] [address] [employer] Family [facility] 10/30/24 Shena Dwyer PA-C [address] [place] [address] [employer] Family [facility] 10/30/24 Elastic Tape Inserter Relationship Specialty Start Date End Date Sanket Cruz MD [address] [place] [address] PCP - General Family Medicine 08/17/15 Funmilayo Davies, JOSUÉ.TYPESETTERS PRINTER [address] [facility] [place] [address] [employer] Family Medicine 10/30/24 Shena Dwyer PA-C [address] [place] [address] [employer] Family Medicine 10/30/24 Elastic Tape Inserter Relationship Specialty Start Date End Date Sanket Curz MD [address] [place] [address] PCP - General Family Medicine 08/17/15 Funmilayo Davies, DEPOSITING MACHINE OPERATOR.T[employer]ETTER[employer] PRINTER [address] [facility] [place] [address] [employer] Family Medicine 10/30/24 Shena Dwyer PA-C [address] [place] [address] [employer] Family Medicine 10/30/24 Elastic Tape Inserter Relationship Specialty Start Date End Date Sanket Cruz MD [address] [place] [address] PCP - General Family Medicine 08/17/15 Funmilayo Davies APRN.TYPESETTERS PRINTER [address] [facility] [place] [address] [employer] Family [facility] 10/30/24 Shena Dwyer PA-C [address] [place] [address] [employer] Family [facility] 10/30/24 Elastic Tape Inserter Relationship Specialty Start Date End Date Sanket Cruz MD [address] [place] [address] PCP - General Family Medicine 08/17/15 Funmilayo Davies APRN.TYPESETTERS PRINTER [address] [place] [address] [employer] Family [facility] 10/30/24 Shena Dwyer PA-C [address] [place] [address] [employer] [facility] 10/30/24 Elastic Tape Inserter Relationship Specialty Start Date End Date Sanket Cruz MD [address] [place] [address] PCP - General Family Medicine 08/17/15 Funmilayo Davies APRN.TYPESETTERS PRINTER [address] [place] [address] [employer] [facility] 10/30/24 Shena Dwyer PA-C [address] [place] [address] [employer] [facility] 10/30/24 Elastic Tape Inserter Relationship Specialty Start Date End Date Sanket Cruz MD [address] [place] [address] PCP - General Family Medicine 08/17/15 Funmilayo Davies APRN.TYPESETTERS PRINTER [address] [place] [address] [employer] Family [facility] 10/30/24 Shena Dwyer PA-C [address] [place] [address] [facility] 10/30/24 Elastic Tape Inserter Relationship Specialty Start Date End Date Sanket Cruz MD [address] [place] [address] PCP - General Family Medicine 08/17/15 Funmilayo Davies, DEPOSITING MACHINE OPERATOR.TYPESETTERS PRINTER [address] [place] [address] [facility] 10/30/24 Shena Dwyer PA-C [address] [place] [address] [facility] 10/30/24 Mine Doty MD [address] [place] [address] [employer]aratus Repair Mechanic 02/10/25 Elastic Tape Inserter Relationship Specialty Start Date End Date Sanket Cruz MD [address] [place] [address] PCP - General Family Medicine 08/17/15 Funmilayo Davies, DEPOSITING MACHINE OPERATOR.TYPESETTERS PRINTER [address] [place] [address] [facility] 10/30/24 Shena Dwyer PA-C [address] [place] [address] [employer] [facility] 10/30/24 iMne Doty MD [address] [place] [address] Apparatus Repair Mechanic 02/10/25 Elastic Tape Inserter Relationship Specialty Start Date End Date Sanket Cruz MD [address] [place] [address] PCP - General Family Medicine 08/17/15 Funmilayo Davies APRN.TYPESETTERS PRINTER [address] [place] [address] [employer] [facility] 10/30/24 Shena Dwyer PA-C [address] [place] [id number] [employer] [facility] 10/30/24 Mine Doty MD [address] [place] [address] Apparatus Repair Mechanic 02/10/25 Elastic Tape Inserter Relationship Specialty Start Date End Date Sanket Cruz MD [address] [place] [address] PCP - General Family Medicine 08/17/15 Funmilayo Davies, DEPOSITING MACHINE OPERATOR.TYPESETTERS PRINTER [address] [place] [address] [employer] [facility] 10/30/24 Shena Dwyer PA-C [address] [place] [address] [employer] [facility] 10/30/24 Mine Doty MD [address] [place] [address] Apparatus Repair Mechanic 02/10/25 Team Status: Active Member Role Status Dates No Primary Care Physician Primary Care Provider Active Team Status: Inactive Member Role Status Dates No Primary Care Physician Primary Care Provider Active Start: January 27, 2025 End: January 27, 2025 Dr. Erick Brownlee MD Attending Provider Active Start: January 27, 2025 End: January 27, 2025 Dr. Erick Brownlee MD Referring Provider Active Start: January 27, 2025 End: January 27, 2025 Elastic Tape Inserter Relationship Specialty Start Date End Date Sanket Cruz MD [address] [place] [address] PCP - General Family Medicine 08/17/15 Funmilayo Davies, JOSUÉ.TYPESETTERS PRINTER [address] [place] [address] [employer] [facility] 10/30/24 Shena Dwyer PA-C [address] [place] [address] [employer] [facility] 10/30/24 Mine Doty MD [address] [place] [address] Apparatus Repair Mechanic 02/10/25 Elastic Tape Inserter Relationship Specialty Start Date End Date Sanket Cruz MD [address] [place] [address] PCP - General Family Medicine 08/17/15 Funmilayo Davies, DEPOSITING MACHINE OPERATOR.TYPESETTERS PRINTER [address] [place] [address] [employer] [facility] 10/30/24 Shena Dwyer PA-C [address] [place] [address] [employer] [facility] 10/30/24 Mine Doty MD [address] [place] [address] Apparatus Repair Mechanic 02/10/25 Elastic Tape Inserter Relationship Specialty Start Date End Date Sanket Cruz MD [address] [place] [address] PCP - General Family Medicine 08/17/15 Funmilayo Davies APRN.TYPESETTERS PRINTER [address] [place] [address] [employer] [facility] 10/30/24 Shena Dwyer PA-C [address] [place] [address] [employer] [facility] 10/30/24 Mine Doty MD [address] [facility] [place] [address] Apparatus Repair Mechanic 02/10/25 Elastic Tape Inserter Relationship Specialty Start Date End Date Sanket Cruz MD [address] [place] [address] PCP - General Family Medicine 08/17/15 Funmilayo Davies, DEPOSITING MACHINE OPERATOR.TYPESETTERS PRINTER [address] [facility] [place] [address] [employer] [facility] 10/30/24 Shena Dwyer PA-C [address] [place] [address] [employer] [facility] 10/30/24 Mine Doty MD [address] [place] [address] Apparatus Repair Mechanic 02/10/25 Elastic Tape Inserter Relationship Specialty Start Date End Date Sanket Cruz MD [address] [place] [address] PCP - General Family Medicine 08/17/15 Funmilayo Davies APRN.TYPESETTERS PRINTER [address] [place] [address] [employer] [facility] 10/30/24 Shena Dwyer PA-C [address] [place] [address] [employer] [facility] 10/30/24 Mine Doty MD [address] [place] [address] Apparatus Repair Mechanic 02/10/25 Elastic Tape Inserter Relationship Specialty Start Date End Date Sanket Cruz MD [address] [place] [address] PCP - General Family Medicine 08/17/15 Funmilayo Davies APRN.TYPESETTERS PRINTER [address] [place] [address] [employer] [facility] 10/30/24 Shena Dwyer PA-C [address] [place] [address] [employer] [facility] 10/30/24 Mine Doty MD [address] [place] [address] Apparatus Repair Mechanic 02/10/25 Elastic Tape Inserter Relationship Specialty Start Date End Date Sanket Cruz MD [address] [place] [address] PCP - General Family Medicine 02/28/25 Funmilayo Davies APRN.TYPESETTERS PRINTER [address] [place] [address] [employer] [facility] 10/30/24 Shena Dwyer PA-C [address] [place] [address] [employer] [facility] 10/30/24 Mine Doty MD [address] [place] [address] Apparatus Repair Mechanic 02/10/25 Elastic Tape Inserter Relationship Specialty Start Date End Date Sanket Cruz MD [address] [place] [address] PCP - General Family Medicine 02/28/25 Funmilayo Davies APRN.TYPESETTERS PRINTER [address] [place] [address] [employer] [facility] 10/30/24 Shena Dwyer PA-C [address] [place] [address] [employer] [facility] 10/30/24 Mine Doty MD [address] [place] [address] Apparatus Repair Mechanic 02/10/25 Elastic Tape Inserter Relationship Specialty Start Date End Date Sanket Cruz MD [address] [place] [address] PCP - General Family Medicine 08/17/15 02/27/25 Sanket Cruz MD [address] [place] [address] PCP - General Family Medicine 02/28/25 Funmilayo Davies APRN.TYPESETTERS PRINTER [address] [place] [address] [employer] [facility] 10/30/24 Shena Dwyer PA-C [address] [place] [address] [employer] [facility] 10/30/24 Mine Doty MD [address] [place] [address] Apparatus Repair Mechanic 02/10/25 Elastic Tape Inserter Relationship Specialty Start Date End Date Sanket Cruz MD [address] [place] [address] PCP - General Family Medicine 02/28/25 Funmilayo Davies APRN.TYPESETTERS PRINTER [address] [place] [address] [employer] [facility] 10/30/24 Shena Dwyer PA-C [address] [place] [address] [employer] [facility] 10/30/24 Mine Doty MD [address] [place] [address] Apparatus Repair Mechanic 02/10/25 Elastic Tape Inserter Relationship Specialty Start Date End Date Sanket Cruz MD [address] [place] [address] PCP - General Family Medicine 02/28/25 Funmilayo Davies, JOSUÉ.TYPESETTERS PRINTER [address] [place] [address] [employer] [facility] 10/30/24 Shena Dwyer PA-C [address] [place] [address] [employer] [facility] 10/30/24 Mine Doty MD [address] [place] [address] Apparatus Repair Mechanic 02/10/25 Elastic Tape Inserter Relationship Specialty Start Date End Date Sanket Cruz MD [address] [place] [address] PCP - General Family Medicine 02/28/25 Funmilayo Davies APRN.TYPESETTERS PRINTER [address] [place] [address] [employer] [facility] 10/30/24 Shena Dwyer PA-C [address] [place] [address] [employer] [facility] 10/30/24 Mine Doty MD [address] [place] [address] Apparatus Repair Mechanic 02/10/25 Tanya Vernon, JOSUÉ.TYPESETTERS PRINTER [address] [place] [address] Referring Neurology 03/28/25 Elastic Tape Inserter Relationship Specialty Start Date End Date Sanket Cruz MD [address] [place] [address] PCP - General Family Medicine 02/28/25 Funmilayo Davies APRN.TYPESETTERS PRINTER [address] [place] [address] [facility]24 Shena Dwyer PA-C [address] [place] [address] [facility] 10/30/24 Mine Doty MD [address] [place] [address] Apparatus Repair Mechanic 02/10/25 Tanya Vernon, JOSUÉ.TYPESETTERS PRINTER [address] [place] [address] Referring Neurology 03/28/25 Elastic Tape Inserter Relationship Specialty Start Date End Date Sanket Cruz MD [address] [place] [address] PCP - General Family Medicine 02/28/25 Funmilayo Davies, DEPOSITING MACHINE OPERATOR.TYPESETTERS PRINTER [address] [place] [address] [facility] 10/30/24 Shena Dwyer PA-C [address] [place] [address] [facility] 10/30/24 Mine Doty MD [address] [place], [place] [address] Apparatus Repair Mechanic 02/10/25 Tanya Vernon APRN.TYPESETTERS PRINTER [address] [place], [place] [address] Referring Neurology 03/28/25 Elastic Tape Inserter Relationship Specialty Start Date End Date Sanket Cruz MD [address] [place], [place] [address] [phone] PCP - General Family Medicine 08/17/15 02/27/25 Sanket Cruz MD [address] [place] [address] PCP - General Family Medicine 02/28/25 Funmilayo Davies APRN.TYPESETTERS PRINTER [address] [place] [address] [employer] [facility] 10/30/24 Shena Dwyer PA-C [address] [place], [place] 643[address] [employer] [facility] 10/30/24 Mine Doty MD [address] [place] [address] Apparatus Repair Mechanic 02/10/25 Tanya Vernon, DEPOSITING MACHINE OPERATOR.TYPESETTERS PRINTER [address] [place], [place] 0[address]302 [phone] Referring Neurology 03/28/25 Elastic Tape Inserter Relationship Specialty Start Date End Date Sanket Cruz MD [address] [place], [place] [address] PCP - General Family Medicine 02/28/25 Funmilayo Davies APRN.TYPESETTERS PRINTER [address] [place], [place] 226[address] [phone] [facility] 10/[facility]/24 Shena Dwyer PA-C [address] [place] [address] [facility] 10/30/24 Mine Doty MD [address] [place] [address] Apparatus Repair Mechanic 02/10/25 Tanya Vernon APRN.TYPESETTERS PRINTER [facility] [place] [address] Referring Neurology 03/28/25 Elastic Tape Inserter Relationship Specialty Start Date End Date Sanket Cruz MD [address] [place] [address] PCP - General Family Medicine 02/28/25 Funmilayo Davies APRN.TYPESETTERS PRINTER [facility] [place], [place] [address] [facility] 10/30/24 04/10/25 Shena Dwyer PA-C [address] [place] [address] [facility] 10/30/24 Mine Doty MD [address] [place] [address] Apparatus Repair Mechanic 02/10/25 Tanya Vernon APRN.TYPESETTERS PRINTER [address] [place] [address] Referring Neurology 03/28/25 Elastic Tape Inserter Relationship Specialty Start Date End Date Sanket Cruz MD [address] [place] [address] PCP - General Family Medicine 02/28/25 Mine Doty MD [address] [place] [address] Apparatus Repair Mechanic 02/10/25 Tanya Vernon, DEPOSITING MACHINE OPERATOR.TYPESETTERS PRINTER [address] [place] [address] Referring Neurology 03/28/25 Funmilayo Davies DEPOSITING MACHINE OPERATOR.TYPESETTERS PRINTER [address] [place] [address] [employer] [facility] 04/25/25 Shena Dwyer PA-C [address] [place] [address] [employer] [facility] 04/25/25 Elastic Tape Inserter Relationship Specialty Start Date End Date Sanket Cruz MD [address] [place] [address] PCP - General Family Medicine 02/28/25 Mine Doty MD [address] [place] [address] Apparatus Repair Mechanic 02/10/25 Tanya Vernon, DEPOSITING MACHINE OPERATOR.TYPESETTERS PRINTER [address] [place] [address] Referring Neurology 03/28/25 Funmilayo Davies, DEPOSITING MACHINE OPERATOR.TYPESETTERS PRINTER [address] [place], [place] [address] [facility] 04/25/25 Shena Dwyer PA-C [address] [place] [address] [facility] 04/25/25 Elastic Tape Inserter Relationship Specialty Start Date End Date Sanket Cruz MD [address] [place] [address] PCP - General Family Medicine 02/28/25 Mine Doty MD [address] [place] [address] Apparatus Repair Mechanic 02/10/25 Tanya Vernon, DEPOSITING MACHINE OPERATOR.TYPESETTERS PRINTER [address] [place] [address] Referring Neurology 03/28/25 Funmilayo Davies, DEPOSITING MACHINE OPERATOR.TYPESETTERS PRINTER [address] [place] [address] [facility] 04/25/25 Shena Dwyer PA-C [address] [place] [address] [facility] 04/25/25 Elastic Tape Inserter Relationship Specialty Start Date End Date Sanket Cruz MD [address] [place] [address] PCP - General Family Medicine 02/28/25 Shena Dwyer PA-C [address] [place] [address] [employer] [facility] 10/30/24 04/24/25 Mine Doty MD [address] [place] [address] Apparatus Repair Mechanic 02/10/25 Tanya Vernon, DEPOSITING MACHINE OPERATOR.TYPESETTERS PRINTER [address] [place] [address] Referring Neurology 03/28/25 Elastic Tape Inserter Relationship Specialty Start Date End Date Sanket Cruz MD [address] [place] [address] PCP - General Family Medicine 02/28/25 Mine Doty MD [address] [place] [address] Apparatus Repair Mechanic 02/10/25 Tanya Vernon, DEPOSITING MACHINE OPERATOR.TYPESETTERS PRINTER [address] [place] [address] Referring Neurology 03/28/25 Funmilayo Davies APRN.TYPESETTERS PRINTER [address] [place] [address] [employer] [facility] 04/25/25 Shena Dwyer PA-C [address] [place] [address] [employer] [facility] 04/25/25 Elastic Tape Inserter Relationship Specialty Start Date End Date Sanket Cruz MD [address] [place] [address] PCP - General Family Medicine 02/28/25 Mine Doty MD [address] [place], [place] [id number] Apparatus Repair Mechanic 02/10/25 Tanya Vernon APRN.TYPESETTERS PRINTER [address] [place], [place] [address] Referring Neurology 03/28/25 Funmilayo Davies APRN.TYPESETTERS PRINTER [address] [place], [place] [id number] [facility] 04/25/25 Shena Dwyer PA-C [address] [place], [place] [address] [facility] 04/25/25 Reason for Visit (unrecogniz ed section and content) Reason Comments New Patient Specialty Diagnoses / Procedures Referred By Contac t Referred To Contact Neurosurgery Diagnoses Abnormal MRI IIH (idiopathic intracranial hypertension) Procedures CONSULT TO NEUROSURGERY OFFICE/OUTPATIENT NEW HIGH MDM 60 MINUTES Tanya Vernon, JOSUÉ.TYPESETTERS PRINTER [address] [address] Phone: tel: fax: Referral ID Status Reason Start Date Expiration Date V isits Requested Visits Authorized [id number] Closed PCP Requested Referral 03/25/2025 03/25/2026 1 1 Reason Comments Fever Reason Comments Recheck 5 months Specialty Diagnoses / Procedures Referred By Contac t Referred To Contact MR IMAGING Diagnoses Pseudotumor cerebri Chronic intractable headache, unspecified headache type Procedures MRI BRAIN WO IVCON MRI BRAIN BRAIN STEM W/O CONTRAST MATERIAL Damien Shaver Jr., MD [address] [address] Mr Imaging Referral ID Status Reason Start Date Expiration Date V isits Requested Visits Authorized [id number] Closed Auto-Generate d Referral 04/29/2022 05/29/2023 1 1 Reason Comments Results - Mri Reason Comments Results Reason Comments Med Change Request Reason Onset Date Comments error 05/23/2022 Reason Comments Headache Reason Comments Refill Request Reason Comments Physical Reason Comments Results Appointment Reason Comments Radiology US Specialty Diagnoses / Procedures Referred By Contac t Referred To Contact BR IMAGING Diagnoses Abnormal mammogram Procedures US BREAST LTD LEFT US BREAST UNI REAL TIME WITH IMAGE LIMITED Sanket Cruz MD [address] [place] [address] [facility] [address] [place] [address] Referral ID Status Reason Start Date Expiration Date V isits Requested Visits Authorized [id number] Closed Auto-Generate d Referral 09/16/2023 10/15/2024 1 1 Reason Comments Results Reason Comments Radiology US Specialty Diagnoses / Procedures Referred By Contac t Referred To Contact BR IMAGING Diagnoses Mass of left breast, unspecified quadrant Abnormal mammogram Procedures US BREAST LTD LEFT US BREAST UNI REAL TIME WITH IMAGE LIMITED Sanket Cruz MD [address] [place] [address] [facility] [address] [place] [address] Referral ID Status Reason Start Date Expiration Date V isits Requested Visits Authorized [id number] Closed Auto-Generate d Referral 04/08/2024 11/07/2024 1 1 Reason Comments Ear Pain right x 1 week, feve r x 2 days Reason Comments Results Reason Comments Hip Pain Reason Comments New Referred by Dr Tommy shepherd Last seen 07/11/14 Right ankle and hip pain Pain Referred by Dr Tommy shepherd Last seen 07/11/14 Right ankle and hip pain Specialty Diagnoses / Procedures Referred By Contac t Referred To Contact Orthopedics Diagnoses Chronic right hip pain Procedures CONSULT TO ORTHOPAEDICS OFFICE/OUTPATIENT NEW HIGH MDM 60 MINUTES Sanket Cruz MD [address] [place] [address] Phone: tel: fax: Referral ID Status Reason Start Date Expiration Date V isits Requested Visits Authorized [id number] Closed PCP Requested Referral 12/02/2024 12/02/2025 1 1 Reason Comments excessive menses Reason Comments Yearly Exam Reason Comments Follow Up Reason Comments Blood Management Reason Comments Non-Chemotherapy Treatment Specialty Diagnoses / Procedures Referred By Contac t Referred To Contact Diagnoses Iron deficiency anemia due to chronic blood loss Low iron Procedures IRON SUCROSE INJECTION PER 1 MG GrantPetra jimenez [address] [place] [address] Phone: tel: fax: Petra Grant [address] [place] [address] Phone: tel: fax: Referral ID Status Reason Start Date Expiration Date V isits Requested Visits Authorized [id number] Authorized 02/14/2025 11/23/2025 0 99 Specialty Diagnoses / Procedures Referred By Contac t Referred To Contact Hematology Diagnoses Iron deficiency anemia, unspecified iron deficiency anemia type Procedures CONSULT TO HEMATOLOGY OFFICE/OUTPATIENT NEW HIGH [facility] 60 MINUTES Shena Dwyer PA-C [address] [place] [address] Phone: tel: fax: Referral ID Status Reason Start Date Expiration Date V isits Requested Visits Authorized [id number] Closed PCP Requested Referral 01/31/2025 01/31/2026 1 1 Reason Comments Appointment Rescheduled Appointment Cancelled Reason Comments Follow Up Headache Reason Comments Social Work Services 1st Time Treatment Report Reason Comments Consult Hyst for AUB Reason Comments Ear Problem Bilateral pain, L fe els full of water x6 days Reason Comments Future Appointment New Patient [place] Any Reason Comments Senior Manager Mmcoe - Other MC message Reason Comments Pre-Op Visit Specialty Diagnoses / Procedures Referred By Contac t Referred To Contact BR IMAGING Diagnoses Abnormal mammogram Procedures US BREAST LTD LEFT US BREAST UNI REAL TIME WITH IMAGE LIMITED Mine Doty MD [address] [place] [address] Phone: tel: fax: BR IMAGING [address] [place] [address] Referral ID Status Reason Start Date Expiration Date V isits Requested Visits Authorized [id number] Closed Auto-Generate d Referral 01/20/2025 02/19/2026 1 1 PRN Active and Recently Administ ered Medications (unrecognized section and content) Medication Order 05/28/2022 05/29/2022 05/30/2022 acetaminophen 650 mg tab(s) (TYLENOL) 650 mg, ORAL, EVERY 4 HOURS NEEDED, Starting on Tosha 05/30/22 at 1130, Until 05/31/22 at 0303, Mild Pain (1-3) - Enteral, If ordered PRN for pain, patient/guardian may elect to receive this medication for higher pain levels INSTEAD of the opioid, if preferred: Yes 1133 (Given - Provid er: Amaris Nesbitt RN) Goals (unrecognized section and content) Goals may be documented in a n alternate sectionGoals may be documented in an alternate sectionGoals may be documented in an alternate section INFORMATION SOURCE (unrecogn ized section and content) DATE CREATED AUTHOR 05/03/2025 [facility] DATE CREATED AUTHOR AUTHOR'S ORGANIZ ATION 05/07/2025 [facility] DATE CREATED AUTHOR AUTHOR'S ORGANIZ ATION 05/07/2025 [facility] FOR RECORDS PERTAINING TO PATIENTS WHO ARE OR HAVE BEEN ENROLLED IN A CHEMICAL DEPENDENCY/SUBSTANCEABUSE PROGRAM, SOME INFORMATION MAY BE OMITTED. This clinical summary was aggregated from multiple sources. Caution should be exercised in using it in the provision of clinical care. This summary normalizes information from multiple sources, and as a consequence, information in this document may materially change the coding, format and clinical context of patient data. In addition, data may be omitted in some cases. CLINICAL DECISIONS SHOULD BE BASED ON THE PRIMARY CLINICAL RECORDS. [facility]. provides no warranty or guarantee of the accuracy or completeness of information in this document.
[2025-05-12] MEDS: Enoxaparin 40 MG/0.4 ML Syringe SC (06:11)
[2025-05-12] MEDS: Phenazopyridine 95 MG Tablet 190 MG PO (06:12)
[2025-05-12] MEDS: Scopolamine 1mg/72hr Patch 1 PATCH TD (06:12)
[2025-05-12 06:13] LABS: Internal QC Validated? YES +Cl - CLEAR BKGD; Pregnancy, Urine Negative Negative
[2025-05-12] MEDS: Celecoxib 200 MG Capsule 400 MG PO (06:13)
[2025-05-12] MEDS: Acetaminophen 500 MG Tablet 1000 MG PO (06:13)
[2025-05-12] MEDS: metroNIDAZOLE 500 MG/100 ML BAG 100 MG IV (06:14)
[2025-05-12] MEDS: Lactated Ringers 1,000 ML 40 ML IV (06:14)
[2025-05-12] MEDS: Magnesium 1 GM over 15 mins IV (06:15)
--- NOTE | 2025-05-12 06:41 | PCM.PRE.AN2 ---
ASA Classification* ASA Classification ASA Classification: 3 (BMI > 40. Hx PONV, migraines, anemia ) Assessment & Plan Anesthesia* Anesthesia Assessment Anesthesia Assessment: Discussed sedation and/or anesthesia options, risks, benefits, and alternatives with patient/parents/legal guardian/POA. Questions invited. The patient/parents/legal guardian/POA seems to understand and agrees to proceed with anesthesia plan. Reviewed the physical assessment, medical history, allergy history and patient home medications list prior to surgery/procedure/anesthetic and documented any changes. Performed airway and anesthesia risk assessments. Anesthesia Type Anesthesia Type: General (TIVA for PONV ) History Source History Obtained from:: Patient and Chart Anesthesia Focused Assessment* Temperature: 98.1 F Pulse Rate: 76 Blood Pressure: 143/83 Respiratory Rate: 16 Pulse Ox: 99 Oxygen Delivery Method: Room Air Airway Assessment Mouth opens: >3 cm Mallampati Score: III Teeth Condition: Intact Neck Range of motion (ROM): Full ROM Labs Anesthesia Preop lab: CBC WBC 9.0 K/mm3 (4.4-11.0) 05/05/25 08:22 05/05/25 RBC 4.67 M/mm3 (4.2-5.4) 05/05/25 08:22 05/05/25 Hgb 13.2 g/dL (12.0-15.0) 05/05/25 08:22 05/05/25 Hct 40.5 % (37-47) 05/05/25 08:22 05/05/25 Plt Count 395 K/mm3 (150-450) 05/05/25 08:22 05/05/25 CHEMISTRY Potassium 3.8 mmol/L (3.5-5.1) 02/01/14 09:40 02/01/14 Sodium 137 mmol/L (136-145) 02/01/14 09:40 02/01/14 Magnesium 2.2 mg/dL (1.5-2.2) 05/05/25 08:22 05/05/25 BUN 11 mg/dL (7-18) 02/01/14 09:40 02/01/14 Creatinine 0.71 mg/dL (0.55-1.02) 07/07/17 00:35 07/07/17 Glucose 85 mg/dL (74-106) 10/19/18 07:55 10/19/18 COAG PT 13.4 SECONDS (11.7-14.9) 05/05/25 08:22 05/05/25 HCG, Quant 858 mIU/mL (<9 non-preg) H 10/24/14 09:20 10/24/14 Urine Test Negative Negative 05/12/25 05:58 05/12/25 Pre-Assessment Diagnosis/Proposed Procedure Planned Operative Procedure(s): ERAS, Hysterectomy,TLH, bilateral salpingectomy, left oophorectomy, cystoscopy Anesthesia History Anesthesia History - spanish language lecturer: Anesthesia History - spanish language lecturer Hx Hospitalization No 04/29/25 08:25 Any Problems With Anesthesia Yes: PONV 04/29/25 08:25 Cholinesterase deficiency No 04/29/25 08:25 You/Your Family Experience No 04/29/25 08:25 fever (hyperthermia) with Relationship Recent Exposure to Contagious No 05/12/25 06:06 Disease Does patient have nerve No 04/29/25 08:25 stimulator Patient instructed to have device shut off --Does patient have Pacemaker No 05/12/25 06:06 or ICD? When Was Last Pacemaker Check QUESTION #4 FULL TEXT: You/Your Family Experience fever (hyperthermia) with Anesthesia Last Oral Intake Last Oral intake: Last Oral Intake NPO since 20:00 05/12/25 06:06 Meds taken in AM with sips of No 05/12/25 06:06 water? Meds patient instructed to take am of surgery PONV PONV - spanish language lecturer: PONV - spanish language lecturer Female Yes 04/29/25 08:25 HX of Motion Sickness No 04/29/25 08:25 HX of N/V After Surgery No 04/29/25 08:25 Non-Smoker Yes 04/29/25 08:25 Duration of Surgery greater Yes 04/29/25 08:25 than 60 minutes Number of Risk Factors 3 04/29/25 08:25 PONV Score Moderate Risk 04/29/25 08:25 Height & Weight Height & Weight: Anesthesia: Height & Weight Height 5 ft 1.5 in 05/12/25 06:06 Weight: 104.3 kg 05/12/25 06:06 Body Mass Index (BMI) 42.7 05/12/25 06:06 Respiratory Assessment Respiratory Assessment - spanish language lecturer: Respiratory Tract Infection Hx - spanish language lecturer Hx Respiratory Tract Infection No 04/29/25 08:25 STOP Sleep Apnea STOP Sleep Apnea - spanish language lecturer: STOP Sleep Apnea - spanish language lecturer Hx Hypertension No 04/29/25 08:25 Hx Sleep Apnea No 04/29/25 08:25 CPAP BIPAP Do you snore loudly (louder No 04/29/25 08:25 than talking or can be heard Do you often feel tired/ No 04/29/25 08:25 fatigued/ sleepy during daytime? Has anyone observed you stop No 04/29/25 08:25 breathing during sleep? STOP Results Negative 04/29/25 08:25 QUESTION #5 FULL TEXT : Do you snore loudly (louder than talking or can be heard through closed doors)? 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 Specify any problems Hx of Preganancy in last 3 No 04/29/25 08:25 Months Nurse Filling Out Transfusion MGRIGABINO 04/29/25 08:25 & Questions: Date: 04/29/25 04/29/25 08:25 Time: 08:27 04/29/25 08:25 Patient unable to answer at this time (ie. confused, unrespo /Reproduction History /Reproductive History - spanish language lecturer: /Reproductive Hx- spanish language lecturer Hx Now No 04/29/25 08:25 Gestational Age (in weeks): EDC: Hx Hx Para Hx Section SAB No 04/29/25 08:25 Active Medications Active Medications: Current Medications Generic Name Dose Route Start Last Admin Trade Name Freq PRN Reason Stop Dose Admin Acetaminophen 1,000 mg 05/12/25 07:30 05/12/25 06:13 Acetaminophen 500 Mg Tablet PO 05/12/25 07:31 1,000 mg PREOP ONE Administration Celecoxib 400 mg 05/12/25 07:30 05/12/25 06:13 Celecoxib 200 Mg Capsule PO 05/12/25 07:31 400 mg PREOP ONE Administration Dexamethasone Sodium Phosphate 8 mg 05/12/25 07:30 Dexamethasone 4 Mg/Ml Vial IV 05/12/25 07:31 INTRAOP ONE Enoxaparin Sodium 40 mg 05/12/25 07:30 05/12/25 06:11 Enoxaparin 40 Mg/0.4 Ml Syringe SC 05/12/25 07:31 40 mg PREOP ONE Administration Gabapentin 600 mg 05/12/25 07:30 Gabapentin 600 Mg Tablet PO 05/12/25 07:31 PREOP ONE Lactated Ringer's 1,000 mls @ 40 mls/hr 05/12/25 07:30 05/12/25 06:14 IV 40 mls/hr .Q25H KEVIN Administration Cefazolin Sodium 2 gm/ Sodium 110 mls @ 150 mls/hr 05/12/25 07:30 Chloride IV 05/12/25 08:13 INTRAOP ONE Metronidazole 500 mg in 100 mls @ 100 mls/hr 05/12/25 07:30 05/12/25 06:14 Flagyl IV 05/12/25 08:29 100 mls/hr INTRAOP ONE Administration Magnesium Sulfate 1 gm/ 102 mls @ 408 mls/hr 05/12/25 07:30 05/12/25 06:15 Dextrose IV 05/12/25 07:44 408 mls/hr INTRAOP ONE Administration Lactated Ringer's 1,000 mls @ 15 mls/hr 05/12/25 06:00 IV .Q48H KEVIN Insulin Human Lispro 0 unit 05/12/25 07:30 Insulin Lispro 100 Unit/Ml Insuln.Pen SC 05/12/25 13:30 Q4H PRN PRN BG >/= 180, SEE PROTOCOL Protocol Ondansetron HCl 4 mg 05/12/25 07:30 Ondansetron 4 Mg/2 Ml Vial IV 05/12/25 07:31 INTRAOP ONE Phenazopyridine HCl 190 mg 05/12/25 07:30 05/12/25 06:12 Phenazopyridine 95 Mg Tablet PO 05/12/25 07:31 190 mg PREOP ONE Administration Scopolamine HBr 1 patch 05/12/25 07:30 05/12/25 06:12 Scopolamine 1mg/72hr Patch TD 05/12/25 07:31 1 mg PREOP ONE Administration PFSH Medical History (Updated 05/10/25 @ 14:03 by Nati Knapp NP-C) Wears glasses Alcohol use Rash Low iron Migraine headache Non-smoker History of echocardiogram PONV (postoperative nausea and vomiting) BPPV (benign paroxysmal positional vertigo) Home Medications ?Medication ?Instructions ?Recorded ?Last Taken ?Type soqmjikobb-twgjyfjvazpka-vxjultaq 1 tab PO Q6H PRN Headache #40 tabs 07/10/17 Unknown Rx 50 mg-325 mg-40 mg tablet meclizine 25 mg tablet 25 mg PO TID PRN dizziness #30 tabs 10/03/22 Unknown Rx Allergy/AdvReac Type Severity Reaction Status Date / Time No Known Allergies Allergy Verified 04/29/25 08:22 Surgical History (Updated 04/29/25 @ 08:25 by Love Olivo) History of tonsillectomy and adenoidectomy History of Social History (Updated 07/31/18 @ 11:34 by Johnny CUENCA, PA) Smoking Status: Never smoker Review of Systems (Anesthesia) ROS Narrative System reviewed and no additional complaints, except as documented. Physical Exam Const alert and oriented x3 Nutritional Appearance: obese Resp normal respiratory effort, normal air movement and clear to auscultation bilaterally Cardio regular rate, regular rhythm, no murmurs and diaphoretic
[2025-05-12 07:05] LABS: Bedside Glucose 91 mg/dL (74-106)
--- NOTE | 2025-05-12 07:30 | UT_PTH ---
PATIENT: MICHAEL CARDENAS LOC: [facility] [place] U#:[id number] AGE/SX: 40/F ROOM: RE05/12/[address]: Dr. Yuliet Alejo MD : [id number] BED: DIS: 05/12/2025 SPEC #: [id number] RECD: 05/12/25 10:47 STATUS: JADE REQ #: [id number] KELIN: 05/12/25 07:[address]: Yuliet Alejo DEPT: SURGICAL PATHOLOGY RECD BY: Mack Jacobson ENTERED: 05/12/25 12:11 SP TYPE: UTERUS OTHR DR: Dr. Sanket Bennett MD Tissues: A - Uterus, NOS Procedures: Surgery Specimen Level V HEADER OPERATION: ERAS, total hysterectomy, bilateral salpingectomies PRE-OP DIAGNOSIS: Menorrhagia, dyspareunia, submucous uterine fibroid, iron deficiency anemia TISSUE SUBMITTED: A- Uterus, cervix, bilateral fallopian tubes, left ovary MICROSCOPIC DIAGNOSIS A. Uterus, uterine cervix, bilateral fallopian tubes, and left ovary, hysterectomy, bilateral salpingectomies, and left oophorectomy: * Squamous metaplasia and chronic cystic endocervicitis of the uterine cervix * Proliferative endometrium with superficial adenomyosis of the underlying myometrium * Two benign fallopian tubes without active inflammation * Hemorrhagic corpus luteal cyst of the left ovary with a few corpora lutea and albicantia, benign * Intramural leiomyomata of the uterine fundus, benign MICROSCOPIC DESCRIPTION Slides are reviewed. GROSS DESCRIPTION A. Received in formalin labeled with the patient's name and date of .? Designated as uterus, cervix, bilateral fallopian tubes, left ovary is a 91 g, 9.8 x 5.2 x 3.9 cm uterus with attached left adnexa and detached right fallopian tube.? The serosa is morales-pink to red and markedly cauterized (anterior) with patchy granularity and multiple subserosal leiomyomas (0.2 cm - 2.0 cm).? The attached cervix is morales-pink to red, focally sloughing (posterior) and measures 2.7 x 2.6; the 0.5 cm os is probe patent and expelling slightly hemorrhagic mucoid material. ?Mucoid containing cervical cysts are present. The specimen is inked as follows:Nyqzdgfj-zfofdMjmamwxms-pyqkjRobuvlqlqmk-orange. Opening reveals a 6.5 x 2.2 cm endometrial canal lined by morales-pink to red, focally lush and measures up to 0.2 cm thick. The myometrium is morales-pink with multiple intramural leiomyomas, 0.4 cm - 1.5 cm) and measures up to 2.6 cm thick. ? The pink-purple bilateral fallopian tubes are fimbriated and measure 5.6 x 0.4 cm cm (L) and 3.4 x 0.4 cm (R).? No paratubal cysts are identified.? The attached left ovary is morales-pink to red, solid to cystic and intact, 3.5 x 2.5 x 2.7 cm. ?The cut surfaces of the ovary range from morales-pink and solid to cystic containing straw-colored serous fluid. Supervisor Tunnel Heading sections are submitted as follows: A1: Anterior/posterior cervixA2: Anterior/posterior lower uterine segmentA3: Anterior endometrium and myometriumA4: Posterior endometrium and myometriumA5: Right fallopian tubeA6: Left fallopian tubeA7: Left ovaryA8: Subserosal leiomyomas ovaryA9: Intramural leiomyomas lesion DE 05/12/2025 CPT:63974
[2025-05-12] MEDS: dexAMETHasone 4 MG/ML Vial 8 MG IV (07:45)
[2025-05-12] MEDS: Cefazolin 2 GM in 0.9% Normal Saline (100mL Bag) 100 ML IV (08:02)
--- NOTE | 2025-05-12 09:31 | DCINST_ITS ---
Discharge Instructions Diet Discharge Diet: Light diet - advance as tolerated DC O2, CPAP, BIPAP needs Home O2 Discharge instructions: No Dressing / Incision Discharge Activity: May Drive (in 5-7 days when no longer taking narcotic pain medication) May resume sexual activity in: 6-8 weeks and - (Nothing in your vagina for 6 weeks. No vaginal or anal intercourse for 6-8 weeks) Dressing / Incision Call your doctor if your incision/area has: Continuous Slow Oozing, Increased Pain/ Swelling and Foul Smelling Discharge Call your doctor if you observe: Fever of 101 or Higher and Using more than 1 pad per hour Cleanse incision/area with: Soap & Water and - (Your incisions have skin glue, it can get wet, leave the glue on until it falls off. ) Follow Up Care Please Follow Up With: Yuliet Alejo MD When: With my office in 1-2 and 6 weeks or as needed. [phone] call or send a [email or web address] message for questions. Test Results: Test results from this visit will be discussed in further detail at your follow- up appointment, if applicable. Discharge Plan Admission Primary Reason for Your Visit: Total laparoscopic hysterectomy with left oophorectomy Attending Provider: Yuliet Alejo Primary Care Provider: Sanket Bennett Instructions Print Language: Tajik Discharge Orders/Prescriptions Prescriptions: New ibuprofen 600 mg tablet 600 mg PO Q6H PRN (Reason: Pain) 30 Days Qty: 60 1RF oxycodone 5 mg tablet 5 mg PO Q6H PRN PRN (Reason: severe pain) 7 Days Qty: 20 0RF docusate sodium [Colace] 100 mg capsule 100 mg PO BID PRN (Reason: constipation) 30 Days Qty: 60 0RF Rx Instructions: to keep stools soft Continued meclizine 25 mg tablet 25 mg PO TID PRN (Reason: dizziness) Qty: 30 0RF cbndcftqgf-thcswdulxzoze-crfq 1 TABLET tablet 1 tab PO Q6H PRN (Reason: Headache) Qty: 40 0RF Referrals / Follow Up: Care Physician,No Primary [Non-Staff] - Disposition Disposition (needs filled in before D/C Order can be placed): Home, Self Care
--- NOTE | 2025-05-12 09:32 | OP.PCM_ITS ---
Problems Associated Problem List Diagnoses (1) Submucous uterine fibroid: (2) Dyspareunia: (3) Menorrhagia: (4) Fe deficiency anemia: Operative Report (Standard) Operative Information Date of Procedure: 05/12/25 Pre-Operative Diagnosis: fibroid, menorrhagia, dyspareunia, fe def. 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: Yes Regulatory Affairs Strategy Specialist: Isabel De Leon MD, PGY4 Tasks completed by geological survey field assistant: Opening, Closing, Dissecting tissue, Insert Trochanter, Hemostasis: Electrocautery, Trocar and Retracting Additional nurse practitioner physicians assistant?: Yes Additional Hand Stripper #2: Isabel [place] Tasks completed by nurse practitioner physicians assistant #2: Closing, Altering tissue and Retracting Additional nurse practitioner physicians assistant?: No Type of Anesthesia: General RN Documented Start/Stop Times: Operation Date: 05/12/25 07:30 Case Time Into Pre-Op 05/12/25 05:47 Out of Pre-Op 05/12/25 07:26 Anesthesia Start 05/12/25 07:30 Into Room 05/12/25 07:30 Procedure Start 05/12/25 07:59 Procedure Start Time: 07:59 Procedure Stop Time: 09:41 Select all DRAINS/GRAFTS/IMPLANTS that apply: None Estimated Blood Loss: 30 Fluids Replaced: 1000 cc Specimen collected: Yes Description of specimen(s) removed: uterus, cervix, bilateral fallopian tubes, left ovary Description of surgery: The patient was taken to the operating room where she was prepped and draped in the dorsal lithotomy position. Her arms were tucked to the side and padded and her legs were placed in the yellowfin stirrups. Care was taken to ensure that she was placed in a neurologically safe and neutral position. A weighted speculum was placed in the vagina and the anterior lip of the cervix was grasped with a single-tooth tenaculum. The cervix sounded to 10 centimeters. 2-0 Vicryl sutures were secured to the cervix at 3 and 9:00. The Uterine maintenance parts technician was placed into the cervix and the balloon inflated. The stay sutures were placed through the cup and secured down to the cervix. Once the manipulator was secured to the cervix the Allison catheter was placed to straight drain. Attention was turned to the abdominal portion of the case. Before skin incisions were made they were infiltrated with 0.5% Marcaine solution for local anesthetic. A 5 mm intraumbilical incision was made and while tenting the anterior abdominal wall up with towel clamps a 5 mm blade less trocar and sleeve were advanced directly into the peritoneal cavity using the visiport. Peritoneal placement was confirmed with the laparoscope the pneumoperitoneum was created, and the underlying abdominal contents were intact. The patient was placed in Trendelenburg and the above findings were noted. Right and left lateral 5 mm trochars were placed under direct visualization without difficulty. The dense adhesions of the anterior abdominal wall were taken down with the LigaSure device. The entire anterior midline of the uterus was adhered. The adhesions of the anterior abdominal wall to the uterus were then taken down with the LigaSure device. The antimesenteric portion of the tube was clamped sealed and transected serially on the right side with the LigaSure device. The left ureter was identified and then the left infundibulopelvic ligament was clamped, sealed and transected. The round ligaments were clamped sealed and transected and a window was made in the peritoneum. The utero-ovarian ligaments were then clamped sealed and transected with the LigaSure device and the pedicles were hemostatic The bladder flap and any remaining anterior abdominal wall adhesions were dissected down with the LigaSure device and blunt dissection and the uterine arteries were then skeletonized. The uterine arteries were clamped sealed and transected on both sides with the LigaSure device. Then along the cardinal ligament uterine arteries adjacent to the cervix were clamped sealed and transected with the LigaSure device to move them away from the vaginal cuff angle. At this point the pedicles were all examined and found to be hemostatic. The bladder flap was rechecked and found to be adequately down. The monopolar tip of the LigaSure device was then used to enter the anterior vagina. The vaginal manipulator cup was noted in the vaginal colpotomy incision was made circumferentially around the cup. When the 3 and 9:00 positions of the cervicovaginal junction were reached these were clamped sealed and transected with the LigaSure device to secure any small remaining vessels. At this point the pedicles were hemostatic from above and attention was turned to the vaginal portion of the case again. The uterus was brought intact out through the vaginal colpotomy incision along with the tubes There is some bleeding from the left vaginal cuff angle and this was grasped with an Allis clamp. The posterior vaginal cuff was reapproximated to the periotoneum with 2-0 vicryl suture in a running standard fashion. Vaginal angle sutures were placed on both sides with 0 Vicryl sutures and care was taken to en sure that the uterosacral ligament was secured into this stitch. The remainder the vagina was then closed horizontally with interrupted 0 Vicryl sutures. The cuff was hemostatic vaginally. The Allison catheter was removed and a cystoscopy was performed. The bladder appeared normal and was intact. Both ureteral orifices were noted and both ureteral jets were seen. The cystoscope was removed and the Allison catheter was placed back to straight drain. A sponge stick was placed in the vagina to help place traction against the vaginal cuff and the pneumoperitoneum was re-created. The suction gate manager was used to remove any blood and clots from the peritoneal cavity. The pedicles were reexamined and found to be hemostatic. The vaginal cuff was hemostatic. Some Hemablast was placed over the cuff and the pedicles and no active bleeding was noted through the Hemablas. The right and left lateral ports were taken out and the sites were hemostatic. The pneumoperitoneum was released and even under low pressure there was no bleeding of any of the pedicles are vaginal cuff. The umbilical port was removed. The umbilical skin incisions were closed with Monocryl suture and skin glue by t princess assistants. The vaginal instruments were removed by me and a vaginal sweep was completed by me. The surgery was performed by me with assistance and I was present for the entire case. All sponge lap and needle counts were correct and the patient was transferred to the recovery room in stable condition. Surgical Findings: boggy uterus with small subserosal fibroids, adhesions of uterus to anterior abdominal wall, normal bilateral ovaries, tubes normal with evidence of previous partial salpingectomy Complications Complications: No Admit VTE Documentation VTE Present on Admission: No VTE Mechan Device Prophylaxis: SCD's VTE Pharm Prophylaxis ordered?: No Reason prophylaxis not ordered: Treatment Not Indicated
[2025-05-12] MEDS: Bupivacaine Mpf 0.5% 30 ML VIAL (09:35)
--- NOTE | 2025-05-12 10:06 | PCM.POST.ANE ---
Anesthesia: Postop Eval I Current Vital Signs Temperature: 97.1 F Pulse Rate: 77 Blood Pressure: 114/70 Respiratory Rate: 14 Pulse Ox: 96 Oxygen Delivery Method: Room Air Assessment Airway patent: Yes Spontaneous unlabored respirations: Yes Mental status: Awake and Calm nausea: No Vomiting: No Anesthesia Complication: No Fluid Hydration Crystalloid volume administer (ml): 1,000 Total IV fluid infused: 1,000 Progress Note Anesthesia document: Postop Eval 1 completed: Yes
[2025-05-12] MEDS: Lactated Ringers 1,000 ML 75 ML IV (10:08)
--- NOTE | 2025-05-12 11:32 | POSTOPAN2_ITS ---
Anesthesia Postop Eval I Sum Postop Eval Completion status Anesthesia document: Postop Eval 1 completed: Yes Anesthesia Postop Eval I Summary Anesthesia Postop Eval I Summary: Anesthesia Postop Eval I: Assessment Summary Airway patent Yes 05/12/25 10:06 [email or web address] [email or web address] Spontaneous unlabored Yes 05/12/25 10:06 UMBRELLA [email or web address] respirations Mental status Awake,Calm 05/12/25 10:06 UMBRELLA [email or web address] nausea No 05/12/25 10:06 UMBRELLA [email or web address].[email or web address] Vomiting No 05/12/25 10:06 UMBRELLA [email or web address].[email or web address] Anesthesia Postop Eval I: Fluid Summary Crystalloid volume administer 1,000 05/12/25 10:06 UMBRELLA [email or web address] (ml) Colloids volume administered ( ml) Blood Product volume administered (ml) Total IV fluid infused 1,000 05/12/25 10:06 UMBRELLA [email or web address] Anesthesia Postop Eval I: Summary Notes Anesthesia Complication No 05/12/25 10:06 [email or web address] [email or web address] Anesthesia Complication Comment: Post-operative progress note Anesthesia: Postop Eval II Evaluation Mental status: Awake Pain Level: 0 nausea: No Vomiting: No Complications Anesthesia Complication: No
--- NOTE | 2025-05-12 11:32 | PCM.POSTANE2 ---
Anesthesia Postop Eval I Sum Postop Eval Completion status Anesthesia document: Postop Eval 1 completed: Yes Anesthesia Postop Eval I Summary Anesthesia Postop Eval I Summary: Anesthesia Postop Eval I: Assessment Summary Airway patent Yes 05/12/25 10:06 ROUTER [email or web address] Spontaneous unlabored Yes 05/12/25 10:06 ROUTER [email or web address].[email or web address] respirations Mental status Awake,Calm 05/12/25 10:06 ROUTER [email or web address].[email or web address] nausea No 05/12/25 10:06 ROUTER OPERATOR.GDOTT Vomiting No 05/12/25 10:06 ROUTER [email or web address].[email or web address] Anesthesia Postop Eval I: Fluid Summary Crystalloid volume administer 1,000 05/12/25 10:06 ROUTER [email or web address].GDOTT (ml) Colloids volume administered ( ml) Blood Product volume administered (ml) Total IV fluid infused 1,000 05/12/25 10:06 ROUTER [email or web address].GDOTT Anesthesia Postop Eval I: Summary Notes Anesthesia Complication No 05/12/25 10:06 ROUTER OPERATOR.GDOTT Anesthesia Complication Comment: Post-operative progress note Anesthesia: Postop Eval II Evaluation Mental status: Awake Pain Level: 0 nausea: No Vomiting: No Complications Anesthesia Complication: No
[2025-05-12] MEDS: oxyCODONE 5 MG Tablet PO (12:04)
== END 2025-05-12 12:32 | disposition home or self-care (01) ==
LOC: SDC 05:30 → AC 05:31
PROVIDERS: PCP Family Medicine; Referring Provider Obstetrics & Gynecology; Visit Provider Obstetrics & Gynecology
PROC: 0UT94ZZ Resection of Uterus, Percutaneous Endoscopic Approach (ICD-10-PCS; CPT 58552; principal; 2025-05-12 07:10)
DX: D25.1 Intramural leiomyoma of uterus (principal); Z79.4 Long term (current) use of insulin; N92.0 Excessive and frequent menstruation with regular cycle; K66.0 Peritoneal adhesions (postprocedural) (postinfection); D50.0 Iron deficiency anemia secondary to blood loss (chronic); N94.10 Unspecified dyspareunia; K21.9 Gastro-esophageal reflux disease without esophagitis; E66.9 Obesity, unspecified; N87.9 Dysplasia of cervix uteri, unspecified; N72 Inflammatory disease of cervix uteri; N80.03 Adenomyosis of the uterus; N83.202 Unspecified ovarian cyst, left side; N83.12 Corpus luteum cyst of left ovary
CPT/HCPCS: 58552; 00944; 81025; 82962; 83735; 85027; 85610; 85730; 86850; 86900; 86901; 88307; J2405; J3475

== ENCOUNTER 2025-06-04 15:53 | Emergency (ER) | payer OTHER, SELFPAY ==
[2025-06-04 15:53] VITALS: BP 138/96; PULSE 91; RESP 18; TEMP 37.2; O2SAT 100; BMI 44.0
--- NOTE | 2025-06-04 15:57 | ED.VIS.FEGU ---
HPI <BANG Cohen - Last Filed: 06/04/25 18:08> HPI - Female History of Present Illness Chief Complaint: Vag Bleeding Narrative Narrative: 40-year-old female presents with vaginal bleeding. On 05/12/2025 she had a hysterectomy and right salpingectomy by Dr. Yuliet Alejo due to menorrhagia, fibroids, and dyspareunia. She was recovering well and today was on a walk when she felt suprapubic cramping and then had a gush of blood in her underwear and 1 clot. She has not really bled significantly since then. She called the on-call [employer] who recommended she come to the ED. She states she has been following the activity restrictions and has not had sexual intercourse and surgery. She is not on blood thinners. PFSH <BANG Cohen - Last Filed: 06/04/25 18:08> PFSH Medical History (Updated 06/04/25 @ 17:[address] David Marino, DO) Unilateral primary osteoarthritis, right hip Fe deficiency anemia Wears glasses Alcohol use Rash Low iron Migraine headache Non-smoker History of echocardiogram PONV (postoperative nausea and vomiting) BPPV (benign paroxysmal positional vertigo) Home Medications ?Medication ?Instructions ?Recorded ?Last Taken ?Type NK 06/04/25 Unknown History Allergy/AdvReac Type Severity Reaction Status Date / Time No Known Allergies Allergy Verified 06/04/25 15:59 Surgical History (Updated 06/04/25 @ 17:17 by BANG Cohen) History of tonsillectomy and adenoidectomy History of Social History (Updated 07/31/18 @ 11:34 by Johnny CUENCA PA) Smoking Status: Never smoker ROS <BANG Cohen - Last Filed: 06/04/25 18:08> ROS ED ROS Narrative Constitutional: Negative for fever, chills, malaise. GI: Positive for abdominal pain. No nausea, vomiting, diarrhea, constipation, melena, hematochezia. : Negative for dysuria, hematuria or frequency. EXAM <BANG Cohen - Last Filed: 06/04/25 18:08> Physical Exam Narrative Exam Narrative: CONST: Patient sitting in no acute distress. EYES: Normal inspection. NECK: Normal inspection. RESP: No respiratory distress, CTAB. CVS: Regular rate and rhythm, no murmur, no gallop. ABD: Soft and nontender, no guarding or rebound, nondistended. : Normal external genitalia. On speculum exam he is sutures at the vaginal cuff appear intact without dehiscence, small amount of symptoms. Dark brownish-red blood in the vaginal vault but no active hemorrhage. No clots. SKIN: Color normal, no rash, warm, dry, intact. EXTREMITIES: Normal appearance, no pedal edema. NEURO: Alert and answering questions appropriately. PSYCH: Normal affect. Const Vital Signs: 06/04/25 15:53 06/04/25 17:25 Temperature 98.9 F 97.7 F L Temperature Source Oral Pulse Rate 91 78 Respiratory Rate 18 16 Blood Pressure 138/96 H 124/78 H Blood Pressure Mean 110 93 Pulse Ox 100 97 <Dr. David Marino DO - Last Filed: 06/04/25 17:16> Physical Exam Const Vital Signs: 06/04/25 15:53 06/04/25 17:25 Temperature 98.9 F 97.7 F L Temperature Source Oral Pulse Rate 91 78 Respiratory Rate 18 16 Blood Pressure 138/96 H 124/78 H Blood Pressure Mean 110 93 Pulse Ox 100 97 MDM <BANG Cohen - Last Filed: 06/04/25 18:08> [facility] Narrative Medical decision making narrative: Differential: Postop bleeding, cuff dehiscence, UTI Consults: [employer] 40-year-old female is 3 weeks postop from a laparoscopic hysterectomy with Dr. Yuliet Alejo. Today while walking she developed some vaginal bleeding and suprapubic cramping. She appears well and nontoxic. Vital signs stable. Abdomen soft, benign. Speculum exam low cuff sutures appear intact without any active bleeding. I consulted [employer] and Dr. Estela Flood recommended that patient follow-up with their office next week. She did not think additional imaging was indicated. She recommended the patient avoid any type of strenuous activity. Urinalysis is negative. Patient was given a return precautions and discharged in stable condition. I have personally performed a face to face assessment of the patient and have reviewed the PAUL Note. I performed a substantive portion of the visit including all aspects of the following. My donovan findings include: History is [patient presents with vaginal bleeding that started suddenly this afternoon. [place] like she needed to use the restroom and noted large amount of blood in her underwear and a large clot. Patient 3 weeks postop laparoscopic hysterectomy by Dr. Alejo. Mild cramping in the center of her lower abdomen. Patient not anticoagulated. She denies any trauma to her vagina or recent intercourse.] Exam is [HEENT-PERRLA, EOMI. Cranial nerves II through XII grossly intact. TMs clear. Mucous membranes moist. No adenopathy. Cardiovascular-regular rate and rhythm without murmur or ectopy Lungs-clear to auscultation, chest wall stable without crepitus or subcu emphysema Abdomen-normoactive bowel sounds, soft. Mild suprapubic tenderness on palpation. No rebound, rigidity, or peritoneal signs Extremities-intact ?4, normal range of motion, normal pulses, atraumatic] Medical Decison Making [patient presents with vaginal bleeding 3 weeks postop hysterectomy. She clinically looks well. Seen in conjunction with physician preschool assistant principal who performed pelvic exam and was able to visualize the suture line and the cuff appeared intact without any active bleeding. There was some dried old looking brown blood in the vaginal vault. Physician preschool assistant principal discussed case with Dr. Sabiha Flood who is on-call for [employer]. She recommended outpatient follow-up with their office within the next 2 to 3 days. I did obtain a urinalysis and there was grossly no evidence of hematuria. Will discharge patient to home and advised to return if persistent heavy bleeding, worsening pain, or condition should worsen anyway.] Other additions or changes: [None] Lab Data Labs: Laboratory Results - last 24 hr 06/04/25 17:11 Urine Color Straw Urine Clarity Clear Urine pH 6.0 Ur Specific Boling 1.020 Urine Protein Negative Urine Glucose (UA) Normal Urine Ketones Negative Urine Occult Blood 150 H Urine Nitrite Negative Urine Bilirubin Negative Urine Urobilinogen Normal Ur Leukocyte Esterase Negative Urine RBC 0-5 SEEN Urine WBC 0-5 SEEN Ur Squamous Epith Cells 0-5 SEEN Urine Bacteria 0 SEEN Urine Mucus 0 SEEN <Dr. David Marino, DO - Last Filed: 06/04/25 17:16> MDM MDM Narrative Medical decision making narrative: I have personally performed a face to face assessment of the patient and have reviewed the PAUL Note. I performed a substantive portion of the visit including all aspects of the following. My donovan findings include: History is [patient presents with vaginal bleeding that started suddenly this afternoon. [place] like she needed to use the restroom and noted large amount of blood in her underwear and a large clot. Patient 3 weeks postop laparoscopic hysterectomy by Dr. Alejo. Mild cramping in the center of her lower abdomen. Patient not anticoagulated. She denies any trauma to her vagina or recent intercourse.] Exam is [HEENT-PERRLA, EOMI. Cranial nerves II through XII grossly intact. TMs clear. Mucous membranes moist. No adenopathy. Cardiovascular-regular rate and rhythm without murmur or ectopy Lungs-clear to auscultation, chest wall stable without crepitus or subcu emphysema Abdomen-normoactive bowel sounds, soft. Mild suprapubic tenderness on palpation. No rebound, rigidity, or peritoneal signs Extremities-intact ?4, normal range of motion, normal pulses, atraumatic] Medical Decison Making [patient presents with vaginal bleeding 3 weeks postop hysterectomy. She clinically looks well. Seen in conjunction with physician preschool assistant principal who performed pelvic exam and was able to visualize the suture line and the cuff appeared intact without any active bleeding. There was some dried old looking brown blood in the vaginal vault. Physician preschool assistant principal discussed case with Dr. Sabiha Flood who is on-call for [employer]. She recommended outpatient follow-up with their office within the next 2 to 3 days. I did obtain a urinalysis and there was grossly no evidence of hematuria. Will discharge patient to home and advised to return if persistent heavy bleeding, worsening pain, or condition should worsen anyway.] Other additions or changes: [None] Lab Data Labs: Laboratory Results - last 24 hr 06/04/25 17:11 Urine Color Straw Urine Clarity Clear Urine pH 6.0 Ur Specific Boling 1.020 Urine Protein Negative Urine Glucose (UA) Normal Urine Ketones Negative Urine Occult Blood 150 H Urine Nitrite Negative Urine Bilirubin Negative Urine Urobilinogen Normal Ur Leukocyte Esterase Negative Urine RBC 0-5 SEEN Urine WBC 0-5 SEEN Ur Squamous Epith Cells 0-5 SEEN Urine Bacteria 0 SEEN Urine Mucus 0 SEEN Discharge Plan Triage Chief Complaint: Vag Bleeding ED Midlevel Provider: Hollie Denton ED Provider: David Marino Dx/Rx/DC Orders Clinical Impression: Post-op bleeding, History of hysterectomy Instructions: ED Post Op Wound Check, Bleeding Prescriptions: No Action NK Primary Care Provider: Sanket Bennett Referrals: Sanket Bennett MD [Primary Care Provider] - Activity Restrictions/Additional Instructions: Avoid any strenuous activity over the weekend and call your [employer]IVER Friday to see if they would like to move up your postop appointment. If you have any further worsening symptoms like heavy bleeding, worsening abdominal pain etc. over the weekend please come back to the ER. Print Language: Panamanian Disposition Disposition: Home, Self Care Discharge Date/Time: 06/04/25 17:28
--- NOTE | 2025-06-04 16:00 | ED.RN ---
PT HAD A HYSTERECTOMY ON MAY 12, 2025 APROX 3 WEEKS AGO. PT WAS OUT WALKING AT THE [place]OR[place] AND HAD SOME LOWER ABD CRAMPING, SIMILAR TO MENSTRUAL CRAMPING. SHE WENT TO THE BATHROOM AND BLOOD HAD FILLED HER UNDERWEAR AND A LARGE CLOT WAS IN THE TOILET. PT CALLED [facility] AND THEY ADVISED HER TO COME TO THE ER. DR COLON DID THE PROCEDURE.
--- OUTSIDE RECORDS SUMMARY | 2025-06-04 16:21 | XMS RPT_ITS | CCD ---
Author Organization [facility] Care Team Providers Care Sales Support Associate Name Role Phone Sanket Cruz MD Primary Care Provider MD Romulo Templeton Primary Care Provider Unavaila MD Romulo Valdez Referring Provider Unavailable BANG Elliott Attending Provider Sanket Cruz MD Primary Care Provider Sanket Cruz MD Primary Care Provider Sanket Cruz MD Primary Care Provider Samson BRICK OR BLOCK MAKER.Funmilayo FELIX Unavailable Shena Dwyer PA-C Unavailable Mine Doty MD Unavailable Care Physician, No Primary Primary Care Provider Unavailable Dr. Erick Brownlee MD Attending Provider Dr. Erick Brownlee MD Referring Provider Sanket Cruz MD Primary Care Provider Sanket Cruz MD Primary Care Provider Pedro BRICK OR BLOCK MAKER.Tanya FELIX Unavailable Samson BRICK OR BLOCK MAKER.ELVIRA Funmilayo Unavailable Samson BRICK OR BLOCK MAKER.ELVIRA, Funmilayo Unavailable Shena Dwyer PA-C Unavailable BROOKE DUNCAN Attending Unavailable SANKET CRUZ Primary Care Unavailable TANYA VERNON Referring Unavailable BROOKE DUNCAN Attending Unavailable SANKET CRUZ Primary Care Unavailable SANKET CRUZ Primary Care Unavailable TANYA VERNON Referring Unavailable Reymundo SHERIDAN Shena Unavailable Nancy CHOUDHARY, Dr. Coles Primary Care Provider Melo CHOUDHARY, Dr. Horvath Attending Provider [phone] Melo CHOUDHARY, Dr. Horvath Referring Provider [phone] NANCY, SANKET A Primary Care Unavailable GRANT, PETRA Referring Unavailable NANCY, SANKET A Primary Care Unavailable GRANT, PETRA Referring Unavailable NANCY, SANKET A Primary Care Unavailable SOREN, KARMON Referring Unavailable NANCY, SANKET A Primary Care Unavailable NANCY, SANKET A Primary Care Unavailable REYMUNDO, SHENA Referring Unavailable NANCY, SANKET A Primary Care Unavailable SAMSON, FUNMILAYO Referring Unavailable NANCY, SANKET A Primary Care Unavailable KNOBLE, FUNMILAYO Referring Unavailable NANCY, SANKET A Primary Care Unavailable TIM YIP Attending Unavailable NANCY, SANKET A Primary Care Unavailable NANCY, SANEKT A Primary Care Unavailable NANCY, SANKET A Primary Care Unavailable SOREN, KARMON Referring Unavailable NANCY, SANKET A Referring Unavailable NANCY, SANKET A Primary Care Unavailable ERICK BROWNLEE Attending Unavailable NANCY, SANKET A Primary Care Unavailable SOREN, KARMON Referring Unavailable TIM YIP Attending Unavailable NANCY, SANKET A Primary Care Unavailable NANCY, SANKET A Primary Care Unavailable SOREN, KARMON Attending Unavailable NANCY, SANKET A Primary Care Unavailable REYMUNDO, SHENA Attending Unavailable NANCY, SANKET A Primary Care Unavailable TANYA VERNON Attending Unavailable GRANT, PETRA Referring Unavailable NANCY, SANKET A Primary Care Unavailable GRANT, PETRA Referring Unavailable NANCY, SANKET A Primary Care Unavailable TIM YIP Attending Unavailable NANCY, SANKET A Primary Care Unavailable SOREN, KARMON Referring Unavailable NANCY, SANKET A Primary Care Unavailable GRANT, PETRA Referring Unavailable GRANT, PETRA Attending Unavailable NANCY, SANKET A Primary Care Unavailable SHENA DWYER Referring Unavailable NANCY, SANKET A Primary Care Unavailable GRANT, PETRA Referring Unavailable NANCY, SANKET A Primary Care Unavailable SOREN, KARPARAS Attending Unavailable SOREN, KARMON Referring Unavailable NANCY, SANKET A Attending Unavailable NANCY, SANKET A Primary Care Unavailable NANCY, SANKET A Primary Care Unavailable NANCY, SANKET A Referring Unavailable SANKET CRUZ Attending Unavailable SANKET CRUZ Primary Care Unavailable Sanket Cruz Primary Care Unavailable Tim Yip Attending Unavailable Tim Yip Referring Unavailable Erick Brownlee Attending Unavailable Erick Brownlee Referring Unavailable Care Physician, No Primary Primary Care Unava ilable Erick Brownlee Attending Unavailable Erick Brownlee Referring Unavailable Sanket Cruz Primary Care Unavailable Erick Brownlee Consulting Unavailable Erick Brownlee Referring Unavailable Nati Knapp Attending Unavailable Sanket Cruz Primary Care Unavailable Allergies Allergy Classification Reported Allergen(s) Allergy Type Date of Onset Reaction(s) Facility (20 sources) acetaZOLAMIDE; Translations: [ACETAZOLAMIDE] Drug Allergy 05-16-2016 Other: See Comments [facility] Work Phone: Medications Current Medications Medication Drug Class(es) Dates Sig (Normalized) Sig (Original) acetaminophen 325 mg / butalbital 50 mg / caffeine 40 mg oral tablet (5 sources) Barbiturate, Central Nervous System Stimulant, Methylxanthine Start: 07-10-2017 Butalbital-Aceta minophen-Caff 1 TABLET tablet Active 1 {tbl} PO EVERY 6 HOURS as needed for Headache July 10, 2017 12:00am Start: 07-10-2017 take 1 tablet by king th every six hours Hejrckdngs-Jmwaqqgcmsbrs-Lkjb Active 1 T ABLET PO EVERY 6 [...] Aminoglycoside Antibacterial, Corticosteroid Start: 10-24-2022 End: 10-31-2022 Gbbdbdxn-Rwkqkg-QK-Thonzo nium (CORTISPORIN-TC) otic suspension Use 3 Drops in the right ear three times daily for 7 days. (Disp 1 bottle) 10 mL 0 10/24/2022 10/31/2022 Active Comment on above: Use 3 Drops in the right ear three times daily for 7 days. (Disp 1 bottle) docusate sodium 100 mg oral capsule (2 sources) Start: 05-12-2025 take 1 capsule by mouth twice daily as needed for constipation Docusate Sodium (Colace) 100 mg capsule Active 100 mg PO TWICE A DAY as needed for constipation 60 May 12, 2025 7:48am to keep stools soft ibuprofen 600 mg oral tablet (20 sources) Nonsteroidal Anti-inflammatory Drug Start: 05-12-2025 take 1 tablet by mouth every six hours as needed for pain Ibuprofen 600 mg tablet Active 600 mg PO EVERY 6 HOURS as needed for Pain 60 May 12, 2025 12:00am Start: 02-14-2022 End: 12-02-2024 take 1 tablet by mouth every six hours as needed ibuprofen (MOTRIN) 600 mg tablet Take 1 tablet by mouth every 6 hours as needed (pain). FOR PAIN. 02/14/2022 12/02/2024 Discontinued (Other) Comment on above: Take 1 tablet by [facility] every 6 hours as needed (pain). FOR PAIN. iv contrast (will be provided with radiology test) (2 sources) Start: 02-18-20 End: 02-19-20 inject 1 dose intravenously once iv contrast [...] Active meclizine hydrochloride 25 mg oral tablet (5 sources) Antiemetic Start: 10-03-2022 take 1 tablet [...] once daily. 30 tablet 6 12/02/2024 Active oxyCODONE hydrochloride 5 mg oral tablet (7 sources) Opioid Agonist Start: 05-12-2025 take 1 tablet by mouth every six hours as needed for pain Oxycodone 5 mg tablet Active 5 mg PO EVERY 6 HOURS NEEDED as needed for severe pain 12 06May 12, 2025 Start: 07-11-2017 End: 04-29-2025 take 1 tablet by mouth every six hours as needed for pain Oxycodone 5 MG tablet Discontinued 5 mg PO EVERY 6 HOURS NEEDED as needed for Pain July 11, 2017 12:00am April 29, 2025 8:23am DO NOT TAKE WITHIN 6 HOURS OF FIORICET perflutren lipid microspheres 1.3 mL in NaCl (PF) 0.9% 10 mL injection (DEFINITY) (6 sources) Start: 12-20-2020 End: 03-21-2022 perflutren lipid microspheres 1.3 mL in NaCl (PF) 0.9% 10 mL injection (DEFINITY) 125 ml sodium chloride 9 mg/ml prefilled syringe (6 sources) Start: 12-20-2020 End: 03-21-2022 sodium chloride 0.9 % (flush) 10 mL (BD POSIFLUSH) zonisamide 50 mg oral capsule (20 sources) Anti-epilepti c Agent Start: 02-17-2025 End: 06-09-2025 take 1 [...] at bedtime. Take 1 capsule by mo [facility] once daily. Take 1 capsule by mo [facility] once daily for 10 days. Completed/Discontinued Medications [...] Discontinued (Other) take 2 tablets by mo ut twice daily as needed acetaminophen (TYLENOL ARTHRITIS [...] Comment on above: Take 1 capsule by [facility] once daily. ciprofloxacin 3 mg/ml ophthalmic solution [...] Comment on above: Take 1 capsule by [facility] once daily. 24 hr ferrous sulfate 142 mg extended release oral tablet (20 sources) Start: End: take 1 tablet by mouth once daily Ferrous Sulfate (SLOW FE) 142 mg (45 mg iron) TbER Take 1 tablet by mouth once daily. 01/23/2021 12/02/2024 Discontinued (Other) Comment on above: Take 1 tablet by [facility] once daily. 10 ml iron sucrose 20 mg/ml injection [...] 200 mg, INTRAVENOUS, ONCE, 1 dose, On 02/21/25 at 1430, Please conduct a 30 minute post dose observation. Start: 02-16-2025 End: 02-16-2025 200 mg, INTRAVENOUS, ONCE, 1 dose, On 02/16/25 at 1030, Please conduct a 30 minute post dose observation. Start: 02-14-2025 End: 02-14-2025 200 mg, INTRAVENOUS, ONCE, 1 dose, On 02/14/25 at 0830, Please conduct a 30 minute [...] on above: Take as directed on package. norethindrone acetate 5 mg oral tablet (20 sources) Start: End: take 1 tablet by mouth once daily norethindrone (AYGESTIN) 5 mg tablet TAKE 1 TABLET BY MOUTH EVERY DAY 90 tablet 3 03/29/2025 05/19/2025 Discontinued omeprazole 20 mg delayed release oral capsule (16 sources) Proton Pump Inhibitor Start: End: take 1 capsule by mouth once daily before breakfast omeprazole (PRILOSEC) 20 mg capsule Indications: GERD without esophagitis Take 1 capsule by mouth daily before breakfast. 1/2 hr before meal. 30 capsule 5 06/25/2021 10/24/2022 Discontinued Comment on above: Take 1 capsule by mo ut daily before breakfast. 1/2 hr before meal. prednisoLONE acetate 10 mg/ml ophthalmic suspension (12 sources) Corticosteroid Start: 022 End: 024 prednisoLONE acetate (PRED FORTE) 1 % ophthalmic suspension 3 drops to affected ear three times a day. For 7 days 10 mL 11/08/2022 10/20/2024 Discontinued Comment on above: 3 drops to affected ear three times a day. For 7 days Prenatabs FA (5 sources) Start: 017 End: 025 Prenatabs FA Discontinued 1 {tbl} PO DAILY July 07, 2017 12:00am April 29, 2025 8:23am Start: 07-07-2017 Prenatabs FA * * Active 1 {tbl} PO DAILY July 07, 2017 12:00am Start: 07-07-2017 take 1 tablet by king th once daily Prenatabs FA Active 1 TABLET PO DAILY July 06, 2017 11:00pm topiramate 25 mg oral tablet (14 sources) Start: 11-19-2022 End: 10-20-2024 take 1 tablet by mouth twice daily [...] Comment on above: Take 1 tablet by king th twice daily. Start Topamax after stopping Zonegran. Problems Active Problems Problem Classification Problem Date Documented Date Episodic/Chronic Anxiety disorders (20 sources) Mixed anxiety and depressive disorder; Translations: [Other specified anxiety disorders] Onset: 06-25-2021 09-25-2021 Chronic Conditions associated with dizziness or vertigo (7 sources) Benign paroxysmal positional vertigo; Translations: [Benign paroxysmal vertigo, unspecified ear] Episodic Deficiency and other anemia (20 sources) Iron deficiency anemia due to blood loss; Translations: [Iron deficiency anemia secondary to blood loss (chronic)] Onset: 10-24-2022 02-14-2025 Chronic Deficiency and other anemia (1 source) Iron deficiency anemia secondary to blood loss [...] [Chronic fatigue, unspecified] Onset: 01-31-2025 01-31-2025 Chronic Menstrual disorders (20 sources) Menorrhagia; Translations: [Excessive and frequent menstruation with regular cycle] Onset: 05-16-2016 Resolved: 04-28-2017 04-28-2017 Chronic Nutritional deficiencies (20 sources) Vitamin D deficiency; Translations: [Vitamin D deficiency, unspecified] Onset: 02-10-2014 08-04-2014 Chronic Osteoarthritis (20 sources) Arthritis of right hip; Translations: [Unilateral primary osteoarthritis, right hip] Onset: 12-30-2024 12-30-2024 Chronic Other aftercare (1 source) Surgical follow-up; Translations: [Encounter for follow-up examination after completed treatment for conditions other than malignant neoplasm] 05-19-2025 Episodic Other aftercare (1 source) Encounter for follow-up examination after completed treatment for conditions other than malignant neoplasm; Translations: [Postop check] Onset: 05-19-2025 Episodic Other ear and sense organ disorders [...] unspecified; Translations: [Abnormal uterine bleeding (AUB)] Onset: 01-20-2025 Chronic Other nervous system disorders (20 sources) [...] [Chronic intractable headache, unspecified headache type] Onset: 01-03-2025 Chronic Other nervous system disorders (2 sources) Postoperative pain ; Translations: [Other acute postprocedural pain] 05-12-2025 Episodic Other non-traumatic joint disorders (3 sources) Pain in right hip; Translations: [Chronic right hip pain] Onset: 01-03-2025 Episodic Other nutritional; endocrine; and metabolic disorders [...] conditions (not mental disorders or infectious disease) (14 sources) Mammography abnormal; Translations: [Other abnormal and [...] [Pelvic and perineal pain] Onset: 02-24-2025 Episodic Benign neoplasm of uterus (20 sources) Subserous leiomyoma of uterus; Translations: [Subserosal leiomyoma of uterus] Onset: 02-24-2025 02-24-2025 Episodic Contraceptive and procreative management (20 sources) Sterilization [...] Translations: [Other malaise] Onset: 01-20-2025 01-20-2025 Episodic Nonmalignant breast conditions (5 sources) Lump in left breast; Translations: [Unspecified lump in the left breast, unspecified quadrant] Onset: 11-03-2024 10-09-2023 Episodic Nutritional deficiencies (20 sources) Serum iron low; Translations: [Iron deficiency] Onset: 01-23-2021 01-23-2021 Episodic Other aftercare (20 sources) Patient encounter status; Translations: [alf (current) use of non-steroidal anti-inflammatories (NSAID)] Onset: 08-04-2014 08-04-2014 Episodic Other aftercare (20 sources) 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 SURGERY AND DATE: 05/12/25 TLH, LSO PATHOLOGY: pending SUBJECTIVE/INTERVAL HISTORY: Michael Castro reports that she feels well. No fever or chills. Still a little cough, no chest pain. No incisional redness, swelling, or drainage. Patient reports that her appetite is fair. No vaginal bleeding. Denies constipation, urinating well. SENSITIVE EXAM: Sensitive exam not performed. OBJECTIVE: ABDOMEN: Abdomen soft, non-tender, no hepatosplenomegaly. Incisions healing ewll PE ASSESSMENT: postop check PLAN: 1. Discussed results of pathology and implications with patient. 2. Postop restrictions reviewed. Tim Yip MD Allergies As of Date: 05/19/2025 Noted Allergy Reaction DIAMOX (ACETAZOLAMIDE) 05/16/2016 14 - Other: See Comments Comments: Numbness in hands and feet Date Reviewed: 04/26/2025 Reviewed by: Angie Crawford RN - Fully Assessed Reason for Visit: Post-Op Visit [1236] Primary Visit Diagnosis:Postop check [Z09] Prescriptions as of 05/19/2025 - zonisamide (ZONEGRAN) 50 mg capsule Take 1 capsule by mouth once daily. - acetaminophen (TYLENOL ARTHRITIS ORAL) Take 2 tablets by mouth two times a day as needed. - meloxicam (MOBIC) 15 mg tablet Take 1 tablet by mouth once daily. Problem List As Of Date 05/19/2025 Noted Resolved SUPERVIS NORMAL 1ST PREG [Z34.00] [...] los*10/24/2022 Arthritis of right hip [M16.11] 12/30/2024 Chronic pelvic pain in female [R10.2, G89.29] 02/24/2025 Fibroids, subserous [D25.2] 02/24/2025 Medications Discontinued During This Encounter Prescriptions - norethindrone (AYGESTIN) 5 mg tablet (Discontinued) TAKE 1 TABLET BY MOUTH EVERY DAY Encounter Status:Closed by TIM YIP on 05/19/25 Normal [facility] Bedside Glucoseon 05-12-2025 FINGERSTICK GLU 91 mg/dL Normal 74-106 [facility] Comment on above: Result Comment: [place] OF PATIENT CARE PER NURSING PROTOCOL Performed By: #### L 501.080 ####[facility] [id number] [place], [address] CNOPon 05-12-2025 CNOP Operative Note (Enc) (OBGYWM) Encounter Status:Closed by TIM YIP on 05/13/25 Normal [facility] Discharge Instructionon 04-[address] [facility] Medical Records Department [address] [place] [address] Instructions for Home/Discharge Instructions 05/12/25 0931 MR#: [id number] Acct: [id number] Name: MICHAEL CASTRO Rep #: [id number] : 1985 40 From: Tim Yip MD PCP: Dr. Sanekt Cruz MD Status:REG [facility] Discharge Instructions Diet Discharge Diet: Light diet - advance as tolerated DC O2, CPAP, BIPAP needs Home O2 Discharge instructions: No Dressing / Incision Discharge Activity: May Drive (in 5-7 days when no longer taking narcotic pain medication) May resume sexual activity in: 6-8 weeks and - (Nothing in your vagina for 6 weeks. No vaginal or anal intercourse for 6-8 weeks) Dressing / Incision Call your doctor if your incision/area has: Continuous Slow Oozing, Increased Pain/ Swelling and Foul Smelling Discharge Call your doctor if you observe: Fever of 101 or Higher and Using more than 1 pad per hour Cleanse incision/area with: Soap Water and - (Your incisions have skin glue, it can get wet, leave the glue on until it falls off. ) Follow Up Care Please Follow Up With: Tim Yip MD When: With my office in 1-2 and 6 weeks or as needed. [phone] call or send a [employer] message for questions. Test Results: Test results from this visit will be discussed in further detail at your follow-up appointment, if applicable. Discharge Plan Admission Primary Reason for Your Visit: Total laparoscopic hysterectomy with left oophorectomy Attending Provider: Tim Yip Primary Care Provider: Sanket Cruz Instructions Print Language: Danish Discharge Orders/Prescriptions Prescriptions: New ibuprofen 600 mg tablet 600 mg PO Q6H PRN (Reason: Pain) 30 Days Qty: 60 1RF oxycodone 5 mg tablet 5 mg PO Q6H PRN PRN (Reason: severe pain) 7 Days Qty: 20 0RF docusate sodium [Colace] 100 mg capsule 100 mg PO BID PRN (Reason: constipation) 30 Days Qty: 60 0RF Rx Instructions: to keep stools soft Continued meclizine 25 mg tablet 25 mg PO TID PRN (Reason: dizziness) Qty: 30 0RF butalbital-acetaminop hen-caff 1 TABLET tablet 1 tab PO Q6H PRN (Reason: Headache) Qty: 40 0RF Referrals / Follow Up: Care Physician,No Primary [Non-Staff] - Disposition Disposition (needs filled in before D/C Order can be placed): Home, Self Care 05/12/25 0932 Tim Yip MD CC: Dr. Sanket Cruz MD Signed Normal [facility] Glucose measurement at [facility] deOrdered By: Tim Yip on 05-12-2025 Glucose [Mass/Vol] 91 mg/dL 74-106 [facility] Comment on above: MANAGEMENT OF PATIEN T CARE PER NURSING PROTOCOL MR/POSTOP.ANEon 05-12-2025 MR/POSTOP.ANE [facility] Medical Records Department [address] [place] [address] Anesthesia Postop Eval I 05/12/25 1006 MR#: [id number] Acct: [id number] Name: MICHAEL CASTRO Rep #: [id number] : 1985 40 From: Hyacinth Duron CRNA PCP: Dr. Sanket Cruz MD Status:REG SDC Y Race: AA Location: [place] [address] Anesthesia: Postop Eval I Current Vital Signs Temperature: 97.1 F Pulse Rate: 77 Blood Pressure: 114/70 Respiratory Rate: 14 Pulse Ox: 96 Oxygen Delivery Method: Room Air Assessment Airway patent: Yes Spontaneous unlabored respirations: Yes Mental status: Awake and Calm nausea: No Vomiting: No Anesthesia Complication: No Fluid Hydration Crystalloid volume administer (ml): 1,000 Total IV fluid infused: 1,000 Progress Note Anesthesia document: Postop Eval 1 completed: Yes 05/12/25 1006 Date Hyacinth Duron CRNA Cosigner Signature: Date CC: Signed Normal [facility] MR/[id number] 05-12-2025 [facility] Medical Records Department [address] [place] [address] Anesthesia Postop Eval II 05/12/25 1132 MR#: [id number] Acct: [id number] Name: MICHAEL CASTRO Rep #: [id number] : 1985 40 From: Kamron Wing MD PCP: Dr. Sanket Cruz MD Status:REG SDC Y Race: AA Location: [place] [address] Anesthesia Postop Eval I Sum Postop Eval Completion status Anesthesia document: Postop Eval 1 completed: Yes Anesthesia Postop Eval I Summary Anesthesia Postop Eval I Summary: Anesthesia Postop Eval I: Assessment Summary Airway patent Yes 05/12/25 10:06 [email or web address] Spontaneous unlabored Yes 05/12/25 10:06 [email or web address] respirations Mental status Awake,Calm 05/12/25 10:06 [email or web address] nausea No 05/12/25 10:06 BAG [email or web address] Vomiting No 05/12/25 10:06 BAG [email or web address] Anesthesia Postop Eval I: Fluid Summary Crystalloid volume administer 1,000 05/12/25 10:06 BAG [email or web address] (ml) Colloids volume administered ( ml) Blood Product volume administered (ml) Total IV fluid infused 1,000 05/12/25 10:06 BAG [email or web address] Anesthesia Postop Eval I: Summary Notes Anesthesia Complication No 05/12/25 10:06 BAG [email or web address] Anesthesia Complication Comment: Post-operative progress note Anesthesia: Postop Eval II Evaluation Mental status: Awake Pain Level: 0 nausea: No Vomiting: No Complications Anesthesia Complication: No 05/12/25 1132 Date Kamron Wing MD Cosigner Signature: Date CC: Signed Normal [facility] Operative Reporton 5 Operative Report [facility] Medical Records Department [address] [facility] [place] [address] Operative Report 05/12/25 0932 MR#: [id number] Acct: [id number] Name: MICHAEL CASTRO Rep #: [id number] : 1985 40 From: Tim Yip MD PCP: Dr. Sanket Cruz MD Status:REG [facility] Location: [place] [address] Problems Associated Problem List Diagnoses (1) Submucous uterine fibroid: (2) Dyspareunia: (3) Menorrhagia: (4) Fe deficiency anemia: Operative Report (Standard) Operative Information Date of Procedure: 05/12/25 Pre-Operative Diagnosis: fibroid, menorrhagia, dyspareunia, fe def. anemia of chronic blood loss Post-Operative Diagnosis: same Surgery/Procedure Performed: TLH, LSO, right salpingectomy and cystoscopy ux lead: Yes Auto Body Repair Teacher: Isabel De Leon MD, PGY4 Tasks completed by hearing and speech assistant: Opening, Closing, Dissecting tissue, Insert Trochanter, Hemostasis: Electrocautery, Trocar and Retracting Additional account management assistant?: Yes Additional Core Manager #2: Isabel Zee Tasks completed by account management assistant #2: Closing, Altering tissue and Retracting Additional account management assistant?: No Type of Anesthesia: General RN Documented Start/Stop Times: Operation Date: 05/12/25 07:30 Case Time Into Pre-Op 05/12/25 05:47 Out of Pre-Op 05/12/25 07:26 Anesthesia Start 05/12/25 07:30 Into Room 05/12/25 07:30 Procedure Start 05/12/25 07:59 Procedure Start Time: 07:59 Procedure Stop Time: 09:41 Select all DRAINS/GRAFTS/IMPLANT S that apply: None Estimated Blood Loss: 30 Fluids Replaced: 1000 cc Specimen collected: Yes Description of specimen(s) removed: uterus, cervix, bilateral fallopian tubes, left ovary Description of surgery: The patient was taken to the operating room where she was prepped and draped in the dorsal lithotomy position. Her arms were tucked to the side and padded and her legs were placed in the yellowfin stirrups. Care was taken to ensure that she was placed in a neurologically safe and neutral position. A weighted speculum was placed in the vagina and the anterior lip of the cervix was grasped with a single-tooth tenaculum. The cervix sounded to 10 centimeters. 2-0 Vicryl sutures were secured to the cervix at 3 and 9:00. The Uterine student worker was placed into the cervix and the balloon inflated. The stay sutures were placed through the cup and secured down to the cervix. Once the manipulator was secured to the cervix the Allison catheter was placed to straight drain. Attention was turned to the abdominal portion of the case. Before skin incisions were made they were infiltrated with 0.5% Marcaine solution for local anesthetic. A 5 mm intraumbilical incision was made and while tenting the anterior abdominal wall up with towel clamps a 5 mm blade less trocar and sleeve were advanced directly into the peritoneal cavity using the visiport. Peritoneal placement was confirmed with the laparoscope the pneumoperitoneum was created, and the underlying abdominal contents were intact. The patient was placed in Trendelenburg and the above findings were noted. Right and left lateral 5 mm trochars were placed under direct visualization without difficulty. The dense adhesions of the anterior abdominal wall were taken down with the LigaSure device. The entire anterior midline of the uterus was adhered. The adhesions of the anterior abdominal wall to the uterus were then taken down with the LigaSure device. The antimesenteric portion of the tube was clamped sealed and transected serially on the right side with the LigaSure device. The left ureter was identified and then the left infundibulopelvic ligament was clamped, sealed and transected. The round ligaments were clamped sealed and transected and a window was made in the peritoneum. The utero-ovarian ligaments were then clamped sealed and transected with the LigaSure device and the pedicles were hemostatic The bladder flap and any remaining anterior abdominal wall adhesions were dissected down with the LigaSure device and blunt dissection and the uterine arteries were then skeletonized. The uterine arteries were clamped sealed and transected on both sides with the LigaSure device. Then along the cardinal ligament uterine arteries adjacent to the cervix were clamped sealed and transected with the LigaSure device to move them away from the vaginal cuff angle. At this point the pedicles were all examined and found to be hemostatic. The bladder flap was rechecked and found to be adequately down. The monopolar tip of the LigaSure device was then used to enter the anterior vagina. The vaginal manipulator cup was noted in the vaginal colpotomy incision was made circumferentially around the cup. When the 3 and 9:00 positions of the cervicovaginal junction were reached these were clamped sealed and transected with the LigaSure device to secure any small remainin (more content not included)... Normal [facility] ,Urineon 05-12-2025 Beta HCG ( test) Ql (U) Negative [facility] Comment on above: Result Comment: Very dilute urine specimens, as indicated by a low specific gravity, may not contain auto service representative levels of hCG. If is still suspected, a first morning urine specimen should be collected 48 hours later and tested. Performed By: #### L 400.7600 ####[facility] [id number] [place], [address] Surgery Specimen Level Von 0 05-12-2025 Surgery Specimen Level V ------ -------- Patient Age/Sex Location Account Attending Physician -------- MICHAEL CASTRO 40/F [facility] [id number] Dr. Tim Yip MD -------- Specimen: [id number] Received: 05/12/25 Status: JADE Christine Num: [id number] Spec Type: UTERUS Subm Dr: Dr. Tim Yip MD HEADER OPERATION: ERAS, total hysterectomy, bilateral salpingectomies PRE-OP DIAGNOSIS: Menorrhagia, dyspareunia, submucous uterine fibroid, iron deficiency anemia TISSUE SUBMITTED: A- Uterus, cervix, bilateral fallopian tubes, left ovary -------- MICROSCOPIC DIAGNOSIS A. Uterus, uterine cervix, bilateral fallopian tubes, and left ovary, hysterectomy, bilateral salpingectomies, and left oophorectomy: * Squamous metaplasia and chronic cystic endocervicitis of the uterine cervix * Proliferative endometrium with superficial adenomyosis of the underlying myometrium * Two benign fallopian tubes without active inflammation * Hemorrhagic corpus luteal cyst of the left ovary with a few corpora lutea and albicantia, benign * Intramural leiomyomata of the uterine fundus, benign MICROSCOPIC DESCRIPTION Slides are reviewed. GROSS DESCRIPTION A. Received in formalin labeled with the patient's name and date of .??? Designated as uterus, cervix, bilateral fallopian tubes, left ovary is a 91 g, 9.8 x 5.2 x 3.9 cm uterus with attached left adnexa and detached right fallopian tube.??? The serosa is morales-pink to red and markedly cauterized (anterior) with patchy granularity and multiple subserosal leiomyomas (0.2 cm - 2.0 cm).??? The attached cervix is morales-pink to red, focally sloughing (posterior) and measures 2.7 x 2.6; the 0.5 cm os is probe patent and expelling slightly hemorrhagic mucoid material. ???Mucoid containing cervical cysts are present. The specimen is inked as follows:Anterior-gree nPosterior-blackParam etrium-orange. Opening reveals a 6.5 x 2.2 cm endometrial canal lined by morales-pink to red, focally lush and measures up to 0.2 cm thick. The myometrium is morales-pink with multiple intramural leiomyomas, 0.4 cm - 1.5 cm) and measures up to 2.6 cm thick. ??? The pink-purple bilateral fallopian tubes are fimbriated and measure 5.6 x 0.4 cm cm (L) and 3.4 x 0.4 cm (R).??? No paratubal cysts are identified.??? The attached left ovary is morales-pink to red, solid to cystic and intact, 3.5 x 2.5 x 2.7 cm. ???The cut surfaces of the ovary range from morales-pink and solid to cystic containing straw-colored serous fluid. Director Of Human Resources sections are submitted as follows: A1: Anterior/posterior cervixA2: Anterior/posterior lower uterine segmentA3: Anterior endometrium and myometriumA4: Posterior endometrium and myometriumA5: Right fallopian tubeA6: Left fallopian tubeA7: Left ovaryA8: Subserosal leiomyomas ovaryA9: Intramural -------- Patient Age/Sex Location Account Attending Physician -------- MICHAEL CASTRO 40/F [facility] [id number] Dr. Tim Yip MD -------- leiomyomas lesion [place] 05/12/2025 CPT:72498 -------- Patient Age/Sex Location Account Attending Physician -------- MICHAEL CASTRO 40/F [facility] [id number] Dr. Tim Yip MD -------- Signed (signature on file) Dr. Pradeep Juarez MD 05/25/25 1327 -------- Normal [facility] Comment on above: Performed By: #### P SUV #### [facility] Laboratory [facility] [place], [address] Urine testOrdered By: Tim Yip on 05-12-2025 HCG ( test) Ql (U) Negative [facility] Comment on above: Very dilute urine sp ecimens, as indicated by a low specificgravity, may not contain auto service representative levels of hCG. If is still suspected, a first morning urinespecimen should be collected 48 hours later and tested. DBT Breast - left diagnostic for implanton [...] Yanci Segura M.D. Electronically signed on: 05/10/2025 Podiatrist Assistant: TULIO Transcried Date/Time: May 10 2025 8:17A Dictated by: YANCI SEGURA MD This examination was interpreted and the report reviewed and electronically signed by: YANCI SEGURA MD on May 10 2025 9:02AM [facility] DIVISION OF RADIOLOGY * * *Final Report* * * DATE OF EXAM: May 10 2025 8:29AM [facility] 0628 - SARATH DIAG W DIANN LT / PROCEDURE REASON: Abnormal mammogram * * * * Physician Interpretation * * * * RESULT: [place] [address] #[id number] - SARATH [employer] W DIANN LT #[id number] - [facility] BREAST [facility] HISTORY: 40 year-old patient presents for short [...] the imaged area. DIVISION OF RADIOLOGY Provider, Florence Lauri [facility] - 05/10/2025 * * *Final Report* * * DATE OF EXAM: May 10 2025 8:29AM [facility] 0628 - [facility] DIAG W DIANN LT / PROCEDURE REASON: Abnormal mammogram * * * * Physician Interpretation * * * * RESULT: [place] [address] #[id number] - [facility] DIAG W DIANN LT #[id number] - [facility] US BREAST LTD LT HISTORY: 40 year-old [...] Yanci Segura M.D. Electronically signed on: 05/10/2025 Podiatrist Assistant: TULIO Transcribe Date/Time: May 10 2025 8:17A Dictated by: YANCI SEGURA MD This examination was interpreted and the report reviewed and electronically signed by: YANCI SEGURA MD on May 10 2025 9:02AM EST [facility] Inj/Asp Jarett Jt Should/Hip/Kn eeon 05-10-2025 Inj/Asp Jarett Jt Should/Hip/Knee [facility] Imaging Services [address] [place] [address] [id number] Inj/Asp Jarett Jt Should/Hip/Knee MR#: [id number] Acct: [id number] Name: MICHAEL CASTRO Rep #: [id number] : 1985 F 40 From: Luís pantoja MD PCP: Dr. Sanket Cruz MD [facility] Study: Inj/Asp Jarett Jt Should/Hip/Knee Date of Exam: 0 05/10/25 Exam# [id number] Ordering Dr: Erick Brownlee MD PROCEDURE: INJ/ASP JARETT JT SHOULD/HIP/KNEE 05/10/2025 REASON FOR EXAM: UNILATERAL PRIMARY OSTEOARTHRITIS, RIGHT HIP TECHNIQUE: INJ/ASP JARETT JT SHOULD/HIP/KNEE. The procedure as well as the benefits and possible complications including infection and bleeding were explained to the patient. Informed consent was obtained. The overlying skin was prepped and draped in the usual sterile fashion. Following local anesthetic application, a 22 gauge spinal needle was placed into the hip joint. 2 cc of Isovue-300 was injected for confirmation. Following this, injection of medication was performed. The patient tolerated the procedure well. 1 minute and 59 seconds of fluoroscopy. 76.3 mGy. 3 spot images were submitted. COMPARISON: None FINDINGS: Successful right shoulder injection. RAD/Inj/Asp Jarett Jt Should/Hip/Knee IMPRESSION: Patient tolerated the procedure well. Reading Location: [place] [address] CC: Dr. Erick Brownlee MD; Dr. Sanket Cruz MD Podiatrist Assistant: Signed Normal [facility] SARATH DIAG W DIANN LTon 025 SARATH DIAG W DIANN LT * * *Final Report* * * DATE OF EXAM: May 10 2025 8:29AM [facility] 0628 - SARATH DIAG W DIANN LT / PROCEDURE REASON: Abnormal mammogram * * * * Physician Interpretation * * * * RESULT: [place] [address] #[id number] - SARATH DIAG W DIANN LT #[id number] - [facility] US BREAST LTD LT HISTORY: 40 year-old [...] no suspicious findings in the imaged area. IMPRESSION: There is no mammographic or sonographic [...] Yanci Segura M.D. Electronically signed on: 05/10/2025 Podiatrist Assistant: TULIO Transcried Date/Time: May 10 2025 8:17A Dictated by: YANCI SEGURA MD This examination was interpreted and the report reviewed and electronically signed by: YANCI SEGURA MD on May 10 2025 9:02AM EST [id number] Normal [facility] [employer] US BREAST LTD LTon 05-10 [employer] BREAST LTD LT * * *Final Report* * * DATE OF EXAM: May 10 2025 8:57AM [facility] 0593 - [employer] BREAST [employer] LT / PROCEDURE REASON: Abnormal mammogram * * * * Physician Interpretation * * * * [place] [address] #[id number] - [facility] YOUSUF TIDWELL LT #[id number] - [facility] [employer] BREAST [employer] LT HISTORY: 40 year-old patient presents for [...] no suspicious findings in the imaged area. IMPRESSION: There is no mammographic or sonographic [...] Yanci Segura M.D. Electronically signed on: 05/10/2025 Podiatrist Assistant: TULIO Transcribe Date/Time: May 10 2025 8:47A Dictated by : YANCI SEGURA MD This examination was interpreted and the report reviewed and electronically signed by: YANCI SEGURA MD on May 10 2025 9:02AM EST [id number] Normal [facility] No Panel InformationOrdered By: Ccf Provider on 05-10-2025 [facility] No Panel Informationon 05-10 Radiology Study observation (narrative) Joelle cardoso [facility] Operative Reporton Operative Report [facility] Medical Records Department [address] [place] [address] Operative Report 05/10/25 1401 MR#: [id number] Acct: [id number] Name: GLORIAMICHAEL MILLAN Rep #: [id number] : 1985 40 From: Nati SANDRA PCP: Dr. Sanket Cruz MD Status:DEP CLI Location: RAD Problems Associated Problem List Diagnoses (1) Right hip pain: (2) Unilateral primary osteoarthritis, right hip: Multi [facility] Radiology Rad Xray Procedures: 18499 Inj Asp major Joint - Hip, Knee and 54142-63 Fluoroscopic guidance for needle placement Operative Report (Standard) Operative Information Date of Procedure: 05/10/25 Pre-Operative Diagnosis: Right hip pain Post-Operative Diagnosis: Right hip pain Surgery/Procedure Performed: Fluoroscopic guided right hip injection ux lead: No Type of Anesthesia: Local Procedure Start Time: 13:38 Procedure Stop Time: 13:56 Select all DRAINS/GRAFTS/IMPLANT S that apply: None Estimated Blood Loss: 0 Specimen collected: No Description of surgery: PROCEDURE: Fluoroscopic Guided right hip injection ORDERING PROVIDER: Dr. Brownlee INDICATION: Female, 40 years old. Right hip pain. PROVIDER: ANTOLIN Carrasco FLUOROSCOPY TIME: 1 minutes/59 seconds. 43.5 mGy CONSENT: The risks, benefits, and alternatives to the procedure were explained to the patient. The specific risks of bleeding, infection, and neurovascular injury were detailed and accepted. Witnessed informed consent was obtained. TECHNIQUE: The right hip access site was prepped with chlorhexidine and draped in sterile fashion. 2% Lidocaine was administered subcutaneously for local anesthesia. A 22-gauge spinal needle was positioned under radiographic fluoroscopic localization. Approximately 2 cc of Isovue 300 instilled for localization purposes. Medication was then injected. MEDICATIONS: 80 mg of Kenalog and 3 ml of 0.5% bupivacaine. The spinal needle was removed, and a dressing was applied. The patient tolerated the procedure well without any immediate complications. The procedure was proctored by interventional radiologist Dr. Hemphill. IMPRESSION: Successful fluoroscopic guided right hip injection. Surgical Findings: None Complications Complications: No 05/10/25 1409 Cosigner Signature (if applicable): 05/31/25 0743 CC: JOCY Knapp; Dr. Erick Brownlee MD; Dr. Luís Hemphill MD; Dr. Sanket Cruz MD Signed Normal [facility] US Breast - left limitedon 0 05-10-2025 [...] Yanci Segura M.D. Electronically signed on: 05/10/2025 Podiatrist Assistant: TULIO Transcribe Date/Time: May 10 2025 8:47A Dictated by : YANCI SEGURA MD This examination was interpreted and the report reviewed and electronically signed by: YANCI SEGURA MD on May 10 2025 9:02AM [facility] DIVISION OF RADIOLOGY * * *Final Report* * * DATE OF EXAM: May 10 2025 8:57AM [facility] 0593 - [facility] [employer] BREAST LTD LT / PROCEDURE REASON: Abnormal mammogram * * * * Physician Interpretation * * * * [place] [address] #[id number] - [facility] GENNARO W DIANN LT #[id number] - [facility] [employer] BREAST LTD LT HISTORY: 40 year-old patient [...] the imaged area. DIVISION OF RADIOLOGY Provider, [facility] - 05/10/2025 * * *Final Report* * * DATE OF EXAM: May 10 2025 8:57AM [facility] 0593 - [facility] [employer] BREAST LTD LT / PROCEDURE REASON: Abnormal mammogram * * * * Physician Interpretation * * * * [place] [address] #[id number] - SARATH YOU[employer]F [employer] DIANN LT #[id number] - [facility] [employer] BREAST LTD LT HISTORY: 40 year-old patient [...] Yanci Segura M.D. Electronically signed on: 05/10/2025 Podiatrist Assistant: TULIO Transcribe Date/Time: May 10 2025 8:47A Dictated by : YANCI SEGURA MD This examination was interpreted and the report reviewed and electronically signed by: YANCI SEGURA MD on May 10 2025 9:02AM EST [facility] Activated partial thrombopla stin time (aPTT) in platelet poor plasma by coagulation aOrdered By: Tim Yip on 05-05-2025 aPTT Coag (PPP) [Time] 27.5 s 24.1-36.2 [facility] CBC-Complete Blood Cnt No Di ffon 05-05-2025 Erythrocyte distribution width (RBC) [Ratio] 18.3 % High 11.6-14.6 [facility] Comment on above: Performed By: #### L 300.3900, BTSPAT, L300.4310, L100.0500, L501.5200 ####[facility] [address] [place], [place], [id number] Hematocrit (Bld) [Volume fraction] 40.5 % Normal 37-47 [facility] Comment on above: Performed By: #### L 300.3900, BTSPAT, L300.4310, L100.0500, L501.5200 ####[facility] [address] [place], [address] Hemoglobin (Bld) [Mass/Vol] 13.2 g/dL Normal 12.0-15.0 [facility] Comment on above: Performed By: #### L 300.3900, BTSPAT, L300.4310, L100.0500, L501.5200 ####[facility] [address] [place], [address] MCH (RBC) [Entitic mass] 28.3 pg Normal 27.0-32.0 [facility] Comment on above: Performed By: #### L 300.3900, BTSPAT, L300.4310, L100.0500, L501.5200 ####[facility] [address] [place], [address] MCHC (RBC) [Mass/Vol] 32.6 g/dL Normal 32-36 [facility] Comment on above: Performed By: #### L 300.3900, BTSPAT, L300.4310, L100.0500, L501.5200 ####[facility] [address] [place], [address] MCV (RBC) [Entitic vol] 86.7 fL Normal 81-99 [facility] Comment on above: Performed By: #### L 300.3900, BTSPAT, L300.4310, L100.0500, L501.5200 ####[facility] [address] [place], [address] Platelet mean volume (Bld) [Entitic vol] 10.7 fL Normal 6.2-12.0 [facility] Comment on above: Performed By: #### L 300.3900, BTSPAT, L300.4310, L100.0500, L501.5200 ####[facility] [address] [place], [address] Platelets (Bld) [#/Vol] 395 10*3/uL Normal 150-450 [facility] Comment on above: Performed By: #### L 300.3900, BTSPAT, L300.4310, L100.0500, L501.5200 ####[facility] [address] [place], [address] RBC (Bld) [#/Vol] 4.67 10*6/uL Normal 4.2-5.4 [facility] Comment on above: Performed By: #### L 300.3900, BTSPAT, L300.4310, L100.0500, L501.5200 ####[facility] [address] [place], [address] RDW SD 58.0 fl High 35.1-43.9 [facility] Comment on above: Performed By: #### L 300.3900, BTSPAT, L300.4310, L100.0500, L501.5200 ####[facility] [address] [place], [address] WBC (Bld) [#/Vol] 9.0 10*3/uL Normal 4.4-11.0 [facility] Comment on above: Performed By: #### L 300.3900, BTSPAT, L300.4310, L100.0500, L501.5200 ####[facility] [address] [place], [address] Erythrocyte distribution wid th ratioOrdered By: Tim Yip on 05-05-2025 Erythrocyte distribution width (RBC) [Ratio] 18.3 % High 11.6-14.6 [facility] Erythrocyte distribution wid th standard deviationOrdered By: Tim Yip on 05-05-2025 Erythrocyte distribution width (RBC) [Ratio] 58.0 fl High 35.1-43.9 [facility] Hematocrit Auto (Bld) [Volum e fraction]Ordered By: Tim Yip on 05-05-2025 Hematocrit (Bld) [Volume fraction] 40.5 % 37-47 [facility] Hemoglobin measurementOrdere d By: Tim Yip on 05-05-2025 Hemoglobin (Bld) [Mass/Vol] 13.2 g/dL 12.0-15.0 [facility] International normalized rat io (INR) calculationOrdered By: Tim Yip on 05-05-2025 INR Coag (Bld) [Relative time] 1.0 {INR} [facility] MCV (mean corpuscular volume ) determinationOrdered By: Tim Yip on 05-05-2025 MCV (RBC) [Entitic vol] 86.7 fL 81-99 [facility] Magnesiumon 05-05-2025 Magnesium [Mass/Vol] 2.2 mg/dL Normal 1.5-2.2 [facility] Comment on above: Performed By: #### L 300.3900, BTSPAT, L300.4310, L100.0500, L501.5200 ####[facility] [address] [place], [place], [phone] Magnesium measurement (mass/ volume)Ordered By: Tim Yip on 05-05-2025 Magnesium (Unsp spec) [Mass/Vol] 2.2 mg/dL 1.5-2.2 [facility] Mean corpuscular hemoglobin (MCH) determinationOrdered By: Tim Yip on 05-05-2025 MCH (RBC) [Entitic mass] 28.3 pg 27.0-32.0 [facility] Mean corpuscular hemoglobin concentration (MCHC) determinationOrdered By: Tim Yip on 05-05-2025 MCHC (RBC) [Mass/Vol] 32.6 g/dL 32-36 [facility] Mean platelet volume determi nationOrdered By: Tim Yip on 05-05-2025 Platelet mean volume (Bld) [Entitic vol] 10.7 fL 6.2-12.0 [facility] Partial Thromboplast Timeon 05-05-2025 aPTT Coag (Bld) [Time] 27.5 s Normal 24.1-36.2 [facility] Comment on above: Performed By: #### L 300.3900, BTSPAT, L300.4310, L100.0500, L501.5200 ####[facility] [address] [place], [place], [id number] Platelet countOrdered By: Radha Yip on 05-05-2025 Platelets (Bld) [#/Vol] 395 10*3/uL 150-450 [facility] Prothrombin Time w/INRon INR Coag (PPP) [Relative time] 1.0 {INR} Normal [facility] Comment on above: Performed By: #### L 300.3900, BTSPAT, L300.4310, L100.0500, L501.5200 ####[facility] [address] [place], [address] PT Coag (PPP) [Time] 13.4 s Normal 11.7-14.9 [facility] Comment on above: Performed By: #### L 300.3900, BTSPAT, L300.4310, L100.0500, L501.5200 ####[facility] [address] [place], [address] Prothrombin timeOrdered By: Tim Yip on 05-05-2025 PT Coag (PPP) [Time] 13.4 s 11.7-14.9 [facility] RBC Auto (Bld) [#/Vol]Ordere d By: Tim Yip on 05-05-2025 RBC (Bld) [#/Vol] 4.67 10*6/uL 4.2-5.4 [facility] Type AND Screen - PAT ONLYon 05-05-2025 ABO and Rh group Nom (Bld) Blood group O Rh(D) positive Normal [facility] Comment on above: Order Comment: Surge ry Date: 05/12/25Reason for Laboratory Test [id number] Performed By: #### L 300.3900, BTSPAT, L300.4310, L100.0500, L501.5200 ####[facility] [address] [place], [address] White blood cell (WBC) count Ordered By: Tim Yip on 05-05-2025 WBC (Bld) [#/Vol] 9.0 10*3/uL 4.4-11.0 [facility] MR/PAT.Trista 04-29-2025 MR/PAT.ANE [facility] Medical Records Department [address] [place] [address] PAT - Anesthesia 04/29/25 1016 MR#: [id number] Acct: [id number] Name: MICHAEL CASTRO Rep #: [id number] : 1985 40 From: Eligio Khan MD PCP: Dr. 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: Anesthesia History - special education tutor Hx Hospitalization No 04/29/25 08:25 Any Problems [...] take am of surgery PONV PONV - special education tutor: PONV - special education tutor Female Yes 04/29/25 08:25 HX of Motion [...] 11/08/22 19:09 Respiratory Assessment Respiratory Assessment - special education tutor: Respiratory Tract Infection Hx - special education tutor Hx Respiratory Tract Infection No 04/29/25 08:25 STOP Sleep Apnea STOP Sleep Apnea - special education tutor: STOP Sleep Apnea - special education tutor Hx Hypertension No 04/29/25 08:25 Hx Sleep [...] Tobacco Use History Tobacco Use History - special education tutor: Tobacco Use History - special education tutor Tobacco Use Smoking Status Never smoker 04/29/25 08:25 Hx Tobacco Use No 04/29/25 08:25 Years Smoking Packs Smoked per Day Smoking Cessation Date was within the last 15 years Hx Smoking Cessation Date Hx Smoking Cessation Counseling Hematologic Medial History Hematologic Hx - special education tutor: 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 [facility] 04-28-2025 [facility] Telephone ([employer]) MICHAEL CASTRO ([id number]) 1985 F Date Time Provider Department 04/28/25 [facility] During your visit today, we recorded the [...] 3:42 PM Signed Received clinical notes from [facility]. Scanned in chart. 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 Normal [facility] BRIEF OP NOTon 04-26-2025 BRIEF OP NOT HNO ID: [id number] Author: SHARI TEE PA-C Service: Interventional Radiology Author Type: Physician Core Manager Type: Brief Op Note Filed: 04/26/2025 11:00 Note Text: LUMBAR PUNCTURE BRIEF OPERATIVE / PROCEDURE NOTE LOG ID: [id number] SURGERY/PROCEDURE DATE: 04/26/25 Incision/Procedure Start Time: 10:38 AM Incision Close/Procedure End Time: 10:52 AM PROCEDURALIST(S) AND MARINE FUEL DOCK ATTENDANT(S): Surgeon(s) and Role: Shari Tee PA-C SURGERY/PROCEDURE(S): fluoroscopic guided LP ANESTHESIA: Local 5cc of 1% lidocaine FINDINGS: successful LP at L3-4. [place] to clear CSF. OP 17. ESTIMATED BLOOD LOSS: <1 mls SPECIMENS: 3.5cc of clear CSF sent in 1 vial. Specimen obtained, labeled and verified with Instant Print Operator (RT); RT verbalized specimen sent to lab. COMPLICATIONS: None CLOSURE TECHNIQUE: N/A PRE-OP/PRE-PROCEDURE DIAGNOSIS: IIH (idiopathic intracranial hypertension) [G93.2] POST-OP/POST-PROCEDUR E DIAGNOSIS: Same as Preop SIGNATURE: Shari Tee PA-C PATIENT NAME: Michael Castro DATE: 04/26/25 TIME: 10:57 AM Normal [facility] CSF MANUAL DIFFon 04-26-2025 DIF TTL, CSF 100 cells counted Normal [facility] Comment on above: Order Comment: Speci men Type: CEREBROSPINAL FLUID SPECIMENOrdering Facility: [facility] Address: [address] [place] [address] Performed By: #### L [id number], 11690-8 ####[facility] LABCLIA [id number] [place] [address] [place] LYMPH%, CSF 72 % Normal 50-90 [facility] Comment on above: Order Comment: Speci men Type: CEREBROSPINAL FLUID SPECIMENOrdering Facility: [facility] Address: [address] [place] [address] Performed By: #### L [id number], 31059-8 ####[facility] LABCLIA [id number] [place] [address] [place] MONO%, CSF 4 % Low 10-50 [facility] Comment on above: Order Comment: Speci men Type: CEREBROSPINAL FLUID SPECIMENOrdering Facility: [facility] Address: [address] [place] [address] Performed By: #### L [id number], 63007-9 ####[facility] LABCLIA [id number] [place] [address] [place] NEUT%, CSF 24 % High 0-3 [facility] Comment on above: Order Comment: Speci men Type: CEREBROSPINAL FLUID SPECIMENOrdering Facility: [facility] Address: [address] [place] [address] Performed By: #### L [id number], 03324-9 ####[facility] LABCLIA [id number] [place] [id number] [place] Cell count panel (CSF)on Clarity (CSF) Clear Normal Clear [facility] Comment on above: Order Comment: Speci men Type: CEREBROSPINAL FLUID SPECIMENOrdering Facility: [facility] Address: [address] [place] [address] Performed By: #### L [id number], 62050-6 ####[facility] LABCLIA [id number] [address] [place] Clarity (Unsp spec) Not Indicated Normal Clear [facility] Comment on above: Order Comment: Speci men Type: CEREBROSPINAL FLUID SPECIMENOrdering Facility: [facility] Address: [address] [place] [address] Performed By: #### L [id number], 05834-4 ####[facility] LABCLIA [id number] [address] [place] Color (CSF) Colorless Normal Colorless [facility] Comment on above: Order Comment: Speci men Type: CEREBROSPINAL FLUID SPECIMENOrdering Facility: [facility] Address: [address] [place] [address] Performed By: #### L [id number], 33498-2 ####[facility] LABCLIA [id number] [address] [place] Color (Spun CSF) Not Indicated Normal Colorless [facility] Comment on above: Order Comment: Speci men Type: CEREBROSPINAL FLUID SPECIMENOrdering Facility: [facility] Address: [address] [place] [address] Performed By: #### L [id number], 08393-5 ####[facility] LABCLIA [id number] [address] [place] CSF TUBE NUMBER Tube 1 Normal [facility] Comment on above: Order Comment: Speci men Type: CEREBROSPINAL FLUID SPECIMENOrdering Facility: [facility] Address: [address] [place] [address] Performed By: #### L [id number], 73317-2 ####[facility] LABCLIA [id number] [place] [address] [place] RBC Manual cnt (CSF) [#/Vol] 514 cells/uL High 0-5 [facility] Comment on above: Order Comment: Speci men Type: CEREBROSPINAL FLUID SPECIMENOrdering Facility: [facility] Address: [address] [place], [place] [address] Performed By: #### L [id number], 01135-8 ####[facility] LABIA [id number] [place] [address] [place] WBC Manual cnt (CSF) [#/Vol] 1 cells/uL Normal 0-5 [facility] Comment on above: Order Comment: Speci men Type: CEREBROSPINAL FLUID SPECIMENOrdering Facility: [facility] Address: [address] [place] [address] Performed By: #### L [id number], 19163-7 ####[facility] [id number] [address] [place] Glucose CSF-mCncon 5 Glucose (CSF) [Mass/Vol] 59 mg/dL Normal 40-70 [facility] Comment on above: Order Comment: Speci men Type: CEREBROSPINAL FLUID SPECIMENOrdering Facility: [facility] Address: [address] [place] [address] Result Comment: Lumb ar CSF glucose values of healthy patients are approximately 60% of the plasma values and must always be compared with a concurrently measured plasma value for adequate clinical interpretation. References: 1. Glucose HK (GLUC3) [package insert V 12.0 Danish]. [employer], [place], [place]. March 2016. 2. Levi Vazquez, Gonzalo HAayush (2015). Chapter 7: Glucose and Lactate. FAayush Estrada al.(eds.), Cerebrospinal Fluid in Clinical Neurology. [place]: [employer]. Performed By: #### 2 880-3, 2342-4 ####[facility] [id number] [place] [id number] [place] IR LP FOR [...] guidance was performed in conjunction with the radiology physician assistant. Plane A, Air Kerma: 25.6 mGy Dose [...] left paramedian approach at the L3-L4 level. Podiatrist Assistant: JACKIE Transcribe Date/Time: Apr 26 2025 3:30P Dictated by : SHAIR TEE PA-C This examination was interpreted and the report reviewed and electronically signed by: SHARI TEE PA-C on Apr 26 2025 1:06PM EST This document has been addended by: SHARI TEE PA-C on Apr 26 2025 3:30PM EST Normal [facility] NURSING PROGon 04-26-2025 NURSING PROG HNO ID: [id number] Author: JANINE DIXON RN Service: ? Author Type: Registered Nurse Type: Nursing Progress Note Filed: 04/27/2025 11:07 Note Text: Completed post procedure phone call. Michael Castro is feeling well and has returned to her baseline diet and activity. Denies questions or concerns related to her appointment on 04/26/2025 and had no surgical site concerns. Janine Dixon RN, BSN Normal [facility] PT EDon 04-26-2025 PT ED HNO ID: [id number] Author: SHAWN METZGER RN Service: Nursing Author [...] RN In Department: HOSP MAIN FB36 Normal [facility] Prot CSF-mCncon 04-26-2025 Protein (CSF) [Mass/Vol] 22 mg/dL Normal 15-45 [facility] Comment on above: Order Comment: Speci men Type: CEREBROSPINAL FLUID SPECIMENOrdering Facility: [facility] Address: [address] [place] [address] Result Comment: The sample contains red blood cells, which may indicate blood contamination due to a traumatic lumbar puncture. This may falsely increase the concentration of protein in CSF and invalidate the protein result. Interpret CSF protein with caution and within the context of the red blood cell count, if available. Performed By: #### 2 880-3, 2342-4 ####[facility] LABCLIA [id number] [place] [address] [place] CBC W Auto Differential pane l (Bld)on 04-22-2025 Basophils (Bld) [#/Vol] 0.05 10*3/uL Normal <0.11 [facility] Comment on above: Order Comment: Demetrio cooper Type: BLOOD SPECIMENOrdering Facility: [facility] Address: [address] [place] [address] Performed By: #### 5 7021-8 ####[facility] [id number] [place] [address] [place] Basophils/100 WBC (Bld) 0.5 % Normal [facility] Comment on above: Order Comment: Demetrio cooper Type: BLOOD SPECIMENOrdering Facility: [facility] Address: [address] [place] [address] Performed By: #### 5 7021-8 ####[facility] [id number] [place] [address] [place] Differential cell count method Nom (Bld) Auto Normal [facility] Comment on above: Order Comment: Speci men Type: BLOOD SPECIMENOrdering Facility: [facility] Address: [address] [place] [address] Performed By: #### 5 7021-8 ####[facility] [id number] [place] [address] [place] Eosinophils (Bld) [#/Vol] 0.12 10*3/uL Normal <0.46 [facility] Comment on above: Order Comment: Speci men Type: BLOOD SPECIMENOrdering Facility: [facility] Address: [address] [place] [address] Performed By: #### 5 7021-8 ####[facility] [id number] [place] [address] [place] Eosinophils/100 WBC (Bld) 1.2 % Normal [facility] Comment on above: Order Comment: Speci men Type: BLOOD SPECIMENOrdering Facility: [facility] Address: [address] [place] [address] Performed By: #### 5 7021-8 ####[facility] [id number] [place] [address] [place] Erythrocyte distribution width (RBC) [Ratio] 20.2 % High 11.5-15.0 [facility] Comment on above: Order Comment: Speci men Type: BLOOD SPECIMENOrdering Facility: [facility] Address: [address] [place] [address] Performed By: #### 5 7021-8 ####[facility] [id number] [place] [address] [place] Hematocrit (Bld) [Volume fraction] 39.8 % Normal 36.0-46.0 [facility] Comment on above: Order Comment: Speci men Type: BLOOD SPECIMENOrdering Facility: [facility] Address: [address] [place] [address] Performed By: #### 5 7021-8 ####[facility] [id number] [place] [address] [place] Hemoglobin (Bld) [Mass/Vol] 12.8 g/dL Normal 11.5-15.5 [facility] Comment on above: Order Comment: Speci men Type: BLOOD SPECIMENOrdering Facility: [facility] Address: [address] [place] [address] Performed By: #### 5 7021-8 ####[facility] [id number] [place] [address] [place] Immature granulocytes (Bld) [#/Vol] 10*3/uL Normal <0.10 [facility] Comment on above: Order Comment: Speci men Type: BLOOD SPECIMENOrdering Facility: [facility] Address: [address] [place] [address] Performed By: #### 5 7021-8 ####[facility] [id number] [place] [address] [place] Immature granulocytes/100 WBC (Bld) 0.2 % Normal [facility] Comment on above: Order Comment: Speci men Type: BLOOD SPECIMENOrdering Facility: [facility] Address: [address] [place] [address] Performed By: #### 5 7021-8 ####[facility] [id number] [place] [address] [place] Lymphocytes (Bld) [#/Vol] 3.61 10*3/uL Normal 1.00-4.00 [facility] Comment on above: Order Comment: Speci men Type: BLOOD SPECIMENOrdering Facility: [facility] Address: [address] [place] [address] Performed By: #### 5 7021-8 ####[facility] [id number] [place] [address] [place] Lymphocytes/100 WBC (Bld) 37.3 % Normal [facility] Comment on above: Order Comment: Speci men Type: BLOOD SPECIMENOrdering Facility: [facility] Address: [address] [place] [address] Performed By: #### 5 7021-8 ####[facility] [id number] [place] [address] [place] MCH (RBC) [Entitic mass] 27.4 pg Normal 26.0-34.0 [facility] Comment on above: Order Comment: Speci men Type: BLOOD SPECIMENOrdering Facility: [facility] Address: [address] [place] [address] Performed By: #### 5 7021-8 ####[facility] [id number] [place] [address] [place] MCHC (RBC) [Mass/Vol] 32.2 g/dL Normal 30.5-36.0 [facility] Comment on above: Order Comment: Speci men Type: BLOOD SPECIMENOrdering Facility: [facility] Address: [address] [place] [address] Performed By: #### 5 7021-8 ####[facility] [id number] [place] [address] [place] MCV (RBC) [Entitic vol] 85.0 fL Normal 80.0-100.0 [facility] Comment on above: Order Comment: Speci men Type: BLOOD SPECIMENOrdering Facility: [facility] Address: [address] [place] [address] Performed By: #### 5 7021-8 ####[facility] [id number] [place] [address] [place] Monocytes (Bld) [#/Vol] 0.56 10*3/uL Normal <0.87 [facility] Comment on above: Order Comment: Speci men Type: BLOOD SPECIMENOrdering Facility: [facility] Address: [address] [place] [address] Performed By: #### 5 7021-8 ####[facility] [id number] [place] [address] [place] Monocytes/100 WBC (Bld) 5.8 % Normal [facility] Comment on above: Order Comment: Speci men Type: BLOOD SPECIMENOrdering Facility: [facility] Address: [address] [place] [address] Performed By: #### 5 7021-8 ####[facility] [id number] [place] [address] [place] Neutrophils (Bld) [#/Vol] 5.33 10*3/uL Normal 1.45-7.50 [facility] Comment on above: Order Comment: Speci men Type: BLOOD SPECIMENOrdering Facility: [facility] Address: [address] [place] [address] Performed By: #### 5 7021-8 ####[facility] [id number] [place] [address] [place] Neutrophils/100 WBC (Bld) 55.0 % Normal [facility] Comment on above: Order Comment: Speci men Type: BLOOD SPECIMENOrdering Facility: [facility] Address: [address] [place] [address] Performed By: #### 5 7021-8 ####[facility] [id number] [place] [address] [place] Nucleated RBC (Bld) [#/Vol] 10*3/uL Normal <0.01 [facility] Comment on above: Order Comment: Speci men Type: BLOOD SPECIMENOrdering Facility: [facility] Address: [address] [place] [address] Performed By: #### 5 7021-8 ####[facility] [id number] [place] [address] [place] Nucleated RBC/100 WBC (Bld) [Ratio] 0.0 /100 WBC Normal [facility] Comment on above: Order Comment: Speci men Type: BLOOD SPECIMENOrdering Facility: [facility] Address: [address] [place] [address] Performed By: #### 5 7021-8 ####[facility] [id number] [place] [address] [place] Platelet mean volume (Bld) [Entitic vol] 10.6 fL Normal 9.0-12.7 [facility] Comment on above: Order Comment: Speci men Type: BLOOD SPECIMENOrdering Facility: [facility] Address: [address] [place] [address] Performed By: #### 5 7021-8 ####[facility] [id number] [place] [address] [place] Platelets (Bld) [#/Vol] 357 10*3/uL Normal 150-400 [facility] Comment on above: Order Comment: Speci men Type: BLOOD SPECIMENOrdering Facility: [facility] Address: [address] [place] [address] Performed By: #### 5 7021-8 ####[facility] [id number] [place] [address] [place] RBC (Bld) [#/Vol] 4.68 10*6/uL Normal 3.90-5.20 [facility] Comment on above: Order Comment: Speci men Type: BLOOD SPECIMENOrdering Facility: [facility] Address: [address] [place] [address] Performed By: #### 5 7021-8 ####[facility] [id number] [place] [address] [place] WBC (Bld) [#/Vol] 9.69 10*3/uL Normal 3.70-11.00 [facility] Comment on above: Order Comment: Speci men Type: BLOOD SPECIMENOrdering Facility: [facility] Address: [address] [place] [address] Performed By: #### 5 7021-8 ####[facility] [id number] [place] [address] [place] Fer[facility]in [facility] 2024 Ferritin [Mass/Vol] 79.9 ng/mL Normal 14.7-205.1 [facility] Comment on above: Order Comment: Speci men Type: BLOOD SPECIMENOrdering Facility: [facility] Address: [address] [place] [address] Performed By: #### 5 0190-8, 2276-4 ####[facility] LABIA [id number] [place] [address] [place] Iron and Iron binding capaci [facility] 04-22-2025 Iron [Mass/Vol] 88 ug/dL Normal 41-186 [facility] Comment on above: Order Comment: Speci men Type: BLOOD SPECIMENOrdering Facility: [facility] Address: [address] [place] [address] Performed By: #### 5 0190-8, 6-4 ####[facility] [id number] [place] [address] [place] Iron binding capacity [Mass/Vol] 407 ug/dL High 232-386 [facility] Comment on above: Order Comment: Speci men Type: BLOOD SPECIMENOrdering Facility: [facility] Address: [address] [place] [address] Performed By: #### 5 0190-8, 6-4 ####[facility] LABCLIA [id number] [place] [address] [place] [facility] Iron/TIBC [Molar ratio] 21.6 % Normal 15.0-57.0 [facility] Comment on above: Order Comment: Speci men Type: BLOOD SPECIMENOrdering Facility: [facility] Address: [address] [place] [address] Performed By: #### 5 0190-8, 2276-4 ####[facility] LABCLIA [id number] [place] [address] [place] Pathology biopsy report Jacob (Tiss)Ordered By: Angela Ashraf on 04-22-2025 Case Report Surgical Pathology Report Case: [id number] Authorizing Provider: Tim Yip MD Collected: 04/21/2025 03:27 PM Ordering Location: OB/Gynecology Received: 04/21/2025 04:21 PM Pathologist: Angela Ashraf MD Specimen: Endometrium, Biopsy [facility] Work Phone: Clinical History g8pokJDwHRAel9onKSBu b CVyAiYsYiDtVtUsBmh7QK DdswL6Koc0VMNkSDeupV1 mWIZuKXbrL6sxogOyyNUj HKIrINp2mP3hzRqmvQ1nU kIaLbQcXSVrEN1xoxUjHA hzDKP8dLHrTNSnQ2YtDDO bY8meiNAlYMNdhzY1 [facility] Work Phone: Disclaimer c8coeDYkPWZcq9yfZBCh b GFuZzEwMzNcZnRuYmpcdW MxIHtccnRmMVxlcGljMTE yKVTkp0iyl6skrPVcOJFg b4bdd3QdgRYedSSoXLeqp WEkptHxyz19mKK9yJ18OE 9wETZgSzT5IRRakdV6Kdg 1BZZcZSCidFZxC565h7zm s2btpoMpuHP0MVXjUNSjT 1ZkVF6bLFQluUKaI18vpQ NmHBS2GNFvLSEdyOKfLOS xYXX6ZLQlfOReD6neRYEu MU6eusegRNtsCSjuQAEog JP4QSLwgTZtW9PcDDJvIC kvLQJngvq3FsKmBs1rpHL etKigEXenY7kwsR5jJgC3 DNuuH8xpbG5gSQc7ZUlyR KDrsYK4olI0QMHryZLfG9 YcsO1iXVOrGC7gmpa0q6h hJSU4DCllIMZcPoZ7quF6 NDBccGFyZFxwbGFpblxiX UKiDBGxB4BcPNliNl9vTY XzrjgwUYO7REedeBDnSWG tq7SzCGzPQSjgUJaaZ7oy pY9wodeqfKOoPFVgZGMdF BBFITNwm6RnEW8lBAOkbL FwPOU9SXVis5WbM7Qlh8J gbI7buO8zzHerqW7inRKo eHZcjOfumK0etA0qKcd3p 7Rgv4DkexZqRTIvAWWunS XdzP5qHW2zLwAwwr3kaRW 5QAk5HuJqQYs0WIMga83p nHDsxYVqzTA9NTVcXCPhF GRldGVybWluZWQgYnkgdG taOFCfpcCvbl1gyuzkbGS sj3GoiG8ivIE4wEEevM8g O0lqsvPsDU7nXUZrlD8oW ydzIFJvYmVydCBKLiBUb2 5apRLfWWZjdVbptU6fhUF vbcNgGJInj9DicI0mvAXS UVWiK9smFLCXSSEbkbSoE X29FDnEAGvsJKKpjQS5bn IZk6QwtGOfoEfzGAsjv77 iY6RoQTVezOHJw0ReaOPk jZhcEznuoprbQNRFPFA6f 44kDB2hfZb2ISmfPD6eah D7EAsey7AzoOYsXAHYxeS pQP8rHge1DERwRRTchKKk fCPSJL65HMOtLZ6sqnZmd gNHJNNztOdmEk5qpWkzEN 9dgRa9HTriVN2hLUFxvM0 fKPqlz6RlhRFjWOTakhHe ZT2ghn4ufcUov24zpQZ0I H17ZKhgqVjdL9bXLSYyVG R3tWQsbBNkfCFnPH7jPQC vheXrz2MuIE5oBFArHXZs OXHhp5MjCP9qdFDgy5Sfr EB4VMHhFLBoHNOnWWJdSC Nxy6YnRFKxvd09NCBwGzn yzDtbMKGYFF6fGiLqYNdU AYaaUWMwN1PwEXJjJAY1q xPuolBTLGeOEKHdYEE6WP dwAkqaBGS7rpZrTIVbo2G jMIbfE3ccL34uhBdajWm4 lII6VGL7fC0vWdYShSAqX ZK1YJN4yeVhavSxoIJgRO Lar4WnW3mcmkdxPQvjsWZ raD7yBQNgQYKfKGNnVYNo q4MoFGQfz6KzSuUudvYqI XKbBJHkUPLbmI70SAE9cI ocoTrhrrCxXQ8pLDKuttU pTAOlKQSmcY0rAN9ctGHc ryQnQF2vPX4tQ5E2kFWjA QIvljUun3xhVYN6WGibYK FwcHJvcHJpYXRlbHkuXHB hcn19 [facility] Work Phone: FINAL DIAGNOSIS c6oelNGsDDQobJLqWBTg N nrmzgEvUNTvwPZlI4Lhfr cgXRkpTU9uNM3zlTflkWY cbMUnQXPrSoIrx8doo884 dPIaa3siBZNMfyldyDd2f TvwZ37kg5C1FjhbT82xnE HuTSM3TJHbRILhmYAgGTF dKOO8CXLblUWiF3hrVLMg NE6jxfopIMqtRSarZQFbo CY9ABQzwPFdN4UvJNNsBZ djRNSnekz4YwXmBq5vyZH yeTcyMFxwYXJkXHBsYWlu JPBrNfSnWV5ep43cyGGft Z8nRZQfa9GwgCauUROtAC 2jnC5vrdYxoYZtxUC2wkC 6uNHuQAMcQJ36GEO4vXZn JkfipOIsMGBiULcjTN47x mDvHeNjytEadPf5HRJjel XgiXI1qaa5cVYeisDfMU4 lh3XkzvEvdM4acIMgoT== [facility] Work Phone: Gross Description l2gdnNFxOYSisQUPOCIi M FPoHK1sjJcmvRk7hMtvQR EsvyS5rYXsOToys4olDKC 3h2xlnaBDCmlgGTQjBD6m SWplUDLsSH3fWiPgSIMuD mYxXHBhcGVydzEyMjQwXH XlbEXisMP8ZSKwDN4wcvx wYVaxMGzmWHUdawP7IQZb mWDhC6QuXGPyAH5rcvdaC PS9XGCSBrjbCr3puTJbmC tcZjFcZmNoYXJzZXQwXGZ wv5qgxtZYqiwycNj1qH2G BNAdK1DbJR7If6edDUZim UTmECM7IZcwz0hiEDrdCN X9SBOhBTDiVWYaXQ5DIyI nRNc8AkydJoojMnE8AKh8 TKSTAFIsOCC7ROP9YCRwA Rk7HHvvNCcbhUKaWGZkIK ZiSYQsXTakzcW9s0wkOYR ueRZcWEZ7OJiua6mnSCfd YCZ9YXAhHcNoSOQbVU4TL mKzYSr0WdpvLjuuLxW3RV g0WIWTYtWeZwFfDwXzYnD xUHphDCb9FQg4EYlWUmOb UAcnHoe9JnU1CBQ5GGL1A yBcXHQgMiBcXHNzIDMgXF whmUQrBK1fvEygGJZhKX6 DIKMfSNmwJUPoEoBmQA8v VL8qs04wiFMeyY9pKCLda 3BzeVxsdHJjaFxmczIyXH IstsCPQkjjUKDdXO2SXXF hGZjkLBo1ckDkJOOqSdHv NQUiA81vj4BVm0UbBL9ZN Oh9prGpmpBAGhprwqPiRN AyN9AzhjIvGFjqOKSyzl6 nkPzfVJPbOIKtsOy4vBKk WZH6BU2qy7eiqERyoY0br FYkGWZvh1jaNLSmh9A6IZ FlKAWeTZQ8LKKsJ48cqnB fIY0yVQPqp8B6CJJjRU9s eEIpDMvugFkkoGRcmH6ce CCpXS5nNErdbTV1bX8gbP YewDG8WYMmPAahUOqjapP uQIJvjizumP5aBJ10YWqz DN47QBhiQC9hQDJrGgUZi 4TdkEk0KKA7En6cbFKzQS KkhwAedfRaE3Gxb0J7nQY kLVtoXOGfCXdkuTDnDE0T LHLzSKK7IVS6SYNwJZB3M Aq0IvyuHW2gkRYwPZ7ZMZ BhciANClxzYTMwXGVwaWN Rx2CsXZXGOqdkg7KuYMZ8 TE2pfwL1kS6fMQGxhhLcn t1hFRFluTFYvGK3POihyu XcW0ecdvznCOA5LBOwLPU 3N9uwHPLKccTbLTXNxUL5 KUsjpzUyZI6KVAU0KEz8Z CjvBSIiM74sf5VHc3Ytq2 vexHlcg9JfnQLvQA01EFF ckDHaUJT9UP8xmSwkAORb DQpccGFyZCANClxwbGFpb iANCn0= [facility] Work Phone: Performing Lab i9jwfYSbRRBupGEjTNGh M xsrreCcWHTcwOSnP6Rzmp fsJAzkVM3eAO8veWqbdVY mlYVtUAVwKqOct6gsa297 pEJjx0tzUGJOegytbVj3t YjbO61ho7O3GmkxW79zcT KiSUS6ZDUgLBSpfJCfQUA dGDC9IQMkrKEwF0plNOWq PZ3wgmciDRrvUPmyVHPel QF4ZYJfcDXmG8UbWWIxFP ttORRfzco3TgVhNr5hiXV odJreJAwgC5tqtT6aGxC1 OVzkM2pgdF6nZAu0ZSeyJ UKomMU9vwT1EACxqYHxZ6 ZuuC2nTTVaXE0hllr6a1s eYCO3EWywKYHfDxC6ucU5 NDBccGFyZFxwbGFpblxmc gAjCRDjVDgyn5U9uFSefH 43UTGsuzI6VOHsb82xxKJ tZe3ntVJbUTU5BgBMfDH2 PWjggwJcJ6lmatquUP8fn R5sW0XkfZYxEMxwv7WzbB BpEAiaHe8rZVBmdlfcTPf 4NXWgBLZmnFjfGIS7QD92 ZSwgRGVzayBMMjEsIENsZ WVlcRAeSGNFYHU8IEP6TZ GsCFNVLALdSEB1LKD5MXX wOTRccGFyIFxwYXIgTGFi x1JkoU9pnVPHpZKbJ1Myt exuU6KudPChXHfsckLlR0 tzLCBNRFxwYXJ9 [facility] Work Phone: [facility] Work Phone: CNOVon 04-21-2025 CNOV Office Visit (OBGYWM ) MICHAEL CASTRO ([id number]) 1985 F Date Time Provider Department 04/21/25 2:50 PM TIM YIP OBGYWM During your visit today, [...] Paternal Grandmother other (Other) Paternal Grandmother No breast/chauffeur cancer Aneurysm Paternal Grandfather other (cask gene [...] cm? Uterin (more content not included)... Normal [facility] HISTORY PHYSICALon HISTORY PHYSICAL HNO ID: [id number] Author: TIM YIP MD Service: ? Author [...] Paternal Grandmother other (Other) Paternal Grandmother No breast/chauffeur cancer Aneurysm Paternal Grandfather other (cask gene [...] ovary morphology (more content not included)... Normal [facility] Pathology biopsy report Jacob (Tiss)on 04-21-2025 AP DISCLAIMER Normal [facility] Comment on above: Order Comment: Speci men Type: TISSUE SPECIMENOrdering Facility: [facility] Address: [address] [place] [address] Result Comment: Rach Andrade Test (LDT) Disclaimer: Performance characteristics of immunohistochemical, immunofluorescent, and chromogenic in-situ hybridization tests have been determined by the performing laboratory within [facility]'s [facility] Pathology and Laboratory Medicine Department ([facility], [facility], [facility], [facility], [facility], [facility], or [facility]) in a manner consistent with CLIA requirements. One or more of these tests may not have been cleared or approved by the FDA. [facility] is regulated under CLIA as qualified to perform high-complexity testing. These tests are used for clinical purposes. These should not be regarded as investigational or for research. Positive and negative controls stain appropriately. Performed By: #### 6 6121-5 ####[facility] LABIA [id number] [place] [address] [place] CASE REPORT Normal [facility] Comment on above: Order Comment: Speci men Type: TISSUE SPECIMENOrdering Facility: [facility] Address: [address] [place] [address] Result Comment: Surg [facility] Pathology Report Case: [id number] Authorizing Provider: Tim Yip MD Collected: 04/21/2025 03:27 PM Ordering Location: OB/Gynecology Received: 04/21/2025 04:21 PM Pathologist: Angela Ashraf MD Specimen: Endometrium, Biopsy Performed By: #### 6 6121-5 ####[facility] LABIA [id number] [place] [address] [place] CLINICAL HISTORY menorrhagia with regular cycles Normal [facility] Comment on above: Order Comment: Speci men Type: TISSUE SPECIMENOrdering Facility: [facility] Address: [address] [place] [address] Performed By: #### 6 6121-5 ####[facility] LABIA [id number] [place] [id number] [facility] FINAL DIAGNOSIS Normal [facility] Comment on above: Order Comment: Speci men Type: TISSUE SPECIMENOrdering Facility: [facility] Address: [address] [place] [address] Result Comment: Endo metrium, biopsy: Predominantly mucus with scant superficial fragments of inactive endometrium and endocervix. at 1546 EDT Performed By: #### 6 6121-5 ####[facility] LABCLIA [id number] [address] OF [facility] FINAL PERFORMING LAB Normal [facility] Comment on above: Order Comment: Speci men Type: TISSUE SPECIMENOrdering Facility: [facility] Address: [address] [place] [address] Result Comment: Diag nostic interpretation performed at: [facility], [address] [place] [address] CLIA# [id number] Pin Drafting Machine Operator: James Caicedo MD Performed By: #### 6 6121-5 ####[facility] LABCLIA [id number] [address] GROSS DESCRIPTION Normal [facility] Comment on above: Order Comment: Speci men Type: TISSUE SPECIMENOrdering Facility: [facility] Address: [address] [place] [address] Result Comment: A. E ndometrium, Biopsy Received in formalin are multiple morales-white to morales-brown, soft feathery segments of tissue admixed with mucinous and gelatinous material aggregating to 1.9 x 1.8 x 0.2 cm. Totally submitted in one cassette. DB April 21, 2025 9:38 PM Gross examination performed at [facility], [address] [place] [address] Performed By: #### 6 6121-5 ####[facility] LABIA [id number] [address] OF [place] CNOVon 04-07-2025 CNOV Office Visit ([facility]) MICHAEL CASTRO ([id number]) 1985 F Date Time Provider Department 04/07/25 8:00 AM [facility] During your visit today, we recorded the following information about you: Pulse Blood pressure Weight Height 71/minute 131/82 104.8 kg 1.575 m Brokoe Duncan MD 04/24/2025 11:21 AM Signed [facility] Initial Visit Michael Castro CC#: [id number] Date of Service: 04/07/2025 Primary Care Provider: [...] debilitating sympto (more content not included)... Normal [facility] CNPNon 03-28-2025 [facility] MICHAEL CASTRO ([id number]) 1985 F Date Time Provider Department 03/28/25 NEUROLOGY [facility] During your visit today, we recorded the [...] see our center? (referring provider) Tanya Vernon APRN.CNP Has your referring provider recommended a specific [...] the head, brain, neck, carotids, or spine. [facility] Have you had any surgeries or procedures for this condition? yes If yes, where was it done and when? Who performed the surgery or procedure? 2021 possibly LP at [facility] Does any of the following pertain to you? Family history of brain aneurysm? no Polycystic kidney disease or other genetic kidney disease? Not applicable if chronic kidney disease. no Connective tissue disease such as fibromuscular dysplasia or Dylon-Danlos Syndrome? no Do you prefer in-person or virtual appointment? Out of state residents must be in [place] at the time of their virtual visit. In person Specific day of the week or time of day? Mondays preferred but will make anything work Do you prefer to be notified of your appointment by phone or MyChart message? Phone + ok to M Thank you for speaking with me today. Your information will now be forwarded to our [facility] advance practice provider team to review and provide scheduling recommendations. Please allow 3 business days to hear back from us. If you do not, feel free to call back [phone] for an update. Yadi Johnson 03/28/2025 6:20 PM Signed OSH imaging/records received from [facility]: March 28, 2025 -Records AND Imaging available in Chart Allergies As of Date: 03/28/2025 Noted Allergy Reaction DIAMOX (ACETAZOLAMIDE) 05/16/2016 14 - Other: See Comments Comments: Numbness in hands and feet Date Reviewed: 03/24/2025 Reviewed by: Tanya Vernon APRN.GROUP FITNESS ASSISTANT DEPARTMENT HEAD - Fully Assessed Reason for Visit: Future [...] Medication managem (more content not included)... Normal [facility] MRA BRAIN WO IVCONon 025 MRA [...] images of the posterior fossa. Intracranial 3D afpp-nq-ocrmxj MRA, 2-D vdlj-sn-sebnmo intracranial MRV and gadolinium enhanced sagittal gradient echo volume acquisition of the intracranial venous circulation with post-processing performed at the modality and 2D multiplanar and 3D maximum intensity projections were created, reviewed and archived. MQ: MRAB_4 Contrast: 20 (accession [id number]), 20ml (accession [id number]), 20 (accession [id number]) mL Dotarem IV COMPARISON: 05/13/2022. RESULT: BRAIN: [...] and configuration. The PICAs, AICAs, SCA's and performance engineer are patent without evidence of focal significant [...] 2021. Oth (more content not included)... Normal [facility] MRI BRAIN WO/W IVCONon 03-18 MRI BRAIN WO/W IVCON * * *Final Report* * * DATE OF EXAM: Mar 18 2025 2:11PM [facility] 0295 - MRI BRAIN WO/W IVCON / [...] images of the posterior fossa. Intracranial 3D woqb-mc-cookxg MRA, 2-D mkeo-qq-gbgiqo intracranial MRV and gadolinium enhanced sagittal gradient echo volume acquisition of the intracranial venous circulation with post-processing performed at the modality and 2D multiplanar and 3D maximum intensity projections were created, reviewed and archived. MQ: MRAB_4 Contrast: 20 (accession [id number]), 20ml (accession [id number]), 20 (accession [id number]) mL Dotarem IV COMPARISON: 05/13/2022. RESULT: BRAIN: [...] and configuration. The PICAs, AICAs, SCA's and performance engineer are patent without evidence of focal significant [...] 2021. O (more content not included)... Normal [facility] MRV BRAIN WO/W IVCONon 03-18 MRV BRAIN WO/W IVCON * * *Final Report* * * DATE OF EXAM: Mar 18 2025 2:21PM LD 0336 - MRV BRAIN WO/W IVCON / [...] images of the posterior fossa. Intracranial 3D bntj-qr-eesmpg MRA, 2-D lknn-hp-vzhuus intracranial MRV and gadolinium enhanced sagittal gradient echo volume acquisition of the intracranial venous circulation with post-processing performed at the modality and 2D multiplanar and 3D maximum intensity projections were created, reviewed and archived. MQ: MRAB_4 Contrast: 20 (accession [id number]), 20ml (accession [id number]), 20 (accession [id number]) mL Dotarem IV COMPARISON: 05/13/2022. RESULT: BRAIN: [...] and configuration. The PICAs, AICAs, SCA's and performance engineer are patent without evidence of focal significant [...] 2021. O (more content not included)... Normal [facility] CNOVon 03-03-2025 CNOV Office Visit (FAMPWS ) MICHAEL CASTRO ([id number]) 1985 F Date Time Provider Department 03/03[facility]25 2[facility] During your visit today, we recorded [...] US showed fibroids. Has follow up with chauffeur Previously saw rheumatology but that was over [...] ONLY 07/07/2017 LIGATE FALLOPIAN TUBE [facility] PAST SURGICAL HISTORY OF 08/2000 TENDON REPAIR [...] Paternal Grandmother other (Other) Paternal Grandmother No breast/chauffeur cancer Aneurysm Paternal Grandfather other (cask gene [...] while pregnan (more content not included)... Normal [facility] CNOVon 02-25-2025 CNOV Office Visit (UCWSTR ) MICHAEL CASTRO ([id number]) 1985 F Date Time Provider Department 02/25/25 2:30 PM SIDRA DOTY UCWSTR During your visit today, we recorded the following information about you: Temperature Pulse Respiration Blood pressure 97.7 degrees 79/minute 18/minute 154/89 Weight 104.8 kg Sidra Doty APRN.GROUP FITNESS ASSISTANT DEPARTMENT HEAD 02/25/2025 2:36 PM Signed [facility] [...] history is provided by the patient. No historic interpreter was used. Ear Problem Review of Systems [...] Paternal Grandmother other (Other) Paternal Grandmother No breast/chauffeur cancer Aneurysm Paternal Grandfather other (cask gene [...] MG-POTASSIUM CLAVULANATE 125 MG TABLET Sidra Doty APRN.GROUP FITNESS ASSISTANT DEPARTMENT HEAD History and Record Review External record(s) reviewed: no prior records. Disposition The patient was discharged. Procedures Referring Provider: PETRA GRANT [[id number]] Allergies As of Date: 02/25/2025 Noted Allergy Reaction DIAMOX (ACETAZOLAMIDE) 05/16/2016 14 - Other: See Comments Comments: Numbness in hands and feet Date Revi (more content not included)... Normal [facility] CNOVon 02-24-2025 CNOV Office Visit (OBGYWM ) MICHAEL CASTRO ([id number]) 1985 F Date Time Provider Department 02/24/25 11:10 AM TMI YIP OBGYWM During your visit today, we recorded the following information about you: Blood pressure Weight 132/86 102.5 kg Tim Yip MD 02/24/2025 1:56 PM Signed Michael Davidson Gloria is a 39 year old female who presents for problem visit for f/u heavy menses. . HPI: Menses have always been heavy but worse since and having anemia, low fe and fatigue. [...] Living2 SAB1 IAB0 Ectopic0 Multiple0 Live Births2 Eeg Technologist History LMP: 01/18/2025 (Exact Date), Having periods Age at Menarche: 8 Age at First : Age at Menopause: Eeg Technologist History Comments: Sexual Activity: Yes; Male; one [...] Paternal Grandmother other (Other) Paternal Grandmother No breast/chauffeur cancer Aneurysm Paternal Grandfather other (cask gene [...] discussed with the Patient or Patient's Authorized Director Of Human Resources. As applicable, any other physician, advance practice provider, medical student, or other health professional student that will be observing or involved in the sensitive examination for educational or training purposes was discussed with the Patient or Authorized Director Of Human Resources. The Patient or Authorized Director Of Human Resources has (more content not included)... Normal [facility] Cassidy 02-22-2025 [facility] Telephone (NOAH) MICHAEL CASTRO ([id number]) 1985 F Date Time Provider Department 02/22/25 ADELINA ELMORE During your visit today, we recorded the following information about you: Adelina Elmore LISW 02/22/2025 11:06 AM Signed Pt noted on [facility] 1st time treatment report. Pt has a non-oncology regimen. No social work follow up indicated. DASH Montes Allergies As of Date: 02/22/2025 Noted Allergy Reaction DIAMOX (ACETAZOLAMIDE) 05/16/2016 14 - Other: See Comments Comments: Numbness in hands and feet Date Reviewed: 02/17/2025 Reviewed by: Tanya Vernon APRN.GROUP FITNESS ASSISTANT DEPARTMENT HEAD - Fully Assessed Reason for Visit: Social [...] joint, ankle and foot [M25.579] 02/19/2012 Dyspareunia [EFH4771] 04/05/2013 Muscle spasm [M62.838] 05/19/2013 Routine gynecological [...] Status:Closed by ADELINA ELMORE on 02/22/25 Normal [facility] CNCOon 02-15-2025 CNCO Letter Text Normal [facility] CNPNon 02-15-2025 [facility] Telephone (ABDON) MICHAEL CASTRO ([id number]) 1985 F Date Time Provider Department 02/15/25 DAMIEN SHAVER JR During your visit today, we recorded the following information about you: Raquel Shannon 02/15/2025 1:11 PM Signed LVM for the patient about canceled appt. gave the patient # [phone] to call to reschedule appt Sent the patient a [employer] message. Shalonda Guerrero LPN 02/15/2025 1:30 PM Signed Patient calling to reschedule her appt with Neurology if possible to see someone on 02/18/2025. Assisted with transfer to automotive glazier to get appt set up. Merlene Pineda 02/15/2025 1:58 PM Signed Scheduled patient with neurology PAUL at [facility] on 02/17/25. Please notify patient if [...] joint, ankle and foot [M25.579] 02/19/2012 Dyspareunia [[id number]] 04/05/2013 Muscle spasm [M62.838] 05/19/2013 Routine gynecological [...] Encounter Status:Closed by RAQUEL SHANNON on 02/15/25 [facility] CNOVSPon 02-10-2025 CNOVSP Visit (SP) Office (HEMAWS) MICHAEL CASTRO ([id number]) 1985 F Date Time Provider Department 02/10/25 10:30 AM PETRA GRANT During your visit [...] 1 pad/hr. Passing large clots. Following with MECHANIC ASSISTANT. She is on norethindrone in efforts to [...] ONLY 07/07/2017 LIGATE FALLOPIAN TUBE 2017 at [facility] PAST SURGICAL HISTORY OF 08/2000 TENDON REPAIR [...] Paternal Grandmother other (Other) Paternal Grandmother No breast/chauffeur cancer Aneurysm Paternal Grandfather other (cask gene [...] Lab Re (more content not included)... Normal [facility] CNOVon 02-03-2025 CNOV Office Visit (OBGYWM ) MICHAEL CASTRO ([id number]) 1985 F Date Time Provider Department 02/03/25 [...] Living2 SAB1 IAB0 Ectopic0 Multiple0 Live Births2 Eeg Technologist History LMP: 01/18/2025 (Exact Date), Having periods Age at Menarche: 8 Age at First : Age at Menopause: Eeg Technologist History Comments: Sexual Activity: Yes; Male; one [...] Paternal Grandmother other (Other) Paternal Grandmother No breast/chauffeur cancer Aneurysm Paternal Grandfather other (cask gene [...] discussed with the Patient or Patient's Authorized Director Of Human Resources. As applicable, any other physician, advance practice provider, medical student, or other health professional student that will be observing or involved in the sensitive examination for educational or training purposes was discussed with the Patient or Authorized Director Of Human Resources. The Patient or Authorized Director Of Human Resources has agreed to proceed with the sensitive [...] external genitalia normal, normal Bartholin's glands, urethra, Souderton's glands, no vulvar lesions, no cervical lesions, good vaginal support, physiologic discharge present, normal appearing perineal body and perianal region BIMANUAL: uterus normal size, shape and consistency, no adnexal masses, and non-tender RECTOVAGINAL: deferred. NEURO: alert and oriented x3,exam grossly non-focal EXTREMITIES: normal ASSESSMENT/PLAN: 1) Health maintenance: Pap done with HPV. (more content not included)... Normal [facility] HIGH RISK HUMAN PAPILLOMA AMENA (HPV), PCR FOR DETECTION AND GENOTYPINGon 02-03-2025 HPV 16 Ag Ql (Unsp spec) Not detected Normal Not detec marion [facility] Comment on above: Order Comment: Speci men Type: FLUID SPECIMENOrdering Facility: [facility] Address: [address] [place] [address] Performed By: #### H PVHRT ####[facility] LABCLIA [id number] [address] [id number] [address] [place] HPV 18 Ag Ql (Unsp spec) Not detected Normal Not detec marion [facility] Comment on above: Order Comment: Speci men Type: FLUID SPECIMENOrdering Facility: [facility] Address: [address] [place] [address] Performed By: #### H PVHRT ####[facility] LABCLIA [id number] [place] [address] [place] HPV 31+33+35+39+45+51+52+56+ 58+59+66+68 DNA AURA+probe Ql (Cvx) Not detected Normal Not detected [facility] Comment on above: Order Comment: Speci men Type: FLUID SPECIMENOrdering Facility: [facility] Address: [address] [place] [address] Result Comment: High Risk HPV Other Type includes HPV types 31, 33, 35, 39, 45, 51, 52, 56, 58, 59, 66 and 68. Performed By: #### H PVHRT ####[facility] LABIA [id number] [address] [place] PAP TESTon 02-03-2025 ADEQUACY Normal [facility] Comment on above: Order Comment: Speci men Type: FLUID SPECIMENOrdering Facility: [facility] Address: [address] [place] [address] Result Comment: Sati sfactory for interpretation. No endocervical component Performed By: #### L [id number] ####[facility] LABIA [id number] [place] [address] [place] CASE REPORT Normal [facility] Comment on above: Order Comment: Speci men Type: FLUID SPECIMENOrdering Facility: [facility] Address: [address] [place] [address] Result Comment: Gyne cologic Cytology Report Case: [id number] Authorizing Provider: Mine Doty MD Collected: 02/03/2025 10:06 AM Ordering Location: OB/Gynecology Received: 02/03/2025 11:42 AM First Screen: Carol Ann Hernández, CT, ASCP Rescreen: Lisa Nugent, CT, ASCP Specimen: Pap Test, ThinPrep, Cervix Performed By: #### L [id number] ####[facility] LABCLIA [id number] [address] [place] [address] [place] CLINICAL HISTORY, CYTOLOGY, MECHANIC ASSISTANT Routine Exam Normal [facility] Comment on above: Order Comment: Speci men Type: FLUID SPECIMENOrdering Facility: [facility] Address: [address] [place] [address] Performed By: #### L [id number] ####[facility] LABCLIA [id number] [address] [place] [address] [place] CYTOLOGY PAP OTHER INTERPRETATION Predominance of coccobacilli consistent with shift in vaginal zainab. Normal [facility] Comment on above: Order Comment: Speci men Type: FLUID SPECIMENOrdering Facility: [facility] Address: [address] [place] [address] Performed By: #### L [id number] ####[facility] LABCLIA [id number] [address] [place] [address] [place] FINAL PERFORMING LAB Normal [facility] Comment on above: Order Comment: Speci men Type: FLUID SPECIMENOrdering Facility: [facility] Address: [address] [place], [place] [address] Result Comment: Tech nical component, hand surgeon screening performed at [facility], [address] [place] [address] [place] [address] CLIA# [id number] Diagnostic interpretation performed at [facility], [address] [place] [address] [place] [address] CLIA# [id number] Pin Drafting Machine Operator: James Caicedo M.D. Performed By: #### L [id number] ####[facility] LABCLIA [id number] [address] [place] [address] [place] INTERPRETATION, CYTOLOGY, MECHANIC ASSISTANT Normal [facility] Comment on above: Order Comment: Speci men Type: FLUID SPECIMENOrdering Facility: [facility] Address: [address] [place] [address] Result Comment: Nega tive for intraepithelial lesion or malignancy. at 1251 EDT Performed By: #### L [id number] ####[facility] LABCLIA [id number] [address] [place] [address] [place] LMP 01/18/2025 Normal [facility] Comment on above: Order Comment: Speci men Type: FLUID SPECIMENOrdering Facility: [facility] Address: [address] [place] [address] Performed By: #### L [id number] ####[facility] LABCLIA [id number] [address] [place] [address] [place] PAP DISCLAIMER COMMENT The Pap Smear is a screening test for cervical cancer. False negative results occur with all screening tests, emphasizing the need for rescreening at recommended intervals, and clinical correlation. Normal [facility] Comment on above: Order Comment: Speci men Type: FLUID SPECIMENOrdering Facility: [facility] Address: [address] [place] [address] Performed By: #### L [id number] ####[facility] LABCLIA [id number] [facility] [address] [place] [address] [place] PAP UNION REPRESENTATIVE COMMENT This specimen has been analyzed by the ThinPrep Imaging System, an automated imaging and review system, which assists the laboratory in evaluating cells on ThinPrep Pap tests. Following automated imaging, selected gutierres from every slide are reviewed by a hand surgeon. Normal [facility] Comment on above: Order Comment: Speci men Type: FLUID SPECIMENOrdering Facility: [facility] Address: [address] [place] [address] Performed By: #### L [id number] ####[facility] LABCLIA [id number] [address] [place] [address] [place] 25([place])D3 [facility] 2024 25-hydroxyvitamin D3 [Mass/Vol] 38.1 ng/mL Normal 31.0-80.0 [facility] Comment on above: Order Comment: Speci men Type: BLOOD SPECIMENOrdering Facility: [facility] Address: [address] [place] [address] Result Comment: Clas sification of 25 [place] Vitamin D status: Deficiency/Insufficiency: < or = 30 ng/ml. Sufficiency/Optimal Levels: 31-80 ng/mL Toxicity: > 100 ng/mL. Test performed by chemiluminescent immunoassay. Performed By: #### 1 989-3 ####[facility] [id number] [place] [address] [place] BREANN BY IFA WITH REFLEXon Nuclear Ab Ql (S) Negative Normal Negative [facility] Comment on above: Order Comment: Speci men Type: BLOOD SPECIMENOrdering Facility: [facility] Address: [address] [place] [address] Result Comment: Anti -nuclear antibody test is used as an aid in diagnosis of systemic autoimmune diseases. Where positive and clinically warranted, follow-up using disease-specific testing is recommended. Low positive titers are not uncommon with advanced age, certain chronic infections, and malignancies among others. Test methodology: Indirect fluorescence immunoassay (IFA) using HEp-2 cells. Performed By: #### A NAIFR ####[facility] LABIA [id number] [place] [address] [place] CBC W Auto Differential pane l (Bld)on 01-31-2025 Basophils (Bld) [#/Vol] 0.05 10*3/uL Normal <0.11 [facility] Comment on above: Order Comment: Speci men Type: BLOOD SPECIMENOrdering Facility: [facility] Address: [address] [place] [address] Performed By: #### 5 7021-8 ####[facility] LABIA [id number] [place] [address] [place] Basophils/100 WBC (Bld) 0.4 % Normal [facility] Comment on above: Order Comment: Speci men Type: BLOOD SPECIMENOrdering Facility: [facility] Address: [address] [place] [address] Performed By: #### 5 7021-8 ####[facility] LABCLIA [id number] [place] [address] [place] Differential cell count method Nom (Bld) Auto Normal [facility] Comment on above: Order Comment: Speci men Type: BLOOD SPECIMENOrdering Facility: [facility] Address: [address] [place] [address] Performed By: #### 5 7021-8 ####[facility] LABCLIA [id number] [place] [address] [place] Eosinophils (Bld) [#/Vol] 0.07 10*3/uL Normal <0.46 [facility] Comment on above: Order Comment: Speci men Type: BLOOD SPECIMENOrdering Facility: [facility] Address: [address] [place] [address] Performed By: #### 5 7021-8 ####[facility] LABCLIA [id number] [place] [address] [place] Eosinophils/100 WBC (Bld) 0.6 % Normal [facility] Comment on above: Order Comment: Speci men Type: BLOOD SPECIMENOrdering Facility: [facility] Address: [address] [place] [address] Performed By: #### 5 7021-8 ####[facility] LABCLIA [id number] [place] [address] [place] Erythrocyte distribution width (RBC) [Ratio] 18.4 % High 11.5-15.0 [facility] Comment on above: Order Comment: Speci men Type: BLOOD SPECIMENOrdering Facility: [facility] Address: [address] [place] [address] Performed By: #### 5 7021-8 ####[facility] LABCLIA [id number] [place] [address] [place] Hematocrit (Bld) [Volume fraction] 34.6 % Low 36.0-46.0 [facility] Comment on above: Order Comment: Speci men Type: BLOOD SPECIMENOrdering Facility: [facility] Address: [address] [place] [address] Performed By: #### 5 7021-8 ####[facility] LABIA [id number] [place] [address] [place] Hemoglobin (Bld) [Mass/Vol] 10.1 g/dL Low 11.5-15.5 [facility] Comment on above: Order Comment: Speci men Type: BLOOD SPECIMENOrdering Facility: [facility] Address: [address] [place] [address] Performed By: #### 5 7021-8 ####[facility] LABIA [id number] [place] [address] [place] Immature granulocytes (Bld) [#/Vol] 0.04 10*3/uL Normal <0.10 [facility] Comment on above: Order Comment: Speci men Type: BLOOD SPECIMENOrdering Facility: [facility] Address: [address] [place] [address] Performed By: #### 5 7021-8 ####[facility] LABIA [id number] [place] [address] [place] Immature granulocytes/100 WBC (Bld) 0.3 % Normal [facility] Comment on above: Order Comment: Speci men Type: BLOOD SPECIMENOrdering Facility: [facility] Address: [address] [place] [address] Performed By: #### 5 7021-8 ####[facility] LABIA [id number] [place] [address] [place] Lymphocytes (Bld) [#/Vol] 3.18 10*3/uL Normal 1.00-4.00 [facility] Comment on above: Order Comment: Speci men Type: BLOOD SPECIMENOrdering Facility: [facility] Address: [address] [place] [address] Performed By: #### 5 7021-8 ####[facility] LABIA [id number] [place] [address] [place] Lymphocytes/100 WBC (Bld) 26.1 % Normal [facility] Comment on above: Order Comment: Speci men Type: BLOOD SPECIMENOrdering Facility: [facility] Address: [address] [place] [address] Performed By: #### 5 7021-8 ####[facility] [id number] [place] [address] [place] MCH (RBC) [Entitic mass] 22.5 pg Low 26.0-34.0 [facility] Comment on above: Order Comment: Speci men Type: BLOOD SPECIMENOrdering Facility: [facility] Address: [address] [place] [address] Performed By: #### 5 7021-8 ####[facility] LABIA [id number] [place] [address] [place] MCHC (RBC) [Mass/Vol] 29.2 g/dL Low 30.5-36.0 [facility] Comment on above: Order Comment: Speci men Type: BLOOD SPECIMENOrdering Facility: [facility] Address: [address] [place] [address] Performed By: #### 5 7021-8 ####[facility] LABIA [id number] [place] [address] [place] MCV (RBC) [Entitic vol] 77.2 fL Low 80.0-100.0 [facility] Comment on above: Order Comment: Speci men Type: BLOOD SPECIMENOrdering Facility: [facility] Address: [address] [place] [address] Performed By: #### 5 7021-8 ####[facility] LABCLIA [id number] [address] [place] [address] [place] Monocytes (Bld) [#/Vol] 0.66 10*3/uL Normal <0.87 [facility] Comment on above: Order Comment: Speci men Type: BLOOD SPECIMENOrdering Facility: [facility] Address: [address] [place] [address] Performed By: #### 5 7021-8 ####[facility] LABCLIA [id number] [address], [facility]95 [place] Monocytes/100 WBC (Bld) 5.4 % Normal [facility] Comment on above: Order Comment: Speci men Type: BLOOD SPECIMENOrdering Facility: [facility] Address: [address] [place] [address] Performed By: #### 5 7021-8 ####[facility] LABCLIA [id number] [address], [place] [address] [place] Neutrophils (Bld) [#/Vol] 8.17 10*3/uL High 1.45-7.50 [facility] Comment on above: Order Comment: Speci men Type: BLOOD SPECIMENOrdering Facility: [facility] Address: [address] [place] [address] Performed By: #### 5 7021-8 ####[facility] LABCLIA [id number] [place] [address] [place] Neutrophils/100 WBC (Bld) 67.2 % Normal [facility] Comment on above: Order Comment: Speci men Type: BLOOD SPECIMENOrdering Facility: [facility] Address: [address] [place] [address] Performed By: #### 5 7021-8 ####[facility] LABCLIA [id number] [place] [address] [place] Nucleated RBC (Bld) [#/Vol] 10*3/uL Normal <0.01 [facility] Comment on above: Order Comment: Speci men Type: BLOOD SPECIMENOrdering Facility: [facility] Address: [address] [place] [address] Performed By: #### 5 7021-8 ####[facility] LABCLIA [id number] [place] [address] [place] Nucleated RBC/100 WBC (Bld) [Ratio] 0.0 /100 WBC Normal [facility] Comment on above: Order Comment: Speci men Type: BLOOD SPECIMENOrdering Facility: [facility] Address: [address] [place] [address] Performed By: #### 5 7021-8 ####[facility] LABCLIA [id number] [place] [address] [place] Platelet mean volume (Bld) [Entitic vol] 11.4 fL Normal 9.0-12.7 [facility] Comment on above: Order Comment: Speci men Type: BLOOD SPECIMENOrdering Facility: [facility] Address: [address] [place] [address] Performed By: #### 5 7021-8 ####[facility] LABIA [id number] [place] [address] [place] Platelets (Bld) [#/Vol] 478 10*3/uL High 150-400 [facility] Comment on above: Order Comment: Speci men Type: BLOOD SPECIMENOrdering Facility: [facility] Address: [address] [place] [address] Performed By: #### 5 7021-8 ####[facility] LABIA [id number] [place] [address] [place] RBC (Bld) [#/Vol] 4.48 10*6/uL Normal 3.90-5.20 [facility] Comment on above: Order Comment: Speci men Type: BLOOD SPECIMENOrdering Facility: [facility] Address: [address] [place] [id number] Performed By: #### 5 7021-8 ####[facility] [id number] [place] [address] [place] WBC (Bld) [#/Vol] 12.17 10*3/uL High 3.70-11.00 [facility] Comment on above: Order Comment: Speci men Type: BLOOD SPECIMENOrdering Facility: [facility] Address: [address] [place] [id number] Performed By: #### 5 7021-8 ####[facility] [id number] [place] [address] [place] CNCOon 01-31-2025 CNCO Letter Text Normal [facility] CNOVon 01-31-2025 CNOV Office Visit (FAMPWS ) MICHAEL CASTRO ([id number]) 1985 F Date Time Provider Department 01/31/25 11:40 AM [facility] visit today, we recorded the following information about you: Temperature Pulse Respiration Blood pressure 97.3 degrees 80/minute 18/minute 112/82 Weight Height 104.3 kg 1.555 m Shena Dwyer PA-C 01/31/2025 11:52 AM Addendum Chief Complaint Patient presents with: Yearly Exam HPI Michael Lucioparas is a 39 year old [...] US showed fibroids. Has follow up with chauffeur Previously saw rheumatology but that was over [...] Paternal Grandmother other (Other) Paternal Grandmother No breast/chauffeur cancer Aneurysm Paternal Grandfather other (cask gene [...] barnett. Nose/Sinuses: (more content not included)... [facility] Tele[facility] (4CQ) TRAY CASTROOLE Lety ([id number]) 1985 F Date Time Provider Department 01/31/25 ANKUR SEARS 4CQ During your visit today, we recorded the following information about you: Ankur Sears PSS 01/31/2025 11:41 AM Signed Patient was [...] and feet Date Reviewed: 01/31/2025 Reviewed by: Renae Evans LPN - Fully Assessed Prescriptions as [...] joint, ankle and foot [M25.579] 02/19/2012 Dyspareunia [[id number]] 04/05/2013 Muscle spasm [M62.838] 05/19/2013 Routine gynecological [...] Status:Closed by KALA KAY on 01/31/25 Normal [facility] Comprehensive metabolic 2000 panelon 01-31-2025 Albumin [Mass/Vol] 4.5 g/dL Normal 3.9-4.9 [facility] Comment on above: Order Comment: Speci men Type: BLOOD SPECIMENOrdering Facility: [facility] Address: [address] [place] [address] Performed By: #### 2 4323-8, 2132-9, 2284-8, LIPNF ####[facility] LABCLIA [id number] [address] [address] [place] ALP [Catalytic activity/Vol] 80 U/L Normal 34-123 [facility] Comment on above: Order Comment: Speci men Type: BLOOD SPECIMENOrdering Facility: [facility] Address: [address] [place] [address] Performed By: #### 2 4323-8, 9, 2284-06, LIPNF ####[facility] LABIA [id number] [place] [address] [place] ALT [Catalytic activity/Vol] 14 U/L Normal 7-38 [facility] Comment on above: Order Comment: Speci men Type: BLOOD SPECIMENOrdering Facility: [facility] Address: [address] [place] [address] Performed By: #### 2 432-8, 2132-07, 2284-06, LIPNF ####[facility] LABIA [id number] [place] [address] [place] Anion gap [Moles/Vol] 12 mmol/L Normal 8-15 [facility] Comment on above: Order Comment: Speci men Type: BLOOD SPECIMENOrdering Facility: [facility] Address: [address] [place] [address] Performed By: #### 2 4323-8, 2132-07, 2284-06, LIPNF ####[facility] LABIA [id number] [place] [id number] [place] AST [Catalytic activity/Vol] 15 U/L Normal 13-35 [facility] Comment on above: Order Comment: Speci men Type: BLOOD SPECIMENOrdering Facility: [facility] Address: [address] [place] [address] Performed By: #### 2 4323-8, 9, 8, LIPNF ####[facility] LABCLIA [id number] [address] [address] [place] Bilirubin [Mass/Vol] 0.4 mg/dL Normal 0.2-1.3 [facility] Comment on above: Order Comment: Speci men Type: BLOOD SPECIMENOrdering Facility: [facility] Address: [address] [place] [address] Performed By: #### 2 4323-8, 9, 2284-06, LIPNF ####[facility] LABCLIA [id number] [address] [address] [place] Calcium [Mass/Vol] 9.2 mg/dL Normal 8.5-10.2 [facility] Comment on above: Order Comment: Speci men Type: BLOOD SPECIMENOrdering Facility: [facility] Address: [address] [place] [address] Performed By: #### 2 432-8, 2132-07, 2284-06, LIPNF ####[facility] LABCLIA [id number] [place] [address] [place] Chloride [Moles/Vol] 101 mmol/L Normal 98-107 [facility] Comment on above: Order Comment: Speci men Type: BLOOD SPECIMENOrdering Facility: [facility] Address: [address] [place] [address] Performed By: #### 2 4323-8, 2132-07, 2284-06, LIPNF ####[facility] LABCLIA [id number] [place] [address] [place] CO2 [Moles/Vol] 26 mmol/L Normal 22-30 [facility] Comment on above: Order Comment: Speci men Type: BLOOD SPECIMENOrdering Facility: [facility] Address: [address] [place] [address] Performed By: #### 2 4323-8, 9, 2284-06, LIPNF ####[facility] LABCLIA [id number] [place] [id number] [place] Creatinine [Mass/Vol] 0.78 mg/dL Normal 0.58-0.96 [facility] Comment on above: Order Comment: Demetrio cooper Type: BLOOD SPECIMENOrdering Facility: [facility] Address: [address] [place] [address] Performed By: #### 2 4323-8, 2-9, 2284-06, LIPNF ####[facility] LABIA [id number] [place] [address] [place] Creatinine and Glomerular filtration rate.predicted panel (S/P/Bld) 98 mL/min/1.73m??? Normal >=60 [facility] Comment on above: Order Comment: Demetrio cooper Type: BLOOD SPECIMENOrdering Facility: [facility] Address: [address] [place] [address] Result Comment: Brandy mated Glomerular Filtration Rate [...] actual GFR. Performed By: #### 2 4323-8, 9, 2284-06, LIPNF ####[facility] LABIA [id number] [place] [address] [place] Glucose [Mass/Vol] 79 mg/dL Normal 74-99 [facility] Comment on above: Order Comment: Demetrio kenneth Type: BLOOD SPECIMENOrdering Facility: [facility] Address: [address] [place] [address] Result Comment: The [place] Diabetes Association (ADA) provides guidance for cutoff [...] Standards of Medical Care in Diabetes 2016, [place] [employer]. Diabetes Care. 2016.39(Suppl 1). Performed By: #### 2 4323-8, 9, 2284-06, LIPNF ####[facility] LABCLIA [id number] [address] [address] [place] Potassium [Moles/Vol] 4.5 mmol/L Normal 3.7-5.1 [facility] Comment on above: Order Comment: Speci men Type: BLOOD SPECIMENOrdering Facility: [facility] Address: [address] [place] [address] Performed By: #### 2 4328, 2132-07, 2284-06, LIPNF ####[facility] LABIA [id number] [place] [address] [place] Protein [Mass/Vol] 7.5 g/dL Normal 6.3-8.0 [facility] Comment on above: Order Comment: Heaveni kenneth Type: BLOOD SPECIMENOrdering Facility: [facility] Address: [address] [place] [address] Performed By: #### 2 4328, 2132-07, 2284-06, LIPNF ####[facility] LABIA [id number] [place] [address] [place] Sodium [Moles/Vol] 139 mmol/L Normal 136-144 [facility] Comment on above: Order Comment: Speci men Type: BLOOD SPECIMENOrdering Facility: [facility] Address: [address] [place] [address] Performed By: #### 2 4323-8, 2132-07, 2284-06, LIPNF ####[facility] LABCLIA [id number] [address] [address] [place] Urea nitrogen [Mass/Vol] 13 mg/dL Normal 7-21 [facility] Comment on above: Order Comment: Speci men Type: BLOOD SPECIMENOrdering Facility: [facility] Address: [address] [place] [address] Performed By: #### 2 4323-8, 2-9, 2283-8, LIPNF ####[facility] LABCLIA [id number] [place] [address] [place] Folate SerPl-mCncon 02-01-20 25 Folate [Mass/Vol] 8.7 ng/mL Normal >4.7 [facility] Comment on above: Order Comment: Heaveni men Type: BLOOD SPECIMENOrdering Facility: [facility] Address: [address] [place] [address] Performed By: #### 2 4323-8, 2131-9, 8, LIPNF ####[facility] LABCLIA [id number] [place] [address] [place] HbA1c (Bld)on 01-31-2025 Average glucose Estimated from glycated hemoglobin (Bld) [Mass/Vol] 114 mg/dL Normal [facility] Comment on above: Order Comment: Speci men Type: BLOOD SPECIMENOrdering Facility: [facility] Address: [address] [place] [address] Result Comment: eAG: (Estimated average glucose) is a calculated value from HgbA1c and is auto service representative of the average blood glucose level in the last 2-3 month period. Performed By: #### 5 5454-3 ####[facility] LABIA [id number] [place] [id number] [place] HbA1c (Bld) [Mass fraction] 5.6 % Normal 4.3-5.6 [facility] Comment on above: Order Comment: Speci men Type: BLOOD SPECIMENOrdering Facility: [facility] Address: [address] [place] [address] Result Comment: Amer ican Diabetes Association guidelines indicate that patients with HgbA1c in the range 5.7-6.4% are at increased risk for development of diabetes, and intervention by lifestyle modification may be beneficial. HgbA1c greater or equal to 6.5% is considered diagnostic of diabetes. Performed By: #### 5 5454-3 ####[facility] LABCLIA [id number] [address] [address] [place] LIPID PANEL, NONFASTINGon Cholesterol [Mass/Vol] 200 mg/dL High <200 [facility] Comment on above: Order Comment: Demetrio cooper Type: BLOOD SPECIMENOrdering Facility: [facility] Address: [address] [place] [address] Result Comment: <200 mg/dL, Desirable 200-239 mg/dL, Borderline high >239 mg/dL, High Performed By: #### 2 4323-8, 2132-07, 2284-06, LIPNF ####[facility] LABCLIA [id number] [place] [id number] [place] HDL CHOLESTEROL, NF 63 mg/dL Normal >39 [facility] Comment on above: Order Comment: Demetrio cooper Type: BLOOD SPECIMENOrdering Facility: [facility] Address: [address] [place] [address] Result Comment: 40-5 9 mg/dL, Acceptable >59 mg/dL, High: Negative risk factor for coronary heart disease <40 mg/dL, Low: Positive risk factor for coronary heart disease Performed By: #### 2 4323-8, 2132-07, 2284-06, LIPNF ####[facility] LABCLIA [id number] [address] [address] [place] LDL CHOLESTEROL, NF 120 mg/dL High <100 [facility] Comment on above: Order Comment: Demetrio cooper Type: BLOOD SPECIMENOrdering Facility: [facility] Address: [address] [place] [address] Result Comment: <100 mg/dL, Optimal 100-129 mg/dL, Near optimal/above optimal 130-159 mg/dL, Borderline high 160-189 mg/dL, High >189 mg/dL, Very high Secondary prevention optimal LDL Cholesterol levels are recommended to be < 70 mg/dL Performed By: #### 2 3-8, 2132-07, 2284-06, LIPNF ####[facility] LABCLIA [id number] [address] [place] [address] [place] LDL/HDL RATIO, NF 1.90 mg/dL Normal <2.54 [facility] Comment on above: Order Comment: Speci men Type: BLOOD SPECIMENOrdering Facility: [facility] Address: [address] [place] [address] Result Comment: Christina dailey: 1. National Cholesterol Education Program ATP III Guideline At-A-Glance Quick Desk Reference: National Heart, Lung, and Blood [place]. National Institutes of Health. 2001: NIH Publication No. 01-3305. 2. An International Atherosclerosis Society position paper: global recommendations for the management of dyslipidemia: executive summary, Atherosclerosis. 2014: 232(2):410-413. Performed By: #### 2 3-8, 2132-07, 2284-06, LIPNF ####[facility] LABCLIA [id number] [address] [facility] NON HDL CHOL, NF 137 mg/dL High <130 [facility] Comment on above: Order Comment: Heaveni men Type: BLOOD SPECIMENOrdering Facility: [facility] Address: [address] [place] [address] Result Comment: <130 mg/dL, Optimal 130-159 mg/dL, Near optimal/above optimal 160-189 mg/dL, Borderline high 190-219 mg/dL, High >219 mg/dL, Very high Secondary prevention optimal non HDL Cholesterol levels are recommended to be <100 mg/dL Performed By: #### 2 3-8, 2132-07, 2284-06, LIPNF ####[facility] LABCLIA [id number] [address] [place] [address] [facility] [place] T CHOL/HDL RATIO NF 3.17 mg/dL Normal <5.10 [facility] Comment on above: Order Comment: Speci men Type: BLOOD SPECIMENOrdering Facility: [facility] Address: [address] [place] [address] Performed By: #### 2 4323-8, 9, 2284-06, LIPNF ####[facility] LABCLIA [id number] [place] [address] [place] TRIGLYCERIDES, NF 86 mg/dL Normal <150 [facility] Comment on above: Order Comment: Speci men Type: BLOOD SPECIMENOrdering Facility: [facility] Address: [address] [place] [address] Result Comment: <150 mg/dL, Normal 150-199 mg/dL, Borderline high 200-499 mg/dL, High >499 mg/dL, Very high Performed By: #### 2 4323-8, 2132-07, 2284-06, LIPNF ####[facility] LABCLIA [id number] [place] [address] [place] VLDL CHOLESTEROL, NF 17 mg/dL Normal <30 [facility] Comment on above: Order Comment: Speci men Type: BLOOD SPECIMENOrdering Facility: [facility] Address: [address] [place] [address] Performed By: #### 2 4323-8, 9, 2284-06, LIPNF ####[facility] LABCLIA [id number] [place] [address] [place] Urinalysis complete panel (U )on 01-31-2025 BACTERIA UL 3634.2 uL High Negative [facility] Comment on above: Order Comment: Speci men Type: URINE SPECIMENOrdering Facility: [facility] Address: [address] [place] [address] Performed By: #### 2 4356-8 ####[facility] LABCLIA [id number] [place] [address] [place] Bilirubin Ql (U) Negative Normal Negative [facility] Comment on above: Order Comment: Speci men Type: URINE SPECIMENOrdering Facility: [facility] Address: [address] [place] [address] Performed By: #### 2 4356-8 ####[facility] LABCLIA [id number] [facility] [address] [place] [address] [place] Clarity (Unsp spec) Clear Normal Clear [facility] Comment on above: Order Comment: Speci men Type: URINE SPECIMENOrdering Facility: [facility] Address: [address] [place] [address] Performed By: #### 2 4356-8 ####[facility] LABCLIA [id number] [address] [address] [place] Color (U) Yellow Normal Yellow [facility] Comment on above: Order Comment: Speci men Type: URINE SPECIMENOrdering Facility: [facility] Address: [address] [place] [address] Performed By: #### 2 4356-8 ####[facility] LABCLIA [id number] [facility] [address], [facility] [place] Epithelial cells LM.HPF (Urine sed) [#/Area] Moderate Normal [facility] Comment on above: Order Comment: Speci men Type: URINE SPECIMENOrdering Facility: [facility] Address: [address] [place] [address] Performed By: #### 2 4356-8 ####[facility] LABCLIA [id number] [facility] [address] [place] [address] [place] Glucose Test strip (U) [Mass/Vol] Negative Normal Negative [facility] Comment on above: Order Comment: Speci men Type: URINE SPECIMENOrdering Facility: [facility] Address: [address] [place] [address] Performed By: #### 2 4356-8 ####[facility] LABCLIA [id number] [address] [place] [address] [place] Hemoglobin Ql (U) Negative Normal Negative [facility] Comment on above: Order Comment: Speci men Type: URINE SPECIMENOrdering Facility: [facility] Address: [address] [place] [address] Performed By: #### 2 4356-8 ####[facility] LABCLIA [id number] [address], [place] [address] [place] Hyaline casts (Urine sed) [#/Area] 0 /[LPF] Normal 0 /LPF [facility] Comment on above: Order Comment: Speci men Type: URINE SPECIMENOrdering Facility: [facility] Address: [address] [place] [address] Performed By: #### 2 4356-8 ####[facility] LABCLIA [id number] [address], [place] [address] [place] Ketones Ql (U) Negative Normal Negative [facility] Comment on above: Order Comment: Speci men Type: URINE SPECIMENOrdering Facility: [facility] Address: [address] [place] [address] Performed By: #### 2 4356-8 ####[facility] LABCLIA [id number] [address], [place] [address] [place] Leukocyte esterase Test strip Ql (U) Negative Normal Negative [facility] Comment on above: Order Comment: Speci men Type: URINE SPECIMENOrdering Facility: [facility] Address: [address] [place] [address] Performed By: #### 2 4356-8 ####[facility] LABCLIA [id number] [place] [address] [place] Nitrite Ql (U) Negative Normal Negative [facility] Comment on above: Order Comment: Speci men Type: URINE SPECIMENOrdering Facility: [facility] Address: [address] [place] [address] Performed By: #### 2 4356-8 ####[facility] LABCLIA [id number] [place] [address] [place] pH (U) 6.0 [pH] Normal <8.5 [facility] Comment on above: Order Comment: Speci men Type: URINE SPECIMENOrdering Facility: [facility] Address: [address] [place] [address] Performed By: #### 2 4356-8 ####[facility] LABCLIA [id number] [place] [address] [place] Protein (U) [Mass/Vol] Negative Normal Negative [facility] Comment on above: Order Comment: Speci men Type: URINE SPECIMENOrdering Facility: [facility] Address: [address] [place] [address] Performed By: #### 2 4356-8 ####[facility] LABIA [id number] [place] [address] [place] RBC LM.HPF (Urine sed) [#/Area] 0-2 /HPF Normal 0-2 /HPF [facility] Comment on above: Order Comment: Speci men Type: URINE SPECIMENOrdering Facility: [facility] Address: [address] [place] [address] Performed By: #### 2 4356-8 ####[facility] LABIA [id number] [place] [address] [place] Specific gravity (U) [Rel density] 1.025 Normal 1.005-1.030 [facility] Comment on above: Order Comment: Speci men Type: URINE SPECIMENOrdering Facility: [facility] Address: [address] [place] [address] Performed By: #### 2 4356-8 ####[facility] LABCLIA [id number] [place] [address] [place] Urobilinogen Ql (U) 0.2 EU/dL Normal 0.2-1.0 EU/dL [facility] Comment on above: Order Comment: Speci men Type: URINE SPECIMENOrdering Facility: [facility] Address: [address] [place] [address] Performed By: #### 2 4356-8 ####[facility] LABCLIA [id number] [place] [address] [place] WBC LM.HPF (Urine sed) [#/Area] 0-5 /HPF Normal 0-5 /HPF [facility] Comment on above: Order Comment: Speci men Type: URINE SPECIMENOrdering Facility: [facility] Address: [address] [place] [address] Performed By: #### 2 4356-8 ####[facility] LABCLIA [id number] [place] [address] [place] Vit B12 [facility] Cobalamin (Vitamin B12) [Mass/Vol] 984 pg/mL Normal 232-1245 [facility] Comment on above: Order Comment: Speci men Type: BLOOD SPECIMENOrdering Facility: [facility] Address: [address] [place] [address] Performed By: #### 2 4323-8, 2132-9, 2284-8, LIPNF ####[facility] LABCLIA [id number] [place] [address] [place] Inj/Asp Jarett Jt Should/Hip/Kn eeon 01-27-2025 Inj/Asp Jarett Jt Should/Hip/Knee [facility] Imaging Services [address] [place], [place] [address] Inj/Asp Jarett Jt Should/Hip/Knee MR#: [id number] Acct: [id number] Name: MICHAEL CASTRO Rep #: [id number] : 1985 F 39 From: Flavio Cloud MD PCP: Care Physician,No Primary Status: REG CLI Study: Inj/Asp Jarett Jt Should/Hip/Knee Date of Exam: 0 01/27/25 Exam# [id number] Ordering Dr: Erick Brownlee MD PROCEDURE: RIGHT [...] Thank you for this referral. Reading Location: [place] [address] CC: Dr. Erick Brownlee MD; No Primary Care Physician Podiatrist Assistant: Signed [facility] Pelvison 01-24-2025 Indication Abnormal uterine bleeding Impression [...] Read By: Ela Croft M.D. MATERNAL MEDICINE [facility] US Pelvison 01-21-2025 Radiology Study observation (narrative) [facility] CBC W Auto Differential pane l (Bld)on 01-20-2025 Basophils (Bld) [#/Vol] 0.06 10*3/uL [facility] Basophils/100 WBC (Bld) 0.7 % [facility] Differential cell count method Nom (Bld) Auto [facility] Eosinophils (Bld) [#/Vol] 0.15 10*3/uL [facility] Eosinophils/100 WBC (Bld) 1.8 % [facility] Erythrocyte distribution width (RBC) [Ratio] 18.3 % High 11.5 - 15.0 % [facility] Hematocrit (d) [Volume fraction] 32.4 % Low 36.0 - 46.0 % [facility] Hemoglobin (Bld) [Mass/Vol] 9.6 g/dL Low 11.5 - 15.5 g/dL [facility] Immature granulocytes (Bld) [#/Vol] [facility] Immature granulocytes/100 WBC (Bld) 0.2 % [facility] Interpretation and review of laboratory results Abnormal [facility] Lymphocytes (Bld) [#/Vol] 2.16 10*3/uL [facility] Lymphocytes/100 WBC (Bld) 25.4 % [facility] MCH (RBC) [Entitic mass] 22.4 pg Low 26. 0 - 34.0 pg [facility] MCHC (RBC) [Mass/Vol] 29.6 g/dL Low 30.5 - 36.0 g/dL [facility] MCV (RBC) [Entitic vol] 75.5 fL Low 80.0 - 100.0 fL [facility] Monocytes (Bld) [#/Vol] 0.59 10*3/uL [facility] Monocytes/100 WBC (Bld) 6.9 % C [facility] Neutrophils (Bld) [#/Vol] 5.52 10*3/uL [facility] Neutrophils/100 WBC (Bld) 65 % [facility] Nucleated RBC (Bld) [#/Vol] NINF [facility] Nucleated RBC/100 WBC (Bld) [Ratio] 0 % /100 WBC [facility] Platelet mean volume (Bld) [Entitic vol] 9.8 fL 9.0 - 12.7 fL [facility] Platelets (Bld) [#/Vol] 454 10*3/uL High [facility] RBC (Bld) [#/Vol] 4.29 10*6/uL 3.90 - 5.2 0 m/uL [facility] WBC (Bld) [#/Vol] 8.5 10*3/uL [facility] Basophils (Bld) [#/Vol] 0.06 10*3/uL Normal <0.11 [facility] Comment on above: Order Comment: Speci men Type: BLOOD SPECIMENOrdering Facility: [facility] Address: [address] [place] [address] Performed By: #### 5 7021-8 ####[facility] ISA [facility] HOSPITALSeema [id number] [place] [id number] [place] Basophils/100 WBC (Bld) 0.7 % Normal [facility] Comment on above: Order Comment: Speci men Type: BLOOD SPECIMENOrdering Facility: [facility] Address: [address] [place] [address] Performed By: #### 5 7021-8 ####[facility] HALLEYONKERSRINAA [id number] [place] [address] [place] Differential cell count method Nom (Bld) Auto Normal [facility] Comment on above: Order Comment: Speci men Type: BLOOD SPECIMENOrdering Facility: [facility] Address: [address] [place] [address] Performed By: #### 5 7021-8 ####[facility] HOSPITALJEN [id number] [place] [address] [place] Eosinophils (Bld) [#/Vol] 0.15 10*3/uL Normal <0.46 [facility] Comment on above: Order Comment: Speci men Type: BLOOD SPECIMENOrdering Facility: [facility] Address: [address] [place] [address] Performed By: #### 5 7021-8 ####[facility] KISSIMMEEA [id number] [place] [address] [place] Eosinophils/100 WBC (Bld) 1.8 % Normal [facility] Comment on above: Order Comment: Speci men Type: BLOOD SPECIMENOrdering Facility: [facility] Address: [address] [place] [address] Performed By: #### 5 7021-8 ####[facility] KISSIMMEESeema [id number] [place] [address] [place] Erythrocyte distribution width (RBC) [Ratio] 18.3 % High 11.5-15.0 [facility] Comment on above: Order Comment: Speci men Type: BLOOD SPECIMENOrdering Facility: [facility] Address: [address] [place] [address] Performed By: #### 5 7021-8 ####[facility]ILDRENNCLI [id number] [place] [address] [place] Hematocrit (Bld) [Volume fraction] 32.4 % Low 36.0-46.0 [facility] Comment on above: Order Comment: Speci men Type: BLOOD SPECIMENOrdering Facility: [facility] Address: [address] [place] [address] Performed By: #### 5 7021-8 ####[facility] [id number] [place] [address] [place] Hemoglobin (Bld) [Mass/Vol] 9.6 g/dL Low 11.5-15.5 [facility] Comment on above: Order Comment: Speci men Type: BLOOD SPECIMENOrdering Facility: [facility] Address: [address] [place] [address] Performed By: #### 5 7021-8 ####[facility] [id number] [place] [address] [place] Immature granulocytes (Bld) [#/Vol] 10*3/uL Normal <0.10 [facility] Comment on above: Order Comment: Speci men Type: BLOOD SPECIMENOrdering Facility: [facility] Address: [address] [place] [address] Performed By: #### 5 7021-8 ####[facility] [id number] [place] [address] [place] Immature granulocytes/100 WBC (Bld) 0.2 % Normal [facility] Comment on above: Order Comment: Speci men Type: BLOOD SPECIMENOrdering Facility: [facility] Address: [address] [place] [address] Performed By: #### 5 7021-8 ####[facility] [id number] [place] [address] [place] Lymphocytes (Bld) [#/Vol] 2.16 10*3/uL Normal 1.00-4.00 [facility] Comment on above: Order Comment: Speci men Type: BLOOD SPECIMENOrdering Facility: [facility] Address: [address] [place] [address] Performed By: #### 5 7021-8 ####[facility] HALLESujathaNCSHAI [id number] [place] [address] [place] Lymphocytes/100 WBC (Bld) 25.4 % Normal [facility] Comment on above: Order Comment: Speci men Type: BLOOD SPECIMENOrdering Facility: [facility] Address: [address] [place] [address] Performed By: #### 5 7021-8 ####[facility] [id number] [place] [address] [place] MCH (RBC) [Entitic mass] 22.4 pg Low 26.0-34.0 [facility] Comment on above: Order Comment: Speci men Type: BLOOD SPECIMENOrdering Facility: [facility] Address: [address] [place] [address] Performed By: #### 5 7021-8 ####[facility]DRENNCLIA [id number] [place] [address] [place] MCHC (RBC) [Mass/Vol] 29.6 g/dL Low 30.5-36.0 [facility] Comment on above: Order Comment: Speci men Type: BLOOD SPECIMENOrdering Facility: [facility] Address: [address] [place] [address] Performed By: #### 5 7021-8 ####[facility]CL[facility] [id number] [place] [address] [place] MCV (RBC) [Entitic vol] 75.5 fL Low 80.0-100.0 C [facility] Comment on above: Order Comment: Speci men Type: BLOOD SPECIMENOrdering Facility: [facility] Address: [address] [place] [address] Performed By: #### 5 7021-8 ####[facility] MILLWNCLIA [id number] [place] [address] [place] Monocytes (Bld) [#/Vol] 0.59 10*3/uL Normal <0.87 [facility] Comment on above: Order Comment: Speci men Type: BLOOD SPECIMENOrdering Facility: [facility] Address: [address] [place] [address] Performed By: #### 5 7021-8 ####[facility] HOSPITALLIA [id number] [place] [address] [place] Monocytes/100 WBC (Bld) 6.9 % Normal [facility] Comment on above: Order Comment: Speci men Type: BLOOD SPECIMENOrdering Facility: [facility] Address: [address] [place] [address] Performed By: #### 5 7021-8 ####[facility] HOSPITALLIA [id number] [place] [address] [place] Neutrophils (Bld) [#/Vol] 5.52 10*3/uL Normal 1.45-7.50 [facility] Comment on above: Order Comment: Speci men Type: BLOOD SPECIMENOrdering Facility: [facility] Address: [address] [place] [address] Performed By: #### 5 7021-8 ####[facility] MILLWNCLIA [id number] [place] [address] [place] Neutrophils/100 WBC (Bld) 65.0 % Normal [facility] Comment on above: Order Comment: Speci men Type: BLOOD SPECIMENOrdering Facility: [facility] Address: [address] [place] [address] Performed By: #### 5 7021-8 ####[facility]ILDRENNCLIA [id number] [place] [id number] [place] Nucleated RBC (Bld) [#/Vol] 10*3/uL Normal <0.01 [facility] Comment on above: Order Comment: Speci men Type: BLOOD SPECIMENOrdering Facility: [facility] Address: [address] [place] [address] Performed By: #### 5 7021-8 ####[facility] CHILDRENNCSHAI [id number] [place] [address] [place] Nucleated RBC/100 WBC (Bld) [Ratio] 0.0 /100 WBC Normal [facility] Comment on above: Order Comment: Speci men Type: BLOOD SPECIMENOrdering Facility: [facility] Address: [address] [place] [address] Performed By: #### 5 7021-8 ####[facility] CHILDRENNCSeema [id number] [place] [address] [place] Platelet mean volume (Bld) [Entitic vol] 9.8 fL Normal 9.0-12.7 [facility] Comment on above: Order Comment: Speci men Type: BLOOD SPECIMENOrdering Facility: [facility] Address: [address] [place] [address] Performed By: #### 5 7021-8 ####[facility]DRENNCLIA [id number] [place] [address] [place] Platelets (Bld) [#/Vol] 454 10*3/uL High 150-400 [facility] Comment on above: Order Comment: Speci men Type: BLOOD SPECIMENOrdering Facility: [facility] Address: [address] [place] [address] Performed By: #### 5 7021-8 ####[facility]CLIA [id number] [place] [address] [place] RBC (Bld) [#/Vol] 4.29 10*6/uL Normal 3.90-5.20 [facility] Comment on above: Order Comment: Speci men Type: BLOOD SPECIMENOrdering Facility: [facility] Address: [address] [place] [address] [place] [address] Performed By: #### 5 7021-8 ####[facility] ISA HALLETOWNCLIA [id number] [place] [address] [place] WBC (Bld) [#/Vol] 8.50 10*3/uL Normal 3.70-11.00 [facility] Comment on above: Order Comment: Speci men Type: BLOOD SPECIMENOrdering Facility: [facility] Address: [address] [place], [place] [address] [address] Performed By: #### 5 7021-8 ####[facility] ISA HALLETOWNCLIA [id number] [address] [place] CNOVon 01-20-2025 CNOV Office Visit (OBGYWM ) MICHAEL CASTRO ([id number]) 1985 F Date Time Provider Department 01/20/25 8:30 AM MINE DOTY OBMAYLINWCandace During your visit today, we recorded the [...] Living2 SAB1 IAB0 Ectopic0 Multiple0 Live Births2 Eeg Technologist History LMP: 01/18/2025 (Exact Date), Having periods Age at Menarche: 8 Age at First : Age at Menopause: Eeg Technologist History Comments: Sexual Activity: Yes; Male; one [...] Paternal Grandmother other (Other) Paternal Grandmother No breast/chauffeur cancer Aneurysm Paternal Grandfather other (cask gene [...] [Other] P (more content not included)... Normal [facility] Ferritin SerPl-mCncon 2024 Ferritin [Mass/Vol] 9.4 ng/mL Low 14.7-205.1 [facility] Comment on above: Order Comment: Speci men Type: BLOOD SPECIMENOrdering Facility: [facility] Address: [address] [place] [address] Performed By: #### 2 276-4, 64709-3, 3016-3 ####[facility] LABORATORYCLIA [id number] [address] [employer] binding capaci ty panelon 01-20-2025 Iron [Mass/Vol] 24 ug/dL Low 41-186 [facility] Comment on above: Order Comment: Speci men Type: BLOOD SPECIMENOrdering Facility: [facility] Address: [address] [place] [address] Performed By: #### 2 276-4, 41123-6, 3016-3 ####[facility] LABORATORYCLIA [id number] [address] Iron binding capacity [Mass/Vol] 439 ug/dL High 232-386 [facility] Comment on above: Order Comment: Speci men Type: BLOOD SPECIMENOrdering Facility: [facility] Address: [address] [place] [address] Performed By: #### 2 276-4, 60912-5, 6-3 ####[facility] LABORATORYCLIA [id number] [address] Iron saturation [Mass fraction] 5.5 % Low 15.0-57.0 [facility] Comment on above: Order Comment: Speci men Type: BLOOD SPECIMENOrdering Facility: [facility] Address: [address] [place] [address] Performed By: #### 2 276-4, 08534-8, 3016-3 ####[facility] LABORATORYCLIA [id number] [place] [id number] [place] TSH SerPl-aCncon 01-20-2025 TSH Qn 0.985 m[IU]/L Normal 0.270-4.200 [facility] Comment on above: Order Comment: Speci men Type: BLOOD SPECIMENOrdering Facility: [facility] Address: [address], [place] [address] Result Comment: If t he patient is , TSH reference range varies by gestational period: First Trimester (weeks 9-12): 0.180-2.990 mIU/L Second Trimester: 0.110-3.980 mIU/L Third Trimester: 0.480-4.710 mIU/L Sivakumar Hidalgo et al. A Practical Approach for the Verifications and Determination of Site- and Trimester-Specific Reference Intervals for Thyroid Function tests in . Thyroid, 2019:29:3:412-420. Josiah Atkinson et al. 2017 Guidelines of the [place] [employer] for the Diagnosis and Management of Thyroid Disease during and the . Thyroid, 2017:27:3:315-389. Performed By: #### 2 276-4, 37559-3, 3016-3 ####[facility] LABORATORYCLIA [id number] [place] [address] [facility] CNOVon 01-03-2025 CNOV Office Visit (ORTHWS ) MICHAEL CASTRO ([id number]) 1985 F Date Time Provider Department 01/03/25 2:15 PM ERICK BROWNLEE During your visit today, we recorded the following information about you: Erick Brownlee MD 01/17/2025 12:57 PM Signed Erick Brownlee MD Department of Orthopaedics Orthopaedics [address] [facility] [address] Dept: [phone] Dept January 03, 2025 CHIEF COMPLAINT: New and Pain of the Right Hip (Referred by Dr Cruz /Last seen 07/11/14 Right ankle and hip pain) HPI Patient here for evaluation right hip pain. Patient states her pain is on the lateral aspect. Some days her hips are tight that she has difficulty sitting. 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 [...] IMAGING: Impression IMPRESSION: No acute osseous abnormality Podiatrist Assistant: JACKIE Transcribe Date/Time: Dec 30 2024 1:52P [...] Maternal Grandfather (more content not included)... Normal [facility] CNPNon 12-30-2024 CNPN Telephone (FAMPWS) MICHAEL CASTRO ([id number]) 1985 F Date Time Provider Department 12/30/24 SANKET CRUZ During your visit today, we recorded the following information about you: Sanket Cruz MD 12/30/2024 8:42 PM Signed Let patient know the hip x-ray shows mild arthritis. Renae Evans LPN 12/31/2024 8:39 AM Signed Left [...] joint, ankle and foot [M25.579] 02/19/2012 Dyspareunia [JGX3348] 04/05/2013 Muscle spasm [M62.838] 05/19/2013 Routine gynecological [...] Encounter Status:Closed by DILAN JONES on 12/31/24 [facility] XR HIP 3V PELV+ AP/LAT RTon 12-28-2024 [...] acetabular osteophyte. IMPRESSION: No acute osseous abnormality Podiatrist Assistant: PSCB Transcribe Date/Time: Dec 30 2024 1:52P Dictated by : LILIYA DENTON MD This examination was interpreted and the report reviewed and electronically signed by: LILIYA DENTON MD on Dec 30 2024 1:54PM EST [id number] Normal [facility] CNOVon 12-02-2024 CNOV Office Visit (FAMPWS ) MICHAEL CASTRO ([id number]) 1985 F Date Time Provider Department 12/02/24 11:00 AM SANKET CRUZRENEE During your visit today, we recorded the following information about you: Pulse Blood pressure Weight Height 71/minute 136/80 105.2 kg 1.588 m Sanket Cruz MD 12/02/2024 8:11 PM Signed Chief Complaint No chief complaint on file. LIZZETTE Woodward Lety Castro is a 39 year old female [...] Paternal Grandmother other (Other) Paternal Grandmother No breast/chauffeur cancer Aneurysm Paternal Grandfather other (cask gene [...] mg a (more content not included)... Normal [facility] Cassidy 11-04-2024 ELVIRAN Telephone (FAMPWS) GLORIAMICHAEL Lety ([id number]) 1985 F Date Time Provider Department 11/04/24 FUNMILAYO DAVIES During your visit today, we recorded the following information about you: Funmilayo Davies APRN.GROUP FITNESS ASSISTANT DEPARTMENT HEAD 11/04/2024 8:58 AM Signed Please let patient [...] [95] Primary Visit Diagnosis:Breast cyst, left [N60.02] Order(s):[facility] SCREENING W DIANN [[id number]] Order #: [id number] FUTURE Prescriptions as of 11/04/2024 - DULoxetine [...] joint, ankle and foot [M25.579] 02/19/2012 Dyspareunia [DXG5364] 04/05/2013 Muscle spasm [M62.838] 05/19/2013 Routine gynecological [...] deficiency anemia [D50.9] 10/24/2022 Encounter Status:Closed by WORKSCOTT CHIN CMA on 11/04/24 Normal [facility] YOUSUF BEASLEYO BILon 2023 SARATH BEASLEYO BLAYNE * * *Final Report* * * DATE OF EXAM: Nov 03 2024 8:20AM WRW 0627 - SARATH TIDWELL BLAYNE / PROCEDURE REASON: Mass of left breast, unspecified quadrant * * * * Physician Interpretation * * * * RESULT: [place] [address] [place] [address] #[id number] - SARATH TIDWELL BLAYNE #[id number] - [facility] US BREAST LTD HISTORY: Patient is 39 years old and [...] Yanci Segura M.D. Electronically signed on: 11/03/2024 Podiatrist Assistant: TULIO Transcribe Date/Time: Nov 03 2024 8:01A Dictated by: YANCI SEGURA MD This examination was interpreted and the report reviewed and electronically signed by: YANCI SEGURA MD on Nov 03 2024 9:04AM EST [id number] Normal [facility] [facility] [employer] BREAST LTD LTon 11-03 [facility] [employer] * * *Final Report* * * DATE OF EXAM: Nov 03 2024 8:58AM WRU 0593 - UniQure LT / PROCEDURE REASON: Mass of left breast, unspecified quadrant * * * * Physician Interpretation * * * * [facility] [place] [address] #[id number] - [facility] [employer] DIANN CISNEROS #[id number] - UniQure LT HISTORY: Patient is 39 years old [...] Yanci Segura M.D. Electronically signed on: 11/03/2024 Podiatrist Assistant: TULIO Transcribe Date/Time: Nov 03 2024 8:57A Dictated by : YANCI SEGURA MD This examination was interpreted and the report reviewed and electronically signed by: YANCI SEGURA MD on Nov 03 2024 9:04AM EST [id number] Normal [facility] CNOVon 10-20-2024 CNOV Office Visit (WSTR ) MICHAEL CASTRO ([id number]) 1985 F Date Time Provider Department 10/20/24 1:30 PM [facility] During your visit today, we recorded the following information about you: Temperature Pulse Respiration Blood pressure 97.9 degrees 78/minute 16/minute 122/80 Weight 108.5 kg hCapo Shore MD 10/20/2024 2:20 PM Signed Patient [...] fever cause [R50.9] Order(s):STREP A MOLECULAR (POC) [[id number]] Order #: [id number]. #:[id number] Prescriptions as of 10/20/2024 - DULoxetine (CYMBALTA) [...] joint, ankle and foot [M25.579] 02/19/2012 Dyspareunia [WJF9511] 04/05/2013 Muscle spasm [M62.838] 05/19/2013 Routine gynecological [...] for steriliza (more content not included)... Normal [facility] STREP A MOLECULAR (POC)on Procedural Control Valid [facility] Strep A (POCT) Negative Negative [facility] DBT Breast - left diagnostic for implanton 04-13-2024 * * *Final Report* * * DATE OF EXAM: Apr 13 2024 8:30AM WRW 0628 - [facility] [employer]G W DIANN LT / PROCEDURE REASON: multiple diagnoses * * * * Physician Interpretation * * * * RESULT: #[id number] - [facility] DIAG W DIANN LT #[id number] - [facility] BREAST LTD LT UNILATERAL LEFT DIGITAL DIAGNOSTIC [...] in the breast. DIVISION OF RADIOLOGY Provider, Dayanna Carreon [facility] - 04/13/2024 * * *Final Report* * * DATE OF EXAM: Apr 13 2024 8:30AM WRW 0628 - [facility] DIAG W DIANN LT / PROCEDURE REASON: multiple diagnoses * * * * Physician Interpretation * * * * RESULT: #[id number] - [facility] DIAG W DIANN LT #[id number] - [facility] US BREAST LTD LT UNILATERAL LEFT DIGITAL [...] exams dated: 10/08/2023 mammogram and 09/15/2023 mammogram [facility]. Color flow and real-time ultrasound of the [...] Health, Family Medicine, and Medical/Surgical Oncology, the [facility] has carefully reviewed the data [...] their providers when to stop screening mammograms. Stock Controller(s): Jeana Flores, [facility]; Ginny Tijerina RT(R)(M), [facility] OVERALL STUDY BIRADS: 3 Probably benign finding - short term interval follow-up recommended Podiatrist Assistant: Claudia Transcribe Date/Time: Apr 13 2024 8:01A Dictated by: YANCI SEGURA MD This examination was interpreted and the report reviewed and electronically signed by: YANCI SEGURA MD on Apr 13 2024 9:52AM EST [facility] No Panel Informationon 04-13 IMPRESSION: PROBABLY BENIGN [...] Health, Family Medicine, and Medical/Surgical Oncology, the [facility] has carefully reviewed the data [...] their providers when to stop screening mammograms. Stock Controller(s): Jeana Flores, [facility]; RT Rossana(R)(M), [facility] OVERALL STUDY BIRADS: 3 Probably benign finding - short term interval follow-up recommended Podiatrist Assistant: Claudia Transcribe Date/Time: Apr 13 2024 8:01A Dictated by : YANCI SEGURA MD This examination was interpreted and the report reviewed and electronically signed by: YANCI SEGURA MD on Apr 13 2024 9:52AM [facility] DIVISION OF RADIOLOGY Radiology Study observation (narrative) [facility] No Panel InformationOrdered By: [facility] Provider on 04-13-2024 [facility] US Breast - left limitedon 0 04-13-2024 * * *Final Report* * * DATE OF EXAM: Apr 13 2024 8:40AM [facility] 0593 - [facility] US BREAST LTD LT / PROCEDURE REASON: multiple diagnoses * * * * Physician Interpretation * * * * #[id number] - [facility] DIAG W DIANN LT #[id number] - [facility] US BREAST LTD LT UNILATERAL LEFT DIGITAL [...] in the breast. DIVISION OF RADIOLOGY Provider, [facility] - 04/13/2024 * * *Final Report* * * DATE OF EXAM: Apr 13 2024 8:40AM [facility] 0593 - [facility] US BREAST LTD LT / PROCEDURE REASON: multiple diagnoses * * * * Physician Interpretation * * * * #[id number] - [facility] DIAG W DIANN LT #[id number] - [facility] US BREAST LTD LT UNILATERAL LEFT DIGITAL [...] Health, Family Medicine, and Medical/Surgical Oncology, the [facility] has carefully reviewed the data [...] their providers when to stop screening mammograms. Stock Controller(s): Jeana Flores, [facility]; RT Rossana(R)(M), [facility] OVERALL STUDY BIRADS: 3 Probably benign finding - short term interval follow-up recommended Podiatrist Assistant: Claudia Transcribe Date/Time: Apr 13 2024 8:01A Dictated by : YANCI SEGURA MD This examination was interpreted and the report reviewed and electronically signed by: YANCI SEGURA MD on Apr 13 2024 9:52AM EST [facility] SARATH DIAG W DIANN LEFTon 10-08 [facility] US BREAST LTD LEFTon 023 [facility]ATH SCREENINGon 09-15-2023 [facility] GLUCOSE CSFon 05-30-2022 Glucose (CSF) [Mass/Vol] 60 mg/dL 40 - 70 mg/dL [facility] PROTEIN CSFon 05-30-2022 Protein (CSF) [Mass/Vol] 18 mg/dL 15 - 45 mg/dL [facility] No Panel Informationon 05-13 [facility] No Panel Informationon 02-15 [facility] NOVEL CORONAVIRUS NASOPHARYN GEAL - [facility] SPECIMEN ONLYon 02-19-2021 SARS-COV-2 NOT DETECTED Normal NOT DETECTED [facility] Comment on above: Order Comment: Submi tter Name: [facility] Agent Suspected: SARS-COV-2 This test was performed using real time PCR and has been approved for the qualitative detection of SARS-CoV-2 nucleic acid. The test has been authorized by the FDA under an emergency use authorization for use by authorized laboratories. Result Comment: [facility] Negative results do not preclude SARS-CoV-2 infection and should not be used as the sole basis for treatment or other patient management decisions. Optimum specimen types and timing for peak viral levels during infections caused by SARS-CoV-2 has not been determined. The possibility of a false negative result should especially be considered if the patient's recent exposures or clinical presentation suggest that SARS-CoV-2 infection is probable, and diagnostic tests for other causes of illness (e.g., other respiratory illness) are negative. Collection of a new specimen and re-testing may be necessary if the patient is critically ill or clinically deteriorating. Performed By: #### L [id number] #### [facility] (DEFAULT) [address] [place] [id number] NOVEL CORONAVIRUS NASOPHARYN GEAL - [facility] SPECIMEN ONLYon 10-09-2020 SARS-COV-2 NOT DETECTED Normal NOT DETECTED [facility] Comment on above: Order Comment: Submi tter Name: [facility] Agent Suspected: SARS-COV-2 This test was performed using real time PCR and has been approved for the qualitative detection of SARS-CoV-2 nucleic acid. The test has been authorized by the FDA under an emergency use authorization for use by authorized laboratories. Result Comment: Nega tive results do not preclude SARS-CoV-2 infection and should not be used as the sole basis for treatment or other patient management decisions. Optimum specimen types and timing for peak viral levels during infections caused by SARS-CoV-2 has not been determined. The possibility of a false negative result should especially be considered if the patient's recent exposures or clinical presentation suggest that SARS-CoV-2 infection is probable, and diagnostic tests for other causes of illness (e.g., other respiratory illness) are negative. Collection of a new specimen and re-testing may be necessary if the patient is critically ill or clinically deteriorating. Performed By: #### L [id number] #### [facility] (DEFAULT) [address] [address] NOVEL CORONAVIRUS NASOPHARYN GEAL - [facility] SPECIMEN ONLYon 09-25-2020 SARS-COV-2 NOT DETECTED Normal NOT DETECTED [facility] Comment on above: Order Comment: Submi tter Name: [facility] Agent Suspected: SARS-COV-2 This test was performed using real time PCR and has been approved for the qualitative detection of SARS-CoV-2 nucleic acid. The test has been authorized by the FDA under an emergency use authorization for use by authorized laboratories. Result Comment: Nega tive results do not preclude SARS-CoV-2 infection and should not be used as the sole basis for treatment or other patient management decisions. Optimum specimen types and timing for peak viral levels during infections caused by SARS-CoV-2 has not been determined. The possibility of a false negative result should especially be considered if the patient's recent exposures or clinical presentation suggest that SARS-CoV-2 infection is probable, and diagnostic tests for other causes of illness (e.g., other respiratory illness) are negative. Collection of a new specimen and re-testing may be necessary if the patient is critically ill or clinically deteriorating. Performed By: #### L [id number] #### [facility] (DEFAULT) [address] [address] NOVEL CORONAVIRUS NASOPHARYN GEAL - [facility] SPECIMEN ONLYon 07-03-2020 SARS-COV-2 NOT DETECTED Normal NOT DETECTED [facility] Comment on above: Order Comment: Submi tter Name: [facility] Agent Suspected: SARS-COV-2 This test was performed using real time PCR and has been approved for the qualitative detection of SARS-CoV-2 nucleic acid. The test has been authorized by the FDA under an emergency use authorization for use by authorized laboratories. Result Comment: Nega tive results do not preclude SARS-CoV-2 infection and should not be used as the sole basis for treatment or other patient management decisions. Optimum specimen types and timing for peak viral levels during infections caused by SARS-CoV-2 has not been determined. The possibility of a false negative result should especially be considered if the patient's recent exposures or clinical presentation suggest that SARS-CoV-2 infection is probable, and diagnostic tests for other causes of illness (e.g., other respiratory illness) are negative. Collection of a new specimen and re-testing may be necessary if the patient is critically ill or clinically deteriorating. Performed By: #### L [id number] #### [facility] (DEFAULT) [address] [address] COVID-19 virus antigen assay SARS-CoV-2 (COVID-19) Ag IA.rapid Ql (Resp) [facility] Work Phone: Vital Signs Date Time Vital Sign Value Performing Clinician Facility 05-19-2025 09:06-0400 Body mass index (BMI) [Ratio] 41.15 kg/m2 Tim Yip MD Work Phone: [facility] 05-19-2025 09:06-0400 Body weight 102.06 kg Tim Yip MD Work Phone: [facility] 05-19-2025 09:06-0400 Diastolic blood pressure 82 mm[Hg] Tim Yip MD Work Phone: [facility] 05-19-2025 09:06-0400 Systolic blood pressure 124 mm[Hg] Tim Yip MD Work Phone: [facility] 05-12-2025 12:26-0400 Body temperature 97.2 [degF] No Primary Care Physician [facility] 05-12-2025 12:26-0400 Diastolic blood pressure 89 mm[Hg] No Primary Care Physician [facility] 05-12-2025 12:26-0400 Heart rate 84 /min No Primary Care Physician [facility] 05-12-2025 12:26-0400 Respiratory rate 16 /min No Primary Care Physician [facility] 05-12-2025 12:26-0400 SaO2% (BldA) [Mass fraction] 100 % No Primary Care Physician [facility] 05-12-2025 12:26-0400 Systolic blood pressure 158 mm[Hg] No Primary Care Physician [facility] 05-12-2025 10:30-0400 Inhaled oxygen flow rate 4 L/min No Primary Care Physician [facility] 05-12-2025 06:06-0400 Body height 156.21 cm No Primary Care Physician [facility] 05-12-2025 06:06-0400 Body mass index (BMI) [Ratio] 42.7 kg/m2 No Primary Care Physician [facility] 05-12-2025 06:06-0400 Body weight 104.3 kg No Primary Care Physician [facility] 04-21-2025 14:42-0400 Body height 157.5 cm Tim Yip MD Work Phone: [facility] 04-21-2025 14:42-0400 Body mass index (BMI) [Ratio] 42.07 kg/m2 Tim Yip MD Work Phone: [facility] 04-21-2025 14:42-0400 Body weight 104.33 kg Tim Yip MD Work Phone: [facility] 04-21-2025 14:42-0400 Diastolic blood pressure 90 mm[Hg] Tim Yip MD Work Phone: [facility] 04-21-2025 14:42-0400 Systolic blood pressure 134 mm[Hg] Tim Yip MD Work Phone: [facility] 04-07-2025 08:02-0400 Body height 157.5 cm Brooke Duncan MD Work Phone: [facility] 04-07-2025 08:02-0400 Body mass index (BMI) [Ratio] 42.26 kg/m2 Brooke Duncan MD Work Phone: [facility] 04-07-2025 08:02-0400 Body weight 104.8 kg Brooke Duncan MD Work Phone: [facility] 04-07-2025 08:02-0400 Diastolic blood pressure 82 mm[Hg] Brooke Duncan MD Work Phone: [facility] 04-07-2025 08:02-0400 Heart rate 71 /min Brooke Duncan MD Work Phone: [facility] 04-07-2025 08:02-0400 SaO2% (BldA) [Mass fraction] 99 % Brooke Duncan MD Work Phone: [facility] 04-07-2025 08:02-0400 Systolic blood pressure 131 mm[Hg] Brooke Duncan MD Work Phone: [facility] 03-03-2025 14:05-0400 Body height 156.3 cm Sanket Cruz MD Work Phone: [facility] 03-03-2025 14:05-0400 Body mass index (BMI) [Ratio] 42.32 kg/m2 Sanket Cruz MD Work Phone: [facility] 03-03-2025 14:05-0400 Body weight 103.33 kg Sanket Cruz MD Work Phone: [facility] 03-03-2025 14:05-0400 Diastolic blood pressure 76 mm[Hg] Sanket Cruz MD Work Phone: [facility] 03-03-2025 14:05-0400 Heart rate 82 /min Sanket Cruz MD Work Phone: [facility] 03-03-2025 14:05-0400 SaO2% (BldA) [Mass fraction] 98 % Sanket Cruz MD Work Phone: [facility] 03-03-2025 14:05-0400 Systolic blood pressure 118 mm[Hg] Sanket Cruz MD Work Phone: [facility] 02-25-2025 14:07-0400 Body mass index (BMI) [Ratio] 42.93 kg/m2 Sidra Doty APRN.GROUP FITNESS ASSISTANT DEPARTMENT HEAD Work Phone: [facility] 02-25-2025 14:07-0400 Body temperature 97.7 [degF] Sidra Doty APRN.GROUP FITNESS ASSISTANT DEPARTMENT HEAD Work Phone: [facility] 02-25-2025 14:07-0400 Body weight 104.8 kg Sidra Doty APRN.GROUP FITNESS ASSISTANT DEPARTMENT HEAD Work Phone: [facility] 02-25-2025 14:07-0400 Diastolic blood pressure 89 mm[Hg] Sidra Doty APRN.GROUP FITNESS ASSISTANT DEPARTMENT HEAD Work Phone: [facility] 02-25-2025 14:07-0400 Heart rate 79 /min Sidra Doty APRN.GROUP FITNESS ASSISTANT DEPARTMENT HEAD Work Phone: [facility] 02-25-2025 14:07-0400 Respiratory rate 18 /min Sidra Doty APRN.GROUP FITNESS ASSISTANT DEPARTMENT HEAD Work Phone: [facility] 02-25-2025 14:07-0400 SaO2% (BldA) [Mass fraction] 100 % Sidra Doty APRN.GROUP FITNESS ASSISTANT DEPARTMENT HEAD Work Phone: [facility] 02-25-2025 14:07-0400 Systolic blood pressure 154 mm[Hg] Sidra Doty APRN.GROUP FITNESS ASSISTANT DEPARTMENT HEAD Work Phone: [facility] 02-25-2025 13:22-0400 Body temperature 98.6 [degF] Treatment Wstr Work Phone: [facility] 02-25-2025 13:22-0400 Diastolic blood pressure 85 mm[Hg] Treatment Wstr Work Phone: [facility] 02-25-2025 13:22-0400 Heart rate 80 /min Treatment Wstr Work Phone: [facility] 02-25-2025 13:22-0400 Respiratory rate 18 /min Treatment Wstr Work Phone: [facility] 02-25-2025 13:22-0400 SaO2% (BldA) [Mass fraction] 99 % Treatment Wstr Work Phone: [facility] 02-25-2025 13:22-0400 Systolic blood pressure 132 mm[Hg] Treatment Wstr Work Phone: [facility] 02-24-2025 11:20-0400 Body mass index (BMI) [Ratio] 41.99 kg/m2 Tim Yip MD Work Phone: [facility] 02-24-2025 11:20-0400 Body weight 102.51 kg Tim Yip MD Work Phone: [facility] 02-24-2025 11:20-0400 Diastolic blood pressure 86 mm[Hg] Tim Yip MD Work Phone: [facility] 02-24-2025 11:20-0400 Systolic blood pressure 132 mm[Hg] Tim Yip MD Work Phone: [facility] 02-23-2025 13:18-0400 Body temperature 98.2 [degF] Treatment Wstr Work Phone: [facility] 02-23-2025 13:18-0400 Diastolic blood pressure 76 mm[Hg] Treatment Wstr Work Phone: [facility] 02-23-2025 13:18-0400 Heart rate 85 /min Treatment Wstr Work Phone: [facility] 02-23-2025 13:18-0400 Respiratory rate 16 /min Treatment Wstr Work Phone: [facility] 02-23-2025 13:18-0400 SaO2% (BldA) [Mass fraction] 100 % Treatment Wstr Work Phone: [facility] 02-23-2025 13:18-0400 Systolic blood pressure 108 mm[Hg] Treatment Wstr Work Phone: [facility] 02-21-2025 13:59-0400 Body temperature 98.6 [degF] Treatment Wstr Work Phone: [facility] 02-21-2025 13:59-0400 Diastolic blood pressure 85 mm[Hg] Treatment Wstr Work Phone: [facility] 02-21-2025 13:59-0400 Heart rate 89 /min Treatment Wstr Work Phone: [facility] 02-21-2025 13:59-0400 SaO2% (BldA) [Mass fraction] 98 % Treatment Wstr Work Phone: [facility] 02-21-2025 13:59-0400 Systolic blood pressure 146 mm[Hg] Treatment Wstr Work Phone: [facility] 02-16-2025 10:35-0400 Body temperature 98.71 [degF] Treatment Wstr Work Phone: [facility] 02-16-2025 10:35-0400 Diastolic blood pressure 84 mm[Hg] Treatment Wstr Work Phone: [facility] 02-16-2025 10:35-0400 Heart rate 66 /min Treatment Wstr Work Phone: [facility] 02-16-2025 10:35-0400 SaO2% (BldA) [Mass fraction] 100 % Treatment Wstr Work Phone: [facility] 02-16-2025 10:35-0400 Systolic blood pressure 135 mm[Hg] Treatment Wstr Work Phone: [facility] 02-14-2025 07:47-0400 Body temperature 97.39 [degF] Treatment Wstr Work Phone: [facility] 02-14-2025 07:47-0400 Diastolic blood pressure 83 mm[Hg] Treatment Wstr Work Phone: [facility] 02-14-2025 07:47-0400 Heart rate 79 /min Treatment Wstr Work Phone: [facility] 02-14-2025 07:47-0400 SaO2% (BldA) [Mass fraction] 100 % Treatment Wstr Work Phone: [facility] 02-14-2025 07:47-0400 Systolic blood pressure 137 mm[Hg] Treatment Wstr Work Phone: [facility] 02-10-2025 10:23-0400 Body height 156.3 cm Petra Grant Work Phone: [facility] 02-10-2025 10:23-0400 Body mass index (BMI) [Ratio] 43.29 kg/m2 Petra Grant Work Phone: [facility] 02-10-2025 10:23-0400 Body temperature 98.1 [degF] Petra Grant Work Phone: [facility] 02-10-2025 10:23-0400 Body weight 105.69 kg Petra Grant Work Phone: [facility] 02-10-2025 10:23-0400 Diastolic blood pressure 86 mm[Hg] Petra Grant Work Phone: [facility] 02-10-2025 10:23-0400 Heart rate 75 /min Petra Grant Work Phone: [facility] 02-10-2025 10:23-0400 SaO2% (BldA) [Mass fraction] 100 % Petra Grant Work Phone: [facility] 02-10-2025 10:23-0400 Systolic blood pressure 144 mm[Hg] Petra Grant Work Phone: [facility] 02-03-2025 09:29-0400 Body height 155.6 cm Mine Doty MD Work Phone: [facility] 02-03-2025 09:29-0400 Body mass index (BMI) [Ratio] 43.29 kg/m2 Mine Doty MD Work Phone: [facility] 02-03-2025 09:29-0400 Body weight 104.78 kg Mine Doty MD Work Phone: [facility] 02-03-2025 09:29-0400 Diastolic blood pressure 74 mm[Hg] Mine Doty MD Work Phone: [facility] 02-03-2025 09:29-0400 Systolic blood pressure 136 mm[Hg] Mine Doty MD Work Phone: [facility] 01-31-2025 10:51-0400 Body height 155.5 cm Shena Dwyer PA-C Work Phone: [facility] 01-31-2025 10:51-0400 Body mass index (BMI) [Ratio] 43.15 kg/m2 Shena Dwyer PA-C Work Phone: [facility] 01-31-2025 10:51-0400 Body temperature 97.3 [degF] Shena Dwyer PA-C Work Phone: [facility] 01-31-2025 10:51-0400 Body weight 104.33 kg Shena Dwyer PA-C Work Phone: [facility] 01-31-2025 10:51-0400 Diastolic blood pressure 82 mm[Hg] Shena Dwyer PA-C Work Phone: [facility] 01-31-2025 10:51-0400 Heart rate 80 /min Shena Dwyer PA-C Work Phone: [facility] 01-31-2025 10:51-0400 Respiratory rate 18 /min Shena Dwyer PA-C Work Phone: [facility] 01-31-2025 10:51-0400 SaO2% (BldA) [Mass fraction] 100 % Shena Dwyer PA-C Work Phone: [facility] 01-31-2025 10:51-0400 Systolic blood pressure 112 mm[Hg] Shena Dwyer PA-C Work Phone: [facility] 01-20-2025 08:27-0500 Body height 156.2 cm Mine Doty MD Work Phone: [facility] 01-20-2025 08:27-0500 Body mass index (BMI) [Ratio] 42.94 kg/m2 Mine Doty MD Work Phone: [facility] 01-20-2025 08:27-0500 Body weight 104.78 kg Mine Doty MD Work Phone: [facility] 01-20-2025 08:27-0500 Diastolic blood pressure 82 mm[Hg] Mine Doty MD Work Phone: [facility] 01-20-2025 08:27-0500 Systolic blood pressure 124 mm[Hg] Mine Doty MD Work Phone: [facility] 12-02-2024 11:42-0500 Body height 158.8 cm Sanket Cruz MD Work Phone: [facility] 12-02-2024 11:42-0500 Body mass index (BMI) [Ratio] 41.76 kg/m2 Sanket Cruz MD Work Phone: [facility] 12-02-2024 11:42-0500 Body weight 105.23 kg Sanket Cruz MD Work Phone: [facility] 12-02-2024 11:42-0500 Diastolic blood pressure 80 mm[Hg] Sanket Cruz MD Work Phone: [facility] 12-02-2024 11:42-0500 Heart rate 71 /min Sanket Cruz MD Work Phone: [facility] 12-02-2024 11:42-0500 SaO2% (BldA) [Mass fraction] 98 % Sanket Cruz MD Work Phone: [facility] 12-02-2024 11:42-0500 Systolic blood pressure 136 mm[Hg] Sanket Cruz MD Work Phone: [facility] 10-20-2024 13:43-0500 Body mass index (BMI) [Ratio] 43.4 kg/m2 Chapo Shore MD Work Phone: [facility] 10-20-2024 13:43-0500 Body temperature 97.9 [degF] Chapo Shore MD Work Phone: [facility] 10-20-2024 13:43-0500 Body weight 108.5 kg Chapo Shore MD Work Phone: [facility] 10-20-2024 13:43-0500 Diastolic blood pressure 80 mm[Hg] Chapo Shore MD Work Phone: [facility] 10-20-2024 13:43-0500 Heart rate 78 /min Chapo Shore MD Work Phone: [facility] 10-20-2024 13:43-0500 Respiratory rate 16 /min Chapo Shore MD Work Phone: [facility] 10-20-2024 13:43-0500 SaO2% (BldA) [Mass fraction] 100 % Chapo Shore MD Work Phone: [facility] 10-20-2024 13:43-0500 Systolic blood pressure 122 mm[Hg] Chapo Shore MD Work Phone: [facility] 11-08-2022 19:09-0500 Body height 157.48 cm MD Romulo Templeton [facility] Work Phone: 11-08-2022 19:09-0500 Body mass index (BMI) [Ratio] 48.1 kg/m2 MD Romulo Templeton [facility] Work Phone: 11-08-2022 19:09-0500 Body temperature 99.1 [degF] MD Romulo Templeton [facility] Work Phone: 11-08-2022 19:09-0500 Body weight 119.29 kg MD Romulo Templeton [facility] Work Phone: 12-16-2022 19:09-0500 Diastolic blood pressure 75 mm[Hg] MD Romulo Templeton [facility] Work Phone: 11-08-2022 19:09-0500 Heart rate 121 /min MD Romulo Templeton [facility] Work Phone: 11-08-2022 19:09-0500 Respiratory rate 18 /min MD Romulo Templeton [facility] Work Phone: 11-08-2022 19:09-0500 SaO2% (BldA) [Mass fraction] 98 % MD Romulo Templeton [facility] Work Phone: 11-08-2022 19:09-0500 Systolic blood pressure 113 mm[Hg] MD Romulo Templeton [facility] Work Phone: 10-24-2022 10:30-0500 Body height 158.1 cm Sanket Cruz MD Work Phone: [facility] 10-24-2022 10:30-0500 Body weight 119.3 kg Sanket Cruz MD Work Phone: [facility] 10-24-2022 10:30-0500 Diastolic blood pressure 86 mm[Hg] Sanket Cruz MD Work Phone: [facility] 10-24-2022 10:30-0500 Heart rate 70 /min Sanket Cruz MD Work Phone: [facility] 10-24-2022 10:30-0500 Respiratory rate 16 /min Sanket Cruz MD Work Phone: [facility] 10-24-2022 10:30-0500 Systolic blood pressure 118 mm[Hg] Sanket Cruz MD Work Phone: [facility] 10-03-2022 15:45-0500 Body temperature 98 [degF] MD Romulo Templeton [facility] Work Phone: 10-03-2022 15:45-0500 Diastolic blood pressure 78 mm[Hg] MD Romulo Templeton [facility] Work Phone: 10-03-2022 15:45-0500 Heart rate 97 /min MD Romulo Templeton [facility] Work Phone: 10-03-2022 15:45-0500 Respiratory rate 14 /min MD Romulo Templeton [facility] Work Phone: 10-03-2022 15:45-0500 SaO2% (BldA) [Mass fraction] 99 % [facility] Work Phone: 10-03-2022 15:45-0500 Systolic blood pressure 124 mm[Hg] MD Romulo Templeton [facility] Work Phone: 05-30-2022 11:20-0400 Diastolic blood pressure 60 mm[Hg] Zenobia Sullinger BRICK OR BLOCK MAKER.GROUP FITNESS ASSISTANT DEPARTMENT HEAD Work Phone: [facility] 05-30-2022 11:20-0400 Heart rate 64 /min Zenobia Sullinger BRICK OR BLOCK MAKER.GROUP FITNESS ASSISTANT DEPARTMENT HEAD Work Phone: [facility] 05-30-2022 11:20-0400 Respiratory rate 18 /min Zenobia Sullinger BRICK OR BLOCK MAKER.GROUP FITNESS ASSISTANT DEPARTMENT HEAD Work Phone: [facility] 05-30-2022 11:20-0400 SaO2% (BldA) [Mass fraction] 98 % Zenobia Sullinger BRICK OR BLOCK MAKER.GROUP FITNESS ASSISTANT DEPARTMENT HEAD Work Phone: [facility] 05-30-2022 11:20-0400 Systolic blood pressure 128 mm[Hg] Zenobia Sullinger BRICK OR BLOCK MAKER.GROUP FITNESS ASSISTANT DEPARTMENT HEAD Work Phone: [facility] 05-30-2022 08:38-0400 Body temperature 98.2 [degF] Zenobia Sullinger BRICK OR BLOCK MAKER.GROUP FITNESS ASSISTANT DEPARTMENT HEAD Work Phone: [facility] 03-01-2022 09:52-0400 Body weight 120.66 kg Sanket Cruz MD Work Phone: [facility] 03-01-2022 09:52-0400 Diastolic blood pressure 84 mm[Hg] Sankte Cruz MD Work Phone: [facility] 03-01-2022 09:52-0400 Heart rate 78 /min Sanket Cruz MD Work Phone: [facility] 03-01-2022 09:52-0400 Respiratory rate 12 /min Sanket Cruz MD Work Phone: [facility] 03-01-2022 09:52-0400 Systolic blood pressure 126 mm[Hg] Sanket Cruz MD Work Phone: [facility] 02-14-2022 08:18-0400 Body weight 121.11 kg Mine Doty MD Work Phone: [facility] 02-14-2022 08:18-0400 Diastolic blood pressure 90 mm[Hg] Mine Doty MD Work Phone: [facility] 02-14-2022 08:18-0400 Systolic blood pressure 120 mm[Hg] Mine Doty MD Work Phone: [facility] Encounters Encounter Date Encounter Type Care Provider Facility Start: 06-02-2025 End: 06-02-2025 Chart abstracting Sanket Cruz MD Work Phone: [facility] Comment on above: Abstract (Ortho Proc edure) Start: 05-25-2025 End: 05-25-2025 ambulatory Tim Yip MD Work Phone: OB/Gynecology Comment on above: pathology Start: 05-25-2025 End: 05-25-2025 E-mail encounter from caregiver Tim Yip MD Work Phone: OB/Gynecology Start: 05-19-2025 End: 05-19-2025 Patient encounter procedure Tim Yip MD Work Phone: OB/Gynecology Comment on above: Postop check (Primar y Dx) Start: 05-19-2025 End: 05-19-2025 ambulatory TIM YIP Facility:[facility] Start: 05-17-2025 End: 05-17-2025 Chart abstracting Sanket Cruz MD Work Phone: [facility] [place] Comment on above: Outside Ortho Proced ure Start: 05-12-2025 End: 05-13-2025 Patient encounter procedure Tim Yip MD Work Phone: OB/Gynecology Start: 05-12-2025 End: 05-12-2025 Admission to same day surgery center Dr. Tim Yip MD -Surgical Day Care Start: 05-12-2025 End: 05-13-2025 ambulatory No Primary Care Physician [facility] Work Phone: Comment on above: Menorrhagia with reg ular cycle (Primary Dx); Iron deficiency anemia due to chronic blood loss; Deep dyspareunia; Fibroids, subserous Start: 05-10-2025 End: 05-10-2025 ambulatory No Primary Care Physician [facility] Work Phone: Start: 05-10-2025 End: 05-10-[address] Erick Brownlee MD -Radiology [facility] Work Phone: Start: 05-10-2025 ambulatory SANKET CRUZ [facility] ty:[facility] Start: 05-10-2025 End: 05-10-2025 Subsequent hospital visit by physician [facility] Work Phone: Radiology Comment on above: Abnormal mammogram [ R92.8] Start: 05-10-2025 End: 05-10-2025 ambulatory Erick Brownlee Facility: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) Start: 04-26-2025 End: 04-26-2025 ambulatory SANKET CRUZ Facility:[facility] Start: 04-22-2025 End: 04-22-2025 ambulatory SANKET CRUZ Facility:[facility] Start: 04-21-2025 End: 04-21-2025 Patient encounter procedure Tim Yip MD Work Phone: OB/Gynecology Comment on above: Menorrhagia with reg ular cycle (Primary Dx); Iron deficiency anemia due to chronic blood loss; Fibroids, subserous; Deep dyspareunia Start: 04-21-2025 End: 04-21-2025 ambulatory TIM YIP Facility:[facility] Start: 04-07-2025 End: 04-07-2025 Patient encounter procedure Brooke Duncan MD Work Phone: NEUROLOGY Comment on above: IIH (idiopathic intr acranial hypertension) (Primary Dx); Abnormal MRI; Pulsatile tinnitus, left ear; 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; Class 3 severe obesity with serious comorbidity and body mass index (BMI) of 40.0 to 44.9 in adult, unspecified obesity type Start: 04-07-2025 End: 04-07-2025 ambulatory BROOKE DUNCAN Facility:[facility] Start: 03-28-2025 End: 04-07-2025 ambulatory Tanya Vernon APRN.GROUP FITNESS ASSISTANT DEPARTMENT HEAD Work Phone: Neurology Comment on above: Lumbar Puncture Injection Start: 03-28-2025 End: 03-29-2025 Refill Mine Doty MD Work Phone: OB/Gynecology Comment on above: Med Change Request Start: 03-28-2025 End: 03-29-2025 Telephone encounter Neurology Provider [facility] Comment on above: Future Appointment ( New Patient [place] Any) Start: 03-24-2025 End: 03-25-2025 Follow-up encounter Tanya Vernon APRN.GROUP FITNESS ASSISTANT DEPARTMENT HEAD Work Phone: Neurology Start: 03-18-2025 ambulatory SANKET CRUZ [facility] ty:[facility] Start: 03-11-2025 End: 03-11-2025 Refill Tanya Vernon APRN.GROUP FITNESS ASSISTANT DEPARTMENT HEAD Work Phone: Neurology Comment on above: Med Change Request Start: 03-03-2025 End: 03-03-2025 Patient encounter procedure Sanket Cruz MD Work Phone: [facility] Comment on above: Acute otitis media, bilateral (Primary Dx); Right ear pain; Iron deficiency anemia due to chronic blood loss; Pseudotumor cerebri; Vitamin D deficiency; Inflammatory polyarthropathy (HCC); Fibroids, subserous Start: 03-03-2025 End: 03-03-2025 ambulatory SANKET CRUZ Facility:[facility] Start: 03-02-2025 End: 03-23-2025 Admission to same day surgery center Tim Yip MD Work Phone: OB/Gynecology Comment on above: Surgery scheduling Start: 03-02-2025 End: 03-23-2025 ambulatory Tim Yip MD Work Phone: OB/Gynecology Start: 02-25-2025 End: 02-25-2025 Patient encounter procedure Sidra Doty APRN.[facility] Work Phone: [facility] Comment on above: Acute otitis media, left (Primary Dx) Start: 02-25-2025 End: 04-05-2025 ambulatory Treatment [facility] Work Phone: Hematology/Oncology Comment on above: Iron deficiency anem ia due to chronic blood loss (Primary Dx); Low iron Primary osteoarthrit is of right hip (Primary Dx); Iron deficiency anemia due to chronic blood loss; Low iron Start: 02-24-2025 End: 02-24-2025 ambulatory TIM YIP Facility:[facility] Start: 02-24-2025 End: 02-24-2025 Patient encounter procedure Tim Yip MD Work Phone: OB/Gynecology Comment on above: Iron deficiency anem ia due to chronic blood loss (Primary Dx); Menorrhagia with regular cycle; Fibroids, subserous; Deep dyspareunia; Chronic pelvic pain in female Start: 02-23-2025 End: 02-23-2025 ambulatory Treatment 14 [facility] Work Phone: Hematology/Oncology Comment on above: Iron deficiency anem ia due to chronic blood loss (Primary Dx); Low iron Start: 02-22-2025 End: 02-22-2025 Telephone encounter Adelina CARPENTER Hematology/Oncology Comment on above: Social Work Services ; 1st Time Treatment Report Start: 02-21-2025 End: 02-21-2025 ambulatory Treatment Rm 15 [facility] Work Phone: Hematology/Oncology Comment on above: Iron deficiency anem ia due to chronic blood loss (Primary Dx); Low iron Start: 02-17-2025 End: 02-17-2025 ambulatory Tanya Vernon APRN.GROUP FITNESS ASSISTANT DEPARTMENT HEAD Work Phone: Neurology Comment on above: IIH (idiopathic intr acranial hypertension) (Primary Dx); Chronic intractable headache, unspecified headache type Start: 02-17-2025 End: 02-17-2025 Telemedicine consultation with patient Tanya Vernon APRN.GROUP FITNESS ASSISTANT DEPARTMENT HEAD Work Phone: Neurology Start: 02-16-2025 End: 02-16-2025 ambulatory Treatment Rm 15 [facility] Work Phone: Hematology/Oncology Comment on above: Iron deficiency anem ia due to chronic blood loss (Primary Dx); Low iron Start: 02-15-2025 End: 02-15-2025 Telephone encounter Damien Shaver MD Work Phone: Neurology Comment on above: Appointment Reschedu led; Appointment Cancelled Start: 02-14-2025 End: 02-14-2025 ambulatory Treatment Rm 14 [facility] Work Phone: Hematology/Oncology Comment on above: Iron [...] Start: 02-09-2025 End: 02-09-2025 ambulatory Amaris Hopper RNslide developer [place] [id number] Comment on above: Blood Management Start: 02-03-2025 End: 02-03-2025 ambulatory SANKET CRUZ Facility:[facility] Start: 02-03-2025 End: 02-03-2025 Patient encounter procedure Mine Doty MD Work Phone: OB/Gynecology Comment on above: Encounter for screen ing for malignant neoplasm of cervix (Primary Dx); Special screening examination for human papillomavirus (HPV); Encounter for gynecological examination (general) (routine) without abnormal findings; Iron deficiency anemia, unspecified iron deficiency anemia type Start: 02-03-2025 End: 02-03-2025 Patient encounter status Mine Doty MD Work Phone: [facility] Start: 02-02-2025 End: 02-02-2025 ambulatory Shena Dwyer PA-C Work Phone: [facility] Comment on above: Urine test result Start: 02-01-2025 End: 02-01-2025 Follow-up encounter Shena Dwyer PA-C Work Phone: [facility] Start: 01-31-2025 End: 01-31-2025 Telephone encounter Ankur Sears [address] Start: 01-31-2025 End: 01-31-2025 Patient encounter procedure Shena Dwyer PA-C Work Phone: [facility] Comment on above: Well adult exam [...] encounter status Shena Dwyer PA-C Work Phone: [facility] Start: 01-31-2025 End: 01-31-2025 ambulatory SANKET CRUZ Facility:[facility] Start: 01-27-2025 End: 01-27-2025 ambulatory No Primary Care Physician [facility] Work Phone: Start: 01-27-2025 End: 01-27-[address] Erick Brownlee MD -Radiology, [facility] Work Phone: Start: 01-27-2025 End: 01-27-2025 ambulatory Erick Brownlee Facility:[facility] Start: 01-21-2025 End: 03-23-2025 Follow-up encounter Mine Doty MD Work Phone: OB/Gynecology Start: 01-21-2025 End: 01-21-2025 ambulatory Unit Manager [employer] [facility] [employer] Work Phone: OB/Gynecology Start: 01-21-2025 End: 01-21-2025 Patient encounter procedure [employer] [facility] OB/Gynecology Start: 01-20-2025 End: 01-20-2025 ambulatory SANKET CRUZ Facility:[facility] Start: 01-20-2025 End: 01-20-2025 Patient encounter procedure Mine Doty MD Work Phone: OB/Gynecology Comment on above: Abnormal mammogram ( Primary Dx); Abnormal uterine bleeding (AUB); Malaise and fatigue Start: 01-03-2025 End: 01-03-2025 ambulatory SANKET CRUZ Facility:[facility] Start: 01-03-2025 End: 01-03-2025 Patient encounter procedure Erick Brownlee MD Work Phone: Orthopaedics Comment on above: Primary osteoarthrit is of right hip (Primary Dx); Chronic right hip pain Start: 12-30-2024 End: 12-31-2024 Telephone encounter Sanket Cruz MD Work Phone: [facility] Comment on above: Results Start: 12-28-2024 End: 12-28-2024 ambulatory SANKET CRUZ Facility:[facility] Start: 12-28-2024 End: 12-28-2024 Subsequent hospital visit by physician [facility] Work Phone: Radiology Comment on above: Chronic right hip pa in [M25.551, G89.29] Start: 12-02-2024 End: 12-02-2024 Patient encounter procedure Sanket Cruz MD Work Phone: [facility] [place] Comment on above: Chronic right hip pa in (Primary Dx) Start: 12-02-2024 End: 12-02-2024 ambulatory SANKET CRUZ Facility:[facility] Start: 11-04-2024 End: 11-04-2024 Telephone encounter Funmilayo Davies BRICK OR BLOCK MAKER.GROUP FITNESS ASSISTANT DEPARTMENT HEAD Work Phone: [facility] Comment on above: Results Start: 11-03-2024 End: 11-03-2024 ambulatory FUNMILAYO DAVIES Facility:[facility] Start: 10-20-2024 End: 10-20-2024 ambulatory SANKET CRUZ Facility:[facility] Start: 10-20-2024 End: 10-20-2024 Office outpatient visit 15 minutes Chapo Shore MD Work Phone: [facility] Comment on above: Otalgia, right ear ( Primary Dx); Fever, unspecified fever cause Start: 04-13-2024 Telephone encounter Funmilayo smith APRN.GROUP FITNESS ASSISTANT DEPARTMENT HEAD Work Phone: [facility] Comment on above: Results Start: 04-13-2024 End: 04-13-2024 Subsequent hospital visit by physician [facility] Work Phone: Radiology Comment on above: Mass of left breast, unspecified quadrant [N63.20] Start: 10-08-2023 Telephone encounter Sanket Cruz MD Work Phone: [facility] Comment on above: Results Start: 10-08-2023 End: 10-08-2023 [facility] Work Phone: [facility] Comment on above: Abnormal mammogram [ R92.8] Start: 09-16-2023 Documentation procedure [facility]iel [facility] Start: 09-16-2023 Letter encounter Mammography Coordinator [facility] Department Start: 09-16-2023 Telephone encounter Sanket Cruz MD Work Phone: [facility] Comment on above: Results; Appointment Start: 09-15-2023 End: 09-15-2023 Subsequent hospital visit by physician Screen Mammo [facility] Comment on above: Encounter for screen ing mammogram for breast cancer [Z12.31] Start: 11-16-2022 Refill Tanya Rolle usen BRICK OR BLOCK MAKER.GROUP FITNESS ASSISTANT DEPARTMENT HEAD Work Phone: Neurology Comment on above: Refill Request Start: 11-08-2022 End: 11-08-2022 Emergency department patient visit MD Romulo Templeton [facility]Emergency Department Start: 11-07-2022 ambulatory Sanket bojorquez MD Work Phone: [facility] Comment on above: Vertigo Start: 10-24-2022 End: 10-24-2022 Patient encounter procedure Sanket Cruz MD Work Phone: [facility] Comment on above: Well adult exam ([place] the[place] Dx); Anxiety with depression; GERD without esophagitis; Elevated hemoglobin A1c; Inflammatory polyarthropathy (HCC); Pseudotumor cerebri; MVP (mitral valve prolapse); Acute otitis externa of right ear, unspecified type; Acute otitis media, right; Iron deficiency anemia, unspecified iron deficiency anemia type Start: 10-24-2022 End: 10-24-2022 Patient encounter status Sanket Cruz MD Work Phone: [facility] Start: 10-08-2022 End: 10-08-2022 ambulatory MD Romulo [facility] Work Phone: Start: 10-08-2022 End: 10-08-2022 Discharged Recurring MD Romulo Templeton [facility]-Physical Therapy Start: 10-08-2022 Registered Recurring MD Romulo Templeton [facility]-Physical Therapy Start: 10-03-2022 End: 10-03-2022 Patient encounter procedure MD Romulo Templeton [facility] Start: 09-07-2022 Refill Tanya johnson BRICK OR BLOCK MAKER.GROUP FITNESS ASSISTANT DEPARTMENT HEAD Work Phone: Neurology Comment on above: Refill Request Start: 08-15-2022 End: 08-15-2022 ambulatory Tanya Vernon APRN.GROUP FITNESS ASSISTANT DEPARTMENT HEAD Work Phone: Neurology Comment on above: Chronic intractable headache, unspecified headache type (Primary Dx); Pseudotumor cerebri; Sleep apnea-like behavior Start: 08-15-2022 End: 08-15-2022 Telemedicine consultation with patient Tanya Vernon APRN.GROUP FITNESS ASSISTANT DEPARTMENT HEAD Work Phone: [facility] Start: 07-01-2022 Refill Damien ahmadi MD Work Phone: Neurology Comment on above: Med Change Request Start: 05-30-2022 Telephone encounter Damien Shaver MD Work Phone: Neurology Comment on above: Results Start: 05-30-2022 End: 05-30-2022 Subsequent hospital visit by physician Zenobia Wetzel APRN.GROUP FITNESS ASSISTANT DEPARTMENT HEAD Work Phone: [facility] Comment on above: Pseudotumor cerebri [G93.2] Start: [...] Subsequent hospital visit by physician [facility] (I-Stat/1.5t) Work Phone: Radiology Comment on above: Pseudotumor cerebri [G93.2] Start: 03-01-2022 End: 03-01-2022 Patient encounter procedure Sanket Cruz MD Work Phone: [facility] Comment on above: GERD without esophag itis [...] End: 02-15-2022 Subsequent hospital visit by physician [facility] Work Phone: Radiology Comment on above: Pelvic pain in femal e [R10.2] Start: 02-14-2022 End: 02-14-2022 Patient encounter procedure Mine Doty MD Work Phone: OB/Gynecology Comment on above: Pelvic pain in femal e (Primary Dx) Start: 02-11-2022 E-mail encounter fro m caregiver Mine Doty MD Work Phone: [facility] Start: 02-11-2022 Patient encounter procedure Mine Doty MD Work Phone: OB/Gynecology Comment on above: Request an Appointme nt Start: 06-25-2021 Patient encounter status Julien Doty MD Work Phone: [facility] Work Phone: Start: 12-12-2016 End: 01-14-2017 Patient requested procedure Funmilayo Davies APRN.GROUP FITNESS ASSISTANT DEPARTMENT HEAD Work Phone: [facility] End: 10-26-2014 Patient encounter status Funmilayo Davies APRN.GROUP FITNESS ASSISTANT DEPARTMENT HEAD Work Phone: [facility] Procedures Date Procedure Procedure Detail Performing Clinician Start: 05-12-2025 Abdominal hysterectomy No Primary Care Physician Start: 05-10-2025 Procedure on extremity No Primary Care Physician Start: 05-10-2025 Us breast uni real t [...] section History of delivery, currently Funmilayo Davies JOSUÉ.GROUP FITNESS ASSISTANT DEPARTMENT HEAD Work Phone: Viral antigen assay MD Romulo [facility] Plan of Treatment Date Care Activity Detail Author Start: 02-03-2030 Screening for malign ant neoplasm of cervix Cervical Cancer Screening [facility] Start: 06-05-2027 Urine microalbumin profile [facility] Start: 02-07-2026 End: 02-07-2026 Patient encounter procedure 02/07/2026 1:20 PM EDT Office Visit OB/Gynecology [address] [place] [address] Mine Doty MD [address] [place] [address] Annual OB/Gynecology Comment on above: Annual Start: 01-31-2026 Covid-19 Vaccine ( season) Covid-19 Vaccine ( season) [facility] Comment on above: Postponed from 07/25 (Declined at this time) Start: 11-03-2025 Screening for malign ant neoplasm of breast Mammogram Screening [facility] Start: 09-05-2025 End: 09-05-2025 Patient encounter procedure 09/05/2025 2:00 PM EDT Office Visit Family [facility] [address] [place] [address] Sanket Cruz MD [address] [place] [address] 6 month follow up [facility] Comment on above: 6 month follow up Start: 07-25-2025 Influenza vaccination [facility] Start: 06-22-2025 End: 06-22-2025 Patient encounter procedure 06/22/2025 10:50 AM EDT Office Visit OB/Gynecology [address] [place] [address] Tim Yip MD [address] [place] [address] POST OP OB/Gynecology Comment on above: POST OP Start: 06-06-2025 End: 06-06-2025 Patient encounter procedure 06/06/2025 9:00 AM EDT Office Visit OPHT Ophthalmology [address] [address] Ashkan Gomez, [address] [place] [address] [facility] Ophthalmology Comment on above: [facility] Start: 05-23-2025 Influenza vaccination Influenza Vacc ine (#1) [facility] Comment on above: Postponed from 07/25 (Declined at this time) Start: 05-19-2025 End: 05-19-2025 Patient encounter procedure 05/19/2025 9:20 AM EDT Office Visit OB/Gynecology [address] [place] [address] Tim Yip MD [address] [place] [address] POST OP OB/Gynecology Comment on above: POST OP Start: 05-12-[address] [facility] Start: 05-12-2025 Medication education [facility] Start: 05-12-2025 Patient discharge [facility] Start: 05-12-[address] [facility] Start: 05-12-[address] [facility] Start: 05-12-[address] [facility] Start: 05-12-[address] [facility] Start: 05-12-2025 [facility] Start: 05-10-2025 End: 05-10-2025 Patient encounter procedure Mammogram Comment on above: Abnormal mammogram [ R92.8] Comp- LT 6 month f/u Start: 05-05-2025 End: 05-05-2025 ambulatory 05/05/2025 10:20 AM EDT [facility] NEUROLOGY [address] [address] Brooke Duncan MD [address] [place] [address] vv per [facility] NEUROLOGY Comment on above: vv per JT Start: 05-02-2025 End: 05-02-2025 Patient encounter procedure 05/02/2025 7:30 AM EDT Appointment Mammogram [address] [place] [place] [address] Mammogram Start: 04-26-2025 End: 04-26-2025 Admission to same day surgery center 04/26/2025 10:30 AM EDT - 04/26/2025 11:30 AM EDT Surgery Angio [address] [place] [address] FRAME CATCHER [address] [facility] [place] [address] SPINAL PUNCTURE LUMBAR DIAGNOSTIC Angio Comment on above: SPINAL PUNCTURE LUMB AR DIAGNOSTIC Start: 04-26-2025 Subsequent hospital visit by physician 04/26/2025 10:30 AM EDT Hospital Encounter Angio [address] [place] [address] FRAME CATCHER [address] [place] [address] IIH (idiopathic intracranial hypertension) [G93.2] Angio Comment on above: IIH (idiopathic intr acranial hypertension) [G93.2] Start: 04-26-2025 End: 04-26-2025 Diagnostic lumbar spinal puncture [facility] ANGIO HB6 Start: 04-22-2025 End: 04-22-2025 ambulatory 04/22/2025 7:00 AM EDT Results Only [facility] [address] [place] [employer], [place] [id number] CBC/IRON STUDIES/FERRITIN [facility] Comment on above: CBC/IRON STUDIES/RADHAMES RITIN Start: 04-21-2025 End: 04-21-2025 Patient encounter procedure 04/21/2025 2:50 PM EDT Office Visit OB/Gynecology [address] [place] [place] [address] Tim Yip MD [address] [place] [address] surgery 05/12 @ [facility] OB/Gynecology Comment on above: surgery 05/12 @ [facility] Start: 04-07-2025 End: 04-07-2025 Patient encounter procedure 04/07/2025 8:00 AM EDT Office Visit NEUROLOGY [address] [place], [place] [address] Brooke Duncan MD [address] [place] [address] [facility] NEUROLOGY Comment on above: IIH Start: 03-18-2025 End: 03-18-2025 Patient encounter procedure 03/18/2025 1:15 PM EDT Appointment [facility] [address] [place] [address] MRI BRAIN WO/W IVCON [facility] Comment on above: MRI BRAIN WO/W IVCON Start: 03-03-2025 End: 03-03-2025 Patient encounter procedure 03/03/2025 2:20 PM EDT Office Visit [facility] [address] [place] [address] Sanket Cruz MD [address] [facility] [place] [address] follow up [facility] Comment on above: follow up Start: 02-25-2025 End: 02-25-2025 ambulatory 02/25/2025 1:30 PM EDT Infusion Center Hematology/Oncology [address] [place] [address] 2ND FLOOR Hematology/Oncology Comment on above: 2ND FLOOR Start: 02-24-2025 End: 02-24-2025 Patient encounter procedure 02/24/2025 11:10 AM EDT Office Visit OB/Gynecology [address] [place] [address] Tim Yip MD [address] [place] [address] Consult for hysterectomy (02/08/25 MyChart [facility]) OB/Gynecology Comment on above: Consult for hysterec nancy (02/08/25 MyChart [facility]) Start: 02-23-2025 End: 02-23-2025 ambulatory 02/23/2025 1:30 PM EDT Infusion Center Hematology/Oncology [address] [place] [address] 2ND FLOOR Hematology/Oncology Comment on above: 2ND FLOOR Start: 02-21-2025 End: 02-21-2025 ambulatory 02/21/2025 2:00 PM EDT Infusion Center Hematology/Oncology [address] [place] [place] [address] 2ND FLOOR Hematology/Oncology Comment on above: 2ND FLOOR Start: 02-18-2025 End: 02-18-2025 Patient encounter procedure 02/18/2025 3:20 PM EDT Office Visit Neurology [address] [place], [place] [address] Damien Shaver Jr., MD [address] [place], [place] [id number] Pressure and fluid built back up in head Neurology Comment on above: Pressure and fluid b uilt back up in head Start: 02-17-2025 End: 02-17-2025 Patient encounter procedure 02/17/2025 8:00 AM EDT Office Visit Neurology [address] [facility] [address] [place] [address] Brianna Rush APRN.GROUP FITNESS ASSISTANT DEPARTMENT HEAD [address] [place] [address] Pressure and fluid built back up in head (no availability with established neurology team until June 2025) Neurology Comment on above: Pressure and fluid b uilt back up in head (no availability with established neurology team until June 2025) Start: 02-17-2025 End: 02-17-2025 ambulatory 02/17/2025 7:00 AM EDT [facility] Neurology [address] [address] Tanya Vernon APRN.GROUP FITNESS ASSISTANT DEPARTMENT HEAD [address] [address] Pressure and fluid built back up in head (no availability with established neurology team until June 2025) Neurology Comment on above: Pressure and fluid b uilt back up in head (no availability with established neurology team until June 2025) Start: 02-16-2025 End: 02-16-2025 ambulatory 02/16/2025 10:30 AM EDT [facility] Hematology/Oncology [address] [place], [place] [id number] 2ND FLOOR Hematology/Oncology Comment on above: 2ND FLOOR Start: 02-10-2025 End: 02-10-2025 ambulatory Hematology/Oncology Comment on above: 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 [place] [id number] US follow up OB/Gynecology Comment on above: US follow up Start: 01-31-2025 End: 05-02-2025 25-hydroxyvitamin D3 [Mass/volume] in Serum or Plasma [facility] Comment on above: Expected: 01/31/2025 , Expires: 05/02/2025 Start: 01-31-2025 End: 05-02-2025 BREANN BY IFA WITH REFLEX [facility] Comment on above: Expected: 01/31/2025 , Expires: 05/02/2025 Start: 01-31-2025 End: 05-02-2025 CBC W Auto Differential panel - Blood [facility] Work Phone: Comment on above: Expected: 01/31/2025 , Expires: 05/02/2025 Start: 01-31-2025 End: 05-02-2025 Cobalamin (Vitamin B12) [Mass/volume] in Serum or Plasma [facility] Comment on above: Expected: 01/31/2025 , Expires: 05/02/2025 Start: 01-31-2025 End: 05-02-2025 Comprehensive metabolic 2000 panel - Serum or Plasma [facility] Comment on above: Expected: 01/31/2025 , Expires: 05/02/2025 Start: 01-31-2025 End: 05-02-2025 Folate [Mass/volume] in Serum or Plasma [facility] Comment on above: Expected: 01/31/2025 , Expires: 05/02/2025 Start: 01-31-2025 End: 05-02-2025 Hemoglobin A1c in Blood [facility] Comment on above: Expected: 01/31/2025 , Expires: 05/02/2025 Start: 01-31-2025 End: 05-02-2025 LIPID PANEL, NONFASTING [facility] Comment on above: Expected: 01/31/2025 , Expires: 05/02/2025 Start: 01-31-2025 End: 05-02-2025 Urinalysis complete panel - Urine [facility] Comment on above: Expected: 01/31/2025 , Expires: 05/02/2025 Start: 01-31-2025 End: 01-31-2025 Patient encounter procedure 01/31/2025 11:40 AM EDT Office Visit [facility] [place] [address] [place], [place] [address] Shena Dwyer PA-C [address] [place] [address] physical [facility] [place] Comment on above: physical Start: 01-21-2025 End: 01-21-2025 ambulatory 01/21/2025 8:30 AM EST Procedure OB/Gynecology [address] [place] [address] 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, 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 Manager [employer] [address] [place] [address] Abnormal uterine bleeding (AUB) [N93.9] OB/Gynecology Comment on above: Abnormal uterine ble eding (AUB) [N93.9] Start: 01-20-2025 End: 04-21-2025 Ferritin [Mass/volume] in Serum or Plasma [facility] Comment on above: Expected: 01/20/2025 , Expires: 04/21/2025 Start: 01-20-2025 End: 04-21-2025 Iron and Iron binding capacity panel - Serum or Plasma [facility] Comment on above: Expected: 01/20/2025 , Expires: 04/21/2025 Start: 01-20-2025 End: 04-21-2025 Thyrotropin [Units/volume] in Serum or Plasma [facility] Comment on above: Expected: 01/20/2025 , Expires: 04/21/2025 Start: 01-20-2025 End: 01-20-2026 US Pelvis PELVIC US [facility]I Anc Imaging Routine Abnormal uterine bleeding (AUB) Expected: 01/20/2025, Expires: 01/20/2026 [facility] Comment on above: Expected: 01/20/2025 , Expires: 01/20/2026 Start: 01-20-2025 End: 01-20-2025 Patient encounter procedure 01/20/2025 8:30 AM EST Office Visit OB/Gynecology [address] [place], [place] [address] Mine Doty MD [address] [place] [address] annual, last seen 2019 OB/Gynecology Comment on above: annual, last seen Start: 01-03-2025 End: 01-03-2025 Patient encounter procedure 01/03/2025 2:15 PM EST Office Visit Orthopaedics [address] [place], [place] [id number] Erick Brownlee MD [address] [place] [address] Chronic right hip pain [M25.551, G89.29] Orthopaedics [...] breast, unspecified quadrant Expected: 10/14/2024, Expires: 05/13/2025 [facility] Work Phone: Comment on above: Expected: 10/14/2024 , Expires: 05/13/2025 Start: 10-14-2024 End: 05-13-2025 US Breast - left limited US BREAST LTD LEFT Radiology Routine Mass of left breast, unspecified quadrant Expected: 10/14/2024, Expires: 05/13/2025 [facility] Comment on above: Expected: 10/14/2024 , Expires: 05/13/2025 Start: 09-15-2024 Mammography Mammogram Screening [facility] Start: 09-15-2024 Screening for malign ant neoplasm of breast Mammogram Screening [facility] Start: 07-25-2024 Covid-19 Vaccine ( season) Covid-19 Vaccine () [facility] Start: 07-25-2024 Influenza vaccination [facility] Start: 04-08-2024 End: 11-07-2024 SARATH DIAGNOSTIC LEFT SARATH DIAGNOSTIC LEFT Radiology Routine Mass of left breast, unspecified quadrant Abnormal mammogram Expected: 04/08/2024, Expires: 11/07/2024 [facility] Work Phone: Comment on above: Expected: 04/08/2024 , Expires: 11/07/2024 Start: 04-08-2024 End: 11-07-2024 US BREAST LTD LEFT US BREAST LTD LEFT Radiology Routine Mass of left breast, unspecified quadrant Abnormal mammogram Expected: 04/08/2024, Expires: 11/07/2024 [facility] Work Phone: Comment on above: Expected: 04/08/2024 , Expires: 11/07/2024 Start: 02-24-2024 HPV TESTING HPV TESTING [facility] Start: 02-24-2024 PAP TESTING PAP TESTING [facility] Start: 02-24-2024 Screening for malign ant neoplasm of cervix [facility] Start: 10-24-2023 COVID-19 VACCINE (3 - Booster for Pfizer series) COVID-19 VACCINE (3 - Booster for Pfizer series) [facility] Comment on above: Postponed from 06/01 (Declined at this time) Start: 07-25-2023 Covid-19 Vaccine () Covid-19 Vaccine () [facility] Start: 07-25-2023 Influenza vaccination Influenza Vacc ine (#1) [facility] Start: 04-11-2023 End: 06-11-2023 CBC W Auto Differential panel - Blood CBC + DIFF Lab Routine Iron deficiency anemia, unspecified iron deficiency anemia type Expected: 04/11/2023, Expires: 06/11/2023 [facility] Work Phone: Comment on above: Expected: 04/11/2023 , Expires: 06/11/2023 Start: 04-11-2023 End: 06-11-2023 Hemoglobin A1c in Blood HGB A1C Lab Routine Elevated hemoglobin A1c Expected: 04/11/2023, Expires: 06/11/2023 [facility] Work Phone: Comment on above: Expected: 04/11/2023 , Expires: 06/11/2023 Start: 04-11-2023 End: 06-11-2023 Iron and Iron binding capacity panel - Serum or Plasma IRON + TIBC Lab Routine Iron deficiency anemia, unspecified iron deficiency anemia type Expected: 04/11/2023, Expires: 06/11/2023 [facility] Work Phone: Comment on above: Expected: 04/11/2023 , Expires: 06/11/2023 Start: 11-24-2022 End: 01-24-2023 Iron and Iron binding capacity panel - Serum or Plasma IRON + TIBC Lab Routine Iron deficiency anemia, unspecified iron deficiency anemia type Expected: 11/24/2022, Expires: 01/24/2023 [facility] Work Phone: Comment on above: Expected: 11/24/2022 , Expires: 01/24/2023 Start: 11-08-2022 [facility] Work Phone: Start: 10-03-2022 Patient referral [facility] Work Phone: Start: 08-16-2022 End: 10-16-2022 CBC W Auto Differential panel - Blood CBC + DIFF Lab Routine Low iron Medication management Expected: 08/16/2022, Expires: 10/16/2022 [facility] Work Phone: Comment on above: Expected: 08/16/2022 , Expires: 10/16/2022 Start: 08-16-2022 End: 10-16-2022 Hemoglobin A1c/Hemoglobin.total in Blood HGB A1C Lab Routine Elevated hemoglobin A1c Expected: 08/16/2022, Expires: 10/16/2022 [facility] Work Phone: Comment on above: Expected: 08/16/2022 , Expires: 10/16/2022 Start: 08-16-2022 End: 10-16-2022 IRON + TIBC IRON + TIBC Lab Routine Low iron Expected: 08/16/2022, Expires: 10/16/2022 [facility] Work Phone: Comment on above: Expected: 08/16/2022 , Expires: 10/16/2022 Start: 08-16-2022 End: 10-16-2022 LIPID PANEL, NONFASTING LIPID PANEL, NONFASTING Lab Routine Encounter for screening for cardiovascular disorders Expected: 08/16/2022, Expires: 10/16/2022 [facility] Work Phone: Comment on above: Expected: 08/16/2022 , Expires: 10/16/2022 Start: 08-16-2022 End: 10-16-2022 Magnesium [Mass/volume] in Serum or Plasma MAGNESIUM BLD Lab Routine GERD without esophagitis Medication management Expected: 08/16/2022, Expires: 10/16/2022 [facility] Work Phone: Comment on above: Expected: 08/16/2022 , Expires: 10/16/2022 Start: 08-16-2022 End: 10-16-2022 VITAMIN B12 BLOOD VITAMIN B12 BLOOD Lab Routine Medication management Expected: 08/16/2022, Expires: 10/16/2022 [facility] Work Phone: Comment on above: Expected: 08/16/2022 , Expires: 10/16/2022 Start: 08-16-2022 End: 10-16-2022 VITAMIN D 25 HYDROXY VITAMIN D 25 HYDROXY Lab Routine Vitamin D deficiency Expected: 08/16/2022, Expires: 10/16/2022 [facility] Work Phone: Comment on above: Expected: 08/16/2022 , Expires: 10/16/2022 Start: 07-25-2022 Influenza vaccination C [facility] Start: 05-23-2022 End: 07-23-2022 Glucose [Mass/volume] in Cerebral spinal fluid GLUCOSE CSF Lab Routine Chronic intractable headache, unspecified headache type Pseudotumor Expected: 05/23/2022, Expires: 07/23/2022 [facility] Work Phone: Comment on above: Expected: 05/23/2022 , Expires: 07/23/2022 Start: 05-23-2022 End: 07-23-2022 Protein [Mass/volume] in Cerebral spinal fluid PROTEIN CSF Lab Routine Chronic intractable headache, unspecified headache type Pseudotumor Expected: 05/23/2022, Expires: 07/23/2022 [facility] Work Phone: Comment on above: Expected: 05/23/2022 , Expires: 07/23/2022 Start: 03-01-2022 End: 05-01-2022 Hemoglobin A1c/Hemoglobin.total in Blood [facility] Work Phone: Comment on above: Expected: 03/01/2022 , Expires: 05/01/2022 Start: 03-01-2022 End: 05-01-2022 T4 FREE/FREE THYROX [facility] Work Phone: Comment on above: Expected: 03/01/2022 , Expires: 05/01/2022 Start: 03-01-2022 End: 05-01-2022 Thyrotropin [Units/volume] in Serum or Plasma [facility] Work Phone: Comment on above: Expected: 03/01/2022 , Expires: 05/01/2022 Start: 09-06-2021 COVID-19 VACCINE (3 - Booster for Pfizer series) COVID-19 VACCINE (3 - Booster for Pfizer series) [facility] Start: 07-25-2021 Influenza vaccination INFLUENZA (#1) [facility] Start: 06-01-2021 COVID-19 VACCINE (3 - Booster for Pfizer series) COVID-19 VACCINE (3 - Booster for Pfizer series) [facility] Start: 1985 HEPATITIS B (1 of 3 - 3-dose series) HEPATITIS B (1 of 3 - 3-dose series) [facility] End: 04-29-2026 CBC W Auto Differential panel - Blood COMPLETE BLOOD COUNT AND DIFFERENTIAL Lab STAT Low iron Iron deficiency anemia, unspecified iron deficiency anemia type Iron deficiency anemia due to chronic blood loss Every 3 months for 4 Occurrences starting 04/29/2025 until 04/29/2026 [facility] Work Phone: Comment on above: Every 3 months for 4 Occurrences starting 04/29/2025 until 04/29/2026 Cell count panel - Cerebral spinal fluid CSF CELL COUNT Lab Routine Chronic intractable headache, unspecified headache type Pseudotumor Ordered: 05/23/2022 [facility] Work Phone: Comment on above: Ordered: 05/23/2022 Cell count panel - Cerebral spinal fluid CSF CELL COUNT Lab Routine IIH (idiopathic intracranial hypertension) Ordered: 03/29/2025 [facility] Comment on above: Ordered: 03/29/2025 CSF ROUT ANALYSIS CSF ROUT JOSÉ SIS Lab Routine IIH (idiopathic intracranial hypertension) Ordered: 03/29/2025 [facility] Work Phone: Comment on above: Ordered: 03/29/2025 End: 12-04-2025 DBT Breast - bilateral screening SARATH SCREENING W DIANN Radiology Routine Breast cyst, left 1 Occurrences starting 11/04/2024 until 12/04/2025 [facility] Work Phone: Comment on above: 1 Occurrences starti ng 11/04/2024 until 12/04/2025 Endometrial bx w/wo endocervix bx w/o dilat spx ENDOMETRIAL BIOPSY Procedures Routine Menorrhagia with regular cycle Ordered: 04/21/2025 [facility] Work Phone: Comment on above: Ordered: 04/21/2025 End: 04-29-2026 Ferritin [Mass/volume] in Serum or Plasma FERRITIN Lab Routine Low iron Iron deficiency anemia, unspecified iron deficiency anemia type Iron deficiency anemia due to chronic blood loss Every 3 months for 4 Occurrences starting 04/29/2025 until 04/29/2026 [facility] Comment on above: Every 3 months for 4 Occurrences starting 04/29/2025 until 04/29/2026 Glucose [Mass/volume ] in Cerebral spinal fluid GLUCOSE CSF Lab Routine IIH (idiopathic intracranial hypertension) Ordered: 03/29/2025 [facility] Comment on above: Ordered: 03/29/2025 End: 01-31-2026 Guidance for injection of Hip IMAGING GUIDED HIP INJECTION RIGHT Radiology Routine Chronic right hip pain Primary osteoarthritis of right hip 1 Occurrences starting 01/03/2025 until 01/31/2026 [facility] Work Phone: Comment on above: 1 Occurrences starti ng 01/03/2025 until 01/31/2026 End: 05-06-2026 Guidance for injection of Hip IMAGING GUIDED HIP INJECTION RIGHT Radiology Routine Primary osteoarthritis of right hip 1 Occurrences starting 04/05/2025 until 05/06/2026 [facility] Work Phone: Comment on above: 1 Occurrences starti ng 04/05/2025 until 05/06/2026 End: 04-29-2026 Iron and Iron binding capacity panel - Serum or Plasma IRON AND TIBC Lab Routine Low iron Iron deficiency anemia, unspecified iron deficiency anemia type Iron deficiency anemia due to chronic blood loss Every 3 months for 4 Occurrences starting 04/29/2025 until 04/29/2026 [facility] Comment on above: Every 3 months for 4 Occurrences starting 04/29/2025 until 04/29/2026 End: 10-15-2024 SARATH DIAGNOSTIC LEFT SARATH DIAGNOSTIC LEFT Radiology Routine Abnormal mammogram 1 Occurrences starting 09/16/2023 until 10/15/2024 [facility] Work Phone: Comment on above: 1 Occurrences starti ng 09/16/2023 until 10/15/2024 End: 02-19-2026 MG Breast - left Diagnostic for implant SARATH DIAGNOSTIC LEFT Radiology Routine Abnormal mammogram 1 Occurrences starting 01/20/2025 until 02/19/2026 [facility] Work Phone: Comment on above: 1 Occurrences starti ng 01/20/2025 until 02/19/2026 End: 03-19-2026 MR Brain WO and W contrast IV MRI BRAIN WO/W IVCON Radiology Routine IIH (idiopathic intracranial hypertension) 1 Occurrences starting 02/17/2025 until 03/19/2026 [facility] Work Phone: Comment on above: 1 Occurrences starti ng 02/17/2025 until 03/19/2026 End: 03-19-2026 MRA Head veins WO and W contrast IV MRV BRAIN WO/W IVCON Radiology Routine IIH (idiopathic intracranial hypertension) 1 Occurrences starting 02/17/2025 until 03/19/2026 [facility] Comment on above: 1 Occurrences starti ng 02/17/2025 until 03/19/2026 End: 03-19-2026 MRA Head vessels WO contrast MRA BRAIN WO IVCON Radiology Routine IIH (idiopathic intracranial hypertension) 1 Occurrences starting 02/17/2025 until 03/19/2026 [facility] Comment on above: 1 Occurrences starti ng 02/17/2025 until 03/19/2026 PAP TEST PAP TEST Lab Jeny kearns Encounter for screening for malignant neoplasm of cervix Special screening examination for human papillomavirus (HPV) 02/03/2025 10:06 AM EDT [facility] Work Phone: Patient referral [facility] Work Phone: PELVIC US WHI PELVIC US WHI An c Imaging Routine Pelvic pain in female Ordered: 02/14/2022 [facility] Work Phone: Comment on above: Ordered: 02/14/2022 Protein [Mass/volume ] in Cerebral spinal fluid PROTEIN CSF Lab Routine IIH (idiopathic intracranial hypertension) Ordered: 03/29/2025 [facility] Comment on above: Ordered: 03/29/2025 RF Guidance for flui d aspiration of Lumbar spine space IR LP FOR DRAINAGE (PRESSURE) Radiology Routine IIH (idiopathic intracranial hypertension) Ordered: 04/15/2025 [facility] Work Phone: Comment on above: Ordered: 04/15/2025 Therapeutic spinal puncture drainage csf LUMBAR PUNCTURE Procedures Routine Pseudotumor cerebri Ordered: 05/16/2022 [facility] Work Phone: Comment on above: Ordered: 05/16/2022 Therapeutic spinal puncture drainage csf LUMBAR PUNCTURE Procedures Routine IIH (idiopathic intracranial hypertension) Ordered: 03/29/2025 [facility] Comment on above: Ordered: 03/29/2025 End: 02-19-2026 US Breast - left limited US BREAST LTD LEFT Radiology Routine Abnormal mammogram 1 Occurrences starting 01/20/2025 until 02/19/2026 [facility] Comment on above: 1 Occurrences starti ng 01/20/2025 until 02/19/2026 End: 10-15-2024 US BREAST LTD LEFT US BREAST LTD LEFT Radiology Routine Abnormal mammogram 1 Occurrences starting 09/16/2023 until 10/15/2024 [facility] Work Phone: Comment on above: 1 Occurrences starti ng 09/16/2023 until 10/15/2024 End: 03-16-2023 Us pelvic nonobstetric image dcmtn limited/f/u US FEMALE PELVIS TRANSABD LTD Radiology Routine Pelvic pain in female 1 Occurrences starting 02/14/2022 until 03/16/2023 [facility] Work Phone: Comment on above: 1 Occurrences starti ng 02/14/2022 until 03/16/2023 End: 03-16-2023 Us transvaginal US FEMALE PELVIS TRANSVAG Radiology Routine Pelvic pain in female 1 Occurrences starting 02/14/2022 until 03/16/2023 [facility] Work Phone: Comment on above: 1 Occurrences starti ng 02/14/2022 until 03/16/2023 End: 01-01-2026 XR Pelvis and Hip - right AP and Lateral frog XR HIP GENERAL 3V PELV/AP/LAT RIGHT Radiology Routine Chronic right hip pain 1 Occurrences starting 12/02/2024 until 01/01/2026 [facility] Work Phone: Comment on above: 1 Occurrences starti ng 12/02/2024 until 01/01/2026 XR Pelvis and Hip - right AP and Lateral frog XR HIP GENERAL 3V PELV/AP/LAT RIGHT Radiology Routine Chronic right hip pain 12/28/2024 2:25 PM EST [facility] Work Phone: [facility] Immunizations Immunization Date Immunization Notes Care Provider [facility] 08-24-2022 influenza, seasonal, injectable Sanket Cruz MD Work Phone: [facility] 08-24-2022 influenza virus vaccine, unspecified formulation Sanket Cruz MD Work Phone: [facility] 08-31-2020 influenza virus vaccine, unspecified formulation Sanket Cruz MD Work Phone: [facility] 09-17-2019 influenza virus vaccine, unspecified formulation Sanket Cruz MD Work Phone: [facility] 08-24-2018 influenza virus vaccine, unspecified formulation Sanket Cruz MD Work Phone: [facility] 06-05-2017 tetanus toxoid, redu jeff diphtheria toxoid, and acellular pertussis vaccine, adsorbed Mine Doty MD Work Phone: [facility] 10-12-2008 influenza virus vaccine, unspecified formulation Mine Doty MD Work Phone: [facility] Work Phone: Payers Date Payer Category Payer Self-pay [id number] 2023 Private Health Insurance [id number] 2019 Private Health Insurance AET[employer] A ETNA CHOICE POS II [id number] 2019-Present [phone] [address] [place] [address] POS [id number] 2019 Private Health Insurance [id number] Private Health Insurance AETNA [id number] Unknown ANTHEM [id number] Unknown [id number] Unknown [id number] Unknown [id number] Unknown [id number] Social History Date Type Detail Facility Start: 12-17-2011 End: 09-23-2022 Tobacco smoking status NHIS Never smoked tobacco [facility] Work Phone: Start: 02-14-2022 End: 05-19-2025 Alcohol intake Current drinker of alcohol (finding) [facility] Start: 04-18-2021 End: 10-23-2022 History SDOH Alcohol Frequency 2 [facility] Start: 04-18-2021 End: 10-23-2022 History SDOH Alcohol Std Drinks 1 [facility] Start: 12-12-2016 History SDOH Alcohol Comment Occasionally, not while [facility] Start: 04-18-2021 End: 10-23-2022 History SDOH Social Connections Living 3 [facility] Start: 04-18-2021 End: 10-23-2022 History SDOH Financial 4 [facility] Start: 04-17-2021 Education 15 [facility] Start: 1985 Sex Assigned At Not on file C [facility] Start: 02-04-2022 End: 10-24-2022 Exposure to SARS-CoV-2 (event) Not sure [facility] Start: 12-17-2011 End: 09-23-2022 Tobacco use and exposure Smokeless tobacco non-user [facility] Work Phone: Start: 10-23-2022 History SDOH Social Connections Meetings 98 [facility] Start: 10-03-2022 Tobacco smoking stat us NHIS Unknown if ever smoked [facility] Work Phone: Start: 07-07-2017 None [facility] Start: 1985 Sex Assigned At Female [facility] Work Phone: Start: 10-22-2022 End: 06-01-2023 History of Social function [facility] Start: 10-22-2022 End: 04-24-2023 Social connection and isolation panel [facility] Do you belong to any clubs or organizations such as hindu groups, unions, fraternal or athletic groups, or school groups? No [facility] How often do you att end meetings of the clubs or organizations you belong to? Patient refused [facility] Are you now , , , , never or living with a partner? [facility] How often to you hav e a drink containing alcohol? Monthly or less [facility] How many standard drinks containing alcohol do you have on a typical day? 1 or 2 [facility] How often do you hav e 6 or more drinks on 1 occasion? Never [facility] How hard is it for y ou to pay for the very basics like food, housing, medical care, and heating Not very hard [facility] Do you feel stress - tense, restless, nervous, or anxious, or unable to sleep at night because your mind is troubled all the time - these days [OSQ] To some extent [facility] (I/We) worried barby er (my/our) food would run out before (I/we) got money to buy more. Never true [facility] The food that (I/we) bought just didn't last, and (I/we) didn't have money to get more. Sometimes true [facility] In the past 12 month s, was there a time when you were not able to pay the mortgage or rent on time? Yes [facility] Start: 04-06-2024 Gender identity Identifies as female gender (finding) [facility] Start: 04-06-2024 Sexual orientation Heterosexual (angel vo) [facility] How hard is it for y ou to pay for the very basics like food, housing, medical care, and heating Somewhat hard [facility] Do you feel stress - tense, restless, nervous, or anxious, or unable to sleep at night because your mind is troubled all the time - these days [OSQ] Rather much [facility] Start: 02-08-2025 [facility] (finding[facility]: Highlighted row Not [facility] Medical Equipment Procedure Code Equipment Code Equipment Origin al Text Equipment Identifier Dates Laparoscopic abdominal hysterectomy Collagen haemostatic agent, non-antimicrobial ()[id number] FDA Start: 05-12-2025 Goals Date Patient Goal Desired Activity /State Functional Status Date Assessment Result Facility 05-12-2025 Functional status Ambulates;Bath room Privilege [facility] Work Phone: 06-23-2015 Are you deaf, or do you have serious difficulty hearing No 06/23/2015 8:44 AM EDT Jordyn Rodriguez Ma No [facility] 06-23-2015 Are you blind, or do you have serious difficulty seeing, even when wearing glasses No 06/23/2015 8:44 AM EDT Jordyn Rodriguez Ma No [facility] 06-23-2015 Do you have serious difficulty walking or climbing stairs No 06/23/2015 8:44 AM EDT Jordyn Rodriguez Ma No [facility] 06-23-2015 Do you have difficul ty dressing or bathing No 06/23/2015 8:44 AM EDT Jordyn Rodriguez Ma No [facility] 06-23-2015 Because of a physica l, mental, or emotional condition, do you have difficulty doing errands alone such as visiting a physician's office or shopping No 06/23/2015 8:44 AM EDT Jordyn Rodriguez Ma No [facility] Mental Status Date Assessment Result Facility 05-12-2025 Cognitive function Voice/Name [facility] Work Phone: 06-23-2015 Because of a physica l, mental, or emotional condition, do you have serious difficulty concentrating, remembering, or making decisions No 06/23/2015 8:44 AM EDT Jordyn Rodriguez Ma No [facility] Clinical Notes 05-09-2017 to 06-02-2025 Yaneth Haider MA - 06/02/2025 11:15 AM Tim Welsh MD - 05/19/2025 9:03 AM Renae Pascual LPN - 05/17/2025 8:01 AM Tim Welsh MD - 05/13/2025 1:02 PM EDT Note Date & Type Note Facility 06-02-2025 History of Present illness Narrative View External Procedures - Fluoroscopic guided right hip injection [ID [id number]] documented in this encounter [facility] 05-19-2025 Note HNO ID: [id number] Author: TIM YIP MD Service: ? Author Type: Physician Type: Progress Notes Filed: 05/19/2025 09:21 Note Text: DATE OF SERVICE: 05/19/2025 PROBLEM: Michael Castro presents for postop visit. SURGERY AND DATE: 05/12/25 TLH, LSO PATHOLOGY: pending SUBJECTIVE/INTERVAL HISTORY: Michael Castro reports that she feels well. No fever or chills. Still a little cough, no chest pain. No incisional redness, swelling, or drainage. Patient reports that her appetite is fair. No vaginal bleeding. Denies constipation, urinating well. SENSITIVE EXAM: Sensitive exam not performed. OBJECTIVE: ABDOMEN: Abdomen soft, non-tender, no hepatosplenomegaly. Incisions healing ewll PE ASSESSMENT: postop check PLAN: 1. Discussed results of pathology and implications with patient. 2. Postop restrictions reviewed. Tim Yip MD [facility] 05-19-2025 History of Present illness Narrative DATE OF SERVICE: 05/19/2025 PROBLEM: Michael Castro presents for postop visit. SURGERY & DATE: 05/12/25 TLH, LSO PATHOLOGY: pending SUBJECTIVE/INTERVAL HISTORY: Michael Castro reports that she feels well. No fever or chills. Still a little cough, no chest pain. No incisional redness, swelling, or drainage. Patient reports that her appetite is fair. No vaginal bleeding. Denies constipation, urinating well. SENSITIVE EXAM: Sensitive exam not performed. OBJECTIVE: ABDOMEN: Abdomen soft, non-tender, no hepatosplenomegaly. Incisions healing ewll PE ASSESSMENT: postop check PLAN: 1. Discussed results of pathology and implications with patient. 2. Postop restrictions reviewed. Tim iYp MD documented in this encounter [facility] 05-17-2025 Note HNO ID: [id number] Author: RENAE EVANS LPN Service: ? Author Type: LICENSED NURSE Type: Progress Notes Filed: 05/17/2025 08:01 Note Text: Scan on 05/12/2025 9:33 AM by ProviderNora PA-C: Orthopedics [facility] 05-17-2025 History of Present illness Narrative Scan on 05/12/2025 9:33 AM by ProviderNora PA-C: Orthopedics documented in this encounter [facility] 05-13-2025 Note HNO ID: [id number] Author: TIM YIP MD Service: ? Author Type: Physician Type: Progress Notes Filed: 05/13/2025 13:05 Note Text: Patient underwent TLH, LSO, right salpingectomy and cystoscopy for fibroids, dyspareunia and menorrhagia and h/o fe def. anemia. Uterus was suspended from anterior abd. wall due to previous c/s, dense adhesions. Uterus > 250 gm. Pathology pending. D/jeff home same day. Tim Yip MD [facility] 05-13-2025 History of Present illness Narrative Patient underwent TLH, LSO, right salpingectomy and cystoscopy for fibroids, dyspareunia and menorrhagia and h/o fe def. anemia. Uterus was suspended from anterior abd. wall due to previous c/s, dense adhesions. Uterus > 250 gm. Pathology pending. D/jeff home same day. Tim Yip MD documented in this encounter [facility] 05-12-[address] [facility] 05-12-[address] [facility] 05-12-2025 Consult note Note Date/Time May 12, 2025 12:32pm [facility] Medical Records Department [address] [place] [address] Anesthesia Postop Eval I 05/12/25 1006 MR#: [id number] Acct: [id number] Name: MICHAEL CASTRO Rep #:[id number] : 1985 40 From: Hyacinth METZGER PCP: Dr. Sanket Cruz MD Status:REG SDC Y Race: AA Location: [place] [address] Anesthesia: Postop Eval I Current Vital Signs Temperature: 97.1 F Pulse Rate: 77 Blood Pressure: 114/70 Respiratory Rate: 14 Pulse Ox: 96 Oxygen Delivery Method: Room Air Assessment Airway patent: Yes Spontaneous unlabored respirations: Yes Mental status: Awake and Calm nausea: No Vomiting: No Anesthesia Complication: No Fluid Hydration Crystalloid volume administer (ml): 1,000 Total IV fluid infused: 1,000 Progress Note Anesthesia document: Postop Eval 1 completed: Yes 05/12/25 1006 <Electronically signed by Hyacinth Duron CRNA> Date _ Hyacinth Duron CRNA Cosigner Signature: Date CC: ~ Signed [facility] Work Phone: 1(434) 788-502006-19-2025 Discharge summary Author Tim Yip [facility] Note Date/Time May 12, 2025 9:[address] [facility] Medical Records Department [address] [place] [address] Instructions for Home/Discharge Instructions 05/12/25 0931 MR#: [id number] Acct: [id number] Name: MICHAEL CASTRO Rep #:[id number] : 1985 40 From: Tim Yip MD PCP: Dr. Sanket Cruz MD Status:REG SDC Discharge Instructions Diet Discharge Diet: Light diet - advance as tolerated DC O2, CPAP, BIPAP needs Home O2 Discharge instructions: No Dressing / Incision Discharge Activity: May Drive (in 5-7 days when no longer taking narcotic pain medication) May resume sexual activity in: 6-8 weeks and - (Nothing in your vagina for 6 weeks. No vaginal or anal intercourse for 6-8 weeks) Dressing / Incision Call your doctor if your incision/area has: Continuous Slow Oozing, Increased Pain/ Swelling and Foul Smelling Discharge Call your doctor if you observe: Fever of 101 or Higher and Using more than 1 pad per hour Cleanse incision/area with: Soap & Water and - (Your incisions have skin glue, it can get wet, leave the glue on until it falls off. ) Follow Up Care Please Follow Up With: Tim Yip MD When: With my office in 1-2 and 6 weeks or as needed. [phone] call or senda [employer] message for questions. Test Results: Test results from this visit will be discussed in further detail at your follow- up appointment, if applicable. Discharge Plan Admission Primary Reason for Your Visit: Total laparoscopic hysterectomy with left oophorectomy Attending Provider: Tim Yip Primary Care Provider: Sanket Cruz Instructions Print Language: Danish Discharge Orders/Prescriptions Prescriptions: New ibuprofen 600 mg tablet 600 mg PO Q6H PRN (Reason: Pain) 30 Days Qty: 60 1RF oxycodone 5 mg tablet 5 mg PO Q6H PRN PRN (Reason: severe pain) 7 Days Qty: 20 0RF docusate sodium [Colace] 100 mg capsule 100 mg PO BID PRN (Reason: constipation) 30 Days Qty: 60 0RF Rx Instructions: to keep stools soft Continued meclizine 25 mg tablet 25 mg PO TID PRN (Reason: dizziness) Qty: 30 0RF lwhtpydjut-dudwzrfbgqlwe-lytp 1 TABLET tablet 1 tab PO Q6H PRN (Reason: Headache) Qty: 40 0RF Referrals / Follow Up: Care Physician,No Primary [Non-Staff] - Disposition Disposition (needs filled in before D/C Order can be placed): Home, Self Care 05/12/25 0932<Electronically signed by Tim Yip MD>Tim Yip MD CC: Dr. Sanket Cruz MD ~ Signed [facility] Work Phone: 1(972) 506-535806-19-2025 Procedure note [facility] Medical Records Department [address] [place] [address] Operative Report 05/12/25 0932 MR#: [id number] Acct: [id number] Name: MICHAEL CASTRO Rep #:[id number] : 1985 40 From: Tim Yip MD PCP: Dr. Sanket Cruz MD Status:[facility] Location: [place] [address] Problems Associated Problem List Diagnoses (1) Submucous uterine fibroid: (2) Dyspareunia: (3) Menorrhagia: (4) Fe deficiency anemia: Operative Report (Standard) Operative Information Date of Procedure: 05/12/25 Pre-Operative Diagnosis: fibroid, menorrhagia, dyspareunia, fe def. anemia of chronic blood loss Post-Operative Diagnosis: same Surgery/Procedure Performed: TLH, LSO, right salpingectomy and cystoscopy ux lead: Yes [employer] Teacher: Isabel De Leon MD, PGY4 Tasks completed by hearing and speech assistant: Opening, Closing, Dissecting tissue, Insert Trochanter, Hemostasis: Electrocautery, Trocar and Retracting Additional account management assistant?: Yes Additional Core Manager #2: Isabel Beach Tasks completed by account management assistant #2: Closing, Altering tissue and Retracting Additional account management assistant?: No Type of Anesthesia: General RN Documented Start/Stop Times: Operation Date: 05/12/25 07:30 Case Time Into Pre-Op 05/12/25 05:47 Out of Pre-Op 05/12/25 07:26 Anesthesia Start 05/12/25 07:30 Into Room 05/12/25 07:30 Procedure Start 05/12/25 07:59 Procedure Start Time: 07:59 Procedure Stop Time: 09:41 Select all DRAINS/GRAFTS/IMPLANTS that apply: None Estimated Blood Loss: 30 Fluids Replaced: 1000 cc Specimen collected: Yes Description of specimen(s) removed: uterus, cervix, bilateral fallopian tubes, left ovary Description of surgery: The patient was taken to the operating room where she was prepped and draped in the dorsal lithotomy position. Her arms were tucked to the side and padded and her legs were placed in the yellowfin stirrups. Care was taken to ensure that she was placed in a neurologically safe and neutral position. A weighted speculum was placed in the vagina and the anterior lip of the cervix was graspedwith a single-tooth tenaculum. The cervix sounded to 10 centimeters. 2-0 Vicryl sutures were secured to the cervix at 3 and 9:00. The Uterine delineatorwas placed into the cervix and the balloon inflated. The stay sutures were placed through the cup and secured down to the cervix. Once the manipulator wassecured to the cervix the Allison catheter was placed to straight drain. Attention was turned to the abdominal portion of the case. Before skin incisions were made they were infiltrated with 0.5% Marcaine solution for local anesthetic. A 5 mm intraumbilical incision was made and while tenting the anterior abdominal wall up with towel clamps a 5 mm blade less trocar and s leevewere advanced directly into the peritoneal cavity using the visiport. Peritoneal placement wasconfirmed with the laparoscope the pneumoperitoneum wascreated, and the underlying abdominal contents were intact. The patient was placed in Trendelenburg and the above findings were noted. Right andleft lateral 5 mm trochars were placed under direct visualization without difficulty. The dense adhesions of the anterior abdominal wall were taken down with the LigaSure device. The entire anterior midline of the uterus was adhered. The adhesions of the anterior abdominal wall to theuterus were then taken down withthe LigaSure device. The antimesenteric portion of the tube was clamped sealed and transected serially on the right sidewith the LigaSure device. The left ureter was identified and then the left infundibulopelvic ligament was clamped, sealed and transected. The round ligaments were clamped sealed and transected and a w indowwas made in the peritoneum. The utero-ovarian ligaments were then clamped sealed and transected with the LigaSure device and the pedicles were hemostatic The bladder flap and any remaining anterior abdominal wall adhesions were dissected down with the LigaSure device and blunt dissection and the uterine arteries were then skeletonized. The uterine arteries were clamped sealed and transected on both sides with the LigaSure device. Then along the cardinal ligament uterine arteries adjacent to the cervix were clamped sealed and transected with the LigaSure device to move them away from the vaginal cuff angle. At this point the pedicles were all examined and found to be hemostatic. The bladder flap was rechecked and found to be adequately down. The monopolar tip of the LigaSure device was then used to enter the anterior vagina. The vaginal manipulator cup was noted in the vaginal colpotomy incision was made circumferentially around the cup. When the 3 and 9:00 positions of the cervicovaginal junction were reached these were clamped sealed and transected with the LigaSure device to secure any small remaining vessels. At this point the pedicles were hemostatic from above and attention was turned to the vaginal portion of the case again. The uterus was brought intact out through the vaginal colpotomy incision alongwith the tubes There is some bleeding from the left vaginal cuff angle and this was grasped with an Allis clamp. The posterior vaginal cuff was reapproximated to the periotoneum with 2-0 vicryl suture in a running standard fashion. Vaginal anglesutures were placed on both sides with 0 Vicryl sutures and care was taken to ensure that the uterosacral ligament was secured into this stitch. The remainder the vaginawas then closed horizontally with interrupted 0 Vicryl sutures. The cuff was hemostatic vaginally. The Allison catheter was removed and a cystoscopy was performed. The bladder appeared normal and was intact. Both ureteral orifices were noted and both ureteral jets were seen. The cystoscope was removed and the Allison catheter was placed back to straight drain. A sponge stick was placed in the vaginato help place traction against the vaginal cuff and the pneumoperitoneum was re-created. The suction liability claims representative was used to remove any blood and clots from the peritonealcavity. The pedicles were reexamined and found to be hemostatic. The vaginal cuff was hemostatic. Some Hemablast was placed over the cuff and the pedicles and no active bleeding was noted through the Hemablas. The rightand left lateral ports were taken out and the sites were hemostatic. The pneumoperitoneum was released and even under low pressure there was no bleeding of any of the pedicles are vaginal cuff. The umbilical port was removed. The umbilical skin incisions were closed with Monocryl suture and skin glue by the assistants. The vaginal instruments were removed by me and a vaginal sweep was completed by me. The surgery was performed by me with assistance and I was present for the entirecase. All sponge lap and needle counts were correct and the patient was transferred to the recovery room in stable condition. Surgical Findings: boggy uterus with small subserosal fibroids, adhesions of uterus to anterior abdominal wall, normalbilateral ovaries, tubes normal with evidence of previouspartial salpingectomy Complications Complications: No Admit VTE Documentation VTE Present on Admission: No VTE Mechan Device Prophylaxis: SCD's VTE Pharm Prophylaxis ordered?: No Reason prophylaxis not ordered: Treatment Not Indicated 05/12/25940 Cosigner Signature (if applicable): CC: Dr. Sanket Cruz MD; Dr. Tim Yip MD~ Signed [facility]06-19-2025 Discharge summary [facility] Medical Records Department [address] [place] [address] Instructions for Home/Discharge Instructions 05/12/25930 MR#: [id number] Acct: [id number] Name: MICHAEL CASTRO Rep #:[id number] : 1985 40 From: Tim Yip MD PCP: Dr. Sanket Cruz MD Status:REG [facility] Discharge Instructions Diet Discharge Diet: Light diet - advance as tolerated DC O2, CPAP, BIPAP needs Home O2 Discharge instructions: No Dressing / Incision Discharge Activity: May Drive (in 5-7 days when no longer taking narcotic pain medication) May resume sexual activity in: 6-8 weeks and - (Nothing in your vagina for 6 weeks. No vaginal or anal intercourse for 6-8 weeks) Dressing / Incision Call your doctor if your incision/area has: Continuous Slow Oozing, Increased Pain/ Swelling and Foul Smelling Discharge Call your doctor if you observe: Fever of 101 or Higher and Using more than 1 pad per hour Cleanse incision/area with: Soap & Water and - (Your incisions have skin glue, it can get wet, leave the glue on until it falls off. ) Follow Up Care Please Follow Up With: Tim Yip MD When: With my office in 1-2 and 6 weeks or as needed. [phone] call or [facility] [facility] message for questions. Test Results: Test results from this visit will be discussed in further detail at your follow- up appointment, if applicable. Discharge Plan Admission Primary Reason for Your Visit: Total laparoscopic hysterectomy with left oophorectomy Attending Provider: Tim Yip Primary Care Provider: Sanket Cruz Instructions Print Language: Danish Discharge Orders/Prescriptions Prescriptions: New ibuprofen 600 mg tablet 600 mg PO Q6H PRN (Reason: Pain) 30 Days Qty: 60 1RF oxycodone 5 mg tablet 5 mg PO Q6H PRN PRN (Reason: severe pain) 7 Days Qty: 20 0RF docusate sodium [Colace] 100 mg capsule 100 mg PO BID PRN (Reason: constipation) 30 Days Qty: 60 0RF Rx Instructions: to keep stools soft Continued meclizine 25 mg tablet 25 mg PO TID PRN (Reason: dizziness) Qty: 30 0RF raeenptjoe-kloovarodannj-qfew 1 TABLET tablet 1 tab PO Q6H PRN (Reason: Headache) Qty: 40 0RF Referrals / Follow Up: Care Physician,No Primary [Non-Staff] - Disposition Disposition (needs filled in before D/C Order can be placed): Home, Self Care 05/12/25 0932Rephuc Yip MD CC: Dr. Sanket Cruz MD ~ Signed [facility]06-19-2025 History and physical note Author Tim Yip [facility] Note Date/Time May 12, 2025 7:[address] [facility] Medical Records Department [address] [place] [address] History & Physical Exam 04/26/25 1254 MR#: [id number] Acct: [id number] Name: MICHAEL CASTRO Rep #:[id number] : 1985 40 From: Tim Yip MD PCP: Dr. Sanket Cruz MD Status:[facility] Location: [place] [address] History and Physical Date of Admission: 05/12/25 HPI: The patient is a 39 year old female presenting for pre-operative visit. She is scheduled for TLH, bilateral salpingectomy with left oophorectomy, for menorrhagia, fe def anemia, subserous fibroids, dyspareunia on 05/12/25. Procedure discussed along with risks, benefits and complications. Other alternatives discussed for management. Consent form signed? Yes. ? ? PAST MEDICAL HISTORY PAST MEDICAL HISTORYDiagnosisDate?Acute pain of both hips03/01/2022?Cymbalta hashelped. ?Anxiety with xpxlchixpe46/02/2021?Arthritis of right hip12/30/2024?X-ray 12/2024: mild??Elevated hemoglobin A1c07/26/2021?GERD without qgbalxdyens77/02/2021?Hip pain07/11/2014?History of 2019 novel coronavirus disease (COVID-19)11/01/2020?10/27/2020?Inflammatory polyarthropathy (HCC)02/10/2014?Sees Dr. Sandoval ?Iron deficiency aganuw0910/24/2022?Low iron01/23/2021?Muscle spasm05/19/2013?MVP (mitral valve prolapse)02/10/2014?On 2D echo 01/2014 ?Pain in joint, ankle and foot02/19/2012?Pseudotumor cerebri??Right hip pain06/25/2021?Saw Ortho (Dr. Brownlee) Told bone on bone.?Routine gynecological examination??Dr Doty?Valvular heart uvwayyh7602/10/2014?2Decho 01/2014: 1+ MVI and TI ?Vitamin D qgognqhvaf50/20/2014 ? ? PAST SURGICAL HISTORY PAST SURGICAL HISTORYProcedureLateralityDate?2D ECHO (EXEP)??EF=60%, mild MVP, +1 MVI and TI? DELIVERY ONLY???, low cervical? DELIVERY ONLY?07/07/2017?LIGATE FALLOPIAN TUBE?2017?at csection?PAST SURGICAL HISTORY OF?08/2000?TENDON REPAIR RIGHT WRIST?STRESS ECHO?02/13/2021?normal?TONSILLECTOMY PRIMARY/SECONDARY <AGE 12?02/2014?Tonsillectomy ? ? ? CURRENT MEDICATIONS Current Outpatient MedicationsMedicationSigDispenseRefill?norethindrone (AYGESTIN) 5 mg tabletTAKE 1 TABLET BY MOUTH EVERY DAY90 tablet3?zonisamide (ZONEGRAN) 50 mg capsuleTake 1 capsule by mouth once daily.90 capsule0?acetaminophen (TYLENOL ARTHRITIS ORAL)Take 2 tablets by mouth two timesa day as needed.???meloxicam (MOBIC) 15 mg tabletTake 1 tablet by mouth once daily.30 tablet6?No current facility-administered medications for this visit. ? ? ALLERGIES: Diamox [Acetazolamide] ? PERSONAL HISTORY: SOCIAL HISTORY Social History?Tobacco Use?Smoking status:Never?Smokeless tobacco:NeverVaping Use?Vaping status:Never UsedSubstance Use Topics?Alcohol use:Yes??Comment: Occasionally, not while ?Drug use:No ? FAMILY HISTORY: FAMILY HISTORY FAMILY HISTORY ProblemRelationAge of Onset?SeizuresMother?? tonic-clonic, quiescent off medication?No Known ProblemsFather??No Known ProblemsSister??No Known ProblemsSister??No Known ProblemsSister??No Known ProblemsBrother??No Known ProblemsBrother??No Known ProblemsBrother??COPDMaternal Grandmother??DiabetesMaternal Grandfather??HypertensionMaternal Grandfather??HeartMaternal Grandfather?? had a difibulator?HypertensionPaternal Grandmother??other (Other)Paternal Grandmother?? No breast/chauffeur cancer?AneurysmPaternal Grandfather??other (cask gene mutation)Daughter??Coronary Artery DiseaseNo Family History? ? ? REVIEW OF SYMPTOMS: GENERAL: denies fevers or chills ENDOCRINOLOGY: has not been on steroids Cardiology : denies palpitations or chest pain Respiratory: denies SOB or cough Hematology: denies history of prolonged bleeding or easy bruising or VTE Allergy: Denies history of personal or family history of allergy to anesthesia ? PHYSICAL EXAMINATION: ? VITALS: Blood pressure 134/90, height 157.5 cm (5' 2), weight 104.3 kg (230 lb), last menstrual period 02/10/2025. ? GENERAL: The patient is well nourished, well hydrated in no acute distress. , The patient is oriented to time, place, and person. NECK: Supple. No lynphadenopathy, normal thyroid, no thyromegaly. LUNGS: Clear to auscultation bilaterally. no wheezes, rhonchi or rales HEART: Regular rate and rhythm, Normal heart sounds, and No murmurs or gallops ? Pelvic US: 01/21/25 Uterus Uterus: Visualized Uterus [...] D3 19 mm Lt ovary Vol 9.6 cm? Cul de Sac Visualized. no free fluid visualized ? ? IMPRESSION: menorrhagia, dyspareunia, fe def.anemia, subserosal fibroids ? PLAN: The risks/benefits/alternatives and personal involved for the planned TLH, LSO, right salpingectomy were reviewed with the patient. Her questions were answered to her satisfaction and she desires to proceed. Consent was signed. I reviewed with her postop instructions and expectations. ? ? I have reviewed and updated past medical and surgical history, medications and allergies Assessment & Plan Assessment/Plan (1) Menorrhagia: QUALIFIERS: Menorrhagia type: with regular cycle Qualified Code(s): N92.0 - Excessive and frequent menstruation with regular cycle (2) Dyspareunia: (3) Submucous uterine fibroid: (4) Fe deficiency anemia: QUALIFIERS: Iron deficiency anemia type: chronic blood loss Qualified Code(s): D50.0 - Iron deficiency anemia secondary to blood loss (chronic) 04/26/25 1257 <Electronically signed by Tim Yip MD> Cosigner Signature (if applicable): CC: Dr. Sanket Cruz MD; Dr. Tim Yip MD~ Signed ADDENDUM by Dr. Tim Yip MD on 05/12/25 at 0728 Addendum UPDATE- I have seen the patient and performed any clinically relevant updates to the history and physical exam. 05/12/25 0728<Electronically signed by Tim Yip MD> Cosigner Signature (if applicable): cc: Dr. Sanket Cruz MD; Dr. Tim Yip MD ~* Signed [facility] Work Phone: 1(314) 497-169106-19-2025 Radiology Diagnostic study note [facility] Imaging Services [address] [place] [address] Inj/Asp Jarett Jt Should/Hip/Knee MR#: [id number] Acct: [id number] Name: MICHAEL CASTRO Rep #: [id number] : 1985 F 40 From: Luis Carlos Hemphill MD PCP: Dr. Sanket Cruz MD Status: REG CLI Study:Inj/Asp Jarett Jt Should/Hip/Knee Date of Exam: 05/10/25 Exam# [id number] Ordering Dr: Montez Brownlee MD PROCEDURE: INJ/ASP JARETT JT SHOULD/HIP/KNEE 05/10/2025 REASON FOR EXAM: UNILATERAL PRIMARY OSTEOARTHRITIS, RIGHT HIP TECHNIQUE: INJ/ASP JARETT JT SHOULD/HIP/KNEE. The procedure as well as the benefits and possible complications including infection and bleeding were explained to the patient. Informed consent was obtained. The overlying skin was prepped and draped in the usual sterile fashion. Following local anesthetic application, a 22 gauge spinal needle was placed into the hip joint. 2 cc of Isovue-300 was injected for confirmation. Following this, injection of medication was performed. The patient tolerated the procedure well. 1 minute and 59 seconds of fluoroscopy. 76.3 mGy. 3 spot images were submitted. COMPARISON: None FINDINGS: Successful right shoulder injection. RAD/Inj/Asp Jarett Jt Should/Hip/Knee IMPRESSION: Patient tolerated the procedure well. Reading Location: [place] [address] CC: Dr. Erick Brownlee MD; Dr. Sanket Cruz MD ~ Podiatrist Assistant: Signed [facility]06-19-2025 Consult note Author Kamron Wing [facility] Note Date/Time May 12, 2025 6:45 am [facility] Medical Records Department [address] [place] [address] Pre-Anesthesia Evaluation 05/12/25 0641 MR#: [id number] Acct: [id number] Name: MICHAEL CASTRO Rep #:[id number] : 1985 40 From: Kamron Wing MD PCP: Dr. Sanket Cruz MD Status:[facility] Race: AA Location: [place] [address] ASA Classification* ASA Classification ASA Classification: 3 (BMI > 40. Hx PONV, migraines, anemia ) Assessment & Plan Anesthesia* Anesthesia Assessment Anesthesia Assessment: Discussed sedation and/or anesthesia options, risks, benefits, and alternatives with patient/parents/legal guardian/POA. Questions invited. The patient/parents/legal guardian/POA seems to understand and agrees to proceedwith anesthesia plan. Reviewed the physical assessment, medical history, allergy history and patient home medications list prior to surgery/procedure/anesthetic and documented any changes. Performed airway and anesthesia risk assessments. Anesthesia Type Anesthesia Type: General (TIVA for PONV ) History Source History Obtained from:: Patient and Chart Anesthesia Focused Assessment* Temperature: 98.1 F Pulse Rate: 76 Blood Pressure: 143/83 Respiratory Rate: 16 Pulse Ox: 99 Oxygen Delivery Method: Room Air Airway Assessment Mouth opens: >3 cm Mallampati Score: III Teeth Condition: Intact Neck Range of motion (ROM): Full ROM Labs Anesthesia Preop lab: CBC WBC 9.0 K/mm3 (4.4-11.0) 05/05/25 08:22 05/05/25 RBC 4.67 M/mm3 (4.2-5.4) 05/05/25 08:22 05/05/25 Hgb 13.2 g/dL (12.0-15.0) 05/05/25 08:22 05/05/25 Hct 40.5 % (37-47) 05/05/25 08:22 05/05/25 Plt Count 395 K/mm3 (150-450) 05/05/25 08:22 05/05/25 CHEMISTRY Potassium 3.8 mmol/L (3.5-5.1) 02/01/14 09:40 02/01/14 Sodium 137 mmol/L (136-145) 02/01/14 09:40 02/01/14 Magnesium 2.2 mg/dL (1.5-2.2) 05/05/25 08:22 05/05/25 BUN 11 mg/dL (7-18) 02/01/14 09:40 02/01/14 Creatinine 0.71 mg/dL (0.55-1.02) 07/07/17 00:35 07/07/17 Glucose 85 mg/dL (74-106) 10/19/18 07:55 10/19/18 COAG PT 13.4 SECONDS (11.7-14.9) 05/05/25 08:22 HCG, Quant 858 mIU/mL (<9 non-preg) H 10/24/14 09:20 1212/07 Urine Test Negative Negative 05/12/25 05:58 05/12/25 Pre-Assessment Diagnosis/Proposed Procedure Planned Operative Procedure(s): ERAS, Hysterectomy,TLH, bilateral salpingectomy,left oophorectomy, cystoscopy Anesthesia History Anesthesia History - special education tutor: Anesthesia History - special education tutor Hx Hospitalization No 04/29/25 08:25 Any Problems With Anesthesia Yes: PONV 04/29/25 08:25 Cholinesterase deficiency No 04/29/25 08:25 You/Your Family Experience No 04/29/25 08:25 fever (hyperthermia) with Relationship Recent Exposure to Contagious No 05/12/25 06:06 Disease Does patient have nerve No 04/29/25 08:25 stimulator Patient instructed to have device shut off --Does patient have Pacemaker No 05/12/25 06:06 or ICD? When Was Last Pacemaker Check QUESTION #4 FULL TEXT: You/Your Family Experience fever (hyperthermia) with Anesthesia Last Oral Intake Last Oral intake: Last Oral Intake NPO since 20:00 05/12/25 06:06 Meds taken in AM with sips of No 05/12/25 06:06 water? Meds patient instructed to take am of surgery PONV PONV - special education tutor: PONV - special education tutor Female Yes 04/29/25 08:25 HX of Motion Sickness No 04/29/25 08:25 HX of N/V After Surgery No 04/29/25 08:25 Non-Smoker Yes 04/29/25 08:25 Duration of Surgery greater Yes 04/29/25 08:25 than 60 minutes Number of Risk Factors 3 04/29/25 08:25 PONV Score Moderate Risk 04/29/25 08:25 Height & Weight Height & Weight: Anesthesia: Height & Weight Height 5 ft 1.5 in 05/12/25 06:06 Weight: 104.3 kg 05/12/25 06:06 Body Mass Index (BMI) 42.7 05/12/25 06:06 Respiratory Assessment Respiratory Assessment - special education tutor: Respiratory Tract Infection Hx - special education tutor Hx Respiratory Tract Infection No 04/29/25 08:25 STOP Sleep Apnea STOP Sleep Apnea - special education tutor: STOP Sleep Apnea - special education tutor Hx Hypertension No 04/29/25 08:25 Hx Sleep [...] Tobacco Use History Tobacco Use History - special education tutor: Tobacco Use History - special education tutor Tobacco Use Smoking Status Never smoker 04/29/25 08:25 Hx Tobacco Use No 04/29/25 08:25 Years Smoking Packs Smoked per Day Smoking Cessation Date was within the last 15 years Hx Smoking Cessation Date Hx Smoking Cessation Counseling Hematologic Medial History Hematologic Hx - special education tutor: Hematologic Medical Hx - brassiere cup mold cutter Hx of Blood Transfusion No 04/29/25 08:25 Hx of Transfusion in last 3 No 04/29/25 08:25 Months Date of Last Transfusion (if within last 3 months) Ever experience any problems No 04/29/25 08:25 with transfusion(s)? Specify any problems Hx of Preganancy in last 3 No 04/29/25 08:25 Months Nurse Filling Out Transfusion MGRIFFITH 04/29/25 08:25 & Questions: Date: 04/29/25 04/29/25 08:25 Time: 08:27 04/29/25 08:25 Patient unable to answer at this time (ie. confused, unrespo /Reproduction History /Reproductive History - special education tutor: /Reproductive Hx- special education tutor Hx Now No 04/29/25 08:25 Gestational Age (in weeks): EDC: Hx Hx Para Hx Section SAB No 04/29/25 08:25 Active Medications Active Medications: Current Medications Generic Name Dose Route Start Last Admin Trade Name Freq PRN Reason Stop Dose Admin Acetaminophen 1,000 mg 05/12/25 07:30 05/12/25 06:13 Acetaminophen 500 Mg Tablet PO 05/12/25 07:31 1,000 mg PREOP ONE Administration Celecoxib 400 mg 05/12/25 07:30 05/12/25 06:13 Celecoxib 200 Mg Capsule PO 05/12/25 07:31 400 mg PREOP ONE Administration Dexamethasone Sodium Phosphate 8 mg 05/12/25 07:30 Dexamethasone 4 Mg/Ml Vial IV 05/12/25 07:31 INTRAOP ONE Enoxaparin Sodium 40 mg 05/12/25 07:30 05/12/25 06:11 Enoxaparin 40 Mg/0.4 Ml Syringe SC 05/12/25 07:31 40 mg PREOP ONE Administration Gabapentin 600 mg 05/12/25 07:30 Gabapentin 600 Mg Tablet PO 05/12/25 07:31 PREOP ONE Lactated Ringer's 1,000 mls @ 40 mls/hr 05/12/25 07:30 05/12/25 06:14 IV 40 mls/hr .Q25H KEVIN Administration Cefazolin Sodium 2 gm/ Sodium 110 mls @ 150 mls/hr 05/12/25 07:30 Chloride IV 05/12/25 08:13 INTRAOP ONE Metronidazole 500 mg in 100 mls @ 100 mls/hr 05/12/25 07:30 05/12/25 06:14 Flagyl IV 05/12/25 08:29 100 mls/hr INTRAOP ONE Administration Magnesium Sulfate 1 gm/ 102 mls @ 408 mls/hr 05/12/25 07:30 05/12/25 06:15 Dextrose IV 05/12/25 07:44 408 mls/hr INTRAOP ONE Administration Lactated Ringer's 1,000 mls @ 15 mls/hr 05/12/25 06:00 IV .Q48H KEVIN Insulin Human Lispro 0 unit 05/12/25 07:30 Insulin Lispro 100 Unit/Ml Insuln.Pen SC 05/12/25 13:30 Q4H PRN PRN BG >/= 180, SEE PROTOCOL Protocol Ondansetron HCl 4 mg 05/12/25 07:30 Ondansetron 4 Mg/2 Ml Vial IV 05/12/25 07:31 INTRAOP ONE Phenazopyridine HCl 190 mg 06/19/25 07:30 05/12/25 06:12 Phenazopyridine 95 Mg Tablet PO 05/12/25 07:31 190 mg PREOP ONE Administration Scopolamine HBr 1 patch 05/12/25 07:30 05/12/25 06:12 Scopolamine 1mg/72hr Patch TD 05/12/25 07:31 1 mg PREOP ONE Administration PFSH Medical History (Updated 05/10/25 @ 14:03 by Nati Knapp NP-C) Wears glasses Alcohol use Rash Low iron Migraine headache Non-smoker History of echocardiogram PONV (postoperative nausea and vomiting) BPPV (benign paroxysmal positional vertigo) Home Medications ?Medication ?Instructions ?Recorded ?Last Taken ?Type mhyxczgydn-neodscfyaxbea-cofhpiag 1 tab PO Q6H PRN Hea dache #40 tabs 07/10/17 Unknown Rx 50 mg-325 mg-40 mg tablet meclizine 25 mg tablet 25 mg PO TID PRN dizziness # 30 tabs 10/03/22 Unknown Rx Allergy/AdvReac Type Severity Reaction Status Date / Time No Known Allergies Allergy Verified 04/29/25 08:22 Surgical History (Updated 04/29/25 @ 08:25 by Love Olivo) History of tonsillectomy and adenoidectomy History of Social History (Updated 07/31/18 @ 11:34 by BANG Perez) Smoking Status: Never smoker Review of Systems (Anesthesia) ROS Narrative System reviewed and no additional complaints, except as documented. Physical Exam Const alert and oriented x3 Nutritional Appearance: obese Resp normal respiratory effort, normal air movement and clear to auscultation bilaterally Cardio regular rate, regular rhythm, no murmurs and diaphoretic 05/12/25 0645 <Electronically signed by Kamron Wing MD> Date _ Kamron Wing MD Cosigner Signature: Date CC: ~ Signed [facility] Work Phone: 1(235) 286-790306-19-2025 History and physical note [facility] Medical Records Department [address] [place] [address] History & Physical Exam 04/26/25 1254 MR#: [id number] Acct: [id number] Name: MICHAEL CASTRO Rep #:[id number] : 1985 40 From: Tim Yip MD PCP: Dr. Sanket Cruz MD Status:[facility] Location: [place] [address] History and Physical Date of Admission: 05/12/25 HPI: The patient is a 39 year old female presenting for pre-operative visit. She is scheduled for TLH, bilateral salpingectomy with left oophorectomy, for menorrhagia, fe def anemia, subserous fibroids, dyspareunia on 05/12/25. Procedure discussed along with risks, benefits and complications. Other alternatives discussed for management. Consent form signed? Yes. ? ? PAST MEDICAL HISTORY PAST MEDICAL HISTORYDiagnosisDate?Acute pain of both hips03/01/2022?Cymbalta hashelped. 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 Sandoval?Iron deficiency nbmrbh7010/24/2022?Low iron01/23/2021?Muscle spasm05/19/2013?MVP (mitral valve prolapse)02/10/2014?On 2D echo 01/2014 ?Pain in joint, ankle and foot02/19/2012?Pseudotumor cerebri??Righthip pain06/25/2021?Saw Ortho (Dr. Brownlee) Told bone on bone.?Routine gynecological examination??Dr Doty?Valvular heart yzpvrca7902/10/2014?2Decho 01/2014: 1+ MVI and TI ?Vitamin D yezzfzeilz68/20/2014 ? ? PAST SURGICAL HISTORY PAST SURGICAL HISTORYProcedureLateralityDate?2D ECHO (EXEP)??EF=60%, mild MVP, +1 MVI and TI? DELIVERY ONLY???, low cervical? DELIVERY ONLY?07/07/2017?LIGATE FALLOPIAN TUBE?2017?at csection?PAST SURGICAL HISTORY OF?08/2000?TENDON REPAIR RIGHT WRIST?STRESS ECHO?02/13/2021?normal?TONSILLECTOMY PRIMARY/SECONDARY ? ? ? CURRENT MEDICATIONS Current Outpatient MedicationsMedicationSigDispenseRefill?norethindrone (AYGESTIN) 5 mg tabletTAKE 1 TABLET BY MOUTH EVERY DAY90 tablet3?zonisamide (ZONEGRAN) 50 mg capsuleTake 1 capsule by mouth once daily.90 capsule0?acetaminophen (TYLENOL ARTHRITIS ORAL)Take 2 tablets by mouth two timesa day as needed.???meloxicam (MOBIC) 15 mg tabletTake 1 tablet by mouth once daily.30 tablet6?No current facility-administered medications for this visit. ? ? ALLERGIES: Diamox [Acetazolamide] ? PERSONAL HISTORY: SOCIAL HISTORY Social History?Tobacco Use?Smoking status:Never?Smokeless tobacco:NeverVaping Use?Vaping status:Never UsedSubstance Use Topics?Alcohol use:Yes??Comment: Occasionally, not while ?Drug use:No ? FAMILY HISTORY: FAMILY HISTORY FAMILY HISTORY ProblemRelationAge of Onset?SeizuresMother?? tonic-clonic, quiescent off medication?No Known ProblemsFather??No Known ProblemsSister??No Known ProblemsSister??No Known ProblemsSister??No Known ProblemsBrother??No Known ProblemsBrother??No Known ProblemsBrother??COPDMaternal Grandmothe r??DiabetesMaternal Grandfather??HypertensionMaternal Grandfather??HeartMaternal Grandfather?? had a difibulator?HypertensionPaternal Grandmother??other (Other)Paternal Grandmother?? No breast/chauffeur cancer?AneurysmPaternal Grandfather??other (cask gene mutation)Daughter??Coronary Artery DiseaseNo Fami ly History? ? ? REVIEW OF SYMPTOMS: GENERAL: denies fevers or chills ENDOCRINOLOGY: has not been on steroids Cardiology : denies palpitations or chest pain Respiratory: denies SOB or cough Hematology: denies history of prolonged bleeding or easy bruising or VTE Allergy: Denies history of personal or family history of allergy to anesthesia ? PHYSICAL EXAMINATION: ? VITALS: Blood pressure 134/90, height 157.5 cm (5' 2), weight 104.3 kg (230 lb), last menstrual period 02/10/2025. ? GENERAL: The patient is well nourished, well hydrated in no acute distress. , The patient is oriented to time, place, and person. NECK: Supple. No lynphadenopathy, normal thyroid, no thyromegaly. LUNGS: Clear to auscultation bilaterally. no wheezes, rhonchi or rales HEART: Regular rate and rhythm, Normal heart sounds, and No murmurs or gallops ? Pelvic US: 01/21/25 Uterus Uterus: Visualized Uterus [...] D3 19 mm Lt ovary Vol 9.6 cm? Cul de Sac Visualized. no free fluid visualized ? ? IMPRESSION: menorrhagia, dyspareunia, fe def.anemia, subserosal fibroids ? PLAN: The risks/benefits/alternatives and personal involved for the planned TLH, LSO, right salpingectomy were reviewed with the patient. Her questions were answered to her satisfaction and she desires to proceed. Consent was signed. I reviewed with her postop instructions and expectations. ? ? I have reviewed and updated past medical and surgical history, medications and allergies Assessment & Plan Assessment/Plan (1) Menorrhagia: QUALIFIERS: Menorrhagia type: with regular cycle Qualified Code(s): N92.0 - Excessive and frequent menstruation with regular cycle (2) Dyspareunia: (3) Submucous uterine fibroid: (4) Fe deficiency anemia: QUALIFIERS: Iron deficiency anemia type: chronic blood loss Qualified Code(s): D50.0 - Iron deficiency anemia secondary to blood loss (chronic) 04/26/25 1257 Cosigner Signature (if applicable): CC: Dr. Sanket Cruz MD; Dr. Tim Yip MD~ Signed ADDENDUM by Dr. Tim Yip MD on 05/12/25 at 0728 Addendum UPDATE- I have seen the patient and performed any clinically relevant updates to the history and physical exam. 05/12/25 0728 Cosigner Signature (if applicable): cc: Dr. Sanket Cruz MD; Dr. Tim Yip MD ~* Signed [facility]06-19-2025 Consult note [facility] Medical Records Department [address] [place] [address] Pre-Anesthesia Evaluation 05/12/25 0641 MR#: [id number] Acct: [id number] Name: MICHAEL CASTRO Rep #:[id number] : 1985 40 From: Kamron Wing MD PCP: Dr. Sanket Cruz MD Status:REG [facility] Y Race: AA Location: [place] [address] ASA Classification* ASA Classification ASA Classification: 3 (BMI > 40. Hx PONV, migraines, anemia ) Assessment & Plan Anesthesia* Anesthesia Assessment Anesthesia Assessment: Discussed sedation and/or anesthesia options, risks, benefits, and alternatives with patient/parents/legal guardian/POA. Questions invited. The patient/parents/legal guardian/POA seems to understand and agrees to proceedwith anesthesia plan. Reviewed the physical assessment, medical history, allergy history and patient home medications list prior to surgery/procedure/anesthetic and documented any changes. Performed airway and anesthesia risk assessments. Anesthesia Type Anesthesia Type: General (TIVA for PONV ) History Source History Obtained from:: Patient and Chart Anesthesia Focused Assessment* Temperature: 98.1 F Pulse Rate: 76 Blood Pressure: 143/83 Respiratory Rate: 16 Pulse Ox: 99 Oxygen Delivery Method: Room Air Airway Assessment Mouth opens: >3 cm Mallampati Score: III Teeth Condition: Intact Neck Range of motion (ROM): Full ROM Labs Anesthesia Preop lab: CBC WBC 9.0 K/mm3 (4.4-11.0) 05/05/25 08:22 05/05/25 RBC 4.67 M/mm3 (4.2-5.4) 05/05/25 08:22 05/05/25 Hgb 13.2 g/dL (12.0-15.0) 05/05/25 08:22 05/05/25 Hct 40.5 % (37-47) 05/05/25 08:22 05/05/25 Plt Count 395 K/mm3 (150-450) 05/05/25 08:22 05/05/25 CHEMISTRY Potassium 3.8 mmol/L (3.5-5.1) 02/01/14 09:40 02/01/14 Sodium 137 mmol/L (136-145) 02/01/14 09:40 02/01/14 Magnesium 2.2 mg/dL (1.5-2.2) 05/05/25 08:22 05/05/25 BUN 11 mg/dL (7-18) 02/01/14 09:40 02/01/14 Creatinine 0.71 mg/dL (0.55-1.02) 07/07/17 00:35 07/07/17 Glucose 85 mg/dL (74-106) 10/19/18 07:55 10/19/18 COAG PT 13.4 SECONDS (11.7-14.9) 05/05/25 08:22 HCG, Quant 858 mIU/mL (<9 non-preg) H 10/24/14 09:20 1212/07 Urine Test Negative Negative 05/12/25 05:58 05/12/25 Pre-Assessment Diagnosis/Proposed Procedure Planned Operative Procedure(s): ERAS, Hysterectomy,TLH, bilateral salpingectomy,left oophorectomy, cystoscopy Anesthesia History Anesthesia History - special education tutor: Anesthesia History - special education tutor Hx Hospitalization No 04/29/25 08:25 Any Problems With Anesthesia Yes: PONV 04/29/25 08:25 Cholinesterase deficiency No 04/29/25 08:25 You/Your Family Experience No 04/29/25 08:25 fever (hyperthermia) with Relationship Recent Exposure to Contagious No 05/12/25 06:06 Disease Does patient have nerve No 04/29/25 08:25 stimulator Patient instructed to have device shut off --Does patient have Pacemaker No 05/12/25 06:06 or ICD? When Was Last Pacemaker Check QUESTION #4 FULL TEXT: You/Your Family Experience fever (hyperthermia) with Anesthesia Last Oral Intake Last Oral intake: Last Oral Intake NPO since 20:00 05/12/25 06:06 Meds taken in AM with sips of No 05/12/25 06:06 water? Meds patient instructed to take am of surgery PONV PONV - special education tutor: PONV - special education tutor Female Yes 04/29/25 08:25 HX of Motion Sickness No 04/29/25 08:25 HX of N/V After Surgery No 04/29/25 08:25 Non-Smoker Yes 04/29/25 08:25 Duration of Surgery greater Yes 04/29/25 08:25 than 60 minutes Number of Risk Factors 3 04/29/25 08:25 PONV Score Moderate Risk 04/29/25 08:25 Height & Weight Height & Weight: Anesthesia: Height & Weight Height 5 ft 1.5 in 05/12/25 06:06 Weight: 104.3 kg 05/12/25 06:06 Body Mass Index (BMI) 42.7 05/12/25 06:06 Respiratory Assessment Respiratory Assessment - special education tutor: Respiratory Tract Infection Hx - special education tutor Hx Respiratory Tract Infection No 04/29/25 08:25 STOP Sleep Apnea STOP Sleep Apnea - special education tutor: STOP Sleep Apnea - special education tutor Hx Hypertension No 04/29/25 08:25 Hx Sleep [...] than talking or can be heard through closeddoors)? Tobacco Use History Tobacco Use History - special education tutor: Tobacco Use History - special education tutor Tobacco Use Smoking Status Never smoker 04/29/25 08:25 Hx Tobacco Use No 04/29/25 08:25 Years Smoking Packs Smoked per Day Smoking Cessation Date was within the last 15 years Hx Smoking Cessation Date Hx Smoking Cessation Counseling Hematologic Medial History Hematologic Hx - special education tutor: Hematologic Medical Hx - brassiere cup mold cutter Hx of Blood Transfusion No 04/29/25 08:25 Hx of Transfusion in last 3 No 04/29/25 08:25 Months Date of Last Transfusion (if within last 3 months) Ever experience any problems No 04/29/25 08:25 with transfusion(s)? Specify any problems Hx of Preganancy in last 3 No 04/29/25 08:25 Months Nurse Filling Out Transfusion MGRIFFITH 04/29/25 08:25 & Questions: Date: 04/29/25 04/29/25 08:25 Time: 08:27 04/29/25 08:25 Patient unable to answer at this time (ie. confused, unrespo /Reproduction History /Reproductive History - special education tutor: /Reproductive Hx- special education tutor Hx Now No 04/29/25 08:25 Gestational Age (in weeks): EDC: Hx Hx Para Hx Section SAB No 04/29/25 08:25 Active Medications Active Medications: Current Medications Generic Name Dose Route Start Last Admin Trade Name Freq PRN Reason Stop Dose Admin Acetaminophen 1,000 mg 05/12/25 07:30 05/12/25 06:13 Acetaminophen 500 Mg Tablet PO 05/12/25 07:31 1,000 mg PREOP ONE Administration Celecoxib 400 mg 05/12/25 07:30 05/12/25 06:13 Celecoxib 200 Mg Capsule PO 05/12/25 07:31 400 mg PREOP ONE Administration Dexamethasone Sodium Phosphate 8 mg 05/12/25 07:30 Dexamethasone 4 Mg/Ml Vial IV 05/12/25 07:31 INTRAOP ONE Enoxaparin Sodium 40 mg 05/12/25 07:30 05/12/25 06:11 Enoxaparin 40 Mg/0.4 Ml Syringe SC 05/12/25 07:31 40 mg PREOP ONE Administration Gabapentin 600 mg 05/12/25 07:30 Gabapentin 600 Mg Tablet PO 05/12/25 07:31 PREOP ONE Lactated Ringer's 1,000 mls @ 40 mls/hr 05/12/25 07:30 05/12/25 06:14 IV 40 mls/hr .Q25H KEVIN Administration Cefazolin Sodium 2 gm/ Sodium 110 mls @ 150 mls/hr 05/12/25 07:30 Chloride IV 05/12/25 08:13 INTRAOP ONE Metronidazole 500 mg in 100 mls @ 100 mls/hr 05/12/25 07:30 05/12/25 06:14 Flagyl IV 05/12/25 08:29 100 mls/hr INTRAOP ONE Administration Magnesium Sulfate 1 gm/ 102 mls @ 408 mls/hr 05/12/25 07:30 05/12/25 06:15 Dextrose IV 05/12/25 07:44 408 mls/hr INTRAOP ONE Administration Lactated Ringer's 1,000 mls @ 15 mls/hr 05/12/25 06:00 IV .Q48H KEVIN Insulin Human Lispro 0 unit 05/12/25 07:30 Insulin Lispro 100 Unit/Ml Insuln.Pen SC 05/12/25 13:30 Q4H PRN PRN BG >/= 180, SEE PROTOCOL Protocol Ondansetron HCl 4 mg 05/12/25 07:30 Ondansetron 4 Mg/2 Ml Vial IV 05/12/25 07:31 INTRAOP ONE Phenazopyridine HCl 190 mg 05/12/25 07:30 05/12/25 06:12 Phenazopyridine 95 Mg Tablet PO 05/12/25 07:31 190 mg PREOP ONE Administration Scopolamine HBr 1 patch 05/12/25 07:30 05/12/25 06:12 Scopolamine 1mg/72hr Patch TD 05/12/25 07:31 1 mg PREOP ONE Administration PFSH Medical History (Updated 05/10/25 @ 14:03 by JOCY Carrasco) Wears glasses Alcohol use Rash Low iron Migraine headache Non-smoker History of echocardiogram PONV (postoperative nausea and vomiting) BPPV (benign paroxysmal positional vertigo) Home Medications ?Medication ?Instructions ?Recorded ?Last Taken ?Type fdttsfkdod-rbmyzvremkfdq-dhamdmgg 1 tab PO Q6H PRN Hea dache #40 tabs 07/10/17 Unknown Rx 50 mg-325 mg-40 mg tablet meclizine 25 mg tablet 25 mg PO TID PRN dizziness # 30 tabs 10/03/22 Unknown Rx Allergy/AdvReac Type Severity Reaction Status Date / Time No Known Allergies Allergy Verified 04/29/25 08:22 Surgical History (Updated 04/29/25 @ 08:25 by Love Olivo) History of tonsillectomy and adenoidectomy History of Social History (Updated 07/31/18 @ 11:34 by Johnny CUENCA, BANG) Smoking Status: Never smoker Review of Systems (Anesthesia) ROS Narrative System reviewed and no additional complaints, except as documented. Physical Exam Const alert and oriented x3 Nutritional Appearance: obese Resp normal respiratory effort, normal air movement and clear to auscultation bilaterally Cardio regular rate, regular rhythm, no murmurs and diaphoretic 05/12/25 0645 MD> Date _ Kamron Wing MD Cosigner Signature: Date CC: ~ Signed [facility]06-17-2025 Evaluation note* Diagnosis Onset Date Resolution Status Admit Date Right hip pain acute May 10, 2025 1:11pm Unilateral primary osteoarthritis, right hip acute April 242024 1:11pm Dyspareunia acute May 12 5:30am Fe deficiency anemia acute May 12, 2025 5:30am Menorrhagia acute May 12 5:30am Submucous uterine fibroid acute May 12, 2025 5:30am [facility] Work Phone: 1(558) 281-244206-17-2025 History of Present illness Narrative* Jeana Flores, LYNDON - 05/10/2025 8:30 AM EDT Radiology Service Progress Note PATIENT NAME: Michael Castro DATE OF SERVICE: May 10, 2025 TIME: 2:52 PM PATIENT IDENTITY VERIFICATION COMPLETED USING TWO (2) IDENTIFIERS: Name and Date of confirmedby patient verbally. FALL SCREENING: Has the patient had 2 falls in the last year or 1 fall with injury or currently using an Ambulatory Assistive Device (Walker, Cane, Wheelchair, Crutches, etc.)? No PATIENT GENDER DATA: Assigned female at . status: : No status:NO. PATIENT RELEVANT IMPLANT DATA REVIEWED: Not Applicable PATIENT PRESENTS WITH AN IMPLANTABLE OR ATTACHED TECHNICAL COMMUNICATOR: No RADIOLOGY DEPARTMENT: Ultrasound PERIPHERAL IV DATA: Not applicable SIGNED BY: Jeana Flores RDMS RVSlade May 10, 2025 2:52 PM documented in this encounterUniversity Hospitals Geneva [facility]06-17-2025 NoteHNO ID: [id number] Author: JEANA FLORES RDMS Service: ? Author Type: Drafting Supervisor Type: Progress Notes Filed: 05/10/2025 14:52 Note Text: Radiology Service Progress Note PATIENT [...] PATIENT PRESENTS WITH AN IMPLANTABLE OR ATTACHED TECHNICAL COMMUNICATOR: No RADIOLOGY DEPARTMENT: Ultrasound PERIPHERAL IV DATA: Not applicable SIGNED BY: Jeana Flores RDMS RVT May 10, 2025 2:[address] [facility]06-17-2025 History of Present illness Narrative* Jalil Veloz, Mammo Tech - 05/10/2025 8:00 AM EDT Radiology Service Progress Note PATIENT NAME: Michael Castro DATE OF SERVICE: May 10, 2025 TIME: 9:13 AM PATIENT IDENTITY VERIFICATION COMPLETED USING TWO (2) IDENTIFIERS: Name and Date of confirmedby patient verbally. FALL SCREENING: Has the patient had 2 falls in the last year or 1 fall with injury or currently using an Ambulatory Assistive Device (Walker, Cane, Wheelchair, Crutches, etc.)? No PATIENT GENDER DATA: Assigned female at . status: : No status:NO. PATIENT RELEVANT IMPLANT DATA REVIEWED: Not Applicable PATIENT PRESENTS WITH AN IMPLANTABLE OR ATTACHED TECHNICAL COMMUNICATOR: No RADIOLOGY DEPARTMENT: Mammography PERIPHERAL IV DATA: Not applicable SIGNED BY: Karen Morales May 10, 2025 9:13 AM documented in this encounterUniversity Hospitals Geneva [facility] Center06-17-2025 NoteHNO ID: [id number] Author: JALIL VELOZ Mammo Tech Service: ? Author Type: Blackener Type: Progress Notes Filed: 05/10/2025 09:13 Note Text: Radiology Service Progress Note PATIENT [...] PATIENT PRESENTS WITH AN IMPLANTABLE OR ATTACHED TECHNICAL COMMUNICATOR: No RADIOLOGY DEPARTMENT: Mammography PERIPHERAL IV DATA: Not applicable SIGNED BY: Karen Morales May 10, 2025 9:13 [facility]06-05-2025 Telephone encounter Note* Telephone Encounter - Candice Powell RN - 04/28/2025 12:09 PM EDT Spoke with pt, reviewed message from provider- Please have her stay preferentially supine and hydrate for the next 1-2 days for starters. Caffeineok. OP was 17. Probably low pressure. Pt verbalized understanding, will call pt tomorrow with update. [facility]06-05-2025 Miscellaneous Notes* Telephone Encounter - Candice Powell RN - 04/28/2025 12:09 PM EDT Spoke with pt, reviewed message from provider- Please have her stay preferentially supine and hydrate for the next 1-2 days for starters. Caffeineok. OP was 17. Probably low pressure. Pt verbalized understanding, will call pt tomorrow with update. * Telephone Encounter - Candice Powell RN - 04/28/2025 8:48 AM EDT Received MC message from pt, pt had LP on 04/26, yesterday around 3 pm when waking from a nap, pt experience intense headache, lowed whirring sound, like a helicopter in my head. Pain worse when standing or sitting, some relief when laying, whirring noise does not stop. Pt has slight neck stiffness, waves of nausea, light sensitivity and dizziness. documented in this encounterUniversity Hospitals Geneva [facility] Center06-05-2025 Telephone encounter Note * Telephone Encounter - Candice Powell RN - 04/28/2025 9:00 AM EDT See telephone encounter [facility]06-05-2025 Miscellaneous Notes* Telephone Encounter - Candice Powell RN - 04/28/2025 9:00 AM EDT See telephone encounter documented in this encounterUniversity Hospitals Geneva [facility] Center06-05-2025 Telephone encounter Note * Telephone Encounter - Candice Powell RN - 04/28/2025 8:48 AM EDT Received MC message from pt, pt had LP on 04/26, yesterday around 3 pm when waking from a nap, pt experience intense headache, lowed whirring sound, like a helicopter in my head. Pain worse when standing or sitting, some relief when laying, whirring noise does not stop. Pt has slight neck stiffness, waves of nausea, light sensitivity and dizziness. [facility]06-03-2025 [facility] Medical Records Department [address] [place] [address] History Physical Exam 04/26/25 1254 MR#: [id number] Acct: [id number] Name: MICHAEL CASTRO Rep #: [id number] : 1985 40 From: Tim Yip MD PCP: Dr. Sanket Cruz MD Status:[facility] Location: [place] [address] History and Physical Date of Admission: 05/12/25 [...] of both hips03/01/2022???Cymbalta has helped. ???Anxiety with zhptoncnrr87/02/2021???Arthritis of right hip12/30/2024???X-ray 12/2024: mild?Elevated hemoglobin A1c07/26/2021???GERD without shgepbjkvod96/02/2021???Hip pain07/11/2014???History of 2019 novel coronavirus disease (COVID-19)11/01/2020???10/27/2020???Inflammatory polyarthropathy (HCC)02/10/2014???Sees Dr. Sandoval ???Iron deficiency nmkoie8610/24/2022???Low iron01/23/2021???Muscle spasm05/19/2013???MVP (mitral valve prolapse)02/10/2014???On 2 D echo 01/2014 ???Pain in joint, ankle and foot02/19/2012???Pseudotumor cerebri?Right hip pain06/25/2021???Saw Ortho (Dr. Brownlee) Told bone on bone.???Routine gynecological examination?Dr Doty???Valvular heart wlzmijz8102/10/2014???2D echo 01/2014: 1+ MVI and TI ???Vitamin D tjitdkqfif01/20/2014 ? PAST SURGICAL HISTORY PAST SURGICAL HISTORYProcedureLateralityDate???2D ECHO (EXEP)?EF=60%, mild MVP, +1 MVI and TI??? DELIVERY ONLY?, low cervical??? DELIVERY ONLY???07/07/2017???LIGATE FALLOPIAN TUBE???2017???at csection???PAST SURGICAL HISTORY OF???08/2000???TENDON REPAIR RIGHT WRIST???STRESS ECHO???02/13/2021???normal???TONSILLECTOMY PRIMARY/SECONDARY ? CURRENT MEDICATIONS Current Outpatient MedicationsMedicationSigDispenseRefill???norethindrone (AYGESTIN) 5 mg tabletTAKE 1 TABLET BY [...] Known ProblemsBrother?No Known ProblemsBrother?No Known ProblemsBrother?COPDMaternal Grandmother?DiabetesMaternal Grandfather?HypertensionMaternal Grandfather?HeartMaternal Grandfather? had a difibulator???HypertensionPaternal Grandmother?other (Other)Paternal Grandmother? No breast/chauffeur cancer???AneurysmPaternal Grandfather?other (cask gene mutation)Daughter?Coronary Artery DiseaseNo [...] 107 mm Uterus width 58 mm Uterus hei (more content not included)...[facility]06-03-2025 History of Present illness Narrative* Tim Yip MD - 04/26/2025 11:57 AM EDT Michael Castro is a 40 year old female who presents for problem visit for discussion of heavy menses.. HPI: 40 YOf w/ heavy menses, cram;ping, deep dyspareunia. No new c/o today. Aygestin helped slow bleeding. No new c/o. OB History Gravida4 Para2 Term1 Preterm1 AB2 Living2 SAB1 IAB0 Ectopic0 Multiple0 Live Births2 Eeg Technologist History LMP: 02/10/2025 (Exact Date), Having periods Age at Menarche: 8 Age at First : Age at Menopause: Eeg Technologist History Comments: Sexual Activity: Yes; Male; one [...] Paternal Grandmother other (Other) Paternal Grandmother No breast/chauffeur cancer Aneurysm Paternal Grandfather other (cask gene [...] discussed with the Patient or Patient's Authorized Director Of Human Resources. As applicable, any other physician, advance practice provider, medical student, or other health professional student that will be observing or involved in the sensitive examination for educational or training purposes was discussed with the Patient or Authorized Director Of Human Resources. The Patient or Authorized Director Of Human Resources has agreed to proceed with the sensitive [...] external genitalia normal, normal Bartholin's glands, urethra, Souderton's glands, no vulvar lesions, no cervical lesions, [...] PATHOLOGY Tim Yip MD documented in this encounterUniversity Hospitals [facility] Center06-03-2025 NoteHNO ID: [id number] Author: TIM YIP MD Service: ? Author [...] Living2 SAB1 IAB0 Ectopic0 Multiple0 Live Births2 Eeg Technologist History LMP: 02/10/2025 (Exact Date), Having periods Age at Menarche: 8 Age at First : Age at Menopause: Eeg Technologist History Comments: Sexual Activity: Yes; Male; one [...] Paternal Grandmother other (Other) Paternal Grandmother No breast/chauffeur cancer Aneurysm Paternal Grandfather other (cask gene [...] discussed with the Patient or Patient's Authorized Director Of Human Resources. As applicable, any other physician, advance practice provider, medical student, or other health professional student that will be observing or involved in the sensitive examination for educational or training purposes was discussed with the Patient or Authorized Director Of Human Resources. The Patient or Authorized Director Of Human Resources has agreed to proceed with the sensitive [...] external genitalia normal, normal Bartholin's glands, urethra, Souderton's glands, no vulvar lesions, no cervical lesions, good vaginal support, physiologic discharge present, normal appearing perineal body and perianal region BIMANUAL: uterus normal size, shape and consistency, no adnexal masses, and non-tender ASSESSMENT AND PLAN: Assessment AND Plan Iron deficiency anemia due to chronic blood loss cont. aygestin to control bleeding s/p IV fe Orders: SURGICAL PATHOLOGY Menorrhagia with reg (more content not included)...[facility] 04-21-2025 History and physical note* Tim Yip MD - 04/21/2025 2:43 PM EDT Pre-Op History and Physical HPI: The patient [...] Paternal Grandmother other (Other) Paternal Grandmother No breast/chauffeur cancer Aneurysm Paternal Grandfather other (cask gene [...] history, medications and allergies Tim Yip M.D. [facility]05-29-2025 History and physical note* Tim Yip MD - 04/21/2025 2:43 PM EDT Pre-Op History and Physical HPI: The patient [...] ONLY 07/07/2017 [facility] PAST SURGICAL HISTORY OF 08/2000 TENDON REPAIR [...] Paternal Grandmother other (Other) Paternal Grandmother No breast/chauffeur cancer Aneurysm Paternal Grandfather other (cask gene [...] allergies Tim Yip M.D. documented in this encounterUniversity Hospitals Geneva Medical Center05-15-2025 Instructions* Patient Instructions* Brooke Duncan MD - 04/07/2025 9:33 AM [...] procedure, including bleeding, vein injury, and stroke, thoughthese risks are low. We discussed your upcoming medical procedures and timeline: - Please schedule for a hip injection in April to manage pain from degenerative joint disease. - You are scheduled for a hysterectomy on May 12 due to fibroids and heavy bleeding. Blood thinners for the stent procedure will not be started until you are fully cleared by your supervisor patching. - A lumbar puncture will be scheduled at [facility] to provide temporary symptom relief ahead of your hysterectomy. We discussed additional considerations: - Please schedule for an eye exam fore your stenting procedure - We discussed reducing your caffeine intake (currently 8 cups daily) in the supervisor intermediates to lower your risk of osteoporosis and improve overall health. Next steps: - Proceed with your scheduled hip injection and hysterectomy. Ensure you follow up with your supervisor patching for post-operative clearance. - My team will coordinate with [facility] to schedule your lumbar puncture after your hysterectomy recovery. - Once cleared, we will proceed with the stent evaluation and potential placement. My team will assist with scheduling and pre-procedure instructions. - Continue to monitor your symptoms and notify us of any significant changes. Please reach out with any questions or concerns as we move forward with your care plan. documented in this encounterUniversity Hospitals Geneva Medical Center05-15-2025 History of Present illness Narrative* Brooke Duncan MD - 04/07/2025 8:00 AM EDT Images from the original note were not included. [facility] Initial Visit Michael Lucioparas CC#: [id number] Date of Service: 04/07/2025 Primary Care Provider: [...] pulsatile tinnitus with interval resolution of facial twitchingand numbness. She was seen by ophthalmology in [...] Current treatment team: - Headache: Tanya Vernon GROUP FITNESS ASSISTANT DEPARTMENT HEAD - Neuro-ophthalmology / Ophthalmology: Patricia FUENTES, appointment in May - Neurosurgery: NA - Weight management (Endocrinology / Bariatric surgery): NA - Neuroendovascular: Brooke Duncan MD - stump shooter: Dr Tim Yip MD Past Medical History: [...] comprehension and to 2-step crossed commands, word andsentence repetition, and naming. No paraphasias. - Normal [...] idiopathic intracranial hypertension without significant change since 2022. Otherwise normal study. Normal intracranial MRA. No [...] temporary relief. Recent MRI shows venous sinus st enosis. - Discussed potential for venous sinus stenting to alleviate symptoms. We would wait until after her neuro-ophthalmology consultation with Dr Gomez to confirm this. - Will coordinate with patient's supervisor patching Dr. Yip to schedule the procedure after recovery from upcoming hysterectomy. Per Dr. Yip, she may initiate dual antiplatelet therapy 1 week afterthe hysterectomy. (High risk patient would be eligible for anticoagulation as early as 2 days afterthe procedure.) - Ordered lumbar puncture to be performed at [facility] prior to stenting procedure. - May consider [...] next corticosteroid injection on April 29 at [facility]. - Will coordinate timing of stenting procedure to minimize interruption of pain management. # Class 3 severe obesity with serious comorbidity and body mass index (BMI) of 40.0 to 44.9 in adult, unspecified obesity type (E66.813) Current weight 231 lbs, BMI 40.0-44.9. Previous weight loss of 70 lbs over the last 3 years did notsignificantly impact IIH symptoms. - Continue weight management efforts. - Discussed potential benefits of further weight loss on intracranial pressure. Recording using [employer] software for draft documentation of the visit was discussed with the patient/authorized auto service representative; all questions welcomed and answered. Patient/authorized auto service representative agreed to proceed SIGNATURE Brooke Duncan MD Staff, Neuroendovascular Intervention documented in this encounterUniversity Hospitals Geneva Medical Center05-15-2025 NoteHNO ID: [id number] Author: BROOKE DUNCAN MD Service: ? Author Type: Physician Type: Progress Notes Filed: 04/24/2025 11:21 Note Text: [facility] Initial Visit Michael Castro [facility]#: [id number] Date of Service: 04/07/2025 Primary Care Provider: [...] Sound in ear, i (more content not included)...[facility] 03-29-2025 Telephone encounter Note* Telephone Encounter - Tanya Vernon APRN.CNP - 03/29/2025 1:28 PM EDT LP order placed. [facility]05-06-2025 Miscellaneous Notes* Telephone Encounter - Tanya Vernon APRN.CNP - 03/29/2025 1:28 PM EDT LP order placed. * Telephone Encounter - Jayce Ramírez RN - 03/28/2025 3:42 PM EDT New LP order needed. documented in this encounterUniversity Hospitals Geneva Medical Center05-05-2025 Telephone encounter Note * Telephone Encounter - Yadi Johnson - 03/28/2025 6:20 PM EDT OSH imaging/records received from [facility]: March 28, 2025 -Records & Imaging available in Chart [facility]05-05-2025 Miscellaneous Notes* Telephone Encounter - Yadi Johnson - 03/28/2025 6:20 PM EDT OSH imaging/records received from [facility]: March 28, 2025 -Records & Imaging available in Chart * Telephone Encounter - Yadi Johnson - 03/28/2025 6:13 PM EDT ENDOVASCULAR INTAKE Patient name: Michael Castro When [...] see our center? (referring provider) Tanya Vernon APRN.GROUP FITNESS ASSISTANT DEPARTMENT HEAD Has your referring provider recommended a specific provider in our department? no Is this a second opinion? Have you been recommended for surgery or procedure for this condition? No+ yes a LP If yes, have you scheduled this procedure at another facility? No as order hasn't been placed yet If yes, when is the procedure scheduled? no Where have you had any imaging for this diagnosis in the past year? These include images such as ultrasounds, MRIs, CTs, or angiograms of the head, brain, neck, carotids, or spine. [facility] Have you had any surgeries or procedures for this condition? yes If yes, where was it done and when? Who performed the surgery or procedure? 2021 possibly LP at [facility] Does any of the following pertain to you? Family history of brain aneurysm? no Polycystic kidney disease or other genetic kidney disease? Not applicable if chronic kidney disease. no Connective tissue disease such as fibromuscular dysplasia or Dylon-Danlos Syndrome? no Do you prefer in-person or virtual appointment? Out of state residents must be in [place] at the time of their virtual visit. In person Specific day of the week or time of day? Mondays preferred but will make anything work Do you prefer to be notified of your appointment by phone or MyChart message? Phone + ok to LVM Thank you for speaking with me today. Your information will now be forwarded to our endovascular advance practice provider team to review and provide scheduling recommendations. Please allow 3 business days to hear back from us. If you do not, feel free to call back [phone] for an update. documented in this encounterUniversity Hospitals [facility] Center05-05-2025 Telephone encounter Note * Telephone Encounter - Yadi Johnson - 03/28/2025 6:13 PM EDT ENDOVASCULAR INTAKE Patient name: Michael Castro When [...] see our center? (referring provider) Tanya Vernon APRN.GROUP FITNESS ASSISTANT DEPARTMENT HEAD Has your referring provider recommended a specific provider in our department? no Is this a second opinion? Have you been recommended for surgery or procedure for this condition? No+ yes a LP If yes, have you scheduled this procedure at another facility? No as order hasn't been placed yet If yes, when is the procedure scheduled? no Where have you had any imaging for this diagnosis in the past year? These include images such as ultrasounds, MRIs, CTs, or angiograms of the head, brain, neck, carotids, or spine. [facility] Have you had any surgeries or procedures for this condition? yes If yes, where was it done and when? Who performed the surgery or procedure? 2021 possibly LP at [facility] Does any of the following pertain to you? Family history of brain aneurysm? no Polycystic kidney disease or other genetic kidney disease? Not applicable if chronic kidney disease. no Connective tissue disease such as fibromuscular dysplasia or Dylon-Danlos Syndrome? no Do you prefer in-person or virtual appointment? Out of state residents must be in [place] at the time of their virtual visit. In person Specific day of the week or time of day? Mondays preferred but will make anything work Do you prefer to be notified of your appointment by phone or Buysighthart message? Phone + ok to LVM Thank you for speaking with me today. Your information will now be forwarded to our endovascular advance practice provider team to review and provide scheduling recommendations. Please allow 3 business days to hear back from us. If you do not, feel free to call back [phone] for an update. [facility]05-05-[facility]25 Telephone encounter Note* Telephone Encounter - Jayce Ramírez RN - 03/28/2025 3:42 PM EDT New LP order needed. [facility]05-05-2025 Telephone encounter Note* Telephone Encounter - Beena Marvin RN - 03/28/2025 10:32 AM EDT Pharmacy requesting 90 days. Last annual 02/03/25 with KJ Requested Prescriptions Pending Prescriptions Disp Refills norethindrone (AYGESTIN) 5 mg tablet [Pharmacy Med Name: NORETHINDRONE 5 MG TABLET] 90 tablet 3 Sig: TAKE 1 TABLET BY MOUTH EVERY DAY Beena Marvin RN [facility]05-05-2025 Miscellaneous Notes* Telephone Encounter - Beena Marvin RN - 03/28/2025 10:32 AM EDT Pharmacy requesting 90 days. Last annual 02/03/25 with KJ Requested Prescriptions Pending Prescriptions Disp Refills norethindrone (AYGESTIN) 5 mg tablet [Pharmacy Med Name: NORETHINDRONE 5 MG TABLET] 90 tablet 3 Sig: TAKE 1 TABLET BY MOUTH EVERY DAY Beena Marvin RN documented in this encounterUniversity Hospitals Geneva Medical Center05-01-2025 Telephone encounter Note * Telephone Encounter - Danielle Delatorre RN - 03/24/2025 3:52 PM EDT Call to patient. Informed her of message from provider. She is OK with cerebrovascular consult. She states she has an appointment with her established sub plant manager at the end of April but that was the soonest she could get in with them. I provided her with the number to [facility] scheduling tosee if any appointments were available sooner whether it is with ophthalmology or neuro-ophthalmology. She verbalized understanding. [facility]05-01-2025 Miscellaneous Notes* Telephone Encounter - Danielle Delatorre RN - 03/24/2025 3:52 PM EDT Call to patient. Informed her of message from provider. She is OK with cerebrovascular consult. She states she has an appointment with her established sub plant manager at the end of April but that was the soonest she could get in with them. I provided her with the number to [facility] scheduling tosee if any appointments were available sooner whether it is with ophthalmology or neuro-ophthalmology. She verbalized understanding. documented in this encounterUniversity Hospitals Geneva Medical Center2025 NoteHNO ID: [id number] Author: CHAPO MINAYA RT(R) Service: ? Author Type: Technologist Type: [...] PATIENT PRESENTS WITH AN IMPLANTABLE OR ATTACHED TECHNICAL COMMUNICATOR: No ALLERGIES: Reviewed and unchanged CONTRAST ALLERGY: NO. EXAM: MRI - CONTRAST TYPE: GROUP II PERIPHERAL IV DATA: Ambulatory: A peripheral IV was started in the Right antecubital site with a Butterfly: 22 gauge. RADIOLOGY DEPARTMENT: MR; Exam(s) Completed: Head: Routine Brain IAC/CPA [place] MRA Sagittal Sinus MRV. Lavender Administered: No SIGNATURE: RT Alvaro(R) PATIENT NAME: Michael Castro DATE: March 18, 2025 TIME: 2:05 [facility]04-18-2025 Telephone encounter Note* Telephone Encounter - Evangelina Matos RN - 03/11/2025 8:51 AM EDT Prescription Refill Information The patient has been [...] DAY Last ordered: 02/17/2025 Routing to provider. Evangeilna Matos RN March 11, 2025 8:51 AM [facility]04-18-2025 Miscellaneous Notes* Telephone Encounter - Evangelina Matos RN - 03/11/2025 8:51 AM EDT Prescription Refill Information The patient has been [...] 11, 2025 8:51 AM documented in this encounterUniversity Hospitals Geneva Medical Center04-10-2025 History of Present illness Narrative* Sanket Cruz MD - 03/03/2025 2:20 PM EDT Chief Complaint Patient presents with: Follow Up [...] with a definitive cause and plans to followup on the testing. Recent labs +anemia. Recently told to start iron. However she has never been able to tolerate oral iron. Being worked up for frequent heavy menstrual bleeding. Recent US showed fibroids. Has follow up with chauffeur Previously saw rheumatology but that was over [...] Paternal Grandmother other (Other) Paternal Grandmother No breast/chauffeur cancer Aneurysm Paternal Grandfather other (cask gene [...] the right slightly opaque but light reflex isnormal and no erythema. . Neck: Supple, no [...] issues. Sanket Cruz MD documented in this encounterUniversity Hospitals Geneva Medical Center04-10-2025 NoteHNO ID: [id number] Author: SANKET CRUZ MD Service: ? Author [...] US showed fibroids. Has follow up with chauffeur Previously saw rheumatology but that was over [...] Paternal Grandmother other (Other) Paternal Grandmother No breast/chauffeur cancer Aneurysm Paternal Grandfather other (cask gene [...] Readings: Date: Wt: 03/03/2025 (more content not included)...[facility]04-04-2025 NoteHNO ID: [id number] Author: SIDRA DOTY APRN.[facility] Service: ? Author Type: Nurse Practitioner Type: [...] history is provided by the patient. No historic interpreter was used. Ear Problem Review of Systems [...] ONLY 07/07/2017 LIGATE FALLOPIAN TUBE 2017 at [facility] PAST SURGICAL HISTORY OF 08/2000 TENDON REPAIR [...] Paternal Grandmother other (Other) Paternal Grandmother No breast/chauffeur cancer Aneurysm Paternal Grandfather other (cask gene [...] MG-POTASSIUM CLAVULANATE 125 MG TABLET Sidra Doty APRN.GROUP FITNESS ASSISTANT DEPARTMENT HEAD History and Record Review External record(s) reviewed: no prior records. Disposition The patient was discharged. [facility]04-04-[facility] History of Present illness Narrative* Sidra Doty APRN.GROUP FITNESS ASSISTANT DEPARTMENT HEAD - 02/25/2025 2:24 PM EDT [facility] Subjective Michael Castro is a 39 year old female. Patient presents with: Ear Problem: Bilateral pain, L feels full of water x6 days Patient came in with complaints of bilateral ear pain. Patient says the left hurts worse than the right. Patient says they feel full. Patient denies any other symptoms. The history is provided by the patient. No historic interpreter was used. Ear Problem Review of Systems [...] ONLY 07/07/2017 LIGATE FALLOPIAN TUBE 2017 at [facility] PAST SURGICAL HISTORY OF 08/2000 TENDON REPAIR [...] Paternal Grandmother other (Other) Paternal Grandmother No breast/chauffeur cancer Aneurysm Paternal Grandfather other (cask gene [...] MG-POTASSIUM CLAVULANATE 125 MG TABLET Sidra Doty APRN.GROUP FITNESS ASSISTANT DEPARTMENT HEAD History and Record Review External record(s) reviewed: no prior records. Disposition The patient was discharged. Procedures documented in this encounterUniversity Hospitals Geneva Medical Center04-03-2025 NoteHNO ID: [id number] Author: TIM YIP MD Service: ? Author [...] Living2 SAB1 IAB0 Ectopic0 Multiple0 Live Births2 Eeg Technologist History LMP: 01/18/2025 (Exact Date), Having periods Age at Menarche: 8 Age at First : Age at Menopause: Eeg Technologist History Comments: Sexual Activity: Yes; Male; one [...] Paternal Grandmother other (Other) Paternal Grandmother No breast/chauffeur cancer Aneurysm Paternal Grandfather other (cask gene [...] discussed with the Patient or Patient's Authorized Director Of Human Resources. As applicable, any other physician, advance practice provider, medical student, or other health professional student that will be observing or involved in the sensitive examination for educational or training purposes was discussed with the Patient or Authorized Director Of Human Resources. The Patient or Authorized Director Of Human Resources has agreed to proceed with the sensitive examination. (Sensitive examination includes inspection and/or palpation of the breasts, pelvis, prostate and anorectal regions). EXAM: BP 132/86 Wt 226 lb (102.5kg) LMP 01/18/2025 GENERAL: pl (more content not included)...[facility]04-03-2025 History of Present illness Narrative* Tim Yip MD - 02/24/2025 11:08 AM EDT Michael Castro is a 39 year old [...] Living2 SAB1 IAB0 Ectopic0 Multiple0 Live Births2 Eeg Technologist History LMP: 01/18/2025 (Exact Date), Having periods Age at Menarche: 8 Age at First : Age at Menopause: Eeg Technologist History Comments: Sexual Activity: Yes; Male; one [...] Paternal Grandmother other (Other) Paternal Grandmother No breast/chauffeur cancer Aneurysm Paternal Grandfather other (cask gene [...] discussed with the Patient or Patient's Authorized Director Of Human Resources. As applicable, any other physician, advance practice provider, medical student, or other health professional student that will be observing or involved in the sensitive examination for educational or training purposes was discussed with the Patient or Authorized Director Of Human Resources. The Patient or Authorized Director Of Human Resources has agreed to proceed with the sensitive examination. (Sensitive examination includes inspection and/or palpation of the breasts, pelvis, prostate and anorectal regions). EXAM: BP 132/86 Wt 226 lb (102.5kg) LMP 01/18/2025 GENERAL: pleasant, female in no apparent distress ABDOMEN: soft, non-tender, no hernia, no masses, and c/s is low transverse on abd. wall PELVIC: external genitalia normal, normal Bartholin's glands, urethra, Souder[place]'s glands, no vulvar lesions, no cervical lesions, [...] found at time of surgery may need chauffeur onc to do staging later. Elects for TLH, LSO, right salpingectomy and cyso locally. D/w her short and supervisor intermediates risks. D/w her that this may not resolve pain/dysparuenia but seems clinically her uterus and ovary are most of her pain on exam. Cont. FE infusions and aygestin to control bleeding until surgery. reviewed CBC/TSH/US/PAP/HRHPV Tim Yip MD . documented in this encounterUniversity Hospitals Geneva Medical Center04-01-2025 Telephone encounter Note * Telephone Encounter - Adelina Elmore LISW - 02/22/2025 11:06 AM EDT Pt noted on [facility] 1st time treatment report. Pt has a non-oncology regimen. No social work followup indicated. DASH Montes [facility]04-01-2025 Miscellaneous Notes* Telephone Encounter - Adelina Elmore LISW - 02/22/2025 11:06 AM EDT Pt noted on [facility] 1st time treatment report. Pt has a non-oncology regimen. No social work followup indicated. DASH Montes documented in this encounterUniversity Hospitals Geneva Medical Center03-27-2025 Instructions* Patient Instructions* Tanya Vernon APRN.CNP - 02/17/2025 7:43 AM EDT Schedule MRI, MRA, and MRV brain. Consult placed to ophthalmology to evaluate for papilledema if you are unable to schedule alessandra withyour current provider. Begin Zonegran 50mg once daily at bedtime. documented in this encounterUniversity Hospitals Geneva Medical Center03-27-2025 History of Present illness Narrative* Tanya Vernon APRN.CNP - 02/17/2025 7:00 AM EDT Images from the original note were not included. [facility] Neurologic [place] Follow-up Visit Follow-up note February 17, 2025 [...] intracranial hypertension. HSAT also ordered (as untreated SRAAN may exacerbate migraines and ICP) and pt [...] SE even with 50mg dose and would preferto trial alternative medication. On further discussion she reports that Topamax managed symptoms inthe past upon initial diagnosis and she tolerated medication well without SE. Reports medication was discontinued due to and was not restarted after. After discussion she would like to transition from Zonegran to Topamax. On review of chart appears she was taking 50mg Topamax BID in past.Will transition and titrate up slowly to 50mg BID. If at any time headaches worsen she is aware sheis to notify office. Had her last LP [...] HAMMOND behind R eye; stabbing. Also in yazidism. + photophobia. Head feels heavy. Tinnitus in [...] hours. Relieves sharp stabbing. Was taking daily forabout one year. Last eye appt was 03/2024. [...] ONLY 07/07/2017 LIGATE FALLOPIAN TUBE 2017 at [facility] PAST SURGICAL HISTORY OF 08/2000 TENDON REPAIR [...] interview and examination showed normal level of consciousness,orientation, language, memory, praxis, and higher intellectual function [...] Routine noncontrast MRI protocol including diffusion images. Capp-mg-jgwdkz MRV without contrast was also obtained with [...] and narrowing of the dural venous sinuses. Podiatrist Assistant: JACKIE Transcribe Date/Time: May 13 2022 10:36A [...] Zonegran to Topamax 50mg BID. No further followup at that time. At time of appointment today she reports worsening of headaches over the past 6- 12 months (stopped TPX due to SE). Headaches are occurring daily and can last all day. Headaches are localized to R retro-orbital/temporal region. She reports associated photophobia, occasional dizziness, and occasionalvisual disturbance described as starbursts. She denies blurred vision, double vision, photophobia, N/V. She does endorse L pulsatile tinnitus worse when supine. She also reports paralysis of L face and L facial twitching. Notably, headaches improve when supine. Given history of IIH, concern at thistime would be for increased ICP. However, she denies blurred vision, headaches improve when supine,tinnitus is unilateral, and L facial paralysis which [...] WO IVCON CONSULT TO OPHTHALMOLOGY Tanya Vernon APRN.GROUP FITNESS ASSISTANT DEPARTMENT HEAD I spent a total of 40 minutes on the date of the service which included preparing to see the patient, [id number] patient care, completing clinical documentation, obtaining and/or reviewing separately obtained history, performing a medically appropriate examination, counseling and educating the pat ient/family/caregiver, and ordering medications, tests, or procedures. documented in this encounterUniversity Hospitals Geneva Medical Center03-27-2025 NoteHNO ID: [id number] Author: TANYA VERNON APRN.GROUP FITNESS ASSISTANT DEPARTMENT HEAD Service: ? Author Type: Nurse Practitioner Type: Progress Notes Filed: 02/17/2025 07:43 Note Text: [facility] Neurologic [place] Follow-up Visit Follow-up note February 17, 2025 [...] HAMMOND behind R eye; stabbing. Also in yazidism. + photophobia. Head feels heavy. Tinnitus in [...] ONLY 07/07/2017 LIGATE FALLOPIAN TUBE 2017 at [facility] PAST SURGICAL HISTORY OF 08/2000 TENDON REPAIR RIGHT WRIST STRESS ECHO 02/13/2021 normal TONSILLECTOMY PRIMARY/SECONDARY To (more content not included)...[facility]03-25-2025 Telephone encounter Note* Telephone Encounter - Merlene Pineda - 02/15/2025 1:53 PM EDT Scheduled patient with neurology PAUL at [facility] on 02/17/25. Please notify patient if scheduled incorrectly and needs to be seen elsewhere. [facility]03-25-2025 Miscellaneous Notes* Telephone Encounter - Merlene Pineda - 02/15/2025 1:53 PM EDT Scheduled patient with neurology PAUL at [facility] on 02/17/25. Please notify patient if scheduled incorrectly and needs to be seen elsewhere. * Telephone Encounter - Shalonda Guerrero LPN - 02/15/2025 1:29 PM EDT Patient calling to reschedule her appt with Neurology if possible to see someone on 02/18/2025. Assisted with transfer to automotive glazier to get appt set up. * Telephone Encounter - Raquel Shannon - 02/15/2025 1:07 PM EDT LVM for the patient about canceled appt. gave the patient ph# [phone] to call to reschedule appt Sent the patient a Buysighthart message. documented in this encounterUniversity Hospitals Geneva Medical Center03-25-2025 Telephone encounter Note * Telephone Encounter - Shalonda Guerrero LPN - 02/15/2025 1:29 PM EDT Patient calling to reschedule her appt with Neurology if possible to see someone on 02/18/2025. Assisted with transfer to automotive glazier to get appt set up. [facility]03-25-2025 Telephone encounter Note* Telephone Encounter - Raquel Shannon - 02/15/2025 1:07 PM EDT LVM for the patient about canceled appt. gave the patient ph# [phone] to call to reschedule appt Sent the patient a MyChart message. [facility] Work Phone: [phone] NoteHNO ID: [id number] Author: PETRA GRANT, ? Service: ? Author [...] 1 pad/hr. Passing large clots. Following with MECHANIC ASSISTANT. She is on norethindrone in efforts to [...] Paternal Grandmother other (Other) Paternal Grandmother No breast/chauffeur cancer Aneurysm Paternal Grandfather other (cask gene [...] Date Value Ref Ran (more content not included)...[facility] 02-10-2025 History of Present illness Narrative* Petra Grant - 02/10/2025 10:12 AM EDT Progress Note Michael Castro 1985 Encounter date: [...] 1 pad/hr. Passing large clots. Following with MECHANIC ASSISTANT. She is on norethindrone in efforts to [...] personal or family hx of blood disorders orcancers. No PAST MEDICAL HISTORY Diagnosis Date Acute [...] Paternal Grandmother other (Other) Paternal Grandmother No breast/chauffeur cancer Aneurysm Paternal Grandfather other (cask gene [...] Iron deficiency anemia - Hgb 10.1 on 01/31/25 - likely due to chronic blood loss associated with menorrhagia, malabsorption - has been iron deficient for several years, unable to tolerate PO iron due to GI side effects - following with MECHANIC ASSISTANT for bleeding - encouraged screening scopes when able - plan for IV iron sucrose 200mg x5 - discussed possible need to repeat series due to ongoing bleeding and severity of iron deficiency,pt acknowledged - advised to call with any questions or concerns. Petra Grant APRN.GROUP FITNESS ASSISTANT DEPARTMENT HEAD I spent a total of 45 minutes on the date of the service which included preparing to see the patient, krag-na-ynat patient care, completing clinical documentation, obtaining and/or [...] evaluation of this patient. documented in this encounterUniversity Hospitals Geneva Medical Center03-19-2025 NoteHNO ID: [id number] Author: AMARIS HOPPER RN Service: ? Author Type: Registered Nurse Type: Progress Notes Filed: 02/09/2025 09:39 Note Text: Blood Management referred on 02/03/2025 - patient has appointment with hematology on 02/10/2025. Anemia management will be deferred to hematology per Blood Management guidelines. Referral closed.[facility]03-19-2025 History of Present illness Narrative* Amaris Hopper RN - 02/09/2025 9:38 AM EDT Blood Management referred on 02/03/2025 - patient has appointment with hematology on 02/10/2025. Anemia management will be deferred to hematology per Blood Management guidelines. Referral closed. documented in this encounterUniversity Hospitals Geneva Medical Center03-13-2025 NoteHNO ID: [id number] Author: MINE DOTY MD Service: ? Author [...] Living2 SAB1 IAB0 Ectopic0 Multiple0 Live Births2 Eeg Technologist History LMP: 01/18/2025 (Exact Date), Having periods Age at Menarche: 8 Age at First : Age at Menopause: Eeg Technologist History Comments: Sexual Activity: Yes; Male; one [...] Paternal Grandmother other (Other) Paternal Grandmother No breast/chauffeur cancer Aneurysm Paternal Grandfather other (cask gene [...] discussed with the Patient or Patient's Authorized Director Of Human Resources. As applicable, any other physician, advance practice provider, medical student, or other health professional student that will be observing or involved in the sensitive examination for educational or training purposes was discussed with the Patient or Authorized Director Of Human Resources. The Patient or Authorized Director Of Human Resources has agreed to proceed with the sensitive [...] external genitalia normal, normal Bartholin's glands, urethra, Souder[place]'s glands, no vulvar lesions, no cervical lesions, [...] - reviewed pelvic U (more content not included)...[facility]03-13-2025 History of Present illness Narrative* Mine Doty MD - 02/03/2025 9:23 AM EDT Maya is a 39 year old who presents for a pap and follow up. HPI: Patient states she is unable to tolerate PO iron. She has tried different formulations in the past. Patient reports pelvic pain in addition to her heavy menses. OB History Gravida4 Para2 Term1 Preterm1 AB2 Living2 SAB1 IAB0 Ectopic0 Multiple0 Live Births2 Eeg Technologist History LMP: 01/18/2025 (Exact Date), Having periods Age at Menarche: 8 Age at First : Age at Menopause: Eeg Technologist History Comments: Sexual Activity: Yes; Male; one [...] Paternal Grandmother other (Other) Paternal Grandmother No breast/chauffeur cancer Aneurysm Paternal Grandfather other (cask gene [...] discussed with the Patient or Patient's Authorized Director Of Human Resources. As applicable, any other physician, advance practice provider, medical student, or other health professional student that will be observing or involved in the sensitive examination for educational or training purposes was discussed with the Patient or Authorized Director Of Human Resources. The Patient or Authorized Director Of Human Resources has agreed to proceed with the sensitive [...] external genitalia normal, normal Bartholin's glands, urethra, Souderton's glands, no vulvar lesions, no cervical lesions, [...] needed. Mine Doty MD documented in this encounterUniversity Hospitals [facility]03-11-2025 Telephone encounter Note * Telephone Encounter - Renae Evans LPN - 02/01/2025 2:12 PM EDT Pt notified of results and instructions. Renae Evans LPN [facility]03-11-2025 Miscellaneous Notes* Telephone Encounter - Renae Evans LPN - 02/01/2025 2:12 PM EDT Pt notified of results and instructions. Renae Evans LPN * Telephone Encounter - Shena Dwyer PA-C - 02/01/2025 1:24 PM EDT Breann was negative. Continue as previously discussed. * Telephone Encounter - Renae Evans LPN - 02/01/2025 11:33 AM EDT Pt notified of results with verbalized understanding. Renae Evans LPN * Telephone Encounter - Shena Dwyer PA-C - 02/01/2025 10:28 AM EDT Hemoglobin has improved some. Still anemic. Cholesterol is okay. A1c is normal at 5.6%. this has improved since previous lab checks. Metabolic panel is normal Vitamin levels are wnl. There's one lab that I'm waiting on yet. Thanks. Shena Dwyer PA-C documented in this encounterUniversity Hospitals Geneva [facility] Center03-11-2025 Telephone encounter Note * Telephone Encounter - Shena Dwyer PA-C - 02/01/2025 1:24 PM EDT Breann was negative. Continue as previously discussed. [facility] Work Phone: [phone]) 265-862203-11-2025 Telephone encounter Note* Telephone Encounter - Renae Evans LPN - 02/01/2025 11:33 AM EDT Pt notified of results with verbalized understanding. Renae Evans LPN [facility]03-11-2025 Telephone encounter Note* Telephone Encounter - Shena Dwyer PA-C - 02/01/2025 10:28 AM EDT Hemoglobin has improved some. Still anemic. Cholesterol is okay. A1c is normal at 5.6%. this has improved since previous lab checks. Metabolic panel is normal Vitamin levels are wnl. There's one lab that I'm waiting on yet. Thanks. Shena Dwyer PA-C [facility]03-10-2025 Telephone encounter Note* Telephone Encounter - Kala Kay - 01/31/2025 12:29 PM EDT This has been scheduled for02/10, date and time per pt. Kala Kay [facility]03-10-2025 Miscellaneous Notes* Telephone Encounter - Kala Kay - 01/31/2025 12:29 PM EDT This has been scheduled for02/10, date and time per pt. Kala Kay * Telephone Encounter - Ankur Sears PSS - 01/31/2025 11:39 AM EDT Patient was referred to Hematology by Shena Dwyer for Iron deficiency anemia, unspecified irondeficiency anemia type [D50.9]; Weight loss [R63.4]. Please advise. documented in this encounterUniversity Hospitals Geneva [facility] Center03-10-2025 Telephone encounter Note * Telephone Encounter - Ankur Sears PSS - 01/31/2025 11:39 AM EDT Patient was referred to Hematology by Shena Dwyer for Iron deficiency anemia, unspecified irondeficiency anemia type [D50.9]; Weight loss [R63.4]. Please advise. [facility]03-10-2025 NoteHNO ID: [id number] Author: SHENA DWYER PA-C Service: ? Author Type: Physician Core Manager Type: Progress Notes Filed: 01/31/2025 11:52 Note [...] US showed fibroids. Has follow up with chauffeur Previously saw rheumatology but that was over [...] Paternal Grandmother other (Other) Paternal Grandmother No breast/chauffeur cancer Aneurysm Paternal Grandfather other (cask gene [...] External ears normal, canals clear, TMs pearly barntet. Nose/Sinuses: Nares normal, septum midline, mucosa normal, no drainage or sinus tenderness. Oropharynx: Lips, mucosa, and tongue normal, teeth and gums normal, oropharynx normal. Neck: Supple, no adenopathy; thyroid symmetric, normal size, no bruits. Lungs: Lungs clear to auscultation. No wheezing, rhonchi, rales.. Hea (more content not included)...[facility]03-10-2025 History of Present illness Narrative* Shena Dwyer PA-C - 01/31/2025 11:05 AM EDT Chief Complaint Patient presents with: Yearly Exam HPI Michael Castro is a 39 year old female who presents here today for physical. Patient with hx as below. Recently saw PCP and was referred to ortho. Injection was done last week. Has been dealing with chronic fatigue. Ready to come up with a definitive cause and plans to followup on the testing. Recent labs +anemia. Recently told to start iron. However she has never been able to tolerate oral iron. Being worked up for frequent heavy menstrual bleeding. Recent US showed fibroids. Has follow up with chauffeur Previously saw rheumatology but that was over [...] Paternal Grandmother other (Other) Paternal Grandmother No breast/chauffeur cancer Aneurysm Paternal Grandfather other (cask gene [...] in no acute distress, well-hydrated, well nourished. andObese. Skin: Skin color, texture, turgor normal, no [...] Abs Lymph 1.00 - 4.00 k/uL 2.16 [place]% % 6.9 Abs [place] <0.87 k/uL 0.59 Eosin% % 1.8 Abs [...] cardiovascular disease - ICD9: V77.91, V81.2, ICD10: Z13.220,Z13.6 - LIPID PANEL, NONFASTING 13. Weight loss - ICD9: 783.21, ICD10: R63.4 - CONSULT TO GENERAL SURGERY 14. Pseudotumor cerebri - ICD9: 348.2, ICD10: G93.2 Continue with neuro. FMLA for intermittent leave filled out for patient's multiple specialty appointments. Shena Dwyer PA-C documented in this encounterUniversity Hospitals Geneva Medical Center03-06-2025 Radiology Diagnostic study note [facility] Imaging Services [address] [place] [address] Inj/Asp Jarett Jt Should/Hip/Knee MR#: [id number] Acct: [id number] Name: MICHAEL CASTRO Rep #: [id number] : 1985 F 39 From: Jen Cloud MD PCP: Care Physician,No Primary Status: REG CLI Study:Inj/Asp Jarett Jt Should/Hip/Knee Date of Exam: 01/27/25 Exam# [id number] Ordering Dr: Montez Brownlee MD PROCEDURE: RIGHT [...] Thank you for this referral. Reading Location: [place] [address] CC: Dr. Erick Brownlee MD; No Primary Care Physician ~ Podiatrist Assistant: Signed [facility]03-03-2025 NoteHNO ID: [id number] Author: ELA CROFT MD Service: ? Author Type: Physician Type: Progress Notes Filed: 01/24/2025 14:57 Note Text: Michael Castro is a 39 year old female who presented for chauffeur ultrasound today. Encounter Diagnosis ICD-10-CM 1. Abnormal uterine bleeding (AUB) N93.9 Please see report under imaging tab. Ela Croft MD January 24, 2025 2:[address] [facility]03-03-2025 History of Present illness Narrative * Ela Croft MD - 01/24/2025 2:54 PM EST Michael Castro is a 39 year old female who presented for chauffeur ultrasound today. Encounter Diagnosis ICD-10-CM 1. Abnormal uterine bleeding (AUB) N93.9 Please see report under imaging tab. Ela Croft MD January 24, 2025 2:54 PM documented in this encounterUniversity Hospitals Geneva Medical Center02-27-2025 NoteHNO ID: [id number] Author: MINE DOTY MD Service: ? Author [...] Living2 SAB1 IAB0 Ectopic0 Multiple0 Live Births2 Eeg Technologist History LMP: 01/18/2025 (Exact Date), Having periods Age at Menarche: 8 Age at First : Age at Menopause: Eeg Technologist History Comments: Sexual Activity: Yes; Male; one [...] Paternal Grandmother other (Other) Paternal Grandmother No breast/chauffeur cancer Aneurysm Paternal Grandfather other (cask gene [...] Making Level: 4 - Moderate Mine Doty [facility]02-27-2025 History of Present illness Narrative* Mine Doty MD - 01/20/2025 8:27 AM EST Michael Castro is a 39 year old female who presents for problem visit. HPI: Patient presents with menses concerns. Last 2 menses were 2/ and then 01/17. Menses are about every 3 weeks since July. Menses last about 5 days. Flow is heavy and she changes a pad every 2-4 hours. Patient also reports pain with menses and orgasm. She reports feeling drained. Her iron levels are low. OB History Gravida4 Para2 Term1 Preterm1 AB2 Living2 SAB1 IAB0 Ectopic0 Multiple0 Live Births2 Eeg Technologist History LMP: 01/18/2025 (Exact Date), Having periods Age at Menarche: 8 Age at First : Age at Menopause: Eeg Technologist History Comments: Sexual Activity: Yes; Male; one [...] Paternal Grandmother other (Other) Paternal Grandmother No breast/chauffeur cancer Aneurysm Paternal Grandfather other (cask gene [...] Moderate Mine Doty MD documented in this encounterUniversity Hospitals Geneva Medical Center02-11-2025 NoteHNO ID: [id number] Author: MAGGI STALLINGS MA Service: ? Author Type: Spanish Speaking Nanny Type: Progress Notes Filed: 01/17/2025 12:57 Note Text: Referral done in computer. Order faxed to [facility] pharmacy, radiology, and scheduling.[facility]02-11-2025 History of Present illness Narrative* Maggi Stallings MA - 01/04/2025 8:21 AM EST Referral done in computer. Order faxed to [facility] pharmacy, radiology, and scheduling. * Erick Brownlee MD - 01/03/2025 2:16 PM EST Erick Brownlee MD Department [facility]opaedics [facility] [address] [facility] [address] Dept: [phone] Dept January 03, 2025 CHIEF COMPLAINT: New and Pain of the Right Hip (Referred by Dr Cruz /Last seen 07/11/14 Right ankle and hip pain) HPI Patient here for evaluation right hip pain. Patient states her pain is on the lateral aspect. Some days her hips are tight that she has difficulty sitting. 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 She does do a lot of heavy lifting at work. Her 16 year old daughter is a special needs child that weighs 88 pounds and has difficulty carrying her. Taking Mobic for the painand feels helps her pain some. Feels it [...] encounter diagnosis), patient to schedule visit as perfollow up discussed. Ms. Michael Castro was advised [...] IMAGING: Impression IMPRESSION: No acute osseous abnormality Podiatrist Assistant: [facility] Transcribe Date/Time: Dec 30 2024 1:52P Dictated [...] Paternal Grandmother other (Other) Paternal Grandmother No breast/chauffeur cancer Aneurysm Paternal Grandfather other (cask gene [...] anxiety) Erick Brownlee MD documented in this encounterUniversity Hospitals Geneva Medical Center02-10-2025 NoteHNO ID: [id number] Author: ERICK BROWNLEE MD Service: ? Author Type: Physician Type: Progress Notes Filed: 01/17/2025 12:57 Note Text: Erick Brownlee MD Department of Orthopaedics Orthopaedics [address] [place] [address] Dept: [phone] Dept January 03, 2025 CHIEF COMPLAINT: New and Pain of the Right Hip (Referred by Dr Cruz /Last seen 07/11/14 Right ankle and hip pain) HPI Patient here for evaluation right hip pain. Patient states her pain is on the lateral aspect. Some days her hips are tight that she has difficulty sitting. 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 [...] IMAGING: Impression IMPRESSION: No acute osseous abnormality Podiatrist Assistant: JACKIE Transcribe Date/Time: Dec 30 2024 1:52P Dictated by : LILIYA DENTON MD This examination was interpreted and the report reviewed and electronically signed by: LILYIA DENTON MD on Dec 30 2024 1:54PM [...] Paternal Grandmother other (Other) Paternal Grandmother No breast/chauffeur cancer Aneurysm Paternal Grandfather other (cask gene mutation) Daughter Coronary Artery (more content not included)...[facility] 12-31-2024 Telephone encounter Note* Telephone Encounter - Dilan Jones RN - 12/31/2024 8:42 AM EST PATIENT NOTIFIED OF INFORMATION [facility]02-07-2025 Miscellaneous Notes* Telephone Encounter - Dilan Jones RN - 12/31/2024 8:42 AM EST PATIENT NOTIFIED OF INFORMATION * Telephone Encounter - Renae Evans LPN - 12/31/2024 8:38 AM EST Left message for pt to contact office. Renae Evans LPN * Telephone Encounter - Sanket Cruz MD - 12/30/2024 8:41 PM EST Let patient know the hip x-ray shows mild arthritis. documented in this encounterUniversity Hospitals Geneva Medical Center02-07-2025 Telephone encounter Note * Telephone Encounter - Renae Evans LPN - 12/31/2024 8:38 AM EST Left message for pt to contact office. Renae Evans LPN [facility]02-06-2025 Telephone encounter Note* Telephone Encounter - Sanket Cruz MD - 12/30/2024 8:41 PM EST Let patient know the hip x-ray shows mild arthritis. [facility]02-04-2025 History of Present illness Narrative* Sara Canales RT(R) - 12/28/2024 2:20 PM EST Radiology Service Progress Note PATIENT NAME: Michael Castro DATE OF SERVICE: December 28, 2024 TIME: 2:17 PM PATIENT IDENTITY VERIFICATION COMPLETED USING TWO (2) IDENTIFIERS: Name and Date of confirmedby patient verbally. FALL SCREENING: Has the patient had 2 falls in the last year or 1 fall with injury or currently using an Ambulatory Assistive Device (Walker, Cane, Wheelchair, Crutches, etc.)? No PATIENT GENDER DATA: Assigned female at . status: : No status:NO. PATIENT RELEVANT IMPLANT DATA REVIEWED: Not Applicable PATIENT PRESENTS WITH AN IMPLANTABLE OR ATTACHED TECHNICAL COMMUNICATOR: No RADIOLOGY DEPARTMENT: General X-ray: Exam(s) Completed: Pelvis X-Ray: Pelvis with Hip Right PERIPHERAL IV DATA: Not applicable SIGNED BY: RT Kristy(Dana) December 28, 2024 2:17 PM documented in this encounterUniversity Hospitals Geneva Medical Center02-04-2025 NoteHNO ID: [id number] Author: SARA CANALES RT(R) Service: Radiology Author Type: Technologist Type: Progress [...] PATIENT PRESENTS WITH AN IMPLANTABLE OR ATTACHED TECHNICAL COMMUNICATOR: No RADIOLOGY DEPARTMENT: General X-ray: Exam(s) Completed: Pelvis X-Ray: Pelvis with Hip Right PERIPHERAL IV DATA: Not applicable SIGNED BY: Sara Canales, RT(R) December 28, 2024 2:[address] [facility]01-09-2025 History of Present illness Narrative* Sanket Cruz MD - 12/02/2024 11:00 AM EST Chief Complaint No chief complaint on file. [...] Paternal Grandmother other (Other) Paternal Grandmother No breast/chauffeur cancer Aneurysm Paternal Grandfather other (cask gene [...] Vaccine(1) due on 07/25/2024 Covid-19 Vaccine(3 - season) due on 07/25/2024 Mammogram Screening due [...] f/u Sanket Cruz MD documented in this encounterUniversity Hospitals Geneva Medical Center01-09-2025 NoteHNO ID: [id number] Author: SANKET CRUZ MD Service: ? Author [...] Paternal Grandmother other (Other) Paternal Grandmother No breast/chauffeur cancer Aneurysm Paternal Grandfather other (cask gene [...] Influenza Vaccine(1) due on 07/25/2024 Covid-19 Vaccine( season) due on 07/25/2024 Mammogram Screening due [...] Discussed importance o (more content not included)... [facility]12-12-2024 Telephone encounter Note* Telephone Encounter - Scott Patterson MA - 11/04/2024 9:53 AM EST Pt notified and verbalized understanding Scott Patterson MA [facility]12-12-2024 Miscellaneous Notes* Telephone Encounter - Scott Patterson MA - 11/04/2024 9:53 AM EST Pt notified and verbalized understanding Scott Patterson MA * Telephone Encounter - Funmilayo Davies APRN.CNP - 11/04/2024 8:55 AM EST Please let patient know her mammogram shows a stable cyst. 6 month follow up recommended. I have placed order for patient to schedule. documented in this encounterUniversity Hospitals Geneva Medical Center12-12-2024 Telephone encounter Note * Telephone Encounter - Funmilayo Davies APRN.CNP - 11/04/2024 8:55 AM EST Please let patient know her mammogram shows a stable cyst. 6 month follow up recommended. I have placed order for patient to schedule. [facility]12-11-2024 NoteHNO ID: [id number] Author: QI LAWSON RDMS Service: ? Author Type: Blackener Type: Progress Notes Filed: 11/03/2024 10:09 Note [...] PATIENT PRESENTS WITH AN IMPLANTABLE OR ATTACHED TECHNICAL COMMUNICATOR: No RADIOLOGY DEPARTMENT: Ultrasound PERIPHERAL IV DATA: Not applicable SIGNED BY: Qi Lawson RDMS November 03, 2024 10:09 [facility]12-11-2024 NoteHNO ID: [id number] Author: TANYA HERRERA RT(R) Service: ? Author [...] PATIENT PRESENTS WITH AN IMPLANTABLE OR ATTACHED TECHNICAL COMMUNICATOR: No RADIOLOGY DEPARTMENT: Mammography PERIPHERAL IV DATA: Not applicable SIGNED BY: RT Karely(R) November 03, 2024 8:23 [facility]11-27-2024 NoteHNO ID: [id number] Author: CHAPO SHORE MD Service: ? Author [...] for fever. Monitor for additional symptoms. Chapo Shore, [facility]11-27-2024 History of Present illness Narrative* Chapo Shore MD - 10/20/2024 1:46 PM EST Patient presents with: Ear Pain: right x [...] symptoms. Chapo Shore MD documented in this encounterUniversity Hospitals Geneva Medical Center05-21-2024 Telephone encounter Note * Telephone Encounter - Karyn Lerma LPN - 04/13/2024 10:51 AM EDT Phoned patient and updated her on results and recommendations. Patient voiced understanding. [facility]05-21-2024 Miscellaneous Notes* Telephone Encounter - Karyn Lerma LPN - 04/13/2024 10:51 AM EDT Phoned patient and updated her on results and recommendations. Patient voiced understanding. * Telephone Encounter - Funmilayo Davies APRN.CNP - 04/13/2024 10:09 AM EDT Please let patient know her mammogram is negative for malignancy, but does show cyst as identified in previous mammograms. It is recommended patient have mammogram and US in 6 months. documented in this encounterUniversity Hospitals Geneva Medical Center05-21-2024 Telephone encounter Note * Telephone Encounter - Funmilayo Davies APRN.CNP - 04/13/2024 10:09 AM EDT Please let patient know her mammogram is negative for malignancy, but does show cyst as identified in previous mammograms. It is recommended patient have mammogram and US in 6 months. [facility]05-21-2024 History of Present illness Narrative* Jeana Flores RDMS - 04/13/2024 8:30 AM EDT Radiology Service Progress Note PATIENT NAME: Michael Castro DATE OF SERVICE: April 13, 2024 TIME: 2:15 PM PATIENT IDENTITY VERIFICATION COMPLETED USING TWO (2) IDENTIFIERS: Name and Date of confirmedby patient verbally. FALL SCREENING: Has the patient had 2 falls in the last year or 1 fall with injury or currently using an Ambulatory Assistive Device (Walker, Cane, Wheelchair, Crutches, etc.)? No PATIENT GENDER DATA: Female. status: : No status: NO. PATIENT RELEVANT IMPLANT DATA REVIEWED: Not Applicable PATIENT PRESENTS WITH AN IMPLANTABLE OR ATTACHED TECHNICAL COMMUNICATOR: No RADIOLOGY DEPARTMENT: Ultrasound PERIPHERAL IV DATA: Not applicable SIGNED BY: Jeana Flores RDMS RVT April 13, 2024 2:15 PM documented in this encounterUniversity Hospitals Geneva Medical Center05-21-2024 History of Present illness Narrative* Ginny Tijerina Mammo Tech - 04/13/2024 8:00 AM EDT Radiology Service Progress Note PATIENT NAME: Michael Castro DATE OF SERVICE: April 13, 2024 TIME: 8:31 AM PATIENT IDENTITY VERIFICATION COMPLETED USING TWO (2) IDENTIFIERS: Name and Date of confirmedby patient verbally. FALL SCREENING: Has the patient had 2 falls in the last year or 1 fall with injury or currently using an Ambulatory Assistive Device (Walker, Cane, Wheelchair, Crutches, etc.)? No PATIENT GENDER DATA: Female. status: : No status: NO. PATIENT RELEVANT IMPLANT DATA REVIEWED: Not Applicable PATIENT PRESENTS WITH AN IMPLANTABLE OR ATTACHED TECHNICAL COMMUNICATOR: No RADIOLOGY DEPARTMENT: Mammography PERIPHERAL IV DATA: Not applicable SIGNED BY: Karen Tracy April 13, 2024 8:31 AM documented in this encounterUniversity Hospitals Geneva Medical Center11-16-2023 Miscellaneous Notes* Telephone Encounter - Lennie Yost RN - 10/09/2023 10:49 AM EST Pt returned call and notified that orders are placed to repeat mammo/ultrasound in 6 months. Given phone # to call and schedule. * Telephone Encounter - Lennie Lr LPN - 10/09/2023 10:40 AM EST TC to pt. LM to call office, ask for triage nurse to get results. Lennie Lr LPN * Telephone Encounter - Sanket Cruz MD - 10/09/2023 10:25 AM EST Let patient know I apologies. I did not see the amendment. So thank her for pointing this out. I have placed orders o poncho a repeat mammogram and US in 6 months of the left breast. * Telephone Encounter - Renae Evans LPN - 10/09/2023 9:43 AM EST Pt notified of same. States after she got home she got a call from the [facility] advising that the radiologist had changed his mind and was wanting to recheck again in 6 months. He was going to put an addendum in so Dr Cruz could place orders. Advised pt she would be contacted once Dr Cruz reviews this. Renae Evans LPN * Telephone Encounter - Sanket Cruz MD - 10/08/2023 1:32 PM EST Let patient know the additional images of the left breast showed a benign breast tissue. Can returnto normal yearly Mammos. documented in this encounterUniversity Hospitals Geneva Medical Center11-15-2023 History of Present illness Narrative* Qi Lawson RDMS - 10/08/2023 9:30 AM EST Radiology Service Progress Note PATIENT NAME: Michael Castro DATE OF SERVICE: October 08, 2023 TIME: 9:55 AM PATIENT IDENTITY VERIFICATION COMPLETED USING TWO (2) IDENTIFIERS: Name and Date of confirmedby patient verbally. FALL SCREENING: Has the patient [...] 08, 2023 9:55 AM documented in this encounterUniversity Hospitals Geneva Medical Center11-15-2023 History of Present illness Narrative* Tanya Herrera RT(R) - 10/08/2023 9:00 AM EST Radiology Service Progress Note PATIENT NAME: Michael Castro DATE OF SERVICE: October 08, 2023 TIME: 8:57 AM PATIENT IDENTITY VERIFICATION COMPLETED USING TWO (2) IDENTIFIERS: Name and Date of confirmedby patient verbally. FALL SCREENING: Has the patient had 2 falls in the last year or 1 fall with injury or currently using an Ambulatory Assistive Device (Walker, Cane, Wheelchair, Crutches, etc.)? No PATIENT GENDER DATA: Female. status: : No status: NO. PATIENT RELEVANT IMPLANT DATA REVIEWED: Not Applicable RADIOLOGY DEPARTMENT: Mammography PERIPHERAL IV DATA: Not applicable SIGNED BY: RT Karely(R) October 08, 2023 8:57 AM documented in this encounterUniversity Hospitals Geneva Medical Center10-24-2023 Miscellaneous Notes* Telephone Encounter - Yady Quezada RN - 09/16/2023 8:50 AM EDT Pt called and is notified of providers results and instructions. Pt voices understanding. Transferred to scheduled to set up appt for L breast US and diagnostic. Yady Quezada, RN * Telephone Encounter - Sanket Cruz MD - 09/16/2023 8:36 AM EDT Let patient know mammogram shows an asymmetry in the left breast and needs additional testing. Orders placed. documented in this encounterUniversity Hospitals Geneva Medical Center10-24-2023 Miscellaneous Notes* Letter - Coordinator, Mammography - 09/16/2023 7:40 AM EDT September 16, 2023 PID: [id number] Michael Castro [address] [place] [address] Dear Ms. Castro, Your recent breast imaging [...] dense breast tissue in addition to other riskfactors. If you have a healthcare provider who ordered/prescribed your screening mammogram: Please call [phone] or [phone] to schedule an appointment for your additional imaging (if youhave not already done so). If you DO [...] and reports are kept on file at [facility] as part of your permanent medical record, and are available for your continuing care. Thank you for allowing us to help in meeting your health care needs. Sincerely, Dr. Dangelo Interpreting Radiologist [facility] (Additional imaging) documented in this encounterUniversity Hospitals Geneva Medical Center10-23-2023 History of Present illness Narrative* Ginny Tijerina [employer] - 09/15/2023 2:30 PM EDT Radiology Service Progress Note PATIENT NAME: Michael Castro DATE OF SERVICE: September 15, 2023 TIME: 2:23 PM PATIENT IDENTITY VERIFICATION COMPLETED USING TWO (2) IDENTIFIERS: Name and Date of confirmedby patient verbally. FALL SCREENING: Has the patient had 2 falls in the last year or 1 fall with injury or currently using an Ambulatory Assistive Device (Walker, Cane, Wheelchair, Crutches, etc.)? No PATIENT GENDER DATA: Female. status: : No status: NO. PATIENT RELEVANT IMPLANT DATA REVIEWED: Not Applicable RADIOLOGY DEPARTMENT: Mammography PERIPHERAL IV DATA: Not applicable SIGNED BY: Ginny Tijerina [employer] Mahnaz September 15, 2023 2:23 PM Electronically signed by Ginny Tijerina [employer] at 09/15/2023 2:38 PM EDT documented in this encounterUniversity Hospitals [facility]12-27-2022 Miscellaneous Notes* Telephone Encounter - Hollie Chamberlain MA - 11/19/2022 9:21 AM EST Pharmacy escripts requesting the following refill: Requested Prescriptions Pending Prescriptions Disp Refills topiramate (TOPAMAX) 25 mg tablet [Pharmacy Med Name: TOPIRAMATE 25 MG TABLET] 60 tablet 2 Sig: TAKE 1 TABLET BY MOUTH TWICE DAILY. START TOPAMAX AFTER STOPPING ZONEGRAN. Please review. JONES: 08/15/2022 NOV: None. Hollie Chamberlain CMA documented in this encounterUniversity Hospitals Geneva Medical Center12-16-2022 Miscellaneous Notes* Telephone Encounter - Aliza Peoples Ma - 11/08/2022 2:59 PM EST Patient was notified Aliza Peoples Ma * Telephone Encounter - Sanket Cruz MD - 11/08/2022 2:30 PM EST Let patient know I sent two ea [...] days Sanket Cruz MD documented in this encounterUniversity Hospitals Geneva Medical Center12-01-2022 Instructions* Patient Instructions* Sanket Cruz MD - 10/24/2022 11:15 AM EST Please get iron labs drawn on or after 11/24/2022. Do not need to fast. Start taking your Iron every other day. Please get labs done on or after 04/11/2023 prior to your next visit. documented in this encounterUniversity Hospitals Geneva Medical Center12-01-2022 History of Present illness Narrative* Sanket Cruz MD - 10/24/2022 10:20 AM EST Chief Complaint Patient presents with: Physical HPI Michael Castro is a 37 year old female who presents here today for Physical. Patient with hx of pseudotumor cerebri, MPV, inflammatory polyarthropathy (used to see Dr. Richardson), low Iron, elevated A1c, anxiety with Depression, GERD, low iron, morbid obesity, Vit D def as wellas those reviewed and addressed below and in [...] Paternal Grandmother other (Other) Paternal Grandmother No breast/chauffeur cancer Aneurysm Paternal Grandfather other (cask gene [...] in no acute distress, well-hydrated, well nourished. andMorbidly obese. Skin: Skin color, texture, turgor normal, [...] symmetric. Sensation to light touch and crainal nerves2-12 intact.. Health Maintenance List HEPATITIS B(1 of [...] 1.00 - 4.00 k/uL 3.01 5.06 (H) [place]% % 5.1 5.4 Abs [place] <0.87 k/uL 0.42 0.71 Eosin% % 2.3 [...] diet of 1000 mg/day for under 50, 1200- 1500 mg/day for 50+ - Follow up for [...] along with her Vit C. Will recheck Ironlevels in a month. The following approved medication requests have been transmitted electronically. Requested Prescriptions Signed Prescriptions Disp Refills DULoxetine (CYMBALTA) 30 mg capsule 90 capsule 1 Sig: Take 1 capsule by mouth once daily. cefADROxil (DURICEF) 500 mg capsule 14 capsule 0 Sig: Take 1 capsule by mouth twice daily for 7 days. Tppjwayo-Umaeyp-KQ-Thonzonium (CORTISPORIN-TC) otic suspension 10 mL 0 Sig: Use 3 Drops in the right ear three times daily for 7 days. (Disp 1 bottle) F/u routine 6 month routine check A1c, CBC and Iron prior Sanket Cruz MD documented in this encounterUniversity Hospitals Geneva Medical Center10-17-2022 Miscellaneous Notes* Telephone Encounter - Melinda Yip LPN - 09/09/2022 1:51 PM EDT Still has refills available. * Telephone Encounter - Melinda Yip LPN - 09/09/2022 11:11 AM EDT Last office visit: 08/15/22 Next appointment scheduled: No future appointments scheduled at this time. Last labs: 03/01/22 Assessment/Plan: R51.9, G89.29 Chronic intractable headache, unspecified headache type (primary encounter diagnosis) G93.2 Pseudotumor cerebri G47.39 Sleep apnea-like behavior Comment: Patient previously seen for history of pseudotumor and headaches with resolution of symptoms in 2017 but recurrence after COVID infection in 2019. [...] SE even with 50mg dose and would preferto trial alternative medication. On further discussion she reports that Topamax managed symptoms inthe past upon initial diagnosis and she tolerated medication well without SE. Reports medication was discontinued due to and was not restarted after. After discussion she would like to transition from Zonegran to Topamax. On review of chart appears she was taking 50mg Topamax BID in past.Will transition and titrate up slowly to 50mg BID. If at any time headaches worsen she is aware sheis to notify office. Tanya Vernon APRN.GROUP FITNESS ASSISTANT DEPARTMENT HEAD * Telephone Encounter - Hollie Chamberlain MA - 09/09/2022 8:37 AM EDT Pharmacy escripts requesting the following refill: Requested Prescriptions Pending Prescriptions Disp Refills topiramate (TOPAMAX) 25 mg tablet [Pharmacy Med Name: TOPIRAMATE 25 MG TABLET] 60 tablet 2 Sig: TAKE 1 TABLET BY MOUTH TWICE DAILY. START TOPAMAX AFTER STOPPING ZONEGRAN. JONES: 08/15/2022 NOV: None Please review. Hollie Chamberlain CMA documented in this encounterUniversity Hospitals Geneva Medical Center09-22-2022 History of Present illness Narrative* Tanya Vernon APRN.GROUP FITNESS ASSISTANT DEPARTMENT HEAD - 08/15/2022 11:30 AM EDT Images from the original note were not included. [facility] [place] Follow-up Virtual Visit Follow-up note This visit [...] neurology as above. However, recurrence of headaches sincehaving COVID in 2019. Etiology of headaches at this time uncertain. [...] brain to evaluate for pseudotumor or other intracraniallesion that might be cause of headaches as well as MRV to evaluate for possible sinus thrombosis ascause of increased ICP. At this time patient is not wanting LP but will reconsider if headaches were to worsen or not improve with therapy. I will also have patient undergo HSAT as untreated SARAN might provoke ICP as well as migraines. 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 From treatment standpoint, will place patient on Zonegran 50mg QHS that will be titrated up to 100mg QHS after 2 weeks. SE and ADRs reviewed with pt. Note that Zonegran may lower ICP but also act as a migraine preventative. In addition will provide medrol dose sheila to break headache cycle and again,possibly lower intracranial pressure. Pt will follow up [...] Topamax. Had stopped medication due to in 2016 and neverrestarted the medication after giving . Denies new [...] face is symmetric with no facial droop, hearingintact bilaterally, shoulder shrug is symmetric. Motor exam [...] DATE OF EXAM: May 13 2022 8:20AM JOVANI Akers4 - MRI BRAIN WO IVCON / PROCEDURE REASON: multiple diagnoses * * * * Physician Interpretation * * * * EXAMINATION: MRI BRAIN WO IVCON, MRV BRAIN WO IVCON CLINICAL HISTORY: Chronic intractable headache. TECHNIQUE: Routine noncontrast MRI protocol including diffusion images. Yfjv-dj-jcfmdk MRV without contrast was also obtained with [...] and narrowing of the dural venous sinuses. Podiatrist Assistant: JACKIE Transcribe Date/Time: May 13 2022 10:36A [...] Abs Lymph 1.00 - 4.00 k/uL 3.01 [place]% % 5.1 Abs [place] <0.87 k/uL 0.42 Eosin% % 2.3 Abs [...] Lymph%, CSF 50 - 90 % 88 [place]%, CSF 10 - 50 % 9 (L) [...] SE even with 50mg dose and would preferto trial alternative medication. On further discussion she reports that Topamax managed symptoms inthe past upon initial diagnosis and she tolerated medication well without SE. Reports medication was discontinued due to and was not restarted after. After discussion she would like to transition from Zonegran to Topamax. On review of chart appears she was taking 50mg Topamax BID in past.Will transition and titrate up slowly to 50mg BID. If at any time headaches worsen she is aware sheis to notify office. Tanyasabiha Vernon APRN.GROUP FITNESS ASSISTANT DEPARTMENT HEAD I spent a total of 30 minutes on the date of the service which included preparing to see the patient, [id number] patient care, completing clinical documentation, obtaining and/or reviewing separately obtained history, performing a medically appropriate examination, counseling and educating the pat ient/family/caregiver, and ordering medications, tests, or procedures. documented in this encounterUniversity Hospitals Geneva Medical Center08-09-2022 Miscellaneous Notes* Telephone Encounter - Melinda Yip LPN - 07/02/2022 11:25 AM EDT PATIENT NOTIFIED OF SAME. * Telephone Encounter - BLAYNE Thomas - 07/02/2022 10:03 AM EDT TC to patient with update from provider that prescription was changed from 2, 50mg tablets a day to1, 100 mg tablet a day. No answer. Left VM to return call to office. BLAYNE Thomas * Telephone Encounter - Evi Dang LPN - 07/01/2022 2:12 PM EDT Spoke with pt yes she is still taking this medication. Pt states she takes 2 once a day. Evi Dang LPN * Telephone Encounter - BLAYNE Thomas - 07/01/2022 2:01 PM EDT TC to patient with no answer. Left message to return call to office. Provider wants to check that pt is still taking medication and if so, how much. BLAYNE Thomas * Telephone Encounter - BLAYNE Thomas - 07/01/2022 9:04 AM EDT Patient has been identified by name and [...] Thank you. BLAYNE Thomas documented in this encounterUniversity Hospitals Geneva Medical Center07-07-2022 Miscellaneous Notes* Telephone Encounter - BLAYNE Thomas - 05/30/2022 2:24 PM EDT TC to patient who verbalizes understanding of providers message with no questions at this time. BLAYNE Thomas * Telephone Encounter - BLAYNE Thomas - 05/30/2022 2:21 PM EDT ----- Message from Damien Shaver Jr., MD sent at 05/30/2022 1:31 PM EDT ----- Per record: Successful lumbar puncture at L2-3, 21 cc of clear CSF removed in 4 vials OP: 29 (ELEVATED) CP: <15 documented in this encounterUniversity Hospitals Geneva Medical Center07-07-2022 Miscellaneous Notes* Brief Op Note - Leighann Sandy PA-C - 05/30/2022 11:14 AM EDT BRIEF OPERATIVE / PROCEDURE NOTE LOG ID: [id number] SURGERY/PROCEDURE DATE: 05/30/2022 INCISION/PROCEDURE START TIME: 10:49 AM INCISION CLOSE/PROCEDURE END TIME: 11:10 AM SURGEON(S)/PROCEDURALIST(S) AND MARINE FUEL DOCK ATTENDANT(S): Surgeon(s) and Role: * Zenobia Wetzel APRN.GROUP FITNESS ASSISTANT DEPARTMENT HEAD - Primary Leighann Sandy PA-C -Core Manager No Additional Staff SURGERY/PROCEDURE(S): Diagnostic Lumbar Puncture [...] May 30, 2022 TIME: 11:14 AM PAGER: [phone] * Patient Education - Juan Jacques RN - 05/30/2022 10:40 AM EDT AMBULATORY PATIENT EDUCATION TOPIC: Survival Skills: intraprocedural [...] In Department: HB 201 documented in this encounterUniversity Hospitals Geneva Medical Center06-30-2022 Nurse Note* Alisha Agee RN - 05/23/2022 3:25 PM EDT IR Lumbar Puncture Pre Procedure Instructions - 05/30/2022 Michael Castro is scheduled for an appointment for LUMBAR PUNCTURE DIAGNOSTIC with local anesthetic scheduled on , May 30, 2022 at [facility], [address] [place] [address]. Arrival: Main [place] Entrance. Arrive to [facility] [place] [id number] Imaging Department by 8:30 am. Please bring your Photo ID and Insurance Card. Plant Maintenance Manager/Transportation: If you will be arriving at [facility] via ambulance/medical transportation or public transportation/shuttle, you still need a responsible adult to accompany you to and from the procedure and recommended to stay with you for 24 hours after the procedure. You will need a responsible adult to accompany you to and from the procedure. Your food mobile driver is required to stay with you until you are taken into the procedure room. Please see updated Visitor Guidelines at [email or web address]. Labs: No labs needed per policy. Diet: [...] the day of procedure? - If yes, ImagingExam should be rescheduled Do you have any medication pumps or monitoring devices on your body? Do you have any questions, concerns? If you have any questions please call [phone], Neuro Interventional Radiology Alisha Agee RN documented in this encounterUniversity Hospitals Geneva Medical Center06-23-2022 Miscellaneous Notes* Telephone Encounter - BLAYNE Thomas - 05/16/2022 11:33 AM EDT TC to patient who says she agrees with provider and would like to have the lumbar puncture. Patientalso says that her headaches completely went away when she was taking the Prednisone but came back full force once the package was complete. Just wanted provider to be aware. Please advise. Thank you. BLAYNE Thomas * Telephone Encounter - Damien Shaver Jr., MD - 05/15/2022 6:11 PM EDT Patient may benefit from lumbar puncture as [...] option at this time. Damien Shaver MD * Telephone Encounter - Tesha Godinez LPN - 05/15/2022 4:48 PM EDT Patient aware of results and states she is taking the Zonegran as ordered with no real relief noted. Also takes ibuprofen and tylenol PRN for pain and partially effective. Patient requesting DR. Shaver be made aware that patient has Eye Dr appointment on FridayMay 20. Tesha Godinez LPN * Telephone Encounter - Tesha Godinez LPN - 05/15/2022 8:24 AM EDT ----- Message from Damien Shaver Jr., MD sent at 05/14/2022 12:56 PM EDT ----- Pt MRI does suggest intracranial HTN. Please contact pt to confirm still taking Zonegran and whether headaches have improved. If persist, and given side effects on Diamox and Topamax, may benefit from LP (which will also allow for pressure measurement). Damien Shaver MD documented in this encounterUniversity Hospitals Geneva Medical Center06-20-2022 History of Present illness Narrative* RT Betzy(R) - 05/13/2022 8:00 AM EDT Radiology Service Progress Note PATIENT NAME: Michael Castro DATE OF SERVICE: May 13, 2022 TIME: 8:01 AM PATIENT IDENTITY VERIFICATION COMPLETED USING TWO (2) IDENTIFIERS: Name and Date of confirmedby patient verbally. FALL SCREENING: Has the patient [...] 13, 2022 8:01 AM documented in this encounterUniversity Hospitals Geneva Medical Center04-08-2022 Instructions* Patient Instructions* Sanket Cruz MD - 03/01/2022 10:16 AM EDT Discussed weaning off the omeprazole 20 mg by doing 1 tab every other day for a month then one twice a week (Mon,Thur) for a month and then stop. Please get labs done on or after 08/16/2022 prior to your next visit. documented in this encounterUniversity Hospitals Geneva Medical Center04-08-2022 History of Present illness Narrative* Sanket Crzu MD - 03/01/2022 10:00 AM EDT Chief Complaint Patient presents with: Recheck: 5 months HPI Michael Castro is a 36 year old female who presents here today for Chronic Medical Conditions and Acute Complaints.. Patient with hx of pseudotumor cerebri, MPV, inflammatory polyarthropathy (used to see Dr. Richardson), low Iron, elevated A1c, anxiety with Depression, GERD, low iron, morbid obesity, Vit D def as wellas those reviewed and addressed below and in [...] Paternal Grandmother other (Other) Paternal Grandmother No breast/chauffeur cancer Aneurysm Paternal Grandfather other (cask gene [...] in no acute distress, well-hydrated, well nourished. andMorbidly obese. Eyes: Anicteric sclera. Pupils are equally [...] Abs Lymph 1.00 - 4.00 k/uL 3.01 [place]% % 5.1 Abs [place] <0.87 k/uL 0.42 Eosin% % 2.3 Abs [...] a month then one twice a week (Fri,) for a month and then stop. 2. [...] prior Sanket Cruz MD documented in this encounterUniversity Hospitals Geneva Medical Center03-25-2022 Miscellaneous Notes* Telephone Encounter - Suzanne Smith RN - 02/15/2022 4:18 PM EDT Patient notified and voiced understanding of below information and instructions. Suzanne Smith RN * Telephone Encounter - Mine Doty MD - 02/15/2022 3:41 PM EDT Patient's pelvic US is normal. Thus I do not think that any gynecologic process is causing her fever. I am sorry to hear that she is not feeling well. I would encourage her to be seen by primary carefor further evaluation. She could go to urgent care today if needed. Mine Doty MD * Telephone Encounter - Ave Gallardo RN - 02/15/2022 11:51 AM EDT Patient had her pelvic ultrasound this morning for pelvic pain. States as the morning has progressed, she began not feeling well. Took her temperature. It's 100.5. Having chills too. Asking if this could be related to her pain. Ave Gallardo RN documented in this encounterUniversity Hospitals Geneva Medical Center03-24-2022 History of Present illness Narrative* Mine Doty MD - 02/14/2022 8:13 AM EDT Michael Castro is a 36 year old female who presents for problem visit. HPI: Patient presents with pain since the end of menses - 02/07/22. Pain is from her belly button tothe LLQ. She feels pain with heaviness that [...] L2 SAB1 IAB0 Ectopic0 Multiple0 Live Births2 Eeg Technologist History LMP: 02/02/2022, Having periods Age at Menarche: Age at First : Age at Menopause: Eeg Technologist History Comments: Sexual Activity: Yes; Male; one [...] Paternal Grandmother other (Other) Paternal Grandmother No breast/chauffeur cancer Aneurysm Paternal Grandfather other (cask gene [...] external genitalia normal, normal Bartholin's glands, urethra, Souderton's glands, no vulvar lesions, no cervical lesions, good vaginal support, physiologic discharge present, normal appearing perineal body and perianal region BIMANUAL: uterus & adnexa not discretely palpated as exam limited by obesity, patient with mildtenderness on exam ASSESSMENT AND PLAN: 36yo female with pelvic pain Check pelvic US Advised on tylenol & ibuprofen regularly to control pain Medical Decision Making: Problems: Moderate: New problem with uncertain prognosis Data: Unique test(s) ordered: 1 Risk: Low: Low risk from testing/treatment Medical Decision Making Level: 3 - Low Mine Doty MD documented in this encounterUniversity Hospitals Geneva Medical Center06-16-2017 History of Past illness Narrative* [...] calculate rate of success using pre-labor factors: [email or web address] Predicted chance of vaginal after : [...] of this encounter (statuses as of 02/14/2022) [facility]06-16-2017 History of Past illness Narrative* [...] calculate rate of success using pre-labor factors: [email or web address]/mfmu/[email or web address].[email or web address] Predicted chance of vaginal after : 23% [...] of this encounter (statuses as of 02/15/2022) [facility]06-[facility] History of Past illness Narrative* [...] calculate rate of success using pre-labor factors: [email or web address] Predicted chance of vaginal after : [...] of this encounter (statuses as of 02/15/2022) [facility]06-[facility] History of Past illness Narrative* [...] calculate rate of success using pre-labor factors: [email or web address] Predicted chance of vaginal after : [...] of this encounter (statuses as of 02/15/2022) [facility]06-[facility]-2017 History of Past illness Narrative* [...] calculate rate of success using pre-labor factors: [email or web address] Predicted chance of vaginal after : [...] of this encounter (statuses as of 02/16/2022) [facility]06-[facility] History of Past illness Narrative* [...] calculate rate of success using pre-labor factors: [email or web address]://[email or web address].[email or web address] Predicted chance of vaginal after : 23% [...] of this encounter (statuses as of 03/01/2022) [facility] History of Past illness Narrative* [...] calculate rate of success using pre-labor factors: http://[email or web address]/[email or web address].[email or web address] Predicted chance of vaginal after : 23% [...] of this encounter (statuses as of 05/14/2022) [facility]06[facility] History of Past illness Narrative* Problem Noted Date Resolved Date Request for sterilization 05/09/20172016 Overview: 6/16/17 - patient requests tubal ligation - KJ [...] calculate rate of success using pre-labor factors: [email or web address] Predicted chance of vaginal after : [...] of this encounter (statuses as of 05/16/2022) [facility] History of Past illness Narrative* [...] calculate rate of success using pre-labor factors: [email or web address] Predicted chance of vaginal after : [...] of this encounter (statuses as of 05/23/2022) [facility]06-[facility] History of Past illness Narrative* [...] calculate rate of success using pre-labor factors: [email or web address] Predicted chance of vaginal after : [...] of this encounter (statuses as of 05/30/2022) [facility] History of Past illness Narrative* [...] calculate rate of success using pre-labor factors: [email or web address] Predicted chance of vaginal after : [...] of this encounter (statuses as of 05/31/2022) [facility]06[facility] History of Past illness Narrative* [...] calculate rate of success using pre-labor factors: [email or web address] Predicted chance of vaginal after : [...] of this encounter (statuses as of 07/02/2022) [facility] History of Past illness Narrative* [...] calculate rate of success using pre-labor factors: [email or web address] Predicted chance of vaginal after : [...] of this encounter (statuses as of 07/02/2022) [facility] History of Past illness Narrative* [...] calculate rate of success using pre-labor factors: http://[email or web address]/vagbirth.[email or web address] Predicted chance of vaginal after : 23% [...] of this encounter (statuses as of 08/15/2022) [facility] History of Past illness Narrative* [...] calculate rate of success using pre-labor factors: http://[email or web address]/[email or web address].[email or web address] Predicted chance of vaginal after : 23% [...] of this encounter (statuses as of 09/09/2022) [facility] History of Past illness Narrative* [...] calculate rate of success using pre-labor factors: [email or web address]://www.[email or web address]/mfmu/[email or web address].[email or web address] Predicted chance of vaginal after : 23% [...] of this encounter (statuses as of 10/24/2022) [facility] of Past illness Narrative* [...] calculate rate of success using pre-labor factors: [email or web address] Predicted chance of vaginal after : [...] of this encounter (statuses as of 11/08/2022) [facility] of Past illness Narrative* [...] calculate rate of success using pre-labor factors: [email or web address] Predicted chance of vaginal after : [...] of this encounter (statuses as of 11/24/2022) [facility] of Past illness Narrative* [...] calculate rate of success using pre-labor factors: http://[email or web address] [email or web address] Predicted chance of vaginal after : 23% Patient's plan for delivery mode: Repeat Mine Doty MD 12/12/2016Pt had a previous C section. She desires a . She will discuss this with Dr Doty at NOB appointment. C section operative report in [address] Soren review. TKRN History of labor 12/12/2016 Overview: [...] of this encounter (statuses as of 09/16/2023) [facility] History of Past illness Narrative* [...] calculate rate of success using pre-labor factors: [email or web address] Predicted chance of vaginal after : [...] of this encounter (statuses as of 09/18/2023) [facility] History of Past illness Narrative* [...] calculate rate of success using pre-labor factors: [email or web address]://www.b[email or web address]/mu/[email or web address].html Predicted chance of vaginal after : 23% [...] of this encounter (statuses as of 09/28/2023) [facility] History of Past illness Narrative* [...] calculate rate of success using pre-labor factors: [email or web address]://www.bs.[facility]/mfmu/vagbirth.html Predicted chance of vaginal after : 23% [...] of this encounter (statuses as of 10/09/2023) [facility] History of Past illness Narrative* [...] calculate rate of success using pre-labor factors: [email or web address] Predicted chance of vaginal after : [...] of this encounter (statuses as of 10/09/2023) [facility] History of Past illness Narrative* [...] calculate rate of success using pre-labor factors: [email or web address].[email or web address] Predicted chance of vaginal after : [...] of this encounter (statuses as of 10/09/2023) [facility] note Author Kamron Wing [facility] Note Date/Time May 12, 2025 12:3 2pm [facility] Medical Records Department [address] [place] [address] Anesthesia Postop Eval II 05/12/25 1132 MR#: [id number] Acct: [id number] Name: MICHAEL CASTRO Rep #:[id number] : 1985 40 From: Kamron Wing MD PCP: Dr. Sanket Cruz MD Status:REG SDC Y Race: AA Location: [place] [address] Anesthesia Postop Eval I Sum Postop Eval Completion status Anesthesia document: Postop Eval 1 completed: Yes Anesthesia Postop Eval I Summary Anesthesia Postop Eval I Summary: Anesthesia Postop Eval I: Assessment Summary Airway patent Yes 05/12/25 10:06 [email or web address] Spontaneous unlabored Yes 05/12/25 10:06 BAG [email or web address] respirations Mental status Awake,Calm 05/12/25 10:06 [email or web address] nausea No 05/12/25 10:06 BAG [email or web address] Vomiting No 05/12/25 10:06 BAG [email or web address] Anesthesia Postop Eval I: Fluid Summary Crystalloid volume administer 1,000 05/12/25 10:06 BAG [email or web address] (ml) Colloids volume administered ( ml) Blood Product volume administered (ml) Total IV fluid infused 1,000 05/12/25 10:06 BAG [email or web address] Anesthesia Postop Eval I: Summary Notes Anesthesia Complication No 05/12/25 10:06 BAG [email or web address] Anesthesia Complication Comment: Post-operative progress note Anesthesia: Postop Eval II Evaluation Mental status: Awake Pain Level: 0 nausea: No Vomiting: No Complications Anesthesia Complication: No 05/12/25 1132 <Electronically signed by Kamron Wing MD> Date _ Kamron Wing MD Cosigner Signature: Date CC: ~ Signed [facility] Work Phone: Evaluation note* Diagnosis Pelvic pain in female- Primary Unspecified symptom associated with female genital organs [facility]* Diagnosis Pelvic pain in female Unspecified symptom associated with female genital organs [facility]* Diagnosis GERD without esophagitis- Primary Esophageal [...] of other medications [facility]* Diagnosis Pseudotumor cerebri Benign intracranial hypertension Chronic intractable headache, unspecified headache type [facility]* Diagnosis Pseudotumor cerebri- Primary Benign intracranial hypertension [facility]* Diagnosis Chronic intractable headache, unspecified headache type- Primary Pseudotumor Pseudotumor cerebri Benign intracranial hypertension [facility]* Diagnosis Chronic intractable headache, unspecified headache type Pseudotumor [facility]* Diagnosis Pseudotumor cerebri Benign intracranial hypertension Chronic intractable headache, unspecified headache type [facility]* Diagnosis Pseudotumor cerebri Benign intracranial hypertension Chronic intractable headache, unspecified headache type [facility]* Diagnosis Chronic intractable headache, unspecified headache type- Primary Pseudotumor cerebri Benign intracranial hypertension Sleep apnea-like behavior [facility] Diagnosis Well adult exam- Primary Routine [...] deficiency anemia type [facility]* Diagnosis Onset Date Resolution Status BPPV (benign paroxysmal positional vertigo) [facility] Work Phone: Evaluation note* Diagnosis Abnormal mammogram- Primary Abnormal mammogram, unspecified [facility]* Diagnosis Encounter for screening mammogram for breast cancer documented [facility]* Diagnosis Abnormal mammogram Abnormal mammogram, unspecified [facility] Diagnosis Abnormal mammogram Abnormal mammogram, unspecified [facility]* Diagnosis Mass of left breast, unspecified quadrant- Primary Abnormal mammogram Abnormal mammogram, unspecified [facility]* Diagnosis Mass of left breast, unspecified quadrant- Primary [facility] Diagnosis Mass of left breast, unspecified quadrant Abnormal mammogram Abnormal mammogram, unspecified [facility]* Diagnosis Otalgia, right ear- Primary Fever, unspecified fever cause documented [facility]* Diagnosis Breast cyst, left- Primary [facility]* Diagnosis Chronic right hip pain- Primary Pain in joint, pelvic region and thigh [facility] Diagnosis Chronic right hip pain Pain in joint, pelvic region and thigh [facility]* Diagnosis Arthritis of right hip- Primary [facility]* Diagnosis Primary osteoarthritis of right hip- Primary Primary localized osteoarthrosis, pelvic region and thigh Chronic right hip pain Pain in joint, pelvic region and thigh [facility] Diagnosis Abnormal mammogram- Primary Abnormal mammogram, unspecified Abnormal uterine bleeding (AUB) Malaise and fatigue Other malaise and fatigue [facility] Diagnosis Abnormal uterine bleeding (AUB) [facility] Diagnosis Well adult exam- Primary Routine [...] Benign intracranial hypertension [facility]* Diagnosis Encounter for screening for malignant neoplasm of cervix- Primary Screening for malignant neoplasm of the cervix Special screening examination for human papillomavirus (HPV) Encounter for gynecological examination (general) (routine) without abnormal findings Iron deficiency anemia, unspecified iron deficiency anemia type [facility] Diagnosis Iron deficiency anemia due to chronic blood loss- Primary Iron deficiency anemia secondary to blood loss (chronic) Low iron Iron deficiency anemia, unspecified [facility] Diagnosis Iron deficiency anemia due to chronic blood loss- Primary Iron deficiency anemia secondary to blood loss (chronic) Iron deficiency anemia, unspecified iron deficiency anemia type documented [facility]* Diagnosis Iron deficiency anemia due to chronic blood loss- Primary Iron deficiency anemia secondary to blood loss (chronic) Low iron Iron deficiency anemia, unspecified Chronic intractable headache, unspecified headache type- Primary Pseudotumor cerebri Benign intracranial hypertension [facility]* Diagnosis IIH (idiopathic intracranial hypertension)- Primary Benign intracranial hypertension Chronic intractable headache, unspecified headache type [facility] noteNo assessment information availableWWilson Health Work Phone: Evaluation note* Diagnosis Iron deficiency anemia due to chronic blood loss- Primary Iron deficiency anemia secondary to blood loss (chronic) Low iron Iron deficiency anemia, unspecified [facility]* Diagnosis Iron deficiency anemia due to chronic blood loss- Primary Iron deficiency anemia secondary to blood loss (chronic) Low iron Iron deficiency anemia, unspecified documented in this encounter [facility] note* Diagnosis Iron deficiency anemia due to [...] pain in female documented in this encounter [facility] note* Diagnosis Iron deficiency anemia due to [...] deficiency anemia, unspecified [facility] Diagnosis Iron deficiency anemia due to chronic blood loss- Primary Iron deficiency anemia secondary to blood loss (chronic) Menorrhagia with regular cycle Excessive or frequent menstruation Fibroids, subserous Subserous leiomyoma of uterus Deep dyspareunia Chronic pelvic pain in female Unspecified symptom associated with female genital organs Acute otitis media, left- Primary Unspecified otitis media [facility]* Diagnosis Iron deficiency anemia [...] leiomyoma of uterus [facility]* Diagnosis Iron deficiency anemia due to [...] Benign intracranial hypertension [facility]* Diagnosis Iron deficiency anemia due to chronic blood loss- Primary Iron deficiency anemia secondary to blood loss (chronic) Menorrhagia with regular cycle Excessive or frequent menstruation Fibroids, subserous Subserous leiomyoma of uterus Deep dyspareunia Chronic pelvic pain in female Unspecified symptom associated with female genital organs IIH (idiopathic intracranial hypertension)- Primary Benign intracranial hypertension [facility]* Diagnosis Iron deficiency anemia [...] deficiency anemia, unspecified [facility]* Diagnosis Iron deficiency anemia [...] Benign intracranial hypertension [facility]* Diagnosis Iron deficiency anemia [...] blood loss (chronic) [facility]* Diagnosis Iron deficiency anemia [...] Orders: SURGICAL PATHOLOGY [facility]* Diagnosis Iron deficiency anemia due to [...] Abnormal mammogram, unspecified [facility]* Diagnosis Iron deficiency anemia due to [...] Abnormal mammogram, unspecified [facility]* Diagnosis Iron deficiency anemia due to [...] subserous Subserous leiomyoma of uterus Deep dyspareunia Menorrhagia with regular cycle- Primary Excessive or frequent menstruation Iron deficiency anemia due to chronic blood loss Iron deficiency anemia secondary to blood loss (chronic) Deep dyspareunia Fibroids, subserous Subserous leiomyoma of uterus documented [facility]* Diagnosis Iron deficiency anemia [...] subserous Subserous leiomyoma of uterus Deep dyspareunia Postop check- Primary Follow-up examination, following unspecified surgery documented [facility] this encounter [facility]ative)* Diagnostic Procedure Only (Routine) - Pending Review Specialty Diagnoses / Procedures Referred By Contac t Referred To Contact [facility] Diagnoses Pelvic pain in female Procedures US FEMALE PELVIS TRANSABD LTD US PELVIC NONOBSTETRIC IMAGE [facility] LIMITED/F/U Mine Doty MD [address] [place] [address] Us Imaging Referral ID Status Reason Start Date Expiration Date Visits Requested Visits Authorized [id number] Pending Review Auto-Generat ed Referral 02/14/2022 03/16/2023 1 1 * Diagnostic Procedure Only (Routine) - Authorized Specialty Diagnoses / Procedures Referred By Contac t Referred To Contact [facility] IMAGING Diagnoses Pelvic pain in female Procedures US FEMALE PELVIS TRANSVAG US TRANSVAGINAL Mine Doty MD [address] [place] [place] [address] Us Imaging Referral ID Status Reason Start Date Expiration Date Visits Requested Visits Authorized [id number] Authorized Auto-Generat ed Referral 02/14/2022 03/16/2023 1 1 * Diagnostic Procedure Only (Routine) - Pending Review Specialty Diagnoses / Procedures Referred By Contac t Referred To Contact [facility] Diagnoses Pelvic pain in female Procedures PELVIC US WHI US PELVIC NONOBSTETRIC REAL-TIME IMAGE COMPLETE Mine Doty MD [address] [place] [address] [facility] [address] [place] [address] Referral ID Status Reason Start Date Expiration Date Visits Requested Visits Authorized [id number] Pending Review Auto-Generat ed Referral 02/14/2022 02/14/2023 1 1 [facility] for referral (narrative)* Diagnostic Procedure Only (Routine) - Closed Specialty Diagnoses / Procedures Referred By Contac t Referred To Contact US IMAGING Diagnoses Pelvic pain in female Procedures US FEMALE PELVIS TRANSABD LTD US PELVIC NONOBSTETRIC IMAGE [facility] LIMITED/F/U Mine Doty MD [address] [place] [address] Us Imaging Referral ID Status Reason Start Date Expiration Date V isits Requested Visits Authorized [id number] Closed Auto-Generate d Referral 02/15/2022 03/17/2022 1 1 * Diagnostic Procedure Only (Routine) - Closed Specialty Diagnoses / Procedures Referred By Contac t Referred To Contact [facility] IMAGING Diagnoses Pelvic pain in female Procedures US FEMALE PELVIS TRANSVAG US TRANSVAGINAL Mine Doty MD [address] [place] [address] Us Imaging Referral ID Status Reason Start Date Expiration Date V isits Requested Visits Authorized [id number] Closed Auto-Generate d Referral 02/14/2022 03/16/2023 1 1 [facility] for referral (narrative)* Diagnostic Procedure Only (Routine) - Authorized Specialty Diagnoses / Procedures Referred By Horaceac t Referred To Contact [facility] Diagnoses Abnormal mammogram Procedures US BREAST LTD LEFT US BREAST UNI REAL [place] [address] [place] [address] [facility] [address] [employer] [place] [place] [address] Referral ID Status Reason Start Date Expiration Date Visits Requested Visits Authorized [id number] Authorized Auto-Generat ed Referral 3 10/15/2024 1 1 * Diagnostic Procedure Only (Routine) - Authorized Specialty Diagnoses / Procedures Referred By Brien t Referred To Contact [facility] Diagnoses Abnormal mammogram Procedures SARATH DIAGNOSTIC LEFT DIAGNOSTIC MAMMOGRAPHY COMPUTER-AIDED DETCJ UNI Sanket Cruz MD [address] [place] [address] [facility] [address] [employer] [place] [address] Referral ID Status Reason Start Date Expiration Date Visits Requested Visits Authorized [id number] Authorized Auto-Generat ed Referral 3 10/15/2024 1 1 [facility] for referral (narrative)* Diagnostic Procedure Only (Routine) - Closed Specialty Diagnoses / Procedures Referred By Brien t Referred To Contact [facility] Diagnoses Encounter for screening mammogram for breast cancer Procedures SARATH SCREENING SCREENING MAMMOGRAPHY BI 2-VIEW BREAST INC CAD Sanket Cruz MD [address] [place] [address] [facility] [address] [employer] [place] [address] Referral ID Status Reason Start Date Expiration Date V isits Requested Visits Authorized [id number] Closed Auto-Generate d Referral 05/28/2023 06/26/2024 1 1 [facility] for referral (narrative)* Diagnostic Procedure Only (Routine) - Closed Specialty Diagnoses / Procedures Referred By Brien scales Referred To Contact [facility] Diagnoses Abnormal mammogram Procedures US BREAST LTD LEFT US BREAST UNI REAL TIME WITH IMAGE LIMITED Sanket Cruz MD [address] [place] [address] [facility] [address] [employer] [place] [address] Referral ID Status Reason Start Date Expiration Date V isits Requested Visits Authorized [id number] Closed Auto-Generate d Referral 09/16/2023 10/15/2024 1 1 [facility] for referral (narrative)* Diagnostic Procedure Only (Routine) - Authorized Specialty Diagnoses / Procedures Referred By Brien scales Referred To Contact [facility] Diagnoses Mass of left breast, unspecified quadrant Abnormal mammogram Procedures US BREAST LTD LEFT US BREAST UNI REAL [place] [address] [place] [address] [facility] [address] [employer] [address] Referral ID Status Reason Start Date Expiration Date Visits Requested Visits Authorized [id number] Authorized Auto-Generat ed Referral 04/08/2024 11/07/2024 1 1 * Diagnostic Procedure Only (Routine) - Authorized Specialty Diagnoses / Procedures Referred By Brien t Referred To Contact [facility] Diagnoses Mass of left breast, unspecified quadrant Abnormal mammogram Procedures SARATH DIAGNOSTIC LEFT DIAGNOSTIC MAMMOGRAPHY COMPUTER-[place]ID[place] [address] [place] [address] [facility] [address] [employer] [place] [address] Referral ID Status Reason Start Date Expiration Date Visits Requested Visits Authorized [id number] Authorized Auto-Generat ed Referral 04/08/2024 11/07/2024 1 1 [facility] for referral (narrative)* Diagnostic Procedure Only (Routine) - Pending Review Specialty Diagnoses / Procedures Referred By Brien scales Referred To Contact [facility] Diagnoses Mass of left breast, unspecified quadrant Procedures US BREAST LTD LEFT US BREAST UNI REAL TIME WITH IMAGE LIMITED Funmilayo Davies APRN.[employer] ASSISTANT DEPARTMENT HEAD [address] [place], [place] [id number] [facility] [address] [place] [address] Referral ID Status Reason Start Date Expiration Date Visits Requested Visits Authorized [id number] Pending Review Auto-Generat ed Referral 4 05/13/2025 1 1 * Diagnostic Procedure Only (Routine) - Pending Review Specialty Diagnoses / Procedures Referred By Brien scales Referred To Contact [facility] Diagnoses Mass of left breast, unspecified quadrant Procedures SARATH DIAGNOSTIC BILATERAL DIAGNOSTIC MAMMOGRAPHY COMPUTER-AIDED DETCJ BI Funmilayo Davies APRN.GROUP FITNESS ASSISTANT DEPARTMENT HEAD [address] [place] [address] [facility] [address] [place] [address] Referral ID Status Reason Start Date Expiration Date Visits Requested Visits Authorized [id number] Pending Review Auto-Generat ed Referral 4 05/13/2025 1 1 [facility] for referral (narrative)* Diagnostic Procedure Only (Routine) - New Request Specialty Diagnoses / Procedures Referred By Brien scales Referred To Contact [facility] Diagnoses Breast cyst, left Procedures SARATH SCREENING W DIANN SCREENING DIGITAL BREAST TOMOSYNTHESIS BI SCREENING MAMMOGRAPHY BI 2-VIEW BREAST INC CAD Funmilayo Davies APRN.GROUP FITNESS ASSISTANT DEPARTMENT HEAD [facility] [place] [address] [facility] [address] [place] [address] Referral ID Status Reason Start Date Expiration Date Visits Requested Visits Authorized [id number] New Request Auto-Generat ed Referral 12/04/2025 1 1 Electronically signed by Funmilayo Davies APRN.GROUP FITNESS ASSISTANT DEPARTMENT HEAD at 11/04/2024 8:57 AM EST [facility] for referral (narrative)No reason for referral information availableWWilson Health Work Phone: Reason for visit Narrative* Diagnostic Procedure Only (Routine) - Closed Specialty Diagnoses / Procedures Referred By Horaceac t Referred To Contact [facility] Diagnoses Pelvic pain in female Procedures US FEMALE PELVIS TRANSVAG US TRANSVAGINAL Mine Doty MD [address] [place] [address] Us Imaging Referral ID Status Reason Start Date Expiration Date V isits Requested Visits Authorized [id number] Closed Auto-Generate d Referral 02/14/2022 03/16/2023 1 1 [facility] for visit Narrative* Auth/Cert Specialty Diagnoses / Procedures [facility] Referred To Contact [facility] Diagnoses Pseudotumor cerebri Procedures DIAGNOSTIC LUMBAR SPINAL PUNCTURE SPINAL PUNCTURE LUMBAR DIAGNOSTIC [facility] [address] [place] [address] Referral ID Status Reason Start Date Expiration Date Visits Re quested Visits Authorized [id number] 1 1 [facility] for visit Narrative* Diagnostic Procedure Only (Routine) - Closed Specialty Diagnoses / Procedures [facility] Referred To Contact [facility] Diagnoses Encounter for screening mammogram for breast cancer Procedures SARATH SCREENING SCREENING MAMMOGRAPHY BI 2-VIEW BREAST INC CAD Sanket Cruz MD [address] [place] [address] [facility] [address] [place] [address] Referral ID Status Reason Start Date Expiration Date V isits Requested Visits Authorized [id number] Closed Auto-Generate d Referral 05/28/2023 06/26/2024 1 1 [facility] for visit Narrative* Diagnostic Procedure Only (Routine) - Closed Specialty Diagnoses / Procedures [facility] Referred To Contact [facility] Diagnoses Abnormal mammogram Procedures SARATH DIAGNOSTIC LEFT DIAGNOSTIC MAMMOGRAPHY COMPUTER-AIDED DETCJ UNI Sanket Cruz MD [address] [place] [address] [facility] [address] [place] [address] Referral ID Status Reason Start Date Expiration Date V isits Requested Visits Authorized [id number] Closed Auto-Generate d Referral 09/16/2023 10/15/2024 1 1 [facility] for visit Narrative* Diagnostic Procedure Only (Routine) - Closed Specialty Diagnoses / Procedures Referred By Contac t Referred To Contact [facility] IMAGING Diagnoses Mass of left breast, unspecified quadrant Abnormal mammogram Procedures SARATH DIAGNOSTIC LEFT DIAGNOSTIC MAMMOGRAPHY COMPUTER-AIDED DETCJ [facility] Sanket Cruz MD [address] [place] [address] [facility] [address] [place] [phone] Referral ID Status Reason Start Date Expiration Date V isits Requested Visits Authorized [id number] Closed Auto-Generate d Referral 04/08/2024 11/07/2024 1 1 [facility] for visit Narrative* Diagnostic Procedure Only (Routine) - Closed Specialty Diagnoses / Procedures Referred By Contac t Referred To Contact XR IMAGING Diagnoses Chronic right hip pain Procedures XR HIP GENERAL 3V PELV/AP/LAT RIGHT RADEX HIP UNILATERAL WITH PELVIS 2-3 VIEWS Sanket Cruz MD [address] [place] [address] [place] [id number] Referral ID Status Reason Start Date Expiration Date V isits Requested Visits Authorized [id number] Closed Auto-Generate d Referral 12/02/2024 01/01/2026 1 1 [facility] for visit Narrative* Diagnostic Procedure Only (Routine) - Closed Specialty Diagnoses / Procedures Referred By Contac t Referred To Contact [facility] Diagnoses Abnormal uterine bleeding (AUB) Procedures PELVIC US I US PELVIC NONOBSTETRIC REAL-TIME IMAGE COMPLETE Mine Doty MD [address] [place] [address] Phone: tel: fax: [facility] [address] [place] [id number] Referral ID Status Reason Start Date Expiration Date V isits Requested Visits Authorized [id number] Closed Auto-Generate d Referral 01/20/2025 01/20/2026 1 1 [facility] for visit Narrative* [place] Prior Authorization (Routine) - Authorized Specialty Diagnoses / Procedures Referred By Brien t Referred To Contact Diagnoses Iron deficiency anemia due to chronic blood loss Low iron Procedures IRON SUCROSE INJECTION PER 1 MG GrantPetra jimenez [address] [place] [address] Phone: tel: fax: GrantPetra jimenez [address] [place] [address] Phone: tel: fax: Referral ID Status Reason Start Date Expiration Date V isits Requested Visits Authorized [id number] Authorized 02/14/2025 11/23/2025 0 99 [facility] for visit Narrative* Diagnostic Procedure Only (Routine) - Closed Specialty Diagnoses / Procedures Referred By Brien t Referred To Contact [facility] Diagnoses Abnormal mammogram Procedures SARATH DIAGNOSTIC LEFT DIAGNOSTIC MAMMOGRAPHY COMPUTER-AIDED DETCJ [facility] Mine Doty MD [address] [place] [address] Phone: tel: fax: [facility] [address] [place] [address] Referral ID Status Reason Start Date Expiration Date V isits Requested Visits Authorized [id number] Closed Auto-Generate d Referral 01/20/2025 02/19/2026 1 1 [facility] Summary Purpose Family History No Family History Records FoundNo Family History Records FoundNo Family History Records FoundNo Family History Records Found Advance Directives No Advanced Directives Records FoundDocuments on File Type Date Recorded 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 Advance Directive(s) Documents on File Type Date Recorded 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 No April 29, 2025 8:25am Reason for Referral Specialty Diagnoses / Procedures Referred By Contac t Referred To Contact Neurology Diagnoses Pseudotumor cerebri Headaches Procedures CONSULT TO NEUROLOGY OFFICE/OUTPATIENT [facility] 60-74 MINUTES Sanket Cruz MD [address] [place] [address] Referral ID Status Reason Start Date Expiration Date Visits Requested Visits Authorized [id number] Pending Review PCP Requested Referral 03/01/2022 03/01/2023 1 1 Specialty Diagnoses / Procedures Referred By Contac t Referred To Contact MR IMAGING Diagnoses Pseudotumor cerebri Chronic intractable headache, unspecified headache type Procedures MRV BRAIN WO IVCON MRA, HEAD W/O CONTRAST Damien Shaver Jr., MD [address] [address] Mr Imaging Referral ID Status Reason Start Date Expiration Date V isits Requested Visits Authorized [id number] Closed Auto-Generate d Referral 04/29/2022 05/29/2023 1 1 Specialty Diagnoses / Procedures Referred By Contac t Referred To Contact MR IMAGING Diagnoses Pseudotumor cerebri Chronic intractable headache, unspecified headache type Procedures MRI BRAIN WO IVCON MRI BRAIN BRAIN STEM W/O CONTRAST MATERIAL Damien Shaver Jr., MD [address] [facility] [address] [place] [address] Mr Imaging Referral ID Status Reason Start Date Expiration Date V isits Requested Visits Authorized [id number] Closed Auto-Generate d Referral 04/29/2022 05/29/2023 1 1 Specialty Diagnoses / Procedures Referred By Contac t Referred To Contact Orthopedics Diagnoses Chronic right hip pain Procedures CONSULT TO ORTHOPAEDICS OFFICE/OUT[facility]IENT [facility] 60 MINUTES Sanket Cruz MD [address] [place] [address] Referral ID Status Reason Start Date Expiration Date Visits Requested Visits Authorized [id number] Authorized PCP Requested Referral 12/02/2024 12/02/2025 1 1 Specialty Diagnoses / Procedures Referred By Brien t Referred To Contact XR IMAGING Diagnoses Chronic right hip pain Procedures XR HIP GENERAL 3V PELV/AP/LAT RIGHT RADEX HIP UNILATERAL WITH PELVIS 2-3 VIEWS Sanket Cruz MD [address] [place] [address] [place] [address] Referral ID Status Reason Start Date Expiration Date Visits Requested Visits Authorized [id number] New Request Auto-Generat ed Referral 12/02/2024 01/01/2026 1 1 Medications Administered Section Inactive Administered Medications - up to 3 most recent administrations Medication Order MAR Action Action Date Dose Rate Site acetaminophen 650 mg tab(s) (TYLENOL) 650 mg, ORAL, EVERY 4 HOURS NEEDED, Starting on Tosha 05/30/22 at 1130, Until Fri05/31/22 at 0303, Mild Pain (1-3) - Enteral, [...] HIP PAIN/OA January 27, 2025 8:50 am Chief Complaint Admit Date RT HIP PAIN/OA January 27, 2025 8:50 am OSTEOARTHRITIS RT HIP May 10, 2025 1: 11pm ERAS, Hysterectomy,TLH, bilateral salpin gectomy, l May 12, 2025 5:30am Reason for Visit Admit Date Right hip pain May 10, 2025 1:11 pm Unilateral primary osteoarthritis, right hip May 10, 2025 1:11pm Dyspareunia May 12, 2025 5:30 am Fe deficiency anemia May 12, 2025 5:3 0am Menorrhagia May 12, 2025 5:30 am Submucous uterine fibroid May 12 5:30am Additional Source Comments INFORMATION SOURCE (unrecogn ized section and content) DATE CREATED AUTHOR 02/20/2021 [facility] DATE CREATED AUTHOR AUTHOR'S ORGANIZ ATION 05/07/2025 [facility] DATE CREATED AUTHOR AUTHOR'S ORGANIZ ATION 05/20/2025 [facility] DATE CREATED AUTHOR AUTHOR'S ORGANIZ ATION 06/04/2025 [facility] Source Comments (unrecognize d section and content) In the event this informatio n is protected by the Federal Confidentiality of Alcohol and Drug Abuse Patient Records regulations: The Federal rules restrict any use of the information to criminally investigate or prosecute any alcohol or drug abuse patient.[facility] the event this information is protected by the Federal Confidentiality of Alcohol and Drug Abuse Patient Records regulations: The Federal rules restrict any use of the information to criminally investigate or prosecute any alcohol or drug abuse patient.[facility] CenterIn the event this information is protected by the Federal Confidentiality of Alcohol and Drug Abuse Patient Records regulations: The Federal rules restrict any use of the information to criminally investigate or prosecute any alcohol or drug abuse patient.[facility] CenterIn the event this information is protected by the Federal Confidentiality of Alcohol and Drug Abuse Patient Records regulations: The Federal rules restrict any use of the information to criminally investigate or prosecute any alcohol or drug abuse patient.[facility] CenterIn the event this information is protected by the Federal Confidentiality of Alcohol and Drug Abuse Patient Records regulations: The Federal rules restrict any use of the information to criminally investigate or prosecute any alcohol or drug abuse patient.[facility] CenterIn the event this information is protected by the Federal Confidentiality of Alcohol and Drug Abuse Patient Records regulations: The Federal rules restrict any use of the information to criminally investigate or prosecute any alcohol or drug abuse patient.[facility] CenterIn the event this information is protected by the Federal Confidentiality of Alcohol and Drug Abuse Patient Records regulations: The Federal rules restrict any use of the information to criminally investigate or prosecute any alcohol or drug abuse patient.[facility] CenterIn the event this information is protected by the Federal Confidentiality of Alcohol and Drug Abuse Patient Records regulations: The Federal rules restrict any use of the information to criminally investigate or prosecute any alcohol or drug abuse patient.[facility] CenterIn the event this information is protected by the Federal Confidentiality of Alcohol and Drug Abuse Patient Records regulations: The Federal rules restrict any use of the information to criminally investigate or prosecute any alcohol or drug abuse patient.[facility] CenterIn the event this information is protected by the Federal Confidentiality of Alcohol and Drug Abuse Patient Records regulations: The Federal rules restrict any use of the information to criminally investigate or prosecute any alcohol or drug abuse patient.[facility] CenterIn the event this information is protected by the Federal Confidentiality of Alcohol and Drug Abuse Patient Records regulations: The Federal rules restrict any use of the information to criminally investigate or prosecute any alcohol or drug abuse patient.[facility] CenterIn the event this information is protected by the Federal Confidentiality of Alcohol and Drug Abuse Patient Records regulations: The Federal rules restrict any use of the information to criminally investigate or prosecute any alcohol or drug abuse patient.[facility] CenterIn the event this information is protected by the Federal Confidentiality of Alcohol and Drug Abuse Patient Records regulations: The Federal rules restrict any use of the information to criminally investigate or prosecute any alcohol or drug abuse patient.[facility] CenterIn the event this information is protected by the Federal Confidentiality of Alcohol and Drug Abuse Patient Records regulations: The Federal rules restrict any use of the information to criminally investigate or prosecute any alcohol or drug abuse patient.[facility] CenterIn the event this information is protected by the Federal Confidentiality of Alcohol and Drug Abuse Patient Records regulations: The Federal rules restrict any use of the information to criminally investigate or prosecute any alcohol or drug abuse patient.[facility] CenterIn the event this information is protected by the Federal Confidentiality of Alcohol and Drug Abuse Patient Records regulations: The Federal rules restrict any use of the information to criminally investigate or prosecute any alcohol or drug abuse patient.[facility] CenterIn the event this information is protected by the Federal Confidentiality of Alcohol and Drug Abuse Patient Records regulations: The Federal rules restrict any use of the information to criminally investigate or prosecute any alcohol or drug abuse patient.[facility] CenterIn the event this information is protected by the Federal Confidentiality of Alcohol and Drug Abuse Patient Records regulations: The Federal rules restrict any use of the information to criminally investigate or prosecute any alcohol or drug abuse patient.[facility] CenterIn the event this information is protected by the Federal Confidentiality of Alcohol and Drug Abuse Patient Records regulations: The Federal rules restrict any use of the information to criminally investigate or prosecute any alcohol or drug abuse patient.[facility] CenterIn the event this information is protected by the Federal Confidentiality of Alcohol and Drug Abuse Patient Records regulations: The Federal rules restrict any use of the information to criminally investigate or prosecute any alcohol or drug abuse patient.[facility] CenterIn the event this information is protected by the Federal Confidentiality of Alcohol and Drug Abuse Patient Records regulations: The Federal rules restrict any use of the information to criminally investigate or prosecute any alcohol or drug abuse patient.[facility] CenterIn the event this information is protected by the Federal Confidentiality of Alcohol and Drug Abuse Patient Records regulations: The Federal rules restrict any use of the information to criminally investigate or prosecute any alcohol or drug abuse patient.[facility] CenterIn the event this information is protected by the Federal Confidentiality of Alcohol and Drug Abuse Patient Records regulations: The Federal rules restrict any use of the information to criminally investigate or prosecute any alcohol or drug abuse patient.[facility] CenterIn the event this information is protected by the Federal Confidentiality of Alcohol and Drug Abuse Patient Records regulations: The Federal rules restrict any use of the information to criminally investigate or prosecute any alcohol or drug abuse patient.[facility] CenterIn the event this information is protected by the Federal Confidentiality of Alcohol and Drug Abuse Patient Records regulations: The Federal rules restrict any use of the information to criminally investigate or prosecute any alcohol or drug abuse patient.[facility] CenterIn the event this information is protected by the Federal Confidentiality of Alcohol and Drug Abuse Patient Records regulations: The Federal rules restrict any use of the information to criminally investigate or prosecute any alcohol or drug abuse patient.[facility] CenterIn the event this information is protected by the Federal Confidentiality of Alcohol and Drug Abuse Patient Records regulations: The Federal rules restrict any use of the information to criminally investigate or prosecute any alcohol or drug abuse patient.[facility] CenterIn the event this information is protected by the Federal Confidentiality of Alcohol and Drug Abuse Patient Records regulations: The Federal rules restrict any use of the information to criminally investigate or prosecute any alcohol or drug abuse patient.[facility] CenterIn the event this information is protected by the Federal Confidentiality of Alcohol and Drug Abuse Patient Records regulations: The Federal rules restrict any use of the information to criminally investigate or prosecute any alcohol or drug abuse patient.[facility] CenterIn the event this information is protected by the Federal Confidentiality of Alcohol and Drug Abuse Patient Records regulations: The Federal rules restrict any use of the information to criminally investigate or prosecute any alcohol or drug abuse patient.[facility] CenterIn the event this information is protected by the Federal Confidentiality of Alcohol and Drug Abuse Patient Records regulations: The Federal rules restrict any use of the information to criminally investigate or prosecute any alcohol or drug abuse patient.[facility] CenterIn the event this information is protected by the Federal Confidentiality of Alcohol and Drug Abuse Patient Records regulations: The Federal rules restrict any use of the information to criminally investigate or prosecute any alcohol or drug abuse patient.[facility] CenterIn the event this information is protected by the Federal Confidentiality of Alcohol and Drug Abuse Patient Records regulations: The Federal rules restrict any use of the information to criminally investigate or prosecute any alcohol or drug abuse patient.[facility] CenterIn the event this information is protected by the Federal Confidentiality of Alcohol and Drug Abuse Patient Records regulations: The Federal rules restrict any use of the information to criminally investigate or prosecute any alcohol or drug abuse patient.[facility] CenterIn the event this information is protected by the Federal Confidentiality of Alcohol and Drug Abuse Patient Records regulations: The Federal rules restrict any use of the information to criminally investigate or prosecute any alcohol or drug abuse patient.[facility] CenterIn the event this information is protected by the Federal Confidentiality of Alcohol and Drug Abuse Patient Records regulations: The Federal rules restrict any use of the information to criminally investigate or prosecute any alcohol or drug abuse patient.[facility] CenterIn the event this information is protected by the Federal Confidentiality of Alcohol and Drug Abuse Patient Records regulations: The Federal rules restrict any use of the information to criminally investigate or prosecute any alcohol or drug abuse patient.[facility] CenterIn the event this information is protected by the Federal Confidentiality of Alcohol and Drug Abuse Patient Records regulations: The Federal rules restrict any use of the information to criminally investigate or prosecute any alcohol or drug abuse patient.[facility] CenterIn the event this information is protected by the Federal Confidentiality of Alcohol and Drug Abuse Patient Records regulations: The Federal rules restrict any use of the information to criminally investigate or prosecute any alcohol or drug abuse patient.[facility] CenterIn the event this information is protected by the Federal Confidentiality of Alcohol and Drug Abuse Patient Records regulations: The Federal rules restrict any use of the information to criminally investigate or prosecute any alcohol or drug abuse patient.[facility] CenterIn the event this information is protected by the Federal Confidentiality of Alcohol and Drug Abuse Patient Records regulations: The Federal rules restrict any use of the information to criminally investigate or prosecute any alcohol or drug abuse patient.[facility] CenterIn the event this information is protected by the Federal Confidentiality of Alcohol and Drug Abuse Patient Records regulations: The Federal rules restrict any use of the information to criminally investigate or prosecute any alcohol or drug abuse patient.[facility] CenterIn the event this information is protected by the Federal Confidentiality of Alcohol and Drug Abuse Patient Records regulations: The Federal rules restrict any use of the information to criminally investigate or prosecute any alcohol or drug abuse patient.[facility] CenterIn the event this information is protected by the Federal Confidentiality of Alcohol and Drug Abuse Patient Records regulations: The Federal rules restrict any use of the information to criminally investigate or prosecute any alcohol or drug abuse patient.[facility] CenterIn the event this information is protected by the Federal Confidentiality of Alcohol and Drug Abuse Patient Records regulations: The Federal rules restrict any use of the information to criminally investigate or prosecute any alcohol or drug abuse patient.[facility] CenterIn the event this information is protected by the Federal Confidentiality of Alcohol and Drug Abuse Patient Records regulations: The Federal rules restrict any use of the information to criminally investigate or prosecute any alcohol or drug abuse patient.[facility] CenterIn the event this information is protected by the Federal Confidentiality of Alcohol and Drug Abuse Patient Records regulations: The Federal rules restrict any use of the information to criminally investigate or prosecute any alcohol or drug abuse patient.[facility] CenterIn the event this information is protected by the Federal Confidentiality of Alcohol and Drug Abuse Patient Records regulations: The Federal rules restrict any use of the information to criminally investigate or prosecute any alcohol or drug abuse patient.[facility] CenterIn the event this information is protected by the Federal Confidentiality of Alcohol and Drug Abuse Patient Records regulations: The Federal rules restrict any use of the information to criminally investigate or prosecute any alcohol or drug abuse patient.[facility] CenterIn the event this information is protected by the Federal Confidentiality of Alcohol and Drug Abuse Patient Records regulations: The Federal rules restrict any use of the information to criminally investigate or prosecute any alcohol or drug abuse patient.[facility] CenterIn the event this information is protected by the Federal Confidentiality of Alcohol and Drug Abuse Patient Records regulations: The Federal rules restrict any use of the information to criminally investigate or prosecute any alcohol or drug abuse patient.[facility] CenterIn the event this information is protected by the Federal Confidentiality of Alcohol and Drug Abuse Patient Records regulations: The Federal rules restrict any use of the information to criminally investigate or prosecute any alcohol or drug abuse patient.[facility] CenterIn the event this information is protected by the Federal Confidentiality of Alcohol and Drug Abuse Patient Records regulations: The Federal rules restrict any use of the information to criminally investigate or prosecute any alcohol or drug abuse patient.[facility] CenterIn the event this information is protected by the Federal Confidentiality of Alcohol and Drug Abuse Patient Records regulations: The Federal rules restrict any use of the information to criminally investigate or prosecute any alcohol or drug abuse patient.[facility] CenterIn the event this information is protected by the Federal Confidentiality of Alcohol and Drug Abuse Patient Records regulations: The Federal rules restrict any use of the information to criminally investigate or prosecute any alcohol or drug abuse patient.[facility] CenterIn the event this information is protected by the Federal Confidentiality of Alcohol and Drug Abuse Patient Records regulations: The Federal rules restrict any use of the information to criminally investigate or prosecute any alcohol or drug abuse patient.[facility] CenterIn the event this information is protected by the Federal Confidentiality of Alcohol and Drug Abuse Patient Records regulations: The Federal rules restrict any use of the information to criminally investigate or prosecute any alcohol or drug abuse patient.[facility] CenterIn the event this information is protected by the Federal Confidentiality of Alcohol and Drug Abuse Patient Records regulations: The Federal rules restrict any use of the information to criminally investigate or prosecute any alcohol or drug abuse patient.[facility] CenterIn the event this information is protected by the Federal Confidentiality of Alcohol and Drug Abuse Patient Records regulations: The Federal rules restrict any use of the information to criminally investigate or prosecute any alcohol or drug abuse patient.[facility] CenterIn the event this information is protected by the Federal Confidentiality of Alcohol and Drug Abuse Patient Records regulations: The Federal rules restrict any use of the information to criminally investigate or prosecute any alcohol or drug abuse patient.[facility] CenterIn the event this information is protected by the Federal Confidentiality of Alcohol and Drug Abuse Patient Records regulations: The Federal rules restrict any use of the information to criminally investigate or prosecute any alcohol or drug abuse patient.[facility] CenterIn the event this information is protected by the Federal Confidentiality of Alcohol and Drug Abuse Patient Records regulations: The Federal rules restrict any use of the information to criminally investigate or prosecute any alcohol or drug abuse patient.[facility] CenterIn the event this information is protected by the Federal Confidentiality of Alcohol and Drug Abuse Patient Records regulations: The Federal rules restrict any use of the information to criminally investigate or prosecute any alcohol or drug abuse patient.[facility] CenterIn the event this information is protected by the Federal Confidentiality of Alcohol and Drug Abuse Patient Records regulations: The Federal rules restrict any use of the information to criminally investigate or prosecute any alcohol or drug abuse patient.[facility] CenterIn the event this information is protected by the Federal Confidentiality of Alcohol and Drug Abuse Patient Records regulations: The Federal rules restrict any use of the information to criminally investigate or prosecute any alcohol or drug abuse patient.[facility] CenterIn the event this information is protected by the Federal Confidentiality of Alcohol and Drug Abuse Patient Records regulations: The Federal rules restrict any use of the information to criminally investigate or prosecute any alcohol or drug abuse patient.[facility] CenterIn the event this information is protected by the Federal Confidentiality of Alcohol and Drug Abuse Patient Records regulations: The Federal rules restrict any use of the information to criminally investigate or prosecute any alcohol or drug abuse patient.[facility] CenterIn the event this information is protected by the Federal Confidentiality of Alcohol and Drug Abuse Patient Records regulations: The Federal rules restrict any use of the information to criminally investigate or prosecute any alcohol or drug abuse patient.[facility] CenterIn the event this information is protected by the Federal Confidentiality of Alcohol and Drug Abuse Patient Records regulations: The Federal rules restrict any use of the information to criminally investigate or prosecute any alcohol or drug abuse patient.[facility] CenterIn the event this information is protected by the Federal Confidentiality of Alcohol and Drug Abuse Patient Records regulations: The Federal rules restrict any use of the information to criminally investigate or prosecute any alcohol or drug abuse patient.[facility] CenterIn the event this information is protected by the Federal Confidentiality of Alcohol and Drug Abuse Patient Records regulations: The Federal rules restrict any use of the information to criminally investigate or prosecute any alcohol or drug abuse patient.[facility] CenterIn the event this information is protected by the Federal Confidentiality of Alcohol and Drug Abuse Patient Records regulations: The Federal rules restrict any use of the information to criminally investigate or prosecute any alcohol or drug abuse patient.[facility] CenterIn the event this information is protected by the Federal Confidentiality of Alcohol and Drug Abuse Patient Records regulations: The Federal rules restrict any use of the information to criminally investigate or prosecute any alcohol or drug abuse patient.[facility] CenterIn the event this information is protected by the Federal Confidentiality of Alcohol and Drug Abuse Patient Records regulations: The Federal rules restrict any use of the information to criminally investigate or prosecute any alcohol or drug abuse patient.[facility] Care Teams (unrecognized sec tion and content) Team Status: Active Member Role Status Dates Dr. Sanket Cruz MD Primary Care Provider Active Team Status: Inactive Member Role Status Dates No Primary Care Physician Primary Care Provider Active Start: January 27, 2025 End: January 27, 2025 Dr. Erick Brownlee MD Attending Provider Active Start: January 27, 2025 End: January 27, 2025 Dr. Erick Brownlee MD Referring Provider Active Start: January 27, 2025 End: January 27, 2025 Team Status: Active Member Role Status Dates Dr. Erick Brownlee MD Attending Provider Active Start: May 10, 2025 Dr. Erick Brownlee MD Referring Provider Active Start: May 10, 2025 Dr. Sanket Cruz MD Primary Care Provider Active Start: May 10, 2025 Team Status: Inactive Member Role Status Dates Dr. Tim Yip MD Attending Provider Active Start: May 12, 2025 End: May 12, 2025 Dr. Tim Yip MD Referring Provider Active Start: May 12, 2025 End: May 12, 2025 Dr. Sanket Cruz MD Primary Care Provider Active Start: May 12, 2025 End: May 12, 2025 Sales Support Associate Relationship Specialty Start Date End Date Sanket Cruz MD [address] [place] [address] PCP - General Family Practice 08/17/15 Sales Support Associate Relationship Specialty Start Date End Date Sanket Cruz MD [facility] [place] [address] PCP - General Family Practice 08/17/15 Sales Support Associate Relationship Specialty Start Date End Date Sanket Cruz MD [address] [place] [address], [place] [address] PCP - General Family Practice 08/17/15 Sales Support Associate Relationship Specialty Start Date End Date Sanket Cruz MD [address] [place] [address], [place] [address] PCP - General Family Practice 08/17/15 Sales Support Associate Relationship Specialty Start Date End Date Sanket Cruz MD [address] [place] [address], [place] [address] PCP - General Family Practice 08/17/15 Sales Support Associate Relationship Specialty Start Date End Date Sanket Cruz MD [address] [place] [address], [place] [address] PCP - General Family Practice 08/17/15 Sales Support Associate Relationship Specialty Start Date End Date Sanket Cruz MD [address] [place] [address] [place] [address] PCP - General Family Practice 08/17/15 Sales Support Associate Relationship Specialty Start Date End Date Sanket Cruz MD [address] [place] [address], [place] [address] PCP - General Family Practice 08/17/15 Sales Support Associate Relationship Specialty Start Date End Date Sanket Cruz MD [address] [place] [address], [place] [address] PCP - General Family Practice 08/17/15 Sales Support Associate Relationship Specialty Start Date End Date Sanket Cruz MD [address] [place] [address] PCP - General Family Practice 08/17/15 Sales Support Associate Relationship Specialty Start Date End Date Sanket Cruz MD [address] [place] [address] PCP - General Family Practice 08/17/15 Sales Support Associate Relationship Specialty Start Date End Date Sanket Cruz MD [address] [place] [address] PCP - General Family Practice 08/17/15 Sales Support Associate Relationship Specialty Start Date End Date Sanket Cruz MD [facility] [place] [address] PCP - General Family Medicine 08/17/15 Sales Support Associate Relationship Specialty Start Date End Date Sanket Cruz MD [address] [place] [address] PCP - General Family Medicine 08/17/15 Sales Support Associate Relationship Specialty Start Date End Date Sanket Cruz MD [address] [place] [address] PCP - General Family Medicine 08/17/15 Sales Support Associate Relationship Specialty Start Date End Date Sanket Cruz MD [address] [place] [address] PCP - General Family Medicine 08/17/15 Sales Support Associate Relationship Specialty Start Date End Date Sanket Cruz MD [address] [place] [address] PCP - General Family Medicine 08/17/15 Sales Support Associate Relationship Specialty [place] [address] [place] [address] PCP - General Family Medicine 08/17/15 Sales Support Associate Relationship Specialty Start Date End Date Sanket Cruz MD [address] [place] [address] PCP - General Family Medicine 08/17/15 Sales Support Associate Relationship Specialty Start Date End Date Sanket Cruz MD [address] [place] [address] PCP - General Family Medicine 08/17/15 Sales Support Associate Relationship Specialty Start Date End Date Sanket Cruz MD [address] [place] [address] PCP - General Family Medicine 08/17/15 Sales Support Associate Relationship Specialty Start Date End Date Sanket Cruz MD [address] [place] [address] PCP - General Family Medicine 08/17/15 Sales Support Associate Relationship Specialty Start Date End Date Sanket Cruz MD [address] [place] [address] PCP - General Family Medicine 08/17/15 Sales Support Associate Relationship Specialty Start Date End Date Sanket Cruz MD [address] [place] [address] PCP - General Family Medicine 08/17/15 Sales Support Associate Relationship Specialty Start Date End Date Sanket Cruz MD [address] [place] [address] PCP - General Family Medicine 08/17/15 Sales Support Associate Relationship Specialty Start Date End Date Sanket Cruz MD [address] [place] [address] PCP - General Family Medicine 08/17/15 Funmilayo Davies, JOSUÉ.GROUP FITNESS ASSISTANT DEPARTMENT HEAD [address] [place] [address] Certified Juvenile Probation Officer Family Medicine 10/30/24 Shena Dwyer PA-C [address] [place] [address] Certified Juvenile Probation Officer Family Medicine 10/30/24 Sales Support Associate Relationship Specialty Start Date End Date Sanket Cruz MD [address] [place] [address] PCP - General Family Medicine 08/17/15 Funmilayo Davies, BRICK OR BLOCK MAKER.GROUP FITNESS ASSISTANT DEPARTMENT HEAD [address] [place] [address] Certified Juvenile Probation Officer Family Medicine 10/30/24 Shena Dwyer PA-C [address] [place] [address] Certified Juvenile Probation Officer Family Medicine 10/30/24 Sales Support Associate Relationship Specialty Start Date End Date Sanket Cruz MD [address] [place] [address] PCP - General Family Medicine 08/17/15 Funmilayo Davies, BRICK OR BLOCK MAKER.GROUP FITNESS ASSISTANT DEPARTMENT HEAD [address] [place] [address] Certified Juvenile Probation Officer Family Medicine 10/30/24 Shena Dwyer PA-C [address] [place] [address] Certified Juvenile Probation Officer Family Medicine 10/30/24 Sales Support Associate Relationship Specialty Start Date End Date Sanket Cruz MD [address] [facility] [place] [address] PCP - General Family Medicine 08/17/15 Funmilayo Davies, JOSUÉ.GROUP FITNESS ASSISTANT DEPARTMENT HEAD [address] [facility] [place] [address] Certified Juvenile Probation Officer Family Medicine 10/30/24 Shena Dwyer PA-C [address] [facility] [place] [address] Certified Juvenile Probation Officer Family Medicine 10/30/24 Sales Support Associate Relationship Specialty Start Date End Date Sanket Cruz MD [address] [facility] [place] [address] PCP - General Family Medicine 08/17/15 Funmilayo Davies, BRICK OR BLOCK MAKER.GROUP FITNESS ASSISTANT DEPARTMENT HEAD [address] [facility] [place] [address] Certified Juvenile Probation Officer Family Medicine 10/30/24 Shena Dwyer PA-C [address] [facility] [place] [address] Certified Juvenile Probation Officer Family Medicine 10/30/24 Sales Support Associate Relationship Specialty Start Date End Date Sanket Cruz MD [address] [facility] [place] [address] PCP - General Family Medicine 08/17/15 Funmilayo Davies, BRICK OR BLOCK MAKER.GROUP FITNESS ASSISTANT DEPARTMENT HEAD [address] [facility] [place] [address] Certified Juvenile Probation Officer Family Medicine 10/30/24 Shena Dwyer PA-C [address] [facility] [place] [address] Certified Juvenile Probation Officer Family Medicine 10/30/24 Sales Support Associate Relationship Specialty Start Date End Date Sanket Cruz MD [address] [place] [address] PCP - General Family Medicine 08/17/15 Funmilayo Davies, JOSUÉ.GROUP FITNESS ASSISTANT DEPARTMENT HEAD [address] [place] [address] Certified Juvenile Probation Officer Family Medicine 10/30/24 Shena Dwyer PA-C [address] [place] [address] Certified [facility] Sales Support Associate Relationship Specialty Start Date End Date Sanket Cruz MD [address] [place] [address] PCP - General Family Medicine 08/17/15 Funmilayo Davies, JOSUÉ.GROUP FITNESS ASSISTANT DEPARTMENT HEAD [address] [place] [address] Certified Juvenile Probation Officer Family Medicine 10/30/24 Shena Dwyer PA-C [address] [place] [address] Certified Juvenile Probation Officer Family Medicine 10/30/24 Sales Support Associate Relationship Specialty Start Date End Date Sanket Cruz MD [address] [place] [address] PCP - General Family Medicine 08/17/15 Funmilayo Davies, BRICK OR BLOCK MAKER.GROUP FITNESS ASSISTANT DEPARTMENT HEAD [address] [place] [address] Certified Juvenile Probation Officer Family Medicine 10/30/24 Shena Dwyer PA-C [address] [place] [address] Certified Juvenile Probation Officer Family Medicine 10/30/24 Sales Support Associate Relationship Specialty Start Date End Date Sanket Cruz MD [address] [place] [address] PCP - General Family Medicine 08/17/15 Funmilayo Davies APRN.GROUP FITNESS ASSISTANT DEPARTMENT HEAD [address] [place] [address] Certified Juvenile Probation Officer Family Medicine 10/30/24 Shena Dwyer PA-C [address] [place] [address] Certified Juvenile Probation Officer Family Medicine 10/30/24 Sales Support Associate Relationship Specialty Start Date End Date Sanket Cruz MD [address] [place] [address] PCP - General Family Medicine 08/17/15 Funmilayo Davies, BRICK OR BLOCK MAKER.GROUP FITNESS ASSISTANT DEPARTMENT HEAD [address] [place] [address] Certified Juvenile Probation Officer Family Medicine 10/30/24 Shena Dwyer PA-C [address] [place] [address] Certified Juvenile Probation Officer Family Medicine 10/30/24 Sales Support Associate Relationship Specialty Start Date End Date Sanket Cruz MD [address] [place] [address] PCP - General Family Medicine 08/17/15 Funmilayo Davies, BRICK OR BLOCK MAKER.GROUP FITNESS ASSISTANT DEPARTMENT HEAD [address] [place] [address] Certified Juvenile Probation Officer Family Medicine 10/30/24 Shena Dwyer PA-C [address] [place] [address] Certified Juvenile Probation Officer Family Medicine 10/30/24 Sales Support Associate Relationship Specialty Start Date End Date Sanket Cruz MD [address] [place] [address] PCP - General Family Medicine 08/17/15 Funmilayo Davies, JOSUÉ.GROUP FITNESS ASSISTANT DEPARTMENT HEAD [address] [place] [address] Certified Juvenile Probation Officer Family Medicine 10/30/24 Shena Dwyer PA-C [address] [place] [address] Certified Juvenile Probation Officer Family [facility] 10/30/24 Sales Support Associate Relationship Specialty Start Date End Date Sanket Cruz MD [address] [place] [address] PCP - General Family Medicine 08/17/15 Funmilayo Davies, JOSUÉ.GROUP FITNESS ASSISTANT DEPARTMENT HEAD [address] [place] [address] Certified Juvenile Probation Officer Family Medicine 10/30/24 Shena Dwyer PA-C [address] [place] [address] Certified Juvenile Probation Officer Family Medicine 10/30/24 Mine Doty MD [address] [place] [address] [employer] 02/10/25 Sales Support Associate Relationship Specialty Start Date End Date Sanket Cruz MD [address] [facility] [place] [address] PCP - General Family Medicine 08/17/15 Funmilayo Davies, BRICK OR BLOCK MAKER.GROUP FITNESS ASSISTANT DEPARTMENT HEAD [address] [place] [address] Certified Juvenile Probation Officer Family Medicine 10/30/24 Shena Dwyer PA-C [address] [place] [address] Certified Juvenile Probation Officer Family Medicine 10/30/24 Mine Doty MD [address] [place] [address] Elephant Tamer 02/10/25 Sales Support Associate Relationship Specialty Start Date End Date Sanket Cruz MD [address] [place] [address] PCP - General Family Medicine 08/17/15 Funmilayo Davies, BRICK OR BLOCK MAKER.GROUP FITNESS ASSISTANT DEPARTMENT HEAD [address] [place] [address] Certified Juvenile Probation Officer Family Medicine 10/30/24 Shena Dwyer PA-C [address] [place] [address] Certified Juvenile Probation Officer Family Medicine 10/30/24 Mine Doty MD [address] [place] [address] Elephant Tamer 02/10/25 Sales Support Associate Relationship Specialty Start Date End Date Sanket Cruz MD [address] [place] [address] PCP - General Family Medicine 08/17/15 Funmilayo Davies APRN.GROUP FITNESS ASSISTANT DEPARTMENT HEAD [address] [place] [address] Certified Juvenile Probation Officer Family Medicine 10/30/24 Shena Dwyer PA-C [address] [place] [address] Certified Juvenile Probation Officer Family Medicine 10/30/24 Mine Doty MD [address] [place] [address] Elephant Tamer 02/10/25 Team Status: Active Member Role Status Dates No Primary Care Physician Primary Care Provider Active Sales Support Associate Relationship Specialty Start Date End Date Sanket Cruz MD [address] [place] [address] PCP - General Family Medicine 08/17/15 Funmilayo Davies APRN.GROUP FITNESS ASSISTANT DEPARTMENT HEAD [address] [place] [address] Certified Juvenile Probation Officer Family [facility] 10/30/24 Shena Dwyer PA-C [address] [place] [address] Certified Juvenile Probation Officer Family Medicine 10/30/24 Mine Doty MD [address] [place] [address] Elephant Tamer 02/10/25 Sales Support Associate Relationship Specialty Start Date End Date Sanket Cruz MD [address] [place] [address] PCP - General Family Medicine 08/17/15 Funmilayo Davies APRN.GROUP FITNESS ASSISTANT DEPARTMENT HEAD [address] [place] [address] [facility] 10/30/24 Shena Dwyer PA-C [address] [place] [address] [facility] 10/30/24 Mine Doty MD [address] [place] [address] Elephant [employer] 02/10/25 Sales Support Associate Relationship Specialty Start Date End Date Sanket Cruz MD [address] [place] [address] PCP - General Family Medicine 08/17/15 Funmilayo Davies APRN.GROUP FITNESS ASSISTANT DEPARTMENT HEAD [address] [place] [address] [facility] 10/30/24 Shena Dwyer PA-C [address] [place] [address] [facility] 10/30/24 Mine Doty MD [address] [place] [address] Elephant [employer]amer 02/10/25 Sales Support Associate Relationship Specialty Start Date End Date Sanket Cruz MD [address] [place] [address] PCP - General Family Medicine 08/17/15 Fnumilayo Davies APRN.GROUP FITNESS ASSISTANT DEPARTMENT HEAD [address] [facility] [place] [address] Certified Juvenile Probation Officer Family Medicine 10/30/24 Shena Dwyer PA-C [address] [facility] [place] [address] Certified Juvenile Probation Officer Family Medicine 10/30/24 Mine Doty MD [address] [place] [facility] [place] [address] Elephant Tamer 02/10/25 Sales Support Associate Relationship Specialty Start Date End Date Sanket Cruz MD [address] [place] [address] PCP - General Family Medicine 08/17/15 Funmilayo Davies APRN.GROUP FITNESS ASSISTANT DEPARTMENT HEAD [address] [place] [address] Certified Juvenile Probation Officer Family [facility] 10/30/24 Shena Dwyer PA-C [address] [facility] [place] [address] Certified Juvenile Probation Officer Family Medicine 10/30/24 Mine Doty MD [address] [place] [address] Elephant Tamer 02/10/25 Sales Support Associate Relationship Specialty Start Date End Date Sanket Cruz MD [address] [place] [address] PCP - General Family Medicine 08/17/15 Funmilayo Davies APRN.GROUP FITNESS ASSISTANT DEPARTMENT HEAD [address] [place] [address] Certified Juvenile Probation Officer Family [facility] 10/30/24 Shena Dwyer PA-C [address] [place] [address] Certified Juvenile Probation Officer Family [facility] 10/30/24 Mine Doty MD [address] [place] [address] Elephant Tamer 02/10/25 Sales Support Associate Relationship Specialty Start Date End Date Sanket Cruz MD [address] [place] [address] PCP - General Family Medicine 02/28/25 Funmilayo Davies APRN.GROUP FITNESS ASSISTANT DEPARTMENT HEAD [facility] [place] [address] [facility] 10/30/24 Shena Dwyer PA-C [address] [place] [address] [facility] 10/30/24 Mine Doty MD [address] [place] [address] Elephant Tamer 02/10/25 Sales Support Associate Relationship Specialty Start Date End Date Sanket Cruz MD [address] [place] [address] PCP - General Family Medicine 02/28/25 Funmilayo Davies APRN.GROUP FITNESS ASSISTANT DEPARTMENT HEAD [address] [place] [address] Certified Juvenile Probation Officer Family Medicine 10/30/24 Shena Dwyer PA-C [address] [place] [address] Certified Juvenile Probation Officer Family Medicine 10/30/24 Mine Doty MD [address] [place] [address] Elephant [employer] 02/10/25 Sales Support Associate Relationship Specialty Start Date End Date Sanket Cruz MD [address] [place] [address] PCP - General Family Medicine 08/17/15 02/27/25 Sanket Cruz MD [address] [place] [address] PCP - General Family Medicine 02/28/25 Funmilayo Davies APRN.GROUP FITNESS ASSISTANT DEPARTMENT HEAD [address] [place] [address] Certified Juvenile Probation Officer Family Medicine 10/30/24 Shena Dwyer PA-C [address] [place] [address] Certified Juvenile Probation Officer Family Medicine 10/30/24 Mine Doty MD [address] [place] [address] Elephant Tamer 02/10/25 Sales Support Associate Relationship Specialty Start Date End Date Sanket Cruz MD [address] [place] [address] PCP - General Family Medicine 02/28/25 Funmilayo Davies APRN.GROUP FITNESS ASSISTANT DEPARTMENT HEAD [address] [place] [address] Certified Juvenile Probation Officer Family Medicine 10/30/24 Shena Dwyer PA-C [address] [place] [address] [facility] Family Medicine 10/30/24 Mine Doty MD [address] [place] [address] Elephant Tamer 02/10/25 Sales Support Associate Relationship Specialty Start Date End Date Sanket Cruz MD [address] [place] [address] PCP - General Family Medicine 02/28/25 Funmilayo Davies APRN.GROUP FITNESS ASSISTANT DEPARTMENT HEAD [facility] [place] [address] [facility] 10/30/24 Shena Dwyer PA-C [address] [place] [address] [facility] Family Medicine 10/30/24 Mine Doty MD [address] [place] [address] Elephant Tamer 02/10/25 Sales Support Associate Relationship Specialty Start Date End Date Sanket Cruz MD [address] [place] [address] PCP - General Family Medicine 02/28/25 Funmilayo Davies APRN.GROUP FITNESS ASSISTANT DEPARTMENT HEAD [facility] [place] [address] Certified Juvenile Probation Officer Family Medicine 10/30/24 Shena Dwyer PA-C [address] [place] [address] Certified Juvenile Probation Officer Family [facility] 10/30/24 Mine Doty MD [address] [place] [address] Elephant Tamer 02/10/25 Tanya Vernon, BRICK OR BLOCK MAKER.GROUP FITNESS ASSISTANT DEPARTMENT HEAD [address] [place] [address] Referring Neurology 03/28/25 Sales Support Associate Relationship Specialty Start Date End Date Sanket Cruz MD [address] [place] [address] PCP - General Family Medicine 02/28/25 Funmilayo Davies BRICK OR BLOCK MAKER.GROUP FITNESS ASSISTANT DEPARTMENT HEAD [address] [place], [place] [address] [facility] 10/30/24 Shena Dwyer PA-C [address] [place] [address] [facility] 10/30/24 Mine Doty MD [address] [place] [address] Elephant Tamer 02/10/25 Tanya Vernno, BRICK OR BLOCK MAKER.GROUP FITNESS ASSISTANT DEPARTMENT HEAD [address] [place] [address] Referring Neurology 03/28/25 Sales Support Associate Relationship Specialty Start Date End Date Sanket Cruz MD [address] [place], [place] [address] PCP - General Family Medicine 02/28/25 Funmilayo Davies, JOSUÉ.GROUP FITNESS ASSISTANT DEPARTMENT HEAD [address] [place] [address] Certified Juvenile Probation Officer Family [facility] 10/30/24 Shena Dwyer PA-C [address] [facility] [place] [address] Certified Juvenile Probation Officer Family [facility] 10/30/24 Mine Doty MD [address] [place] [address] Elephant Tamer 02/10/25 Tanya Vernon APRN.GROUP FITNESS ASSISTANT DEPARTMENT HEAD [address] [place] [address] Referring Neurology 03/28/25 Sales Support Associate Relationship Specialty Start Date End Date Sanket Cruz MD [address] [place] [address] PCP - General Family Medicine 08/17/15 02/27/25 Sanket Cruz MD [address] [place] [address] PCP - General Family Medicine 02/28/25 Funmilayo Davies APRN.GROUP FITNESS ASSISTANT DEPARTMENT HEAD [address] [place] [address] Certified Juvenile Probation Officer Family Medicine 10/30/24 Shena Dwyer PA-C [address] [facility] [place] [address] [facility] 10/30/24 Mine Doty MD [address] [place] [address] Elephant Tamer 02/10/25 Tanya Vernon APRN.GROUP FITNESS ASSISTANT DEPARTMENT HEAD [address] [place] [address] Referring Neurology 03/28/25 Sales Support Associate Relationship Specialty Start Date End Date Sanket Cruz MD [address] [place] [address] PCP - General Family Medicine 02/28/25 Funmilayo Davies APRN.GROUP FITNESS ASSISTANT DEPARTMENT HEAD [address] [place] [address] Certified Juvenile Probation Officer Family Medicine 10/30/24 Shena Dwyer PA-C [address] [place] [address] Certified Juvenile Probation Officer Family Medicine 10/30/24 Mine Doty MD [address] [place] [address] Elephant Tamer 02/10/25 Tanya Vernon, BRICK OR BLOCK MAKER.GROUP FITNESS ASSISTANT DEPARTMENT HEAD [address] [place] [address] Referring Neurology 03/28/25 Sales Support Associate Relationship Specialty Start Date End Date Sanket Cruz MD [address] [place], [place] [address] PCP - General Family Medicine 02/28/25 Funmilayo Davies, JOSUÉ.GROUP FITNESS ASSISTANT DEPARTMENT HEAD [address] [place] [address] Certified Juvenile Probation Officer Family Medicine 10/30/24 04/10/25 Shena Dwyer PA-C [address] [facility] [place] [address] Certified Juvenile Probation Officer Family Medicine 10/30/24 Mine Doty MD [address] [place] [address] Elephant Tamer 02/10/25 Tanya Vernon, BRICK OR BLOCK MAKER.GROUP FITNESS ASSISTANT DEPARTMENT HEAD [address] [facility] [place] [address] Referring Neurology 03/28/25 Sales Support Associate Relationship Specialty Start Date End Date Sanket Cruz MD [address] [place] [address] PCP - General Family Medicine 02/28/25 Mine Doty MD [address] [place] [facility] [place] [address] Elephant Tamer 02/10/25 Tanya Vernon, BRICK OR BLOCK MAKER.GROUP FITNESS ASSISTANT DEPARTMENT HEAD [address] [facility] [place] [address] Referring Neurology 03/28/25 Funmilayo Davies, BRICK OR BLOCK MAKER.GROUP FITNESS ASSISTANT DEPARTMENT HEAD [address] [facility] [place] [address] Certified Juvenile Probation Officer Family Medicine 04/25/25 Shena Dwyer PA-C [address] [facility] [place] [address] Certified Juvenile Probation Officer Family Medicine 04/25/25 Sales Support Associate Relationship Specialty Start Date End Date Sanket Cruz MD [address] [place] [address] PCP - General Family Medicine 02/28/25 Mine Doty MD [address] [place] [address] Elephant Tamer 02/10/25 Tanya Vernon, BRICK OR BLOCK MAKER.GROUP FITNESS ASSISTANT DEPARTMENT HEAD [address] [place] [address] Referring Neurology 03/28/25 Funmilayo Davies APRN.GROUP FITNESS ASSISTANT DEPARTMENT HEAD [address] [place] [address] Certified Juvenile Probation Officer Family [facility] 04/25/25 Shena Dwyer PA-C [address] [place] [address] [facility] Sales Support Associate Relationship Specialty Start Date End Date Sanket Cruz MD [address] [place] [address] [id number] PCP - General Family Medicine 02/28/25 Mine Doty MD [address] [place] [address] Elephant Tamer 02/10/25 Tanya Vernon, BRICK OR BLOCK MAKER.GROUP FITNESS ASSISTANT DEPARTMENT HEAD [address] [place] [address] Referring Neurology 03/28/25 Funmilayo Davies APRN.GROUP FITNESS ASSISTANT DEPARTMENT HEAD [address] [place] [address] Certified Juvenile Probation Officer Family Medicine 04/25/25 Shena Dwyer PA-C [address] [place], [place] [address] Certified Juvenile Probation Officer Family [facility] 04/25/25 Sales Support Associate Relationship Specialty Start Date End Date Sanket Cruz MD [address] [place], [place] [address] PCP - General Family Medicine 02/28/25 Shena Dwyer PA-C [address] [place] [address] Certified Juvenile Probation Officer Family [facility] 10/30/24 04/24/25 iMne Doty MD [address] [place], [place] [address] Elephant Tamer 02/10/25 Tanya Vernon BRICK OR BLOCK MAKER.GROUP FITNESS ASSISTANT DEPARTMENT HEAD [address] [place] [address] Referring Neurology 03/28/25 Sales Support Associate Relationship Specialty Start Date End Date Sanket Cruz MD [address] [place], [place] 206541 PCP - General Family Medicine 02/28/25 Mine Doty MD [address] [place] [address] Elephant Tamer 02/10/25 Tanya Vernon BRICK OR BLOCK MAKER.GROUP FITNESS ASSISTANT DEPARTMENT HEAD [address] [place], [place] [address] Referring Neurology 03/28/25 Funmilayo Davies APRN.GROUP FITNESS ASSISTANT DEPARTMENT HEAD [address] [place], [place] [id number] Certified Juvenile Probation Officer Family [facility] 04/25/25 Shena Dwyer PA-C [address] [place], [place] [address] [phone] [facility] 04/25/25 Sales Support Associate Relationship Specialty Start Date End Date Sanket Cruz MD [address] [place], [place] 350571 PCP - General Family Medicine 02/28/25 Mine Doty MD [address] [place] [address] Elephant Tamer 02/10/25 Tanya Vernon, BRICK OR BLOCK MAKER.GROUP FITNESS ASSISTANT DEPARTMENT HEAD [address] [place] [address] Referring Neurology 03/28/25 Funmilayo Davies APRN.GROUP FITNESS ASSISTANT DEPARTMENT HEAD [address] [place], [place] [address]86[address] [phone] [facility] 04/25/25 Shena Dwyer PA-C [address] [place] [address] [facility] 04/25/25 Sales Support Associate Relationship Specialty Start Date End Date Sanket Cruz MD [address] [place], [place] 8530[address] PCP - General Family Medicine 02/28/25 Mine Doty MD [address] [place] [address] Elephant Tamer 02/10/25 Tanya Vernon, BRICK OR BLOCK MAKER.GROUP FITNESS ASSISTANT DEPARTMENT HEAD [address] [place], [place] 8[address] Referring Neurology 03/28/25 Funmilayo Davies, JOSUÉ.GROUP FITNESS ASSISTANT DEPARTMENT HEAD [address] [place] [address] [phone] Certified Juvenile Probation Officer Family [facility] 04/25/25 Shena Dwyer PA-C [address] [place] [address] [facility] 04/25/25 Team Status: Inactive Member Role Status Dates Dr. Erick Brownlee MD Attending Provider Active Start: May 10, 2025 End: May 10, 2025 Dr. Erick Brownlee MD Referring Provider Active Start: May 10, 2025 End: May 10, 2025 Dr. Sanket Curz MD Primary Care Provider Active Start: May 10, 2025 End: May 10, 2025 Sales Support Associate Relationship Specialty Start Date End Date Sanket Cruz MD [address] [place] [address] 614161 PCP - General Family Medicine 02/28/25 Mine Doty MD [address] [place] [address] Elephant Tamer 02/10/25 Tanya Vernon, JOSUÉ.GROUP FITNESS ASSISTANT DEPARTMENT HEAD [address] [place] [address] 299461 Referring Neurology 03/28/25 Funmilayo Davies, JOSUÉ.GROUP FITNESS ASSISTANT DEPARTMENT HEAD [address] [place] [phone] [facility] 04/25/25 Shena Dwyer PA-C [address] [place] [address] [phone] [facility] 04/25/25 Sales Support Associate Relationship Specialty Start Date End Date Sanket Cruz MD [address] [place] [address] PCP - General Family Medicine 02/28/25 Mine Doty MD [address] [place] [address] Elephant Tamer 02/10/25 Tanya Vernon APRN.GROUP FITNESS ASSISTANT DEPARTMENT HEAD [address] [place] [address] Referring Neurology 03/28/25 Funmilayo Davies APRN.GROUP FITNESS ASSISTANT DEPARTMENT HEAD [address] [place] [address] [facility] 04/25/25 Shena Dwyer PA-C [address] [place] [address] [phone] [facility] 04/25/25 Reason for Visit (unrecogniz ed section and content) Reason Comments New Patient Specialty Diagnoses / Procedures Referred By Brien t Referred To Contact Neurosurgery Diagnoses Abnormal MRI IIH (idiopathic intracranial hypertension) Procedures CONSULT TO NEUROSURGERY OFFICE/OUTPATIENT [facility] 60 MINUTES Tanya Vernon, JOSUÉ.GROUP FITNESS ASSISTANT DEPARTMENT HEAD [address] [address] Phone: tel: fax: Referral ID Status Reason Start Date Expiration Date V isits Requested Visits Authorized [id number] Closed PCP Requested Referral 03/25/2025 03/25/2026 1 1 Reason Comments Fever Reason Comments Recheck 5 months Specialty Diagnoses / Procedures Referred By Brien t Referred To Contact MR IMAGING Diagnoses Pseudotumor cerebri Chronic intractable headache, unspecified headache type Procedures MRI BRAIN WO IVCON MRI BRAIN BRAIN STEM W/O CONTRAST MATERIAL Damien Shaver Jr., MD [address] [address] Mr Imaging Referral ID Status Reason Start Date Expiration Date V isits Requested Visits Authorized [id number] Closed Auto-Generate d Referral 04/29/2022 05/29/2023 1 1 Reason Comments Results - Mri Reason Comments Results Reason Comments Med Change Request Reason Onset Date Comments error 05/23/2022 Reason Comments Headache Reason Comments Refill Request Reason Comments Physical Reason Comments Results Appointment Reason Comments Radiology US Specialty Diagnoses / Procedures Referred By Brien t Referred To Contact BR IMAGING Diagnoses Abnormal mammogram Procedures US BREAST LTD LEFT US BREAST UNI REAL TIME WITH IMAGE LIMITED Sanket Cruz MD [address] [place] [address] [facility] [address] [place] [phone] Referral ID Status Reason Start Date Expiration Date V isits Requested Visits Authorized [id number] Closed Auto-Generate d Referral 09/16/2023 10/15/2024 1 1 Reason Comments Results Reason Comments Radiology US Specialty Diagnoses / Procedures Referred By Brien t Referred To Contact BR IMAGING Diagnoses Mass of left breast, unspecified quadrant Abnormal mammogram Procedures US BREAST LTD LEFT US BREAST UNI REAL TIME WITH IMAGE LIMITED Sanket Cruz MD [address] [place] [address] [facility] [address] [place] [address] Referral ID Status Reason Start Date Expiration Date V isits Requested Visits Authorized [id number] Closed Auto-Generate d Referral 04/08/2024 11/07/2024 1 [...] pain Specialty Diagnoses / Procedures Referred By Brien t Referred To Contact Orthopedics Diagnoses Chronic right hip pain Procedures CONSULT TO ORTHOPAEDICS OFFICE/OUTPATIENT [facility] 60 MINUTES Sanket Cruz MD [address] [place] [address] Phone: tel: fax: Referral ID Status Reason Start Date Expiration Date V isits Requested Visits Authorized [id number] Closed PCP Requested Referral 12/02/2024 12/02/2025 1 1 Reason Comments excessive menses Reason Comments Yearly Exam Reason Comments Follow Up Reason Comments Blood Management Reason Comments Non-Chemotherapy Treatment Specialty Diagnoses / Procedures Referred By Contac t Referred To Contact Diagnoses Iron deficiency anemia due to chronic blood loss Low iron Procedures IRON SUCROSE INJECTION PER 1 MG Petra Grant [address] [facility] [place] [address] Phone: tel: fax: Petra Grant [address] [facility] [place] [address] Phone: tel: fax: Referral ID Status Reason Start Date Expiration Date V isits Requested Visits Authorized [id number] Authorized 02/14/2025 11/23/2025 0 99 Specialty Diagnoses / Procedures Referred By Contac t Referred To Contact Hematology Diagnoses Iron deficiency anemia, unspecified iron deficiency anemia type Procedures CONSULT TO HEMATOLOGY OFFICE/OUTPATIENT [facility] 60 MINUTES Shena Dwyer PA-C [address] [place] [address] Phone: tel: fax: Referral ID Status Reason Start Date Expiration Date V isits Requested Visits Authorized [id number] Closed PCP Requested Referral 01/31/2025 01/31/2026 1 1 Reason Comments Appointment Rescheduled Appointment Cancelled Reason Comments Follow Up Headache Reason Comments Social Work Services 1st Time Treatment Report Reason Comments Consult Hyst for AUB Reason Comments Ear Problem Bilateral pain, L fe els full of water x6 days Reason Comments Future Appointment New Patient [place] Any 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 Reason Comments Pre-Op Visit Specialty Diagnoses / Procedures Referred By Contac t Referred To Contact BR IMAGING Diagnoses Abnormal mammogram Procedures US BREAST LTD LEFT US BREAST UNI REAL TIME WITH IMAGE LIMITED Mine Doty MD [address] [place] [address] Phone: tel: fax: BR IMAGING [address] [place] [address] Referral ID Status Reason Start Date Expiration Date V isits Requested Visits Authorized [id number] Closed Auto-Generate d Referral 01/20/2025 02/19/2026 1 1 Reason Comments Outside Ortho Procedure Reason Comments Post-Op Visit Reason Comments Abstract Ortho Procedure PRN Active and Recently Administ ered Medications (unrecognized section and content) Medication Order 05/28/2022 05/29/2022 05/30/2022 acetaminophen 650 mg tab(s) (TYLENOL) 650 mg, ORAL, EVERY 4 HOURS NEEDED, Starting on Tosha 05/30/22 at 1130, Until Fri05/31/22 at 0303, Mild Pain (1-3) - Enteral, [...] may be documented in an alternate section FOR RECORDS PERTAINING TO PATIENTS WHO ARE [...] BE BASED ON THE PRIMARY CLINICAL RECORDS. [email or web address] provides no warranty or guarantee of the accuracy or completeness of information in this document.
[2025-06-04 17:14] LABS: Mucous, Urine 0 SEEN /hpf (<or=2+)
[2025-06-04 17:16] LABS: Color, Urine Straw (Yellow); Glucose, Dipstick Normal (Normal); Ketone-Dipstick Negative (Negative); Leukocyte Esterase-Dipstick Negative /ul (Negative); Nitrite-Dipstick Negative (Negative); Occult Blood-Urine 150 /ul (Negative); Protein-Dipstick Negative (Negative); Specific Gravity, Urine 1.020 (1.002-1.030); Urine Bilirubin Dipstick Negative (Negative)
[2025-06-04 17:25] VITALS: BP 124/78; PULSE 78; RESP 16; TEMP 36.5; O2SAT 97
[2025-06-04 17:32] LABS: Squamous Epithelial Cells - UA 0-5 SEEN /hpf (5-10)
[2025-06-04 17:33] LABS: Red Blood Cells-Urine 0-5 SEEN /hpf (0-5)
== END 2025-06-04 17:28 | disposition home or self-care (01) ==
PROVIDERS: Physician Assistant; Emergency Provider Emergency Medicine; PCP Family Medicine; Visit Provider Emergency Medicine
DX: N99.820 Postprocedural hemorrhage of a genitourinary system organ or structure following a genitourinary system procedure (principal); Z98.890 Other specified postprocedural states
CPT/HCPCS: 81001; 99282